=== PATIENT | female | born 1945 | race Two or more races ===

== ENCOUNTER 2021-10-30 12:20 | Outpatient (REF) | payer OTHER, SELFPAY ==
--- NOTE | ~2021-10-30 | XR_ITS ---
EXAMINATION: AP PELVIS AP BILATERAL KNEE STANDING. BILATERAL KNEE. CLINICAL INFORMATION: Hip pain and knee pain. COMPARISON: None TECHNIQUE: AP pelvis one view. AP bilateral knee 1 view. 2 views each knee. FINDINGS: AP pelvis: There is normal symmetry of bilateral hip joints and SI joints. There is no fracture, dislocation or bony abnormality. The soft tissues are normal. Bilateral AP knee: There is mild reduction in medial and lateral compartment joint space with mild periarticular spurring in the lateral compartments. No loose bodies or bony erosive changes. Left knee: There is reduction in the patellofemoral joint space with mild anterior superior patellar enthesophytes. No loose body seen. No bony erosive changes. Right knee: There is reduction the patellofemoral compartment joint space with anterior superior patellar spurring. There is mild suprapatellar joint effusion. No loose bodies, acute fracture or dislocation seen. XR/XR knee standing BI IMPRESSION: Markable AP pelvis exam. Mild degenerative changes tricompartment both knees. There is anterior superior patellar enthesophytes. Suspect mild right knee joint effusion. There is no acute fracture, loose bodies or bony erosive changes in either knee joints.
--- NOTE | ~2021-10-30 | XR_ITS ---
EXAMINATION: AP PELVIS AP BILATERAL KNEE STANDING. BILATERAL KNEE. CLINICAL INFORMATION: Hip pain and knee pain. COMPARISON: None TECHNIQUE: AP pelvis one view. AP bilateral knee 1 view. 2 views each knee. FINDINGS: AP pelvis: There is normal symmetry of bilateral hip joints and SI joints. There is no fracture, dislocation or bony abnormality. The soft tissues are normal. Bilateral AP knee: There is mild reduction in medial and lateral compartment joint space with mild periarticular spurring in the lateral compartments. No loose bodies or bony erosive changes. Left knee: There is reduction in the patellofemoral joint space with mild anterior superior patellar enthesophytes. No loose body seen. No bony erosive changes. Right knee: There is reduction the patellofemoral compartment joint space with anterior superior patellar spurring. There is mild suprapatellar joint effusion. No loose bodies, acute fracture or dislocation seen. XR/XR knee LT 2V IMPRESSION: Markable AP pelvis exam. Mild degenerative changes tricompartment both knees. There is anterior superior patellar enthesophytes. Suspect mild right knee joint effusion. There is no acute fracture, loose bodies or bony erosive changes in either knee joints.
--- NOTE | ~2021-10-30 | XR_ITS ---
EXAMINATION: AP PELVIS AP BILATERAL KNEE STANDING. BILATERAL KNEE. CLINICAL INFORMATION: Hip pain and knee pain. COMPARISON: None TECHNIQUE: AP pelvis one view. AP bilateral knee 1 view. 2 views each knee. FINDINGS: AP pelvis: There is normal symmetry of bilateral hip joints and SI joints. There is no fracture, dislocation or bony abnormality. The soft tissues are normal. Bilateral AP knee: There is mild reduction in medial and lateral compartment joint space with mild periarticular spurring in the lateral compartments. No loose bodies or bony erosive changes. Left knee: There is reduction in the patellofemoral joint space with mild anterior superior patellar enthesophytes. No loose body seen. No bony erosive changes. Right knee: There is reduction the patellofemoral compartment joint space with anterior superior patellar spurring. There is mild suprapatellar joint effusion. No loose bodies, acute fracture or dislocation seen. XR/XR knee RT 2V IMPRESSION: Markable AP pelvis exam. Mild degenerative changes tricompartment both knees. There is anterior superior patellar enthesophytes. Suspect mild right knee joint effusion. There is no acute fracture, loose bodies or bony erosive changes in either knee joints.
--- NOTE | ~2021-10-30 | XR_ITS ---
EXAMINATION: AP PELVIS AP BILATERAL KNEE STANDING. BILATERAL KNEE. CLINICAL INFORMATION: Hip pain and knee pain. COMPARISON: None TECHNIQUE: AP pelvis one view. AP bilateral knee 1 view. 2 views each knee. FINDINGS: AP pelvis: There is normal symmetry of bilateral hip joints and SI joints. There is no fracture, dislocation or bony abnormality. The soft tissues are normal. Bilateral AP knee: There is mild reduction in medial and lateral compartment joint space with mild periarticular spurring in the lateral compartments. No loose bodies or bony erosive changes. Left knee: There is reduction in the patellofemoral joint space with mild anterior superior patellar enthesophytes. No loose body seen. No bony erosive changes. Right knee: There is reduction the patellofemoral compartment joint space with anterior superior patellar spurring. There is mild suprapatellar joint effusion. No loose bodies, acute fracture or dislocation seen. XR/XR pelvis 1-2V IMPRESSION: Markable AP pelvis exam. Mild degenerative changes tricompartment both knees. There is anterior superior patellar enthesophytes. Suspect mild right knee joint effusion. There is no acute fracture, loose bodies or bony erosive changes in either knee joints.
== END 2021-10-30 12:21 | disposition home or self-care (01) ==
LOC: HO.HOSX 12:20
PROVIDERS: Visit Provider Orthopaedic Surgery
DX: M25.561 Pain in right knee (principal); M25.562 Pain in left knee; M25.551 Pain in right hip; M25.552 Pain in left hip
CPT/HCPCS: 72170; 73560; 73565; 99202

== ENCOUNTER → 2021-11-28 10:10 | Outpatient (BNVA) | payer OTHER, SELFPAY | PROVIDERS: PCP Family Medicine; Visit Provider Internal Medicine | DX: M17.0 Bilateral primary osteoarthritis of knee (principal); E11.9 Type 2 diabetes mellitus without complications; I10 Essential (primary) hypertension; E78.00 Pure hypercholesterolemia, unspecified; Z88.8 Allergy status to other drugs, medicaments and biological substances | CPT/HCPCS: 99202 ==

== ENCOUNTER → 2022-01-05 08:27 | Outpatient (BNVA) | payer OTHER, SELFPAY | PROVIDERS: PCP Family Medicine; Visit Provider Orthopaedic Surgery | DX: M17.0 Bilateral primary osteoarthritis of knee (principal) | CPT/HCPCS: 99212 ==

== ENCOUNTER 2022-03-20 06:47 | Outpatient (REF) | payer OTHER, SELFPAY | END 2022-03-20 06:48 | disposition home or self-care (01) | LOC: HO.RADIR 06:47 | PROVIDERS: Visit Provider Internal Medicine | DX: M25.561 Pain in right knee (principal); M25.562 Pain in left knee | CPT/HCPCS: 64447 ==

== ENCOUNTER → 2022-03-23 10:54 | Outpatient (BNVA) | payer OTHER, SELFPAY | PROVIDERS: PCP Family Medicine; Visit Provider Internal Medicine | DX: M25.561 Pain in right knee (principal); M25.562 Pain in left knee; Z98.890 Other specified postprocedural states | CPT/HCPCS: Q3014 ==

== ENCOUNTER 2022-05-06 07:23 | Outpatient (REF) | payer OTHER, SELFPAY | END 2022-05-06 07:24 | disposition home or self-care (01) | LOC: HO.RADIR 07:23 | PROVIDERS: Visit Provider Internal Medicine | DX: M17.0 Bilateral primary osteoarthritis of knee (principal); M25.562 Pain in left knee; M25.561 Pain in right knee | CPT/HCPCS: 64447 ==

== ENCOUNTER 2022-10-14 12:33 | Day surgery (SDC) | payer OTHER, SELFPAY ==
[2022-10-14 12:50] VITALS: BP 194/77; PULSE 86; RESP 20; TEMP 36.3; O2SAT 98; BMI 31.4
--- NOTE | 2022-10-14 13:53 | MHC.SHP ---
Pre-Procedural Eval Section A Date of Service: 10/14/22 The patient is an INPATIENT: No Changes since office visit: Yes Patient answered all questions The History & Physical has been completed within 30 days and I have reviewed it.: Yes Section B Chief Complaint: Pain in right knee,Pain in left knee Relevant Family History (Specify if Yes): No Relevant Social History: None Present Medications: see Short Stay Collaborative assessment Medical History: No relevant PMH History of Previous Operations: No relevant previous surgery Allergies: Allergies Allergy/AdvReac Type Severity Reaction Status Date / Time prednisone Allergy Unknown Verified 05/06/22 07:58 steroids Allergy Anaphylaxis Uncoded 05/06/22 07:58 Review of Systems Sugical H&P ROS: Negative: Constitution, Cardiovascular and Respiratory Exam Surgical H&P Exam: Normal: HEENT, Normal: Heart and Normal: Lungs Plan Diagnosis/Plan: Unchanged 76 F w/ chronic right knee pain. Positive diagnostic response to saphenous nerve block. Proceed with right saphenous nerve temporary stimulator placement. Patient in agreement with the plan. Time Spent With Patient Time: Total time managing care of this patient today ____ minutes.
--- NOTE | 2022-10-14 13:56 | PM.OP ---
Brief Operative Note Date of Service: 10/14/22 Pre-op diagnosis: Chronic right knee pain, right knee osteoarthritis Post-op diagnosis: same Procedure: Temporary right saphenous nerve stimulator placement Implants: SPR temporary nerve stimulation lead Surgeon: Isael Archer MD Anesthesia: local Was an Home And Family Living Professor used for this Procedure?: No Estimated blood loss (mL): 1 Pathology: none sent Condition: stable Disposition: same day
--- NOTE | 2022-10-14 13:58 | P.OP_ITS ---
Operative Note Operative Note Date of Service: 10/14/22 Narrative: Peripheral Nerve Stimulation Temporary Lead Placement, Ultrasound-Guided, Saphenous Nerve, Right ? After the risks, benefits and alternatives were discussed with the patient and informed consentwas obtained, patient was placed in the supine position and padded to foster comfort. Appropriate skin and bony landmarks were identified, and pertinent vascular structures were located. The skin overlying the needle entry site was prepped and draped in sterile fashion. Ultrasound was used to identify the femoral artery, the femoral vein and the saphenous nerve. After identifying and marking the intended target along the course of the saphenous nerve, the skin around the planned entry point and the subcutaneous tissues were injected with local anesthetic. An introducer needle and stimulating probe were assembled, inserted and advanced along the intended course of the saphenous; nerve, taking care to maintain the proper depth of insertion as the introducer was advanced under ultrasound guidance. The introducer needle was delivered to a location in proximity to the nerve taking care not to puncture the femoral artery or the vein. Multiple stimulation parameters were used to deliver stimulation to the saphenous nerve in concert with stimulating at multiple positions around the nerve. Nerve target acquisition was confirmed noting generation of sensory and mild motor effects (paresthesia, muscle tension, etc) in the medial knee, leg and ankle; corresponding to the distribution of the saphenous nerve. Various electrical parameter combinations were tested, and the lead location was adjusted (physic ally relocated under ultrasound guidance) until the patient indicated medial knee paresthesia and tension overlapping the distribution of the patient?s typical region of pain. The stimulating probe was removed from the introducer and a percutaneous lead was guided through the needle and delivered to a location in similar proximity to the nerve. Final location was verified with electrical stimulation and documented. The introducer needle was removed, and the exposed end of the percutaneous lead was attached to an external stimulator unit. Various electrical parameter combinations were again tested until the patient indicated paresthesia and muscle tension overlapping the distribution of the patient?s typical region of pain. After confirming that lead impedance was in the normal range, the external unit was detached, the needle was removed, and the lead was anchored at the skin. The lead was threaded into the connector block and electrical continuity and desired patient response was confirmed. The connector block was attached to the external stimulator unit. The site was covered with a sterile occlusive dressing. A final ultrasound image was taken to document final placement. The patient was observed for stability of vital signs and comfort.
[2022-10-14 14:35] VITALS: BP 157/79; PULSE 69; RESP 16; TEMP 36.8; O2SAT 95
== END 2022-10-14 15:20 | disposition home or self-care (01) ==
PROVIDERS: Visit Provider Internal Medicine
PROC: (CPT 64555; principal; 2022-10-14 13:40)
DX: M25.561 Pain in right knee (principal); M17.11 Unilateral primary osteoarthritis, right knee; G89.29 Other chronic pain; J45.909 Unspecified asthma, uncomplicated; E78.00 Pure hypercholesterolemia, unspecified; I10 Essential (primary) hypertension; E11.9 Type 2 diabetes mellitus without complications; Z79.84 Long term (current) use of oral hypoglycemic drugs; Z79.899 Other long term (current) drug therapy; Z88.8 Allergy status to other drugs, medicaments and biological substances
CPT/HCPCS: 64555; C1778

== ENCOUNTER → 2022-10-19 08:07 | Outpatient (BNVA) | payer OTHER, SELFPAY | PROVIDERS: Visit Provider Internal Medicine | DX: M25.561 Pain in right knee (principal); M25.562 Pain in left knee; Z98.890 Other specified postprocedural states | CPT/HCPCS: 99212 ==

== ENCOUNTER → 2022-12-11 07:56 | Outpatient (BNVA) | payer OTHER, SELFPAY | PROVIDERS: PCP Family Medicine; Visit Provider Internal Medicine | DX: M25.561 Pain in right knee (principal); M25.562 Pain in left knee | CPT/HCPCS: 99212 ==

== ENCOUNTER 2023-08-03 09:17 | Outpatient (AMB) | payer OTHER, SELFPAY ==
[2023-08-03 09:25] VITALS: BP 120/70; PULSE 80; BMI 30.9
--- NOTE | 2023-08-03 09:25 | MHC.OFFVIS ---
Intake Vital Signs 08/03/23 09:25 Height 5 ft 6 in Weight 191 lb 8 oz BMI 30.9 BP 120/70 Blood Pressure Location Lt brachial Position Sitting Pulse 80 Pulse Source Pulse Oximeter Intake Visit Reasons: Hypertension Instrumental Musician Required: Yes Instrumental Musician Name: Blanca Accompanied by: Child Allergies prednisone Allergy (Verified 08/03/23 09:35) Unknown steroids Allergy (Uncoded 12/11/22 08:03) Anaphylaxis HPI HPI Comments History of Present Illness Details I had the privilege of seeing Anneliese in follow-up for mild left renal artery stenosis and hypertension. She is a diabetic and blood sugars are fairly better control. She has been on multiple antihypertensive medications and her blood pressure is at goal. His no history of coronary artery disease, CVA, CHF, P 80. She denies any chest pain, shortness of breath, proximal nocturnal dyspnea, orthopnea, orthostatic symptoms, urinary symptoms. She has no pedal edema. She is compliant with her medications. She does not consume excess salt. She had a DVT and had taken Eliquis. She currently feels well. [facility] Medical History (Updated 08/04/23 @ 06:15 by Marlon Borjas MD) Bilateral knee pain Diabetes Hypercholesteremia Asthma Hypertension Surgical History History of appendectomy Surgical history of tubal ligation Physical Exam Vital Signs: Last Vital Signs Pulse 80 08/03/23 09:25 BP 120/70 08/03/23 09:25 BMI result Body Mass Index 30.9 Const General: comfortable and no acute distress Orientation/consciousness: patient oriented x3 HEENT Head: Yes normocephalic Mouth: Normal oral and palatal mucosa present Eyes EOM: EOMs intact bilaterally Neck Neck: Yes supple Resp Auscultation: clear to auscultation bilaterally Cardio Jugular venous distension: no JVD Rate: regular rate GI Palpation (GI): Soft to palpation Auscultation: normal bowel sounds General: Yes no CVA tenderness Back/Spine/Pelvis Back: no CVA tenderness Skin General skin exam: no rashes or lesions noted Neuro General: patient oriented x3 and moves all extremities Extrem General: Yes no pedal edema Assessment & Plan Assessment & Plan (1) Hypertension: Code(s): I10 - Essential (primary) hypertension Qualifiers: Hypertension type: primary hypertension Qualified Code(s): I10 - Essential (primary) hypertension (2) Renal artery stenosis, [place]: Code(s): I70.1 - Atherosclerosis of renal artery Plan Anneliese is known to have longstanding hypertension. She was found to have mild left renal artery stenosis. Her blood pressure in the office today was 120/80 mmHg left arm sitting position. She has no orthostasis. Her renal functions are at baseline. She tries to cut back on her salt intake. She does not have any hypervolemia. She needs to lose some weight. I plan to do a repeat Doppler of renal arteries after next visit. She is on statins. I did not make any medication changes today. All her and her daughter's questions were answered. Follow-up blood work and urine studies were ordered. Time spent for the encounter, retrieval of data and documentation 31 minutes. Orders: Orders Calcium 08/03/23 I10 - Essential (primary) hypertension UA and rflx microscopic 08/03/23 I10 - Essential (primary) hypertension Electrolytes 08/03/23 I10 - Essential (primary) hypertension Blood Urea Nitrogen 08/03/23 I10 - Essential (primary) hypertension Creatinine 08/03/23 I10 - Essential (primary) hypertension Protein Creatinine Ratio, Ur 08/03/23 I10 - Essential (primary) hypertension Coding Level of Care Code Est Pt Level 4 (15936) Diagnoses Primary hypertension I10 Hypertension type: primary hypertension Renal artery stenosis, [place] I70.1
== END 2023-08-03 10:17 | disposition home or self-care (01) ==
PROVIDERS: PCP Family Medicine; Visit Provider Internal Medicine Nephrology
DX: I10 Essential (primary) hypertension (principal); I70.1 Atherosclerosis of renal artery
CPT/HCPCS: 99214

== ENCOUNTER → 2023-08-03 09:17 | Outpatient (BNVA) | payer OTHER, SELFPAY | PROVIDERS: PCP Family Medicine; Visit Provider Internal Medicine Nephrology | DX: I70.1 Atherosclerosis of renal artery (principal); I10 Essential (primary) hypertension | CPT/HCPCS: 99212 ==

== ENCOUNTER 2023-11-02 09:37 | Outpatient (AMB) | payer OTHER, SELFPAY ==
[2023-11-02 09:44] VITALS: BP 160/80; PULSE 78; BMI 31.0
--- NOTE | 2023-11-02 09:44 | HO.NEPHOV_ITS ---
HPI HPI Comments History of Present Illness Details I had the privilege of seeing Anneliese in follow-up for mild left renal artery stenosis and hypertension. She is a diabetic and blood sugars are fairly better control. She has been on multiple antihypertensive medications and her blood pressure is at goal. His no history of coronary artery disease, CVA, CHF, P 80. She denies any chest pain, shortness of breath, proximal nocturnal dyspnea, orthopnea, orthostatic symptoms, urinary symptoms. She has no pedal edema. She is compliant with her medications. She does not consume excess salt. She had a DVT and had taken Eliquis. She currently feels well. [facility] Medical History (Updated 08/04/23 @ 06:15 by Marlon Borjas MD) Bilateral knee pain Diabetes Hypercholesteremia Asthma Hypertension Surgical History History of appendectomy Surgical history of tubal ligation Vital Signs 11/02/23 09:44 Height 5 ft 6 in Weight 192 lb 6 oz BMI 31.0 BP 160/80 H Blood Pressure Location Lt brachial Position Sitting Pulse 78 Pulse Source Pulse Oximeter Physical Exam Vital Signs: Last Vital Signs Pulse 78 11/02/23 09:44 BP 160/80 H 11/02/23 09:44 BMI result Body Mass Index 31.0 Const General: comfortable and no acute distress Orientation/consciousness: patient oriented x3 HEENT Head: Yes normocephalic Mouth: Normal oral and palatal mucosa present Eyes EOM: EOMs intact bilaterally Neck Neck: Yes supple Resp Auscultation: clear to auscultation bilaterally Cardio Jugular venous distension: no JVD Rate: regular rate GI Palpation (GI): Soft to palpation Auscultation: normal bowel sounds General: Yes no CVA tenderness Back/Spine/Pelvis Back: no CVA tenderness Skin General skin exam: no rashes or lesions noted Neuro General: patient oriented x3 and moves all extremities Extrem General: Yes no pedal edema Assessment & Plan Assessment & Plan (1) Renal artery stenosis, [place]: Code(s): I70.1 - Atherosclerosis of renal artery (2) Hypertension: Code(s): I10 - Essential (primary) hypertension Qualifiers: Hypertension type: primary hypertension Qualified Code(s): I10 - Essential (primary) hypertension Plan Anneliese is known to have longstanding hypertension. She was found to have mild left renal artery stenosis. Her blood pressure in the office today was 120/80 mmHg left arm sitting position. She has no orthostasis. Her renal functions are at baseline. She tries to cut back on her salt intake. She does not have any hypervolemia. She needs to lose some weight. I plan to do a repeat Doppler of renal arteries with time. She is on statins. I did not make any medication changes today. All her and her daughter's questions were answered. Follow-up blood work and urine studies were ordered. Orders: Orders Blood Urea Nitrogen Today I10 - Essential (primary) hypertension, I70.1 - Atherosclerosis of renal artery Protein Creatinine Ratio, Ur Today I10 - Essential (primary) hypertension, I70.1 - Atherosclerosis of renal artery Electrolytes Today I10 - Essential (primary) hypertension, I70.1 - Atherosclerosis of renal artery Creatinine Today I10 - Essential (primary) hypertension, I70.1 - Atherosclerosis of renal artery Coding Level of Care Code Est Pt Level 4 (99965) Diagnoses Renal artery stenosis, [place] I70.1 Primary hypertension I10 Hypertension type: primary hypertension Results Reviewed Nephrology Results: No Data to Display
== END 2023-11-02 10:20 | disposition home or self-care (01) ==
PROVIDERS: PCP Family Medicine; Visit Provider Internal Medicine Nephrology
DX: I70.1 Atherosclerosis of renal artery (principal); I10 Essential (primary) hypertension
CPT/HCPCS: 99214

== ENCOUNTER → 2023-11-02 09:37 | Outpatient (BNVA) | payer OTHER, SELFPAY | PROVIDERS: PCP Family Medicine; Visit Provider Internal Medicine Nephrology | DX: I70.1 Atherosclerosis of renal artery (principal); I10 Essential (primary) hypertension | CPT/HCPCS: 99212 ==

== ENCOUNTER 2023-12-06 09:41 | Outpatient (AMB) | payer OTHER, SELFPAY ==
--- NOTE | 2023-12-06 09:54 | A.OFFVIS_ITS ---
Intake Vital Signs 12/06/23 09:55 Height 5 ft 6 in Weight 192 lb BMI 31.0 Intake Visit Reasons: Newprob- LT hip pain Intake Note: Anneliese is a 77 year old female who presents today for a new problem visit with complaints of left hip pain. Patient reports that she has had pain in the left hip for about 3 weekss now. Pain is felt in the buttock and radiates down the leg. She feels like something is pinched, she feels pins and needles. Takes Tylenol ,Advil, Lidocane patches, as well as heat and cold application. hx of procedures with pain mgmt: 10/14/22: Right Sprint PNS Implant ? >80% relief. 05/06/22: Left adductor canal saphenous nerve block, ultrasound-guided: 03/20/22: Right Diagnostic Saphenous NB at Adductor Canal ? 100% pain relief. Accompanied by: Daughter Allergies prednisone Allergy (Verified 12/06/23 09:56) Unknown steroids Allergy (Uncoded 12/06/23 09:56) Anaphylaxis HPI Newprob- LT hip pain HPI Details Anneliese is a 77 year old female who presents today for a new problem visit with complaints of left hip pain. Patient reports that she has had pain in the left hip for about 3 weekss now. Pain is felt in the buttock and radiates down the leg. She feels like something is pinched, she feels pins and needles. Takes Tylenol ,Advil, Lidocane patches, as well as heat and cold application. hx of procedures with pain mgmt: 10/14/22: Right Sprint PNS Implant ? >80% relief. 05/06/22: Left adductor canal saphenous nerve block, ultrasound-guided: 03/20/22: Right Diagnostic Saphenous NB at Adductor Canal ? 100% pain relief. [facility] Medical History (Updated 12/11/23 @ 08:57 by Jose Sellers MD) Bilateral knee pain Diabetes Hypercholesteremia Asthma Hypertension Surgical History History of appendectomy Surgical history of tubal ligation Physical Exam Vital Signs: BMI result Body Mass Index 31.0 Extrem Other: negative impingemnent test hip motion is without pain Results Reviewed Results Reviewed: I personally reviewed relevant radiographs. There is no appreciable hip derangement or arthritic changes Assessment & Plan Assessment & Plan (1) Localized osteoarthritis of knees, bilateral: Code(s): M17.0 - Bilateral primary osteoarthritis of knee Plan: This is a 78 yo F with 3 weeks of left hip pain She has no hip OA. Her symptoms are not related to her hip. She is deconditioned with multiple medical comorbidities. I educated her about anatomy and her poor gait mechanics. (2) Lumbar back pain with radiculopathy affecting left lower extremity: Code(s): M54.16 - Radiculopathy, lumbar region Plan: PT and return to pain management if pain persists. Coding Level of Care Code Est Pt Level 3 (38400) Diagnoses Localized osteoarthritis of knees, bilateral M17.0 Lumbar back pain with radiculopathy affecting left lower extremity M54.16
[2023-12-06 09:55] VITALS: BMI 31.0
== END 2023-12-06 10:26 | disposition home or self-care (01) ==
PROVIDERS: PCP Family Medicine; Visit Provider Orthopaedic Surgery
DX: M17.0 Bilateral primary osteoarthritis of knee (principal); M54.16 Radiculopathy, lumbar region
CPT/HCPCS: 99213

== ENCOUNTER → 2023-12-06 09:41 | Outpatient (BNVA) | payer OTHER, SELFPAY | PROVIDERS: PCP Family Medicine; Visit Provider Orthopaedic Surgery | DX: M17.0 Bilateral primary osteoarthritis of knee (principal); M54.16 Radiculopathy, lumbar region | CPT/HCPCS: 99212 ==

== ENCOUNTER 2024-05-25 09:24 | Outpatient (AMB) | payer OTHER, SELFPAY ==
--- NOTE | 2024-05-25 09:32 | HO.NEPHOV_ITS ---
Vital Signs 05/25/24 09:41 Height 5 ft 6 in Weight 187 lb 8 oz BMI 30.3 BP 144/70 H Blood Pressure Location Lt brachial Position Sitting Pulse 68 Pulse Source Pulse Oximeter Pulse Oximetry (%) 97 Oxygen Delivery Method Room Air Intake Visit Reasons[place] [facility] [place] [employer] Required: No Accompanied by: Daughter Allergies prednisone Allergy (Verified 05/25/24 09:42) Unknown steroids Allergy (Uncoded 12/06/23 09:56) Anaphylaxis HPI Comments Details: I had the privilege of seeing Anneliese in follow-up for mild left renal artery stenosis and hypertension. She recently had a hospitalization with chest pain and hypertensive urgency. She is a diabetic and blood sugars are fairly better control. She has been on multiple antihypertensive medications and her blood pressure is at goal at home after hospital discharge. She has no history of coronary artery disease, CVA, CHF, P 80. She denies any chest pain, shortness of breath, proximal nocturnal dyspnea, orthopnea, orthostatic symptoms, urinary symptoms. She has no pedal edema. She is compliant with her medications. She does not consume excess salt. She currently feels well [facility] Medical History (Updated 12/11/23 @ 08:57 by Jose Sellers MD) Bilateral knee pain Diabetes Hypercholesteremia Asthma Hypertension Surgical History History of appendectomy Surgical history of tubal ligation Review of Systems Const All systems reviewed & are unremarkable except as noted in HPI and below Physical Exam Vital Signs: Last Vital Signs Pulse 68 05/25/24 09:41 BP 144/70 H 05/25/24 09:41 Pulse Ox 97 05/25/24 09:41 Oxygen Delivery Method Room Air 05/25/24 09:41 BMI result Body Mass Index 30.3 Const General: comfortable and no acute distress Orientation/consciousness: patient oriented x3 HEENT Head: Yes normocephalic Mouth: Normal oral and palatal mucosa present Eyes EOM: EOMs intact bilaterally Neck Neck: Yes supple Resp Auscultation: clear to auscultation bilaterally Cardio Jugular venous distension: no JVD Rate: regular rate GI Palpation (GI): Soft to palpation Auscultation: normal bowel sounds General: Yes no CVA tenderness Back/Spine/Pelvis Back: no CVA tenderness Skin General skin exam: no rashes or lesions noted Neuro General: patient oriented x3 and moves all extremities Extrem General: Yes no pedal edema Results Reviewed Nephrology Results: No Data to Display Assessment & Plan Assessment & Plan (1) Renal artery stenosis, [place]: Code(s): I70.1 - Atherosclerosis of renal artery Category: Medical (2) Hypertension: Code(s): I10 - Essential (primary) hypertension Category: Medical Qualifiers: Hypertension type: primary hypertension Qualified Code(s): I10 - Essential (primary) hypertension Plan Anneliese is known to have longstanding hypertension. She was found to have mild left renal artery stenosis. She recently had a hospitalization with chest pain and hypertensive urgency. Blood pressure is well controlled now. She has no orthostasis. Her renal functions are at baseline. She tries to cut back on her salt intake. She does not have any hypervolemia. She needs to lose some weight. I shall order repeat Doppler of renal arteries . She is on statins. I did not make any medication changes today. All her and her daughter's questions were answered. Follow-up blood work ordered. Coding Level of Care Code Est Pt Level 4 (68823) Diagnoses Renal artery stenosis, [place] I70.1 Primary hypertension I10 Hypertension type: primary hypertension
[2024-05-25 09:41] VITALS: BP 144/70; PULSE 68; O2SAT 97; BMI 30.3
== END 2024-05-25 10:08 | disposition home or self-care (01) ==
PROVIDERS: PCP Family Medicine; Visit Provider Internal Medicine Nephrology
DX: I70.1 Atherosclerosis of renal artery (principal); I10 Essential (primary) hypertension
CPT/HCPCS: 99214

== ENCOUNTER → 2024-05-25 09:24 | Outpatient (BNVA) | payer OTHER, SELFPAY | PROVIDERS: PCP Family Medicine; Visit Provider Internal Medicine Nephrology | DX: I70.1 Atherosclerosis of renal artery (principal); I10 Essential (primary) hypertension | CPT/HCPCS: 99212 ==

== ENCOUNTER 2024-06-15 12:00 | Outpatient (AMB) | payer OTHER, SELFPAY ==
[2024-06-15 12:14] VITALS: BP 124/68; PULSE 78; O2SAT 95; BMI 29.9
--- NOTE | 2024-06-15 12:14 | HO.NEPHOV ---
Vital Signs 06/15/24 12:14 Height 5 ft 6 in Weight 185 lb 2 oz BMI 29.9 BP 124/68 Blood Pressure Location Lt brachial Position Sitting Pulse 78 Pulse Source Pulse Oximeter Pulse Oximetry (%) 95 Oxygen Delivery Method Room Air Intake Visit Reasons: R/S 05/16/2024/ M Extension Course Counselor Required: No Accompanied by: Daughter Allergies prednisone Allergy (Verified 06/15/24 12:18) Unknown steroids Allergy (Uncoded 12/06/23 09:56) Anaphylaxis HPI Comments Details: I had the privilege of seeing Anneliese in follow-up for mild left renal artery stenosis and hypertension. She recently had a hospitalization with chest pain and hypertensive urgency. She is a diabetic and blood sugars are fairly better control. She has been on multiple antihypertensive medications and her blood pressure is at goal at home after hospital discharge. She has no history of coronary artery disease, CVA, CHF or PAD. She denies any chest pain, shortness of breath, proximal nocturnal dyspnea, orthopnea, orthostatic symptoms, urinary symptoms. She has no pedal edema. She is compliant with her medications. She does not consume excess salt. She currently feels well [facility] Medical History (Updated 12/11/23 @ 08:57 by Jose Sellers MD) Bilateral knee pain Diabetes Hypercholesteremia Asthma Hypertension Surgical History History of appendectomy Surgical history of tubal ligation Review of Systems Const All systems reviewed & are unremarkable except as noted in HPI and below Physical Exam Vital Signs: Last Vital Signs Pulse 78 06/15/24 12:14 BP 124/68 06/15/24 12:14 Pulse Ox 95 06/15/24 12:14 Oxygen Delivery Method Room Air 06/15/24 12:14 BMI result Body Mass Index 29.9 Const General: comfortable and no acute distress Orientation/consciousness: patient oriented x3 HEENT Head: Yes normocephalic Mouth: Normal oral and palatal mucosa present Eyes EOM: EOMs intact bilaterally Neck Neck: Yes supple Resp Auscultation: clear to auscultation bilaterally Cardio Jugular venous distension: no JVD Rate: regular rate GI Palpation (GI): Soft to palpation Auscultation: normal bowel sounds General: Yes no CVA tenderness Back/Spine/Pelvis Back: no CVA tenderness Skin General skin exam: no rashes or lesions noted Neuro General: patient oriented x3 and moves all extremities Extrem General: Yes no pedal edema Results Reviewed Nephrology Results: No Data to Display Assessment & Plan Assessment & Plan (1) Hypertension: Code(s): I10 - Essential (primary) hypertension Category: Medical Qualifiers: Hypertension type: primary hypertension Qualified Code(s): I10 - Essential (primary) hypertension Plan Anneliese is known to have longstanding hypertension. She was found to have mild left renal artery stenosis. She recently had a hospitalization with chest pain and hypertensive urgency. Her blood pressure is well controlled now. She has no orthostasis. Her renal functions are at baseline. She tries to cut back on her salt intake. She does not have any hypervolemia. She needs to lose some weight. I shall order repeat Doppler of renal arteries after next visit . She is on statins. I did not make any medication changes today. All her and her daughter's questions were answered. Follow-up blood work ordered. Coding Level of Care Code Est Pt Level 4 (17278) Diagnoses Primary hypertension I10 Hypertension type: primary hypertension
== END 2024-06-15 12:45 | disposition home or self-care (01) ==
PROVIDERS: PCP Family Medicine; Visit Provider Internal Medicine Nephrology
DX: I10 Essential (primary) hypertension (principal)
CPT/HCPCS: 99214

== ENCOUNTER → 2024-06-15 12:00 | Outpatient (BNVA) | payer OTHER, SELFPAY | PROVIDERS: PCP Family Medicine; Visit Provider Internal Medicine Nephrology | DX: I10 Essential (primary) hypertension (principal) | CPT/HCPCS: 99212 ==

== ENCOUNTER 2024-06-16 07:57 | Outpatient (AMB) | payer OTHER, SELFPAY ==
--- NOTE | 2024-06-16 07:59 | A.OFFVIS_ITS ---
Vital Signs 06/16/24 08:01 Height 5 ft 6 in Weight 183 lb BMI 29.5 BP 165/71 H Blood Pressure Location Lt brachial Position Sitting Respiration 16 Pulse 78 Pulse Source Pulse Oximeter Pulse Oximetry (%) 96 Oxygen Delivery Method Room Air Intake Visit Reasons: F/U Pain came back R/L Knee Programmer Analyst Consultant Required: Yes Programmer Analyst Consultant Name: Pt prefers dtr to translate Allergies prednisone Allergy (Verified 06/16/24 08:03) Unknown steroids Allergy (Uncoded 06/16/24 08:03) Anaphylaxis Medication List - Last Reconciled 06/16/24 by Carmita Morales LPN acetaminophen ER mg PO apixaban (Eliquis) 5 mg PO BID buspirone 15 mg PO BID calcium citrate-vitamin D3 315 mg-6.25 mcg (250 unit) 2 tabs PO BID conjugated estrogens (Premarin) vaginal desloratadine (Clarinex) 5 mg PO DAILY diclofenac sodium 1% topical diltiazem HCl CD 180 mg PO DAILY escitalopram oxalate 10 mg PO DAILY fluticasone propionate 50 mcg/actuation 2 sprays intranasal DAILY PRN hydralazine 25 mg PO TID levothyroxine 50 mcg PO DAILY liraglutide (Victoza 2-Jaspal) 0.6 mg subcut DAILY lisinopril 40 mg PO DAILY mepolizumab (Nucala) mg subcut mirtazapine 7.5 mg PO DAILY montelukast 10 mg PO DAILY pantoprazole 40 mg PO DAILY pravastatin 80 mg PO BEDTIME spironolactone 25 mg PO DAILY 90 days terbinafine HCl 1% 1 appl topical BID HPI HPI F/U Pain came back R/L Knee: Details: 78-year-old female who presents today to the office for follow-up pain in the bilateral knee. Patient is accompanied by her daughter. She would like her daughter to translate for this visit. She had an excellent relief following temporary stimulation of the right peripheral nerve stimulator last year. She states that her right-sided knee pain is stable and not bothersome, but her left side is worse. She wants to proceed with a left-sided peripheral nerve stimulator device for the pain relief. She has tried gel injections with no significant relief. She is allergic to steroids. Past Procedures: 10/14/22: Right Sprint PNS Implant ? >80% relief for more than 1 year. 05/06/22: Left adductor canal saphenous nerve block, ultrasound-guided: 03/20/22: Right Diagnostic Saphenous NB at Adductor Canal ? 100% pain relief. [facility] Medical History (Updated 12/11/23 @ 08:57 by Jose Sellers MD) Bilateral knee pain Diabetes Hypercholesteremia Asthma Hypertension Surgical History History of appendectomy Surgical history of tubal ligation Review of Systems Const All systems reviewed & are unremarkable except as noted in HPI and below Physical Exam Vital Signs: Last Vital Signs Pulse 78 06/16/24 08:01 Resp 16 06/16/24 08:01 BP 165/71 H 06/16/24 08:01 Pulse Ox 96 06/16/24 08:01 Oxygen Delivery Method Room Air 06/16/24 08:01 BMI result Body Mass Index 29.5 General: Appears afebrile. Alert and oriented. Mood and affect appropriate. Follows and participates in conversation appropriately. Respiratory effort is unlabored. Able to transition from sit to stand unassisted. Ambulates with bilaterally normal heel strike and toe off. Results Reviewed Results Reviewed: No imaging is available for review. Assessment & Plan Assessment & Plan (1) Bilateral knee pain: Code(s): M25.561 - Pain in right knee; M25.562 - Pain in left knee Category: Medical Plan Discussed proceeding with left sided PNS device as a possible treatment option for the left sided knee pain symptoms. We will schedule her for a left temporary saphenous nerve stimulator placement. Discussed the risks and benefits of the procedure with the patient in detail. All questions were answered. The patient is on board with the plan. Justification for interventional therapy: ? Patient with average pain > 6/10 ? Patient has exhausted conservative therapy: gel injections and is not eligible for cortisone injections due to allergy. ? Patient unable to tolerate physical therapy due to pain ? More than 80% relief for more than one year on the right side. . Patient has a good understanding of their pain condition and has appropriate mental and social support Scribed for Dr. Archer by Reagan Pritchett, medical office worker, on 06/16/2024. I, Dr. Archer, have personally reviewed and agree with the information entered by the scribe. Coding Level of Care Code Est Pt Level 3 (32944) Diagnoses Bilateral knee pain M25.561; M25.562
[2024-06-16 08:01] VITALS: BP 165/71; PULSE 78; RESP 16; O2SAT 96; BMI 29.5
== END 2024-06-16 08:33 | disposition home or self-care (01) ==
PROVIDERS: PCP Family Medicine; Visit Provider Internal Medicine
DX: M25.561 Pain in right knee (principal); M25.562 Pain in left knee
CPT/HCPCS: 99213

== ENCOUNTER → 2024-06-16 07:57 | Outpatient (BNVA) | payer OTHER, SELFPAY | PROVIDERS: PCP Family Medicine; Visit Provider Internal Medicine | DX: M25.561 Pain in right knee (principal); M25.562 Pain in left knee | CPT/HCPCS: 99212 ==

== ENCOUNTER 2024-07-06 06:25 | Outpatient (REF) | payer OTHER, SELFPAY | END 2024-07-06 06:26 | disposition home or self-care (01) | LOC: CF 06:25 | PROVIDERS: Visit Provider Internal Medicine | DX: M17.0 Bilateral primary osteoarthritis of knee (principal); Z45.42 Encounter for adjustment and management of neurostimulator | CPT/HCPCS: 64555; C1778; J2003 ==

== ENCOUNTER 2024-07-06 12:00 | Outpatient (AMB) | payer OTHER, SELFPAY ==
--- OUTSIDE RECORDS SUMMARY | 2024-07-06 12:01 | XMS_ITS | Continuity of Care Document ---
Author Organization [facility] Address [address] [place] [id number]- Care Team Providers Care School Administrator Name Role Phone Marychuy MCCLAIN, Jessica Primary Care Physician Encounter [facility] Date(s): 10/25/19 - 11/04/19 [facility] [address] [address]- [facility] Attending Physician: Admtr, Ar8 Allergies, Adverse Reactions, Alerts Substance Reaction Severity Status dexamethasone Swelling of throat 2 20-NOV-2015 19:14:30<$> Persistent Mild Active methylPREDNISolone Increase blood press ure inmediately after ingesting it w SOB, vomits and dizziness Persistent Moderate Active predniSONE 1 Itchy skin eruption Persistent Severe Act royer tramadol Itch Persistent Mild Active 1Not associated with swelling nor shortness of breath Immunizations Given and Recorded Vaccine Date Status Refusal Reason influenza virus vaccine, inactivated 06/24/18 Give n influenza virus vaccine, inactivated 06/15/17 Give n influenza virus vaccine, inactivated 09/29/16 Give n influenza virus vaccine, inactivated 1 07/24/15 Gi javon influenza virus vaccine, inactivated 12/25/14 Give n influenza virus vaccine, inactivated 06/22/13 Give n influenza virus vaccine, inactivated 06/15/12 Give n influenza virus vaccine, inactivated 2 10/08/11 Gi javon influenza virus vaccine, inactivated 3 10/16/09 Gi javon influenza virus vaccine, inactivated 4 07/26/08 Gi javon influenza virus vaccine, inactivated 07/14/07 Give n influenza virus vaccine, inactivated 5 07/29/06 Gi javon tetanus/diphtheria/pertussis, acel(Tdap) 05/21/15 Given pneumococcal 13-valent vaccine 12/25/14 Given Zoster Vaccine Live 6 11/21/12 Given tetanus-diphtheria toxoids (Td) 7 11/20/10 Given pneumococcal 23-valent vaccine 8 11/20/10 Given pneumococcal 23-valent vaccine 9 08/13/99 Given 1Result Comment: [07/25/2015] ORDERED BY DR. MERINO 2Admin Note: VIS 04/07/11 GIVEN 3Admin Note: VIS 04/23/2009 GIVEN. Instr. in s&s of anaphylaxis and local reaction, and risks ofvaccine. VILMA 4Admin Note: 03/12/2009 given 5Admin Note: vis..03/12/06 6Admin Note: PT BRINGS IN VIS 05/19 7Admin Note: VIS 07/31/08 GIVEN 8Admin Note: VIS 06/18/09 GIVEN 9Admin Note: GIVEN BY NURSE Medications acetaminophen 650 mg oral tablet, extended release 2 tablet = 1,300 mg, By Mouth, Every 8 hours, PRN Pain, (do not crush or chew) (not to exceed 6 tablets/day); 90 days, # 300 tablet, 3 Refills, Maintenance, 08/30/19 9:25:00 EST, ER Tablet, [facility] #[id number], 162.5, cm, 07/25/19 9:45:00 ES... Start Date: 08/30/19 Status: Ordered acetaminophen-HYDROcodone 325 mg-5 mg oral tablet 1 tablet, By Mouth, Every 4 hours, PRN for pain, # 12 tablet, 0 Refills, Acute 11/10/19 22:32:00 EST, 11/03/19 22:31:00 EST, Tablet, [facility][id number], Partial fill upon patient request, 1 tablet By Mouth Every 4 hours,PRN:for pain, 165, cm,... Start Date: 11/03/19 Stop Date: 11/10/19 Status: Ordered albuterol 0.083% inhalation solution 3 mL = 2.5 mg, Inhalation, Every 6 hours, # 25 each, 2 Refills, Maintenance, 06/28/19 7:33:09 EDT Start Date: 06/28/19 Stop Date: 09/26/19 Status: Ordered Alcohol Wipes See Instructions, # 50 each, Refills 11, Tot. Refills 11, Maintenance, use daily for blood sugar testing once a day Dx DM type 2, E11.9, Diabetes mellitus type 2, 12/16/18 14:27:47 EDT, Compound Start Date: 12/16/18 Status: Ordered aspirin 81 mg oral delayed release tablet 81 mg, 1, tablet, By Mouth, Daily, with food, # 90 tablet, Refills 3, Tot. Refills 3, Maintenance, 01/02/19 12:49:20 EDT, Route to Pharmacy Electronically, [id number], [facility] [id number] Start Date: 01/02/19 Status: Ordered calcium (as citrate)-vitamin D 315 mg-250 intl units oral tablet 2 tablet, By Mouth, 2 times a day, Tej, # 360 tablet, 3 Refills, Maintenance, 01/02/19 12:49:20 EDT, Tablet, 2 tablet By Mouth 2 times a day,x90 days,Instr:Tej Start Date: 01/02/19 Stop Date: 12/28/19 Status: Ordered citalopram 20 mg oral tablet 20 mg, 1, tablet, By Mouth, Daily, # 90 tablet, Refills 3, Tot. Refills 3, Maintenance, 07/18/19 10:44:28 EST, Route to Pharmacy Electronically, [id number], [facility] #[id number], MD is awared of interaction w prilosec Start Date: 07/18/19 Status: Ordered Colace sodium 100 mg oral capsule 100 mg, 1, capsule, By Mouth, 2 times a day, PRN, with plenty of water, # 180 capsule, Refills 3, Tot. Refills 3, Maintenance, as needed for constipation, 08/30/19 9:25:00 EST, Route to Pharmacy Electronically, [facility] #[id number], 162.5, cm,... Start Date: 08/30/19 Status: Ordered dilTIAZem 360 mg/24 hours oral tablet, extended release 1 tablet = 360 mg, By Mouth, Daily, # 30 tablet, 11 Refills, Maintenance, 08/12/19 13:22:46 EST Start Date: 08/12/19 Status: Ordered diphenhydrAMINE 50 mg oral tablet 1 tablet = 50 mg, By Mouth, Every 6 hours, PRN as needed for urticaria, # 48 tablet, 3 Refills, Maintenance, 10/12/17 22:51:09 Start Date: 10/12/17 Status: Ordered Dulera 200 mcg-5 mcg/inh inhalation aerosol 2 puffs, Inhalation, 2 times a day, # 13 Gm, 11 Refills, Maintenance, 08/12/19 13:23:23 EST, Aerosol, 2 puffs Inhalation 2 times a day Start Date: 08/12/19 Status: Ordered EpiPen 2-Jaspal 0.3 mg injectable kit 0.3 mg, Intramuscular, Once, PRN allergic reaction, dispense only when request it by patient, # 1 each, 3 Refills, Soft Stop, 10/12/17 22:51:13 Start Date: 10/12/17 Status: Ordered fluticasone 50 mcg/inh nasal spray 2 sprays, Nares, Both, Daily, Use every day during allergy season. While using spray keep head down. 30 days not 90 days dispense when patient request it, # 16 Gm, 11 Refills, Maintenance, 10/25/19 11:57:00 EST, [facility] #[id number], dispe... Start Date: 10/25/19 Status: Ordered hydrALAZINE 10 mg oral tablet 10 mg, 1, tablet, By Mouth, 2 times a day, 90 days, # 180 tablet, Refills 3, Tot. Refills 3, Maintenance, 08/30/19 9:25:00 EST, Route to Pharmacy Electronically, [facility] #[id number], 162.5, cm, 07/25/19 9:45:00 EST, Height, 85.9, kg, 07/25/19... Start Date: 08/30/19 Status: Ordered hydrochlorothiazide-lisinopril 25 mg-20 mg oral tablet 1 tablet, By Mouth, Daily, discontinue HCTZ 12.5/lisnopril 20mg, # 90 tablet, 3 Refills, Maintenance, 09/04/19 22:49:00 EST, Tablet, [facility] #[id number], 90 days, 1 tablet By Mouth Daily,Instr:discontinue HCTZ 12.5/lisnopril 20mg, 162.5, cm, 1... Start Date: 09/04/19 Status: Ordered Incruse Ellipta 62.5 mcg/inh inhalation powder = 62.5 mcg, Inhalation, Every 24 hours, doses should be taken at least 24 hours apart discontinue Tudorza, # 30 each, 11 Refills, Maintenance, 08/30/19 9:23:00 EST, [facility] #[id number], 162.5, cm, 07/25/19 9:45:00 EST, Height, 85.9, kg, 07/25... Start Date: 08/30/19 Status: Ordered Lancets See Instructions, # 50 each, Refills 11, Tot. Refills 11, Maintenance, use daily for blood sugar testing once a day Dx DM type 2 Free Style Lite, DM type 2, 08/30/19 9:25:00 EST, Compound, 162.5, cm,07/25/19 9:45:00 EST, Height, 85.9, kg, ... Start Date: 08/30/19 Status: Ordered levothyroxine 0.05 mg oral tablet 1 tablet = 50 mcg, By Mouth, Daily, 90 days supply, # 90 tablet, 3 Refills, Maintenance, 12/01/18 15:22:07 EDT Start Date: 12/01/18 Status: Ordered loratadine 10 mg oral tablet 10 mg, 1, tablet, By Mouth, Daily, PRN, # 90 tablet, Refills 3, Tot. Refills 3, Maintenance, as needed for allergy symptoms, 08/30/19 9:25:00 EST, Route to Pharmacy Electronically, [facility] #[id number], 162.5, cm, 07/25/19 9:45:00 EST, Height,... Start Date: 08/30/19 Status: Ordered metFORMIN 500 mg oral tablet 1 tablet = 500 mg, By Mouth, 2 times a day, discontinue metformin 1000mg, # 180 tablet, 3 Refills, Maintenance, 12/23/18 16:21:02 EDT, Tablet Start Date: 12/23/18 Status: Ordered [id number] medical-grade oxford diabetic shoes, depth or hightop [id number] medical-grade oxford diabetic shoes, depth or hightop, See Instructions, # 1 pair, Refills 0, Tot. 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 Start Date: 04/12/19 Status: Ordered pravastatin 80 mg oral tablet 1 tablet = 80 mg, By Mouth, Daily, 90 days, # 90 tablet, 3 Refills, Maintenance, 08/30/19 9:25:00 EST, Tablet, [facility] #[id number], 162.5, cm, 07/25/19 9:45:00 EST, Height, 85.9, kg, 199:45:00 EST, Dry Weight Start Date: 08/30/19 Status: Ordered Premarin Vaginal 0.625 mg/gm cream with applicator = 0.5 Gm, Vaginally, Every Wednesday and , For the first 2 weeks use daily at bedtime then twice a week at bedtime., # 42.5 Gm, 11 Refills, Maintenance, 01/02/19 12:50:00 EDT, discontinue estradiol 10mcg vaginal, 0.5 Gm Vaginally Every Wednesday a... Start Date: 01/02/19 Status: Ordered PriLOSEC OTC 20 mg oral delayed release tablet 1 tablet = 20 mg, By Mouth, Daily, Take 30 mins before breakfast, # 90 tablet, 3 Refills, Maintenance, 01/02/19 12:52:55 EDT, MD is awared of interaction with citalopram Start Date: 01/02/19 Status: Ordered Remeron 15 mg oral tablet 0.5 tablet = 7.5 mg, By Mouth, Daily at bedtime, # 45 tablet, 3 Refills, Maintenance, 12/01/18 15:22:06 EDT, Tablet Start Date: 12/01/18 Status: Ordered Shoes insert, molded to foot Shoes insert, molded to foot, See Instructions, # 3 pair, Refills 0, Tot. Refills 0, Maintenance, wear every day in both foot Dx DM type 2 with peripheral neuropathy ICD10 E11.40; DMtype 2 pressure callus 11.628, 04/12/19 11:24:50 EDT, Compound Start Date: 04/12/19 Status: Ordered Singulair 10 mg oral tablet 10 mg, 1, tablet, By Mouth, Daily at bedtime, 90 days supply, # 90 tablet, Refills 3, Tot. Refills 3, Maintenance, 06/28/19 7:33:11 EDT, Route to Pharmacy Electronically, [id number], [facility] #[id number] Start Date: 06/28/19 Status: Ordered Sinus rinse Sinus rinse, See Instructions, # 1 each, Refills 0, Tot. Refills 0, Maintenance, Use daily to flusheach nostril, allergic rhinitis, 03/02/18 8:23:36 EDT, Compound Start Date: 03/02/18 Status: Ordered Test Strips See Instructions, # 50 each, Refills 11, Tot. Refills 11, Maintenance, use daily for blood sugar testing once a day Dx DM type 2 Free Style Lite, Diabetes mellitus type 2, 08/30/19 9:25:00 EST, Compound, 162.5, cm, 07/25/19 9:45:00 EST, Height, 85... Start Date: 08/30/19 Status: Ordered Ventolin HFA 108 mcg/inh inhalation aerosol with adapter 2 puffs, Inhalation, 4 times a day, PRN Wheezing/Shortness of Breath, as directed 15 minutes beforeexercise 30 days not 90 days dispense when patient request it, # 8.5 Gm, 5 Refills, Maintenance, 10/25/19 11:57:00 EST, [facility] #[id number]... Start Date: 10/25/19 Status: Ordered Voltaren 1% topical gel = 2 Gm, Topically, 4 times a day, dispense when patient request it, # 100 Gm, 2 Refills, Maintenance, 10/25/19 11:57:00 EST, [facility] #[id number], 2 Gm Topically 4 times a day,x14 days,Instr:dispense when patient request it, 162.5, cm, ... 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/99 Active Gastritis(Confirmed) 3, 4 Active H/O total vaginal hysterectomy(Confirmed) 5 Active Hemithyroidectomy(Confirmed) 6 02/12/97 Active Hypercholesterolemia(Confirmed) Active Hypertension(Confirmed) Active Hypothyroidism(Confirmed) Active Insomnia(Confirmed) Active Menopause(Confirmed) Active Obesity(Confirmed) Active Obstructive sleep apnea(Confirmed) 7 12/27/17 Active OA (osteoarthritis) of knee(Confirmed) Active Osteopenia(Confirmed) 8, 9, 10, 11, 12, 13 08/09/06 Active *[id number]-[facility] Partn isai Carpenter Rossi(Confirmed) Active Prurigo nodularis(Confirmed) 08/17/08 Active Renal insufficiency(Confirmed) Active Non-insulin dependent type 2 diabetes mellitus(Confirmed) 01/24/09 Active Varicose vein(Confirmed) Active Vitamin D deficiency(Confirmed) 07/26/08 Active 1CKD Stage III. 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 [facility] [place] [facility]) 7Mild obstructive sleep apnea per home sleep study on December 27, 2017 8DEXA 06/03/18 AP Spine (L2, L3, L4) -2.1 Osteopenia Femoral Neck (Left) -0.5 Normal Total Hip (Left) 1.2 Normal Total Forearm (Left) -1.0 9Correction of DEXA 02/08/15 AP Spine (L1-L4) -2.1 Osteopenia Femoral Neck (Left) -0.9 Normal Total Hip (Left) 1.2 Normal 10normal DEXA 02/08/15 11DEXA 12/20/12 osteopenia AP spine - ,1.8 normal total hip 0.5 , normal femoral neck-0.7 12DEXA 10/19/08 osteopenia AP lumbar spine - 2.4, normal total proximal femur 0.7, osteopenia femoral neck -1.7 13DEXA 08/09/06 Osteopenia AP lumbar spine -1.6, femoral neck 0, normal proximal femur 0.8 Vital Signs Most recent to oldest [Reference Range]: 1 Height 160.50 cm (07/04/07 11:27 AM) Weight 90.000 kg (07/04/07 11:27 AM) Body Mass Index [18.50-24.99] 34.94 *>HHI* (07/04/07 11:27 AM) Blood Pressure [90-138/55-84 mm Hg] 142/ 86mm Hg *H* (07/04/07 11:27 AM) Blood pressure sites Arm, left (07/04/07 11:27 AM) Social History Social History Type Response Smoking Status Never (less than 100 in lifetime) entered on: 10/26/19 Sex
--- OUTSIDE RECORDS SUMMARY | 2024-07-06 12:01 | XMS_ITS | Continuity of Care Document ---
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 Name Role Phone Marychuy MCCLAIN, Jessica Primary Care Physician Encounter [facility] Date(s): 12/22/23 - 01/21/24 [facility]/[address] [address]- Allergies, Adverse Reactions, Alerts Substance Reaction Severity Status dexamethasone Swelling of throat 10-DEC-2015 19:14:30< $> Persistent Mild Active predniSONE 1 Itchy skin eruption Persistent Severe Act royer tramadol Itch Persistent Mild Active 1Not associated with swelling nor shortness of breath Immunizations Given and Recorded Vaccine Date Status Refusal Reason influenza virus vaccine, inactivated 06/30/23 Brian rded influenza virus vaccine, inactivated 07/28/22 Brian rded influenza virus vaccine, inactivated 06/23/21 Brian rded influenza virus vaccine, inactivated 07/03/20 Brian rded influenza virus vaccine, inactivated 06/24/18 Give n [...] virus vaccine, inactivated 5 07/29/06 Gi javon [id number] 12y+ bivalent booster vax 03/24/23 Given [id number] 12y+ bivalent booster vax 07/28/22 Recorded SARS-CoV-2 mRNA ([id number]) vax 02/17/22 Given SARS-CoV-2 (COVID-19) mRNA BNT-162b2 vac 06/23/21 Recorded SARS-CoV-2 (COVID-19) mRNA BNT-162b2 vac 11/16/20 Given SARS-CoV-2 (COVID-19) mRNA BNT-162b2 vac 10/26/20 Given zoster vaccine, inactivated 06/04/20 Recorded zoster vaccine, inactivated 10/27/19 Recorded tetanus/diphtheria/pertussis, acel(Tdap) 05/21/15 Given pneumococcal 13-valent vaccine [...] crush or chew) (not to exceed 6 tablets/day), # 100 tablet, 11 Refills, Maintenance, 01/19/24 8:32:00 EDT, ER Tablet, [facility] #[id number], Partial fill upon patient request if th... Start Date: 01/19/24 Status: Ordered Albuterol (Eqv-ProAir HFA) 90 mcg/inh inhalation aerosol 2 puffs, Inhalation, Every 6 hours, PRN Wheezing/Shortness of Breath, # 8.5 Gm, 5 Refills, Maintenance, 01/19/24 8:30:00 EDT, [facility] #[id number], If pump is not covered, it can be switched to Ventolin HFA 18 g, 2 puffs Inhalation Every 6 hour... Start Date: 01/19/24 Status: Ordered Alcohol Wipes See Instructions, # 50 each, Refills 11, Tot. Refills 11, Maintenance, use daily for blood sugar testing once a day Dx DM type 2 E11.9, Diabetes mellitus type 2, 01/19/24 9:20:00 EDT, Compound, 165, cm, 01/19/24 7:55:00 EDT, Height, 85.45, kg, 12/12... Start Date: 01/19/24 Status: Ordered budesonide 0.5 mg/2 mL inhalation suspension 2, mL, Inhalation, 2 times a day, # 120 mL, Refills 11, Tot. Refills 11, Maintenance, 01/19/24 8:40:00 EDT, Route to Pharmacy Electronically, [id number], [facility] #[id number], 165, cm, 01/19/24 7:55:00 EDT, Height, 85.... Start Date: 01/19/24 Status: Ordered calcium (as citrate)-vitamin D 315 mg-250 intl units oral tablet 2 tablet, By Mouth, 2 times a day, # 360 tablet, 3 Refills, Maintenance, 03/18/24 10:33:00 EDT, [facility] #[id number], 2 tablet By Mouth 2 times a day,x90 days, 165, cm, 01/19/24 7:55:00 EDT, Height, 85.45, kg, 12/23/23 9:04:00 EDT, Dry Weight Start Date: 03/18/24 Stop Date: 03/13/25 Status: Ordered calcium (as citrate)-vitamin D 315 mg-250 intl units oral tablet 2 tablet, By Mouth, 2 times a day, for 90 days, # 360 tablet, 3 Refills, Hard Stop 03/18/24 10:33:00 EDT, 03/24/23 10:33:00 EDT, [email or web address] #[id number], 160, cm, 03/24/23 10:19:00 EDT, Height, 89.54, kg, 02/09/23 16:45:00 EDT, Dry Weight Start Date: 03/24/23 Stop Date: 03/18/24 Status: Ordered ciclopirox 8% topical solution 1 application, Topically, Daily, as directed to affected area toenails, # 6.6 mL, 11 Refills, Maintenance, 01/19/24 9:20:00 EDT, Solution, [facility] #[id number], ., 1 application Topically Daily,Instr:as directed; to affected area toenails, 165... Start Date: 01/19/24 Status: Ordered Clarinex 5 mg oral tablet 1 tablet = 5 mg, By Mouth, Daily, # 90 tablet, 3 Refills, Maintenance, 03/18/24 10:23:00 EDT, Tablet, [email or web address] #[id number], 165, cm, 01/19/24 7:55:00 EDT, Height, 85.45, kg, 12/23/23 9:04:00 EDT, Dry Weight Start Date: 03/18/24 Stop Date: 03/13/25 Status: Ordered Clarinex 5 mg oral tablet 1 tablet = 5 mg, By Mouth, Daily, for 90 days, # 90 tablet, 3 Refills, Hard Stop 03/18/24 10:23:00 EDT, 03/24/23 10:23:00 EDT, Tablet, [email or web address] #[id number], 160, cm, 03/24/23 10:19:00 EDT, Height, 89.54, kg, 02/09/23 16:45:00 EDT, Dry Weight Start Date: 03/24/23 Stop Date: 03/18/24 Status: Ordered Compression- Lower Extremity (Knee High) See Instructions, # 2 each, Refills 11, Tot. Refills 11, Maintenance, use daily; closed toes; 15-20mmHg. Dx peripheral vascular insufficiency I 87.2, 03/24/23 10:24:00 EDT, Compound Start Date: 03/24/23 Status: Ordered diclofenac 1% topical gel = 2 Gm, Topically, 4 times a day, # 100 Gm, 11 Refills, Maintenance, 01/19/24 8:42:00 EDT, Gel, [facility] #[id number], ., 165, cm, 01/19/24 7:55:00 EDT, Height, 85.45, kg, 12/23/23 9:04:00 EDT,Dry Weight Start Date: 01/19/24 Stop Date: 07/05/24 Status: Ordered Eliquis 5 mg oral tablet 1 tablet, By Mouth, 2 times a day, # 180 tablet, 3 Refills, Maintenance, 01/19/24 9:20:00 EDT, [facility] #[id number], 165, cm, 01/19/24 7:55:00 EDT, Height, 85.45, kg, 12/23/23 9:04:00 EDT, DryWeight Start Date: 01/19/24 Status: Ordered EPINEPHrine 0.3 mg injectable solution = 0.3 mg, Intramuscular, Once, PRN Anaphylactic Reaction, # 1 each, 0 Refills, Soft Stop, 10/22/21 10:11:00 EST, [email or web address] #[id number], 165, cm, 10/22/21 9:05:00 EST, Height, 89.5, kg, 04/23/2121:43:00 EDT, Dry Weight Start Date: 10/22/21 Status: Ordered escitalopram 10 mg oral tablet 1 tablet = 10 mg, By Mouth, Daily, discontinue citalopram, # 30 tablet, 11 Refills, Maintenance, 01/19/24 8:34:00 EDT, Tablet, [email or web address] #[id number], Partial fill upon patient request if the prescription is for a schedule II opioid drug., 165, c... Start Date: 01/19/24 Status: Ordered fluticasone 50 mcg/inh nasal spray 2 sprays, Nares, Both, Daily, Use every day during allergy season. While using spray keep head down., # 3 each, 3 Refills, Maintenance, 03/18/24 10:28:00 EDT, [facility] #[id number], ., 2 spraysNares, Both Daily,x90 days,Instr:Use every day duri... Start Date: 03/18/24 Stop Date: 03/13/25 Status: Ordered formoterol 10 mcg/mL inhalation solution See Instructions, USE 2 ML VIA NEBULIZER TWICE DAILY USING A CONTINUOUS FLOW VIA NEBULIZER, # 120 mL, 11 Refills, Maintenance, 01/19/24 8:40:00 EDT, [facility] #[id number], 165, cm, 01/19/24 7:55:00 EDT, Height, 85.45, kg, 12/23/23 9:04:00 EDT, D... Start Date: 01/19/24 Status: Ordered hydrALAZINE 25 mg oral tablet See Instructions, By mouth 2 tab in 7 AM, 1 tab at1PM and 2 PM at 4PM 90-day supply, # 450 tablet, Refills 3, Tot. Refills 3, Maintenance, 01/19/24 9:19:00 EDT, Instructions Replace Required Details,Route to Pharmacy Electronically, [facility]. Start Date: 01/19/24 Status: Ordered Lancets See Instructions, # 50 each, Refills 11, Tot. Refills 11, Maintenance, use daily for blood sugar testing once a day Dx DM type 2 E11.9 One Touch Delica, DM type 2, 01/19/24 9:20:00 EDT, Compound, 165, cm, 01/19/24 7:55:00 EDT, Height, 85.45, kg, 04... Start Date: 01/19/24 Status: Ordered levothyroxine 0.05 mg oral tablet 1 tablet, By Mouth, Daily, # 90 tablet, 3 Refills, Maintenance, 03/18/24 10:31:00 EDT, [facility] #[id number], 165, cm, 01/19/24 7:55:00 EDT, Height, 85.45, kg, 12/23/23 9:04:00 EDT, Dry Weight Start Date: 03/18/24 Stop Date: 03/13/25 Status: Ordered levothyroxine 0.05 mg oral tablet 1 tablet, By Mouth, Daily, for 90 days, # 90 tablet, 3 Refills, Hard Stop 03/18/24 10:31:00 EDT, 03/24/23 10:31:00 EDT, [facility] #[id number], 160, cm, 03/24/23 10:19:00 EDT, Height, 89.54, kg,02/09/23 16:45:00 EDT, Dry Weight Start Date: 03/24/23 Stop Date: 03/18/24 Status: Ordered lisinopril 40 mg oral tablet 1 tablet = 40 mg, By Mouth, Daily in AM, 11 AM Decreased dose, # 90 tablet, 3 Refills, Maintenance,03/18/24 10:12:00 EDT, Tablet, [email or web address] #[id number], 165, cm, 01/19/24 7:55:00 EDT, Height, 85.45, kg, 12/23/23 9:04:00 EDT, Dry Weight Start Date: 03/18/24 Stop Date: 03/13/25 Status: Ordered lisinopril 40 mg oral tablet 1 tablet = 40 mg, By Mouth, Daily in AM, for 90 days, 11 AM Decreased dose, # 90 tablet, 3 Refills,Hard Stop 03/18/24 10:12:00 EDT, 03/24/23 10:12:00 EDT, Tablet, [email or web address] #[id number], 160, cm, 03/24/23 9:26:00 EDT, Height, 89.54, kg, ... Start Date: 03/24/23 Stop Date: 03/18/24 Status: Ordered Matzim LA 180 mg/24 hours oral tablet, extended release 1 tablet = 180 mg, By Mouth, Daily in AM, Take at 11 AM, # 90 tablet, 3 Refills, Maintenance, 03/18/24 9:58:00 EDT, ER Tablet, [email or web address] #[id number], 165, cm, 01/19/24 7:55:00 EDT, Height, 85.45, kg, 12/23/23 9:04:00 EDT, Dry Weight Start Date: 03/18/24 Stop Date: 03/13/25 Status: Ordered Matzim LA 180 mg/24 hours oral tablet, extended release 1 tablet = 180 mg, By Mouth, Daily in AM, for 90 days, Discontinue diltiazem 360 mg Takes at 11 AM,# 90 tablet, 3 Refills, Hard Stop 03/18/24 9:58:00 EDT, 03/24/23 9:58:00 EDT, ER Tablet, [email or web address] #[id number], 160, cm, 03/24/23 9:26:00 EDT, H... Start Date: 03/24/23 Stop Date: 03/18/24 Status: Ordered MetFORMIN (Eqv-Glucophage XR) 500 mg oral tablet, extended release 1 tablet, By Mouth, 2 times a day with meals, INCREASE DOSE, # 180 tablet, 3 Refills, Maintenance, 12/22/23 16:13:00 EDT, [facility] #[id number], 165, cm, 12/20/23 5:43:00 EDT, Height, 84.5, kg,12/19/23 17:15:00 EDT, Dry Weight Start Date: 12/22/23 Status: Ordered metoprolol 25 mg oral tablet, extended release 25 mg, 1, tablet, By Mouth, Daily, # 30 tablet, Refills 11, Tot. Refills 11, Maintenance, 01/19/24 8:40:00 EDT, Route to Pharmacy Electronically, [email or web address] #[id number], 165, cm, 01/19/24 7:55:00 EDT, Height, 85.45, kg, 12/23/23 9:04:00 EDT, Dry... Start Date: 01/19/24 Status: Ordered mirtazapine 15 mg oral tablet 0.5 tablet, By Mouth, Daily at bedtime, # 45 tablet, 3 Refills, Maintenance, 03/18/24 10:22:00 EDT,[facility] #[id number], 165, cm, 01/19/24 7:55:00 EDT, Height, 85.45, kg, 12/23/23 9:04:00 EDT, Dry Weight Start Date: 03/18/24 Stop Date: 03/13/25 Status: Ordered mirtazapine 15 mg oral tablet 0.5 tablet, By Mouth, Daily at bedtime, for 90 days, # 45 tablet, 3 Refills, Hard Stop 03/18/24 10:22:00 EDT, 03/24/23 10:22:00 EDT, [facility] #[id number], 160, cm, 03/24/23 10:19:00 EDT, Height, 89.54, kg, 02/09/23 16:45:00 EDT, Dry Weight Start Date: 03/24/23 Stop Date: 03/18/24 Status: Ordered montelukast 10 mg oral tablet 1, tablet, By Mouth, Daily at bedtime, SUPPLY., # 90 tablet, Refills 3, Tot. Refills 3, Maintenance, 06/05/23 14:50:00 EDT, Route to Pharmacy Electronically, [facility] #[id number], 160, cm, 03/24/23 10:19:00 EDT, Height, 89.54, kg, 02/09/23 16:4... Start Date: 06/05/23 Status: Ordered Nucala Prefilled Autoinjector 100 mg/mL subcutaneous solution = 100 mg, Subcutaneous Infusion, Every 28 days, j45.40, # 1 each, 11 Refills, Maintenance, 01/12/2414:58:00 EDT, [facility], Partial fill upon patient request if the prescription isfor a schedule II opioid drug., 165, cm, 01/04/24 1... Start Date: 01/13/24 Status: Ordered Lny-gyt-cxhxg medical-grade oxford diabetic shoes, depth or hightop Xri-dgy-otqar medical-grade oxford diabetic shoes, depth or hightop, See Instructions, # 1 each, Refills 0, Tot. 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 Start Date: 03/24/23 Status: Ordered omeprazole 20 mg oral enteric coated capsule 1 capsule = 20 mg, By Mouth, Daily, 30 minutes before breakfast, # 90 capsule, 3 Refills, Maintenance, 03/18/24 10:28:00 EDT, [facility] #[id number], 165, cm, 01/19/24 7:55:00 EDT, Height, 85.45, kg, 12/23/23 9:04:00 EDT, Dry Weight Start Date: 03/18/24 Stop Date: 03/13/25 Status: Ordered omeprazole 20 mg oral enteric coated capsule 1 capsule = 20 mg, By Mouth, Daily, for 90 days, 30 minutes before breakfast MD is aware of interaction with citalopram, # 90 capsule, 3 Refills, Hard Stop 03/18/24 10:28:00 EDT, 03/24/23 10:28:00 EDT, [facility] #[id number], 160, cm, 03/24/23 1... Start Date: 03/24/23 Stop Date: 03/18/24 Status: Ordered pravastatin 80 mg oral tablet 1 tablet, By Mouth, Daily, # 90 tablet, 3 Refills, Maintenance, 03/24/23 10:32:00 EDT, [facility] #[id number], 160, cm, 03/24/23 10:19:00 EDT, Height, 89.54, kg, 02/09/23 16:45:00 EDT, Dry Weight Start Date: 03/24/23 Stop Date: 03/18/24 Status: Ordered Premarin Vaginal 0.625 mg/gm cream with applicator See Instructions, APPLY 1/2 GRAM IN THE VAGINA EVERY WEDNESDAY AND WEDNESDAY, # 30 Gm, 11 Refills, Maintenance, 01/19/24 9:20:00 EDT, [facility] #[id number], 30, APPLY 1/2 GRAM IN THE VAGINA EVERY WEDNESDAY AND WEDNESDAY, 165, cm, 01/19/24 7:55:00 EDT, H... Start Date: 01/19/24 Status: Ordered Shoes insert, molded to foot Shoes insert, molded to foot, See Instructions, # 3 each, Refills 0, Tot. 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 Start Date: 03/24/23 Status: Ordered spironolactone 25 mg oral tablet 25 mg, 1, tablet, By Mouth, Daily in AM, at 11 AM Given by traveling missionary, Dr. Indio Mason, # 30 tablet, Refills 0, Maintenance, 10/16/22 16:24:00 EST Start Date: 10/16/22 Status: Ordered Test Strips See Instructions, # 50 each, Refills 11, Tot. Refills 11, Maintenance, use daily for blood sugar testing once a day Dx DM type 2 E11.9 One Touch Ultra, Diabetes mellitus type 2, 01/19/24 9:19:00 EDT,Compound, 165, cm, 01/19/24 7:55:00 EDT, Height,... 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 Confirmed Active Mixed hyperlipidemia Confirmed Active Obese class I Confirmed Active Obstructive sleep apnea 2 Confirmed 12/27/17 Active OA (osteoarthritis) of knee Confirmed Active Osteopenia 3, 4, 5, 6, 7, 8 Confirmed 08/09/06 Active *[id number] Electronic Specialist Michelle Cain Confirmed Active Varicose vein Confirmed Active 1occlusive deep vein thrombosis in one of the left Peroneal Veins d 2Mild obstructive sleep apnea per home sleep study on December 27, 2017 3DEXA 06/03/18 AP Spine (L2, L3, L4) -2.1 Osteopenia Femoral Neck (Left) -0.5 Normal Total Hip (Left) 1.2 Normal Total Forearm (Left) -1.0 4Correction of DEXA 02/08/15 AP Spine (L1-L4) -2.1 Osteopenia Femoral Neck (Left) -0.9 Normal Total Hip (Left) 1.2 Normal 5normal DEXA 02/08/15 6DEXA 12/20/12 osteopenia AP spine - ,1.8 normal total hip 0.5 , normal femoral neck-0.7 7DEXA 10/19/08 osteopenia AP lumbar spine - 2.4, normal total proximal femur 0.7, osteopenia femoral neck -1.7 8DEXA 08/09/06 Osteopenia AP lumbar spine -1.6, femoral neck 0, normal proximal femur 0.8 Social History Social History Type Response Smoking Status Never (less than 100 in lifetime) entered on: 03/24/23 Sex Patient Care team information Care Team Personnel Name: Carlos PAREDES, Haely Position: [facility] RN Member Role: Primary Care Nurse Name: Jessica Perrin MD Position: [facility] Physician - Primary Care Member Role: PCP Address: Address: [address] [place] [address]- Care Team Related Persons Name: CARLI SANDY Address: [address] [place] [address] Name: COLT BOYCE Address: [address] [place] [address]
--- OUTSIDE RECORDS SUMMARY | 2024-07-06 12:02 | XMS_ITS | Continuity of Care Document ---
Author Organization [facility] Address [address] [place] [address]- Care Team Providers Care Cable Cutter And Swager Name Role Phone Marychuy MCCLAIN, Jessica Primary Care Physician Encounter [facility] Date(s): 06/18/22 - 07/18/22 [facility] [address]- Attending Physician: Admtr, Dominik Allergies, Adverse Reactions, Alerts Substance Reaction Severity [...] and Recorded Vaccine Date Status Refusal Reason SARS-CoV-2 mRNA (owudviz-lpyw-wyvzn) vax 02/17/22 Given influenza virus vaccine, inactivated 06/23/21 Brian rded [...] virus vaccine, inactivated 5 07/29/06 Gi javon SARS-CoV-2 (COVID-19) mRNA BNT-162b2 vac 06/23/21 Recorded [...] 9Admin Note: GIVEN BY NURSE Medications acetaminophen 500 mg oral tablet 2 tablet = 1,000 mg, By Mouth, Every 6 hours, PRN as needed for pain or fever, (not to exceed 3000 mg/day) Discontinue celecoxib 100 mg, # 100 tablet, 11 Refills, Maintenance, 05/13/22 11:27:00 EDT, [facility] #[id number], Partial fill upon cherelle... Start Date: 05/13/22 Status: Ordered albuterol 0.083% inhalation solution 3 mL = 2.5 mg, Inhalation, Every 6 hours, # 25 each, 2 Refills, Maintenance, 05/13/22 11:31:00 EDT,[facility] #[id number], 165, cm, 05/13/22 10:23:00 EDT, Height, 88.9, kg, 02/09/22 15:14:00 EDT, Dry Weight Start Date: 05/13/22 Stop Date: 08/11/22 Status: Ordered budesonide 0.5 mg/2 mL inhalation suspension 0.5 mg, 2, mL, Neb, 2 times a day, # 120 mL, Refills 5, Tot. Refills 5, Maintenance, 02/11/22 14:27:00 EDT, Suspension, Route to Pharmacy Electronically, [id number], [facility] #[id number], 165, cm, 02/09/22 15:14:00 EDT... Start Date: 02/11/22 Status: Ordered calcium (as citrate)-vitamin D 315 mg-250 intl units oral tablet 2 tablet, By Mouth, 2 times a day, # 360 tablet, 0 Refills, [facility] #[id number], 90, TAKE 2TABLETS BY MOUTH TWICE DAILY, 165, cm, 02/23/22 14:24:00 EDT, Height, 88.9, kg, 02/09/22 15:14:00 EDT, Dry Weight Start Date: 04/01/22 Status: Ordered citalopram 20 mg oral tablet 20 mg, 1, tablet, By Mouth, Daily, # 90 tablet, Refills 3, Tot. Refills 3, Maintenance, 07/08/22 14:31:00 EDT, Route to Pharmacy Electronically, [facility] #[id number], is awared of interaction w nicky, 165, cm, 06/18/22 13:19:00 EDT, He... Start Date: 07/08/22 Status: Ordered Clarinex 5 mg oral tablet 1 tablet = 5 mg, By Mouth, Daily, # 90 tablet, 3 Refills, Maintenance, 04/29/22 12:53:00 EDT, Tablet, [facility] #[id number], 165, cm, 02/23/22 14:24:00 EDT, Height, 88.9, kg, 02/09/22 15:14:00 EDT, Dry Weight Start Date: 04/29/22 Status: Ordered Compression- Lower Extremity (Knee High) See Instructions, # 2 each, Refills 11, Tot. Refills 11, Maintenance, use daily; closed toes; 15-20mmHg. Dx peripheral vascular insufficiency I 87.2, 05/22/22 16:57:00 EDT, Compound Start Date: 05/22/22 Status: Ordered EPINEPHrine 0.3 mg injectable solution = 0.3 mg, Intramuscular, Once, PRN Anaphylactic Reaction, # 1 each, 0 Refills, Soft Stop, 10/22/21 10:11:00 EST, [facility] #[id number], 165, cm, 10/22/21 9:05:00 EST, Height, 89.5, kg, 04/23/2121:43:00 EDT, Dry Weight Start Date: 10/22/21 Status: Ordered fluticasone 50 mcg/inh nasal spray See Instructions, SPRAY 2 TIMES IN EACH NOSTRILS EVERY DAY. NEEDED FOR ALLERGY SEASON. WHEN SPRAYING KEEP HEAD DOWN, # 16 Gm, 11 Refills, 02/17/22 13:14:00 EDT, [facility] #[id number], 30, SPRAY 2 TIMES IN EACH NOSTRILS EVERY DAY. NEEDED FO... Start Date: 02/17/22 Status: Ordered formoterol 10 mcg/mL inhalation solution 2 mL = 20 mcg, Inhalation, 2 times a day, using a continuous flow nebulizer, # 60 each, 5 Refills, Maintenance, 02/11/22 14:28:00 EDT, Solution, [facility] #[id number], 165, cm, 02/09/22 15:14:00 EDT, Height, 88.9, kg, 02/09/22 15:14:00 EDT, Dry... Start Date: 02/11/22 Status: Ordered FREESTYLE LANCETS 100 FREESTYLE LANCETS 100, See Instructions, # 100 each, 11 Refills, Maintenance, USE DAILY FOR BLOOD SUGAR TESTING, 06/03/22 16:00:00 EDT, 165, cm, 05/20/22 16:02:00 EDT, Height, 88.9, kg, 02/09/22 15:14:00 EDT, Dry Weight Start Date: 06/03/22 Status: Ordered FREESTYLE LITE BLOOD GLUCSTR 50S FREESTYLE LITE BLOOD GLUCSTR 50S, See Instructions, # 50 Unknown, 11 Refills, Maintenance, USE DAILY FOR BLOOD SUGAR TESTING, 06/03/22 16:00:00 EDT, 165, cm, 05/20/22 16:02:00 EDT, Height, 88.9, kg, 02/09/22 15:14:00 EDT, Dry Weight Start Date: 06/03/22 Status: Ordered hydrALAZINE 25 mg oral tablet 25 mg, 1, tablet, By Mouth, 3 times a day, discontinue hydralazine 10mg, # 90 tablet, Refills 11, Tot. Refills 11, Maintenance, 06/18/22 13:56:00 EDT, Route to Pharmacy Electronically, [facility] #[id number], Partial fill upon patient request if... Start Date: 06/18/22 Status: Ordered hydrochlorothiazide 12.5 mg oral tablet 1 tablet = 12.5 mg, By Mouth, Daily, discontinue HCTZ/lisinopril 25mg /20mg, # 30 tablet, 11 Refills, Maintenance, 10/29/21 13:48:00 EST, Tablet, [facility] #[id number], 165, cm, 10/29/21 12:16:00 EST, Height, 89.5, kg, 04/23/21 21:43:00 EDT, Start Date: 10/29/21 Status: Ordered levothyroxine 0.05 mg oral tablet 1 tablet, By Mouth, Daily, # 90 tablet, 1 Refills, Maintenance, 05/20/22 16:09:00 EDT, [facility] #[id number], 165, cm, 05/20/22 16:02:00 EDT, Height, 88.9, kg, 02/09/22 15:14:00 EDT, Dry Weight Start Date: 05/20/22 Status: Ordered lisinopril 40 mg oral tablet 1 tablet = 40 mg, By Mouth, Daily, discontinue HCTZ/lisinopril 25mg /20mg, # 30 tablet, 11 Refills,Maintenance, 10/29/21 13:47:00 EST, Tablet, [facility] #[id number], Partial fill upon patient request if the prescription is for a schedule II op... Start Date: 10/29/21 Status: Ordered Matzim LA 360 mg/24 hours oral tablet, extended release 1 tablet, By Mouth, Daily, # 90 tablet, 3 Refills, 02/17/22 13:08:00 EDT, [facility] #[id number], 165, cm, 02/17/22 12:49:00 EDT, Height, 88.9, kg, 02/09/22 15:14:00 EDT, Dry Weight Start Date: 02/17/22 Status: Ordered metFORMIN 500 mg oral tablet 1 tablet, By Mouth, 2 times a day, # 180 tablet, 3 Refills, Maintenance, 10/13/21 14:33:00 EST, [facility] #[id number], 165, cm, 04/23/21 21:43:00 EDT, Height, 89.5, kg, 04/23/21 21:43:00 EDT, Dry Weight Start Date: 10/13/21 Status: Ordered mirtazapine 15 mg oral tablet 0.5 tablet, By Mouth, Daily at bedtime, DECREASED DOSE., # 45 tablet, 1 Refills, Maintenance, 05/12/22 9:17:00 EDT, [facility] #[id number], 165, cm, 02/23/22 14:24:00 EDT, Height, 88.9, kg, 02/09/22 15:14:00 EDT, Dry Weight Start Date: 05/12/22 Status: Ordered montelukast 10 mg oral tablet 1, tablet, By Mouth, Daily at bedtime, SUPPLY., # 90 tablet, Refills 1, Maintenance, 06/18/22 14:04:00 EDT, Route to Pharmacy Electronically, [facility] #[id number], 165, cm, 06/18/22 13:19:00 EDT, Height, 88.9, kg, 02/09/22 15:14:00 EDT, Dry Weight Start Date: 06/18/22 Stop Date: 09/16/22 Status: Ordered Wmn-hqu-quuiy medical-grade oxford diabetic shoes, depth or hightop Jcx-jda-kxbcv medical-grade oxford diabetic shoes, depth or hightop, See Instructions, # 1 each, Refills 0, Tot. 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 Start Date: 05/13/22 Status: Ordered omeprazole 20 mg oral enteric coated capsule 1 capsule = 20 mg, By Mouth, Daily, Take 30 mins before breakfast MD is awared of interaction with citalopram, # 30 capsule, 11 Refills, Maintenance, 12/18/21 15:48:00 EDT, EC Capsule, [facility] #[id number], 165, cm, 10/29/21 12:16:00 EST,... Start Date: 12/18/21 Status: Ordered Paxlovid 150 mg-100 mg (150 mg-100 mg Dose) oral tablet See Instructions, Three tablets by mouth BID as per package directions, # 1 pack/packet, 0 Refills,Acute 06/11/23 9:38:00 EDT, 06/10/22 9:37:00 EDT, [facility] #[id number], Partial fill upon patient request if the prescription is for a schedule... Start Date: 06/10/22 Stop Date: 06/11/23 Status: Ordered pravastatin 80 mg oral tablet 1 tablet, By Mouth, Daily, # 90 tablet, 1 Refills, Maintenance, 06/27/22 12:04:00 EDT, [facility] #[id number], 165, cm, 06/18/22 13:19:00 EDT, Height, 88.9, kg, 02/09/22 15:14:00 EDT, Dry Weight Start Date: 06/27/22 Status: Ordered Premarin Vaginal 0.625 mg/gm cream with applicator See Instructions, APPLY 1/2 GRAM IN THE VAGINA EVERY WEDNESDAY AND WEDNESDAY, # 30 Gm, 11 Refills, Maintenance, 05/11/22 14:58:00 EDT, [facility] #[id number], 30, APPLY 1/2 GRAM IN THE VAGINA EVERY WEDNESDAY AND WEDNESDAY, 165, cm, 02/23/22 14:24:00 EDT,... Start Date: 05/11/22 Status: Ordered Shoes insert, molded to foot Shoes insert, molded to foot, See Instructions, # 3 each, Refills 0, Tot. 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 Start Date: 05/13/22 Status: Ordered Voltaren 1% topical gel = 2 Gm, Topically, 4 times a day, # 100 Gm, 5 Refills, Maintenance, 05/13/22 11:27:00 EDT, [facility] #[id number], Partial fill upon patient request if the prescription is for a schedule II opioid drug., 2 Gm Topically 4 times a day,x14 days, 165... Start Date: 05/13/22 Stop Date: 08/05/22 Status: Ordered Problem List Condition Confirmation Course Effective Dates Status H ealth Status Informant Allergic rhinitis Confirmed Active Anxiety disorder Confirmed Active Atrophic vaginitis Confirmed Active Depression Confirmed Active Diabetes mellitus type 2 Confirmed Active Diabetic neuropathy Confirmed Active Diabetic peripheral angiopathy Confirmed 12/25/14 Active Hypertension Confirmed Active Hypothyroidism Confirmed Active Insomnia Confirmed Active Mixed hyperlipidemia Confirmed Active Obese class I Confirmed Active Obstructive sleep apnea 1 Confirmed 12/27/17 Active OA (osteoarthritis) of knee Confirmed Active Osteopenia 2, 3, 4, 5, 6, 7 Confirmed 08/09/06 Active *[phone] International Sourcing Manager Isabel Arellano Confirmed Active Varicose vein Confirmed Active 1Mild obstructive sleep apnea per home sleep study on December 27, 2017 2DEXA 06/03/18 AP Spine (L2, L3, L4) -2.1 Osteopenia Femoral Neck (Left) -0.5 Normal Total Hip (Left) 1.2 Normal Total Forearm (Left) -1.0 3Correction of DEXA 02/08/15 AP Spine (L1-L4) -2.1 Osteopenia Femoral Neck (Left) -0.9 Normal Total Hip (Left) 1.2 Normal 4normal DEXA 02/08/15 5DEXA 12/20/12 osteopenia AP spine - ,1.8 normal total hip 0.5 , normal femoral neck-0.7 6DEXA 10/19/08 osteopenia AP lumbar spine - 2.4, normal total proximal femur 0.7, osteopenia femoral neck -1.7 7DEXA 08/09/06 Osteopenia AP lumbar spine -1.6, femoral [...] (less than 100 in lifetime) entered on: 03/26/21 Sex Patient Care team information Personnel Name: Jessica Perrin MD Address: Address: [address] [place] [address]
--- OUTSIDE RECORDS SUMMARY | 2024-07-06 12:02 | XMS_ITS | Continuity of Care Document ---
Author Organization [facility] Address [address] [place] [id number]- Care Team Providers Care Sales Support Advisor Name Role Phone Jessica Perrin MD Primary Care Physician Encounter [facility] Date(s): 06/08/22 - 07/08/22 [facility] [address] [place] [id number]- [place] Allergies, Adverse Reactions, Alerts Substance Reaction Severity Status dexamethasone Swelling of throat 2 20-NOV-2015 19:14:30<$> Persistent Mild Active methylPREDNISolone Increase blood press ure inmediately after ingesting it w SOB, vomits and dizziness Persistent Moderate Active tramadol Itch Persistent Mild Active predniSONE 1 Itchy skin eruption Persistent Severe Act royer 1Not associated with swelling nor shortness of breath Immunizations Given and Recorded Vaccine Date Status Refusal Reason SARS-CoV-2 mRNA (funzosm-tlal-apmog) vax 02/17/22 Given influenza virus vaccine, inactivated [...] 10/16/09 Gi javon influenza virus vaccine, inactivated 07/26/08 Gi javon influenza virus vaccine, inactivated [...] tablet, 11 Refills, Maintenance, 05/13/22 11:27:00 EDT, [facility] #[id number], Partial fill upon cherelle... Start Date: 05/13/22 Status: Ordered albuterol 0.083% inhalation solution 3 mL = 2.5 mg, Inhalation, Every 6 hours, # 25 each, 2 Refills, Maintenance, 05/13/22 11:31:00 EDT,[facility] #[id number], 165, cm, 05/13/22 10:23:00 EDT, Height, 88.9, kg, 02/09/22 15:14:00 EDT, Dry Weight Start Date: 05/13/22 Stop Date: 08/11/22 Status: Ordered budesonide 0.5 mg/2 mL inhalation suspension 0.5 mg, 2, mL, Neb, 2 times a day, # 120 mL, Refills 5, Tot. Refills 5, Maintenance, 02/11/22 14:27:00 EDT, Suspension, Route to Pharmacy Electronically, [id number], [facility] #[id number], 165, cm, 02/09/22 15:14:00 EDT... Start Date: 02/11/22 Status: Ordered calcium (as citrate)-vitamin D 315 mg-250 intl units oral tablet 2 tablet, By Mouth, 2 times a day, # 360 tablet, 0 Refills, [facility] #[id number], 90, TAKE 2TABLETS BY MOUTH TWICE DAILY, 165, cm, 02/23/22 14:24:00 EDT, Height, 88.9, kg, 02/09/22 15:14:00 EDT, Dry Weight Start Date: 04/01/22 Status: Ordered citalopram 20 mg oral tablet 20 mg, 1, tablet, By Mouth, Daily, # 90 tablet, Refills 3, Tot. Refills 3, Maintenance, 07/08/22 14:31:00 EDT, Route to Pharmacy Electronically, [facility] #[id number], MD is awared of interaction w nicky, 165, cm, 06/18/22 13:19:00 EDT, He... Start Date: 07/08/22 Status: Ordered Clarinex 5 mg oral tablet 1 tablet = 5 mg, By Mouth, Daily, # 90 tablet, 3 Refills, Maintenance, 04/29/22 12:53:00 EDT, Tablet, [facility] #[id number], 165, cm, 02/23/22 14:24:00 EDT, Height, 88.9, [...] 0 Refills, Soft Stop, 10/22/21 10:11:00 EST, [facility] #[id number], 165, cm, 10/22/21 9:05:00 EST, Height, 89.5, kg, 04/23/2121:43:00 EDT, Dry Weight Start Date: 10/22/21 Status: Ordered fluticasone 50 mcg/inh nasal spray See Instructions, SPRAY 2 TIMES IN EACH NOSTRILS EVERY DAY. NEEDED FOR ALLERGY SEASON. WHEN SPRAYING KEEP HEAD DOWN, # 16 Gm, 11 Refills, 02/17/22 13:14:00 EDT, [facility] #[id number], 30, SPRAY 2 TIMES IN EACH NOSTRILS EVERY DAY. NEEDED FO... Start Date: 02/17/22 Status: Ordered formoterol 10 mcg/mL inhalation solution 2 mL = 20 mcg, Inhalation, 2 times a day, using a continuous flow nebulizer, # 60 each, 5 Refills, Maintenance, 02/11/22 14:28:00 EDT, Solution, [facility] #[id number], 165, cm, 02/09/22 15:14:00 EDT, Height, 88.9, [...] 06/18/22 13:56:00 EDT, Route to Pharmacy Electronically, [facility] #[id number], Partial fill upon patient request if... Start Date: 06/18/22 Status: Ordered hydrochlorothiazide 12.5 mg oral tablet 1 tablet = 12.5 mg, By Mouth, Daily, discontinue HCTZ/lisinopril 25mg /20mg, # 30 tablet, 11 Refills, Maintenance, 10/29/21 13:48:00 EST, Tablet, [facility] #[id number], 165, cm, 10/29/21 12:16:00 EST, Height, 89.5, kg, 04/23/21 21:43:00 EDT, [facility] Start Date: 10/29/21 Status: Ordered levothyroxine 0.05 mg oral tablet 1 tablet, By Mouth, Daily, # 90 tablet, 1 Refills, Maintenance, 05/20/22 16:09:00 EDT, [facility] #[id number], 165, cm, 05/20/22 16:02:00 EDT, Height, 88.9, kg, 02/09/22 15:14:00 EDT, Dry Weight Start Date: 05/20/22 Status: Ordered lisinopril 40 mg oral tablet 1 tablet = 40 mg, By Mouth, Daily, discontinue HCTZ/lisinopril 25mg /20mg, # 30 tablet, 11 Refills,Maintenance, 10/29/21 13:47:00 EST, Tablet, [facility] #[id number], Partial fill upon patient request if the prescription is for a schedule II op... Start Date: 10/29/21 Status: Ordered Matzim LA 360 mg/24 hours oral tablet, extended release 1 tablet, By Mouth, Daily, # 90 tablet, 3 Refills, 02/17/22 13:08:00 EDT, [facility] #[id number], 165, cm, 02/17/22 12:49:00 EDT, Height, 88.9, kg, 02/09/22 15:14:00 EDT, Dry Weight Start Date: 02/17/22 Status: Ordered metFORMIN 500 mg oral tablet 1 tablet, By Mouth, 2 times a day, # 180 tablet, 3 Refills, Maintenance, 10/13/21 14:33:00 EST, [id number], 165, cm, 04/23/21 21:43:00 EDT, Height, 89.5, kg, 04/23/21 21:43:00 EDT, Dry Weight Start Date: 10/13/21 Status: Ordered mirtazapine 15 mg oral tablet 0.5 tablet, By Mouth, Daily at bedtime, DECREASED DOSE., # 45 tablet, 1 Refills, Maintenance, 05/12/22 9:17:00 EDT, [id number], 165, cm, 02/23/22 14:24:00 EDT, Height, 88.9, kg, 02/09/22 15:14:00 EDT, Dry Weight Start Date: 05/12/22 Status: Ordered montelukast 10 mg oral tablet 1, tablet, By Mouth, Daily at bedtime, SUPPLY., # 90 tablet, Refills 1, Maintenance, 06/18/22 14:04:00 EDT, [id number], 165, cm, 06/18/22 13:19:00 EDT, Height, 88.9, kg, 02/09/22 15:14:00 EDT, Dry Weight Start Date: 06/18/22 Stop Date: 09/16/22 Status: Ordered Dco-shy-iijbl medical-grade oxford diabetic shoes, depth or hightop Ptu-yod-hngxd medical-grade oxford diabetic shoes, depth or hightop, [...] Refills, Maintenance, 12/18/21 15:48:00 EDT, EC Capsule, [facility] #[id number], 165, cm, 10/29/21 12:16:00 EST,... Start Date: 12/18/21 Status: Ordered Paxlovid 150 mg-100 mg (150 mg-100 mg Dose) oral tablet See Instructions, Three tablets by mouth BID as per package directions, # 1 pack/packet, 0 Refills,Acute 06/11/23 9:38:00 EDT, 06/10/22 9:37:00 EDT, [facility] #[id number], Partial fill upon patient request if the prescription is for a schedule... Start Date: 06/10/22 Stop Date: 06/11/23 Status: Ordered pravastatin 80 mg oral tablet 1 tablet, By Mouth, Daily, # 90 tablet, 1 Refills, Maintenance, 06/27/22 12:04:00 EDT, [facility] #[id number], 165, cm, 06/18/22 13:19:00 EDT, Height, 88.9, kg, 02/09/22 15:14:00 EDT, Dry Weight Start Date: 06/27/22 Status: Ordered Premarin Vaginal 0.625 mg/gm cream with applicator See Instructions, APPLY 1/2 GRAM IN THE VAGINA EVERY WEDNESDAY AND WEDNESDAY, # 30 Gm, 11 Refills, Maintenance, 05/11/22 14:58:00 EDT, [facility] #[id number], 30, APPLY 1/2 GRAM IN THE VAGINA [...] Gm, 5 Refills, Maintenance, 05/13/22 11:27:00 EDT, [facility] #[id number], Partial fill upon patient request if the [...] 4, 5, 6, 7 Confirmed 08/09/06 Active [phone] Patient Relations Coordinator Yee Ceballos Confirmed Active Varicose vein Confirmed Active 1Mild [...] Personnel Name: Jessica Perrin MD Address: Address: [address] [place] [id number]
--- OUTSIDE RECORDS SUMMARY | 2024-07-06 12:02 | XMS_ITS | Continuity of Care Document ---
Author Organization [facility] Address [address] [place] [address]- Care Team Providers Care Ambulance Mechanic Name Role Phone Marychuy MCCLAIN, Jessica Primary Care Physician Encounter [facility] Date(s): 12/30/22 - 01/29/23 [facility]/[place] [address]- [place] Allergies, Adverse Reactions, Alerts Substance Reaction [...] Vaccine Date Status Refusal Reason SARS-CoV-2 mRNA ([id number]) vax 02/17/22 Given influenza virus vaccine, inactivated [...] tablet, 11 Refills, Maintenance, 05/13/22 11:27:00 EDT, [facility] #[id number], Partial fill upon cherelle... Start Date: 05/13/22 Status: Ordered albuterol 0.083% inhalation solution 3 mL = 2.5 mg, Inhalation, Every 6 hours, # 25 each, 5 Refills, Maintenance, 08/12/22 15:02:00 EST,[facility] #[id number], 165, cm, 06/18/22 13:19:00 EDT, Height, 88.9, kg, 02/09/22 15:14:00 EDT, Dry Weight Start Date: 08/12/22 Stop Date: 02/08/23 Status: Ordered apixaban 5 mg oral tablet 1 tablet = 5 mg, By Mouth, 2 times a day, # 180 tablet, 0 Refills, Maintenance, 12/16/22 16:34:00 EDT, Tablet, [facility] #[id number], Partial fill upon patient request if the prescription is for a schedule II opioid drug., 163, cm, 12/16/22 7:58... Start Date: 12/16/22 Stop Date: 03/16/23 Status: Ordered budesonide 0.5 mg/2 mL inhalation suspension 0.5 mg, 2, mL, Neb, 2 times a day, # 120 mL, Refills 11, Tot. Refills 11, Maintenance, 10/16/22 16:58:00 EST, Suspension, Route to Pharmacy Electronically, [id number], [facility] #[id number], 163, cm, 10/16/22 16:21:00 E... Start Date: 10/16/22 Status: Ordered budesonide 0.5 mg/2 mL inhalation suspension 0.5 mg, 2, mL, Neb, 2 times a day, # 120 mL, Refills 11, Tot. Refills 11, Maintenance, 08/13/22 15:24:00 EST, Suspension, Route to Pharmacy Electronically, [id number], [facility] #[id number], 165, cm, 06/18/22 13:19:00 E... Start Date: 08/13/22 Status: Ordered calcium (as citrate)-vitamin D 315 mg-250 intl units oral tablet 2 tablet, By Mouth, 2 times a day, # 360 tablet, 0 Refills, Maintenance, 12/07/22 14:46:00 EDT, [facility] #[id number], 90, 2 tablet By Mouth 2 times a day, 163, cm, 11/05/22 16:59:00 EST, Height, 90, kg, 11/05/22 16:59:00 EST, Dry Weight Start Date: 12/07/22 Status: Ordered citalopram 20 mg oral tablet 20 mg, 1, tablet, By Mouth, Daily, # 90 tablet, Refills 3, Tot. Refills 3, Maintenance, 07/08/22 14:31:00 EDT, Route to Pharmacy Electronically, [facility] #[id number], MD is awared of interaction w nicky, 165, cm, 06/18/22 13:19:00 EDT, He... Start Date: 07/08/22 Status: Ordered Clarinex 5 mg oral tablet 1 tablet = 5 mg, By Mouth, Daily, # 90 tablet, 3 Refills, Maintenance, 04/29/22 12:53:00 EDT, Tablet, [facility] #[id number], 165, cm, 02/23/22 14:24:00 EDT, Height, 88.9, [...] 0 Refills, Soft Stop, 10/22/21 10:11:00 EST, [facility] #[id number], 165, cm, 10/22/21 9:05:00 EST, Height, 89.5, kg, 04/23/2121:43:00 EDT, Dry Weight Start Date: 10/22/21 Status: Ordered fluticasone 50 mcg/inh nasal spray See Instructions, SPRAY 2 TIMES IN EACH NOSTRILS EVERY DAY. NEEDED FOR ALLERGY SEASON. WHEN SPRAYING KEEP HEAD DOWN, # 16 Gm, 11 Refills, 02/17/22 13:14:00 EDT, [facility] #[id number], 30, SPRAY 2 TIMES IN EACH NOSTRILS EVERY DAY. NEEDED FO... Start Date: 02/17/22 Status: Ordered formoterol 10 mcg/mL inhalation solution 2 mL = 20 mcg, Inhalation, 2 times a day, using a continuous flow nebulizer, # 120 mL, 11 Refills, Maintenance, 10/16/22 16:58:00 EST, Solution, [facility] #[id number], Partial fill upon patientrequest if the prescription is for a schedule II op... Start Date: 10/16/22 Stop Date: 10/11/23 Status: Ordered formoterol 10 mcg/mL inhalation solution 2 mL = 20 mcg, Inhalation, 2 times a day, using a continuous flow nebulizer, # 60 each, 11 Refills,Maintenance, 08/13/22 13:24:00 EST, Solution Start Date: 08/13/22 Status: Ordered FREESTYLE LANCETS 100 FREESTYLE LANCETS [...] Dry Weight Start Date: 06/03/22 Status: Ordered furosemide 20 mg oral tablet 20 mg, 1, tablet, By Mouth, Daily, # 5 tablet, Refills 0, Tot. Refills 0, Maintenance, 11/05/22 17:53:00 EST, Route to Pharmacy Electronically, [facility] #[id number], Partial fill upon patient request if the prescription is for a schedule II opi... Start Date: 11/05/22 Stop Date: 11/10/22 Status: Ordered gabapentin 300 mg oral capsule 300 mg, 1, capsule, By Mouth, 2 times a day, PRN, # 20 capsule, Refills 0, Tot. Refills 0, Maintenance, Pain , Severe, 11/05/22 17:53:00 EST, Route to Pharmacy Electronically, [facility] #[id number], Partial fill upon patient request if the presc... Start Date: 11/05/22 Stop Date: 11/15/22 Status: Ordered hydrALAZINE 25 mg oral tablet 25 mg, 1, tablet, By Mouth, 3 times a day, discontinue hydralazine 10mg, # 90 tablet, Refills 11, Tot. Refills 11, Maintenance, 06/18/22 13:56:00 EDT, Route to Pharmacy Electronically, [facility] #[id number], Partial fill upon patient request if... Start Date: 06/18/22 Status: Ordered hydrALAZINE 50 mg oral tablet 1 tablet = 50 mg, By Mouth, 2 times a day, # 60 tablet, 0 Refills, Maintenance, 10/16/22 16:25:00 EST, Tablet, Partial fill upon patient request if the prescription is for a schedule II opioid drug. Start Date: 10/16/22 Status: Ordered levothyroxine 0.05 mg oral tablet 1 tablet, By Mouth, Daily, # 30 tablet, 11 Refills, Maintenance, 09/30/22 12:56:00 EST, [facility] #[id number], 163, cm, 09/30/22 11:48:00 EST, Height, 92.8, kg, 09/24/22 22:19:00 EST, Dry Weight Start Date: 09/30/22 Status: Ordered lisinopril 40 mg oral tablet 1 tablet = 40 mg, By Mouth, 2 times a day, increase dose discontinue HCTZ 12.5mg, # 60 tablet, 11 Refills, Maintenance, 09/30/22 12:54:00 EST, Tablet, [facility] #[id number], 163, cm, 09/30/22 11:48:00 EST, Height, 92.8, kg, 09/24/22 22:19:00... Start Date: 09/30/22 Stop Date: 09/25/23 Status: Ordered Matzim LA 360 mg/24 hours oral tablet, extended release 1 tablet, By Mouth, Daily, # 90 tablet, 3 Refills, 02/17/22 13:08:00 EDT, [facility] #[id number], 165, cm, 02/17/22 12:49:00 EDT, Height, 88.9, kg, 02/09/22 15:14:00 EDT, Dry Weight Start Date: 02/17/22 Status: Ordered metFORMIN 500 mg oral tablet, extended release 1 tablet = 500 mg, By Mouth, Daily in AM, discontinue metformin 500mg with meal, # 30 tablet, 11 Refills, Maintenance, 09/30/22 12:51:00 EST, ER Tablet, [facility] #[id number], 163, cm, 09/30/2310:48:00 EST, Height, 92.8, kg, 09/24/22 22:1... Start Date: 09/30/22 Status: Ordered mirtazapine 15 mg oral tablet 0.5 tablet, By Mouth, Daily at bedtime, DECREASED DOSE, # 45 tablet, 1 Refills, Maintenance, 10/20/22 20:06:00 EST, [facility] #[id number], 163, cm, 10/16/22 16:21:00 EST, Height, 92.8, kg, 09/24/22 22:19:00 EST, Dry Weight Start Date: 10/20/22 Status: Ordered montelukast 10 mg oral tablet 1, tablet, By Mouth, Daily at bedtime, SUPPLY., # 90 tablet, Refills 1, Tot. Refills 1, Maintenance, 12/07/22 14:50:00 EDT, Route to Pharmacy Electronically, [facility] #[id number], 163, cm, 11/05/22 16:59:00 EST, Height, 90, kg, 11/05/22 16:59:0... Start Date: 12/07/22 Stop Date: 06/05/23 Status: Ordered Ipc-hpb-whjle medical-grade oxford diabetic shoes, depth or hightop Ljd-bvi-frktz medical-grade oxford diabetic shoes, depth or hightop, [...] of interaction with citalopram, # 30 capsule, 2 Refills, Maintenance, 12/07/22 14:49:00 EDT, EC Capsule, [facility] #[id number], 163, cm, 11/05/22 16:59:00 EST,... Start Date: 12/07/22 Status: Ordered pravastatin 80 mg oral tablet 1 tablet, By Mouth, Daily, # 90 tablet, 1 Refills, Maintenance, 12/07/22 14:47:00 EDT, [facility] #[id number], 163, cm, 11/05/22 16:59:00 EST, Height, 90, kg, 11/05/22 16:59:00 EST, Dry Weight Start Date: 12/07/22 Status: Ordered Premarin Vaginal 0.625 mg/gm cream with applicator See Instructions, APPLY 1/2 GRAM IN THE VAGINA EVERY WEDNESDAY AND WEDNESDAY, # 30 Gm, 11 Refills, Maintenance, 05/11/22 14:58:00 EDT, [facility] #[id number], 30, APPLY 1/2 GRAM IN THE VAGINA EVERY WEDNESDAY AND WEDNESDAY, 165, cm, 02/23/22 14:24:00 EDT,... Start Date: 05/11/22 Status: Ordered ProAir HFA 90 mcg/inh inhalation aerosol with adapter 2, puffs, Inhalation, 4 times a day, PRN, # 1 each, Refills 11, Tot. Refills 11, Maintenance, 10/16/22 17:00:00 EST, Route to Pharmacy Electronically, [id number], [facility] #[id number], 163, cm, 10/16/22 16:21:00 EST, H... Start Date: 10/16/22 Status: Ordered Shoes insert, molded to foot Shoes insert, molded to foot, See Instructions, # 3 each, Refills 0, Tot. 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 Start Date: 05/13/22 Status: Ordered spironolactone 25 mg oral tablet 25 mg, 1, tablet, By Mouth, Daily, # 30 tablet, Refills 0, Maintenance, 10/16/22 16:24:00 EST, Partial fill upon patient request if the prescription is for a schedule II opioid drug. Start Date: 10/16/22 Status: Ordered triamcinolone 0.025% topical cream 1 application, Topically, 3 times a day, PRN itching Apply to lower extremities Indian, # 30 Gm, 0Refills, Maintenance, 01/07/23 14:27:00 EDT, [facility], Partial fill upon patient request if the prescription is for a schedul... Start Date: 01/07/23 Status: Ordered Problem List Condition Confirmation Course Effective Dates Status H ealth Status Informant Allergic rhinitis Confirmed Active Anxiety disorder Confirmed Active Atrophic vaginitis Confirmed Active Depression Confirmed Active Diabetes mellitus type 2 Confirmed Active Diabetic neuropathy Confirmed Active Diabetic peripheral angiopathy Confirmed 12/25/14 Active Hypertension Confirmed Active Hypothyroidism Confirmed Active Insomnia Confirmed Active Mixed hyperlipidemia Confirmed Active Obstructive sleep apnea 1 Confirmed 12/27/17 Active OA (osteoarthritis) of knee Confirmed Active Osteopenia 2, 3, 4, 5, 6, 7 Confirmed 08/09/06 Active *[id number] Expressive Therapist Francis Malinarnacion Confirmed Active Severe obesity (BMI 35.0-39.9) with comorbidity Confirmed Active Varicose vein Confirmed Active 1Mild [...] on: 03/26/21 Sex Patient Care team information Care Team Personnel Name: Carlos RN, Haley Position: [facility] RN Member Role: Primary Care Nurse Name: Marychuy MCCLAIN, Jessica Position: [facility] Primary Care Physician Member Role: PCP Address: Address: [address] [place] [address]- Care Team Related Persons Name: SANDY BOYCE Address: home [address] [place] [address] Name: COLT BOYCE Address: home [address] [place] [address]
--- OUTSIDE RECORDS SUMMARY | 2024-07-06 12:02 | XMS_ITS | Continuity of Care Document ---
Author Organization [facility] Address [address] [place] [address]- Care Team Providers Care Rn Obgyn Name Role Phone Marychuy MCCLAIN, Jessica Primary Care Physician Encounter [facility] Date(s): 06/02/22 - 07/08/[address] [address]- Attending Physician: Jessica Perrin MD Admitting Physician: Jessica Perrin MD Referring Physician: Jessica Perrin MD Allergies, Adverse Reactions, Alerts Substance Reaction Severity [...] Vaccine Date Status Refusal Reason SARS-CoV-2 mRNA (gxujffj-[id number]) vax 02/17/22 Given influenza virus vaccine, inactivated [...] tablet, 11 Refills, Maintenance, 05/13/22 11:27:00 EDT, [facility] #[id number], Partial fill upon cherelle... Start Date: 05/13/22 Status: Ordered albuterol 0.083% inhalation solution 3 mL = 2.5 mg, Inhalation, Every 6 hours, # 25 each, 2 Refills, Maintenance, 05/13/22 11:31:00 EDT,[facility] #[id number], 165, cm, 05/13/22 10:23:00 EDT, Height, 88.9, kg, 02/09/22 15:14:00 EDT, Dry Weight Start Date: 05/13/22 Stop Date: 08/11/22 Status: Ordered budesonide 0.5 mg/2 mL inhalation suspension 0.5 mg, 2, mL, Neb, 2 times a day, # 120 mL, Refills 5, Tot. Refills 5, Maintenance, 02/11/22 14:27:00 EDT, Suspension, Route to Pharmacy Electronically, [id number], [facility] #[id number], 165, cm, 02/09/22 15:14:00 EDT... Start Date: 02/11/22 Status: Ordered calcium (as citrate)-vitamin D 315 mg-250 intl units oral tablet 2 tablet, By Mouth, 2 times a day, # 360 tablet, 0 Refills, [facility] #[id number], 90, TAKE 2TABLETS BY MOUTH TWICE DAILY, 165, cm, 02/23/22 14:24:00 EDT, Height, 88.9, kg, 02/09/22 15:14:00 EDT, Dry Weight Start Date: 04/01/22 Status: Ordered citalopram 20 mg oral tablet 20 mg, 1, tablet, By Mouth, Daily, # 90 tablet, Refills 3, Tot. Refills 3, Maintenance, 07/08/22 14:31:00 EDT, Route to Pharmacy Electronically, [facility] #[id number], is awared of interaction w nicky, 165, cm, 06/18/22 13:19:00 EDT, He... Start Date: 07/08/22 Status: Ordered Clarinex 5 mg oral tablet 1 tablet = 5 mg, By Mouth, Daily, # 90 tablet, 3 Refills, Maintenance, 04/29/22 12:53:00 EDT, Tablet, [facility] #[id number], 165, cm, 02/23/22 14:24:00 EDT, Height, 88.9, [...] 0 Refills, Soft Stop, 10/22/21 10:11:00 EST, [facility] #[id number], 165, cm, 10/22/21 9:05:00 EST, Height, 89.5, kg, 04/23/2121:43:00 EDT, Dry Weight Start Date: 10/22/21 Status: Ordered fluticasone 50 mcg/inh nasal spray See Instructions, SPRAY 2 TIMES IN EACH NOSTRILS EVERY DAY. NEEDED FOR ALLERGY SEASON. WHEN SPRAYING KEEP HEAD DOWN, # 16 Gm, 11 Refills, 02/17/22 13:14:00 EDT, [facility] #[id number], 30, SPRAY 2 TIMES IN EACH NOSTRILS EVERY DAY. NEEDED FO... Start Date: 02/17/22 Status: Ordered formoterol 10 mcg/mL inhalation solution 2 mL = 20 mcg, Inhalation, 2 times a day, using a continuous flow nebulizer, # 60 each, 5 Refills, Maintenance, 02/11/22 14:28:00 EDT, Solution, [facility] #[id number], 165, cm, 02/09/22 15:14:00 EDT, Height, 88.9, [...] 06/18/22 13:56:00 EDT, Route to Pharmacy Electronically, [id number], Partial fill upon patient request if... Start Date: 06/18/22 Status: Ordered hydrochlorothiazide 12.5 mg oral tablet 1 tablet = 12.5 mg, By Mouth, Daily, discontinue HCTZ/lisinopril 25mg /20mg, # 30 tablet, 11 Refills, Maintenance, 10/29/21 13:48:00 EST, Tablet, [facility] #[id number], 165, cm, 10/29/21 12:16:00 EST, Height, 89.5, kg, 04/23/21 21:43:00 EDT, . Start Date: 10/29/21 Status: Ordered levothyroxine 0.05 mg oral tablet 1 tablet, By Mouth, Daily, # 90 tablet, 1 Refills, Maintenance, 05/20/22 16:09:00 EDT, [facility] #[id number], 165, cm, 05/20/22 16:02:00 EDT, Height, 88.9, kg, 02/09/22 15:14:00 EDT, Dry Weight Start Date: 05/20/22 Status: Ordered lisinopril 40 mg oral tablet 1 tablet = 40 mg, By Mouth, Daily, discontinue HCTZ/lisinopril 25mg /20mg, # 30 tablet, 11 Refills,Maintenance, 10/29/21 13:47:00 EST, Tablet, [facility] #[id number], Partial fill upon patient request if the prescription is for a schedule II op... Start Date: 10/29/21 Status: Ordered Matzim LA 360 mg/24 hours oral tablet, extended release 1 tablet, By Mouth, Daily, # 90 tablet, 3 Refills, 02/17/22 13:08:00 EDT, [facility] #[id number], 165, cm, 02/17/22 12:49:00 EDT, Height, 88.9, kg, 02/09/22 15:14:00 EDT, Dry Weight Start Date: 02/17/22 Status: Ordered metFORMIN 500 mg oral tablet 1 tablet, By Mouth, 2 times a day, # 180 tablet, 3 Refills, Maintenance, 10/13/21 14:33:00 EST, [facility] #[id number], 165, cm, 04/23/21 21:43:00 EDT, Height, 89.5, kg, 04/23/21 21:43:00 EDT, Dry Weight Start Date: 10/13/21 Status: Ordered mirtazapine 15 mg oral tablet 0.5 tablet, By Mouth, Daily at bedtime, DECREASED DOSE., # 45 tablet, 1 Refills, Maintenance, 05/12/22 9:17:00 EDT, [facility] #[id number], 165, cm, 02/23/22 14:24:00 EDT, Height, 88.9, kg, 02/09/22 15:14:00 EDT, Dry Weight Start Date: 05/12/22 Status: Ordered montelukast 10 mg oral tablet 1, tablet, By Mouth, Daily at bedtime, SUPPLY., # 90 tablet, Refills 1, Maintenance, 06/18/22 14:04:00 EDT, Route to Pharmacy Electronically, [facility] #[id number], 165, cm, 06/18/22 13:19:00 EDT, Height, 88.9, kg, 02/09/22 15:14:00 EDT, Dry Weight Start Date: 06/18/22 Stop Date: 09/16/22 Status: Ordered Wxx-lmy-otusu medical-grade oxford diabetic shoes, depth or hightop Vxh-zun-rdcgn medical-grade oxford diabetic shoes, depth or hightop, [...] Refills, Maintenance, 12/18/21 15:48:00 EDT, EC Capsule, [facility][id number], 165, cm, 10/29/21 12:16:00 EST,... Start Date: 12/18/21 Status: Ordered Paxlovid 150 mg-100 mg (150 mg-100 mg Dose) oral tablet See Instructions, Three tablets by mouth BID as per package directions, # 1 pack/packet, 0 Refills,Acute 06/11/23 9:38:00 EDT, 06/10/22 9:37:00 EDT, [facility] #[id number], Partial fill upon patient request if the prescription is for a schedule... Start Date: 06/10/22 Stop Date: 06/11/23 Status: Ordered pravastatin 80 mg oral tablet 1 tablet, By Mouth, Daily, # 90 tablet, 1 Refills, Maintenance, 06/27/22 12:04:00 EDT, [facility] #[id number], 165, cm, 06/18/22 13:19:00 EDT, Height, 88.9, kg, 02/09/22 15:14:00 EDT, Dry Weight Start Date: 06/27/22 Status: Ordered Premarin Vaginal 0.625 mg/gm cream with applicator See Instructions, APPLY 1/2 GRAM IN THE VAGINA EVERY WEDNESDAY AND WEDNESDAY, # 30 Gm, 11 Refills, Maintenance, 05/11/22 14:58:00 EDT, [facility] #[id number], 30, APPLY 1/2 GRAM IN THE VAGINA [...] Gm, 5 Refills, Maintenance, 05/13/22 11:27:00 EDT, [facility] #[id number], Partial fill upon patient request if the [...] 4, 5, 6, 7 Confirmed 08/09/06 Active [id number] Chief School Finance Officer Yee Ceballos Confirmed Active Varicose vein Confirmed [...] Personnel Name: Jessica Perrin MD Address: Address: [address] [place] [address]
--- OUTSIDE RECORDS SUMMARY | 2024-07-06 12:02 | XMS_ITS | Continuity of Care Document ---
Author Organization [facility] Address [address] [place] [address]- Care Team Providers Care Damaged Freight Inspector Name Role Phone Marychuy MCCLAIN, Jessica Primary Care Physician Encounter [facility] Date(s): 09/25/22 - 10/29/22 [facility] [address]- Attending Physician: Not on Staff, Attending MD Allergies, Adverse Reactions, Alerts Substance Reaction [...] Vaccine Date Status Refusal Reason SARS-CoV-2 mRNA ([id number]) vax 02/17/22 Given influenza virus vaccine, inactivated [...] tablet, 11 Refills, Maintenance, 05/13/22 11:27:00 EDT, [facility] #[id number], Partial fill upon cherelle... Start Date: 05/13/22 Status: Ordered albuterol 0.083% inhalation solution 3 mL = 2.5 mg, Inhalation, Every 6 hours, # 25 each, 5 Refills, Maintenance, 08/12/22 15:02:00 EST,[facility] #[id number], 165, cm, 06/18/22 13:19:00 EDT, Height, 88.9, kg, 02/09/22 15:14:00 EDT, Dry Weight Start Date: 08/12/22 Stop Date: 02/08/23 Status: Ordered budesonide 0.5 mg/2 mL inhalation suspension 0.5 mg, 2, mL, Neb, 2 times a day, # 120 mL, Refills 11, Tot. Refills 11, Maintenance, 10/16/22 16:58:00 EST, Suspension, Route to Pharmacy Electronically, [id number], [facility] #[id number], 163, cm, 10/16/22 16:21:00 E... Start Date: 10/16/22 Status: Ordered budesonide 0.5 mg/2 mL inhalation suspension 0.5 mg, 2, mL, Neb, 2 times a day, # 120 mL, Refills 11, Tot. Refills 11, Maintenance, 08/13/22 15:24:00 EST, Suspension, Route to Pharmacy Electronically, [id number], [facility] #[id number], 165, cm, 06/18/22 13:19:00 E... Start Date: 08/13/22 Status: Ordered calcium (as citrate)-vitamin D 315 mg-250 intl units oral tablet 2 tablet, By Mouth, 2 times a day, # 360 tablet, 0 Refills, Maintenance, 09/11/22 8:59:00 EST, [facility] #[id number], 90, TAKE 2 TABLETS BY MOUTH TWICE DAILY, 165, cm, 06/18/22 13:19:00 EDT, Height, 88.9, kg, 02/09/22 15:14:00 EDT, Dry Weight Start Date: 09/11/22 Status: Ordered citalopram 20 mg oral tablet 20 mg, 1, tablet, By Mouth, Daily, # 90 tablet, Refills 3, Tot. Refills 3, Maintenance, 07/08/22 14:31:00 EDT, Route to Pharmacy Electronically, [facility] #[id number], is awared of interaction w rosaseshelli, 165, cm, 06/18/22 13:19:00 EDT, He... Start Date: 07/08/22 Status: Ordered Clarinex 5 mg oral tablet 1 tablet = 5 mg, By Mouth, Daily, # 90 tablet, 3 Refills, Maintenance, 04/29/22 12:53:00 EDT, Tablet, [facility] #[id number], 165, cm, 02/23/22 14:24:00 EDT, Height, 88.9, [...] 0 Refills, Soft Stop, 10/22/21 10:11:00 EST, [facility] #[id number], 165, cm, 10/22/21 9:05:00 EST, Height, 89.5, kg, 04/23/2121:43:00 EDT, Dry Weight Start Date: 10/22/21 Status: Ordered fluticasone 50 mcg/inh nasal spray See Instructions, SPRAY 2 TIMES IN EACH NOSTRILS EVERY DAY. NEEDED FOR ALLERGY SEASON. WHEN SPRAYING KEEP HEAD DOWN, # 16 Gm, 11 Refills, 02/17/22 13:14:00 EDT, [facility] #[id number], 30, SPRAY 2 TIMES IN EACH NOSTRILS EVERY DAY. NEEDED FO... Start Date: 02/17/22 Status: Ordered formoterol 10 mcg/mL inhalation solution 2 mL = 20 mcg, Inhalation, 2 times a day, using a continuous flow nebulizer, # 120 mL, 11 Refills, Maintenance, 10/16/22 16:58:00 EST, Solution, [facility] #[id number], Partial fill upon patientrequest if the prescription [...] 06/18/22 13:56:00 EDT, Route to Pharmacy Electronically, [facility] #[id number], Partial fill upon patient request if... Start [...] tablet, 11 Refills, Maintenance, 09/30/22 12:56:00 EST, [facility] #[id number], 163, cm, 09/30/22 11:48:00 EST, Height, 92.8, kg, 09/24/22 22:19:00 EST, Dry Weight Start Date: 09/30/22 Status: Ordered lisinopril 40 mg oral tablet 1 tablet = 40 mg, By Mouth, 2 times a day, increase dose discontinue HCTZ 12.5mg, # 60 tablet, 11 Refills, Maintenance, 09/30/22 12:54:00 EST, Tablet, [facility] #[id number], 163, cm, 09/30/22 11:48:00 EST, Height, 92.8, kg, 09/24/22 22:19:00... Start Date: 09/30/22 Stop Date: 09/25/23 Status: Ordered Matzim LA 360 mg/24 hours oral tablet, extended release 1 tablet, By Mouth, Daily, # 90 tablet, 3 Refills, 02/17/22 13:08:00 EDT, [facility] #[id number], 165, cm, 02/17/22 12:49:00 EDT, Height, 88.9, kg, 02/09/22 15:14:00 EDT, Dry Weight Start Date: 02/17/22 Status: Ordered metFORMIN 500 mg oral tablet, extended release 1 tablet = 500 mg, By Mouth, Daily in AM, discontinue metformin 500mg with meal, # 30 tablet, 11 Refills, Maintenance, 09/30/22 12:51:00 EST, ER Tablet, [facility] #[id number], 163, cm, 09/30/2310:48:00 EST, Height, 92.8, kg, 09/24/22 22:1... Start Date: 09/30/22 Status: Ordered mirtazapine 15 mg oral tablet 0.5 tablet, By Mouth, Daily at bedtime, DECREASED DOSE, # 45 tablet, 1 Refills, Maintenance, 10/20/22 20:06:00 EST, [facility] #[id number], 163, cm, 10/16/22 16:21:00 EST, Height, 92.8, kg, 09/24/22 22:19:00 EST, Dry Weight Start Date: 10/20/22 Status: Ordered montelukast 10 mg oral tablet 1, tablet, By Mouth, Daily at bedtime, SUPPLY., # 90 tablet, Refills 1, Maintenance, 06/18/22 14:04:00 EDT, Route to Pharmacy Electronically, [facility] #[id number], 165, cm, 06/18/22 13:19:00 EDT, Height, 88.9, kg, 02/09/22 15:14:00 EDT, Dry Weight Start Date: 06/18/22 Stop Date: 09/16/22 Status: Ordered Zsl-agy-bdbpg medical-grade oxford diabetic shoes, depth or hightop Ipp-eov-wkevp medical-grade oxford diabetic shoes, depth or hightop, [...] Refills, Maintenance, 12/18/21 15:48:00 EDT, EC Capsule, [facility] #[id number], 165, cm, 10/29/21 12:16:00 EST,... Start Date: 12/18/21 Status: Ordered pravastatin 80 mg oral tablet 1 tablet, By Mouth, Daily, # 90 tablet, 1 Refills, Maintenance, 06/27/22 12:04:00 EDT, [facility] #[id number], 165, cm, 06/18/22 13:19:00 EDT, Height, 88.9, kg, 02/09/22 15:14:00 EDT, Dry Weight Start Date: 06/27/22 Status: Ordered Premarin Vaginal 0.625 mg/gm cream with applicator See Instructions, APPLY 1/2 GRAM IN THE VAGINA EVERY WEDNESDAY AND WEDNESDAY, # 30 Gm, 11 Refills, Maintenance, 05/11/22 14:58:00 EDT, [facility] #[id number], 30, APPLY 1/2 GRAM IN THE VAGINA EVERY WEDNESDAY AND WEDNESDAY, 165, cm, 02/23/22 14:24:00 EDT,... Start Date: 05/11/22 Status: Ordered ProAir HFA 90 mcg/inh inhalation aerosol with adapter 2, puffs, Inhalation, 4 times a day, PRN, # 1 each, Refills 11, Tot. Refills 11, Maintenance, 10/16/22 17:00:00 EST, Route to Pharmacy Electronically, [id number], [facility] #[id number], 163, cm, 10/16/22 16:21:00 EST, H... Start [...] opioid drug. Start Date: 10/16/22 Status: Ordered Problem List Condition Confirmation Course Effective Dates Status H ealt Status Informant Allergic rhinitis Confirmed Active Anxiety [...] 4, 5, 6, 7 Confirmed 08/09/06 Active *[id number] Sprinkling System Installer Francis Caity Confirmed Active Varicose vein Confirmed Active 1Mild [...] Care team information Care Team Personnel Name: Haley Gonzalez RN Position: [facility] RN Member Role: Primary Care Nurse Name: Jessica Perrin MD Position: [facility] Primary Care Physician Member Role: PCP Address: Address: [address] [place] [address]- Care Team Related Persons Name: SANDY BOYCE Address: home [address] [place] [address] Name: COLT BOYCE Address: home [address] [place] [address]
--- OUTSIDE RECORDS SUMMARY | 2024-07-06 12:02 | XMS_ITS | Continuity of Care Document ---
Author Organization [facility] Address [address] [place] [address]- Care Team Providers Care Air Conditioning Manager Name Role Phone Marychuy MCCLAIN, Jessica Primary Care Physician Encounter [facility] Date(s): 09/22/22 - 10/22/22 [facility] [address]- [place] Allergies, Adverse Reactions, Alerts Substance Reaction [...] Vaccine Date Status Refusal Reason SARS-CoV-2 mRNA ([id number]-kiqh-rjhdt) vax 02/17/22 Given influenza virus vaccine, inactivated [...] tablet, 11 Refills, Maintenance, 05/13/22 11:27:00 EDT, [facility] #[id number], Partial fill upon cherelle... Start Date: 05/13/22 Status: Ordered albuterol 0.083% inhalation solution 3 mL = 2.5 mg, Inhalation, Every 6 hours, # 25 each, 5 Refills, Maintenance, 08/12/22 15:02:00 EST,[facility] #[id number], 165, cm, 06/18/22 13:19:00 EDT, Height, 88.9, kg, 02/09/22 15:14:00 EDT, Dry Weight Start Date: 08/12/22 Stop Date: 02/08/23 Status: Ordered budesonide 0.5 mg/2 mL inhalation suspension 0.5 mg, 2, mL, Neb, 2 times a day, # 120 mL, Refills 11, Tot. Refills 11, Maintenance, 10/16/22 16:58:00 EST, Suspension, Route to Pharmacy Electronically, [id number], [facility] #[id number], 163, cm, 10/16/22 16:21:00 E... Start Date: 10/16/22 Status: Ordered budesonide 0.5 mg/2 mL inhalation suspension 0.5 mg, 2, mL, Neb, 2 times a day, # 120 mL, Refills 11, Tot. Refills 11, Maintenance, 08/13/22 15:24:00 EST, Suspension, Route to Pharmacy Electronically, [id number], [facility] #[id number], 165, cm, 06/18/22 13:19:00 E... Start Date: 08/13/22 Status: Ordered calcium (as citrate)-vitamin D 315 mg-250 intl units oral tablet 2 tablet, By Mouth, 2 times a day, # 360 tablet, 0 Refills, Maintenance, 09/11/22 8:59:00 EST, [facility] #[id number], 90, TAKE 2 TABLETS BY MOUTH TWICE DAILY, 165, cm, 06/18/22 13:19:00 EDT, Height, 88.9, kg, 02/09/22 15:14:00 EDT, Dry Weight Start Date: 09/11/22 Status: Ordered citalopram 20 mg oral tablet 20 mg, 1, tablet, By Mouth, Daily, # 90 tablet, Refills 3, Tot. Refills 3, Maintenance, 07/08/22 14:31:00 EDT, Route to Pharmacy Electronically, [facility] #[id number], is awared of interaction w rosaseshelli, 165, cm, 06/18/22 13:19:00 EDT, He... Start Date: 07/08/22 Status: Ordered Clarinex 5 mg oral tablet 1 tablet = 5 mg, By Mouth, Daily, # 90 tablet, 3 Refills, Maintenance, 04/29/22 12:53:00 EDT, Tablet, [facility] #[id number], 165, cm, 02/23/22 14:24:00 EDT, Height, 88.9, [...] 0 Refills, Soft Stop, 10/22/21 10:11:00 EST, [facility] #[id number], 165, cm, 10/22/21 9:05:00 EST, Height, 89.5, kg, 04/23/2121:43:00 EDT, Dry Weight Start Date: 10/22/21 Status: Ordered fluticasone 50 mcg/inh nasal spray See Instructions, SPRAY 2 TIMES IN EACH NOSTRILS EVERY DAY. NEEDED FOR ALLERGY SEASON. WHEN SPRAYING KEEP HEAD DOWN, # 16 Gm, 11 Refills, 02/17/22 13:14:00 EDT, [facility] #[id number], 30, SPRAY 2 TIMES IN EACH NOSTRILS EVERY DAY. NEEDED FO... Start Date: 02/17/22 Status: Ordered formoterol 10 mcg/mL inhalation solution 2 mL = 20 mcg, Inhalation, 2 times a day, using a continuous flow nebulizer, # 120 mL, 11 Refills, Maintenance, 10/16/22 16:58:00 EST, Solution, [facility] #[id number], Partial fill upon patientrequest if the prescription [...] 06/18/22 13:56:00 EDT, Route to Pharmacy Electronically, [facility] #[id number], Partial fill upon patient request if... Start [...] tablet, 11 Refills, Maintenance, 09/30/22 12:56:00 EST, [facility] #[id number], 163, cm, 09/30/22 11:48:00 EST, Height, 92.8, kg, 09/24/22 22:19:00 EST, Dry Weight Start Date: 09/30/22 Status: Ordered lisinopril 40 mg oral tablet 1 tablet = 40 mg, By Mouth, 2 times a day, increase dose discontinue HCTZ 12.5mg, # 60 tablet, 11 Refills, Maintenance, 09/30/22 12:54:00 EST, Tablet, [facility] #[id number], 163, cm, 09/30/22 11:48:00 EST, Height, 92.8, kg, 09/24/22 22:19:00... Start Date: 09/30/22 Stop Date: 09/25/23 Status: Ordered Matzim LA 360 mg/24 hours oral tablet, extended release 1 tablet, By Mouth, Daily, # 90 tablet, 3 Refills, 02/17/22 13:08:00 EDT, [facility] #[id number], 165, cm, 02/17/22 12:49:00 EDT, Height, 88.9, kg, 02/09/22 15:14:00 EDT, Dry Weight Start Date: 02/17/22 Status: Ordered metFORMIN 500 mg oral tablet, extended release 1 tablet = 500 mg, By Mouth, Daily in AM, discontinue metformin 500mg with meal, # 30 tablet, 11 Refills, Maintenance, 09/30/22 12:51:00 EST, ER Tablet, [facility] #[id number], 163, cm, 09/30/2310:48:00 EST, Height, 92.8, kg, 09/24/22 22:1... Start Date: 09/30/22 Status: Ordered mirtazapine 15 mg oral tablet 0.5 tablet, By Mouth, Daily at bedtime, DECREASED DOSE, # 45 tablet, 1 Refills, Maintenance, 10/20/22 20:06:00 EST, [facility] #[id number], 163, cm, 10/16/22 16:21:00 EST, Height, 92.8, kg, 09/24/22 22:19:00 EST, Dry Weight Start Date: 10/20/22 Status: Ordered montelukast 10 mg oral tablet 1, tablet, By Mouth, Daily at bedtime, SUPPLY., # 90 tablet, Refills 1, Maintenance, 06/18/22 14:04:00 EDT, Route to Pharmacy Electronically, [facility] #[id number], 165, cm, 06/18/22 13:19:00 EDT, Height, 88.9, kg, 02/09/22 15:14:00 EDT, Dry Weight Start Date: 06/18/22 Stop Date: 09/16/22 Status: Ordered Uek-igy-dzobl medical-grade oxford diabetic shoes, depth or hightop Wze-ynr-bktya medical-grade oxford diabetic shoes, depth or hightop, [...] Refills, Maintenance, 12/18/21 15:48:00 EDT, EC Capsule, [facility] #[id number], 165, cm, 10/29/21 12:16:00 EST,... Start Date: 12/18/21 Status: Ordered pravastatin 80 mg oral tablet 1 tablet, By Mouth, Daily, # 90 tablet, 1 Refills, Maintenance, 06/27/22 12:04:00 EDT, [facility] #[id number], 165, cm, 06/18/22 13:19:00 EDT, Height, 88.9, kg, 02/09/22 15:14:00 EDT, Dry Weight Start Date: 06/27/22 Status: Ordered Premarin Vaginal 0.625 mg/gm cream with applicator See Instructions, APPLY 1/2 GRAM IN THE VAGINA EVERY WEDNESDAY AND WEDNESDAY, # 30 Gm, 11 Refills, Maintenance, 05/11/22 14:58:00 EDT, [facility] #[id number], 30, APPLY 1/2 GRAM IN THE VAGINA EVERY WEDNESDAY AND WEDNESDAY, 165, cm, 02/23/22 14:24:00 EDT,... Start Date: 05/11/22 Status: Ordered ProAir HFA 90 mcg/inh inhalation aerosol with adapter 2, puffs, Inhalation, 4 times a day, PRN, # 1 each, Refills 11, Tot. Refills 11, Maintenance, 10/16/22 17:00:00 EST, Route to Pharmacy Electronically, [id number], [facility] #[id number], 163, cm, 10/16/22 16:21:00 EST, H... Start [...] 4, 5, 6, 7 Confirmed 08/09/06 Active *[id number] Organic Extractions Technician Francis Caity Confirmed Active Varicose vein Confirmed [...] team information Care Team Personnel Name: Haley Gonzlaez RN Position: [facility] RN Member Role: Primary Care Nurse Name: Jessica Perrin MD Position: [facility] Primary Care Physician Member Role: PCP Address: Address: [address] [place] [address]- Care Team Related Persons Name: SANDY BOYCE Address: home [address] [place] [address] Name: COLT BOYCE Address: [address] [place] [address]
--- OUTSIDE RECORDS SUMMARY | 2024-07-06 12:02 | XMS_ITS | Continuity of Care Document ---
Author Organization [facility] Address [address] [place] [id number]- Care Team Providers Care Jeeper Operator Name Role Phone Marychuy MCCLAIN, Jessica Primary Care Physician [facility] Date[facility]): 08/12/23 - 09/11/23 [facility] [address] [address] Allergies, Adverse Reactions, Alerts Substance Reaction Severity [...] virus vaccine, inactivated 5 07/29/06 Gi javon [id number] 12y+ bivalent booster vax 03/24/23 Given [id number] 12y+ bivalent booster vax 07/28/22 Recorded SARS-CoV-2 mRNA ([id number]-xsdva) vax 02/17/22 Given SARS-CoV-2 (COVID-19) mRNA BNT-162b2 [...] pain or fever, (not to exceed 3000 mg/day), # 100 tablet, 11 Refills, Maintenance, 03/24/23 10:28:00 EDT, [facility] #[id number], 160, cm, 03/24/23 10:19:00 EDT, Height, 89.54, kg, 0... Start Date: 03/24/23 Status: Ordered albuterol 0.083% inhalation solution 3 mL = 2.5 mg, Inhalation, Every 6 hours, # 25 each, 5 Refills, Maintenance, 08/12/22 15:02:00 EST,[facility] #[id number], 165, cm, 06/18/22 13:19:00 EDT, Height, 88.9, kg, 02/09/22 15:14:00 EDT, Dry Weight Start Date: 08/12/22 Stop Date: 02/08/23 Status: Ordered Alcohol Wipes See Instructions, # 50 each, Refills 11, Tot. Refills 11, Maintenance, use daily for blood sugar testing once a day Dx DM type 2 E11.9, Diabetes mellitus type 2, 03/24/23 9:56:00 EDT, Compound, 160, cm, 03/24/23 9:26:00 EDT, Height, 89.54, kg, 01/13... Start Date: 03/24/23 Status: Ordered budesonide 0.5 mg/2 mL inhalation suspension 0.5 mg, 2, mL, Neb, 2 times a day, [id number], # 120 mL, Refills 5, Tot. Refills 5, Maintenance, 08/12/23 10:50:00 EST, Suspension, Route to Pharmacy Electronically, [id number], [facility] #[id number], 160, cm, 03/24/23 10:... Start Date: 08/12/23 Status: Ordered calcium (as citrate)-vitamin D 315 mg-250 intl units oral tablet 2 tablet, By Mouth, 2 times a day, # 360 tablet, 3 Refills, Maintenance, 03/24/23 10:33:00 EDT, [facility] #[id number], 2 tablet By Mouth 2 times a day,x90 days, 160, cm, 03/24/23 10:19:00 EDT, Height, 89.54, kg, 02/09/23 16:45:00 EDT, Dry Weight Start Date: 03/24/23 Stop Date: 03/18/24 Status: Ordered ciclopirox 8% topical solution 1 application, Topically, Daily, as directed to affected area toenails, # 6.6 mL, 11 Refills, Maintenance, 03/24/23 10:42:00 EDT, Solution, [facility] #[id number], ., 1 application Topically Daily,Instr:as directed; to affected area toenails, 16... Start Date: 03/24/23 Status: Ordered citalopram 20 mg oral tablet 20 mg, 1, tablet, By Mouth, Daily, # 90 tablet, Refills 3, Tot. Refills 3, Maintenance, 03/24/23 10:23:00 EDT, Route to Pharmacy Electronically, [facility] #[id number], MD is awared of interaction w prilosec, 160, cm, 03/24/23 10:19:00 EDT, He... Start Date: 03/24/23 Status: Ordered Clarinex 5 mg oral tablet 1 tablet = 5 mg, By Mouth, Daily, # 90 tablet, 3 Refills, Maintenance, 03/24/23 10:23:00 EDT, Tablet, [facility] #[id number], 160, cm, 03/24/23 10:19:00 EDT, Height, 89.54, kg, 02/09/23 16:45:00EDT, Dry Weight Start Date: 03/24/23 Stop Date: 03/18/24 Status: Ordered Compression- Lower Extremity (Knee High) See Instructions, # 2 each, Refills 11, Tot. Refills 11, Maintenance, use daily; closed toes; 15-20mmHg. Dx peripheral vascular insufficiency I 87.2, 03/24/23 10:24:00 EDT, Compound Start Date: 03/24/23 Status: Ordered Eliquis 5 mg oral tablet 1 tablet, By Mouth, 2 times a day, # 180 tablet, 3 Refills, Maintenance, 03/24/23 10:04:00 EDT, [facility] #[id number], 160, cm, 03/24/23 9:26:00 EDT, Height, 89.54, kg, 02/09/23 16:45:00 EDT, Dry Weight Start Date: 03/24/23 Status: Ordered EPINEPHrine 0.3 mg injectable solution = 0.3 mg, Intramuscular, Once, PRN Anaphylactic Reaction, # 1 each, 0 Refills, Soft Stop, 10/22/21 10:11:00 EST, [facility] #[id number], 165, cm, 10/22/21 9:05:00 EST, Height, 89.5, kg, 04/23/2121:43:00 EDT, Dry Weight Start Date: 10/22/21 Status: Ordered fluticasone 50 mcg/inh nasal spray 2 sprays, Nares, Both, Daily, Use every day during allergy season. While using spray keep head down., # 3 each, 3 Refills, Maintenance, 03/24/23 10:28:00 EDT, [facility] #[id number], ., 2 spraysNares, Both Daily,x90 days,Instr:Use every day duri... Start Date: 03/24/23 Stop Date: 03/18/24 Status: Ordered formoterol 10 mcg/mL inhalation solution 2 mL = 20 mcg, Inhalation, 2 times a day, using a continuous flow nebulizer, # 120 mL, 11 Refills, Maintenance, 10/16/22 16:58:00 EST, Solution, [facility] #[id number], Partial fill upon patientrequest if the prescription is for a schedule II op... Start Date: 10/16/22 Stop Date: 10/11/23 Status: Ordered Glucose Monitor See Instructions, # 1 each, Refills 0, Tot. Refills 0, Maintenance, use to test blood sugar as directed; One Touch Ultra 2 Dx DM type 2, DM, 03/24/23 9:56:00 EDT, Supply, 160, cm, 03/24/23 9:26:00 EDT, Height, 89.54, kg, 02/09/23 16:45:00 EDT,... Start Date: 03/24/23 Status: Ordered hydrALAZINE 25 mg oral tablet See Instructions, By mouth 2 tab in 7 AM, 1 tab at1PM and 2 PM at 4PM 90-day supply, # 450 tablet, Refills 3, Tot. Refills 3, Maintenance, 03/24/23 10:09:00 EDT, Instructions Replace Required Details, Route to Pharmacy Electronically, [facility]... Start Date: 03/24/23 Status: Ordered Lancets See Instructions, # 50 each, Refills 11, Tot. Refills 11, Maintenance, use daily for blood sugar testing once a day Dx DM type 2 E11.9 One Touch Damaris, DM type 2, 03/24/23 9:56:00 EDT, Compound, 160, cm, 03/24/23 9:26:00 EDT, Height, 89.54, kg, 05... Start Date: 03/24/23 Status: Ordered levothyroxine 0.05 mg oral tablet 1 tablet, By Mouth, Daily, # 90 tablet, 3 Refills, Maintenance, 03/24/23 10:31:00 EDT, [facility] #[id number], 160, cm, 03/24/23 10:19:00 EDT, Height, 89.54, kg, 02/09/23 16:45:00 EDT, Dry Weight Start Date: 03/24/23 Stop Date: 03/18/24 Status: Ordered lisinopril 40 mg oral tablet 1 tablet = 40 mg, By Mouth, Daily in AM, 11 AM Decreased dose, # 90 tablet, 3 Refills, Maintenance,03/24/23 10:12:00 EDT, Tablet, [facility] #[id number], 160, cm, 03/24/23 9:26:00 EDT, Height, 89.54, kg, 02/09/23 16:45:00 EDT, Dry Weight Start Date: 03/24/23 Stop Date: 03/18/24 Status: Ordered Matzim LA 180 mg/24 hours oral tablet, extended release 1 tablet = 180 mg, By Mouth, Daily in AM, Discontinue diltiazem 360 mg Takes at 11 AM, # 90 tablet,3 Refills, Maintenance, 03/24/23 9:58:00 EDT, ER Tablet, [facility] #[id number], 160, cm, 03/24/23 9:26:00 EDT, Height, 89.54, kg, 02/09/23 16:45... Start Date: 03/24/23 Stop Date: 03/18/24 Status: Ordered metFORMIN 500 mg oral tablet, extended release 1 tablet = 500 mg, By Mouth, 2 times a day, with meal Increase dose, # 180 tablet, 3 Refills, Maintenance, 03/24/23 10:19:00 EDT, ER Tablet, [facility] #[id number], 160, cm, 03/24/23 10:19:00 EDT, Height, 89.54, kg, 02/09/23 16:45:00 EDT, Dry W... Start Date: 03/24/23 Stop Date: 03/18/24 Status: Ordered mirtazapine 15 mg oral tablet 0.5 tablet, By Mouth, Daily at bedtime, # 45 tablet, 3 Refills, Maintenance, 03/24/23 10:22:00 EDT,[facility] #[id number], 160, cm, 03/24/23 10:19:00 EDT, Height, 89.54, kg, 02/09/23 16:45:00 EDT, Dry Weight Start Date: 03/24/23 Stop Date: 03/18/24 Status: Ordered montelukast 10 mg oral tablet 1, tablet, By Mouth, Daily at bedtime, SUPPLY., # 90 tablet, Refills 3, Tot. Refills 3, Maintenance, 06/05/23 14:50:00 EDT, Route to Pharmacy Electronically, [facility] #[id number], 160, cm, 03/24/23 10:19:00 EDT, Height, 89.54, kg, 02/09/23 16:4... Start Date: 06/05/23 Status: Ordered Apf-quz-nwnay medical-grade oxford diabetic shoes, depth or hightop Sce-xut-lwmbx medical-grade oxford diabetic shoes, depth or hightop, See Instructions, # 1 each, Refills 0, Tot. 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 Start Date: 03/24/23 Status: Ordered omeprazole 20 mg oral enteric coated capsule 1 capsule = 20 mg, By Mouth, Daily, 30 minutes before breakfast MD is aware of interaction with citalopram, # 90 capsule, 3 Refills, Maintenance, 03/24/23 10:28:00 EDT, [facility] #[id number], 160, cm, 03/24/23 10:19:00 EDT, Height, 89.54, kg, 0... Start Date: 03/24/23 Stop Date: 03/18/24 Status: Ordered pravastatin 80 mg oral tablet 1 tablet, By Mouth, Daily, # 90 tablet, 3 Refills, Maintenance, 03/24/23 10:32:00 EDT, [facility] #[id number], 160, cm, 03/24/23 10:19:00 EDT, Height, 89.54, kg, 02/09/23 16:45:00 EDT, Dry Weight Start Date: 03/24/23 Stop Date: 03/18/24 Status: Ordered Premarin Vaginal 0.625 mg/gm cream with applicator See Instructions, APPLY 1/2 GRAM IN THE VAGINA EVERY WEDNESDAY AND WEDNESDAY, # 30 Gm, 11 Refills, Maintenance, 03/24/23 10:23:00 EDT, [facility] #[id number], 30, APPLY 1/2 GRAM IN THE VAGINA EVERY WEDNESDAY AND WEDNESDAY, 160, cm, 03/24/23 10:19:00 EDT,... Start Date: 03/24/23 Status: Ordered ProAir HFA 90 mcg/inh inhalation aerosol with adapter 2, puffs, Inhalation, 4 times a day, PRN, Fill when patient request it, # 1 each, Refills 5, Tot. Refills 5, Maintenance, 03/24/23 10:30:00 EDT, Route to Pharmacy Electronically, [id number], [facility] #[id number], 160,... Start Date: 03/24/23 Status: Ordered Shoes insert, molded to foot [...] in AM, at 11 AM Given by lace burn out tender, Dr. Indio Mason, # 30 tablet, Refills 0, Maintenance, 10/16/22 16:24:00 EST Start Date: 10/16/22 Status: Ordered Test Strips See Instructions, # 50 each, Refills 11, Tot. Refills 11, Maintenance, use daily for blood sugar testing once a day Dx DM type 2 E11.9 One Touch Ultra, Diabetes mellitus type 2, 03/24/23 9:56:00 EDT,Compound, 160, cm, 03/24/23 9:26:00 EDT, Height,... Start Date: 03/24/23 Status: Ordered triamcinolone 0.025% topical cream 1 application, Topically, 3 times a day, PRN itching Apply to lower extremities [place], # 30 Gm, 2Refills, Maintenance, 03/24/23 10:34:00 EDT, [facility] #[id number], 1 application Topically 3times a day,Instr:PRN itching ; Apply to lower... Start Date: 03/24/23 Status: Ordered Problem List Condition Confirmation Course [...] 5, 6, 7, 8 Confirmed 08/09/06 Active [id number] Certified Ophthalmic Surgical Assistant Yee Ceballos Confirmed Active Varicose vein Confirmed Active 1occlusive [...] Team Personnel Name: Haley Gonzalez RN Position: [facility] RN Member Role: Primary Care Nurse Name: Jessica Perrin MD Position: [facility] Physician - Primary Care Member Role: PCP Address: Address: [address] [place] [address]- Care Team Related Persons Name: SANDY BOYCE Address: home [address] [place] [address] Name: COLT BOYCE Address: home [address] [place] [address]
--- OUTSIDE RECORDS SUMMARY | 2024-07-06 12:02 | XMS_ITS | Continuity of Care Document ---
Author Organization [facility] Address [address] [place] [address]- Care Team Providers Care Business Office Manager Name Role Phone Jessica Perrin MD Primary Care Physician [facility] Date[facility]s): 04/23/20 - 05/23/[address] [address]- [facility] Attending Physician: Dominik Elizabeth Admitting Physician: Dominik Elizabeth Referring Physician: AdmtrDominik Allergies, Adverse Reactions, Alerts Substance Reaction Severity [...] Refills, Maintenance, 08/30/19 9:25:00 EST, ER Tablet, [facility] #[id number], 162.5, cm, 07/25/19 9:45:00 ES... Start Date: 08/30/19 Status: Ordered albuterol 0.083% inhalation solution 3 mL = 2.5 mg, Inhalation, Every 6 hours, # 25 each, 2 Refills, Maintenance, 06/28/19 7:33:09 EDT Start Date: 06/28/19 Stop Date: 09/26/19 Status: Ordered Alcohol Wipes See Instructions, # 50 each, Refills 11, Tot. Refills 11, Maintenance, use daily for blood sugar testing once a day Dx DM type 2, E11.9, Diabetes mellitus type 2, 02/02/20 16:28:00 EDT, Compound, 165, cm, 11/03/19 18:19:00 EST, Height, 88, kg, 10/15... Start Date: 02/02/20 Status: Ordered aspirin 81 mg oral delayed release tablet 81 mg, 1, tablet, By Mouth, Daily, with food, # 90 tablet, Refills 3, Tot. Refills 3, Maintenance, 02/02/20 16:28:00 EDT, Route to Pharmacy Electronically, [facility] #[id number], 165, cm, 11/03/19 18:19:00 EST, Height, 88, kg, 11/03/19 18:19:00... Start Date: 02/02/20 Status: Ordered calcium (as citrate)-vitamin D 315 mg-250 intl units oral tablet 2 tablet, By Mouth, 2 times a day, Tej, # 360 tablet, 3 Refills, Maintenance, 02/02/20 16:28:00 EDT, Tablet, [facility] #[id number], 2 tablet By Mouth 2 times a day,x90 days,Instr:Tej, 165, cm, 11/03/19 18:19:00 EST, Height, 88, kg, 11/03/19 18... Start Date: 02/02/20 Stop Date: 01/27/21 Status: Ordered celecoxib 100 mg oral capsule 1 capsule = 100 mg, By Mouth, 2 times a day, PRN knee pain Discontinue topical diclofenac, # 60 capsule, 3 Refills, Maintenance, 02/26/20 12:58:00 EDT, Capsule, [facility] #[id number], 165, cm, 11/03/19 18:19:00 EST, Height, 88, kg, 11/03/19 18... Start Date: 02/26/20 Status: Ordered citalopram 20 mg oral tablet 20 mg, 1, tablet, By Mouth, Daily, # 90 tablet, Refills 3, Tot. Refills 3, Maintenance, 07/18/19 10:44:28 EST, Route to Pharmacy Electronically, [id number], [facility] #[id number] is awared of interaction w prilosec Start Date: 07/18/19 Status: Ordered Colace sodium 100 mg oral capsule 100 mg, 1, capsule, By Mouth, 2 times a day, PRN, with plenty of water, # 180 capsule, Refills 3, Tot. Refills 3, Maintenance, as needed for constipation, 08/30/19 9:25:00 EST, Route to Pharmacy Electronically, [facility] #[id number], 162.5, cm,... Start Date: 08/30/19 Status: Ordered [...] Gm, 11 Refills, Maintenance, 10/25/19 11:57:00 EST, [facility] #[id number], dispe... Start Date: 10/25/19 Status: Ordered hydrALAZINE 10 mg oral tablet 10 mg, 1, tablet, By Mouth, 3 times a day, 90 days While using celecoxib use 3 times a day; when she is not using celecoxib, she is to use 2 times a day, # 180 tablet, Refills 3, Tot. Refills 3, Maintenance, 02/26/20 12:58:00 EDT, Route to Pharmacy E... Start Date: 02/26/20 Status: Ordered hydrochlorothiazide-lisinopril 25 mg-20 mg oral tablet 1 tablet, By Mouth, Daily, discontinue HCTZ 12.5/lisnopril 20mg, # 90 tablet, 3 Refills, Maintenance, 09/04/19 22:49:00 EST, Tablet, [facility] #[id number], 90 days, 1 tablet By Mouth Daily,Instr:discontinue HCTZ 12.5/lisnopril 20mg, 162.5, cm, 1... Start Date: 09/04/19 Status: Ordered Incruse Ellipta 62.5 mcg/inh inhalation powder = 62.5 mcg, Inhalation, Every 24 hours, doses should be taken at least 24 hours apart discontinue Tudorza, # 30 each, 11 Refills, Maintenance, 08/30/19 9:23:00 EST, [facility] #[id number], 162.5, cm, 07/25/19 9:45:00 EST, Height, 85.9, [...] Daily, 90 days supply, # 90 tablet, 1 Refills, Maintenance, 12/18/19 13:45:00 EDT, [facility] #[id number], 165, cm, 11/03/19 18:19:00 EST, Height, 88, kg, 11/03/19 18:19:00 EST, Dry Weight Start Date: 12/18/19 Status: Ordered loratadine 10 mg oral tablet 10 mg, 1, tablet, By Mouth, Daily, PRN, # 90 tablet, Refills 3, Tot. Refills 3, Maintenance, as needed for allergy symptoms, 08/30/19 9:25:00 EST, Route to Pharmacy Electronically, [facility] #[id number], 162.5, cm, 07/25/19 9:45:00 EST, Height,... Start Date: 08/30/19 Status: Ordered metFORMIN 500 mg oral tablet 1 tablet = 500 mg, By Mouth, 2 times a day, discontinue metformin 1000mg, # 180 tablet, 1 Refills, Maintenance, 12/21/19 7:30:00 EDT, Tablet, [facility] #[id number], 165, cm, 11/03/19 18:19:00 EST, Height, 88, kg, 11/03/19 18:19:00 EST, Dry Weight Start Date: 12/21/19 Status: Ordered Nkj-xpt-xcduf medical-grade oxford diabetic shoes, depth or hightop Mig-zrk-duwrq medical-grade oxford diabetic shoes, depth or hightop, [...] 3 Refills, Maintenance, 08/30/19 9:25:00 EST, Tablet, [facility] #[id number], 162.5, cm, 07/25/19 9:45:00 EST, Height, 85.9, kg, 199:45:00 EST, Dry Weight Start Date: 08/30/19 Status: Ordered Premarin Vaginal 0.625 mg/gm cream with applicator = 0.5 Gm, Vaginally, Every Wednesday and , # 42.5 Gm, 11 Refills, Maintenance, 02/02/20 16:27:00 EDT, [facility] #[id number], discontinue estradiol 10mcg vaginal, 0.5 Gm Vaginally Every Wednesday and , 165, cm, 11/03/19 18:19:00 EST,... Start Date: 02/02/20 Status: Ordered PriLOSEC OTC 20 mg oral delayed release tablet 1 tablet = 20 mg, By Mouth, Daily, Take 30 mins before breakfast, # 90 tablet, 3 Refills, Maintenance, 02/02/20 16:28:00 EDT, [facility] #[id number], is awared of interaction with citalopram,165, cm, 11/03/19 18:19:00 EST, Height, 88, kg,... Start Date: 02/02/20 Status: Ordered Remeron 15 mg oral tablet 0.5 tablet = 7.5 mg, By Mouth, Daily at bedtime, # 45 tablet, 1 Refills, Maintenance, 12/18/19 13:45:00 EDT, Tablet, [facility] #[id number], 165, cm, 11/03/19 18:19:00 EST, Height, 88, kg, 11/03/19 18:19:00 EST, Dry Weight Start Date: 12/18/19 Status: Ordered Shoes insert, molded to foot [...] 06/28/19 7:33:11 EDT, Route to Pharmacy Electronically, [id number], [facility] #[id number] Start Date: 06/28/19 Status: Ordered Sinus rinse [...] it, # 8.5 Gm, 5 Refills, Maintenance, 04/04/20 12:19:00 EDT, [facility] #[id number]... 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
--- OUTSIDE RECORDS SUMMARY | 2024-07-06 12:03 | XMS_ITS | Continuity of Care Document ---
Author Organization [facility] Address Unknown Care Team Providers Care Facilities Project Manager Name Role Phone Jessica Perrin MD Primary Care Physician [place] [facility] [place]22 [facility] Allergies, Adverse Reactions, Alerts Substance Reaction Severity Status dexamethasone Swelling of throat 10-DEC-2015 19:14:30<$> Persistent Mild Active methylPREDNISolone Increase blood press ure inmediately after ingesting it w SOB, vomits and dizziness Persistent Moderate Active predniSONE 1 Itchy skin eruption Persistent Severe Act royer tramadol Itch Persistent Mild Active 1Not associated with swelling nor shortness of breath Immunizations Given and Recorded Vaccine Date Status Refusal Reason influenza virus vaccine, inactivated 06/23/21 Brian rded [...] 07/14/07 Give n influenza virus vaccine, inactivated 07/29/06 Gi javon SARS-CoV-2 (COVID-19) mRNA BNT-162b2 [...] GIVEN 9Admin Note: GIVEN BY NURSE Medications Alcohol Wipes See Instructions, # 50 each, Refills 11, Tot. Refills 11, Maintenance, use daily for blood sugar testing once a day Dx DM type 2, E11.9, Diabetes mellitus type 2, 03/26/21 13:04:00 EDT, Compound, 165, cm, 03/26/21 11:57:00 EDT, Height, 88, kg, 10/15... Start Date: 03/26/21 Status: Ordered aspirin 81 mg oral delayed release tablet 81 mg, 1, tablet, By Mouth, Daily, with food, # 90 tablet, Refills 3, Tot. Refills 3, Maintenance, 03/10/21 15:25:00 EDT, Route to Pharmacy Electronically, [facility] #[id number], 165, cm, 12/25/20 10:00:00 EDT, Height, 88, kg, 11/03/19 18:19:00... Start Date: 03/10/21 Status: Ordered calcium (as citrate)-vitamin D 315 mg-250 intl units oral tablet 2 tablet, By Mouth, 2 times a day, Tej, # 360 tablet, 3 Refills, Maintenance, 03/26/21 13:03:00 EDT, Tablet, [facility] #[id number], 2 tablet By Mouth 2 times a day,x90 days,Instr:Tej, 165, cm, 03/26/21 11:57:00 EDT, Height, 88, kg, 11/03/19 18... Start Date: 03/26/21 Stop Date: 03/21/22 Status: Ordered celecoxib 100 mg oral capsule 1 capsule = 100 mg, By Mouth, 2 times a day, PRN knee pain, # 60 capsule, 5 Refills, Maintenance, 10/22/21 10:44:00 EST, Capsule, [facility] #[id number], 165, cm, 10/22/21 9:05:00 EST, Height, 89.5, kg, 04/23/21 21:43:00 EDT, Dry Weight Start Date: 10/22/21 Status: Ordered citalopram 20 mg oral tablet 20 mg, 1, tablet, By Mouth, Daily, # 90 tablet, Refills 3, Tot. Refills 3, Maintenance, 07/12/21 18:12:00 EDT, Route to Pharmacy Electronically, [facility] #[id number], is awared of interaction w prilosec, 165, cm, 04/23/21 21:43:00 EDT, He... Start Date: 07/12/21 Status: Ordered Clarinex 5 mg oral tablet 1 tablet = 5 mg, By Mouth, Daily, Discontinue loratadine, # 30 tablet, 11 Refills, Maintenance, 03/26/21 13:02:00 EDT, Tablet, [facility] #[id number], 165, cm, 03/26/21 11:57:00 EDT, Height, 88,kg, 11/03/19 18:19:00 EST, Dry Weight Start Date: 03/26/21 Status: Ordered Colace sodium 100 mg oral capsule 100 mg, 1, capsule, By Mouth, 2 times a day, PRN, with plenty of water, # 180 capsule, Refills 3, Tot. Refills 3, Maintenance, as needed for constipation, 03/26/21 13:05:00 EDT, Route to Pharmacy Electronically, [facility] #[id number], Dispense o... Start Date: 03/26/21 Status: Ordered Compression- Lower Extremity (Knee High) See Instructions, # 2 each, Refills 11, Tot. Refills 11, Maintenance, use daily; closed toes; 10-20mmHg. Dx peripheral vascular insufficiency I 87.2, 10/29/21 13:42:00 EST, Compound Start Date: 10/29/21 Status: Ordered EPINEPHrine 0.3 mg injectable solution = 0.3 mg, Intramuscular, Once, PRN Anaphylactic Reaction, # 1 each, 0 Refills, Soft Stop, 10/22/21 10:11:00 EST, [facility] #[id number], 165, cm, 10/22/21 9:05:00 EST, Height, 89.5, kg, 04/23/2121:43:00 EDT, Dry Weight Start Date: 10/22/21 Status: Ordered fluticasone 50 mcg/inh nasal spray See Instructions, SPRAY 2 TIMES IN EACH NOSTRILS EVERY DAY. NEEDED FOR ALLERGY SEASON. WHEN SPRAYING KEEP HEAD DOWN, # 16 Gm, 0 Refills, [facility] #[id number], 30, SPRAY 2 TIMES IN EACH NOSTRILS EVERY DAY. NEEDED FOR ALLERGY SEASON. WHEN S... Start Date: 01/09/22 Status: Ordered hydrALAZINE 10 mg oral tablet 1, tablet, By Mouth, 3 times a day, Increase dose, # 90 tablet, Refills 11, Tot. Refills 11, 10/22/21 10:40:00 EST, Route to Pharmacy Electronically, [facility] #[id number], 165, cm, 10/22/21 9:05:00 EST, Height, 89.5, kg, 04/23/21 21:43:00 EDT,... Start Date: 10/22/21 Status: Ordered hydrochlorothiazide 12.5 mg oral tablet 1 tablet = 12.5 mg, By Mouth, Daily, discontinue HCTZ/lisinopril 25mg /20mg, # 30 tablet, 11 Refills, Maintenance, 10/29/21 13:48:00 EST, Tablet, [facility] #[id number], 165, cm, 10/29/21 12:16:00 EST, Height, 89.5, kg, 04/23/21 21:43:00 EDT, . Start Date: 10/29/21 Status: Ordered Lancets See Instructions, # 50 each, Refills 11, Tot. Refills 11, Maintenance, use daily for blood sugar testing once a day Dx DM type 2 Free Style Lite, DM type 2, 03/26/21 13:04:00 EDT, Compound, 165, cm, 03/26/21 11:57:00 EDT, Height, 88, kg, 11/03/19... Start Date: 03/26/21 Status: Ordered levothyroxine 0.05 mg oral tablet 1 tablet, By Mouth, Daily, # 90 tablet, 1 Refills, [facility] #[id number], 165, cm, 10/29/21 12:16:00 EST, Height, 89.5, kg, 04/23/21 21:43:00 EDT, Dry Weight Start Date: 11/20/21 Status: Ordered lidocaine 5% topical film 1-3 patch, Topically, Daily, Apply patch in affected area. Remove patch(s) after 12 hours. Can reapply after resting 12 hours. Indication: diabetic neuropathy, # 30 patch, 11 Refills, Maintenance, 10/22/21 10:39:00 EST, [facility] #[id number]... Start Date: 10/22/21 Status: Ordered lisinopril 40 mg oral tablet 1 tablet = 40 mg, By Mouth, Daily, discontinue HCTZ/lisinopril 25mg /20mg, # 30 tablet, 11 Refills,Maintenance, 10/29/21 13:47:00 EST, Tablet, [facility] #[id number], Partial fill upon patient request if the prescription is for a schedule II op... Start Date: 10/29/21 Status: Ordered Matzim LA 360 mg/24 hours oral tablet, extended release 1 tablet, By Mouth, Daily, # 90 tablet, 0 Refills, [facility] #[id number], 165, cm, 10/29/21 12:16:00 EST, Height, 89.5, kg, 04/23/21 21:43:00 EDT, Dry Weight Start Date: 01/09/22 Status: Ordered metFORMIN 500 mg oral tablet 1 tablet, By Mouth, 2 times a day, # 180 tablet, 3 Refills, Maintenance, 10/13/21 14:33:00 EST, [facility] #[id number], 165, cm, 04/23/21 21:43:00 EDT, Height, 89.5, kg, 04/23/21 21:43:00 EDT, Dry Weight Start Date: 10/13/21 Status: Ordered Jbi-wgs-kwcab medical-grade oxford diabetic shoes, depth or hightop Dbp-ivr-rihlf medical-grade oxford diabetic shoes, depth or hightop, See Instructions, # 1 each, Refills 0, Tot. 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 Start Date: 12/25/20 Status: Ordered omeprazole 20 mg oral enteric coated capsule 1 capsule = 20 mg, By Mouth, Daily, Take 30 mins before breakfast MD is awared of interaction with citalopram, # 30 capsule, 11 Refills, Maintenance, 12/18/21 15:48:00 EDT, EC Capsule, [facility] #[id number], 165, cm, 10/29/21 12:16:00 EST,... Start Date: 12/18/21 Status: Ordered oxyCODONE 5 mg oral tablet 0.5- 1 tablet, By Mouth, Every 6 hours, PRN pain Diagnosis bilateral knee pain secondary to arthritis Patient does has pain agreement management, # 28 tablet, Refills 0, Tot. Refills 0, Maintenance, 10/22/21 10:41:00 EST, Route to Pharmacy Electr... Start Date: 10/22/21 Stop Date: 10/29/21 Status: Ordered polyethylene glycol 3350 oral powder for reconstitution = 17 Gm, By Mouth, Daily, PRN as needed for constipation, (dissolve in water or juice), # 527 Gm, 11 Refills, Maintenance, 10/22/21 10:43:00 EST, [facility] #[id number], Partial fill upon patient request if the prescription is for a schedule II o... Start Date: 10/22/21 Status: Ordered pravastatin 80 mg oral tablet 1 tablet, By Mouth, Daily, # 90 tablet, 1 Refills, Maintenance, 01/05/22 10:39:00 EDT, [facility] #[id number], 165, cm, 10/29/21 12:16:00 EST, Height, 89.5, kg, 04/23/21 21:43:00 EDT, Dry Weight Start Date: 01/05/22 Status: Ordered Premarin Vaginal 0.625 mg/gm cream with applicator = 0.5 Gm, Vaginally, Every Wednesday and , # 42.5 Gm, 11 Refills, Maintenance, 03/26/21 13:01:00 EDT, [facility] #[id number], 0.5 Gm Vaginally Every Wednesday and , 165, cm, 03/26/21 11:57:00 EDT, Height, 88, kg, 11/03/19 18:19:00 EST,... Start Date: 03/26/21 Status: Ordered Remeron 15 mg oral tablet 0.5 tablet = 7.5 mg, By Mouth, Daily at bedtime, Decreased dose, # 45 tablet, 3 Refills, Maintenance, 03/26/21 13:13:00 EDT, Tablet, [facility] #[id number], 165, cm, 03/26/21 11:57:00 EDT, Height, 88, kg, 11/03/19 18:19:00 EST, Dry Weight Start Date: 03/26/21 Stop Date: 03/21/22 Status: Ordered Shoes insert, molded to foot Shoes insert, molded to foot, See Instructions, # 3 each, Refills 0, Tot. Refills 0, Maintenance, wear every day in both foot Dx DM type 2 with peripheral neuropathy ICD10 E11.40; DMtype 2 pressure callus 11.628 3 pairs, 12/25/20 11:27:00 EDT, Co... Start Date: 12/25/20 Status: Ordered Singulair 10 mg oral tablet 10 mg, 1, tablet, By Mouth, Daily at bedtime, 90 days supply, # 90 tablet, Refills 1, Tot. Refills 1, Maintenance, 12/16/21 10:05:00 EDT, Route to Pharmacy Electronically, [facility] #[id number], 165, cm, 10/29/21 12:16:00 EST, Height, 89.5, kg,... Start Date: 12/16/21 Status: Ordered Sinus rinse Sinus rinse, See Instructions, # 1 each, Refills 0, Tot. Refills 0, Maintenance, Use daily to flusheach nostril, allergic rhinitis, 03/02/18 8:23:36 EDT, Compound Start Date: 03/02/18 Status: Ordered Symbicort 160mcg/4.5mcg Inhaler See Instructions, dispense 2 pumps Use 2 puff every hour prn wheezing up to 12 puff per day; when doesn't has PAULINO, use 2 puff bid, # 2 each, Refills 11, Tot. Refills 11, Maintenance, 10/27/21 18:36:00 EST, Instructions Replace Required Det... Start Date: 10/27/21 Status: Ordered terbinafine 250 mg oral tablet 1 tablet = 250 mg, By Mouth, Daily, # 14 tablet, 0 Refills, Maintenance, 04/28/21 2:38:00 EDT, Tablet, Partial fill upon patient request if the prescription is for a schedule II opioid drug. Start Date: 04/28/21 Stop Date: 05/12/21 Status: Ordered Test Strips See Instructions, # 50 each, Refills 11, Tot. Refills 11, Maintenance, use daily for blood sugar testing once a day Dx DM type 2 Free Style Lite, Diabetes mellitus type 2, 03/26/21 13:04:00 EDT, Compound, 165, cm, 03/26/21 11:57:00 EDT, Height, 88... Start Date: 03/26/21 Status: Ordered Turmeric 500 mg oral capsule 1 capsule = 500 mg, By Mouth, Daily, # 30 capsule, 11 Refills, Maintenance, 10/22/21 10:44:00 EST, Capsule, [facility] #[id number], ., 165, cm, 10/22/21 9:05:00 EST, Height, 89.5, kg, 04/23/21 21:43:00 EDT, Dry Weight Start Date: 10/22/21 Status: Ordered Ventolin HFA 108 mcg/inh inhalation aerosol with adapter 2 puffs, Inhalation, 4 times a day, PRN Wheezing/Shortness of Breath, as directed 15 minutes beforeexercise 30 days not 90 days dispense when patient request it, # 8.5 Gm, 5 Refills, Maintenance, 03/26/21 13:06:00 EDT, [facility] #[id number]... Start Date: 03/26/21 Status: Ordered Vitamin C 500 mg oral tablet 1 tablet = 500 mg, By Mouth, Daily, # 30 tablet, 0 Refills, Maintenance, 07/05/20 14:18:00 EDT, Tablet Start Date: 07/05/20 Status: Ordered Walker See Instructions, # 1 each, Maintenance, dx: osteoarthritis of the knee weight: 89.5 kg height: 5 foot 5 inches, 04/28/21 11:43:00 EDT, Supply Start Date: 04/28/21 Status: Ordered Problem List Condition Effective Dates [...] hysterectomy(Confirmed) 5 Active Hemithyroidectomy(Confirmed) 6 02/12/97 Active Hypertension(Confirmed) Active Hypothyroidism(Confirmed) Active Insomnia(Confirmed) Active Menopause(Confirmed) Active Mixed hyperlipidemia(Confirmed) Active Obese class I(Confirmed) Active Obesity(Confirmed) Active Obstructive sleep apnea(Confirmed) 7 12/27/17 Active OA (osteoarthritis) of knee(Confirmed) Active Osteopenia(Confirmed) 8, 9, 10, 11, 12, 13 08/09/06 Active *[id number] Care Partn er Dolorestaya Cabrera(Confirmed) Active Prurigo nodularis(Confirmed) 08/17/08 Active Renal insufficiency(Confirmed) Active Non-insulin dependent type 2 diabetes mellitus(Confirmed) 01/24/09 Active Varicose vein(Confirmed) Active Vitamin D deficiency(Confirmed) 07/26/08 Active 1CKD Stage III. 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
--- OUTSIDE RECORDS SUMMARY | 2024-07-06 12:03 | XMS_ITS | Continuity of Care Document ---
Author Organization [facility] Address [address] [place] [address]- Care Team Providers Care Kettleman Name Role Phone Marychuy MCCLAIN, Jessica Primary Care Physician Encounter [facility] Date(s): 02/26/20 - 03/27/20 [facility] [place] [address] [address]- [facility] Attending Physician: Admtr, Ar8 Allergies, Adverse Reactions, [...] Refills, Maintenance, 08/30/19 9:25:00 EST, ER Tablet, [facility] #[id number], 162.5, cm, 07/25/19 9:45:00 ES... Start Date: [...] cm, 11/03/19 18:19:00 EST, Height, 88, kg, 2... Start Date: 02/02/20 Status: Ordered aspirin 81 mg oral delayed release tablet 81 mg, 1, tablet, By Mouth, Daily, with food, # 90 tablet, Refills 3, Tot. Refills 3, Maintenance, 02/02/20 16:28:00 EDT, Route to Pharmacy Electronically, [facility] #[id number], 165, cm, 11/03/19 18:19:00 EST, Height, 88, kg, 11/03/19 18:19:00... Start Date: 02/02/20 Status: Ordered calcium (as citrate)-vitamin D 315 mg-250 intl units oral tablet 2 tablet, By Mouth, 2 times a day, Tej, # 360 tablet, 3 Refills, Maintenance, 02/02/20 16:28:00 EDT, Tablet, [facility] #[id number], 2 tablet By Mouth 2 times a day,x90 days,Instr:Tej, 165, cm, 11/03/19 18:19:00 EST, Height, 88, kg, 11/03/19 18... Start Date: 02/02/20 Stop Date: 01/27/21 Status: Ordered celecoxib 100 mg oral capsule 1 capsule = 100 mg, By Mouth, 2 times a day, PRN knee pain Discontinue topical diclofenac, # 60 capsule, 3 Refills, Maintenance, 02/26/20 12:58:00 EDT, Capsule, [facility] #[id number], 165, cm, 11/03/19 18:19:00 EST, Height, 88, kg, 11/03/19 18... Start Date: 02/26/20 Status: Ordered citalopram 20 mg oral tablet 20 mg, 1, tablet, By Mouth, Daily, # 90 tablet, Refills 3, Tot. Refills 3, Maintenance, 07/18/19 10:44:28 EST, Route to Pharmacy Electronically, [id number], [facility] #[id number], is awared of interaction w prilosec Start Date: 07/18/19 Status: Ordered Colace sodium 100 mg oral capsule 100 mg, 1, capsule, By Mouth, 2 times a day, PRN, with plenty of water, # 180 capsule, Refills 3, Tot. Refills 3, Maintenance, as needed for constipation, 08/30/19 9:25:00 EST, Route to Pharmacy Electronically, [facility] #[id number], 162.5, cm,... Start Date: 08/30/19 Status: Ordered [...] Gm, 11 Refills, Maintenance, 10/25/19 11:57:00 EST, [facility] #[id number], dispe... Start Date: 10/25/19 Status: Ordered hydrALAZINE [...] 3 Refills, Maintenance, 09/04/19 22:49:00 EST, Tablet, [facility] #[id number], 90 days, 1 tablet By Mouth Daily,Instr:discontinue HCTZ 12.5/lisnopril 20mg, 162.5, cm, 1... Start Date: 09/04/19 Status: Ordered Incruse Ellipta 62.5 mcg/inh inhalation powder = 62.5 mcg, Inhalation, Every 24 hours, doses should be taken at least 24 hours apart discontinue Tudorza, # 30 each, 11 Refills, Maintenance, 08/30/19 9:23:00 EST, [facility] #[id number], 162.5, cm, 07/25/19 9:45:00 EST, Height, 85.9, [...] tablet, 1 Refills, Maintenance, 12/18/19 13:45:00 EDT, [facility] #[id number], 165, cm, 11/03/19 18:19:00 EST, Height, 88, kg, 11/03/19 18:19:00 EST, Dry Weight Start Date: 12/18/19 Status: Ordered loratadine 10 mg oral tablet 10 mg, 1, tablet, By Mouth, Daily, PRN, # 90 tablet, Refills 3, Tot. Refills 3, Maintenance, as needed for allergy symptoms, 08/30/19 9:25:00 EST, Route to Pharmacy Electronically, [facility] #[id number], 162.5, cm, 07/25/19 9:45:00 EST, Height,... Start Date: 08/30/19 Status: Ordered metFORMIN 500 mg oral tablet 1 tablet = 500 mg, By Mouth, 2 times a day, discontinue metformin 1000mg, # 180 tablet, 1 Refills, Maintenance, 12/21/19 7:30:00 EDT, Tablet, [facility] #[id number], 165, cm, 11/03/19 18:19:00 EST, Height, 88, kg, 11/03/19 18:19:00 EST, Dry Weight Start Date: 12/21/19 Status: Ordered Dae-cpi-ehaks medical-grade oxford diabetic shoes, depth or hightop Tdj-lam-tzvtx medical-grade oxford diabetic shoes, depth or hightop, [...] 3 Refills, Maintenance, 08/30/19 9:25:00 EST, Tablet, [facility] #[id number], 162.5, cm, 07/25/19 9:45:00 EST, Height, 85.9, kg, 199:45:00 EST, Dry Weight Start Date: 08/30/19 Status: Ordered Premarin Vaginal 0.625 mg/gm cream with applicator = 0.5 Gm, Vaginally, Every Wednesday and , # 42.5 Gm, 11 Refills, Maintenance, 02/02/20 16:27:00 EDT, [facility] #[id number], discontinue estradiol 10mcg vaginal, 0.5 Gm Vaginally Every Wednesday and , 165, cm, 11/03/19 18:19:00 EST,... Start Date: 02/02/20 Status: Ordered PriLOSEC OTC 20 mg oral delayed release tablet 1 tablet = 20 mg, By Mouth, Daily, Take 30 mins before breakfast, # 90 tablet, 3 Refills, Maintenance, 02/02/20 16:28:00 EDT, [facility] #[id number], is awared of interaction with citalopram,165, cm, 11/03/19 18:19:00 EST, Height, 88, kg,... Start Date: 02/02/20 Status: Ordered Remeron 15 mg oral tablet 0.5 tablet = 7.5 mg, By Mouth, Daily at bedtime, # 45 tablet, 1 Refills, Maintenance, 12/18/19 13:45:00 EDT, Tablet, [facility] #[id number], 165, cm, 11/03/19 18:19:00 EST, Height, 88, [...] 06/28/19 7:33:11 EDT, Route to Pharmacy Electronically, [id number], [facility] #[id number] Start Date: 06/28/19 Status: Ordered Sinus rinse [...] 8.5 Gm, 5 Refills, Maintenance, 10/25/19 11:57:00 [facility][id number]... Start Date: 10/25/19 Status: Ordered Problem List Condition Effective Dates [...] 9, 10, 11, 12, 13 08/09/06 Active *[id number]-[facility] Partn isai Rossi(Confirmed) Active Prurigo nodularis(Confirmed) 08/17/08 Active Renal insufficiency(Confirmed) Active Non-insulin dependent type 2 diabetes mellitus(Confirmed) 01/24/09 Active Varicose vein(Confirmed) Active Vitamin D deficiency(Confirmed) 07/26/08 Active 1CKD Stage III. 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
--- OUTSIDE RECORDS SUMMARY | 2024-07-06 12:03 | XMS_ITS | Continuity of Care Document ---
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 Role Phone Marychuy MCCLAIN, Jessica Primary Care Physician Encounter [facility] Date(s): 01/26/24 - 02/25/24 [facility] [address] [place] [id number] Allergies, Adverse Reactions, Alerts Substance Reaction Severity [...] virus vaccine, inactivated 5 07/29/06 Gi javon [id number] 12y+ bivalent booster vax 03/24/23 Given [id number] 12y+ bivalent booster vax 07/28/22 Recorded SARS-CoV-2 mRNA ([id number]) vax 02/17/22 Given SARS-CoV-2 (COVID-19) mRNA BNT-162b2 [...] Refills, Maintenance, 01/19/24 8:32:00 EDT, ER Tablet, [facility] #[id number], Partial fill upon patient request if th... Start Date: 01/19/24 Status: Ordered Albuterol (Eqv-ProAir HFA) 90 mcg/inh inhalation aerosol 2 puffs, Inhalation, Every 6 hours, PRN Wheezing/Shortness of Breath, # 8.5 Gm, 5 Refills, Maintenance, 01/19/24 8:30:00 EDT, [facility] #[id number], If pump is not covered, it can [...] 01/19/24 8:40:00 EDT, Route to Pharmacy Electronically, [id number], [facility] #[id number], 165, cm, 01/19/24 7:55:00 EDT, Height, 85.... Start Date: 01/19/24 Status: Ordered calcium (as citrate)-vitamin D 315 mg-250 intl units oral tablet 2 tablet, By Mouth, 2 times a day, # 360 tablet, 3 Refills, Maintenance, 03/18/24 10:33:00 EDT, [facility] #[id number], 2 tablet By Mouth 2 times a [...] Stop 03/18/24 10:33:00 EDT, 03/24/23 10:33:00 EDT, [facility] #[id number], 160, cm, 03/24/23 10:19:00 EDT, Height, 89.54, kg, 02/09/23 16:45:00 EDT, Dry Weight Start Date: 03/24/23 Stop Date: 03/18/24 Status: Ordered ciclopirox 8% topical solution 1 application, Topically, Daily, as directed to affected area toenails, # 6.6 mL, 11 Refills, Maintenance, 01/19/24 9:20:00 EDT, Solution, [facility] #[id number], ., 1 application Topically Daily,Instr:as directed; to affected area toenails, 165... Start Date: 01/19/24 Status: Ordered Clarinex 5 mg oral tablet 1 tablet = 5 mg, By Mouth, Daily, # 90 tablet, 3 Refills, Maintenance, 03/18/24 10:23:00 EDT, Tablet, [facility] #[id number], 165, cm, 01/19/24 7:55:00 EDT, Height, 85.45, kg, 12/23/23 9:04:00 EDT, Dry Weight Start Date: 03/18/24 Stop Date: 03/13/25 Status: Ordered Clarinex 5 mg oral tablet 1 tablet = 5 mg, By Mouth, Daily, for 90 days, # 90 tablet, 3 Refills, Hard Stop 03/18/24 10:23:00 EDT, 03/24/23 10:23:00 EDT, Tablet, [facility] #[id number], 160, cm, 03/24/23 10:19:00 EDT, Height, 89.54, [...] 11 Refills, Maintenance, 01/19/24 8:42:00 EDT, Gel, [facility] #[id number], ., 165, cm, 01/19/24 7:55:00 EDT, Height, 85.45, kg, 12/23/23 9:04:00 EDT,Dry Weight Start Date: 01/19/24 Stop Date: 07/05/24 Status: Ordered Eliquis 5 mg oral tablet 1 tablet, By Mouth, 2 times a day, # 180 tablet, 3 Refills, Maintenance, 01/19/24 9:20:00 EDT, [facility] #[id number], 165, cm, 01/19/24 7:55:00 EDT, Height, 85.45, kg, 12/23/23 9:04:00 EDT, DryWeight Start Date: 01/19/24 Status: Ordered EPINEPHrine 0.3 mg injectable solution = 0.3 mg, Intramuscular, Once, PRN Anaphylactic Reaction, # 1 each, 0 Refills, Soft Stop, 10/22/21 10:11:00 EST, [facility] #[id number], 165, cm, 10/22/21 9:05:00 EST, Height, 89.5, kg, 04/23/2121:43:00 EDT, Dry Weight Start Date: 10/22/21 Status: Ordered escitalopram 10 mg oral tablet 1 tablet = 10 mg, By Mouth, Daily, discontinue citalopram, # 30 tablet, 11 Refills, Maintenance, 01/19/24 8:34:00 EDT, Tablet, [facility] #[id number], Partial fill upon patient request if the prescription is for a schedule II opioid drug., 165, c... Start Date: 01/19/24 Status: Ordered fluticasone 50 mcg/inh nasal spray 2 sprays, Nares, Both, Daily, Use every day during allergy season. While using spray keep head down., # 3 each, 3 Refills, Maintenance, 03/18/24 10:28:00 EDT, [facility] #[id number], ., 2 spraysNares, Both Daily,x90 days,Instr:Use every day duri... Start Date: 03/18/24 Stop Date: 03/13/25 Status: Ordered formoterol 10 mcg/mL inhalation solution See Instructions, USE 2 ML VIA NEBULIZER TWICE DAILY USING A CONTINUOUS FLOW VIA NEBULIZER, # 120 mL, 11 Refills, Maintenance, 01/19/24 8:40:00 EDT, [facility] #[id number], 165, cm, 01/19/24 7:55:00 EDT, Height, 85.45, [...] ARNOLD Almaraz. Start Date: 01/19/24 Status: Ordered Juxtafit Knee-high Compression Garments(bilateral, left, right) with 2 pairs of liners Juxtafit Knee-high Compression Garments(bilateral, left, right) with 2 pairs of liners, See Instructions, # 1 kit, Refills 0, Tot. Refills 0, Maintenance, as directed, 02/15/24 9:00:00 EDT, Supply Start Date: 02/15/24 Status: Ordered Lancets See Instructions, # 50 [...] tablet, 3 Refills, Maintenance, 03/18/24 10:31:00 EDT, [facility] #[id number], 165, cm, 01/19/24 7:55:00 EDT, Height, 85.45, kg, 12/23/23 9:04:00 EDT, Dry Weight Start Date: 03/18/24 Stop Date: 03/13/25 Status: Ordered levothyroxine 0.05 mg oral tablet 1 tablet, By Mouth, Daily, for 90 days, # 90 tablet, 3 Refills, Hard Stop 03/18/24 10:31:00 EDT, 03/24/23 10:31:00 EDT, [facility] #[id number], 160, cm, 03/24/23 10:19:00 EDT, Height, 89.54, kg,02/09/23 16:45:00 EDT, Dry Weight Start Date: 03/24/23 Stop Date: 03/18/24 Status: Ordered lisinopril 40 mg oral tablet 1 tablet = 40 mg, By Mouth, Daily in AM, 11 AM Decreased dose, # 90 tablet, 3 Refills, Maintenance,03/18/24 10:12:00 EDT, Tablet, [facility] #[id number], 165, cm, 01/19/24 7:55:00 EDT, Height, 85.45, kg, 12/23/23 9:04:00 EDT, Dry Weight Start Date: 03/18/24 Stop Date: 03/13/25 Status: Ordered lisinopril 40 mg oral tablet 1 tablet = 40 mg, By Mouth, Daily in AM, for 90 days, 11 AM Decreased dose, # 90 tablet, 3 Refills,Hard Stop 03/18/24 10:12:00 EDT, 03/24/23 10:12:00 EDT, Tablet, [facility] #[id number], 160, cm, 03/24/23 9:26:00 EDT, Height, 89.54, kg, ... Start Date: 03/24/23 Stop Date: 03/18/24 Status: Ordered Matzim LA 180 mg/24 hours oral tablet, extended release 1 tablet = 180 mg, By Mouth, Daily in AM, Take at 11 AM, # 90 tablet, 3 Refills, Maintenance, 03/18/24 9:58:00 EDT, ER Tablet, [facility] #[id number], 165, cm, 01/19/24 7:55:00 EDT, Height, 85.45, [...] 9:58:00 EDT, 03/24/23 9:58:00 EDT, ER Tablet, [facility] #[id number], 160, cm, 03/24/23 9:26:00 EDT, H... Start Date: 03/24/23 Stop Date: 03/18/24 Status: Ordered MetFORMIN (Eqv-Glucophage XR) 500 mg oral tablet, extended release 1 tablet, By Mouth, 2 times a day with meals, INCREASE DOSE, # 180 tablet, 3 Refills, Maintenance, 12/22/23 16:13:00 EDT, [facility] #[id number], 165, cm, 12/20/23 5:43:00 EDT, Height, 84.5, kg,12/19/23 17:15:00 EDT, Dry Weight Start Date: 12/22/23 Status: Ordered metoprolol 25 mg oral tablet, extended release 25 mg, 1, tablet, By Mouth, Daily, # 30 tablet, Refills 11, Tot. Refills 11, Maintenance, 01/19/24 8:40:00 EDT, Route to Pharmacy Electronically, [facility] #[id number], 165, cm, 01/19/24 7:55:00 EDT, Height, 85.45, kg, 12/23/23 9:04:00 EDT, Dry... Start Date: 01/19/24 Status: Ordered mirtazapine 15 mg oral tablet 0.5 tablet, By Mouth, Daily at bedtime, # 45 tablet, 3 Refills, Maintenance, 03/18/24 10:22:00 EDT,[facility] #[id number], 165, cm, 01/19/24 7:55:00 EDT, Height, 85.45, kg, 12/23/23 9:04:00 EDT, Dry Weight Start Date: 03/18/24 Stop Date: 03/13/25 Status: Ordered mirtazapine 15 mg oral tablet 0.5 tablet, By Mouth, Daily at bedtime, for 90 days, # 45 tablet, 3 Refills, Hard Stop 03/18/24 10:22:00 EDT, 03/24/23 10:22:00 EDT, [facility] #[id number], 160, cm, 03/24/23 10:19:00 EDT, Height, 89.54, kg, 02/09/23 16:45:00 EDT, Dry Weight Start Date: 03/24/23 Stop Date: 03/18/24 Status: Ordered montelukast 10 mg oral tablet 1, tablet, By Mouth, Daily at bedtime, SUPPLY., # 90 tablet, Refills 3, Tot. Refills 3, Maintenance, 06/05/23 14:50:00 EDT, Route to Pharmacy Electronically, [facility] #[id number], 160, cm, 03/24/23 10:19:00 EDT, Height, 89.54, kg, 02/09/23 16:4... Start Date: 06/05/23 Status: Ordered Nucala Prefilled Autoinjector 100 mg/mL subcutaneous solution = 100 mg, Subcutaneous Infusion, Every 28 days, j45.40, # 1 each, 11 Refills, Maintenance, 01/12/2414:58:00 EDT, [facility], Partial fill upon patient request if the prescription isfor a schedule II opioid drug., 165, cm, 01/04/24 1... Start Date: 01/13/24 Status: Ordered Pli-epe-aqccp medical-grade oxford diabetic shoes, depth or hightop Cxe-sfl-mdbvl medical-grade oxford diabetic shoes, depth or hightop, [...] capsule, 3 Refills, Maintenance, 03/18/24 10:28:00 EDT, [facility] #[id number], 165, cm, 01/19/24 7:55:00 EDT, Height, 85.45, kg, 12/23/23 9:04:00 EDT, Dry Weight Start Date: 03/18/24 Stop Date: 03/13/25 Status: Ordered omeprazole 20 mg oral enteric coated capsule 1 capsule = 20 mg, By Mouth, Daily, for 90 days, 30 minutes before breakfast MD is aware of interaction with citalopram, # 90 capsule, 3 Refills, Hard Stop 03/18/24 10:28:00 EDT, 03/24/23 10:28:00 EDT, [facility] #[id number], 160, cm, 03/24/23 1... Start Date: 03/24/23 Stop Date: 03/18/24 Status: Ordered pravastatin 80 mg oral tablet 1 tablet, By Mouth, Daily, # 90 tablet, 3 Refills, Maintenance, 03/24/23 10:32:00 EDT, [facility] #[id number], 160, cm, 03/24/23 10:19:00 EDT, Height, 89.54, kg, 02/09/23 16:45:00 EDT, Dry Weight Start Date: 03/24/23 Stop Date: 03/18/24 Status: Ordered Premarin Vaginal 0.625 mg/gm cream with applicator See Instructions, APPLY 1/2 GRAM IN THE VAGINA EVERY WEDNESDAY AND WEDNESDAY, # 30 Gm, 11 Refills, Maintenance, 01/19/24 9:20:00 EDT, [facility] #[id number], 30, APPLY 1/2 GRAM IN THE VAGINA [...] in AM, at 11 AM Given by press writer, Dr. Indio Mason, # 30 tablet, Refills [...] EDT, Height,... Start Date: 01/19/24 Status: Ordered triamcinolone 0.025% topical cream 1 application, Topically, 3 times a day, PRN itching Apply to lower extremities [place], # 30 Gm, 2Refills, Maintenance, 02/23/24 8:27:00 EDT, [facility] #[id number], 1 application Topically 3 times a day,Instr:PRN itching ; Apply to lower e... Start Date: 02/23/24 Status: Ordered Wixela Inhub 100 mcg-50 mcg inhalation powder 1 inhalation, Inhalation, 2 times a day, J45..0rinse mouth and throat after use, # 1 each, 5 Refills, Maintenance, 01/26/24 9:28:00 EDT, Powder, [facility] #[id number], Partial fill upon patientrequest if the prescription is for a schedule II op... Start Date: 01/26/24 Status: Ordered Problem List Condition Confirmation Course [...] 5, 6, 7, 8 Confirmed 08/09/06 Active *[phone] Transition Advisor Michelle Cain Confirmed Active Varicose vein Confirmed [...] Team Personnel Name: Haley Gonzalez RN Position: [facility] RN Member Role: Primary Care Nurse Name: Jessica Perrin MD Position: [facility] Physician - Primary Care Member Role: PCP Address: Address: [address] [place] [address]- Care Team Related Persons Name: SANDY BOYCE Address: [address] [place] [address] Name: COLT BOYCE Address: [address] [place] [address]
--- OUTSIDE RECORDS SUMMARY | 2024-07-06 12:03 | XMS_ITS | Continuity of Care Document ---
Author Organization [facility] Address [address] [place] [address]- Care Team Providers Care Conservation Officer Name Role Phone Marychuy MCCLAIN, Jessica Primary Care Physician Encounter [facility] Date(s): 12/19/23 - 12/20/[address] [address]- Discharge Disposition: A-D/C Home Attending Physician: Torrey Wilder MD Admitting Physician: Liza Neville MD Referring Physician: Trudy Rios MD Allergies, Adverse Reactions, Alerts Substance Reaction [...] virus vaccine, inactivated 5 07/29/06 Gi javon [id number] 12y+ bivalent booster vax 03/24/23 Given [id number] 12y+ bivalent booster vax 07/28/22 Recorded SARS-CoV-2 mRNA (vcgicpx-myoq-diocm) vax 02/17/22 Given SARS-CoV-2 (COVID-19) mRNA BNT-162b2 [...] tablet, 11 Refills, Maintenance, 03/24/23 10:28:00 EDT, [facility] #[id number], 160, cm, 03/24/23 10:19:00 EDT, Height, 89.54, kg, 0... Start Date: 03/24/23 Status: Ordered albuterol 0.083% inhalation solution 3 mL = 2.5 mg, Inhalation, Every 6 hours, # 25 each, 5 Refills, Maintenance, 08/12/22 15:02:00 EST,[facility] #[id number], 165, cm, 06/18/22 13:19:00 EDT, Height, 88.9, [...] times a day, # 120 mL, Refills 0, Maintenance, 11/25/23 10:58:00 EDT, Route toPharmacy Electronically, [id number], [facility] #[id number], 160, cm, 03/24/23 10:19:00 EDT, Height, 89.54, kg, 02/09/23... Start Date: 11/25/23 Status: Ordered calcium (as citrate)-vitamin D 315 mg-250 intl units oral tablet 2 tablet, By Mouth, 2 times a day, # 360 tablet, 3 Refills, Maintenance, 03/24/23 10:33:00 EDT, [facility] #[id number], 2 tablet By Mouth 2 times a day,x90 days, 160, cm, 03/24/23 10:19:00 EDT, Height, 89.54, kg, 02/09/23 16:45:00 EDT, Dry Weight Start Date: 03/24/23 Stop Date: 03/18/24 Status: Ordered ciclopirox 8% topical solution 1 application, Topically, Daily, as directed to affected area toenails, # 6.6 mL, 11 Refills, Maintenance, 03/24/23 10:42:00 EDT, Solution, [facility] #[id number], ., 1 application Topically Daily,Instr:as directed; to affected area toenails, 16... Start Date: 03/24/23 Status: Ordered citalopram 20 mg oral tablet 20 mg, 1, tablet, By Mouth, Daily, # 90 tablet, Refills 3, Tot. Refills 3, Maintenance, 03/24/23 10:23:00 EDT, Route to Pharmacy Electronically, [facility] #[id number], is awared of interaction w prilosec, 160, cm, 03/24/23 10:19:00 EDT, He... Start Date: 03/24/23 Status: Ordered Clarinex 5 mg oral tablet 1 tablet = 5 mg, By Mouth, Daily, # 90 tablet, 3 Refills, Maintenance, 03/24/23 10:23:00 EDT, Tablet, [facility] #[id number], 160, cm, 03/24/23 10:19:00 EDT, Height, 89.54, kg, 02/09/23 16:45:00EDT, Dry Weight Start Date: 03/24/23 Stop Date: 03/18/24 Status: Ordered Compression- Lower Extremity (Knee High) See Instructions, # 2 each, Refills 11, Tot. Refills 11, Maintenance, use daily; closed toes; 15-20mmHg. Dx peripheral vascular insufficiency I 87.2, 03/24/23 10:24:00 EDT, Compound Start Date: 03/24/23 Status: Ordered diltiazem 180 mg/24 hours oral capsule, extended release 180 mg, CD Capsule, By Mouth, 12/20/23 9:00:00 EDT Start Date: 12/20/23 Stop Date: 12/20/23 Status: Completed Eliquis 5 mg oral tablet 1 tablet, By Mouth, 2 times a day, # 180 tablet, 3 Refills, Maintenance, 03/24/23 10:04:00 EDT, [facility] #[id number], 160, cm, 03/24/23 9:26:00 EDT, Height, 89.54, kg, 02/09/23 16:45:00 EDT, Dry Weight Start Date: 03/24/23 Status: Ordered EPINEPHrine 0.3 mg injectable solution = 0.3 mg, Intramuscular, Once, PRN Anaphylactic Reaction, # 1 each, 0 Refills, Soft Stop, 10/22/21 10:11:00 [facility], [facility] #[id number], 165, cm, 10/22/21 9:05:00 EST, Height, 89.5, kg, 04/23/2121:43:00 EDT, Dry Weight Start Date: 10/22/21 Status: Ordered fluticasone 50 mcg/inh nasal spray 2 sprays, Nares, Both, Daily, Use every day during allergy season. While using spray keep head down., # 3 each, 3 Refills, Maintenance, 03/24/23 10:28:00 EDT, [facility] #[id number], ., 2 spraysNares, Both Daily,x90 days,Instr:Use every day duri... Start Date: 03/24/23 Stop Date: 03/18/24 Status: Ordered formoterol 10 mcg/mL inhalation solution See Instructions, USE 2 ML VIA NEBULIZER TWICE DAILY USING A CONTINUOUS FLOW VIA NEBULIZER, # 120 mL, 0 Refills, Maintenance, 11/16/23 9:56:00 [facility], [facility] #[id number], 160, cm, 03/24/23 10:19:00 EDT, Height, 89.54, kg, 02/09/23 16:45:00 EDT,... Start Date: 11/16/23 Status: Ordered Glucose Monitor See Instructions, # [...] Replace Required Details, Route to Pharmacy Electronically, [facility]... Start Date: 03/24/23 Status: Ordered hydrALAZINE 25 mg oral tablet 25 mg, Tablet, By Mouth, 12/20/23 13:00:00 EDT Start Date: 12/20/23 Stop Date: 12/20/23 Status: Completed Lancets See Instructions, # 50 each, Refills 11, Tot. Refills 11, Maintenance, use daily for blood sugar testing once a day Dx DM type 2 E11.9 One Touch Deljennifer, DM type 2, 03/24/23 9:56:00 EDT, Compound, 160, cm, 03/24/23 9:26:00 EDT, Height, 89.54, kg, 05... Start Date: 03/24/23 Status: Ordered levothyroxine 0.05 mg oral tablet 1 tablet, By Mouth, Daily, # 90 tablet, 3 Refills, Maintenance, 03/24/23 10:31:00 EDT, [facility] #[id number], 160, cm, 03/24/23 10:19:00 EDT, Height, 89.54, kg, 02/09/23 16:45:00 EDT, Dry Weight Start Date: 03/24/23 Stop Date: 03/18/24 Status: Ordered lisinopril 20 mg oral tablet 40 mg, Tablet, By Mouth, 12/20/23 11:00:00 EDT Start Date: 12/20/23 Stop Date: 12/20/23 Status: Completed lisinopril 40 mg oral tablet 1 tablet = 40 mg, By Mouth, Daily in AM, 11 AM Decreased dose, # 90 tablet, 3 Refills, Maintenance,03/24/23 10:12:00 EDT, Tablet, [facility] #[id number], 160, cm, 03/24/23 9:26:00 EDT, Height, 89.54, kg, 02/09/23 16:45:00 EDT, Dry Weight Start Date: 03/24/23 Stop Date: 03/18/24 Status: Ordered Matzim LA 180 mg/24 hours oral tablet, extended release 1 tablet = 180 mg, By Mouth, Daily in AM, Discontinue diltiazem 360 mg Takes at 11 AM, # 90 tablet,3 Refills, Maintenance, 03/24/23 9:58:00 EDT, ER Tablet, [facility] #[id number], 160, cm, 03/24/23 9:26:00 EDT, Height, 89.54, kg, 02/09/23 16:45... Start Date: 03/24/23 Stop Date: 03/18/24 Status: Ordered metFORMIN 500 mg oral tablet, extended release 1 tablet = 500 mg, By Mouth, 2 times a day, with meal Increase dose, # 180 tablet, 3 Refills, Maintenance, 03/24/23 10:19:00 EDT, ER Tablet, [facility] #[id number], 160, cm, 03/24/23 10:19:00 EDT, Height, 89.54, kg, 02/09/23 16:45:00 EDT, Dry W... Start Date: 03/24/23 Stop Date: 03/18/24 Status: Ordered mirtazapine 15 mg oral tablet 0.5 tablet, By Mouth, Daily at bedtime, # 45 tablet, 3 Refills, Maintenance, 03/24/23 10:22:00 EDT,[facility] #[id number], 160, cm, 03/24/23 10:19:00 EDT, Height, 89.54, kg, 02/09/23 16:45:00 EDT, Dry Weight Start Date: 03/24/23 Stop Date: 03/18/24 Status: Ordered montelukast 10 mg oral tablet 1, tablet, By Mouth, Daily at bedtime, SUPPLY., # 90 tablet, Refills 3, Tot. Refills 3, Maintenance, 06/05/23 14:50:00 EDT, Route to Pharmacy Electronically, [facility] #[id number], 160, cm, 03/24/23 10:19:00 EDT, Height, 89.54, kg, 02/09/23 16:4... Start Date: 06/05/23 Status: Ordered Xqp-pcy-bhjaf medical-grade oxford diabetic shoes, depth or hightop Gvy-uol-ozbzg medical-grade oxford diabetic shoes, depth or hightop, [...] capsule, 3 Refills, Maintenance, 03/24/23 10:28:00 EDT, [facility] #[id number], 160, cm, 03/24/23 10:19:00 EDT, Height, 89.54, kg, 0... Start Date: 03/24/23 Stop Date: 03/18/24 Status: Ordered pravastatin 80 mg oral tablet 1 tablet, By Mouth, Daily, # 90 tablet, 3 Refills, Maintenance, 03/24/23 10:32:00 EDT, [facility] #[id number], 160, cm, 03/24/23 10:19:00 EDT, Height, 89.54, kg, 02/09/23 16:45:00 EDT, Dry Weight Start Date: 03/24/23 Stop Date: 03/18/24 Status: Ordered Premarin Vaginal 0.625 mg/gm cream with applicator See Instructions, APPLY 1/2 GRAM IN THE VAGINA EVERY WEDNESDAY AND WEDNESDAY, # 30 Gm, 11 Refills, Maintenance, 03/24/23 10:23:00 EDT, [facility] #[id number], 30, APPLY 1/2 GRAM IN THE VAGINA EVERY WEDNESDAY AND WEDNESDAY, 160, cm, 03/24/23 10:19:00 EDT,... Start Date: 03/24/23 Status: Ordered ProAir HFA 90 mcg/inh inhalation aerosol with adapter 2, puffs, Inhalation, 4 times a day, PRN, Fill when patient request it, # 1 each, Refills 5, Tot. Refills 5, Maintenance, 03/24/23 10:30:00 EDT, Route to Pharmacy Electronically, [id number], [facility] #[id number], 160,... Start Date: 03/24/23 Status: Ordered Shoes [...] in AM, at 11 AM Given by event host, Dr. Indio Mason, # 30 tablet, Refills [...] day, PRN itching Apply to lower extremities Faroese, # 30 Gm, 2Refills, Maintenance, 03/24/23 10:34:00 EDT, [facility] #[id number], 1 application Topically 3times a day,Instr:PRN itching [...] 5, 6, 7, 8 Confirmed 08/09/06 Active *[phone] Managed Care Coordinator Michelle Cain Confirmed Active Varicose vein Confirmed [...] femoral neck 0, normal proximal femur 0.8 Results Radiology Reports * Exam Date Time Procedure Performing Provider Status 12/19/23 9:51 AM Chest 2 Views Frontal and Lat Arina Carter; Bora (Verified) Notes: (Chest 2 Views Frontal and Lat) Reason For Exam: SOB;Cough RESULT: Chest 2 Views Frontal and Lat Chest 2 Views Frontal and Lat Hx of Present Illness: c o worsening SOB and cough. hx asthma, using neb inhaler with minimal relief. denies fever chills. +fatigue and CP with cough; Reason: Cough; SOB; Clinical Question(s): Pneumonia; Special Instructions: This is a protocol film and radiologist should call any findings to the Charge Nurse or appropriate provider COMPARISON: 02/09/2022. FINDINGS: LINES AND TUBES: None. LUNGS AND PLEURA: Clear lungs. Normal pulmonary vascularity. No pleural effusion. No pneumothorax. HEART, MEDIASTINUM AND STERLING: Heart is normal in size. Normal mediastinal and hilar contour. BONES AND SOFT TISSUES: No acute abnormality. There is multilevel degenerative endplate spurring. IMPRESSION: No acute abnormality. WSN: [id number] Ordering Physician: Abdirahman Duffy Dictated By: Breann Husain MD Dictated Date/Time: 12/19/23 10:15 a Reviewed By: Breann Husain MD Signed By: Breann Husain MD Signed Date/Time: 12/19/23 10:15 am Transcribed By: SAJAN Transcribed Date/Time: 12/19/23 10:14 am Vital Signs Most recent to oldest [Reference Range]: 1 2 3 Height 165 cm (12/20/23 5:43 AM) 165 cm (12/19/23 7:34 PM) 165 cm (12/19/23 5:15 PM) Weight 87.2 kg (12/19/23 5:15 PM) 88.2 kg (12/19/23 2:27 PM) 88.2 kg (12/19/23 9:25 AM) Oxygen Saturation [94-100 %] 92 % *L* (12/20/23 11:00 AM) 91 % *L* (12/20/23 8:00 AM) 92 % *L* (12/20/23 5:43 AM) Pulse Rate [55-90 bpm] 86 bpm (12/20/23 11:00 AM) 102 bpm *H* (12/20/23 8:56 AM) 97 bpm *H* (12/20/23 8:00 AM) Body Mass Index [18.5-24.99 kg/m2] 32.03 kg/m2 *>HHI* (12/19/23 5:15 PM) 32.4 kg/m2 *>HHI* (12/19/23 2:27 PM) Blood Pressure [90-138/55-84 mm Hg] 129/64mm Hg (12/20/23 12:18 PM) 129/64mm Hg (12/20/23 12:18 PM) 113/59mm Hg (12/20/23 11:00 AM) Respiratory Rate [16-30 br/min] 18 br/min (12/20/23 8:00 AM) 18 br/min (12/20/23 5:43 AM) 15 br/min *L* (12/19/23 7:34 PM) Temperature [96.8-100.4 DegF] 98.2 DegF (12/20/23 11:00 AM) 98.5 DegF (12/20/23 8:00 AM) 98 DegF (12/20/23 5:43 AM) Liters per Minute 4 L/min (12/19/23 7:34 PM) Mode of Delivery (Oxygen) Room air (12/20/23 11:00 AM) Room air (12/20/23 8:00 AM) Room air (12/20/23 5:43 AM) Blood pressure sites Arm, left (12/20/23 11:00 AM) Arm, right (12/20/23 8:00 AM) Arm, left (12/20/23 5:43 AM) Temperature Route Oral (12/20/23 11:00 AM) Oral (12/20/23 8:00 AM) Oral (12/20/23 5:43 AM) Dry Weight 84.5 kg (12/19/23 5:15 PM) 87.2 kg (12/19/23 4:52 PM) 88.2 kg (12/19/23 2:27 PM) Weight Obtained Via Standing scale (12/19/23 5:15 PM) Dry Weight Obtained Via Patient/family s tated (12/19/23 5:15 PM) Standing scale (12/19/23 4:52 PM) Standing scale (12/19/23 9:25 AM) Social History Social History Type Response Smoking Status Never (less than 100 in lifetime) entered on: 03/24/23 Sex History and physical note * Bethany Lott: PERFORM Event Display: History and Physical Hospital Authored Date: Patient: ??KRUNAL ALVARENGA ? Age:??78 Years?Sex:??Female?:??1945?? Chief Complaint/Reason for Consultation sob History of Present Illness This is a 78 year old female with history of asthma, HTN, T2DM, DVT on eliquis, anxiety and depression, LILA not on CPAP, hypothyroidism who presents with shortness of breath. She is Faroese speaking??and her??daughter translates at her request.??She started to feel unwell with cold like symptoms 2-3 days ago with nasal congestion, cough.?? Her son was sick with similar symptoms.?? She was taking cszt-glz-hcytxcy cough medicine.?? Over the last 24 hours her symptoms have become more severe and now she is short of breath and wheezing and needing her inhaler and nebulizer.?? She tried??both her inhaler and her nebulizer this morning and had very limited relief of her symptoms therefore comes to the ER.?? She has no worsening leg swelling or chest pains, fevers or chills. ?? In the ER she has mild tachycardia, saturating on room air with a normal white count and negative COVID flu RSV testing.?? Her chest x-ray is clear.?? She was given multiple nebulized treatments [facility] and Solu-Medrol and is admitted for asthma exacerbation. Review of Systems Full ROS completed and is negative or as otherwise mentioned in the HPI. Objective Measurements?? Height: 165 cm (12/19/23) Weight: 88.2 kg (12/19/23) Dry Weight: 88.2 kg (12/19/23) Body Mass Index:??32.4 kg/m2??Critical (12/19/23) ? Vital Signs?? Temperature: 98.2 DegF (12/19/23 14:27:00) Temperature Route: Temporal (12/19/23 14:27:00) Pulse Rate:??114 bpm??High (12/19/23 14:27:00) Respiratory Rate: 23 br/min (12/19/23 14:27:00) Systolic Blood Pressure: 133 mm Hg (12/19/23 14:27:00) Diastolic Blood Pressure: 61 mm Hg (12/19/23 14:27:00) Blood pressure sites: Arm, left (12/19/23 14:27:00) Mean Arterial Pressure: 85 mm Hg (12/19/23 14:27:00) Pulse Pressure: 72 mm Hg (12/19/23 14:27:00) Oxygen Saturation: 94 % (12/19/23 14:27:00) Mode of Delivery (Oxygen): Room air (12/19/23 14:27:00) ? Physical Exam ?General NAD, pleasant, speaking in full sentences mild tachypnea with prolonged speaking?HEENT??Moist mucous membranes, ooropharynx clear without erythema or exudate?Lung diffuse expiratory wheezing, wet cough, no appreciable rales/rhonchi ?Heart??tachycardic rate regular rhythm, no murmurs, gallops, or rubs?Abdomen soft, obese, non-tender, non-distended, bowel sounds present?Extremities?? no clubbing, no cyanosis,??no pedal edema or unilateral leg swelling, peripheral pulses intact. ?Neurologic??Alert & oriented x 3, moving all extremities, no gross focal deficits?Skin??warm and dry.? Psychiatry appropriate mood and affect?? Assessment/Plan Assessment:??This is a 78 year old female with history of asthma, HTN, T2DM, DVT on eliquis, anxiety and depression, LILA not on CPAP, hypothyroidism who presents with shortness of breath. ?? Asthma with acute exacerbation (J45.901):?? wheezing refractory to home inhalers in setting of URI symptoms, sick contacts. COVID/Flu/RSV negative and CXR clear continue scheduled nebs QID PRN albuterol updrafts monitor O2 and supplement if needed continue with solumedrol (has documented steroid allergy but tolerated today and time before today without reaction) supportive care ?? Sinus tachycardia (R00.0):?? likely d/t back to back nebs and work of breathing at one point it looked like she may have been in a flutter rhythm, so will monitor on telemetry (already on dilt, eliquis) check TSH 500 cc IVF ?? Diabetes mellitus type 2 (E11.9):??holding oral agents poc checks, lispro ss ?? History of DVT in adulthood (Z86.718):??on eliquis ?? Hypothyroidism (E03.9):??continue levothyroxine ?? Hypertension (I10):??continue home meds which include hydralazine, diltiazem, spironolactone, lisinopril ?? Mixed hyperlipidemia (E78.2):??continue statain ?? Anxiety disorder (F41.9):??continue citalopram ?? Obstructive sleep apnea (G47.33):??not using CPAP ?? VTE Prophylaxis:??eliquis ?VTE Prophylaxis Assessment:??VTE Prophylaxis Ordered Code Status:??full ?Order Code Status:??Code Status Ordered Ongoing Medical Necessity:??asthma exacerbation Discharge Planning:??pending improvement ?? Histories Allergies Allergies ?(Active and Proposed Allergies Only) dexamethasone? (Severity: Persistent Mild, Onset: Unknown) ?Reactions: Swelling of throat ? 10-DEC-2015 19:14:30<$> predniSONE? (Severity: Persistent Severe, Onset: 11/11/2011) ?Reactions: Itchy skin eruption ?Comments: Not associated with swelling nor shortness of breath tramadol? (Severity: Persistent Mild, Onset: 01/27/2008) ?Reactions: Itch ? Past Medical History/Problem List Active Problems(19) *[phone] Managed Care Coordinator Michelle Cain Allergic rhinitis Anxiety disorder Atrophic vaginitis Chronic anticoagulation secondary to unprovoked DVT Depression Diabetes mellitus type 2 Diabetic neuropathy Diabetic peripheral angiopathy History of DVT in adulthood Hypertension Hypothyroidism Insomnia Mixed hyperlipidemia OA (osteoarthritis) of knee Obese class I Obstructive sleep apnea Osteopenia Varicose vein ? Past Surgical History Colonoscopy: 03/15/18 Laparoscopic assisted vaginal hysterectomy with repair of cystocele: 2013 Laparoscopy, surgical; cholecystectomy R tallus intrathecal injection ? Social History Alcohol Details:??Use: Never. Home/Environment Details:??Feels unsafe at home: No. Details:??Living situation: Home/Independent. ??Lives with: Alone. ??Feels unsafe at home: No. ??Safe place to go: Yes. ??Injuries/Abuse/Neglect in household: No. ??Domestic violence in household: No. ??Alcohol in household: No. ??Firearms in household: No. ??Substance abuse in household: No. ??Smoker in household: No. ??Major illness in household: No. ??Risks in environment: Pool/Hurt, Stairs, doesn't know how to swim well. Substance Abuse Details:??Use: Never. Tobacco Details:??Use: Never (less than 100 in lifetime). Details:??Never smoker ? Family History No Family History documented. ? Medications Home Medications Acetaminophen (acetaminophen 500 mg oral tablet)?2?tab(s)?1,000?Milligram?By Mouth?Every 6 hours?as needed?as needed for pain or fever?(not to exceed 3000 mg/day) Albuterol (albuterol 0.083% inhalation solution)?3?Milliliter?2.5?Milligram?Inhalation?Every 6 hours?for 30?Days Albuterol (ProAir HFA 90 mcg/inh inhalation aerosol with adapter)?2?puff(s)?Inhalation?4 times a day?as needed?Fill when ??patient request it?Wheezing/Shortness of Breath apixaban (Eliquis 5 mg oral tablet)?1?tab(s)?By Mouth?2 times a day Budesonide (budesonide 0.5 mg/2 mL inhalation suspension)?Inhalation?2 times a day Calcium And Vitamin D Combination (calcium (as citrate)-vitamin D 315 mg-250 intl units oral tablet)?2?tab(s)?By Mouth?2 times a day?for 90?Days Ciclopirox Topical (ciclopirox 8% topical solution)?1?kristy?Topically?Daily?as directedto affected area toenails Citalopram (citalopram 20 mg oral tablet)?20?Milligram?1?tablet?By Mouth?Daily Conjugated Estrogens Topical (Premarin Vaginal 0.625 mg/gm cream with applicator)?See Instructions?APPLY 1/2 GRAM IN THE VAGINA EVERY WEDNESDAY AND WEDNESDAY Desloratadine (Clarinex 5 mg oral tablet)?1?tab(s)?5?Milligram?By Mouth?Daily?for 90?Days Diltiazem (Matzim LA 180 mg/24 hours oral tablet, extended release)?1?tab(s)?180?Milligram?By Mouth?Daily in AM?for 90?Days?Discontinue diltiazem 360 mgTakes at 11 AM Durable Medical Equipment (Glucose Monitor)?See Instructions?use to test blood sugar as directed; ??One ??Touch Ultra 2 Dx ??DM ??type ??2 Durable Medical Equipment (Alcohol Wipes)?See Instructions?use daily ??for blood sugar testing once ??a day Dx ??DM type 2 E11.9 Durable Medical Equipment (Lancets)?See Instructions?use daily for blood sugar testing once ??a day Dx ??DM type 2 E11.9One Touch Delica Durable Medical Equipment (Test Strips)?See Instructions?use daily for blood sugar testing once ??a day Dx ??DM type 2 E11.9One Touch Ultra Durable Medical Equipment (Compression- Lower Extremity (Knee High))?See Instructions?use daily; closed toes; 15-20 mmHg. 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 Durable Medical Equipment (Vxn-lsw-nfjtr medical-grade oxford diabetic shoes, depth or hightop)?See Instructions?wear every day ??in both foot Dx DM type 2 ??with peripheral neuropathy ICD10 E11.40; DMtype 2 pressure callus 11.628; venous peripheral insuficiency I87.21 pair EPINEPHrine (EPINEPHrine 0.3 mg injectable solution)?0.3?Milligram?Intramuscular?Once?as needed?Anaphylactic Reaction Fluticasone Nasal (fluticasone 50 mcg/inh nasal spray)?2?spray(s)?Nares, Both?Daily?for 90?Days?Use every day during allergy season. While using spray keep head down. Formoterol (formoterol 10 mcg/mL inhalation solution)?See Instructions?USE 2 ML VIA NEBULIZERTWICE DAILY USING A CONTINUOUS FLOW VIA NEBULIZER hydrALAZINE (hydrALAZINE 25 mg oral tablet)?See Instructions?By mouth2 tab in 7 AM, ??1 tab at1PM and ??2 PM at [id number] supply Levothyroxine (levothyroxine 0.05 mg oral tablet)?1?tab(s)?By Mouth?Daily?for 90?Days Lisinopril (lisinopril 40 mg oral tablet)?1?tab(s)?40?Milligram?By Mouth?Daily Shawn?for 90?Days?11 AMDecreased dose Metformin (metFORMIN 500 mg oral tablet, extended release)?1?tab(s)?500?Milligram?ByMouth?2 times a day?for 90?Days?with ??mealIncrease dose Mirtazapine (mirtazapine 15 mg oral tablet)?0.5?tab(s)?By Mouth?Daily at bedtime?for90?Days Montelukast (montelukast 10 mg oral tablet)?1?tablet?By Mouth?Daily at bedtime?SUPPLY. Omeprazole (omeprazole 20 mg oral enteric coated capsule)?1?capsule?20?Milligram?By Mouth?Daily?for 90?Days?30 minutes before breakfastMD is aware of interaction with citalo pram Pravastatin (pravastatin 80 mg oral tablet)?1?tab(s)?By Mouth?Daily?for 90?Days Spironolactone (spironolactone 25 mg oral tablet)?25?Milligram?1?tablet?By Mouth?Daily in AM?at ??11 AMGiven by event host, Dr. Indio Mason Triamcinolone Topical (triamcinolone 0.025% topical cream)?1?kristy?Topically?3 times a day?PRN itching Apply to lower extremities Faroese ? Results Recent Labs BLOOD COUNT & DIFF WBC 8.4 k/mm3 ()?? 12/19/2023 09:41 RBC 4.32 m/mm3 ()?? 12/19/2023 09:41 Hgb 11.7 Gm/dL ()?? 12/19/2023 09:41 Hct 35.9 % ()?? 12/19/2023 09:41 MCV 83.1 femtoliters ()?? 12/19/2023 09:41 MCH 27.1 pg ()?? 12/19/2023 09:41 MCHC 32.6 g/dL (Low)?? 12/19/2023 09:41 Platelet Count 265 k/mm3 ()?? 12/19/2023 09:41 RDW-SD 46.5 femtoliters ()?? 12/19/2023 09:41 MPV 9.9 femtoliters ()?? 12/19/2023 09:41 Nucleated RBC (Automated) 0.0 #/100 WBC'S ()?? 12/19/2023 09:41 Abs. NRBC 0.0 k/mm3 ()?? 12/19/2023 09:41 Abs. Neut 4.6 k/mm3 ()?? 12/19/2023 09:41 Abs. Lymph 2.5 k/mm3 ()?? 12/19/2023 09:41 Abs. Gonzales 0.7 k/mm3 ()?? 12/19/2023 09:41 Abs. Eo 0.6 k/mm3 (High)?? 12/19/2023 09:41 Abs. Baso 0.1 k/mm3 ()?? 12/19/2023 09:41 Neut % 54.6 % ()?? 12/19/2023 09:41 Lymph % 29.2 % ()?? 12/19/2023 09:41 Gonzales % 8.8 % ()?? 12/19/2023 09:41 Eos % 6.5 % (High)?? 12/19/2023 09:41 Baso % 0.8 % ()?? 12/19/2023 09:41 Imm Gran 0.1 % ()?? 12/19/2023 09:41 Abs. Imm Gran 0.0 k/mm3 ()?? 12/19/2023 09:41 ?? CHEM GENERAL Sodium 139 mmol/L ()?? 12/19/2023 09:41 Potassium 3.6 mmol/L ()?? 12/19/2023 09:41 Chloride 99 mmol/L ()?? 12/19/2023 09:41 Bicarbonate Level 27 mmol/L ()?? 12/19/2023 09:41 Anion Gap 13 ()?? 12/19/2023 09:41 Glucose Level 143 mg/dL (High)?? 12/19/2023 09:41 BUN 13 mg/dL ()?? 12/19/2023 09:41 Creatinine-Blood 0.9 mg/dL ()?? 12/19/2023 09:41 Estimated GFR Creatinine 65 ML/MIN/1.73 M2 ()?? 12/19/2023 09:41 Calcium 9.5 mg/dL ()?? 12/19/2023 09:41 ?? HEME OTHER Hold Blue Top SPECIMEN DISCARDED AFTER 4 HOURS. ()?? 12/19/2023 09:41 ?? MISC. CHEMISTRY Hold Green Top SPECIMEN DISCARDED AFTER 1 WEEK ()?? 12/19/2023 09:41 Hold Gel Top SPECIMEN DISCARDED AFTER 1 WEEK ()?? 12/19/2023 09:41 Hold Bojorquez Top SPECIMEN DISCARDED AFTER 1 WEEK ()?? 12/19/2023 09:41 ?? URINE OTHER Est Creatinine Clearance 45.54 mL/min ()?? 12/19/2023 10:17 ?? VIROLOGY Influenza A PCR NEGATIVE ()?? 12/19/2023 09:30 Influenza B PCR NEGATIVE ()?? 12/19/2023 09:30 RSV PCR NEGATIVE ()?? 12/19/2023 09:30 COVID-19 PCR Specimen Source NASAL ()?? 12/19/2023 09:30 COVID-19 PCR Result NEGATIVE ()?? 12/19/2023 09:30 ? EKG study * Event Display: EKG Authored Date: * Event Display: ECG 12-Lead Authored Date: Please click on pdf link to open report * Event Display: ECG 12-Lead Authored Date: Ventricular Rate: 90 BPM Atrial Rate: 416 BPM QRS Duration: 84 ms Q-T Interval: 392 ms QTC Calculation(Bazett): 479 ms P [place]: 90 degrees R [place]: 39 degrees T [place]: 101 degrees Poor data quality, interpretation may be adversely affected Undetermined regular rhythm Nonspecific ST and T wave abnormality Abnormal ECG When compared with ECG of 24-SEP-2022 21:44, Poor data quality in current ECG precludes serial comparison Confirmed by ROHAN MCCLAIN [facility] ([id number]) on 12/20/2023 8:10:17 PM Pedro: ROHAN MCCLAIN,[facility] Progress note * Andrew PAREDES, Aimee Damon: MODIFY, PERFORM, SIGN, VERIFY, SIGN Event Display: Progress Note Hospital Authored Date: [id number] Patient: KRUNAL ALVARENGA Age: 78 years Sex: Female : 1945 Associated Diagnoses: None Author: Andrew PAREDES, Aimee Damon Findings Problem Related to Alteration in Respiratory Function (new) : Alteration in Respiratory Function/new 12/20/2023 13:00 EDT Alteration in Resp Status Related to Asthma Goals & Outcomes, Respiratory Pt will maintain/resume baseline physical assessment, Pt will maintain adequate nutritional intake, Pt will maintain/resume normal fluid/electrolyte balance Interventions, Respiratory Provide asthma education BH Goals/Interventions, Respiratory Yes Respiratory, Problem Start 12/19/2023 17:13 Reviewed Plan with, Respiratory Patient Patient Progression, Respiratory Patient progressing according to plan . Alteration in Safety : Alteration in Safety/new 12/20/2023 13:00 EDT Alteration in Safety Related to Other: fall risk Goals & Outcomes, Safety Pt will remain safe & injury free Interventions, Safety Discuss unsafe practices & situations with pt/S.O., Instruct pt on maintaining a safe environment, Talk to patient regarding concerns BH Goals/Interventions, Safety Yes Safety, Problem Start 12/20/2023 13:39 Reviewed plan with, Safety Patient Patient Progression, Safety Pt progressing according to plan . Nursing Data Respiratory/Pulmonary Data. : Respiratory/Pulmonary Data. 12/20/2023 12:27 EDT Treatment Given Updraft Nebulizer Therapy/MDI Mode of delivery (treatment) Mouth piece Patient reactions None Patient tolerance Good 12/20/2023 11:00 EDT Mode of Delivery (Oxygen) Room air 12/20/2023 9:11 EDT Respiratory effort Unlabored Left Upper Lobe Breath Sounds Wheezing, expiratory Right Upper Lobe Breath Sounds Wheezing, expiratory Right Middle Lobe Breath Sounds Wheezing, expiratory Left Lower Lobe Breath Sounds Diminished Respiratory WNL except 12/20/2023 8:00 EDT Mode of Delivery (Oxygen) Room air . Vital Signs : VITAL SIGNS SECTION 12/20/2023 12:19 EDT Early Warning Score 2.00 12/20/2023 12:19 EDT Early Warning Score 2.00 12/20/2023 12:18 EDT Systolic Blood Pressure 129 mm Hg Systolic Blood Pressure 129 mm Hg Diastolic Blood Pressure 64 mm Hg Diastolic Blood Pressure 64 mm Hg 12/20/2023 11:45 EDT Early Warning Score 2.00 12/20/2023 11:19 EDT Early Warning Score 3.00 12/20/2023 11:00 EDT Temperature 98.2 DegF Temperature Route Oral Pulse Rate 86 bpm Systolic Blood Pressure 113 mm Hg Diastolic Blood Pressure 59 mm Hg Blood pressure sites Arm, left Oxygen Saturation 92 % L Mode of Delivery (Oxygen) Room air 12/20/2023 9:01 EDT Early Warning Score 3.00 12/20/2023 8:56 EDT Early Warning Score 2.00 12/20/2023 8:56 EDT Pulse Rate 102 bpm H Systolic Blood Pressure 141 mm Hg H Diastolic Blood Pressure 67 mm Hg 12/20/2023 8:00 EDT Temperature 98.5 DegF Temperature Route Oral Pulse Rate 97 bpm H Respiratory Rate 18 br/min Systolic Blood Pressure 147 mm Hg H Diastolic Blood Pressure 61 mm Hg Blood pressure sites Arm, right Oxygen Saturation 91 % L Mode of Delivery (Oxygen) Room air . Narrative/Incidental fall precautions in place.Ambulated in hallway steady gait with wheeled walker no COOK noted after ambulation in hallway 100 feet. Room air sat 91-93% with activity.No ectopy. tele- nsr. Needle M[employer] services utilized .. * Aimee Morales RN: PERFORM Event Display: Progress Note Hospital Authored Date: display director services utilized dc instructions. * Mikhail Caraballo RN: PERFORM, SIGN, VERIFY Event Display: Progress Note Hospital Authored Date: Patient: KRUNAL ALVARENGA Age: 78 years Sex: Female : 1945 Associated Diagnoses: None Author: Mikhail Caraballo RN Findings Problem Related to Alteration in Respiratory Function (new) : Alteration in Respiratory Function/new 12/19/2023 21:00 EDT Alteration in Resp Status Related to Asthma Goals & Outcomes, Respiratory Pt will maintain/resume baseline physical assessment, Pt will maintain adequate nutritional intake, Pt will maintain/resume normal fluid/electrolyte balance Interventions, Respiratory Assess/monitor tolerance to IV infusions; verify rate/dose, Assess for and report S&S of respiratory distress, Initiate VAP prevention strategies, Position for comfort & optimal oxygenation, Initiate pulmonary rehab nurse consult, Teach/encourage use of incentive spirometer, Teach the proper use of inhalers Goals/Interventions, Respiratory Yes Respiratory, Problem Start 12/19/2023 17:13 Reviewed Plan with, Respiratory Patient Patient Progression, Respiratory Patient progressing according to plan . Nursing Data Vital Signs : VITAL SIGNS SECTION 12/19/2023 19:34 EDT Temperature 98.4 DegF Temperature Route Oral Pulse Rate 99 bpm H Respiratory Rate 15 br/min L Systolic Blood Pressure 118 mm Hg Diastolic Blood Pressure 55 mm Hg Blood pressure sites Arm, left Mean Arterial Pressure 76 mm Hg Pulse Pressure 63 mm Hg Oxygen Saturation 99 % Liters per Minute 4 L/min Mode of Delivery (Oxygen) Nasal cannula . Evaluation Pt A&Ox4, independent, mosotho speaking, on tele with a NSR, had no complains this shift, took all meds whole with milk, Bed in the lowest locked position with all items within reach and family at bedside helping with interpretation, charge is aware.. * Aimee Morales RN: MODIFY, SIGN, PERFORM, SIGN, VERIFY, SIGN, MODIFY Event Display: Progress Note Hospital Authored Date: Patient: KRUNAL ALVARENGA Age: 78 years Sex: Female : 1945 Associated Diagnoses: None Author: Aimee Morales RN Findings Problem Related to Alteration in Respiratory Function (new) : Alteration in Respiratory Function/new 12/19/2023 17:00 EDT Alteration in Resp Status Related to Asthma Goals & Outcomes, Respiratory Pt will maintain/resume baseline physical assessment, Pt will maintain adequate nutritional intake, Pt will maintain/resume normal fluid/electrolyte balance Interventions, Respiratory Assess/monitor tolerance to IV infusions; verify rate/dose, Assess for and report S&S of respiratory distress, Position for comfort & optimal oxygenation, Monitor sputum color & consistency. Report changes to MD Goals/Interventions, Respiratory Yes Respiratory, Problem Start 12/19/2023 17:13 Reviewed Plan with, Respiratory Patient, Children Patient Progression, Respiratory Plan Initiation . Narrative/Incidental Pt admitted to room 217b from ED. Oriented to new surroundings.Daughter at bedside. Pt ambulated inroom, steady gait no device, No COOK . no resp. distress. tele ST 101 asymptomatic. bp 100/56 asymptomatic Hydralazine HCL held per Elizabeth CORMIER instructions. * Aimee Morales RN: PERFORM Event Display: Progress Note Hospital Authored Date: [id number] late entry [employer]le [employer] services utilized for admission information Note * Aimee Morales RN: PERFORM Event Display: Discharge/Transfer Note Hospital Authored Date: [id number] Nursing Discharge Note Entered On: 12/20/2023 15:55 EDT Performed On: 12/20/2023 15:55 EDT by Aimee Morales RN Nursing Discharge Note 2 Discharge Time : 12/20/2023 15:55 EDT Discharge Level of Care at Discharge : Home/Residential/Foster Care Patient Left Unit Via : Wheelchair Patient Accompanied Off Unit with : Significant other DC Instructions Provided & Signed by Pt : Yes Patient Understands D/C Instructions : Yes Patient Instructions Discharge Signed : Yes Did Pt have Specialty Bed or Wound Vac : No Aimee Morales RN - 12/20/2023 15:55 EDT * Torrey Wilder MD: PERFORM Event Display: Discharge/Transfer Note Hospital Authored Date: [id number] Patient: ??LYLE, KRUNAL ? Age:??78 Years?Sex:??Female?:??1945?? Patient Information Discharge Location: Med Surg Primary Care Physician: Jessica Perrin MD Admit Date/Time: 12/19/23 09:24 Discharge Disposition Discharge Disposition: Home: No Services Discharge Diagnosis History of DVT in adulthood (Z86.718) Hypothyroidism (E03.9) Hypertension (I10) Mixed hyperlipidemia (E78.2) Anxiety disorder (F41.9) Obstructive sleep apnea (G47.33) Mild persistent asthma with acute exacerbation (J45.31) Type 2 diabetes mellitus with hyperglycemia, without long-term current use of insulin (E11.65) _ Discharge Medications Acetaminophen (acetaminophen 500 mg oral tablet)?2?tab(s)?1,000?Milligram?By Mouth?Every 6 hours?as needed?as needed for pain or fever?(not to exceed 3000 mg/day) Albuterol (albuterol 0.083% inhalation solution)?3?Milliliter?2.5?Milligram?Inhalation?Every 6 hours?for 30?Days Albuterol (ProAir HFA 90 mcg/inh inhalation aerosol with adapter)?2?puff(s)?Inhalation?4 times a day?as needed?Fill when ??patient request it?Wheezing/Shortness of Breath apixaban (Eliquis 5 mg oral tablet)?1?tab(s)?By Mouth?2 times a day Budesonide (budesonide 0.5 mg/2 mL inhalation suspension)?Inhalation?2 times a day Calcium And Vitamin D Combination (calcium (as citrate)-vitamin D 315 mg-250 intl units oral tablet)?2?tab(s)?By Mouth?2 times a day?for 90?Days Ciclopirox Topical (ciclopirox 8% topical solution)?1?kristy?Topically?Daily?as directedto affected area toenails Citalopram (citalopram 20 mg oral tablet)?20?Milligram?1?tablet?By Mouth?Daily Conjugated Estrogens Topical (Premarin Vaginal 0.625 mg/gm cream with applicator)?See Instructions?APPLY 1/2 GRAM IN THE VAGINA EVERY WEDNESDAY AND WEDNESDAY Desloratadine (Clarinex 5 mg oral tablet)?1?tab(s)?5?Milligram?By Mouth?Daily?for 90?Days Diltiazem (Matzim [place] 180 mg/24 hours oral tablet, extended release)?1?tab(s)?180?Milligram?By Mouth?Daily in AM?for 90?Days?Discontinue diltiazem 360 mgTakes at 11 AM Durable Medical Equipment (Glucose Monitor)?See Instructions?use to test blood sugar as directed; ??One ??Touch Ultra 2 Dx ??DM ??type ??2 Durable Medical Equipment (Alcohol Wipes)?See Instructions?use daily ??for blood sugar testing once ??a day Dx ??DM type 2 E11.9 Durable Medical Equipment (Lancets)?See Instructions?use daily for blood sugar testing once ??a day Dx ??DM type 2 E11.9One Touch Delica Durable Medical Equipment (Test Strips)?See Instructions?use daily for blood sugar testing once ??a day Dx ??DM type 2 E11.9One Touch Ultra Durable Medical Equipment (Compression- Lower Extremity (Knee High))?See Instructions?use daily; closed toes; 15-20 mmHg. 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 While using spray keep head down. Formoterol (formoterol 10 mcg/mL inhalation solution)?See Instructions?USE 2 ML VIA NEBULIZERTWICE DAILY USING A CONTINUOUS FLOW VIA NEBULIZER hydrALAZINE (hydrALAZINE 25 mg oral tablet)?See Instructions?By mouth2 tab in 7 AM, ??1 tab at1PM and ??2 PM at [id number] supply Levothyroxine (levothyroxine 0.05 mg oral tablet)?1?tab(s)?By Mouth?Daily?for 90?Days Lisinopril (lisinopril 40 mg oral tablet)?1?tab(s)?40?Milligram?By Mouth?Daily Shawn?for 90?Days?11 AMDecreased dose Metformin (metFORMIN 500 mg oral tablet, extended release)?1?tab(s)?500?Milligram?ByMouth?2 times a day?for 90?Days?with ??mealIncrease dose Mirtazapine (mirtazapine 15 mg oral tablet)?0.5?tab(s)?By Mouth?Daily at bedtime?for90?Days Montelukast (montelukast 10 mg oral tablet)?1?tablet?By Mouth?Daily at bedtime?SUPPLY. Omeprazole (omeprazole 20 mg oral enteric coated capsule)?1?capsule?20?Milligram?By Mouth?Daily?for 90?Days?30 minutes before breakfastMD is aware of interaction with citalo pram Pravastatin (pravastatin 80 mg oral tablet)?1?tab(s)?By Mouth?Daily?for 90?Days Spironolactone (spironolactone 25 mg oral tablet)?25?Milligram?1?tablet?By Mouth?Daily in AM?at ??11 AMGiven by event host, Dr. Indio Mason Triamcinolone Topical (triamcinolone 0.025% topical cream)?1?kristy?Topically?3 times a day?PRN itching Apply to lower extremities Faroese ? Medications Started N.A Medications Discontinued N/A Doses Changed N/A Future Appointments Wednesday 4:20 PM EDT ?? With: Celine MCCLAIN, Marco Wiseman Where: [facility] [place] [address]- Status: Pending Hospital Course This is a 78 year old female with history of asthma, HTN, T2DM, DVT on eliquis, anxiety and depression, LILA not on CPAP, hypothyroidism who presents with shortness of breath. She is Faroese speaking??and her??daughter translates at her request.??She started to feel unwell with cold like symptoms 2-3 days ago with nasal congestion, cough.?? Her son was sick with similar symptoms.?? She was taking bkwx-pax-gqyauvx cough medicine.?? Over the last 24 hours her symptoms have become more severe and now she is short of breath and wheezing and needing her inhaler and nebulizer.?? She tried??both her inhaler and her nebulizer this morning and had very limited relief of her symptoms therefore comes to the ER.?? She has no worsening leg swelling or chest pains, fevers or chills. ?? She received nebulizer treatment with good response, there is a query response to IV Solu-Medrol inER as patient complained throat discomfort 15 minutes after the administration but her symptoms resolved with Ativan. It is unclear if she actually has allergic reaction to steroids or there is a component of anxiety, but further dose was held as her symptoms improved significant today, able to ambulate with walker and sat 93% or above, wheezing significantly improved. No other new complaint, discussed plan of care with patient and daughter they agreed to discharge. Objective Assessment and Plan Discharge Planning:? Mild persistent asthma with acute exacerbation (J45.31) -wheezing and symptoms significantly improved, able to ambulate without dyspnea and maintained O2, ready for discharge -advised patient to continue Pulmicort bid and nebulizer up to 3-4 times a day then gradually spaceout once her respiratory status are back to baseline -given possible allergy to steroids will not prescribe upon discharge ?? History of DVT in adulthood (Z86.718) Hypothyroidism (E03.9) Hypertension (I10) Mixed hyperlipidemia (E78.2) Anxiety disorder (F41.9) Obstructive sleep apnea (G47.33) Type 2 diabetes mellitus with hyperglycemia, without long-term current use of insulin (E11.65) -continue home meds stable ?? Discussed with RN/LOS. Measurements?? Height: 165 cm (12/20/23) Weight: 87.2 kg (12/19/23) Dry Weight: 84.5 kg (12/19/23) Body Mass Index:??32.03 kg/m2??Critical (12/19/23) ? Vital Signs?? Temperature: 98.2 DegF (12/20/23 11:00:00) Temperature Route: Oral (12/20/23 11:00:00) Pulse Rate: 86 bpm (12/20/23 11:00:00) Respiratory Rate: 18 br/min (12/20/23 08:00:00) Systolic Blood Pressure: 129 mm Hg (12/20/23 12:18:00) Systolic Blood Pressure: 129 mm Hg (12/20/23 12:18:00) Diastolic Blood Pressure: 64 mm Hg (12/20/23 12:18:00) Diastolic Blood Pressure: 64 mm Hg (12/20/23 12:18:00) Blood pressure sites: Arm, left (12/20/23 11:00:00) Mean Arterial Pressure: 100 mm Hg (12/20/23 05:43:00) Pulse Pressure: 84 mm Hg (12/20/23 05:43:00) Oxygen Saturation:??92 %??Low (12/20/23 11:00:00) Liters per Minute: 4 L/min (12/19/23 19:34:00) Mode of Delivery (Oxygen): Room air (12/20/23 11:00:00) Early Warning Score: 2 (12/20/23 12:19:38) ? Basic ADLs Feeding Assistance: Set up (12/20/23) Hygiene: Assist (12/20/23) ? Mobility & Ambulation Level Mobility & Ambulation Level?? No qualifying data available. ?? Therapeutic Activity Therapeutic Activities/Mobility/Balance?? No qualifying data available. ?? . Physical Exam Constitutional: Alert, in no acute distress. Head EENT: Extraocular muscle movement intact.??Moist mucous membranes.?? Respiratory: Good air entry with minimal wheezing. No use of accessory muscles. Cardiovascular: S1S2 regular. No murmurs, rubs or gallops. Gastrointestinal: Abdomen soft, non-tender, non-distended. Normal bowel sounds. Extremities: No lower extremity pitting??edema. No cyanosis or clubbing. Neurologic: AAOx3, Speech normal. No focal neurological deficits. Psychiatric: Normal mood and affect Pending Results Add On Lab Order ordered on 12/19/2023 Patient Education Titles WebMD Ignite Patient Education - Budesonide Dry Powder Inhaler?? Web[employer] Patient Education - Using Blood Thinners (Anticoagulants)?? WebMD [employer] Patient Education - Zones Adult Asthma?? Follow-Up Appointments Added Follow Up ?Time Frame ?Comments Marychuy MCCLAIN, [facility]?2 to 3 weeks Patient Instructions You are admitted for mild asthma exacerbation that can be triggered by non- specific viral illness or weather changes, you received nebulizer treatment and one dose of intravenous steroids with good response;? Following discharge please continue to use budesonide nebulizer twice a day (regardless how well your symptoms are controlled) and albuterol up to 3-4 times a day for another few days then space out the frequency to as needed only; Rinse mouth after each use of budesonide to avoid fungal thrush;? Follow up with primary care and pulmonology as scheduled;? You may use acetaminophen up to 3000 mg over 24 hours for milder pain (do not exceed this limit to avoid life-threatening liver failure); Please avoid ibuprofen, naproxen, diclofenac or other esyz-jvt-wzvkewd analgesics collectively called NSAIDs as these medications may trigger internal bleeding when you also take blood thinner; ?? Return to nearest emergency room or call 911 if you experience fever T>100.4F, chill, chest painlasts longer than 10 minutes, shortness of breathing with minimal exertion, worsening or more constant abdominal pain, nausea/vomiting, food intolerance, bloody or tarry stool, extreme fatigue or dizziness, or other severe and/or persistent symptoms. Post Discharge Care Activity: ??Ambulate With Assistance 3 times a day ?? Code Status: ??Full Resuscitation ?? Condition: ??Stable ?? Prognosis: ??Fair ?? Results Discharge Labs BLOOD COUNT & DIFF WBC 8.4 k/mm3 ()?? 12/19/2023 09:41 RBC 4.32 m/mm3 ()?? 12/19/2023 09:41 Hgb 11.7 Gm/dL ()?? 12/19/2023 09:41 Hct 35.9 % ()?? 12/19/2023 09:41 MCV 83.1 femtoliters ()?? 12/19/2023 09:41 MCH 27.1 pg ()?? 12/19/2023 09:41 MCHC 32.6 g/dL (Low)?? 12/19/2023 09:41 Platelet Count 265 k/mm3 ()?? 12/19/2023 09:41 RDW-SD 46.5 femtoliters ()?? 12/19/2023 09:41 MPV 9.9 femtoliters ()?? 12/19/2023 09:41 Nucleated RBC (Automated) 0.0 #/100 WBC'S ()?? 12/19/2023 09:41 Abs. NRBC 0.0 k/mm3 ()?? 12/19/2023 09:41 Abs. Neut 4.6 k/mm3 ()?? 12/19/2023 09:41 Abs. Lymph 2.5 k/mm3 ()?? 12/19/2023 09:41 Abs. Gonzales 0.7 k/mm3 ()?? 12/19/2023 09:41 Abs. Eo 0.6 k/mm3 (High)?? 12/19/2023 09:41 Abs. Baso 0.1 k/mm3 ()?? 12/19/2023 09:41 Neut % 54.6 % ()?? 12/19/2023 09:41 Lymph % 29.2 % ()?? 12/19/2023 09:41 Gonzales % 8.8 % ()?? 12/19/2023 09:41 Eos % 6.5 % (High)?? 12/19/2023 09:41 Baso % 0.8 % ()?? 12/19/2023 09:41 Imm Gran 0.1 % ()?? 12/19/2023 09:41 Abs. Imm Gran 0.0 k/mm3 ()?? 12/19/2023 09:41 ?? CHEM GENERAL Sodium 139 mmol/L ()?? 12/19/2023 09:41 Potassium 3.6 mmol/L ()?? 12/19/2023 09:41 Chloride 99 mmol/L ()?? 12/19/2023 09:41 Bicarbonate Level 27 mmol/L ()?? 12/19/2023 09:41 Anion Gap 13 ()?? 12/19/2023 09:41 Glucose Level 143 mg/dL (High)?? 12/19/2023 09:41 Glucose, POC 195 mg/dL (High)?? 12/20/2023 10:59 BUN 13 mg/dL ()?? 12/19/2023 09:41 Creatinine-Blood 0.9 mg/dL ()?? 12/19/2023 09:41 Estimated GFR Creatinine 65 ML/MIN/1.73 M2 ()?? 12/19/2023 09:41 Calcium 9.5 mg/dL ()?? 12/19/2023 09:41 ? ENDOCRINE/TUMOR MARKER TSH 3.63 uIU/mL ()?? 12/19/2023 09:41 ? HEME OTHER Hold Blue Top SPECIMEN DISCARDED AFTER 4 HOURS. ()?? 12/19/2023 09:41 ? MISC. CHEMISTRY Hold Green Top SPECIMEN DISCARDED AFTER 1 WEEK ()?? 12/19/2023 09:41 Hold Gel Top SPECIMEN DISCARDED AFTER 1 WEEK ()?? 12/19/2023 09:41 Hold Bojorquez Top SPECIMEN DISCARDED AFTER 1 WEEK ()?? 12/19/2023 09:41 ? URINE OTHER Est Creatinine Clearance 45.54 mL/min ()?? 12/19/2023 10:17 ? VIROLOGY Influenza A PCR NEGATIVE ()?? 12/19/2023 09:30 Influenza B PCR NEGATIVE ()?? 12/19/2023 09:30 RSV PCR NEGATIVE ()?? 12/19/2023 09:30 COVID-19 PCR Specimen Source NASAL ()?? 12/19/2023 09:30 COVID-19 PCR Result NEGATIVE ()?? 12/19/2023 09:30 ? 40??minutes spent on discharge * Andrew PAREDES, Aimee Damon: PERFORM Event Display: Patient Education/Instruction Authored Date: [id number] Inpatient Adult Discharge Instructions. [address] [address] Name: KRUNAL ALVARENGA : 1945?? Visit: 12/19/2023 09:24?? Current Date: 12/20/2023 14:51 ?? Account: [id number]?? Inpatient Adult Discharge Instructions We would like to thank you for allowing us to assist you with your healthcare needs. The following includes patient education materials and information regarding your injury/illness. Our entire staffstrives to provide an excellent experience for our patients and their families. PLEASE ENSURE YOU FOLLOW-UP PER THE INSTRUCTIONS BELOW! ?? YOUR OPINION IS IMPORTANT TO US! Please complete the survey you may receive by mail or email. Your feedback will be used to make improvements to the healthcare experiences of our patients and their families. Surveys are administered by [employer] ?? If further treatment with your primary care physician or another doctor is recommended, it is important for you to keep the appointment. Call your primary care physician or return to the Emergency Department immediately if your condition worsens, fails to improve, or new symptoms develop. If you need to find a doctor, you can call [facility] Link for a referral at [phone] or toll free at [phone]) or log in to [email or web address].. ?? [facility], in keeping with [facility] guidance, no longer requires face masks for staff, patientsor visitors in most situations. Similiar to time spent indoors at other locations, there is the chance that you were exposed to repiratory viruses during your time with us (such as flu or COVID-19). If you develop symptoms concerning for a viral respiratory infection, please seek testing (and treatment if indicated) from your medical provider or home test kit. ?? You can view and manage your care through the patient portal or by using a health care kristy of your choosing. [facility] is a website that allows you to securely view your medical information including your hospital discharge summary, office visit summaries, medications and follow-up visits. You can also request appointments, renew medications, and request access to your medical information using a health care kristy of your choosing, or just ask a question. You can enroll at [email or web address] or register during your next office visit. You have been discharged from [facility], Patient Care Unit: Med Surg??. If you have any questions regarding these instructions, including results of studies pending, afteryou leave, please call us and we will be happy to assist you 05/04. [facility] Your Care Team Attending Physician Torrey Wilder MD?? Consulting Providers Torrey Wilder MD?? Discharging Providers Torrey Wilder MD Reason for Your Visit asthma exacerbation, viral illness?? Your Diagnosis History of DVT in adulthood Hypothyroidism Hypertension Mixed hyperlipidemia Anxiety disorder Obstructive sleep apnea Mild persistent asthma with acute exacerbation Type 2 diabetes mellitus with hyperglycemia, without long-term current use of insulin Tests Performed Below is a partial list of the tests performed during your hospitalization. You may have had other tests and procedures not included in this list. Please discuss all test results with your provider. Basic Metabolic Panel CBC w/ Differential COVID-19, RSV, and Flu A/B, Rapid PCR GLUCOSE POC HOLD BLUE TUBE HOLD GEL TUBE HOLD BOJORQUEZ TUBE HOLD GREEN TUBE TSH XR Chest 2 Views Frontal and Lat Add On Lab Order?? Primary Care Provider Jessica Perrin MD? Advance Directive Health Care Proxy on File Yes - Health Care Proxy Yes - MOLST Discharge Vitals Temperature: 98.2 DegF Height: 165 cm Pulse Rate: 86 bpm Weight: 87.2 kg Respiratory Rate: 18 br/min Body Mass Index:??32.03 kg/m2??Critical Systolic Blood Pressure: 129 mm Hg Body surface area: 2 Systolic Blood Pressure: 129 mm Hg ?? Diastolic Blood Pressure: 64 mm Hg ?? Diastolic Blood Pressure: 64 mm Hg ?? Oxygen Saturation:??92 %??Low ?? Studies Pending All studies ordered during this hospital stay have been completed unless listed below. Please discuss all pending results with your provider listed above in these instructions. ?? Add On Lab Order?? What to do next Instructions From Your Doctor You are admitted for mild asthma exacerbation that can be triggered by non- specific viral illness or weather changes, you received nebulizer treatment and one dose of intravenous steroids with good response;? Following discharge please continue to use budesonide nebulizer twice a day (regardless how well your symptoms are controlled) and albuterol up to 3-4 times a day for another few days then space out the frequency to as needed only; Rinse mouth after each use of budesonide to avoid fungal thrush;? Follow up with primary care and pulmonology as scheduled;? You may use acetaminophen up to 3000 mg over 24 hours for milder pain (do not exceed this limit to avoid life-threatening liver failure); Please avoid ibuprofen, naproxen, diclofenac or other thfg-cbi-ykaqryi analgesics collectively called NSAIDs as these medications may trigger internal bleeding when you also take blood thinner; ?? Return to nearest emergency room or call 911 if you experience fever T>100.4F, chill, chest painlasts longer than 10 minutes, shortness of breathing with minimal exertion, worsening or more constant abdominal pain, nausea/vomiting, food intolerance, bloody or tarry stool, extreme fatigue or dizziness, or other severe and/or persistent symptoms. ?? Orders??:Ambulate ??With Assistance ??3 times a day Status: ??Full Resuscitation :Stable :Fair? 12/20/23 14:24:00 EDT?? Prescriptions??, ??12/20/23 14:24:00 EDT?? Scheduled Follow-Up Appointments Wednesday 4:20 PM EDT ?? With: Marco Berger MD Where: [facility] [address] [place] [address]- Status: Pending You Need to Schedule the Following Appointments Follow Up with??Jesscia Perrin MD When:??Within 2 to 3 weeks Where: [address] [place] [id number]- Discharge Medications KRUNAL ALVARENGA :1945 Visit Date:12/19/2023 Medications: Please continue your medications until treatment is completed or stopped by your provider. Medications not listed below should be discontinued. Discuss any questions related to medications with your provider. What How Much When Why Instructions Next Dose Unchanged Acetaminophen (acetaminophen 500 mg oral tablet) 2 tab(s) Oral Every 6 hours as needed for as needed for pain or fever (not to exceed 3000 mg/ day) ?? not given in hospital Unchanged Albuterol (albuterol 0.083% inhalation solution) 3 Milliliter Inhalation Every 6 hours Duration: 30 Days last given at 1227 pm today Unchanged Albuterol (ProAir HFA 90 mcg/ inh inhalation aerosol with adapter) 2 puff(s) Inhalation 4 times a day as needed for Wheezing/Shortness of Breath Fill when ??patient request it ?? not given in hospital Unchanged apixaban (Eliquis 5 mg oral tablet) 1 tab(s) Oral Twice a day due tonight at 9pm Unchanged Budesonide (budesonide 0.5 mg/ 2 mL inhalation suspension) 2 Milliliter Inhalation Twice a day last given at 1227pm Unchanged Calcium And Vitamin D Combination (calcium (as citrate)-vitamin D 315 mg-250 intl units oral tablet) 2 tab(s) Oral Twice a day Duration: 90 Days resume at home usual home schedule Unchanged Ciclopirox Topical (ciclopirox 8% topical solution) 1 kristy Topically Daily as directed to affected area toenails ?? not given in hospital Unchanged Citalopram (citalopram 20 mg oral tablet) 1 tab(s) Oral Daily due tomorrow morning Unchanged Conjugated Estrogens Topical (Premarin Vaginal 0.625 mg/ gm cream with applicator) See instructions APPLY 1/ 2 GRAM IN THE VAGINA EVERY WEDNESDAY AND WEDNESDAY ?? not given in hospital Unchanged Desloratadine (Clarinex 5 mg oral tablet) 1 tab(s) Oral Daily Duration: 90 Days not given in hospital resume home schedule Unchanged Diltiazem (Matzim LA 180 mg/ 24 hours oral tablet, extended release) 1 tab(s) Oral Daily in the morning Duration: 90 Days Discontinue diltiazem 360 mg Takes at 11 AM ?? due tomorrow morning Unchanged Durable Medical Equipment (Alcohol Wipes) See instructions Diabetes mellitus type 2 use daily ??for blood sugar testing once ??a day Dx ??DM type 2 E11.9 ?? DME Unchanged Durable Medical Equipment (Compression- Lower Extremity (Knee High)) See instructions use daily; closed toes; 15-20 mmHg. Dx peripheral vascular insufficiency I 87.2 ?? DME Unchanged Durable Medical Equipment (Glucose Monitor) See instructions DM use to test blood sugar as directed; ??One ??Touch Ultra 2 Dx ??DM ??type ??2 ?? DME Unchanged Durable Medical Equipment (Lancets) See instructions DM type 2 use daily for blood sugar testing once ??a day Dx ??DM type 2 E11.9 One Touch Delica ?? 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 1 pair ?? 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 3 pairs ?? DME Unchanged Durable Medical Equipment (Test Strips) See instructions Diabetes mellitus type 2 use daily for blood sugar testing once ??a day Dx ??DM type 2 E11.9 One Touch Ultra ?? DME Unchanged EPINEPHrine (EPINEPHrine 0.3 mg injectable solution) 0.3 Milligram Intramuscular Once as needed for Anaphylactic Reaction not given in hospital Unchanged Fluticasone Nasal (fluticasone 50 mcg/ inh nasal spray) 2 spray(s) Nares, Both Daily Duration: 90 Days Use every day during allergy season. While using spray keep head down. ?? not given in hospital resume home schedule Unchanged Formoterol (formoterol 10 mcg/ mL inhalation solution) See instructions USE 2 ML VIA NEBULIZER TWICE DAILY USING A CONTINUOUS FLOW VIA NEBULIZER ?? tonight Unchanged hydrALAZINE (hydrALAZINE 25 mg oral tablet) See instructions By mouth 2 tab in 7 AM, ??1 tab at1PM and ??2 PM at 4PM ?? 90-day supply ?? resume at 4pm Unchanged Levothyroxine (levothyroxine 0.05 mg oral tablet) 1 tab(s) Oral Daily Duration: 90 Days due tomorrow morning Unchanged Lisinopril (lisinopril 40 mg oral tablet) 1 tab(s) Oral Daily in the morning Duration: 90 Days 11 AM Decreased dose ?? due tomorrow at 11am Unchanged Metformin (metFORMIN 500 mg oral tablet, extended release) 1 tab(s) Oral Twice a day Duration: 90 Days with ??meal Increase dose ?? not given in hospital, resume at home, usual home dose Unchanged Mirtazapine (mirtazapine 15 mg oral tablet) 0.5 tab(s) Oral Daily at Bedtime Duration: 90 Days due tonight Unchanged Montelukast (montelukast 10 mg oral tablet) 1 tab(s) Oral Daily at Bedtime SUPPLY. ?? due tonight Unchanged Omeprazole (omeprazole 20 mg oral enteric coated capsule) 1 capsule Oral Daily Duration: 90 Days 30 minutes before breakfast MD is aware of interaction with citalopram ?? due tomorrow morning Unchanged Pravastatin (pravastatin 80 mg oral tablet) 1 tab(s) Oral Daily Duration: 90 Days due tomorrow morning Unchanged Spironolactone (spironolactone 25 mg oral tablet) 1 tab(s) Oral Daily in the morning at ??11 AM Given by event host, Dr. Indio Mason ?? due tomorrow at 11am Unchanged Triamcinolone Topical (triamcinolone 0.025% topical cream) 1 kristy Topically 3 times a day Itching PRN itching Apply to lower extremities Faroese ?? not given in hospital Prescription Given During Visit No new medications prescribed at time of discharge.?? Laboratory Results Below is a partial list of the most recent Laboratory test results done prior to this discharge. You may have had other tests and procedures not included in this list. Please discuss all test resultswith your provider. Est Creatinine Clearance - 45.54 mL/min (12/19/2023) Basic Metabolic Panel (12/19/2023) ???Sodium - 139 mmol/L???Potassium - 3.6 mmol/L???Chloride - 99 mmol/L???Bicarbonate Level - 27 mmol/L???Anion Gap - 13???Glucose Level - 143 mg/dL???BUN - 13 mg/dL???Creatinine-Blood - 0.9 mg/dL???Estimated GFR Creatinine - 65 ML/MIN/1.73 M2???Calcium - 9.5 mg/dL CBC w/ Differential (12/19/2023) ???WBC - 8.4 k/mm3???RBC - 4.32 m/mm3???Hgb - 11.7 Gm/dL???Hct - 35.9 %???MCV - 83.1 femtoliters???MCH - 27.1 pg???MCHC - 32.6 g/dL???Platelet Count - 265 k/mm3???RDW-SD - 46.5 femtoliters???MPV - 9.9 femtoliters???Nucleated RBC (Automated) - 0.0 #/100 WBC'S???Abs. NRBC - 0.0 k/mm3???Abs. Neut - 4.6 k/mm3???Abs. Lymph - 2.5 k/mm3???Abs. Gonzales - 0.7 k/mm3???Abs. Eo - 0.6 k/mm3???Abs. Baso - 0.1 k/mm3???Neut % - 54.6 %???Lymph % - 29.2 %???Gonzales % - 8.8 %???Eos % - 6.5 %???Baso % - 0.8 %???Imm Gran- 0.1 %???Abs. Imm Gran - 0.0 k/mm3 COVID-19, RSV, and Flu A/B, Rapid PCR (12/19/2023) ???Influenza A PCR - NEGATIVE???Influenza B PCR - NEGATIVE???RSV PCR - NEGATIVE???COVID-19 PCR Specimen Source - NASAL???COVID-19 PCR Result - NEGATIVE GLUCOSE POC (12/20/2023) ???Glucose, POC - 195 mg/dL HOLD BLUE TUBE (12/19/2023) ???Hold Blue Top - SPECIMEN DISCARDED AFTER 4 HOURS. HOLD GEL TUBE (12/19/2023) ???Hold Gel Top - SPECIMEN DISCARDED AFTER 1 WEEK HOLD BOJORQUEZ TUBE (12/19/2023) ???Hold Bojorquez Top - SPECIMEN DISCARDED AFTER 1 WEEK HOLD GREEN TUBE (12/19/2023) ???Hold Green Top - SPECIMEN DISCARDED AFTER 1 WEEK TSH (12/19/2023) ???TSH - 3.63 uIU/mL Allergies (NKA means No Known Allergies) dexamethasone??(Swelling of throat 10-DEC-2015 19:14:30<$>) predniSONE??(Itchy skin eruption) tramadol??(Itch) Problems Active Problems??(19) *[phone] Managed Care Coordinator Michelle Cain?? Allergic rhinitis?? Anxiety disorder?? Atrophic vaginitis?? Chronic anticoagulation secondary to unprovoked DVT?? Depression?? Diabetes mellitus type 2?? Diabetic neuropathy?? Diabetic peripheral angiopathy?? History of DVT in adulthood?? Hypertension?? Hypothyroidism?? Insomnia?? Mixed hyperlipidemia?? OA (osteoarthritis) of knee?? Obese class I?? Obstructive sleep apnea?? Osteopenia?? Varicose vein?? Education Materials Below is the list of Educational Leaflet Providered with your Discharge Instructions. Web[employer] Ignite Patient Education - Budesonide Dry Powder Inhaler?? Web[employer] Ignite Patient Education - Using Blood Thinners (Anticoagulants)?? Web[employer] Ignite Patient Education - Zones Adult Asthma?? Valuables and Belongings I fully understand and agree that [facility] accepts no responsibility for all my personal property including clothing, toilet articles, radios, jewelry, dentures, hearing aids, rings, money, or any other property that is in my possession or is brought to me after admission. I understand certain valuables may be placed in a hospital safe for a short period of time. I understand that the hospital is not liable for loss or damage due to accident, fire, or other natural occurrence while said property is in the safe. I accept full responsibility for any personal property that I keep with me, and will not hold the hospital responsible in case of loss or disappearance. I acknowledge that i have been encouraged to send valuables and belongings home. ?? Review of Valuable and Belonging List: With patient, With family Disposition of Belongings: Sent home with patient/family Date for Pt to Sign Valuables/Belongings: 12/19/23 18:13:00 ?? Other Discharge Information ? Pulmonary Rehab Status?? Pulmonary Rehab Discharge Status?? Respiratory Rate: 18 br/min ? Common Emergency Awareness Tips IS IT A STROKE? Act FAST and Check for these signs: FACE Does the face look uneven? ARM Does one arm drift down? SPEECH Does their speech sound strange? TIME Call at any sign of stroke ?? Heart Attack Signs Chest discomfort: Most heart attacks involve discomfort in the center of the chest and lasts more than a few minutes, or goes away and comes back. It can feel like uncomfortable pressure, squeezing, fullness or pain. Discomfort in upper body: Symptoms can include pain or discomfort in one or both arms, back, neck, jaw or stomach. Shortness of breath: With or without discomfort. Other signs: Breaking out in a cold sweat, nausea, or lightheaded. Remember, MINUTES DO MATTER. If you experience any of these heart attack warning signs, call to get immediate medical attention! ?? Smoking can increase your chances of developing chronic health problems and can cause harmful effects to other family members in your house. If you smoke, you are strongly encouraged to quit. Please call [facility] [employer] Link at [phone] or [phone] ([phone]) or log in to [email or web address] for referrals to smoking cessation programs. ?? 291 Suicide & Crisis Lifeline is available 05/04 if you or someone you know needs to find a reason to keep living. By calling 058 you'll be connected to a skilled, trained counselor at a crisis center in your area. INPATIENT DISCHARGE INSTRUCTIONS SIGNATURE TONIA KRUNAL ALVARENGA Location:[facility] Registration Date and Time:12/19/2023 09:24 EDT Primary Care Physician: Jessica Perrin MD, Attending Physician: Torrey Wilder MD, I KRUNAL ALVARENGA, have received the above patient education materials/instructions and have verbalizedunderstanding. If ambulance or transport services are being used I further acknowledge being given a choice of service. ?? If you need to contact me, please call me at this number: . Patient/Cleaning And Washing Equipment Operator Name: Patient/Cleaning And Washing Equipment Operator Signature: Relationship to Patient: Witness Name/Signature: Date: * Torrey Wilder MD: PERFORM Event Display: Patient Education Leaflets Authored Date: [id number] Budesonide Dry Powder Inhaler ?? [id number] Budesonide Dry Powder Inhaler Brands: Pulmicort Usos Miriam medicamento se usa para las siguientes afecciones: ??? asma ??? enfermedad pulmonar cr??eleuterio ?? Instrucciones Miriam medicamento funciona mejor si se usa a aproximadamente la misma hora todos los d??as. Mantenga miriam medicamento a temperatura ambiente. Prot??jalo de la humedad. P??jagdish a trinidad m??dico, enfermero o farmac??utico que le ense??e a usar miriam medicamento correctamente. Miriam medicamento es un polvo muy antwon. Puede que algunos pacientes no sientan o le hallen sabor al medicamento. No tome juliano dosis adicional del medicamento si no le halla sabor o no la siente cuando se la administra. Enjuagar la boca y la garganta con agua despu??s de cada uso y escupir el agua. No tragar el agua. No deje de usar miriam medicamento repentinamente. Suspender trinidad uso repentinamente puede hacer que surespiraci??n empeore. Es importante que contin??e tomando todas las dosis de miriam medicamento a la hora indicada aunque se sienta gillian. Si olvida sathish juliano dosis a tiempo, t??jordon lauren pronto lo recuerde. Si es kaity la hora de la dosis siguiente, no tome la dosis olvidada. Vuelva al horario normal. No tome dos dosis al mismo tiempo. Las interacciones con otros medicamentos pueden cambiar la forma en que act??an los medicamentos o aumentar el riesgo de presentar efectos secundarios. Informe a willis profesionales sanitarios acerca de todos los medicamentos que usa. [place] incluye medicamentos con y sin receta m??dica, vitaminas y medicamentos a base de hierbas. Hable con trinidad m??dico o farmac??utico antes de empezar o dejar de usar cualquier medicamento. No comparta miriam medicamento con otras personas a quienes no se les recet??. Es muy importante que asista a todas las citas para evaluaciones y pruebas m??dicas mientras usa miriam medicamento. ?? Precauciones Esta medicina es un esteroide que se usa para prevenir la inflamaci??n. La inflamaci??n es la respuesta del cuerpo ante juliano enfermedad que a veces puede empeorar nuestros s??ntomas. Si usted cambia de un esteroide oral a esta medicina es importante que trinidad cuerpo se adapte apropiadamente a miriam cambio. Para m??s informaci??n, hable con trinidad m??dico o enfermero. Informe a trinidad m??dico y a trinidad farmac??utico si alguna vez chavez tenido juliano reacci??n al??rgica a un medicamento. No use el medicamento m??s veces de lo indicado. Miriam medicamento puede reducir trinidad capacidad para combatir infecciones. Trate de evitar el contacto con personas con resfriados, gripe u otras infecciones. Informe a trinidad m??dico o farmac??utico si est?? o planea quedar embarazada, o si est?? amamantando. Si miriam medicamento causa m??s sibilancia o hace que sea m??s dif??cil respirar, deje de usarlo. Obtenga ayuda m??dica de inmediato. No use miriam medicamento shaneka un ataque de asma. No detendr?? un ataque juliano vez que haya empezado. Si tiene alg??n problema para usar el medicamento, inf??rmele a trinidad m??dico, enfermero o farmac??utico. ?? Efectos Secundarios La siguiente es juliano lista de algunos efectos secundarios comunes de miriam medicamento. Hable con el m??dico para saber qu?? debe hacer en gopal de tener estos u otros efectos secundarios. ??? ronquera o irritaci??n en la garganta ??? cambios en el sabor o sabor desagradable Llame al m??dico u obtenga atenci??n m??dica de inmediato si nota cualquiera de estos efectos secundarios m??s graves: ??? sensaci??n de agitaci??n o dificultad para dormir ??? raras veces, un episodio christiano de asma puede ocurrir ??? fiebre o escalofr??os ??? aumento del riesgo de infecci??n ??? cambios de estado de??anders ??? dolor o debilidad muscular ??? adelgazamiento de la piel ??? dolor de garganta ??? cansancio o debilidad, extra??o o sin causa aparente ??? visi??n borrosa o cambios en la visi??n ??? heridas que tardan mucho en sanar ??? infecci??n por c??ndida en la boca o garganta Algunas personas podr??an tener reacciones al??rgicas a miriam medicamento. Entre los s??ntomas pueden incluirse: dificultad para respirar, erupci??n en la piel, comez??n, hinchaz??n o mareos intensos.Si nota algunos de estos s??ntomas, busque asistencia m??dica r??pidamente. ?? Extra Hable con trinidad m??dico, enfermero o farmac??utico si tiene alguna pregunta acerca de miriam medicamento. ?? [email or web address] NOTA IMPORTANTE: En miriam documento hay juliano explicaci??n breve sobre c??mo usar el medicamento, perono incluye todo lo que hay que saber acerca del medicamento. [place] m??dico o trinidad farmac??utico podr??a suministrarle otros documentos acerca de trinidad medicamento. Comun??quese con ellos si tiene alguna pregunta. Siga siempre willis consejos. Juliano descripci??n m??s completa de miriam medicamento est?? disponibleen ingl??s. Escanee miriam c??digo en trinidad tel??fono inteligente o en trinidad tableta, o use la direcci??n web que aparece a continuaci??n. Tambi??n puede pedirle a trinidad farmac??utico juliano copia impresa. Si tiene alguna pregunta, h??gasela a trinidad farmac??utico. La exhibici??n y el uso de esta informaci??n sobre f??rmacos est?? sujeta a los T??rminos de Uso. Copyright(c) 2022 [employer]. ?? [id number] [employer]. All rights reserved. This information is not intended as a substitute for professional medical care. Always follow your healthcare professional's instructions. ?? * Torrey Wilder MD: PERFORM Event Display: Patient Education Leaflets Authored Date: [id number] Using Blood Thinners (Anticoagulants) ?? [id number] C??mo usar anticoagulantes (diluyentes de la shawn) Los medicamentos diluyentes de la shawn ayudan a prevenir la formaci??n de co??gulos en la shawn.Tambi??n se llaman anticoagulantes.??Algunos de estos medicamentos son los siguientes: ??? Warfarina ??? Heparina ??? Dabigatr??n ??? Rivaroxab??n ??? Apixab??n ??? Edoxab??n ??? Betrixab??n [place] proveedor de atenci??n m??dica le dir?? qu?? medicamento es m??s adecuado para usted. Antes de que trinidad shawn se diluya Antes de comenzar a sathish trinidad medicamento, informe a trinidad proveedor de atenci??n m??dica si sufre alguna de las siguientes condiciones: ?lcera de est??guille (ahora o en el pasado) ??? V??mitos con shawn ??? Shawn en las heces (decolor crispin o obando) ??? Aneurisma ??? Pericarditis ??? Derrame peric??rdico ??? Trastorno de la shawn ??? Cirug??a reciente ??? Derrame cerebral o miniaccidente cardiovascular (llamado AIT, accidente isqu??connie transitorio) ??? Punci??n en la m??dula heller ??? Enfermedad renal o hep??lauren ??? Presi??n arterial brissa no controlada ??? Diabetes ??? Vasculitis Tambi??n d??gale a trinidad proveedor de atenci??n m??dica si algo de lo siguiente se aplica a trinidad gopal: ??? Es maria dolores de 18??a??os. ??? Se realiz?? un procedimiento dental recientemente o tiene planeado hacerlo. ??? Est?? embarazada o amantando. Esta lista puede no incluir todas las afecciones que pueden afectar el desempe??o de trinidad medicamento. Hable con trinidad proveedor de atenci??n m??dica y farmac??utico. ?? Medicamentos que interact??an con los diluyentes de la shawn Muchos medicamentos afectan el desempe??o de los diluyentes de la shawn. Antes de sathish un diluyente para la shawn, informe al proveedor de atenci??n m??dica todos los medicamentos y suplementos que lory. [place] incluye los medicamentos con receta y los de venta nurys, vitaminas o hierbas. Avise a trinidad proveedor de atenci??n m??dica si lory consume alguno de los siguientes productos: ??? Medicamentos antibi??ticos ??? Medicamentos para el coraz??n ??? Cimetidina ??? Medicamentos antiinflamatorios, marialuisa aspirina, ibuprofeno, naproxeno, ketoprofeno o medicamentos para la artritis ??? Medicamentos antidepresivos, para tratamiento del c??ncer, el VIH (inhibidores de la proteasa), la diabetes, las convulsiones, la gota o el colesterol alto, o medicamentos para las tiroides ??? Multivitam??nicos que contengan vitamina??K ??? Medicamentos a base de hierbas, marialuisa ginkgo, Co-Q10, ajo o la hierba de Franks??Steve Esta lista puede no incluir todos los medicamentos y suplementos que pueden afectar el desempe??o de trinidad medicamento. Hable con trinidad proveedor de atenci??n m??dica y farmac??utico. ?? C??mo sathish un diluyente de la shawn de manera hatch Cuando tome un anticoagulante, deber?? ser cuidadoso por trinidad seguridad. Si lory demasiado anticoagulante, estar?? en riesgo de tener hemorragias (sangrado). Si lory muy poco anticoagulante, estar?? enriesgo de tener un derrame cerebral.??Siga estas pautas. Adem??s, siga todas las que le haya dado trinidad proveedor de atenci??n m??dica. ??? Max los an??lisis de shawn seg??n le indiquen. La warfarina requiere de un an??lisis regular al menos juliano vez al mes. [place] no aplica para el lenin de los medicamentos. ??? Aseg??rese de informar a trinidad proveedor de atenci??n m??dica acerca de todos los medicamentos que usa. Incluya los medicamentos de venta nurys, las vitaminas y las hierbas medicinales. No ingiera marcia??n medicamento que trinidad proveedor de atenci??n m??dica desconozca. [place] incluye los medicamentos de venta nurys. Algunos medicamentos pueden afectar la forma en la que funcionan ciertos diluyentes de la shawn. [place] puede causarle graves problemas. ??? Informe a todos willis proveedores de atenci??n m??dica que lory diluyentes de la shawn. [place] incluye al dentista, al quiropr??ctico, a los enfermeros a domicilio y otros proveedores de atenci??n m??dica. ??? Lleve juliano tarjeta de identificaci??n m??dica o un brazalete de alerta m??dica que diga que usted usa diluyentes de la shawn. ??? Antes de sathish juliano aspirina, consulte a trinidad proveedor de atenci??n m??dica. La aspirina puede aumentar significativamente trinidad riesgo de sangrado. Los diluyentes de la shawn hacen que el sangrado sea m??s dif??cil de detener. Incluso juliano chencho??a lesi??n podr??a provocar un sangrado excesivo. Juliano lesi??n puede causar juliano hemorragia dentro del cuerpo sin que usted lo sepa. Para protegerse, max lo siguiente: ??? Evite las actividades que puedan provocarle alguna lesi??n. ??? Use un cepillo de dientes de cerdas suaves e hilo dental encerado.??? Use juliano rasuradora el??ctrica en lugar de juliano hoja de afeitar. ??? No camine descalzo. ??? No se recorte los callos usted mismo. ?? Informaci??n importante de seguridad Cuando tome un diluyente de la shawn, deber?? ser cuidadoso por trinidad seguridad. Siempre tenga en cuenta lo siguiente: ??? T??dailey exactamente seg??n le indicaron. Siga las instrucciones del proveedor de atenci??n m??dica. Los diluyentes de la shawn pueden ser peligrosos si no se ness adecuadamente. Los diluyentes de la shawn reducen las probabilidades de que se formen co??gulos sangu??neos. Si lory demasiada cantidad, puede provocar juliano hemorragia interna o externa. ??? T??dailey a la misma hora todos los d??as. T??dailey con un vaso lleno de agua, junto con la comida o no. Si se saltea juliano dosis, llame a trinidad proveedor de atenci??n m??dica de inmediato para tyler cu??nto debe sathish. No tome juliano dosis doble. ??? H??gase an??lisis de shawn con regularidad.??Quiz??s deba hacerse an??lisis de shawn de forma regular mientras est?? tomando anticoagulantes. Estos an??lisis incluyen an??lisis de shawn para comprobar trinidad ??ndice internacional normalizado (INR, por trinidad sigla en ingl??s) y trinidad tiempode protrombina (PT, por trinidad sigla en ingl??s). Estos an??lisis muestran la rapidez con la que se coagula trinidad shawn.??Tambi??n le glen??n marilou??dicamente un an??lisis de shawn completo (CBC, por trinidad sigla en ingl??s).??[place] se realiza para tyler c??mo est?? trinidad shawn y trinidad nivel de plaquetas. Es importante vigilar ambos valores si est?? tomando warfarina. Preg??ntele a trinidad proveedor de atenci??n m??dicasi debe evitar tambi??n las ??reas de gran altitud. Tambi??n puede averiguar si puede hacerse los an??lisis de shawn en casa. Preg??ntele a trinidad proveedor con qu?? frecuencia debe realizarse los an??lisis de shawn para el diluyente de la shawn que est?? tomando. ??? Inf??rmele al proveedor de atenc i??n m??dica los cambios en willis medicamentos.??Algunos medicamentos pueden afectar willis niveles de INR y PT.??[place] incluye los medicamentos de venta nurys, los suplementos charity marialuisa la vitamina??K y las hierbas medicinales. ??? No cambie trinidad alimentaci??n. Lo que come tambi??n puede afectar willis niveles de INR y PT. Por lo tanto, intente seguir juliano dieta estable. Es muy importante comer la misma cantidad de alimentos con alto contenido de vitamina??K. Hable con el proveedor de atenci??n m??dica antes de realizar alg??n cambio en trinidad alimentaci??n. ??? Tenga cuidado de no lastimarse. Recuerde que la warfarina aumenta el riesgo de tener hemorragias. Si tiene juliano lesi??n grave y est?? preocupado por juliano hemorragia interna o externa, llame a trinidad proveedor. ?? Anticoagulantes: hacerse an??lisis de shawn con regularidad Le realizar??n 2??an??lisis para tyler c??mo coagula triindad shawn. A emanuel se lo llama tiempo de protrombina (PT). El otro es el ??ndice internacional normalizado (INR). ??? H??gase los an??lisis de shawn con la frecuencia que le indicaron. ??? Asista a las citas de seguimiento con trinidad proveedor de atenci??n m??dica seg??n le hayan indicado. Los resultados pueden demorar un par de horas. Llame para conocer los resultados de trinidad an??lisis. Preg??ntele tambi??n si debe efectuar cambios en trinidad dosis o dieta. ??? Si se realiza los an??lisis de shawn en un lugar distinto del consultorio de trinidad proveedor de atenci??n m??dica, ll??dailey apenas tenga los resultados. Mi pr??ximo an??lisis de shawn para medir el PT/INR es el (fecha) a las (hora), y lo realizar?? (nombre del proveedor de atenci??n m??dica o de la cl??eleuterio). El nombre del proveedor de atenci??n m??dica que supervisa el tratamiento anticoagulante es . El n??fozia de tel??fono es . ?? Preste atenci??n a lo que come La vitamina??K es un nutriente que se encuentra en ciertos alimentos.??La vitamina??K ayuda a coagular la shawn. Por eso, tiene que controlar cu??nto come de los alimentos que contienen vitamina??K.Estos alimentos pueden afectar el funcionamiento de los anticoagulantes. ??? Trate de que trinidad alimentaci??n sea relativamente la misma todos los d??as. Si cambia trinidad dieta por la tish??n que fuese, por ejemplo, debido a juliano enfermedad o para bajar de peso, notifique a trinidad proveedor de atenci??n m??dica. ??? Coma la misma cantidad de alimentos con alto contenido de vitamina??K todos los d??as. Estos incluyen rick??rragos, palta, br??coli, repollo, col rizada, espinaca y otros tipos de vegetales verdes. ??? Limite la ingesta de aceites con alto contenido en vitamina??K de 2 a 4??cucharadas por d??a. [place] incluye aceites tales marialuisa el de soja, canola y agrawal ??? Pregunte a trinidad proveedor de atenci??n m??dica si deber??a evitar beber alcohol mientras est?? tomando un antico agulante. ??? No agustin los t??s que contienen meliloto (tr??faith richie) o asp??madisyn (asperilla) ni frijoles tonka. ??? Hable con trinidad proveedor de atenci??n m??dica y el farmac??utico sobre alimentos o ingredientes que pueden afectar los niveles del diluyente de la shawn. Entre estos est??n el jugo detoronja, los ar??ndanos y el jugo de ar??ndanos, el aceite de pescado, el ajo, el jengibre, el regaliz, la c??rcuma, los t??s de hierbas y los suplementos dietarios. Esta lista puede no incluir todos los alimentos e ingredientes que pueden afectar el desempe??o de trinidad medicamento. Hable con trinidad proveedor de atenci??n m??dica y farmac??utico. ?? Cu??ndo llamar a trinidad proveedor de atenci??n m??dica Llame de inmediato a trinidad proveedor de atenci??n m??dica en cualquiera de los siguientes casos: ??? Hemorragia que no se detiene al cabo de 10??minutos ??? Un per??odo menstrual abundante o sangrado entre per??odo y per??odo ??? Tos o v??mitos con shawn ??? Diarrea con shawn ??? Sangrado de hemorroides? Orina de color oscuro ??? Heces negras ??? Marcas rojizas o negras y azuladas en la piel,que se vuelven m??s grandes ??? Mareos ??? Dolor en el pecho ??? Dificultad para respirar ??? Sarpullido ??? Picaz??n ??? Hinchaz??n ??? Dificultades para tragar ?? Last Reviewed Date: 2021 ?? [id number] [employer]. Todos los derechos reservados. Esta informaci??n no pretende sustituir la atenci??n m??dica profesional. S??lo trinidad m??dico puede diagnosticar y tratar un problema de leydi. ?? * Torrey Wilder MD: PERFORM Event Display: Patient Education Leaflets Authored Date: [id number] [facility] Adult Asthma ?? 336 Plan de acci??n contra el asma (adultos) ?? Nombre: Mejor valor personal de flujo m??ximo: Fecha: ___/___/___ ?? N??fozia de tel??fono del proveedor de atenci??n m??dica: ?? A horas no laborales: ?? DAMON LANETTE El flujo m??ximo est?? por encima de (80%) Ir a la consulta cada meses S??ntomas: ??? Ninguno ??? El asma no interfiere con trinidad asistencia al trabajo, willis actividades o el aylin??o ?? Medicamentos para el asma: Medicamentos de control que deben tomarse todos los d??as: Alivio r??pido.?? Sathish minutos antes de hacer ejercicio: Otros medicamentos: ? DAMON AMARILLA El flujo m??ximo se encuentra entre (50%) y (80%) Llamar al proveedor de atenci??n m??dica si el ni??o est?? en la damon amarilla shaneka horas S??ntomas: ??? Tos ??? Silbidos al respirar ??? Falta de aliento ??? Opresi??n en el pecho ? Medicamentos para el asma: Medicamentos de alivio r??pido.?? Sathish para aliviar s??ntomas: Medicamento(s) diario(s) para controlar el asma.?? Aumentar shaneka d??as: ?? Otros medicamentos: ?? Sathish shaneka d??as: ? DAMON TERRA ?? Llame 911 si usted tiene: ??? Dificultad severa para respirar ??? Problemas para caminar o terminarsus frases ??? Labios o dedos azulados ?? El flujo m??ximo es inferior a (50%) ?Llamar al proveedor de atenci??n m??dica! ?? S??ntomas: ??? Tos o silbidos constantes al respirar ??? Dificultad para respirar en resposo ??? S??ntomas severa ?? Medicamentos para el asma: Medicamentos de alivio r??pido.?? Sathish para aliviar s??ntomas: Medicamento(s) diario(s) para controlar el asma.?? Aumentar shaneka d??as: ?? Otros medicamentos: ?? A??adir shaneka d??as: ? Patient Care team information Care Team Personnel Name: Carlos PAREDES, Haley Position: S RN Member Role: Primary Care Nurse Name: Jessica Perrin MD Position: [facility] Physician - Primary Care Member Role: PCP Address: Address: [address] [place] [address]- Care Team Related Persons Name: SANDY BOYCE Address: home [address] [place] [address] Name: COLT BOYCE Address: [address] [place] [address]
--- OUTSIDE RECORDS SUMMARY | 2024-07-06 12:03 | XMS_ITS | Continuity of Care Document ---
Author Organization [facility] Address Unknown Care Team Providers Care Human Resources Receptionist Name Role Phone Jessica Perrin MD Primary Care Physician Encounter [facility] Date(s): 02/11/22 - 03/13/22 [facility] Allergies, Adverse Reactions, Alerts Substance [...] Vaccine Date Status Refusal Reason SARS-CoV-2 mRNA (lvqcoxp-[id number]-[id number]) vax 02/17/22 Given influenza virus vaccine, inactivated [...] 06/23/21 Recorded SARS-CoV-2 (COVID-19) mRNA BNT-162b2 vac 3/6/21 Given SARS-CoV-2 (COVID-19) mRNA BNT-162b2 vac 10/26/20 [...] GIVEN 9Admin Note: GIVEN BY NURSE Medications adult mask for nebulizer machine and tubing adult mask for nebulizer machine and tubing, See Instructions, # 1 each, Refills 0, Tot. Refills 0,Maintenance, use as directed with nebulizer for updraft use Dx J45.909, , 02/17/22 13:19:00 EDT, Supply Start Date: 02/17/22 Status: Ordered albuterol 0.083% inhalation solution 3 mL = 2.5 mg, Inhalation, Every 6 hours, # 25 each, 2 Refills, Maintenance, 02/04/22 14:43:00 EDT,[facility] #[id number], 165, cm, 10/29/21 12:16:00 EST, Height, 89.5, kg, 04/23/21 21:43:00 EDT, Dry Weight Start Date: 02/04/22 Stop Date: 05/05/22 Status: Ordered budesonide 0.5 mg/2 mL inhalation suspension 0.5 mg, 2, mL, Neb, 2 times a day, # 120 mL, Refills 5, Tot. Refills 5, Maintenance, 02/11/22 14:27:00 EDT, Suspension, Route to Pharmacy Electronically, [id number], [facility] #[id number], 165, cm, 02/09/22 15:14:00 EDT... Start Date: 02/11/22 Status: Ordered calcium (as citrate)-vitamin D 315 mg-250 intl units oral tablet 2 tablet, By Mouth, 2 times a day, Tej, # 360 tablet, 3 Refills, Maintenance, 03/26/21 13:03:00 EDT, Tablet, [facility] #[id number], 2 tablet By Mouth 2 times a day,x90 days,Instr:Tej, 165, cm, 03/26/21 11:57:00 EDT, Height, 88, kg, 11/03/19 18... Start Date: 03/26/21 Stop Date: 03/21/22 Status: Ordered celecoxib 100 mg oral capsule 1 capsule = 100 mg, By Mouth, 2 times a day, PRN knee pain, # 60 capsule, 5 Refills, Maintenance, 10/22/21 10:44:00 EST, Capsule, [facility] #[id number], 165, cm, 10/22/21 9:05:00 EST, Height, 89.5, kg, 04/23/21 21:43:00 EDT, Dry Weight Start Date: 10/22/21 Status: Ordered citalopram 20 mg oral tablet 20 mg, 1, tablet, By Mouth, Daily, # 90 tablet, Refills 3, Tot. Refills 3, Maintenance, 07/12/21 18:12:00 EDT, Route to Pharmacy Electronically, [facility] #[id number] is awared of interaction w rosaseshelli, 165, cm, 04/23/21 21:43:00 EDT, He... Start Date: 07/12/21 Status: Ordered Clarinex 5 mg oral tablet 1 tablet = 5 mg, By Mouth, Daily, # 90 tablet, 3 Refills, Maintenance, 02/17/22 13:13:00 EDT, Tablet, [facility] #[id number], 165, cm, 02/17/22 12:49:00 EDT, Height, 88.9, kg, 02/09/22 15:14:00 EDT, Dry Weight Start Date: 02/17/22 Status: Ordered EPINEPHrine 0.3 mg injectable solution = 0.3 mg, Intramuscular, Once, PRN Anaphylactic Reaction, # 1 each, 0 Refills, Soft Stop, 10/22/21 10:11:00 EST, [facility] #[id number], 165, cm, 10/22/21 9:05:00 EST, Height, 89.5, kg, 04/23/2121:43:00 EDT, Dry Weight Start Date: 10/22/21 Status: Ordered fluticasone 50 mcg/inh nasal spray See Instructions, SPRAY 2 TIMES IN EACH NOSTRILS EVERY DAY. NEEDED FOR ALLERGY SEASON. WHEN SPRAYING KEEP HEAD DOWN, # 16 Gm, 11 Refills, 02/17/22 13:14:00 EDT, [facility] #[id number], 30, SPRAY 2 TIMES IN EACH NOSTRILS EVERY DAY. NEEDED FO... Start Date: 02/17/22 Status: Ordered formoterol 10 mcg/mL inhalation solution 2 mL = 20 mcg, Inhalation, 2 times a day, using a continuous flow nebulizer, # 60 each, 5 Refills, Maintenance, 02/11/22 14:28:00 EDT, Solution, [facility] #[id number], 165, cm, 02/09/22 15:14:00 EDT, Height, 88.9, kg, 02/09/22 15:14:00 EDT, Dry... Start Date: 02/11/22 Status: Ordered hydrALAZINE 10 mg oral tablet 1, tablet, By Mouth, 3 times a day, Increase dose, # 90 tablet, Refills 11, Tot. Refills 11, 10/22/21 10:40:00 EST, Route to Pharmacy Electronically, [facility] #[id number], 165, cm, 10/22/21 9:05:00 EST, Height, 89.5, kg, 04/23/21 21:43:00 EDT,... Start Date: 10/22/21 Status: Ordered hydrochlorothiazide 12.5 mg oral tablet 1 tablet = 12.5 mg, By Mouth, Daily, discontinue HCTZ/lisinopril 25mg /20mg, # 30 tablet, 11 Refills, Maintenance, 10/29/21 13:48:00 EST, Tablet, [facility] #[id number], 165, cm, 10/29/21 12:16:00 EST, Height, 89.5, kg, 04/23/21 21:43:00 EDT, . Start Date: 10/29/21 Status: Ordered levothyroxine 0.05 mg oral tablet 1 tablet, By Mouth, Daily, # 90 tablet, 1 Refills, [facility] #[id number], 165, cm, 10/29/21 12:16:00 EST, Height, 89.5, kg, 04/23/21 21:43:00 EDT, Dry Weight Start Date: 11/20/21 Status: Ordered lisinopril 40 mg oral tablet 1 tablet = 40 mg, By Mouth, Daily, discontinue HCTZ/lisinopril 25mg /20mg, # 30 tablet, 11 Refills,Maintenance, 10/29/21 13:47:00 EST, Tablet, [facility] #[id number], Partial fill upon patient request if the prescription is for a schedule II op... Start Date: 10/29/21 Status: Ordered Matzim [place] 360 mg/24 hours oral tablet, extended release 1 tablet, By Mouth, Daily, # 90 tablet, 3 Refills, 02/17/22 13:08:00 EDT, [facility] #[id number], 165, cm, 02/17/22 12:49:00 EDT, Height, 88.9, kg, 02/09/22 15:14:00 EDT, Dry Weight Start Date: 02/17/22 Status: Ordered metFORMIN 500 mg oral tablet 1 tablet, By Mouth, 2 times a day, # 180 tablet, 3 Refills, Maintenance, 10/13/21 14:33:00 EST, [facility] #[id number], 165, cm, 04/23/21 21:43:00 EDT, Height, 89.5, kg, 04/23/21 21:43:00 EDT, Dry Weight Start Date: 10/13/21 Status: Ordered Nebulizer/Compressor See Instructions, # 1 each, Refills 0, Tot. Refills 0, Maintenance, use as needed for wheezing every 4-6 hours Dx bronchial asthma, bronchial asthma, 02/17/22 13:17:00 EDT, Supply Start Date: 02/17/22 Status: Ordered omeprazole 20 mg oral enteric coated capsule 1 capsule = 20 mg, By Mouth, Daily, Take 30 mins before breakfast MD is awared of interaction with citalopram, # 30 capsule, 11 Refills, Maintenance, 12/18/21 15:48:00 EDT, [facility] Capsule, [facility] #[id number], 165, cm, 10/29/21 12:16:00 EST,... Start Date: 12/18/21 Status: Ordered pravastatin 80 mg oral tablet 1 tablet, By Mouth, Daily, # 90 tablet, 1 Refills, Maintenance, 01/05/22 10:39:00 EDT, [facility] #[id number], 165, cm, 10/29/21 12:16:00 EST, Height, 89.5, kg, 04/23/21 21:43:00 EDT, Dry Weight Start Date: 01/05/22 Status: Ordered Premarin Vaginal 0.625 mg/gm cream with applicator = 0.5 Gm, Vaginally, Every Wednesday and , # 42.5 Gm, 11 Refills, Maintenance, 03/26/21 13:01:00 EDT, [facility] #[id number], 0.5 Gm Vaginally Every Wednesday and , 165, cm, 03/26/21 11:57:00 EDT, Height, 88, kg, 11/03/19 18:19:00 EST,... Start Date: 03/26/21 Status: Ordered Remeron 15 mg oral tablet 0.5 tablet = 7.5 mg, By Mouth, Daily at bedtime, Decreased dose, # 45 tablet, 3 Refills, Maintenance, 03/26/21 13:13:00 EDT, Tablet, [facility] #[id number], 165, cm, 03/26/21 11:57:00 EDT, Height, 88, kg, 11/03/19 18:19:00 EST, Dry Weight Start Date: 03/26/21 Stop Date: 03/21/22 Status: Ordered Singulair 10 mg oral tablet 10 mg, 1, tablet, By Mouth, Daily at bedtime, 90 days supply, # 90 tablet, Refills 1, Tot. Refills 1, Maintenance, 12/16/21 10:05:00 EDT, Route to Pharmacy Electronically, [facility] #[id number], 165, cm, 10/29/21 12:16:00 EST, Height, 89.5, kg,... Start Date: 12/16/21 Status: Ordered Problem List Condition Effective Dates Status Health Status Inform ant Allergic rhinitis(Confirmed) Active Anxiety disorder(Confirmed) Active Atrophic vaginitis(Confirmed) Active Depression(Confirmed) Active Diabetes mellitus type 2(Confirmed) Active Diabetic neuropathy(Confirmed) Active Diabetic peripheral angiopathy(Confirmed) 12/25/14 Active Hypertension(Confirmed) Active Hypothyroidism(Confirmed) Active Insomnia(Confirmed) Active Mixed hyperlipidemia(Confirmed) Active Obese class I(Confirmed) Active Obstructive sleep apnea(Confirmed) 1 12/27/17 Active OA (osteoarthritis) of knee(Confirmed) Active Osteopenia(Confirmed) 2, 3, 4, 5, 6, 7 08/09/06 Active *[id number] Care Partn er Dolores Cabrera(Confirmed) Active Varicose vein(Confirmed) Active 1Mild obstructive sleep apnea per home [...]
--- OUTSIDE RECORDS SUMMARY | 2024-07-06 12:03 | XMS_ITS | Continuity of Care Document ---
Author Organization [facility] Address [address] [place] [id number]- Care Team Providers Care Foreign Broadcast Specialist Name Role Phone Marychuy MCCLAIN, Jessica Primary Care Physician Encounter [facility] Date(s): 05/18/24 - 05/20/[address] [address]- Encounter Diagnosis Abdominal pain(Final) - 05/18/24 COPD with asthma(Final) - 05/18/24 Elevated troponin(Final) - 05/19/24 Discharge Disposition: A-D/C Home Attending Physician: Beth Rooney MD Admitting Physician: Marcio Euceda MD Referring Physician: Not on Staff, Referring MD Allergies, Adverse Reactions, Alerts Substance Reaction Severity Status dexamethasone Swelling of throat 10-DEC-2015 19:14:30< $> Persistent Mild Active tramadol Itch Persistent Mild Active predniSONE [...] virus vaccine, inactivated 5 07/29/06 Gi javon [id number] 12y+ bivalent booster vax 03/24/23 Given [id number] 12y+ bivalent booster vax 07/28/22 Recorded SARS-CoV-2 mRNA ([id number]-lswry) vax 02/17/22 Given SARS-CoV-2 (COVID-19) mRNA BNT-162b2 [...] Refills, Maintenance, 01/19/24 8:32:00 EDT, ER Tablet, [facility] #[id number], Partial fill upon patient request if th... Start Date: 01/19/24 Status: Ordered Albuterol (Eqv-ProAir HFA) 90 mcg/inh inhalation aerosol 2 puffs, Inhalation, Every 6 hours, PRN Wheezing/Shortness of Breath, # 8.5 Gm, 5 Refills, Maintenance, 01/19/24 8:30:00 EDT, [facility] #[id number], If pump is not covered, it can [...] 01/19/24 8:40:00 EDT, Route to Pharmacy Electronically, [id number], [facility] #[id number], 165, cm, 01/19/24 7:55:00 EDT, Height, 85.... Start Date: 01/19/24 Status: Ordered calcium (as citrate)-vitamin D 315 mg-250 intl units oral tablet 2 tablet, By Mouth, 2 times a day, # 360 tablet, 3 Refills, Maintenance, 03/18/24 10:33:00 EDT, [facility] #[id number], 2 tablet By Mouth 2 times a day,x90 days, 165, cm, 01/19/24 7:55:00 EDT, Height, 85.45, kg, 12/23/23 9:04:00 EDT, Dry Weight Start Date: 03/18/24 Stop Date: 03/13/25 Status: Ordered ciclopirox 8% topical solution 1 application, Topically, Daily, as directed to affected area toenails, # 6.6 mL, 11 Refills, Maintenance, 01/19/24 9:20:00 EDT, Solution, [facility] #[id number], ., 1 application Topically Daily,Instr:as directed; to affected area toenails, 165... Start Date: 01/19/24 Status: Ordered Clarinex 5 mg oral tablet 1 tablet = 5 mg, By Mouth, Daily, # 90 tablet, 3 Refills, Maintenance, 03/18/24 10:23:00 EDT, Tablet, [facility] #[id number], 165, cm, 01/19/24 7:55:00 EDT, Height, 85.45, kg, 12/23/23 9:04:00 EDT, Dry Weight Start Date: 03/18/24 Stop Date: 03/13/25 Status: Ordered Compression- Lower Extremity (Knee High) See Instructions, # 2 each, Refills 11, Tot. Refills 11, Maintenance, use daily; closed toes; 15-20mmHg. Dx peripheral vascular insufficiency I 87.2, 03/24/23 10:24:00 EDT, Compound Start Date: 03/24/23 Status: Ordered diclofenac 1% topical gel = 2 Gm, Topically, 4 times a day, # 100 Gm, 11 Refills, Maintenance, 01/19/24 8:42:00 EDT, Gel, [facility] #[id number], ., 165, cm, 01/19/24 7:55:00 EDT, Height, 85.45, kg, 12/23/23 9:04:00 EDT,Dry Weight Start Date: 01/19/24 Stop Date: 07/05/24 Status: Ordered diltiazem 180 mg/24 hours oral capsule, extended release 180 mg, CD Capsule, By Mouth, 05/20/24 9:00:00 EDT Start Date: 05/20/24 Stop Date: 05/20/24 Status: Completed Eliquis 5 mg oral tablet 1 tablet, By Mouth, 2 times a day, # 180 tablet, 3 Refills, Maintenance, 01/19/24 9:20:00 EDT, [facility] #[id number], 165, cm, 01/19/24 7:55:00 EDT, Height, 85.45, kg, 12/23/23 9:04:00 EDT, DryWeight Start Date: 01/19/24 Status: Ordered EPINEPHrine 0.3 mg injectable solution = 0.3 mg, Intramuscular, Once, PRN Anaphylactic Reaction, # 1 each, 0 Refills, Soft Stop, 10/22/21 10:11:00 EST, [facility] #[id number], 165, cm, 10/22/21 9:05:00 EST, Height, 89.5, kg, 04/23/2121:43:00 EDT, Dry Weight Start Date: 10/22/21 Status: Ordered escitalopram 10 mg oral tablet 1 tablet = 10 mg, By Mouth, Daily, discontinue citalopram, # 30 tablet, 11 Refills, Maintenance, 01/19/24 8:34:00 EDT, Tablet, [facility] #[id number], Partial fill upon patient request if the prescription is for a schedule II opioid drug., 165, c... Start Date: 01/19/24 Status: Ordered fluticasone 50 mcg/inh nasal spray 2 sprays, Nares, Both, Daily, Use every day during allergy season. While using spray keep head down., # 3 each, 3 Refills, Maintenance, 03/18/24 10:28:00 EDT, [facility] #[id number], ., 2 spraysNares, Both Daily,x90 days,Instr:Use every day duri... Start Date: 03/18/24 Stop Date: 03/13/25 Status: Ordered formoterol 10 mcg/mL inhalation solution See Instructions, USE 2 ML VIA NEBULIZER TWICE DAILY USING A CONTINUOUS FLOW VIA NEBULIZER, # 120 mL, 11 Refills, Maintenance, 01/19/24 8:40:00 EDT, [facility] #[id number], 165, cm, 01/19/24 7:55:00 EDT, Height, 85.45, kg, 12/23/23 9:04:00 EDT, D... Start Date: 01/19/24 Status: Ordered hydrALAZINE 25 mg oral tablet 50 mg, Tablet, By Mouth, 05/20/24 8:15:00 EDT Start Date: 05/20/24 Stop Date: 05/20/24 Status: Completed hydrALAZINE 25 mg oral tablet See Instructions, By mouth 2 tab in 7 AM, 1 tab at1PM and 2 PM at 4PM 90-day supply, # 450 tablet, Refills 3, Tot. Refills 3, Maintenance, 01/19/24 9:19:00 EDT, Instructions Replace Required Details,Route to Pharmacy Electronically, [facility] Start Date: 01/19/24 Status: Ordered Juxtafit Knee-high [...] tablet, 3 Refills, Maintenance, 03/18/24 10:31:00 EDT, [facility] #[id number], 165, cm, 01/19/24 7:55:00 EDT, Height, 85.45, kg, 12/23/23 9:04:00 EDT, Dry Weight Start Date: 03/18/24 Stop Date: 03/13/25 Status: Ordered lisinopril 20 mg oral tablet 40 mg, Tablet, By Mouth, 05/20/24 9:00:00 EDT Start Date: 05/20/24 Stop Date: 05/20/24 Status: Completed lisinopril 40 mg oral tablet 1 tablet = 40 mg, By Mouth, Daily in AM, 11 AM Decreased dose, # 90 tablet, 3 Refills, Maintenance,03/18/24 10:12:00 EDT, Tablet, [facility] #[id number], 165, cm, 01/19/24 7:55:00 EDT, Height, 85.45, kg, 12/23/23 9:04:00 EDT, Dry Weight Start Date: 03/18/24 Stop Date: 03/13/25 Status: Ordered Matzim LA 180 mg/24 hours oral tablet, extended release 1 tablet = 180 mg, By Mouth, Daily in AM, Take at 11 AM, # 90 tablet, 3 Refills, Maintenance, 03/18/24 9:58:00 EDT, ER Tablet, [facility] #[id number], 165, cm, 01/19/24 7:55:00 EDT, Height, 85.45, kg, 12/23/23 9:04:00 EDT, Dry Weight Start Date: 03/18/24 Stop Date: 03/13/25 Status: Ordered MetFORMIN (Eqv-Glucophage XR) 500 mg oral tablet, extended release 1 tablet, By Mouth, 2 times a day with meals, INCREASE DOSE, # 180 tablet, 3 Refills, Maintenance, 12/22/23 16:13:00 EDT, [facility] #[id number], 165, cm, 12/20/23 5:43:00 EDT, Height, 84.5, kg,12/19/23 17:15:00 EDT, Dry Weight Start Date: 12/22/23 Status: Ordered Metoprolol XL Tablet 25 mg, XL Tablet, By Mouth, 05/20/24 9:00:00 EDT Start Date: 05/20/24 Stop Date: 05/20/24 Status: Completed metoprolol 25 mg oral tablet, extended release 25 mg, 1, tablet, By Mouth, Daily, # 30 tablet, Refills 11, Tot. Refills 11, Maintenance, 01/19/24 8:40:00 EDT, Route to Pharmacy Electronically, [facility] #[id number], 165, cm, 01/19/24 7:55:00 EDT, Height, 85.45, kg, 12/23/23 9:04:00 EDT, Dry... Start Date: 01/19/24 Status: Ordered mirtazapine 15 mg oral tablet 0.5 tablet, By Mouth, Daily at bedtime, # 45 tablet, 3 Refills, Maintenance, 03/18/24 10:22:00 EDT,[facility] #[id number], 165, cm, 01/19/24 7:55:00 EDT, Height, 85.45, kg, 12/23/23 9:04:00 EDT, Dry Weight Start Date: 03/18/24 Stop Date: 03/13/25 Status: Ordered montelukast 10 mg oral tablet 1, tablet, By Mouth, Daily at bedtime, SUPPLY., # 90 tablet, Refills 3, Tot. Refills 3, Maintenance, 06/05/23 14:50:00 EDT, Route to Pharmacy Electronically, [facility] #[id number], 160, cm, 03/24/23 10:19:00 EDT, Height, 89.54, kg, 02/09/23 16:4... Start Date: 06/05/23 Status: Ordered Nucala Prefilled Autoinjector 100 mg/mL subcutaneous solution = 100 mg, Subcutaneous Infusion, Every 28 days, j45.40, # 1 each, 11 Refills, Maintenance, 01/12/2414:58:00 EDT, [facility], Partial fill upon patient request if the prescription isfor a schedule II opioid drug., 165, cm, 01/04/24 1... Start Date: 01/13/24 Status: Ordered Eqs-bel-bddgc medical-grade oxford diabetic shoes, depth or hightop Hot-hvi-eicpo medical-grade oxford diabetic shoes, depth or hightop, [...] capsule, 3 Refills, Maintenance, 03/18/24 10:28:00 EDT, [facility] #[id number], 165, cm, 01/19/24 7:55:00 EDT, Height, 85.45, kg, 12/23/23 9:04:00 EDT, Dry Weight Start Date: 03/18/24 Stop Date: 03/13/25 Status: Ordered pravastatin 80 mg oral tablet 1 tablet, By Mouth, Daily, # 90 tablet, 3 Refills, Maintenance, 03/24/23 10:32:00 EDT, [facility] #[id number], 160, cm, 03/24/23 10:19:00 EDT, Height, 89.54, kg, 02/09/23 16:45:00 EDT, Dry Weight Start Date: 03/24/23 Stop Date: 03/18/24 Status: Ordered Premarin Vaginal 0.625 mg/gm cream with applicator See Instructions, APPLY 1/2 GRAM IN THE VAGINA EVERY WEDNESDAY AND WEDNESDAY, # 30 Gm, 11 Refills, Maintenance, 01/19/24 9:20:00 EDT, [facility] #[id number], 30, APPLY 1/2 GRAM IN THE VAGINA [...] in AM, at 11 AM Given by fitter/welder, Dr. Indio Mason, # 30 tablet, Refills 0, Maintenance, 10/16/22 16:24:00 EST Start Date: 10/16/22 Status: Ordered Test Strips See Instructions, # 50 each, Refills 11, Tot. Refills 11, Maintenance, use daily for blood sugar testing once a day Dx DM type 2 E11.9 One Touch Ultra, Diabetes mellitus type 2, 04/17/24 18:16:00 EDT, Compound, 165, cm, 04/05/24 9:15:00 EDT, Height... Start Date: 04/17/24 Status: Ordered triamcinolone 0.025% topical cream 1 application, Topically, 3 times a day, PRN itching Apply to lower extremities Lao, # 30 Gm, 2Refills, Maintenance, 02/23/24 8:27:00 EDT, [facility] #[id number], 1 application Topically 3 times a day,Instr:PRN itching ; Apply to lower e... 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 Pt states she took her BP meds, today. Pt reports head pressure, denies falls. SBP @home >200; Reason: Shortness of Breath; Clinical Question(s): CHF COMPARISON: 12/19/2023 FINDINGS: LINES AND TUBES: None. LUNGS AND PLEURA: Clear lungs. Normal pulmonary vascularity. No pleural effusion. No pneumothorax. HEART, MEDIASTINUM AND STERLING: Heart is normal in size. Normal mediastinal and hilar contour. BONES AND SOFT TISSUES: There are degenerative changes of the thoracic spine. IMPRESSION: No acute abnormality. WSN: [id number] Ordering Physician: Natty Carlos Dictated By: Hardik Najera MD Dictated Date/Time: 05/19/24 8:22 am Reviewed By: Hardik Najera MD Signed By: Hardik Najera MD Signed Date/Time: 05/19/24 8:22 am Transcribed By: SAJAN Transcribed Date/Time: 05/19/24 8:19 am * Exam Date Time Procedure Performing Provider Status 05/19/24 12:[address] Abd/Pelvis W/ IV Contrast Only Shannan Vargas; Auth (Verified) Notes: (CT Abd/Pelvis W/ IV Contrast Only) Reason For Exam: Abdominal pain;Other: RESULT: CT Abd/Pelvis W/ IV Contrast Only CT Abd/Pelvis W/ IV Contrast Only Hx of Present Illness: Pt coming from home w chest tightness, palpitations, and associated anxiety.Pt reports sx starting after getting out of shower. Pt states she took her BP meds, today. Pt reports head pressure, denies falls. SBP @home >200; Reason: Other:; Abdominal pain; Clinical Question(s): Diverticulitis; abscess; Order Comment: TECHNIQUE: Spiral CT through the abdomen and pelvis with IV contrast formatted in 3 planes. 100 cc of Omnipaque 300 was administered intravenously. This study was performed without oral contrast. Weight-based protocol using automatic tube modulation was used to optimize exposure parameters. CTDIvol Body: 20.60 mGy, DLP Body: 1050 mGy*cm. COMPARISON: 10/14/2022 and multiple priors FINDINGS: Machine Adjuster Leader Case Trim View Findings, Lines and Tubes: None. Visualized Chest: 3 mm left lower lobe calcified granuloma. Otherwise the lungs are clear. No pleural effusion. The heart is normal in size. No pericardial effusion. Diaphragm: Normal. Liver: Normal. Gallbladder: Absent consistent with prior cholecystectomy. Bile ducts: No biliary ductal dilation. Spleen: Normal. Pancreas: Severely atrophic parenchyma unchanged. Adrenal glands: Normal. Kidneys and ureters: No hydronephrosis, stones, or suspicious masses. Bladder: Normal. Reproductive organs: Unremarkable. Stomach, small bowel, and large bowel: A small type I hiatal hernia. Mild diverticulosis of the sigmoid colon without acute diverticulitis. No evidence of bowel obstruction or inflammation. Appendix: Normal. Peritoneum and retroperitoneum: No ascites or pneumoperitoneum. No omental or mesenteric lesions. Lymph nodes: No enlarged lymph nodes. Blood vessels: Mild vascular calcifications but no aneurysm. No evidence of venous thrombosis. Abdominal and pelvic wall: Tiny fat-containing umbilical hernia. Pelvic floor laxity. Bones: Multilevel degenerative changes in the lumbar spine. IMPRESSION: 1. No acute pathology of abdomen and pelvis. 2. Mild diverticulosis of the sigmoid colon without acute diverticulitis. I have personally reviewed the images and I agree with this report. WSN: [id number] Ordering Physician: Natty Carlos Dictated By: John Duncan MD Dictated Date/Time: 05/19/24 6:30 am Reviewed By: Tony Lao MD Signed By: Tony Lao MD Signed Date/Time: 05/19/24 6:35 am Transcribed By: SAJAN Transcribed Date/Time: 05/19/24 1:08 am Vital Signs Most recent to oldest [Reference Range]: 1 2 3 Oxygen Saturation [94-100 %] 97 % (05/20/24 10:55 AM) 95 % (05/20/24 6:47 AM) 96 % (05/20/24 4:05 AM) Pulse Rate [55-90 bpm] 65 bpm (05/20/24 10:55 AM) 77 bpm (05/20/24 8:29 AM) 77 bpm (05/20/24 8:27 AM) Blood Pressure [90-138/55-84 mm Hg] 164/76mm Hg *H* (05/20/24 10:55 AM) 15/54mm Hg *L* (05/20/24 8:54 AM) 151/54mm Hg *H* (05/20/24 8:50 AM) Respiratory Rate [16-30 br/min] 17 br/min (05/20/24 10:55 AM) 16 br/min (05/20/24 6:47 AM) 20 br/min (05/20/24 4:05 AM) Temperature [96.8-100.4 DegF] 98.0 DegF (05/20/24 10:55 AM) 98.0 DegF (05/20/24 6:47 AM) 97.6 DegF (05/20/24 4:05 AM) Mode of Delivery (Oxygen) Room air (05/20/24 10:55 AM) Room air (05/20/24 6:47 AM) Room air (05/20/24 4:05 AM) Blood pressure sites Arm, left (05/20/24 4:05 AM) Arm, left (05/20/24 12:00 AM) Arm, right (05/19/24 7:58 PM) Temperature Route Oral (05/20/24 10:55 AM) Oral (05/20/24 6:47 AM) Oral (05/20/24 4:05 AM) Social History Social History Type Response Smoking Status Never (less than 100 in lifetime) entered on: 03/24/23 Sex Admission evaluation note * Cori MCCLAIN, Michelle: PERFORM, MODIFY, MODIFY Event Display: Admission Note Authored Date: [id number] Patient: ??LYLE, KRUNAL ? Age:??78 Years?Sex:??Female?:??1945?? Chief Complaint/Reason for Consultation Pt coming from home w/ chest tightness, palpitations, and associated anxiety. SBP @home >200. hx Afib, DVT History of Present Illness 75-year-old Lao-speaking female presents to the emergency department from home for a multitude of symptoms including chest pain, palpitations, epigastric discomfort and headache. ?? With pertinent past medical history of DVT???anticoagulated with Eliquban, DM type II, HLD who was in her usual state of health and was coming out of shower when she suddenly started experiencing palpitations and retrosternal chest pain/pressure.?? She came out and took her blood pressure which was high .?? Patient's daughter works at [employer] and lives nearby however has COVID and could not come and attend to her mother.?? 911 was called because patient's symptoms were not improving and bloodpressure was not coming down. ?? Upon presentation, she was found to have elevated BP 194/71, saturating well on room air, afebrile. Initial lab work without leukocytosis, mild anemia 10.9/33.6, platelets 295.?? Her INR is 1.1.?? Found to have a D-dimer of 0.19.?? Mild hypokalemia which was repleted.?? Also documented to have acute kidney injury BUN/creatinine 13/1.16 with lactate at 2.5.?? Found to have negative troponin however increased to 22-20-12. EKG demonstrating normal sinus rhythm, mild ST depression in leads II and aVF with prolonged QTc.? Patient denies any prior similar episodes however does not usually check her blood pressure at home.?? Last seen by her fitter/welder as an outpatient.?? She is compliant with her medications denies smoking/alcohol/recreational drug use.?? Expresses that her parents did have heart problems when they were in 50s/60s. ? While in the ED, patient received NS boluses X3 for lactic acidosis, she received Compazine injection for nausea and Tylenol for headache. Her symptoms including chest pain??and palpitations completely resolved. ?? Patient admitted for further workup and evaluation. Daughter helped??but??in conversation??was also provided with updated medical??issues/planning. Review of Systems General:??Expressing that she has headache Cardiovascular:??Denies any chest pain or palpitations. Pulmonary:??Denies any shortness of breath or cough. GI:??Denies any abdominal pain, nausea, vomiting, diarrhea or constipation. :??Denies any urinary retention ?? Objective Vital Signs?? Temperature: 98 DegF (05/19/24 10:40:00) Temperature Route: Oral (05/19/24 10:40:00) Pulse Rate: 72 bpm (05/19/24 10:40:00) Respiratory Rate: 19 br/min (05/19/24 10:40:00) Systolic Blood Pressure:??164 mm Hg??High (05/19/24 10:40:00) Diastolic Blood Pressure: 68 mm Hg (05/19/24 10:40:00) Blood pressure sites: Arm, right (05/19/24 07:41:00) Mean Arterial Pressure: 100 mm Hg (05/19/24 10:40:00) Pulse Pressure: 96 mm Hg (05/19/24 10:40:00) Oxygen Saturation: 98 % (05/19/24 10:40:00) Mode of Delivery (Oxygen): Room air (05/19/24 10:40:00) Early Warning Score: 0 (05/19/24 10:40:58) ? Physical Exam Constitutional: Alert, in no acute distress. Neck: Supple. No JVD. Respiratory: Clear to auscultation. No wheezing or crackles. No use of accessory muscles. Cardiovascular: S1S2 regular. No murmurs, rubs or gallops. Gastrointestinal: Abdomen soft, non-tender, non-distended. Normal bowel sounds. Extremities: No lower extremity pitting edema. No cyanosis or clubbing. Neurologic: AAOx3, Speech normal. No focal neurological deficits. Assessment/Plan Diagnoses Abdominal pain ??(R10.9) Acute kidney injury ??(N17.9) Acute kidney injury superimposed on chronic kidney disease ??(N17.9) COPD with asthma ??(J44.89) Chest pain ??(R07.9) Diabetes mellitus ??(E11.9) Elevated troponin ??(R79.89) Hypertension, essential ??(I10) Hypertensive emergency without congestive heart failure ??(I16.1) Hypokalemia with normal pH ??(E87.6) Lactic acidosis ??(E87.20) Microcytic anemia ??(D50.9) ?Hypertensive emergency: Essential hypertension Elevated troponin Chest pain: SBP above 180 with endorgan damage including elevated troponin, acute kidney injury more chest pressure plus #. -Patient's BP started improving once home medications were resumed. -Continue with carvedilol, metoprolol, hydralazine, spironolactone -Holding lisinopril given acute kidney injury ? Chest pain: Elevated troponin: Typical chest pain in setting of flat troponin.?? Risk??fators: Diabetic, ??Family history of coronary artery disease. EKG without any ischemic changes, unlikely ACS. Likely type II NSTEMI in setting of hypertensive emergency. -Obtain an echo -Maintain on telemetry -Follow-up cardiology consultation ( no need to heparinize) -Obtain echo -STAT EKG for CP -Management of HTN as above ? Lactic acidosis: Unclear etiology.?? Likely type B lactic acidosis -She is not in sepsis, no evidence of ischemic bowel, no known cirrhosis -Medications reviewed, metformin could be potential culprit, continue to hold it -She has received 2L IVF, given?? hypertension, did not feel it is reasonable to continue given this is not in setting of dehydration/sepsis. -Obtain LFTs -Trend in a.m. ? Diabetes mellitus: Hold metformin ?? Chronic stable medications: -Antiallergy cetirizine 5 mg daily -Escitalopram 10 mg daily -Levothyroxine 50 mcg daily ? Diet: Cardiac DVT prophylaxis: Eliquis CODE STATUS: Full code OMN: Pending echo, telemetry, improved BP Patient is independent. Daughter is healthcare proxy. ?? Histories Allergies Allergies ?(Active and Proposed Allergies Only) dexamethasone? (Severity: Persistent Mild, Onset: Unknown) ?Reactions: Swelling of throat ? 10-DEC-2015 19:14:30<$> predniSONE? (Severity: Persistent Severe, Onset: 11/11/2011) ?Reactions: Itchy skin eruption ?Comments: Not associated with swelling nor shortness of breath tramadol? (Severity: Persistent Mild, Onset: 01/27/2008) ?Reactions: Itch ? Past Medical History/Problem List Active Problems(20) *[phone] Sole Leveler Machine Michelle Cain Allergic rhinitis Anxiety disorder Asthma Atrophic vaginitis Chronic anticoagulation secondary to unprovoked DVT Depression Diabetes mellitus type 2 Diabetic neuropathy Diabetic peripheral angiopathy History of DVT in adulthood Hypertension Hypothyroidism Insomnia Mixed hyperlipidemia OA (osteoarthritis) of knee Obese class I Obstructive sleep apnea Osteopenia Varicose vein ? Past Surgical History Colonoscopy: 03/15/18 Laparoscopic assisted vaginal hysterectomy with repair of cystocele: 2012 Laparoscopy, surgical; cholecystectomy R tallus intrathecal injection ? Social History Alcohol Details:??Use: Current. ??Frequency: 1-2 times per year. Employment/School Details:??Status: Unemployed. Home/Environment Details:??Living situation: Home/Independent. ??Lives with: Alone. 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 Nutrition/Health Details:??Diet: Diabetic. Substance Abuse Details:??Use: Never. Tobacco Details:??Use: Never (less than 100 in lifetime). Electronic Cigarette/Vaping Details:??Electronic Cigarette Use: Never. ? Family History No Family History documented. ? Medications Home Medications Acetaminophen (acetaminophen 650 mg oral tablet, extended release)?2?tab(s)?1,300?Milligram?By Mouth?Every 8 hours?as needed?Pain?(do not crush or chew)(not to exceed 6 tablets/day) Albuterol (Albuterol (Eqv-ProAir HFA) 90 mcg/inh inhalation aerosol)?2?puff(s)?Inhalation?Every 6 hours?as needed?Wheezing/Shortness of Breath apixaban (Eliquis 5 mg oral tablet)?1?tab(s)?By Mouth?2 times a day Budesonide (budesonide 0.5 mg/2 mL inhalation suspension)?Inhalation?2 times a day Calcium And Vitamin D Combination (calcium (as citrate)-vitamin D 315 mg-250 intl units oral tablet)?2?tab(s)?By Mouth?2 times a day?for 90?Days Ciclopirox Topical (ciclopirox 8% topical solution)?1?kristy?Topically?Daily?as directedto affected area toenails Conjugated Estrogens Topical (Premarin Vaginal 0.625 mg/gm cream with applicator)?See Instructions?APPLY 1/2 GRAM IN THE VAGINA EVERY WEDNESDAY AND WEDNESDAY Desloratadine (Clarinex 5 mg oral tablet)?1?tab(s)?5?Milligram?By Mouth?Daily?for 90?Days Diclofenac Topical (diclofenac 1% topical gel)?2?gram?Topically?4 times a day?for 14?Days Diltiazem (Matzim LA 180 mg/24 hours oral tablet, extended release)?1?tab(s)?180?Milligram?By Mouth?Daily in AM?for 90?Days?Take at 11 AM Durable Medical Equipment (Compression- Lower Extremity (Knee High))?See Instructions?use daily; closed toes; 15-20 mmHg. 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 Durable Medical Equipment (Ept-eiw-wyfsj medical-grade oxford diabetic shoes, depth or hightop)?See Instructions?wear every day ??in both foot Dx DM type 2 ??with peripheral neuropathy ICD10 E11.40; DMtype 2 pressure callus 11.628; venous peripheral insuficiency I87.21 pair Durable Medical Equipment (Alcohol Wipes)?See Instructions?use daily ??for blood sugar testing once ??a day Dx ??DM type 2 E11.9 Durable Medical Equipment (Lancets)?See Instructions?use daily for blood sugar testing once ??a day Dx ??DM type 2 E11.9One Touch Delica Durable Medical Equipment (Juxtafit Knee-high Compression Garments(bilateral, left, right) with 2 pairs of liners)?See Instructions?as directed Durable Medical Equipment (Test Strips)?See Instructions?use daily for blood sugar testing once ??a day Dx ??DM type 2 E11.9One Touch Ultra EPINEPHrine (EPINEPHrine 0.3 mg injectable solution)?0.3?Milligram?Intramuscular?Once?as needed?Anaphylactic Reaction Escitalopram (escitalopram 10 mg oral tablet)?1?tab(s)?10?Milligram?By Mouth?Daily?discontinue citalopram Fluticasone Nasal (fluticasone 50 mcg/inh nasal spray)?2?spray(s)?Nares, Both?Daily?for 90?Days?Use every day during allergy season. While using spray keep head down. Fluticasone-Salmeterol (Wixela Inhub 100 mcg-50 mcg inhalation powder)?1?inhalation?Inhalation?2 times a day?J45..0rinse mouth and throat after use Formoterol (formoterol 10 mcg/mL inhalation solution)?See Instructions?USE 2 ML VIA NEBULIZERTWICE DAILY USING A CONTINUOUS FLOW VIA NEBULIZER hydrALAZINE (hydrALAZINE 25 mg oral tablet)?See Instructions?By mouth2 tab in 7 AM, ??1 tab at1PM and ??2 PM at 0MG78-dde supply Levothyroxine (levothyroxine 0.05 mg oral tablet)?1?tab(s)?By Mouth?Daily?for 90?Days Lisinopril (lisinopril 40 mg oral tablet)?1?tab(s)?40?Milligram?By Mouth?Daily Shawn?for 90?Days?11 AMDecreased dose Mepolizumab (Nucala Prefilled Autoinjector 100 mg/mL subcutaneous solution)?100?Milligram?Subcutaneous Infusion?Every 28 days?j45.40 Metformin (MetFORMIN (Eqv-Glucophage XR) 500 mg oral tablet, extended release)?1?tab(s)?ByMouth?2 times a day with meals?INCREASE DOSE Metoprolol (metoprolol 25 mg oral tablet, extended release)?25?Milligram?1?tablet?ByMouth?Daily Mirtazapine (mirtazapine 15 mg oral tablet)?0.5?tab(s)?By Mouth?Daily at bedtime?for90?Days Montelukast (montelukast 10 mg oral tablet)?1?tablet?By Mouth?Daily at bedtime?SUPPLY. Omeprazole (omeprazole 20 mg oral enteric coated capsule)?1?capsule?20?Milligram?By Mouth?Daily?for 90?Days?30 minutes before breakfast Pravastatin (pravastatin 80 mg oral tablet)?1?tab(s)?By Mouth?Daily?for 90?Days Spironolactone (spironolactone 25 mg oral tablet)?25?Milligram?1?tablet?By Mouth?Daily in AM?at ??11 AMGiven by fitter/welder, Dr. Indio Mason Triamcinolone Topical (triamcinolone 0.025% topical cream)?1?kristy?Topically?3 times a day?PRN itching Apply to lower extremities Lao ? Results Recent Labs BLOOD COUNT & DIFF WBC 10.1 k/mm3 ()?? 05/18/2024 23:13 RBC 4.07 m/mm3 (Low)?? 05/18/2024 23:13 Hgb 10.9 Gm/dL (Low)?? 05/18/2024 23:13 Hct 33.6 % (Low)?? 05/18/2024 23:13 MCV 82.6 femtoliters ()?? 05/18/2024 23:13 MCH 26.8 pg (Low)?? 05/18/2024 23:13 MCHC 32.4 g/dL (Low)?? 05/18/2024 23:13 Platelet Count 295 k/mm3 ()?? 05/18/2024 23:13 RDW-SD 42.5 femtoliters ()?? 05/18/2024 23:13 MPV 9.7 femtoliters ()?? 05/18/2024 23:13 Nucleated RBC (Automated) 0.0 #/100 WBC'S ()?? 05/18/2024 23:13 Abs. NRBC 0.0 k/mm3 ()?? 05/18/2024 23:13 Abs. Neut 5.5 k/mm3 ()?? 05/18/2024 23:13 Abs. Lymph 3.6 k/mm3 (High)?? 05/18/2024 23:13 Abs. [place] 0.8 k/mm3 ()?? 05/18/2024 23:13 Abs. Eo 0.1 k/mm3 ()?? 05/18/2024 23:13 Abs. Baso 0.1 k/mm3 ()?? 05/18/2024 23:13 Neut % 54.7 % ()?? 05/18/2024 23:13 Lymph % 35.6 % ()?? 05/18/2024 23:13 [place] % 7.9 % ()?? 05/18/2024 23:13 Eos % 0.9 % ()?? 05/18/2024 23:13 Baso % 0.6 % ()?? 05/18/2024 23:13 Imm Gran 0.3 % ()?? 05/18/2024 23:13 Abs. Imm Gran 0.0 k/mm3 ()?? 05/18/2024 23:13 ?? CARDIAC Nt-Probnp 78 pg/mL ()?? 05/18/2024 23:13 High Sensitivity Troponin (HSTnT) 20 ng/L (High)?? 05/19/2024 04:24 ?? CHEM GENERAL Sodium 141 mmol/L ()?? 05/18/2024 23:13 Potassium 3.1 mmol/L (Low)?? 05/18/2024 23:13 Chloride 103 mmol/L ()?? 05/18/2024 23:13 Bicarbonate Level 26 mmol/L ()?? 05/18/2024 23:13 Anion Gap 12 ()?? 05/18/2024 23:13 Glucose Level 179 mg/dL (High)?? 05/18/2024 23:13 BUN 13 mg/dL ()?? 05/18/2024 23:13 Creatinine-Blood 1.16 mg/dL (High)?? 05/18/2024 23:13 Estimated GFR Creatinine 48 ML/MIN/1.73 M2 ()?? 05/18/2024 23:13 Calcium 8.9 mg/dL ()?? 05/18/2024 23:13 Magnesium 1.7 mg/dL ()?? 05/18/2024 23:13 Protein, Total 7.2 Gm/dL ()?? 05/18/2024 23:13 Albumin 4.3 Gm/dL ()?? 05/18/2024 23:13 AG Ratio 1.5 ()?? 05/18/2024 23:13 Alkaline Phosphatase 67 units/L ()?? 05/18/2024 23:13 Lipase 30 units/L ()?? 05/18/2024 23:13 AST (SGOT) 12 units/L ()?? 05/18/2024 23:13 ALT (SGPT) 14 units/L ()?? 05/18/2024 23:13 Bilirubin, Total 0.2 mg/dL ()?? 05/18/2024 23:13 Lactate 2.9 mmol/L (High)?? 05/19/2024 04:24 ?? COAG INR 1.1 ()?? 05/18/2024 23:13 Protime (PT) 11.8 seconds (High)?? 05/18/2024 23:13 D-Dimer <0.19 mg/L FEU ()?? 05/19/2024 06:54 ?? ENDOCRINE/TUMOR MARKER TSH 3.79 uIU/mL ()?? 05/18/2024 23:13 ?? UA/URINALYSIS Appear/Color, Urine COLORLESS ()?? 05/18/2024 23:12 Specific [place], Urine 1.007 ()?? 05/18/2024 23:12 pH, Urine 7.0 ()?? 05/18/2024 23:12 Albumin, Urine NEGATIVE ()?? 05/18/2024 23:12 Glucose, Urine NEGATIVE ()?? 05/18/2024 23:12 Ketones, Urine NEGATIVE ()?? 05/18/2024 23:12 Bilirubin, Urine NEGATIVE ()?? 05/18/2024 23:12 Hemoglobin, Urine NEGATIVE ()?? 05/18/2024 23:12 Nitrite, Urine NEGATIVE ()?? 05/18/2024 23:12 Leukocyte, Urine NEGATIVE ()?? 05/18/2024 23:12 Urobilinogen NORMAL mg/dL ()?? 05/18/2024 23:12 WBC's, Urine 1 /HPF ()?? 05/18/2024 23:12 RBC's, Urine 1 /HPF ()?? 05/18/2024 23:12 Squamous Epith <1 /HPF ()?? 05/18/2024 23:12 Mucus SLIGHT /LPF ()?? 05/18/2024 23:12 ?? VIROLOGY COVID-19 by RT-PCR NEGATIVE ()?? 05/18/2024 23:03 ? EKG study * Event Display: ECG 12-Lead Authored Date: Please click on pdf link to open report * Event Display: ECG 12-Lead Authored Date: Ventricular Rate: 75 BPM Atrial Rate: 75 BPM P-R Interval: 130 ms QRS Duration: 96 ms Q-T Interval: 448 ms QTC Calculation(Bazett): 500 ms P [place]: 68 degrees R [place]: 42 degrees T [place]: 98 degrees Critical Test Result: Long QTc Normal sinus rhythm Nonspecific ST and T wave abnormality Prolonged QT Abnormal ECG When compared with ECG of 18-MAY-2024 21:53, No significant change was found Confirmed by LILLY HERBERT MD ([id number]) on 05/20/2024 9:33:14 AM [place]: LILLY HERBERT MD * Event Display: ECG 12-Lead Authored Date: Please click on pdf link to open report * Event Display: ECG 12-Lead Authored Date: Ventricular Rate: 78 BPM Atrial Rate: 78 BPM P-R Interval: 136 ms QRS Duration: 94 ms Q-T Interval: 442 ms QTC Calculation(Bazett): 503 ms P [place]: 54 degrees R [place]: 46 degrees T [place]: 125 degrees Normal sinus rhythm ST and T wave abnormality, consider inferior ischemia Prolonged QT Abnormal ECG When compared with ECG of 23-FEB-2024 15:09, QT has lengthened Confirmed by JOSIAS FLEDMAN ([id number]) on 05/19/2024 9:49:28 AM [place]: JOSIAS FELDMAN Heart * Event Display: Echocardiogram - Complete Authored Date: Transthoracic Echocardiography Report (TTE) Patient Demographics Patient Name KRUNAL ALVARENGA Date of Study 05/19/2024 Corporate Gender Female Facility Race Ethnicity or Date of 1945 Height: 64.96 inches Age 78 year(s) Weight: 191.81 pounds Accession Number [id number] BSA: 1.94 m2 Room Number [id number] BMI: 31.96 kg/m2 Referring Physician Cori Martinez MD Interpreting Tommy Manuel MD Physician [employer] Stock Clerk Celio [facility] Jennifer Indications Chest pain. Clinical History COPD Diabetes Mellitus. HTN LILA Obesity. Study Data Type of Study TTE procedure:Echo Complete-Doppler, Colorflow, M-Mode. Study Date05/19/2024 Start Time: 03:31 PM Study Location: [facility] Adult Echo Study Status: Echo lab Patient Status: Routine Technical Quality: Fair due to body habitus. Blood Pressure:112/56 mmHg EKG: Normal sinus rhythm HR: 70 bpm 2D Measurements LV Diastolic Dimension: 4.2 cm LV Systolic Dimension: 2.9 cm LV Septum Diastolic: 0.8 cm LV PW Diastolic: 0.8 cm AO Root Dimension: 2.6 cm LA Dimension: 3.7 cm LA ESV (BP):40.8 ml LVOT Stroke Volume: 48.18 ml LA ESV Index: 21 ml/m2 Stroke Volume Index24.84 ml/m2 LVOT: 1.9 cm Cardiac Index:1.74 l/min/m2 Doppler Measurements AV Peak Velocity: 148 cm/s MV Peak E-Wave: 132 cm/s AV Peak Gradient: 8.76 mmHg MV Peak A-Wave: 119 cm/s MV E/A Ratio: 1.11 LVOT Peak Velocity: 82.9 cm/s MV P1/2t: 63 msec LVOT VTI17 cm MV Deceleration Time: 213 msec MV Area (PHT): 3.49 cm2 E' Septal Velocity: 5.44 cm/s E' Lateral Velocity: 8.16 cm/s E/Med E':24.02399 E/Lat E':16.43116 Cardiac Anatomy Left Ventricle/Interventricular Septum The left ventricular size is normal. Left ventricular wall thickness is normal. The LV systolic function is normal . The left ventricular ejection fraction is 55-60 %. No obvious wall motion abnormalities seen on limited views. Left Atrium/Interatrial Septum The left atrium is normal in size. Aortic Valve The aortic valve leaflet opening is normal . There is no aortic stenosis. There is no significant aortic regurgitation. Mitral Valve The mitral valve is grossly normal. There is mild mitral regurgitation. Aorta The aortic root is normal in size. Right Ventricle The right ventricular size and function appears grossly normal. Right Atrium The right atrium is normal in size. Pulmonic Valve The pulmonic valve velocity is normal. Tricuspid Valve There is trace tricuspid valve regurgitation. Pumonary Artery An accurate pulmonary artery pressure could not be obtained. Venous Structures The inferior vena cava appears grossly normal. Pericardium/Extracardiac There is no significant pericardial effusion. Summary The left ventricular size is normal. Left ventricular wall thickness is normal. The LV systolic function is normal . The left ventricular ejection fraction is 55-60 %. No obvious wall motion abnormalities seen on limited views. The right ventricular size and function appears grossly normal. Comparison Comparison is made to the study of July 15, 2022. Limited studies making direct comparison difficult. No significant change noted. Signature * Event Display: Echocardiogram - Complete Authored Date: [facility] Progress note * Miroslava Saunders NP: PERFORM, MODIFY, MODIFY Event Display: Progress Note [facility] Authored Date: Patient: ??KRUNAL ALVARENGA ? Age:??78 Years?Sex:??Female?:??1945?? Cross Cover Note: Serum K of 2.9. Ordered hydration with KCL and p.o. KCl supplement. ECG showed prolonged QTC. Ordered add on magnesium level Consult note * Ang Hilton DO: PERFORM Event Display: Consultation Note Authored Date: Patient: ??LYLE, KRUNAL ? Age:??78 Years?Sex:??Female?:??1945?? History of Present Illness/Interval History [facility] - Cardiology Consultation Note ?? Consult Requesting Physician: Consulting Meteorologist Liaison: Consult Reason:??chest pain ?? 78-year-old female Lao-speaking, with a past medical history of DVT (on Eliquis), DM2, HLD who presented to the ED for evaluation of chest pain and palpitations. ?? Daughter was on phone to translate, states that patient developed sudden onset of palpitations and chest pressure at 8:30 PM yesterday, associated with mild shortness of breath and headache.?? Patient has a history of chronic hypertension, and monitors her blood pressures at home with typical blood pressures around systolic BPs 140.?? In the ED, patient was found to be hypertensive with systolic BP in the 190s, remaining vital signs stables.?? Labs significant for elevated troponin 10->22->20.?? With lactate uptrending to 2.5->3.0.?? EKG demonstrating normal sinus rhythm, mild ST depression in leads II and aVF with prolonged QTc.?? Currently at bedside, patient is asymptomatic and has no complaints.Patient is not a smoker.?? Has a family history of cardiac disease with MN in her father.?? Last echo??July 2022 with normal??LV systolic function. ?? Cardiac medications: Eliquis 5 mg twice daily Diltiazem 180 mg daily Hydralazine 50 mg in the a.m. and 25 mg?? at 1 PM and 50 mg in the afternoon. Lisinopril 40 mg daily Metoprolol 25 mg daily Spironolactone 25 mg daily Pravastatin 80 mg daily Review of Systems A full review of systems was completed and is otherwise negative except as mentioned in history of present illness. Physical Exam Vitals & Measurements T:??98.0?F?? HR:??72??(Peripheral)?? RR:??19?? BP:??164/68?? SpO2:??98%?? Weight lb/oz: 192 lb 14 oz Constitutional: Alert, in no distress. Mental Status: Oriented to person, place and time. Respiratory: no resp distress Cardiovascular: S1 S2 regular. No murmurs, rubs or gallops. Gastrointestinal: Abdomen soft, non-tender, non-distended. Neurologic: No focal neurological deficits Musculoskeletal:?? No gross deformities. Assessment/Plan 78-year-old female Lao-speaking, with a past medical history of DVT (on Eliquis), DM2, HLD who presented to the ED for evaluation of chest pain and palpitations, found to have hypertensive emergency, cardiology consulted for chest pain? Hypertensive emergency Hyperlipidemia Hypertension Patient presenting with??sudden onset of palpitations and chest pain,??has a history of??hypertension??on several medications for blood pressure control??including hydralazine, lisinopril,??along with diltiazem and??metoprolol. Likely patient's symptoms are in the setting of??hypertension emergency,??which can also lead to the elevation in her troponin,??at this time would recommend??controlling blood pressure??and obtain an echo, additionally educated patient on diet??enforcing??a low-salt diet??and to continue checking her blood pressures daily at home ?? Recommendations: -Control blood pressure -Echo -Outpatient follow-up??with cardiology -Educated on??low-salt diet and??monitoring blood pressure daily??at home ?? Patient??discussed with field operator and attending physician ?? Ang Hilton, DO Internal Medicine, PGY-2 Pager [phone] Allergies dexamethasone??(Swelling of throat 10-DEC-2015 19:14:30<$>) predniSONE??(Itchy skin eruption) tramadol??(Itch) Home Medications Acetaminophen: 1,300 mg = 2 tablet, By Mouth, Every 8 hours, PRN (Pain), (do not crush or chew)(notto exceed 6 tablets/day) Albuterol: 2 puffs, Inhalation, Every 6 hours, PRN (Wheezing/Shortness of Breath) apixaban: 1 tablet, By Mouth, 2 times a day Budesonide: 2 mL, Inhalation, 2 times a day Calcium And Vitamin D Combination: 2 tablet, By Mouth, 2 times a day Ciclopirox Topical: 1 application, Topically, Daily, as directedto affected area toenails Conjugated Estrogens Topical: See Instructions, APPLY 1/2 GRAM IN THE VAGINA EVERY WEDNESDAY AND WEDNESDAY Desloratadine: 5 mg = 1 tablet, By Mouth, Daily Diclofenac Topical: 2 Gm, Topically, 4 times a day Diltiazem: 180 mg = 1 tablet, By Mouth, Daily in AM, Take at 11 AM Durable Medical Equipment: See Instructions, use daily; closed toes; 15-20 mmHg. Dx peripheral vascular insufficiency I 87.2 Durable Medical Equipment (Shoes insert, molded to foot): See Instructions, wear every day ??in both foot Dx DM type 2 ??with peripheral neuropathy ICD10 E11.40; DMtype 2 pressure callus 11.628; venous peripheral insuficiency I87.23 pairs Durable Medical Equipment (Ero-rli-pkzbu medical-grade oxford diabetic shoes, depth or hightop): See Instructions, wear every day ??in both foot Dx DM type 2 ??with peripheral neuropathy ICD10 E11.40; DMtype 2 pressure callus 11.628; venous peripheral insuficiency I87.21 pair Durable Medical Equipment: See Instructions, use daily ??for blood sugar testing once ??a day Dx ??DM type 2 E11.9 Durable Medical Equipment: See Instructions, use daily for blood sugar testing once ??a day Dx ??DMtype 2 E11.9One Touch Delica Durable Medical Equipment (Juxtafit Knee-high Compression Garments(bilateral, left, right) with 2 pairs of liners) (Juxtafit Knee-high Compression Garments(bilateral, left, right) with 2 pairs of liners): See Instructions, as directed Durable Medical Equipment: See Instructions, use daily for blood sugar testing once ??a day Dx ??DMtype 2 E11.9One Touch Ultra EPINEPHrine: 0.3 mg, Intramuscular, Once, PRN (Anaphylactic Reaction) Escitalopram: 10 mg = 1 tablet, By Mouth, Daily, discontinue citalopram Fluticasone Nasal: 2 sprays, Nares, Both, Daily, Use every day during allergy season. While using spray keep head down. Fluticasone-Salmeterol: 1 inhalation, Inhalation, 2 times a day, J45..0rinse mouth and throat afteruse Formoterol: See Instructions, USE 2 ML VIA NEBULIZER TWICE DAILY USING A CONTINUOUS FLOW VIA NEBULIZER hydrALAZINE: See Instructions, By mouth2 tab in 7 AM, ??1 tab at1PM and ??2 PM at 0TX58-rpn supply Levothyroxine: 1 tablet, By Mouth, Daily Lisinopril: 40 mg = 1 tablet, By Mouth, Daily in AM, 11 AMDecreased dose Mepolizumab: 100 mg, Subcutaneous Infusion, Every 28 days, j45.40 Metformin: 1 tablet, By Mouth, 2 times a day with meals, INCREASE DOSE Metoprolol: 25 mg = 1 tablet, By Mouth, Daily Mirtazapine: 0.5 tablet, By Mouth, Daily at bedtime Montelukast: 1 tablet, By Mouth, Daily at bedtime, SUPPLY. Omeprazole: 20 mg = 1 capsule, By Mouth, Daily, 30 minutes before breakfast Pravastatin: 1 tablet, By Mouth, Daily Spironolactone: 25 mg = 1 tablet, By Mouth, Daily in AM, at ??11 AMGiven by fitter/welder, Dr. Indio Mason Triamcinolone Topical: 1 application, Topically, 3 times a day, PRN itching Apply to lower extremities [facility] Medications Medications (9) Active SCHEDULED: (6) Budesonide 0.5 mg/ 2 mL Inhalation Susp (budesonide 0.5 mg/2 mL inhalation suspension) ??0.5 mg 2 mL, Inhalation, 2 times a day Diltiazem 180 mg/24 hour CD Capsule (diltiazem 180 mg/24 hours oral capsule, extended release) ??180 mg, By Mouth, Daily hydrALAZINE 25 mg Tablet (hydrALAZINE 25 mg oral tablet) ??50 mg, By Mouth, Every 24 hours Metoprolol 25 mg XL Tablet (Metoprolol ??XL Tablet) ??25 mg, By Mouth, Daily NaCl 0.9% Flush 3ml (NaCL 0.9% Flush) ??3 mL, IV Push, Every 8 hours Spironolactone 25 mg Tablet (spironolactone 25 mg oral tablet) ??25 mg, By Mouth, Daily in AM CONTINUOUS: (1) NaCL 0.9% (1000 mL) Cont IV 1,000 mL (0.9% NaCL 1,000 mL) ??1,000 mL, IV Infusion, 75 mL/hr PRN: (2) Acetaminophen 325 mg Tablet (Acetaminophen Tablet) ??650 mg, By Mouth, Every 4 hours NaCl 0.9% Flush 3ml (NaCL 0.9% Flush) ??3 mL, IV Push, Every 8 hours Lab Results Cardiology Labs WBC:??11.2 k/mm3??High (05/19/24) RBC: 4.3 m/mm3 (05/19/24) Hgb:??11.6 Gm/dL??Low (05/19/24) Hct: 36.9 % (05/19/24) MCV: 85.8 femtoliters (05/19/24) MCH: 27 pg (05/19/24) MCHC:??31.4 g/dL??Low (05/19/24) Platelet Count: 297 k/mm3 (05/19/24) RDW-SD: 44.7 femtoliters (05/19/24) Nucleated RBC (Automated): 0 #/100 WBC'S (05/19/24) Abs. Neut: 5.5 k/mm3 (05/18/24) Abs. Lymph:??3.6 k/mm3??High (05/18/24) Abs. [place]: 0.8 k/mm3 (05/18/24) Abs. Eo: 0.1 k/mm3 (05/18/24) Abs. Baso: 0.1 k/mm3 (05/18/24) Neut %: 54.7 % (05/18/24) [place] %: 7.9 % (05/18/24) Eos %: 0.9 % (05/18/24) Baso %: 0.6 % (05/18/24) Imm Gran: 0.3 % (05/18/24) Abs. Imm Gran: 0 k/mm3 (05/18/24) INR: 1.1 (05/18/24) Protime (PT):??11.8 seconds??High (05/18/24) Sodium: 141 mmol/L (05/18/24) Potassium:??3.1 mmol/L??Low (05/18/24) Chloride: 103 mmol/L (05/18/24) Bicarbonate Level: 26 mmol/L (05/18/24) Glucose Level:??179 mg/dL??High (05/18/24) BUN: 13 mg/dL (05/18/24) Creatinine-Blood:??1.16 mg/dL??High (05/18/24) Calcium: 8.9 mg/dL (05/18/24) Protein, Total: 7.2 Gm/dL (05/18/24) Albumin: 4.3 Gm/dL (05/18/24) Alkaline Phosphatase: 67 units/L (05/18/24) AST (SGOT): 12 units/L (05/18/24) ALT (SGPT): 14 units/L (05/18/24) Bilirubin, Total: 0.2 mg/dL (05/18/24) Nt-Probnp: 78 pg/mL (05/18/24) TSH: 3.79 uIU/mL (05/18/24) Diagnostic Impression ECG ECG 12-Lead ?? 21:53:55 Please click on pdf link to open report ?? Signed By: Josias Feldman MD ?? ECG 12-Lead ?? 21:53:55 Ventricular Rate: 78 BPM Atrial Rate: 78 BPM P-R Interval: 136 ms QRS Duration: 94 ms Q-T Interval: 442 ms QTC Calculation(Bazett): 503 ms P [place]: 54 degrees R [place]: 46 degrees T [place]: 125 degrees Normal sinus rhythm ST and T wave abnormality, consider inferior ischemia Prolonged QT Abnormal ECG When compared with ECG of 12-ABEBA-2024 15:09, QT has lengthened Confirmed by JOSIAS FELDMAN ([id number]) on 05/19/2024 9:49:28 AM ?? [place]: JOSIAS FELDMAN ?? Signed By: Josias Feldman MD Echo Echocardiogram - Complete ?? 15:11:58 Summary The left ventricle is normal in size. Ejection fraction is normal. No definite wall motion abnormalities seen. Diastolic function could not be determined. ?? The left atrium is normal in size. ?? The right ventricle is normal in size. Function appears preserved. ?? The right atrium is grossly normal in size. ?? Comparison No prior for comparison. ?? Signature ?? 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 Cain Allergic rhinitis Anxiety disorder Asthma Atrophic vaginitis Chronic anticoagulation secondary to unprovoked DVT Depression Diabetes mellitus type 2 Diabetic neuropathy Diabetic peripheral angiopathy History of DVT in adulthood Hypertension Hypothyroidism Insomnia Mixed hyperlipidemia OA (osteoarthritis) of knee Obese class I Obstructive sleep apnea Osteopenia Varicose vein Procedure/Surgical History Colonoscopy: 03/15/18 Laparoscopic assisted vaginal hysterectomy with repair of cystocele: 2012 Laparoscopy, surgical; cholecystectomy R tallus intrathecal injection Social History Alcohol Use: Current. Frequency: 1-2 times per year. Electronic Cigarette/Vaping Electronic Cigarette Use: Never. Employment/School Status: Unemployed. Home/Environment Living situation: Home/Independent. Lives with: Alone. 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 Nutrition/Health Diet: Diabetic. Substance Abuse Use: Never. Tobacco Use: Never (less than 100 in lifetime). Family History No family history recorded. * Mikki Montez MD: PERFORM Event Display: Consultation Note Authored Date: [id number] Attending Attestation: I have seen and evaluated this patient.?? I have discussed the case and its management with the resident and agree with the findings and plan as documented in the resident???s note. Note * Rosalva Garcia RN: PERFORM Event Display: Discharge/Transfer Note Hospital Authored Date: [id number] Nursing Discharge Note Entered On: 05/20/2024 13:50 EDT Performed On: 05/20/2024 13:49 EDT by Rosalva Garcia RN Nursing Discharge Note 2 Discharge Time : 05/20/2024 13:49 EDT Discharge Level of Care at Discharge : Home/Assisted/Foster Care Patient Left Unit Via : Wheelchair Patient Accompanied Off Unit with : Responsible adult DC Instructions Provided & Signed by Pt : Yes Patient Understands D/C Instructions : Yes Patient Instructions Discharge Signed : Yes Did Pt have Specialty Bed or Wound Vac : No Rosalva Garcia RN - 05/20/2024 13:49 EDT * Toribio MCCLAIN, Beth: PERFORM, MODIFY Event Display: Discharge/Transfer Note Hospital Authored Date: [id number] Patient: ??LYLE, KRUNAL ? Age:??78 Years?Sex:??Female?:??1945?? 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) Elevated troponin (R79.89) Hypertensive emergency without congestive heart failure (I16.1) Acute kidney injury (N17.9) Hypokalemia with normal pH (E87.6) Lactic acidosis (E87.20) Microcytic anemia (D50.9) Hypertension, essential (I10) Diabetes mellitus (E11.9) Chest pain (R07.9) Acute kidney injury superimposed on chronic kidney disease (N17.9) _ Discharge Medications Acetaminophen (acetaminophen 650 mg oral tablet, extended release)?2?tab(s)?1,300?Milligram?By Mouth?Every 8 hours?as needed?Pain?(do not crush or chew)(not to exceed 6 tablets/day) Albuterol (Albuterol (Eqv-ProAir HFA) 90 mcg/inh inhalation aerosol)?2?puff(s)?Inhalation?Every 6 hours?as needed?Wheezing/Shortness of Breath apixaban (Eliquis 5 mg oral tablet)?1?tab(s)?By Mouth?2 times a day Budesonide (budesonide 0.5 mg/2 mL inhalation suspension)?Inhalation?2 times a day Calcium And Vitamin D Combination (calcium (as citrate)-vitamin D 315 mg-250 intl units oral tablet)?2?tab(s)?By Mouth?2 times a day?for 90?Days Ciclopirox Topical (ciclopirox 8% topical solution)?1?kristy?Topically?Daily?as directedto affected area toenails Conjugated Estrogens Topical (Premarin Vaginal 0.625 mg/gm cream with applicator)?See Instructions?APPLY 1/2 GRAM IN THE VAGINA EVERY WEDNESDAY AND WEDNESDAY Desloratadine (Clarinex 5 mg oral tablet)?1?tab(s)?5?Milligram?By Mouth?Daily?for 90?Days Diclofenac Topical (diclofenac 1% topical gel)?2?gram?Topically?4 times a day?for 14?Days Diltiazem (Matzim LA 180 mg/24 hours oral tablet, extended release)?1?tab(s)?180?Milligram?By Mouth?Daily in AM?for 90?Days?Take at 11 AM Durable Medical Equipment (Compression- Lower Extremity (Knee High))?See Instructions?use daily; closed toes; 15-20 mmHg. 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 Durable Medical Equipment (Ouz-fpx-tzxwa medical-grade oxford diabetic shoes, depth or hightop)?See Instructions?wear every day ??in both foot Dx DM type 2 ??with peripheral neuropathy ICD10 E11.40; DMtype 2 pressure callus 11.628; venous peripheral insuficiency I87.21 pair Durable Medical Equipment (Alcohol Wipes)?See Instructions?use daily ??for blood sugar testing once ??a day Dx ??DM type 2 E11.9 Durable Medical Equipment (Lancets)?See Instructions?use daily for blood sugar testing once ??a day Dx ??DM type 2 E11.9One Touch Delica Durable Medical Equipment (Juxtafit Knee-high Compression Garments(bilateral, left, right) with 2 pairs of liners)?See Instructions?as directed Durable Medical Equipment (Test Strips)?See Instructions?use daily for blood sugar testing once ??a day Dx ??DM type 2 E11.9One Touch Ultra EPINEPHrine (EPINEPHrine 0.3 mg injectable solution)?0.3?Milligram?Intramuscular?Once?as needed?Anaphylactic Reaction Escitalopram (escitalopram 10 mg oral tablet)?1?tab(s)?10?Milligram?By Mouth?Daily?discontinue citalopram Fluticasone Nasal (fluticasone 50 mcg/inh nasal spray)?2?spray(s)?Nares, Both?Daily?for 90?Days?Use every day during allergy season. While using spray keep head down. Fluticasone-Salmeterol (Wixela Inhub 100 mcg-50 mcg inhalation powder)?1?inhalation?Inhalation?2 times a day?J45..0rinse mouth and throat after use Formoterol (formoterol 10 mcg/mL inhalation solution)?See Instructions?USE 2 ML VIA NEBULIZERTWICE DAILY USING A CONTINUOUS FLOW VIA NEBULIZER hydrALAZINE (hydrALAZINE 25 mg oral tablet)?See Instructions?By mouth2 tab in 7 AM, ??1 tab at1PM and ??2 PM at [id number] supply Levothyroxine (levothyroxine 0.05 mg oral tablet)?1?tab(s)?By Mouth?Daily?for 90?Days Lisinopril (lisinopril 40 mg oral tablet)?1?tab(s)?40?Milligram?By Mouth?Daily Shawn?for 90?Days?11 AMDecreased dose Mepolizumab (Nucala Prefilled Autoinjector 100 mg/mL subcutaneous solution)?100?Milligram?Subcutaneous Infusion?Every 28 days?j45.40 Metformin (MetFORMIN (Eqv-Glucophage XR) 500 mg oral tablet, extended release)?1?tab(s)?ByMouth?2 times a day with meals?INCREASE DOSE Metoprolol (metoprolol 25 mg oral tablet, extended release)?25?Milligram?1?tablet?ByMouth?Daily Mirtazapine (mirtazapine 15 mg oral tablet)?0.5?tab(s)?By Mouth?Daily at bedtime?for90?Days Montelukast (montelukast 10 mg oral tablet)?1?tablet?By Mouth?Daily at bedtime?SUPPLY. Omeprazole (omeprazole 20 mg oral enteric coated capsule)?1?capsule?20?Milligram?By Mouth?Daily?for 90?Days?30 minutes before breakfast Pravastatin (pravastatin 80 mg oral tablet)?1?tab(s)?By Mouth?Daily?for 90?Days Spironolactone (spironolactone 25 mg oral tablet)?25?Milligram?1?tablet?By Mouth?Daily in AM?at ??11 AMGiven by fitter/welder, Dr. Indio Mason Triamcinolone Topical (triamcinolone 0.025% topical cream)?1?kristy?Topically?3 times a day?PRN itching Apply to lower extremities Lao ? Durable Medical Equipment Ambulatory devices needed: Walker (05/19/24) ? Medications Started none Allergies Allergies ?(Active and Proposed Allergies Only) dexamethasone? (Severity: Persistent Mild, Onset: Unknown) ?Reactions: Swelling of throat ? 10-DEC-2015 19:14:30<$> predniSONE? (Severity: Persistent Severe, Onset: 11/11/2011) ?Reactions: Itchy skin eruption ?Comments: Not associated with swelling nor shortness of breath tramadol? (Severity: Persistent Mild, Onset: 01/27/2008) ?Reactions: Itch ? Future Appointments Wednesday 7:45 AM EDT ?? Where: [address] [address]- Status: Pending Objective Assessment and Plan ?? 78-year-old Lao-speaking female with past medical history of hypertension, hyperlipidemia, DVT on Eliquis, diabetes mellitus who presented for evaluation of chest pain, palpitation, shortness of breath and headache. ?Uncontrolled hypertension Essential hypertension Elevated troponin Chest pain: Systolic blood pressure elevated to more than 180 presentation,Creatinine mildly elevated than baseline, initial troponin 10 then went up to 22 and then 20.?? EKG no acute ischemic changes Blood pressure improved after resuming home medication Cardiology was consulted Cardiology recommended blood pressure control echocardiogram Echocardiogram done??showed preserved ejection fraction, no wall motion abnormalities Patient is pain-free now??no shortness of breath or palpitation Continue home antihypertensive regimen which includes??diltiazem, hydralazine, lisinopril, spironolactone Patient already has scheduled follow-up with primary care physician and calling in nephrology office for follow-up as well Cardiology will arrange for outpatient follow-up Patient needs to be on low-salt diet ? Lactic acidosis: Unclear etiology.?? Likely type B lactic acidosis LFT normal, no hypotension but lactic acid level remains slightly elevated ? Diabetes mellitus: Resume metformin ?? Chronic stable medications: -Antiallergy cetirizine 5 mg daily -Escitalopram 10 mg daily -Levothyroxine 50 mcg daily ?? Hypokalemia?Potassium?? level was 2.9 this morning, replaced Repeat potassium level 3.7. ? . Physical Exam GENERAL: In no apparent distress HEENT: Head normocephalic, PERRL,Moist mucous membrane. 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 PSYCHIATRIC: Calm and co-operative SKIN: Warm and dry. ? Consultants Cardiology Pending Results Add On Lab Order ordered on 05/20/2024 Patient Education Titles WebMD Ignite Patient Education - High Blood Pressure, Established, Out of Control?? Follow-Up Appointments Added Follow Up ?Time Frame ?Comments Marcyhuy MCCLAIN, Noraymar?1 to 2 weeks Post Discharge Care Discharge ?05/20/24 12:29:00 EDT Discharge Prescriptions ?None, 05/20/24 12:29:00 EDT Home Health Face to Face ^HomeHealthFTF Results Discharge Labs BLOOD COUNT & DIFF WBC 9.6 k/mm3 ()?? 05/20/2024 00:58 RBC 4.02 m/mm3 (Low)?? 05/20/2024 00:58 Hgb 10.9 Gm/dL (Low)?? 05/20/2024 00:58 Hct 33.7 % (Low)?? 05/20/2024 00:58 MCV 83.8 femtoliters ()?? 05/20/2024 00:58 MCH 27.1 pg ()?? 05/20/2024 00:58 MCHC 32.3 g/dL (Low)?? 05/20/2024 00:58 Platelet Count 293 k/mm3 ()?? 05/20/2024 00:58 RDW-SD 44.2 femtoliters ()?? 05/20/2024 00:58 MPV 9.6 femtoliters ()?? 05/20/2024 00:58 Nucleated RBC (Automated) 0.0 #/100 WBC'S ()?? 05/20/2024 00:58 Abs. NRBC 0.0 k/mm3 ()?? 05/20/2024 00:58 Abs. Neut 5.5 k/mm3 ()?? 05/18/2024 23:13 Abs. Lymph 3.6 k/mm3 (High)?? 05/18/2024 23:13 Abs. [place] 0.8 k/mm3 ()?? 05/18/2024 23:13 Abs. Eo 0.1 k/mm3 ()?? 05/18/2024 23:13 Abs. Baso 0.1 k/mm3 ()?? 05/18/2024 23:13 Neut % 54.7 % ()?? 05/18/2024 23:13 Lymph % 35.6 % ()?? 05/18/2024 23:13 [place] % 7.9 % ()?? 05/18/2024 23:13 Eos % 0.9 % ()?? 05/18/2024 23:13 Baso % 0.6 % ()?? 05/18/2024 23:13 Imm Gran 0.3 % ()?? 05/18/2024 23:13 Abs. Imm Gran 0.0 k/mm3 ()?? 05/18/2024 23:13 ?? CARDIAC Nt-Probnp 78 pg/mL ()?? 05/18/2024 23:13 High Sensitivity Troponin (HSTnT) 12 ng/L ()?? 05/19/2024 12:52 ?? CHEM GENERAL Sodium 141 mmol/L ()?? 05/20/2024 00:58 Potassium 3.7 mmol/L ()?? 05/20/2024 10:40 Chloride 102 mmol/L ()?? 05/20/2024 00:58 Bicarbonate Level 29 mmol/L ()?? 05/20/2024 00:58 Anion Gap 10 ()?? 05/20/2024 00:58 Glucose Level 119 mg/dL (High)?? 05/20/2024 00:58 BUN 6 mg/dL (Low)?? 05/20/2024 00:58 Creatinine-Blood 0.79 mg/dL ()?? 05/20/2024 00:58 Estimated GFR Creatinine 76 ML/MIN/1.73 M2 ()?? 05/20/2024 00:58 Calcium 8.7 mg/dL ()?? 05/20/2024 00:58 Magnesium 1.7 mg/dL ()?? 05/20/2024 00:58 Protein, Total 6.8 Gm/dL ()?? 05/20/2024 00:58 Albumin 3.9 Gm/dL ()?? 05/20/2024 00:58 AG Ratio 1.5 ()?? 05/18/2024 23:13 Alkaline Phosphatase 61 units/L ()?? 05/20/2024 00:58 Lipase 30 units/L ()?? 05/18/2024 23:13 AST (SGOT) 15 units/L ()?? 05/20/2024 00:58 ALT (SGPT) 12 units/L ()?? 05/20/2024 00:58 Bilirubin, Total 0.3 mg/dL ()?? 05/20/2024 00:58 Bilirubin, Direct <0.2 mg/dL ()?? 05/20/2024 00:58 Bilirubin, Indirect Direct bilirubin is less than the measureable limit. Therefore, indirect mg/dL ()?? 05/20/2024 00:58 Lactate 0.9 mmol/L ()?? 05/20/2024 00:58 ?? COAG INR 1.1 ()?? 05/18/2024 23:13 Protime (PT) 11.8 seconds (High)?? 05/18/2024 23:13 D-Dimer <0.19 mg/L FEU ()?? 05/19/2024 06:54 ? ENDOCRINE/TUMOR MARKER TSH 3.79 uIU/mL ()?? 05/18/2024 23:13 ? HEME OTHER Hold Lavender Top SPECIMEN DISCARDED AFTER 24 HOURS. ()?? 05/20/2024 10:40 ? UA/URINALYSIS Appear/Color, Urine COLORLESS ()?? 05/18/2024 23:12 Specific [place], Urine 1.007 ()?? 05/18/2024 23:12 pH, Urine 7.0 ()?? 05/18/2024 23:12 Albumin, Urine NEGATIVE ()?? 05/18/2024 23:12 Glucose, Urine NEGATIVE ()?? 05/18/2024 23:12 Ketones, Urine NEGATIVE ()?? 05/18/2024 23:12 Bilirubin, Urine NEGATIVE ()?? 05/18/2024 23:12 Hemoglobin, Urine NEGATIVE ()?? 05/18/2024 23:12 Nitrite, Urine NEGATIVE ()?? 05/18/2024 23:12 Leukocyte, Urine NEGATIVE ()?? 05/18/2024 23:12 Urobilinogen NORMAL mg/dL ()?? 05/18/2024 23:12 WBC's, Urine 1 /HPF ()?? 05/18/2024 23:12 RBC's, Urine 1 /HPF ()?? 05/18/2024 23:12 Squamous Epith <1 /HPF ()?? 05/18/2024 23:12 Mucus SLIGHT /LPF ()?? 05/18/2024 23:12 Hold Urine Culture Testing available 48 hours from time of collection. ()?? 05/18/2024 23:12 ?? VIROLOGY COVID-19 by RT-PCR NEGATIVE ()?? 05/18/2024 23:03 ? 35_ minutes spent on discharge * Rosalva Garcia RN: PERFORM Event Display: Patient Education/Instruction Authored Date: Inpatient Adult Discharge Instructions. [address] [address] Name: KRUNAL ALVARENGA : 1945?? Visit: 05/18/2024 21:32?? Current Date: 05/20/2024 13:18 ?? Account: [id number]?? Inpatient Adult Discharge Instructions We would like [...] and their families. Surveys are administered by [employer] ?? If further treatment with your primary care physician or another doctor is recommended, it is important for you to keep the appointment. Call your primary care physician or return to the Emergency Department immediately if your condition worsens, fails to improve, or new symptoms develop. If you need to find a doctor, you can call [facility] Link for a referral at [phone] or toll free at [phone]) or log in to [email or web address] ?? [facility], in keeping with [facility] guidance, no longer requires face masks for [...] a health care kristy of your choosing. [employer] is a website that allows you to securely view your medical information including your hospital discharge summary, office visit summaries, medications and follow-up visits. You can also request appointments, renew medications, and request access to your medical information using a health care kristy of your choosing, or just ask a question. You can enroll at [email or web address] or register during your next office visit. You have been discharged from [facility], Patient Care Unit: D3B??. If you have any questions regarding these instructions, including results of studies pending, afteryou leave, please call us and we will be happy to assist you 05/04. [facility] Your Care Team Attending Physician Beth Rooney MD?? Consulting Providers Beth Rooney MD?? Discharging Providers Beth Rooney MD Reason for Your Visit Pt coming from home w/ chest tightness, palpitations, and associated anxiety.SBP @home >200. hx Afib, DVT?? Your Diagnosis Acute kidney injury Acute kidney injury superimposed on chronic kidney disease Chest pain Diabetes mellitus General medical Hypertension, essential Hypertensive emergency without congestive heart failure Hypokalemia with normal pH Lactic acidosis Microcytic anemia Tests Performed Below is a partial list of the tests performed during your hospitalization. You may have had other tests and procedures not included in this list. Please discuss all test results with your provider. Basic Metabolic Panel CBC CBC w/ Differential Comprehensive Metabolic Panel COVID-19 (Novel Coronavirus), Rapid PCR D Dimer High??Sensitivity??Troponin T HOLD LAVENDER TUBE INR Lactate Level Lactic Acid Level LFT's Lipase MAGNESIUM Potassium Level ProBNP Troponin T, High Sensitivity TSH with T4 Reflex (Adults Only) Urinalysis w/hold for Urine Culture CT Abd/Pelvis W/ IV Contrast Only XR Chest 2 Views Frontal and Lat Add On Lab Order?? B Type Natriuretic Peptide (ProBNP)?? Basic Metabolic Panel?? CBC?? CBC w/ Differential?? COVID-19 (Novel Coronavirus), Rapid PCR?? CT Abd/Pelvis W/ IV Contrast Only?? Comprehensive Metabolic Panel?? D Dimer?? Hepatic Function Panel (LFT's)?? High??Sensitivity??Troponin T (Troponin T, High Sensitivity)?? Hold Lavender Top Tube (HOLD LAVENDER TUBE)?? INR?? Lactic Acid Level?? Lipase?? Magnesium Level (MAGNESIUM)?? Potassium Level?? TSH with T4 Reflex (Adults Only)?? Urinalysis w/hold for Urine Culture?? Chest 2 Views Frontal and Lat (XR Chest 2 Views Frontal and Lat)?? Primary Care Provider Jessica Perrin MD? Advance Directive Health Care Proxy on File Yes - Health Care Proxy Yes - MOLST Discharge Vitals Temperature: 98 DegF Pulse Rate: 65 bpm Respiratory Rate: 17 br/min Systolic Blood Pressure:??164 mm Hg??High Diastolic Blood Pressure: 76 mm Hg Oxygen Saturation: 97 % Studies Pending All studies ordered during this hospital stay have been completed unless listed below. Please discuss all pending results with your provider listed above in these instructions. ?? Add On Lab Order?? What to do next Instructions From Your Doctor ?? Orders? 05/20/24 12:29:00 EDT?? Prescriptions??, ??05/20/24 12:29:00 EDT?? Scheduled Follow-Up Appointments Wednesday 7:45 AM EDT ?? Where: [address] [address]- Status: Pending You Need to Schedule the Following Appointments Follow Up with??Jessica Perrin MD When:??Within 1 to 2 weeks Where: ?? Discharge Medications KRUNAL ALVARENGA :1945 Visit Date:05/18/2024 Medications: Please continue your medications until treatment is completed or stopped by your provider. Medications not listed below should be discontinued. Discuss any questions related to medications with your provider. What How Much When Why Instructions Next Dose Unchanged Acetaminophen (acetaminophen 650 mg oral tablet, extended release) 2 tab(s) Oral Every 8 hours as needed for Pain (do not crush or chew) (not to exceed 6 tablets/ day) ?? Take as directed Unchanged Albuterol (Albuterol (Eqv-ProAir HFA) 90 mcg/ inh inhalation aerosol) 2 puff(s) Inhalation Every 6 hours as needed for Wheezing/Shortness of Breath Take as directed Unchanged apixaban (Eliquis 5 mg oral tablet) 1 tab(s) Oral Twice a day Take on tonight Unchanged Budesonide (budesonide 0.5 mg/ 2 mL inhalation suspension) 2 Milliliter Inhalation Twice a day Take on tonight Unchanged Calcium And Vitamin D Combination (calcium (as citrate)-vitamin D 315 mg-250 intl units oral tablet) 2 tab(s) Oral Twice a day Duration: 90 Days Take on tonight Unchanged Ciclopirox Topical (ciclopirox 8% topical solution) 1 kristy Topically Daily as directed to affected area toenails ?? Take as directed Unchanged Conjugated Estrogens Topical (Premarin Vaginal 0.625 mg/ gm cream with applicator) See instructions APPLY 1/ 2 GRAM IN THE VAGINA EVERY WEDNESDAY AND WEDNESDAY ?? Take as directed Unchanged Desloratadine (Clarinex 5 mg oral tablet) 1 tab(s) Oral Daily Duration: 90 Days Take on today Unchanged Diclofenac Topical (diclofenac 1% topical gel) 2 gram Topically 4 times a day Duration: 14 Days Take on this afternoon Unchanged Diltiazem (Matzim LA 180 mg/ 24 hours oral tablet, extended release) 1 tab(s) Oral Daily in the morning Duration: 90 Days Take at 11 AM ?? Take on tomorrow Unchanged Durable Medical Equipment (Alcohol Wipes) See instructions Diabetes mellitus type 2 use daily ??for blood sugar testing once ??a day Dx ??DM type 2 E11.9 ?? Unchanged Durable Medical Equipment (Compression- Lower Extremity (Knee High)) See instructions use daily; closed toes; 15-20 mmHg. Dx peripheral vascular insufficiency I 87.2 ?? Unchanged Durable Medical Equipment (Juxtafit Knee-high Compression Garments(bilateral, left, right) with 2 pairs of liners) See instructions History of DVT in adulthood as directed ?? Unchanged Durable Medical Equipment (Lancets) See instructions DM type 2 use daily for blood sugar testing once ??a day Dx ??DM type 2 E11.9 One Touch Delica ?? 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 1 pair ?? 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 3 pairs ?? Unchanged Durable Medical Equipment (Test Strips) See instructions Diabetes mellitus type 2 use daily for blood sugar testing once ??a day Dx ??DM type 2 E11.9 One Touch Ultra ?? Unchanged EPINEPHrine (EPINEPHrine 0.3 mg injectable solution) 0.3 Milligram Intramuscular Once as needed for Anaphylactic Reaction Take as directed Unchanged Escitalopram (escitalopram 10 mg oral tablet) 1 tab(s) Oral Daily discontinue citalopram ?? Take on tomorrow Unchanged Fluticasone Nasal (fluticasone 50 mcg/ inh nasal spray) 2 spray(s) Nares, Both Daily Duration: 90 Days Use every day during allergy season. While using spray keep head down. ?? Take on today Unchanged Fluticasone-Salmeterol (Wixela Inhub 100 mcg-50 mcg inhalation powder) 1 inhalation Inhalation Twice a day Asthma J45..0rinse mouth and throat after use ?? Unchanged Formoterol (formoterol 10 mcg/ mL inhalation solution) See instructions USE 2 ML VIA NEBULIZER TWICE DAILY USING A CONTINUOUS FLOW VIA NEBULIZER ?? Unchanged hydrALAZINE (hydrALAZINE 25 mg oral tablet) See instructions By mouth 2 tab in 7 AM, ??1 tab at1PM and ??2 PM at 4PM ?? 90-day supply ?? Unchanged Levothyroxine (levothyroxine 0.05 mg oral tablet) 1 tab(s) Oral Daily Duration: 90 Days Unchanged Lisinopril (lisinopril 40 mg oral tablet) 1 tab(s) Oral Daily in the morning Duration: 90 Days 11 AM Decreased dose ?? Unchanged Mepolizumab (Nucala Prefilled Autoinjector 100 mg/ mL subcutaneous solution) 100 Milligram Subcutaneous Infusion Every 28 days j45.40 ?? Unchanged Metformin (MetFORMIN (Eqv-Glucophage XR) 500 mg oral tablet, extended release) 1 tab(s) Oral Two times a day with meals INCREASE DOSE ?? Unchanged Metoprolol (metoprolol 25 mg oral tablet, extended release) 1 tab(s) Oral Daily Unchanged Mirtazapine (mirtazapine 15 mg oral tablet) 0.5 tab(s) Oral Daily at Bedtime Duration: 90 Days Unchanged Montelukast (montelukast 10 mg oral tablet) 1 tab(s) Oral Daily at Bedtime SUPPLY. ?? Unchanged Omeprazole (omeprazole 20 mg oral enteric coated capsule) 1 capsule Oral Daily Duration: 90 Days 30 minutes before breakfast ?? Unchanged Pravastatin (pravastatin 80 mg oral tablet) 1 tab(s) Oral Daily Duration: 90 Days Unchanged Spironolactone (spironolactone 25 mg oral tablet) 1 tab(s) Oral Daily in the morning at ??11 AM Given by fitter/welder, Dr. Indio Mason ?? Unchanged Triamcinolone Topical (triamcinolone 0.025% topical cream) 1 kristy Topically 3 times a day Itching PRN itching Apply to lower extremities Lao ?? Prescription Given During Visit No new medications prescribed at time of discharge.?? Laboratory Results Below is a partial list of the most recent Laboratory test results done prior to this discharge. You may have had other tests and procedures not included in this list. Please discuss all test resultswith your provider. Basic Metabolic Panel (05/20/2024) ???Sodium - 141 mmol/L???Potassium - 2.9 mmol/L???Chloride - 102 mmol/L???Bicarbonate Level - 29 mmol/L???Anion Gap - 10???Glucose Level - 119 mg/dL???BUN - 6 mg/dL???Creatinine-Blood - 0.79 mg/dL???Estimated GFR Creatinine - 76 ML/MIN/1.73 M2???Calcium - 8.7 mg/dL CBC (05/20/2024) ???WBC - 9.6 k/mm3???RBC - 4.02 m/mm3???Hgb - 10.9 Gm/dL???Hct - 33.7 %???MCV - 83.8 femtoliters???MCH - 27.1 pg???MCHC - 32.3 g/dL???Platelet Count - 293 k/mm3???RDW-SD - 44.2 femtoliters???MPV - 9.6 femtoliters???Nucleated RBC (Automated) - 0.0 #/100 WBC'S???Abs. NRBC - 0.0 k/mm3 CBC w/ Differential (05/18/2024) ???WBC - 10.1 k/mm3???RBC - 4.07 m/mm3???Hgb - 10.9 Gm/dL???Hct - 33.6 %???MCV - 82.6 femtoliters???MCH - 26.8 pg???MCHC - 32.4 g/dL???Platelet Count - 295 k/mm3???RDW-SD - 42.5 femtoliters???MPV - 9.7 femtoliters???Nucleated RBC (Automated) - 0.0 #/100 WBC'S???Abs. NRBC - 0.0 k/mm3???Abs. Neut - 5.5 k/mm3???Abs. Lymph - 3.6 k/mm3???Abs. [place] - 0.8 k/mm3???Abs. Eo - 0.1 k/mm3???Abs. Baso - 0.1 k/mm3???Neut % - 54.7 %???Lymph % - 35.6 %???[place] % - 7.9 %???Eos % - 0.9 %???Baso % - 0.6 %???Imm Gran - 0.3 %???Abs. Imm Gran - 0.0 k/mm3 Comprehensive Metabolic Panel (05/18/2024) ???Sodium - 141 mmol/L???Potassium - 3.1 mmol/L???Chloride - 103 mmol/L???Bicarbonate Level - 26 mmol/L???Anion Gap - 12???Glucose Level - 179 mg/dL???BUN - 13 mg/dL???Creatinine-Blood - 1.16 mg/dL???Estimated GFR Creatinine - 48 ML/MIN/1.73 M2???Calcium - 8.9 mg/dL???Protein, Total - 7.2 Gm/dL???Albumin - 4.3 Gm/dL???AG Ratio - 1.5???Alkaline Phosphatase - 67 units/L???AST (SGOT) - 12 units/L???ALT (SGPT) - 14 units/L???Bilirubin, Total - 0.2 mg/dL COVID-19 (Novel Coronavirus), Rapid PCR (05/18/2024) ???COVID-19 by RT-PCR - NEGATIVE D Dimer (05/19/2024) ? ?D-Dimer - <0.19 mg/L FEU High??Sensitivity??Troponin T (05/19/2024) ???High Sensitivity Troponin (HSTnT) - 20 ng/L HOLD LAVENDER TUBE (05/20/2024) ???Hold Lavender Top - SPECIMEN DISCARDED AFTER 24 HOURS. INR (05/18/2024) ???INR - 1.1???Protime (PT) - 11.8 seconds Lactate Level (05/19/2024) ???Lactate - 3.0 mmol/L Lactic Acid Level (05/20/2024) ???Lactate - 0.9 mmol/L LFT's (05/20/2024) ???Protein, Total - 6.8 Gm/dL???Albumin - 3.9 Gm/dL???Alkaline Phosphatase - 61 units/L???AST (SGOT) - 15 units/L? ?ALT (SGPT) - 12 units/L? ?Bilirubin, Total - 0.3 mg/dL? ?Bilirubin, Direct - <0.2 mg/dL???Bilirubin, Indirect - Direct bilirubin is less than the measureable limit. Therefore, indirect Lipase (05/18/2024) ???Lipase - 30 units/L MAGNESIUM (05/20/2024) ???Magnesium - 1.7 mg/dL Potassium Level (05/20/2024) ???Potassium - 3.7 mmol/L ProBNP (05/18/2024) ???Nt-Probnp - 78 pg/mL Troponin T, High Sensitivity (05/19/2024) ???High Sensitivity Troponin (HSTnT) - 12 ng/L TSH with T4 Reflex (Adults Only) (05/18/2024) ???TSH - 3.79 uIU/mL Urinalysis w/hold for Urine Culture (05/18/2024) ???Appear/Color, Urine - COLORLESS???Specific [place], Urine - 1.007???pH, Urine - 7.0???Albumin, Urine - NEGATIVE???Glucose, Urine - NEGATIVE???Ketones, Urine - NEGATIVE???Bilirubin, Urine - NEGATIVE???Hemoglobin, Urine - NEGATIVE???Nitrite, Urine - NEGATIVE???Leukocyte, Urine - NEGATIVE???Urobilinogen - NORMAL? ?WBC's, Urine - 1 /HPF? ?RBC's, Urine - 1 /HPF? ?Squamous Epith - <1 /HPF? ?Mucus- SLIGHT???Hold Urine Culture - Testing available 48 hours from time of collection. You will be contacted within 72 hours with your results. Allergies (NKA means No Known Allergies) dexamethasone??(Swelling of throat 10-DEC-2015 19:14:30<$>) predniSONE??(Itchy skin eruption) tramadol??(Itch) Problems Active Problems??(20) *cca-[phone] S[employer] Level[employer] Machine Michelle Cain?? Allergic rhinitis?? Anxiety disorder?? Asthma?? Atrophic vaginitis?? Chronic anticoagulation secondary to unprovoked DVT?? Depression?? Diabetes mellitus type 2?? Diabetic neuropathy?? Diabetic peripheral angiopathy?? History of DVT in adulthood?? Hypertension?? Hypothyroidism?? Insomnia?? Mixed hyperlipidemia?? OA (osteoarthritis) of knee?? Obese class I?? Obstructive sleep apnea?? Osteopenia?? Varicose vein?? Education Materials Below is the list of Educational Leaflet Providered with your Discharge Instructions. [employer]ite Patient Education - High Blood Pressure, Established, Out of Control?? Valuables and Belongings I fully understand and agree that [facility] accepts no responsibility for all my [...] Review of Valuable and Belonging List: With patient Date for Pt to Sign Valuables/Belongings: 05/19/24 06:56:00 ?? Other Discharge Information ? Pulmonary Rehab Status?? Pulmonary Rehab Discharge Status?? Respiratory Rate: 17 br/min ? Common Emergency Awareness Tips IS [...] are strongly encouraged to quit. Please call [facility] at [phone] or [phone] ([phone]) or log in to [email or web address] for referrals to smoking cessation programs. ?? 812 Suicide & Crisis Lifeline is available 05/04 if you or someone you know needs to find a reason to keep living. By calling 991 you'll be connected to a skilled, trained counselor at a crisis center in your area. INPATIENT DISCHARGE INSTRUCTIONS SIGNATURE TONIA LYLE KRUNAL Location:[facility] Registration Date and Time:05/18/2024 21:32 EDT Primary Care Physician: Jessica Perrin MD, Attending Physician: Fidencio Rooney MDhmina, KRUNAL GRAY, have received the above patient education materials/instructions and have verbalizedunderstanding. If ambulance or transport services are being used I further acknowledge being given a choice of service. ?? If you need to contact me, please call me at this number: . Patient/Vaccinator Name: Patient/Vaccinator Signature: Relationship to Patient: Witness Name/Signature: Date: * Beth Rooney MD: PERFORM Event Display: Patient Education Leaflets Authored Date: [id number] High Blood Pressure, Established, Out of Control ?? [id number] Presi??n arterial brissa no controlada (declarada) [place] presi??n arterial estuvo inusualmente brissa hoy. La presi??n arterial puede estar brissa por variosmotivos. Por ejemplo, puede ocurrir marialuisa consecuencia de saltearse dosis de trinidad medicamento para la presi??n arterial. O gillian, puede pasar si usa otros medicamentos, marialuisa algunos inhaladores para el asma, descongestionantes, pastillas para adelgazar y drogas ilegales, marialuisa la coca??na y las anfetaminas. Otras causas de la presi??n arterial brissa pueden ser las siguientes: ??? Aumento de peso ??? Demasiada rylee en las comidas ??? Tabaquismo ??? Cafe??na ??? Falta de actividad f??karen ??? Dolor intenso ??? Estar molesto: incluye sentir miedo, enojo u otra emoci??n coral Las mediciones de la presi??n arterial se heather en dos n??meros. La presi??n arterial sist??lica es el n??fozia superior. Es la presi??n cuando el coraz??n se contrae. La presi??n arterial diast??lica es el n??fozia inferior. Es la presi??n cuando el coraz??n se relaja entre latidos. Tal?? que las lecturas de la presi??n arterial se escriben juntas. Por ejemplo, si juliano persona tiene juliano presi??n sist??lica de??118 y juliano presi??n diast??lica de??78, en el registro m??dico se anotar?? que tiene 118/78. Para que le diagnostiquen presi??n arterial brissa, los n??meros deben estar por encima del l??mitenormal luego de haberlo evaluado shaneka cierto tiempo. La presi??n arterial se clasifica en normal, elevada, o presi??n arterial brissa de etapa??1 o de etapa??2: ??? La presi??n arterial normal es sist??lica maria dolores que??120 y diast??lica maria dolores que??80 (120/80) ??? La presi??n arterial elevada es sist??lica entre??120 y??129 y diast??lica maria dolores que??80 ??? La presi??n arterial brissa de etapa??1 es sist??lica entre??130 y??139 odiast??lica entre??80 y??89 ??? La presi??n arterial brissa de etapa??2 es sist??lica de??140 o superior o diast??lica de??90 o superior La presi??n arterial brissa no controlada puede causar problemas graves de leydi. Aumenta el riesgo de tener un ataque al coraz??n, un ataque cerebral e insuficiencia card??sofia y renal. Sin embargo, hay muchas cosas que puede hacer para controlar la presi??n arterial. En general, si tiene presi??n arterial brissa, mantenerla por debajo de los 130/80??mmHg puede ayudar a evitar estos problemas. El proveedor de atenci??n m??dica puede recetarle medicamentos para ayudar a controlar la presi??n arterial en gopal de que los cambios en el estilo de sarah no benjamin suficientes. Cuidados en el hogar Es importante sathish medidas para disminuir la presi??n arterial. Si est?? tomando medicamentos parala presi??n arterial, entonces estos m??todos pueden reducir o eliminar la necesidad de medicamentos en el futuro. ??? Si est?? excedido de peso, comience un programa para adelgazar. ??? Reduzca la cantidad de rylee en trinidad dieta: o No consuma alimentos con alto contenido de rylee, marialuisa aceitunas, pepinillos, campos ahumadas, sopas enlatadas, embutidos o mahad fritas. o No agregue rylee a la comida en la owens. o Solo use chencho??as cantidades de rylee cuando cocina. ??? Comience un programa de ejercicios. Hable con el proveedor de atenci??n m??dica sobre qu?? tipo de programa de ejercicios ser??a mejor para usted. No tiene que ser dif??cil. Incluso juliano caminata en??rgica de 20??minutos 3??veces por semana es juliano buena manera de ejercitarse. ??? No use medicamentos que tengan estimulantes del coraz??n. Por ejemplo,muchas de las pastillas y los aerosoles descongestionantes para la cavidad nasal y los resfr??os, de venta nurys, as?? marialuisa las pastillas para adelgazar. Robina las advertencias de la etiqueta para la presi??n arterial brissa. Antes de comprar cualquier suplemento o medicamento de venta nurys, consulte siempre con el farmac??utico acerca de la posible interacci??n del producto con willis medicamentos para la presi??n arterial brissa y con trinidad afecci??n. ??? Los estimulantes, marialuisa la anfetamina o la coca??na, pueden ser letales para juliano persona con presi??n arterial brissa, as?? marialuisa para quienes ness ciertos medicamentos para la presi??n arterial. Nunca use garth tipo de estimulantes. ??? Limite el consumo de cafe??na. Considere cambiarla por bebidas descafeinadas. ??? Deje de fumar. Si hace muchos a??os que fuma, esto puede ser dif??cil. Inscr??base en un programa para dejar de fumar a fin de tenermayores probabilidades de lograrlo. Hable con trinidad proveedor sobre maneras de dejar el h??bito. ??? Aprenda a controlar mejor el estr??s. Es juliano parte fundamental de cualquier programa para bajar la presi??n arterial. Aprenda maneras de relajarse. Estas pueden ser la meditaci??n, el yoga o la biorretroalimentaci??n. ??? Si le recetaron medicamentos, t??melos siguiendo exactamente las indicaciones que le hayan dado. Si omite alguna dosis, trinidad presi??n arterial puede salirse de control. No deje de sathish willis medicamentos, incluso si se siente mejor o siente que ya no los necesita. Hable con el proveedor de atenci??n m??dica. ??? Si omite juliano dosis o m??s de los medicamentos, hable con trinidad proveedor de atenci??n m??dica o farmac??utico. ??? Considere la posibilidad de comprar un medidor de presi??n arterial. [place] proveedor posiblemente le recomiende alg??n tipo espec??fico. Estos se encuentran disponibles en la mayor??a de las farmacias. Lo ideal es que se tome la presi??n arterial dos veces ald??a, juliano por la ma??krunal y juliano al atardecer. Trate de ser anita. Controle trinidad presi??n arterial aproximadamente al mismo horario todos los d??as para compararla mejor. Mantenga un registro de las lecturas de presi??n arterial que dangelo?? en trinidad hogar y ll??velo a las citas m??dicas. La [place] [employer] (Asociaci??n Cardiol??gica Estadounidense) aconseja estas otras pautas para controlar la presi??n arterial en el hogar. ??? No fume ni agustin caf?? por 30??minutos antes de tomarse la presi??n arterial. ??? Vaya al ba??o antes de hacer la prueba. ??? Rel??stacey shaneka 5??minutos antes de tomarse la presi??n. ??? Si??ntese correctamente. Aseg??rese de que trinidad espalda est?? apoyada. No se siente en un sill??n ni en juliano silla mullida. No cruce los pies y ap??yelos en el piso. El brazo debe estar apoyado en juliano superficie s??una plana (marialuisa juliano owens) con la parte superior del brazo al nivel del coraz??n. Aseg??rese de que la mitad del tensi??metro est?? jeanine encima de la parte interior del codo. Revise el manual de instrucciones del tensi??metro para tener juliano referencia visual. ??? T??mese varias veces la presi??n a fin de obtener varias lecturas. Cada vez que se tome la presi??n, obtenga 2??o 3??lecturas con 1??minuto de diferencia y registre todos los result ados. ??? Mida trinidad presi??n arterial a la misma hora todos los d??as o seg??n le recomiende trinidad proveedor de atenci??n m??dica. ??? Registre la fecha, la hora y la lectura de la presi??n arterial. ??? Lleve el registro a trinidad pr??xima sae. Si trinidad tensi??metro dom??stico posee juliano memoria interna, solo lleve el dispositivo a trinidad pr??xima sae m??dica. ??? Llame al proveedor si tiene varias lecturas brissa s. No se asuste si tiene juliano lectura brissa, gorge si tiene varias lecturas altas, consulte con trinidad proveedor de atenci??n m??dica. ??? Nota: Si la presi??n arterial alcanza un valor sist??franca (n??fozia superior) de??180 o m??s alto o un valor diast??franca (n??fozia inferior) de??110 o m??s alto, necesita tratamiento m??dico de emergencia. Llame de inmediato al proveedor de atenci??n m??dica. ?? Atenci??n de seguimiento Juliano parte importante del cuidado son las visitas regulares al proveedor de atenci??n m??dica para??las revisiones??de la presi??n arterial y el ajuste de los medicamentos. Programe juliano sae de seguimiento seg??n le indiquen. Lleve el registro de lecturas de presi??n arterial que midi?? en trinidad hogar a la sae m??dica. ?? Cu??ndo debe buscar atenci??n m??dica Llame al proveedor de atenci??n m??dica de inmediato ante cualquiera de las siguientes situaciones: ??? Presi??n arterial que alcanza un valor sist??franca (n??fozia superior) de 180 o m??s alto o un valor diast??franca (n??fozia inferior) de 110 o m??s alto: necesita tratamiento m??dico de emergencia ??? Dolor punzante o zumbido en los o??dos ??? Sangrado nasal que se repite y no desaparece ??? Mareoso mareos con sensaci??n de que todo da vueltas (v??rtigo) Cu??ndo llamar al?? 911 Llame al?? 911 si tiene algo de lo siguiente: ??? Dolor de pecho, hombro, alyssa o parte superior de la espalda ??? Falta de aire ??? Dolor de lexi intenso ??? Carlene somnolencia, confusi??n o desmayos ??? Debilidad, hormigueo o entumecimiento en los m??sculos de la sofia, los brazos o las piernas ( especialmente en un lado del cuerpo) ??? Dificultad para hablar o para tal? Last Reviewed Date: 2022 ?? 1605-3211 [employer]. Todos los derechos reservados. Esta informaci??n no pretende sustituir la atenci??n m??dica profesional. S??lo trinidad m??dico puede diagnosticar y tratar un problema de leydi. ?? Patient Care team information Care Team Personnel Name: Haley Gonzalez RN Position: S RN Member Role: Primary Care Nurse Name: Shea Aparicio RN Position: S RN Member Role: Primary Care Nurse Name: Marychuy MCCLAIN, Jessica Position: [facility] Physician - Primary Care Member Role: PCP Address: Address: [address] [place] [address]- Care Team Related Persons Name: CARLISANDY Address: home [address] [place] [address] Name: COLT BOYCE Address: [address] [place] [address]
--- OUTSIDE RECORDS SUMMARY | 2024-07-06 12:03 | XMS_ITS | Continuity of Care Document ---
Author Organization [facility] Address [address] [place] [address]- Care Team Providers Care Commercial Real Estate Appraiser Name Role Phone Marychuy MCCLAIN, Jessica Primary Care Physician Encounter [facility] Date(s): 03/26/21 - 04/25/21 [facility]/[address] [address]- Attending Physician: Admtr, Dallin8 Allergies, Adverse Reactions, Alerts Substance Reaction Severity [...] Recorded Vaccine Date Status Refusal Reason SARS-CoV-2 (COVID-19) mRNA BNT-162b2 vac 11/16/20 Given SARS-CoV-2 (COVID-19) mRNA BNT-162b2 vac 10/26/20 Given influenza virus vaccine, inactivated 06/24/18 Give n [...] 03/10/21 15:25:00 EDT, Route to Pharmacy Electronically, [facility] #[id number], 165, cm, 12/25/20 10:00:00 EDT, Height, 88, kg, 11/03/19 18:19:00... Start Date: 03/10/21 Status: Ordered calcium (as citrate)-vitamin D 315 mg-250 intl units oral tablet 2 tablet, By Mouth, 2 times a day, Tej, # 360 tablet, 3 Refills, Maintenance, 03/26/21 13:03:00 EDT, Tablet, [facility] #[id number], 2 tablet By Mouth 2 times a day,x90 days,Instr:Tej, 165, cm, 03/26/21 11:57:00 EDT, Height, 88, kg, 11/03/19 18... Start Date: 03/26/21 Stop Date: 03/21/22 Status: Ordered celecoxib 100 mg oral capsule 1 capsule = 100 mg, By Mouth, 2 times a day, PRN knee pain, # 60 capsule, 5 Refills, Maintenance, 03/26/21 13:08:00 EDT, Capsule, [facility] #[id number], 165, cm, 03/26/21 11:57:00 EDT, Height, 88, kg, 11/03/19 18:19:00 EST, Dry Weight Start Date: 03/26/21 Status: Ordered citalopram 20 mg oral tablet 20 mg, 1, tablet, By Mouth, Daily, # 90 tablet, Refills 3, Tot. Refills 3, Maintenance, 07/01/20 17:44:00 EDT, Route to Pharmacy Electronically, [facility] #[id number], is awared of interaction w nicky, 165, cm, 11/03/19 18:19:00 EST, He... Start Date: 07/01/20 Status: Ordered Clarinex 5 mg oral tablet 1 tablet = 5 mg, By Mouth, Daily, Discontinue loratadine, # 30 tablet, 11 Refills, Maintenance, 03/26/21 13:02:00 EDT, Tablet, [facility] #[id number], 165, cm, 03/26/21 11:57:00 EDT, Height, 88,kg, 11/03/19 18:19:00 EST, Dry Weight Start Date: 03/26/21 Status: Ordered Colace sodium 100 mg oral capsule 100 mg, 1, capsule, By Mouth, 2 times a day, PRN, with plenty of water, # 180 capsule, Refills 3, Tot. Refills 3, Maintenance, as needed for constipation, 03/26/21 13:05:00 EDT, Route to Pharmacy Electronically, [facility] #[id number], Dispense o... Start Date: 03/26/21 Status: Ordered dilTIAZem 360 mg/24 hours oral tablet, extended release 1 tablet = 360 mg, By Mouth, Daily, # 90 tablet, 3 Refills, Maintenance, 09/05/20 9:01:00 EST, [facility] #[id number], 165, cm, 11/03/19 18:19:00 EST, Height, 88, kg, 11/03/19 18:19:00 EST, Dry Weight Start Date: 09/05/20 Status: Ordered Dulera 200 mcg-5 mcg/inh inhalation aerosol 2 puffs, Inhalation, 2 times a day, # 13 Gm, 11 Refills, Maintenance, 08/10/20 16:21:00 EST, Aerosol, [facility] #[id number], 2 puffs Inhalation 2 times a day, 165, cm, 11/03/19 18:19:00 EST, Height, 88, kg, 11/03/19 18:19:00 EST, Dry Weight Start Date: 08/10/20 Status: Ordered EPINEPHrine 0.3 mg injectable solution = 0.3 mg, Intramuscular, Once, PRN Anaphylactic Reaction, # 1 each, 0 Refills, Soft Stop, 06/26/20 8:38:00 EDT, [facility] #[id number], 165, cm, 11/03/19 18:19:00 EST, Height, 88, kg, 11/03/19 18:19:00 EST, Dry Weight Start Date: 06/26/20 Status: Ordered fluticasone 50 mcg/inh nasal spray 2 sprays, Nares, Both, Daily, Use every day during allergy season. While using spray keep head down. 30 days not 90 days dispense when patient requested by patient, # 16 Gm, 5 Refills, Maintenance, 12/30/20 15:00:00 EDT, [facility] #[id number]... Start Date: 12/30/20 Status: Ordered hydrALAZINE 10 mg oral tablet 10 mg, 1, tablet, By Mouth, 2 times a day, decrease dose, # 180 tablet, Refills 3, Tot. Refills 3, Maintenance, 06/26/20 8:44:00 EDT, Route to Pharmacy Electronically, [facility] #[id number], 165, cm, 11/03/19 18:19:00 EST, Height, 88, kg, 11/03/... Start Date: 06/26/20 Stop Date: 06/21/21 Status: Ordered hydrochlorothiazide-lisinopril 25 mg-20 mg oral tablet 1 tablet, By Mouth, Daily, # 90 tablet, 3 Refills, Maintenance, 12/25/20 11:11:00 EDT, Tablet, [facility] #[id number], 90 days, 1 tablet By Mouth Daily, 165, cm, 12/25/20 10:00:00 EDT, Height, 88, kg, 11/03/19 18:19:00 EST, Dry Weight Start Date: 12/25/20 Status: Ordered Lancets See Instructions, # 50 [...] supply, # 90 tablet, 1 Refills, Maintenance, 03/04/21 10:16:00 EDT, [facility] #[id number], 165, cm, 12/25/20 10:00:00 EDT, Height, 88, kg, 11/03/19 18:19:00 EST, Dry Weight Start Date: 03/04/21 Status: Ordered metFORMIN 500 mg oral tablet 1 tablet, By Mouth, 2 times a day, # 180 tablet, 3 Refills, Maintenance, 09/16/20 17:27:00 EST, [facility] #[id number], 165, cm, 11/03/19 18:19:00 EST, Height, 88, kg, 11/03/19 18:19:00 EST, DryWeight Start Date: 09/16/20 Status: Ordered nystatin topical 084446 u/gm powder 1 application, Topically, 2 times a day, # 60 Gm, 1 Refills, Maintenance, 03/26/21 13:25:00 EDT, Powder, [facility] #[id number], Partial fill upon patient request if the prescription is for a schedule II opioid drug., 1 application Topically 2 ti... Start Date: 03/26/21 Status: Ordered Wfp-[id number]-[id number] medical-grade oxford diabetic shoes, depth or hightop Oes-jqw-gjmra medical-grade oxford diabetic shoes, depth or hightop, See Instructions, # 1 each, Refills 0, Tot. 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 Start Date: 12/25/20 Status: Ordered pravastatin 80 mg oral tablet 1 tablet = 80 mg, By Mouth, Daily, 90 days, # 90 tablet, 3 Refills, Maintenance, 12/25/20 11:15:00 EDT, Tablet, [facility] #[id number], 165, cm, 12/25/20 10:00:00 EDT, Height, 88, kg, 11/03/19 18:19:00 EST, Dry Weight Start Date: 12/25/20 Status: Ordered Premarin Vaginal 0.625 mg/gm cream with applicator = 0.5 Gm, Vaginally, Every Wednesday and , # 42.5 Gm, 11 Refills, Maintenance, 03/26/21 13:01:00 EDT, [facility] #[id number], 0.5 Gm Vaginally Every Wednesday and , 165, cm, 03/26/21 11:57:00 EDT, Height, 88, kg, 11/03/19 18:19:00 EST,... Start Date: 03/26/21 Status: Ordered PriLOSEC OTC 20 mg oral delayed release tablet 1 tablet = 20 mg, By Mouth, Daily, Take 30 mins before breakfast, # 90 tablet, 2 Refills, Maintenance, 04/08/21 10:07:00 EDT, [facility] #[id number], is awared of interaction with citalopram;Duplicate rx; original sent 12/25/20. Remaining r... Start Date: 04/08/21 Status: Ordered Remeron 15 mg oral tablet 0.5 tablet = 7.5 mg, By Mouth, Daily at bedtime, Decreased dose, # 45 tablet, 3 Refills, Maintenance, 03/26/21 13:13:00 EDT, Tablet, [facility] #[id number], 165, cm, 03/26/21 11:57:00 EDT, Height, 88, [...] tablet, Refills 3, Tot. Refills 3, Maintenance, 12/25/20 11:14:00 EDT, Route to Pharmacy Electronically, [facility] #[id number], 165, cm, 12/25/20 10:00:00 EDT, Height, 88, kg, 02... Start Date: 12/25/20 Status: Ordered Sinus rinse Sinus rinse, See [...] Height, 88... Start Date: 03/26/21 Status: Ordered us doppler ext lower venous left us doppler ext lower venous left, See Instructions, # 1 each, Refills 0, Tot. Refills 0, Maintenance, evaluate for LLE DVT Please send to ED if positive, 04/24/21 0:09:00 EDT, Supply Start Date: 04/24/21 Status: Ordered Ventolin HFA 108 mcg/inh inhalation aerosol with adapter 2 puffs, Inhalation, 4 times a day, PRN Wheezing/Shortness of Breath, as directed 15 minutes beforeexercise 30 days not 90 days dispense when patient request it, # 8.5 Gm, 5 Refills, Maintenance, 03/26/21 13:06:00 EDT, [facility] #[id number]... Start Date: 03/26/21 Status: Ordered Vitamin C 500 mg oral tablet 1 tablet = 500 mg, By Mouth, Daily, # 30 tablet, 0 Refills, Maintenance, 07/05/20 14:18:00 EDT, Tablet Start Date: 07/05/20 Status: Ordered Problem List Condition Effective Dates [...] 9, 10, 11, 12, 13 08/09/06 Active *[id number] Care Partn jb Dolorestaya Cabrera(Confirmed) Active Prurigo nodularis(Confirmed) 08/17/08 Active Renal insufficiency(Confirmed) Active Non-insulin dependent type 2 diabetes mellitus(Confirmed) 01/24/09 Active Varicose vein(Confirmed) Active Vitamin D deficiency(Confirmed) 07/26/08 Active 1CKD Stage III. 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
--- OUTSIDE RECORDS SUMMARY | 2024-07-06 12:03 | XMS_ITS | Continuity of Care Document ---
Author Organization [facility] Address [address] [place] [address]- Care Team Providers Care Graphic Art Designer Name Role Phone Marychuy MCCLAIN, Jessica Primary Care Physician Encounter [facility] Date(s): 09/30/22 - 10/30/22 [facility] [address]- Attending Physician: AdmtrDominik Allergies, Adverse Reactions, Alerts Substance [...] Vaccine Date Status Refusal Reason SARS-CoV-2 mRNA (zobommm-bixx-sdrba) vax 02/17/22 Given influenza virus vaccine, inactivated [...] influenza virus vaccine, inactivated 3 10/16/09 Gi jvaon influenza virus vaccine, inactivated 4 07/26/08 Gi [...] tablet, 11 Refills, Maintenance, 05/13/22 11:27:00 EDT, [facility] #[id number], Partial fill upon cherelle... Start Date: 05/13/22 Status: Ordered albuterol 0.083% inhalation solution 3 mL = 2.5 mg, Inhalation, Every 6 hours, # 25 each, 5 Refills, Maintenance, 08/12/22 15:02:00 EST,[facility] #[id number], 165, cm, 06/18/22 13:19:00 EDT, Height, 88.9, kg, 02/09/22 15:14:00 EDT, Dry Weight Start Date: 08/12/22 Stop Date: 02/08/23 Status: Ordered budesonide 0.5 mg/2 mL inhalation suspension 0.5 mg, 2, mL, Neb, 2 times a day, # 120 mL, Refills 11, Tot. Refills 11, Maintenance, 10/16/22 16:58:00 EST, Suspension, Route to Pharmacy Electronically, [id number], [facility] #[id number], 163, cm, 10/16/22 16:21:00 E... Start Date: 10/16/22 Status: Ordered budesonide 0.5 mg/2 mL inhalation suspension 0.5 mg, 2, mL, Neb, 2 times a day, # 120 mL, Refills 11, Tot. Refills 11, Maintenance, 08/13/22 15:24:00 EST, Suspension, Route to Pharmacy Electronically, [id number], [facility] #[id number], 165, cm, 06/18/22 13:19:00 E... Start Date: 08/13/22 Status: Ordered calcium (as citrate)-vitamin D 315 mg-250 intl units oral tablet 2 tablet, By Mouth, 2 times a day, # 360 tablet, 0 Refills, Maintenance, 09/11/22 8:59:00 EST, [facility] #[id number], 90, TAKE 2 TABLETS BY MOUTH TWICE DAILY, 165, cm, 06/18/22 13:19:00 EDT, Height, 88.9, kg, 02/09/22 15:14:00 EDT, Dry Weight Start Date: 09/11/22 Status: Ordered citalopram 20 mg oral tablet 20 mg, 1, tablet, By Mouth, Daily, # 90 tablet, Refills 3, Tot. Refills 3, Maintenance, 07/08/22 14:31:00 EDT, Route to Pharmacy Electronically, [facility] #[id number], is awared of interaction w [facility], 165, cm, 06/18/22 13:19:00 EDT, He... Start Date: 07/08/22 Status: Ordered Clarinex 5 mg oral tablet 1 tablet = 5 mg, By Mouth, Daily, # 90 tablet, 3 Refills, Maintenance, 04/29/22 12:53:00 EDT, Tablet, [facility] #[id number], 165, cm, 02/23/22 14:24:00 EDT, Height, 88.9, [...] 0 Refills, Soft Stop, 10/22/21 10:11:00 EST, [facility] #[id number], 165, cm, 10/22/21 9:05:00 EST, Height, 89.5, kg, 04/23/2121:43:00 EDT, Dry Weight Start Date: 10/22/21 Status: Ordered fluticasone 50 mcg/inh nasal spray See Instructions, SPRAY 2 TIMES IN EACH NOSTRILS EVERY DAY. NEEDED FOR ALLERGY SEASON. WHEN SPRAYING KEEP HEAD DOWN, # 16 Gm, 11 Refills, 02/17/22 13:14:00 EDT, [facility] #[id number], 30, SPRAY 2 TIMES IN EACH NOSTRILS EVERY DAY. NEEDED FO... Start Date: 02/17/22 Status: Ordered formoterol 10 mcg/mL inhalation solution 2 mL = 20 mcg, Inhalation, 2 times a day, using a continuous flow nebulizer, # 120 mL, 11 Refills, Maintenance, 10/16/22 16:58:00 EST, Solution, [facility] #[id number], Partial fill upon patientrequest if the prescription [...] 06/18/22 13:56:00 EDT, Route to Pharmacy Electronically, [facility] #[id number], Partial fill upon patient request if... Start [...] tablet, 11 Refills, Maintenance, 09/30/22 12:56:00 EST, [facility] #[id number], 163, cm, 09/30/22 11:48:00 EST, Height, 92.8, kg, 09/24/22 22:19:00 EST, Dry Weight Start Date: 09/30/22 Status: Ordered lisinopril 40 mg oral tablet 1 tablet = 40 mg, By Mouth, 2 times a day, increase dose discontinue HCTZ 12.5mg, # 60 tablet, 11 Refills, Maintenance, 09/30/22 12:54:00 EST, Tablet, [facility] #[id number], 163, cm, 09/30/22 11:48:00 EST, Height, 92.8, kg, 09/24/22 22:19:00... Start Date: 09/30/22 Stop Date: 09/25/23 Status: Ordered Matzim LA 360 mg/24 hours oral tablet, extended release 1 tablet, By Mouth, Daily, # 90 tablet, 3 Refills, 02/17/22 13:08:00 EDT, [facility] #[id number], 165, cm, 02/17/22 12:49:00 EDT, Height, 88.9, kg, 02/09/22 15:14:00 EDT, Dry Weight Start Date: 02/17/22 Status: Ordered metFORMIN 500 mg oral tablet, extended release 1 tablet = 500 mg, By Mouth, Daily in AM, discontinue metformin 500mg with meal, # 30 tablet, 11 Refills, Maintenance, 09/30/22 12:51:00 EST, ER Tablet, [facility] #[id number], 163, cm, 09/30/2310:48:00 EST, Height, 92.8, kg, 09/24/22 22:1... Start Date: 09/30/22 Status: Ordered mirtazapine 15 mg oral tablet 0.5 tablet, By Mouth, Daily at bedtime, DECREASED DOSE, # 45 tablet, 1 Refills, Maintenance, 10/20/22 20:06:00 EST, [facility] #[id number], 163, cm, 10/16/22 16:21:00 EST, Height, 92.8, kg, 09/24/22 22:19:00 EST, Dry Weight Start Date: 10/20/22 Status: Ordered montelukast 10 mg oral tablet 1, tablet, By Mouth, Daily at bedtime, SUPPLY., # 90 tablet, Refills 1, Maintenance, 06/18/22 14:04:00 EDT, Route to Pharmacy Electronically, [facility] #[id number], 165, cm, 06/18/22 13:19:00 EDT, Height, 88.9, kg, 02/09/22 15:14:00 EDT, Dry Weight Start Date: 06/18/22 Stop Date: 09/16/22 Status: Ordered Hdk-tvf-etsfv medical-grade oxford diabetic shoes, depth or hightop Nsh-uai-usmct medical-grade oxford diabetic shoes, depth or hightop, [...] Refills, Maintenance, 12/18/21 15:48:00 EDT, EC Capsule, [facility] #[id number], 165, cm, 10/29/21 12:16:00 EST,... Start Date: 12/18/21 Status: Ordered pravastatin 80 mg oral tablet 1 tablet, By Mouth, Daily, # 90 tablet, 1 Refills, Maintenance, 06/27/22 12:04:00 EDT, [facility] #[id number], 165, cm, 06/18/22 13:19:00 EDT, Height, 88.9, kg, 02/09/22 15:14:00 EDT, Dry Weight Start Date: 06/27/22 Status: Ordered Premarin Vaginal 0.625 mg/gm cream with applicator See Instructions, APPLY 1/2 GRAM IN THE VAGINA EVERY WEDNESDAY AND WEDNESDAY, # 30 Gm, 11 Refills, Maintenance, 05/11/22 14:58:00 EDT, [facility] #[id number], 30, APPLY 1/2 GRAM IN THE VAGINA EVERY WEDNESDAY AND WEDNESDAY, 165, cm, 02/23/22 14:24:00 EDT,... Start Date: 05/11/22 Status: Ordered ProAir HFA 90 mcg/inh inhalation aerosol with adapter 2, puffs, Inhalation, 4 times a day, PRN, # 1 each, Refills 11, Tot. Refills 11, Maintenance, 10/16/22 17:00:00 EST, Route to Pharmacy Electronically, [id number], [facility] #[id number], 163, cm, 10/16/22 16:21:00 EST, H... Start [...] 4, 5, 6, 7 Confirmed 08/09/06 Active *[phone] Community Development Specialist Francis Caity Confirmed Active Varicose vein Confirmed [...] team information Care Team Personnel Name: Carlos APREDES, Haley Position: [facility] RN Member Role: Primary Care Nurse Name: Marychuy MCCLAIN, Jessica Position: [facility] Primary Care Physician Member Role: PCP Address: Address: [address] [place] [address]- Care Team Related Persons Name: CARLI SANDY Address: home [address] [place] [address] Name: COLT BOYCE Address: home [address] [place] [address]
--- OUTSIDE RECORDS SUMMARY | 2024-07-06 12:03 | XMS_ITS | Continuity of Care Document ---
Author Organization [facility] Address [address] [place] [id number]- Care Team Providers Care Car Whacker Name Role Phone Marychuy MCCLAIN, Jessica Primary Care Physician [facility]counter [facility] Date(s): 12/24/22 - 01/23/23 [facility] [address] [place], [place] [address] Attending Physician: Dominik Elizabeth Admitting Physician: Dominik [...] Vaccine Date Status Refusal Reason SARS-CoV-2 mRNA (qywuhnb-msid-akkvo) vax 02/17/22 Given influenza virus vaccine, inactivated [...] tablet, 11 Refills, Maintenance, 05/13/22 11:27:00 EDT, [facility] #[id number], Partial fill upon cherelle... Start Date: 05/13/22 Status: Ordered albuterol 0.083% inhalation solution 3 mL = 2.5 mg, Inhalation, Every 6 hours, # 25 each, 5 Refills, Maintenance, 08/12/22 15:02:00 EST,[facility] #[id number], 165, cm, 06/18/22 13:19:00 EDT, Height, 88.9, kg, 02/09/22 15:14:00 EDT, Dry Weight Start Date: 08/12/22 Stop Date: 02/08/23 Status: Ordered apixaban 5 mg oral tablet 1 tablet = 5 mg, By Mouth, 2 times a day, # 180 tablet, 0 Refills, Maintenance, 12/16/22 16:34:00 EDT, Tablet, [facility] #[id number], Partial fill upon patient request if the prescription is for a schedule II opioid drug., 163, cm, 12/16/22 7:58... Start Date: 12/16/22 Stop Date: 03/16/23 Status: Ordered budesonide 0.5 mg/2 mL inhalation suspension 0.5 mg, 2, mL, Neb, 2 times a day, # 120 mL, Refills 11, Tot. Refills 11, Maintenance, 10/16/22 16:58:00 EST, Suspension, Route to Pharmacy Electronically, [id number], [facility] #[id number], 163, cm, 10/16/22 16:21:00 E... Start Date: 10/16/22 Status: Ordered budesonide 0.5 mg/2 mL inhalation suspension 0.5 mg, 2, mL, Neb, 2 times a day, # 120 mL, Refills 11, Tot. Refills 11, Maintenance, 08/13/22 15:24:00 EST, Suspension, Route to Pharmacy Electronically, [id number], [facility] #[id number], 165, cm, 06/18/22 13:19:00 E... Start Date: 08/13/22 Status: Ordered calcium (as citrate)-vitamin D 315 mg-250 intl units oral tablet 2 tablet, By Mouth, 2 times a day, # 360 tablet, 0 Refills, Maintenance, 12/07/22 14:46:00 EDT, [facility] #[id number], 90, 2 tablet By Mouth 2 times a day, 163, cm, 11/05/22 16:59:00 EST, Height, 90, kg, 02/23/23 16:59:00 EST, Dry Weight Start Date: 12/07/22 Status: Ordered citalopram 20 mg oral tablet 20 mg, 1, tablet, By Mouth, Daily, # 90 tablet, Refills 3, Tot. Refills 3, Maintenance, 07/08/22 14:31:00 EDT, Route to Pharmacy Electronically, [facility] #[id number], is awared of interaction w [facility], 165, cm, 06/18/22 13:19:00 EDT, He... Start Date: 07/08/22 Status: Ordered Clarinex 5 mg oral tablet 1 tablet = 5 mg, By Mouth, Daily, # 90 tablet, 3 Refills, Maintenance, 04/29/22 12:53:00 EDT, Tablet, [facility] #[id number], 165, cm, 02/23/22 14:24:00 EDT, Height, 88.9, [...] 0 Refills, Soft Stop, 10/22/21 10:11:00 EST, [facility] #[id number], 165, cm, 10/22/21 9:05:00 EST, Height, 89.5, kg, 04/23/2121:43:00 EDT, Dry Weight Start Date: 10/22/21 Status: Ordered fluticasone 50 mcg/inh nasal spray See Instructions, SPRAY 2 TIMES IN EACH NOSTRILS EVERY DAY. NEEDED FOR ALLERGY SEASON. WHEN SPRAYING KEEP HEAD DOWN, # 16 Gm, 11 Refills, 02/17/22 13:14:00 EDT, [facility] #[id number], 30, SPRAY 2 TIMES IN EACH NOSTRILS EVERY DAY. NEEDED FO... Start Date: 02/17/22 Status: Ordered formoterol 10 mcg/mL inhalation solution 2 mL = 20 mcg, Inhalation, 2 times a day, using a continuous flow nebulizer, # 120 mL, 11 Refills, Maintenance, 10/16/22 16:58:00 EST, Solution, [facility] #[id number], Partial fill upon patientrequest if the prescription [...] 11/05/22 17:53:00 EST, Route to Pharmacy Electronically, [facility] #[id number], Partial fill upon patient request if the prescription is for a schedule II opi... Start Date: 11/05/22 Stop Date: 11/10/22 Status: Ordered gabapentin 300 mg oral capsule 300 mg, 1, capsule, By Mouth, 2 times a day, PRN, # 20 capsule, Refills 0, Tot. Refills 0, Maintenance, Pain , Severe, 11/05/22 17:53:00 EST, Route to Pharmacy Electronically, [facility] #[id number], Partial fill upon patient request if the presc... Start Date: 11/05/22 Stop Date: 11/15/22 Status: Ordered hydrALAZINE 25 mg oral tablet 25 mg, 1, tablet, By Mouth, 3 times a day, discontinue hydralazine 10mg, # 90 tablet, Refills 11, Tot. Refills 11, Maintenance, 06/18/22 13:56:00 EDT, Route to Pharmacy Electronically, [facility] #[id number], Partial fill upon patient request if... Start [...] tablet, 11 Refills, Maintenance, 09/30/22 12:56:00 EST, [facility] #[id number], 163, cm, 09/30/22 11:48:00 EST, Height, 92.8, kg, 09/24/22 22:19:00 EST, Dry Weight Start Date: 09/30/22 Status: Ordered lisinopril 40 mg oral tablet 1 tablet = 40 mg, By Mouth, 2 times a day, increase dose discontinue HCTZ 12.5mg, # 60 tablet, 11 Refills, Maintenance, 09/30/22 12:54:00 EST, Tablet, [facility] #[id number], 163, cm, 09/30/22 11:48:00 EST, Height, 92.8, kg, 09/24/22 22:19:00... Start Date: 09/30/22 Stop Date: 09/25/23 Status: Ordered Matzim LA 360 mg/24 hours oral tablet, extended release 1 tablet, By Mouth, Daily, # 90 tablet, 3 Refills, 02/17/22 13:08:00 EDT, [facility] #[id number], 165, cm, 02/17/22 12:49:00 EDT, Height, 88.9, kg, 02/09/22 15:14:00 EDT, Dry Weight Start Date: 02/17/22 Status: Ordered metFORMIN 500 mg oral tablet, extended release 1 tablet = 500 mg, By Mouth, Daily in AM, discontinue metformin 500mg with meal, # 30 tablet, 11 Refills, Maintenance, 09/30/22 12:51:00 EST, ER Tablet, [facility] #[id number], 163, cm, 09/30/2310:48:00 EST, Height, 92.8, kg, 09/24/22 22:1... Start Date: 09/30/22 Status: Ordered mirtazapine 15 mg oral tablet 0.5 tablet, By Mouth, Daily at bedtime, DECREASED DOSE, # 45 tablet, 1 Refills, Maintenance, 10/20/22 20:06:00 EST, [facility] #[id number], 163, cm, 10/16/22 16:21:00 EST, Height, 92.8, kg, 09/24/22 22:19:00 EST, Dry Weight Start Date: 10/20/22 Status: Ordered montelukast 10 mg oral tablet 1, tablet, By Mouth, Daily at bedtime, SUPPLY., # 90 tablet, Refills 1, Tot. Refills 1, Maintenance, 12/07/22 14:50:00 EDT, Route to Pharmacy Electronically, [facility] #[id number], 163, cm, 11/05/22 16:59:00 EST, Height, 90, kg, 11/05/22 16:59:0... Start Date: 12/07/22 Stop Date: 06/05/23 Status: Ordered Pwc-oer-tftsy medical-grade oxford diabetic shoes, depth or hightop Ubc-hok-bjagb medical-grade oxford diabetic shoes, depth or hightop, [...] Refills, Maintenance, 12/07/22 14:49:00 EDT, EC Capsule, [facility] #[id number], 163, cm, 11/05/22 16:59:00 EST,... Start Date: 12/07/22 Status: Ordered pravastatin 80 mg oral tablet 1 tablet, By Mouth, Daily, # 90 tablet, 1 Refills, Maintenance, 12/07/22 14:47:00 EDT, [facility] #[id number], 163, cm, 11/05/22 16:59:00 EST, Height, 90, kg, 11/05/22 16:59:00 EST, Dry Weight Start Date: 12/07/22 Status: Ordered Premarin Vaginal 0.625 mg/gm cream with applicator See Instructions, APPLY 1/2 GRAM IN THE VAGINA EVERY WEDNESDAY AND WEDNESDAY, # 30 Gm, 11 Refills, Maintenance, 05/11/22 14:58:00 EDT, [facility] #[id number], 30, APPLY 1/2 GRAM IN THE VAGINA EVERY WEDNESDAY AND WEDNESDAY, 165, cm, 02/23/22 14:24:00 EDT,... Start Date: 05/11/22 Status: Ordered ProAir HFA 90 mcg/inh inhalation aerosol with adapter 2, puffs, Inhalation, 4 times a day, PRN, # 1 each, Refills 11, Tot. Refills 11, Maintenance, 10/16/22 17:00:00 EST, Route to Pharmacy Electronically, [id number], [facility] #[id number], 163, cm, 10/16/22 16:21:00 EST, H... Start [...] day, PRN itching Apply to lower extremities [place], # 30 Gm, 0Refills, Maintenance, 01/07/23 14:27:00 EDT, [facility], Partial fill upon patient request [...] 4, 5, 6, 7 Confirmed 08/09/06 Active *[phone] Respiratory Coordinator Francis Caity Confirmed Active Severe obesity (BMI 35.0-39.9) with [...] team information Care Team Personnel Name: Carlos RNHaley Position: [facility] RN Member Role: Primary Care Nurse Name: Jessica Perrin MD Position: [facility] Primary Care Physician Member Role: PCP Address: Address: [address] [place] [address]- Care Team Related Persons Name: SANDY BOYCE Address: home [address] [place] [address] Name: COLT BOYCE Address: [address] [place] [address]
--- OUTSIDE RECORDS SUMMARY | 2024-07-06 12:03 | XMS_ITS | Continuity of Care Document ---
Author Organization [facility] Address [address] [place] [address]- Care Team Providers Care Lift Slab Operator Name Role Phone Marychuy MCCLAIN, Jessica Primary Care Physician Encounter [facility] Date(s): 01/05/23 - 02/04/23 [facility]/[place] [address]- [place] Allergies, Adverse Reactions, Alerts Substance Reaction [...] Vaccine Date Status Refusal Reason SARS-CoV-2 mRNA ([id number]) vax 02/17/22 Given influenza virus vaccine, inactivated [...] tablet, 11 Refills, Maintenance, 05/13/22 11:27:00 EDT, [facility] #[id number], Partial fill upon cherelle... Start Date: 05/13/22 Status: Ordered albuterol 0.083% inhalation solution 3 mL = 2.5 mg, Inhalation, Every 6 hours, # 25 each, 5 Refills, Maintenance, 08/12/22 15:02:00 EST,[facility] #[id number], 165, cm, 06/18/22 13:19:00 EDT, Height, 88.9, kg, 02/09/22 15:14:00 EDT, Dry Weight Start Date: 08/12/22 Stop Date: 5/29/23 Status: Ordered apixaban 5 mg oral tablet 1 tablet = 5 mg, By Mouth, 2 times a day, # 180 tablet, 0 Refills, Maintenance, 12/16/22 16:34:00 EDT, Tablet, [facility] #[id number], Partial fill upon patient request if the prescription is for a schedule II opioid drug., 163, cm, 12/16/22 7:58... Start Date: 12/16/22 Stop Date: 03/16/23 Status: Ordered budesonide 0.5 mg/2 mL inhalation suspension 0.5 mg, 2, mL, Neb, 2 times a day, # 120 mL, Refills 11, Tot. Refills 11, Maintenance, 10/16/22 16:58:00 EST, Suspension, Route to Pharmacy Electronically, [id number], [facility] #[id number], 163, cm, 10/16/22 16:21:00 E... Start Date: 10/16/22 Status: Ordered budesonide 0.5 mg/2 mL inhalation suspension 0.5 mg, 2, mL, Neb, 2 times a day, # 120 mL, Refills 11, Tot. Refills 11, Maintenance, 08/13/22 15:24:00 EST, Suspension, Route to Pharmacy Electronically, [id number], [facility] #[id number], 165, cm, 06/18/22 13:19:00 E... Start Date: 08/13/22 Status: Ordered calcium (as citrate)-vitamin D 315 mg-250 intl units oral tablet 2 tablet, By Mouth, 2 times a day, # 360 tablet, 0 Refills, Maintenance, 12/07/22 14:46:00 EDT, [facility] #[id number], 90, 2 tablet By Mouth 2 times a day, 163, cm, 11/05/22 16:59:00 EST, Height, 90, kg, 11/05/22 16:59:00 EST, Dry Weight Start Date: 12/07/22 Status: Ordered citalopram 20 mg oral tablet 20 mg, 1, tablet, By Mouth, Daily, # 90 tablet, Refills 3, Tot. Refills 3, Maintenance, 07/08/22 14:31:00 EDT, Route to Pharmacy Electronically, [facility] #[id number], MD is awared of interaction w nicky, 165, cm, 06/18/22 13:19:00 EDT, He... Start Date: 07/08/22 Status: Ordered Clarinex 5 mg oral tablet 1 tablet = 5 mg, By Mouth, Daily, # 90 tablet, 3 Refills, Maintenance, 04/29/22 12:53:00 EDT, Tablet, [facility] #[id number], 165, cm, 02/23/22 14:24:00 EDT, Height, 88.9, [...] 0 Refills, Soft Stop, 10/22/21 10:11:00 EST, [facility] #[id number], 165, cm, 10/22/21 9:05:00 EST, Height, 89.5, kg, 04/23/2121:43:00 EDT, Dry Weight Start Date: 10/22/21 Status: Ordered fluticasone 50 mcg/inh nasal spray See Instructions, SPRAY 2 TIMES IN EACH NOSTRILS EVERY DAY. NEEDED FOR ALLERGY SEASON. WHEN SPRAYING KEEP HEAD DOWN, # 16 Gm, 11 Refills, 02/17/22 13:14:00 EDT, [facility] #[id number], 30, SPRAY 2 TIMES IN EACH NOSTRILS EVERY DAY. NEEDED FO... Start Date: 02/17/22 Status: Ordered formoterol 10 mcg/mL inhalation solution 2 mL = 20 mcg, Inhalation, 2 times a day, using a continuous flow nebulizer, # 120 mL, 11 Refills, Maintenance, 10/16/22 16:58:00 EST, Solution, [facility] #[id number], Partial fill upon patientrequest if the prescription [...] 11/05/22 17:53:00 EST, Route to Pharmacy Electronically, [facility] #[id number], Partial fill upon patient request if the prescription is for a schedule II opi... Start Date: 11/05/22 Stop Date: 11/10/22 Status: Ordered gabapentin 300 mg oral capsule 300 mg, 1, capsule, By Mouth, 2 times a day, PRN, # 20 capsule, Refills 0, Tot. Refills 0, Maintenance, Pain , Severe, 11/05/22 17:53:00 EST, Route to Pharmacy Electronically, [facility] #[id number], Partial fill upon patient request if the presc... Start Date: 11/05/22 Stop Date: 11/15/22 Status: Ordered hydrALAZINE 25 mg oral tablet 25 mg, 1, tablet, By Mouth, 3 times a day, discontinue hydralazine 10mg, # 90 tablet, Refills 11, Tot. Refills 11, Maintenance, 06/18/22 13:56:00 EDT, Route to Pharmacy Electronically, [facility] #[id number], Partial fill upon patient request if... Start [...] tablet, 11 Refills, Maintenance, 09/30/22 12:56:00 EST, [facility] #[id number], 163, cm, 09/30/22 11:48:00 EST, Height, 92.8, kg, 09/24/22 22:19:00 EST, Dry Weight Start Date: 09/30/22 Status: Ordered lisinopril 40 mg oral tablet 1 tablet = 40 mg, By Mouth, 2 times a day, increase dose discontinue HCTZ 12.5mg, # 60 tablet, 11 Refills, Maintenance, 09/30/22 12:54:00 EST, Tablet, [facility] #[id number], 163, cm, 09/30/22 11:48:00 EST, Height, 92.8, kg, 09/24/22 22:19:00... Start Date: 09/30/22 Stop Date: 09/25/23 Status: Ordered Matzim LA 360 mg/24 hours oral tablet, extended release 1 tablet, By Mouth, Daily, # 90 tablet, 3 Refills, 02/17/22 13:08:00 EDT, [facility] #[id number], 165, cm, 02/17/22 12:49:00 EDT, Height, 88.9, kg, 02/09/22 15:14:00 EDT, Dry Weight Start Date: 02/17/22 Status: Ordered metFORMIN 500 mg oral tablet, extended release 1 tablet = 500 mg, By Mouth, Daily in AM, discontinue metformin 500mg with meal, # 30 tablet, 11 Refills, Maintenance, 09/30/22 12:51:00 EST, ER Tablet, [facility] #[id number], 163, cm, 09/30/2310:48:00 EST, Height, 92.8, kg, 09/24/22 22:1... Start Date: 09/30/22 Status: Ordered mirtazapine 15 mg oral tablet 0.5 tablet, By Mouth, Daily at bedtime, DECREASED DOSE, # 45 tablet, 1 Refills, Maintenance, 10/20/22 20:06:00 EST, [facility] #[id number], 163, cm, 10/16/22 16:21:00 EST, Height, 92.8, kg, 09/24/22 22:19:00 EST, Dry Weight Start Date: 10/20/22 Status: Ordered montelukast 10 mg oral tablet 1, tablet, By Mouth, Daily at bedtime, SUPPLY., # 90 tablet, Refills 1, Tot. Refills 1, Maintenance, 12/07/22 14:50:00 EDT, Route to Pharmacy Electronically, [facility] #[id number], 163, cm, 11/05/22 16:59:00 EST, Height, 90, kg, 11/05/22 16:59:0... Start Date: 12/07/22 Stop Date: 06/05/23 Status: Ordered Fcq-end-oygyo medical-grade oxford diabetic shoes, depth or hightop Uvv-duj-yetqn medical-grade oxford diabetic shoes, depth or hightop, [...] Refills, Maintenance, 12/07/22 14:49:00 EDT, EC Capsule, [facility] #[id number], 163, cm, 11/05/22 16:59:00 EST,... Start Date: 12/07/22 Status: Ordered pravastatin 80 mg oral tablet 1 tablet, By Mouth, Daily, # 90 tablet, 1 Refills, Maintenance, 12/07/22 14:47:00 EDT, [facility] #[id number], 163, cm, 11/05/22 16:59:00 EST, Height, 90, kg, 11/05/22 16:59:00 EST, Dry Weight Start Date: 12/07/22 Status: Ordered Premarin Vaginal 0.625 mg/gm cream with applicator See Instructions, APPLY 1/2 GRAM IN THE VAGINA EVERY WEDNESDAY AND WEDNESDAY, # 30 Gm, 11 Refills, Maintenance, 05/11/22 14:58:00 EDT, [facility] #[id number], 30, APPLY 1/2 GRAM IN THE VAGINA EVERY WEDNESDAY AND WEDNESDAY, 165, cm, 02/23/22 14:24:00 EDT,... Start Date: 05/11/22 Status: Ordered ProAir HFA 90 mcg/inh inhalation aerosol with adapter 2, puffs, Inhalation, 4 times a day, PRN, # 1 each, Refills 11, Tot. Refills 11, Maintenance, 10/16/22 17:00:00 EST, Route to Pharmacy Electronically, [id number], [facility] #[id number], 163, cm, 10/16/22 16:21:00 EST, H... Start [...] day, PRN itching Apply to lower extremities Montenegrin, # 30 Gm, 0Refills, Maintenance, 01/07/23 14:27:00 EDT, [facility], Partial fill upon patient request if the [...] 4, 5, 6, 7 Confirmed 08/09/06 Active *[id number] Design Manager Francis Malinarnacion Confirmed Active Severe obesity (BMI [...] Team Personnel Name: Haley Gonzalez RN Position: [facility] RN Member Role: Primary Care Nurse Name: Marychuy MCCLAIN, Jessica Position: [facility] Physician - Primary Care Member Role: PCP Address: Address: [address] [place] [address]- Care Team Related Persons Name: SANDY BOYCE Address: home [address] [place] [address] Name: COLT BOYCE Address: home [address] [place] [address]
--- OUTSIDE RECORDS SUMMARY | 2024-07-06 12:03 | XMS_ITS | Continuity of Care Document ---
Author Organization [facility] Address [address] [place] [address]- Care Team Providers Care Cellar Supervisor Name Role Phone Marychuy MCCLAIN, Jessica Primary Care Physician [facility]counter [facility] Date(s): 12/07/22 - 01/06/23 [facility]/[place] [address]- [place] Allergies, Adverse Reactions, Alerts Substance Reaction [...] Vaccine Date Status Refusal Reason SARS-CoV-2 mRNA ([id number]) vax 02/17/22 Given influenza virus vaccine, inactivated [...] tablet, 11 Refills, Maintenance, 05/13/22 11:27:00 EDT, [facility] #[id number], Partial fill upon cherelle... Start Date: 05/13/22 Status: Ordered albuterol 0.083% inhalation solution 3 mL = 2.5 mg, Inhalation, Every 6 hours, # 25 each, 5 Refills, Maintenance, 08/12/22 15:02:00 EST,[facility] #[id number], 165, cm, 06/18/22 13:19:00 EDT, Height, 88.9, kg, 02/09/22 15:14:00 EDT, Dry Weight Start Date: 08/12/22 Stop Date: 02/08/23 Status: Ordered apixaban 5 mg oral tablet 1 tablet = 5 mg, By Mouth, 2 times a day, # 180 tablet, 0 Refills, Maintenance, 12/16/22 16:34:00 EDT, Tablet, [facility] #[id number], Partial fill upon patient request if the prescription is for a schedule II opioid drug., 163, cm, 12/16/22 7:58... Start Date: 12/16/22 Stop Date: 03/16/23 Status: Ordered budesonide 0.5 mg/2 mL inhalation suspension 0.5 mg, 2, mL, Neb, 2 times a day, # 120 mL, Refills 11, Tot. Refills 11, Maintenance, 10/16/22 16:58:00 EST, Suspension, Route to Pharmacy Electronically, [id number], [facility] #[id number], 163, cm, 10/16/22 16:21:00 E... Start Date: 10/16/22 Status: Ordered budesonide 0.5 mg/2 mL inhalation suspension 0.5 mg, 2, mL, Neb, 2 times a day, # 120 mL, Refills 11, Tot. Refills 11, Maintenance, 08/13/22 15:24:00 EST, Suspension, Route to Pharmacy Electronically, [id number], [facility] #[id number], 165, cm, 06/18/22 13:19:00 E... Start Date: 08/13/22 Status: Ordered calcium (as citrate)-vitamin D 315 mg-250 intl units oral tablet 2 tablet, By Mouth, 2 times a day, # 360 tablet, 0 Refills, Maintenance, 12/07/22 14:46:00 EDT, [facility] #[id number], 90, 2 tablet By Mouth 2 times a day, 163, cm, 11/05/22 16:59:00 EST, Height, 90, kg, 11/05/22 16:59:00 EST, Dry Weight Start Date: 12/07/22 Status: Ordered citalopram 20 mg oral tablet 20 mg, 1, tablet, By Mouth, Daily, # 90 tablet, Refills 3, Tot. Refills 3, Maintenance, 07/08/22 14:31:00 EDT, Route to Pharmacy Electronically, [facility] #[id number], is awared of interaction w nicky, 165, cm, 06/18/22 13:19:00 EDT, He... Start Date: 07/08/22 Status: Ordered Clarinex 5 mg oral tablet 1 tablet = 5 mg, By Mouth, Daily, # 90 tablet, 3 Refills, Maintenance, 04/29/22 12:53:00 EDT, Tablet, [facility] #[id number], 165, cm, 02/23/22 14:24:00 EDT, Height, 88.9, [...] 0 Refills, Soft Stop, 10/22/21 10:11:00 EST, [facility] #[id number], 165, cm, 10/22/21 9:05:00 EST, Height, 89.5, kg, 04/23/2121:43:00 EDT, Dry Weight Start Date: 10/22/21 Status: Ordered fluticasone 50 mcg/inh nasal spray See Instructions, SPRAY 2 TIMES IN EACH NOSTRILS EVERY DAY. NEEDED FOR ALLERGY SEASON. WHEN SPRAYING KEEP HEAD DOWN, # 16 Gm, 11 Refills, 02/17/22 13:14:00 EDT, [facility] #[id number], 30, SPRAY 2 TIMES IN EACH NOSTRILS EVERY DAY. NEEDED FO... Start Date: 02/17/22 Status: Ordered formoterol 10 mcg/mL inhalation solution 2 mL = 20 mcg, Inhalation, 2 times a day, using a continuous flow nebulizer, # 120 mL, 11 Refills, Maintenance, 10/16/22 16:58:00 EST, Solution, [facility] #[id number], Partial fill upon patientrequest if the prescription [...] 11/05/22 17:53:00 EST, Route to Pharmacy Electronically, [facility] #[id number], Partial fill upon patient request if the prescription is for a schedule II opi... Start Date: 11/05/22 Stop Date: 11/10/22 Status: Ordered gabapentin 300 mg oral capsule 300 mg, 1, capsule, By Mouth, 2 times a day, PRN, # 20 capsule, Refills 0, Tot. Refills 0, Maintenance, Pain , Severe, 11/05/22 17:53:00 EST, Route to Pharmacy Electronically, [facility] #[id number], Partial fill upon patient request if the presc... Start Date: 11/05/22 Stop Date: 11/15/22 Status: Ordered hydrALAZINE 25 mg oral tablet 25 mg, 1, tablet, By Mouth, 3 times a day, discontinue hydralazine 10mg, # 90 tablet, Refills 11, Tot. Refills 11, Maintenance, 06/18/22 13:56:00 EDT, Route to Pharmacy Electronically, [facility] #[id number], Partial fill upon patient request if... Start Date: 06/18/22 Status: Ordered hydrALAZINE 50 mg oral tablet 1 tablet = 50 mg, By Mouth, 2 times a day, # 60 tablet, 0 Refills, Maintenance, 10/16/22 16:25:00 EST, Tablet, Partial fill upon patient request if the prescription is for a schedule II opioid drug. Start Date: 10/16/22 Status: Ordered hydrocortisone 1% topical cream 1 application, Topically, 2 times a day, # 1 Gm, 0 Refills, Acute 01/16/23 14:39:00 EDT, 12/28/22 14:38:00 EDT, Cream, [facility] #[id number], Partial fill upon patient request if the prescription is for a schedule II opioid drug., 1 application... Start Date: 12/28/22 Stop Date: 01/16/23 Status: Ordered levothyroxine 0.05 mg oral tablet 1 tablet, By Mouth, Daily, # 30 tablet, 11 Refills, Maintenance, 09/30/22 12:56:00 EST, [facility] #[id number], 163, cm, 09/30/22 11:48:00 EST, Height, 92.8, kg, 09/24/22 22:19:00 EST, Dry Weight Start Date: 09/30/22 Status: Ordered lisinopril 40 mg oral tablet 1 tablet = 40 mg, By Mouth, 2 times a day, increase dose discontinue HCTZ 12.5mg, # 60 tablet, 11 Refills, Maintenance, 09/30/22 12:54:00 EST, Tablet, [facility] #[id number], 163, cm, 09/30/22 11:48:00 EST, Height, 92.8, kg, 09/24/22 22:19:00... Start Date: 09/30/22 Stop Date: 09/25/23 Status: Ordered Matzim LA 360 mg/24 hours oral tablet, extended release 1 tablet, By Mouth, Daily, # 90 tablet, 3 Refills, 02/17/22 13:08:00 EDT, [facility] #[id number], 165, cm, 02/17/22 12:49:00 EDT, Height, 88.9, kg, 02/09/22 15:14:00 EDT, Dry Weight Start Date: 02/17/22 Status: Ordered metFORMIN 500 mg oral tablet, extended release 1 tablet = 500 mg, By Mouth, Daily in AM, discontinue metformin 500mg with meal, # 30 tablet, 11 Refills, Maintenance, 09/30/22 12:51:00 EST, ER Tablet, [facility] #[id number], 163, cm, 09/30/2310:48:00 EST, Height, 92.8, kg, 09/24/22 22:1... Start Date: 09/30/22 Status: Ordered mirtazapine 15 mg oral tablet 0.5 tablet, By Mouth, Daily at bedtime, DECREASED DOSE, # 45 tablet, 1 Refills, Maintenance, 10/20/22 20:06:00 EST, [facility] #[id number], 163, cm, 10/16/22 16:21:00 EST, Height, 92.8, kg, 09/24/22 22:19:00 EST, Dry Weight Start Date: 10/20/22 Status: Ordered montelukast 10 mg oral tablet 1, tablet, By Mouth, Daily at bedtime, SUPPLY., # 90 tablet, Refills 1, Tot. Refills 1, Maintenance, 12/07/22 14:50:00 EDT, Route to Pharmacy Electronically, [facility] #[id number], 163, cm, 11/05/22 16:59:00 EST, Height, 90, kg, 11/05/22 16:59:0... Start Date: 12/07/22 Stop Date: 06/05/23 Status: Ordered Ers-dhx-xtmxw medical-grade oxford diabetic shoes, depth or hightop Qxo-alz-lwxjz medical-grade oxford diabetic shoes, depth or hightop, [...] Refills, Maintenance, 12/07/22 14:49:00 EDT, EC Capsule, [facility] #[id number], 163, cm, 11/05/22 16:59:00 EST,... Start Date: 12/07/22 Status: Ordered pravastatin 80 mg oral tablet 1 tablet, By Mouth, Daily, # 90 tablet, 1 Refills, Maintenance, 12/07/22 14:47:00 EDT, [facility] #[id number], 163, cm, 11/05/22 16:59:00 EST, Height, 90, kg, 11/05/22 16:59:00 EST, Dry Weight Start Date: 12/07/22 Status: Ordered Premarin Vaginal 0.625 mg/gm cream with applicator See Instructions, APPLY 1/2 GRAM IN THE VAGINA EVERY WEDNESDAY AND WEDNESDAY, # 30 Gm, 11 Refills, Maintenance, 05/11/22 14:58:00 EDT, [facility] #[id number], 30, APPLY 1/2 GRAM IN THE VAGINA EVERY WEDNESDAY AND WEDNESDAY, 165, cm, 02/23/22 14:24:00 EDT,... Start Date: 05/11/22 Status: Ordered ProAir HFA 90 mcg/inh inhalation aerosol with adapter 2, puffs, Inhalation, 4 times a day, PRN, # 1 each, Refills 11, Tot. Refills 11, Maintenance, 10/16/22 17:00:00 EST, Route to Pharmacy Electronically, [id number], [facility] #[id number], 163, cm, 10/16/22 16:21:00 EST, H... Start [...] 4, 5, 6, 7 Confirmed 08/09/06 Active [id number] Fraternity Adviser Yee Ceballos Confirmed Active Varicose vein Confirmed [...] Team Personnel Name: Haley Gonzalez RN Position: [facility] RN Member Role: Primary Care Nurse Name: Jessica Perrin MD Position: [facility] Primary Care Physician Member Role: PCP Address: Address: [address] [place] [address]- Care Team Related Persons Name: SANDY BOYCE Address: home [address] [place] [address] Name: COLT BOYCE Address: [place] [address] [place] [address]
--- OUTSIDE RECORDS SUMMARY | 2024-07-06 12:03 | XMS_ITS | Continuity of Care Document ---
Author Organization [facility] Address [address] [place] [address]- Care Team Providers Care Obiee Architect Name Role Phone Marychuy MCCLAIN, Jessica Primary Care Physician [facility]counter [facility] Date(s): 02/19/23 - 03/21/23 [facility] [address]- [place] Allergies, Adverse Reactions, Alerts Substance Reaction [...] Status Refusal Reason influenza virus vaccine, inactivated 07/28/22 Brian rded [...] virus vaccine, inactivated 5 07/29/06 Gi javon [id number] 12y+ bivalent booster vax 07/28/22 Recorded SARS-CoV-2 mRNA (xkcxixy-joph-wwcyr) vax 02/17/22 Given SARS-CoV-2 (COVID-19) mRNA BNT-162b2 [...] tablet, 11 Refills, Maintenance, 05/13/22 11:27:00 EDT, [facility] #[id number], Partial fill upon cherelle... Start Date: 05/13/22 Status: Ordered albuterol 0.083% inhalation solution 3 mL = 2.5 mg, Inhalation, Every 6 hours, # 25 each, 5 Refills, Maintenance, 08/12/22 15:02:00 EST,[facility] #[id number], 165, cm, 06/18/22 13:19:00 EDT, Height, 88.9, kg, 02/09/22 15:14:00 EDT, Dry Weight Start Date: 08/12/22 Stop Date: 02/08/23 Status: Ordered budesonide 0.5 mg/2 mL inhalation suspension 0.5 mg, 2, mL, Neb, 2 times a day, # 120 mL, Refills 11, Tot. Refills 11, Maintenance, 10/16/22 16:58:00 EST, Suspension, Route to Pharmacy Electronically, [id number], [facility] #[id number], 163, cm, 10/16/22 16:21:00 E... Start Date: 10/16/22 Status: Ordered budesonide 0.5 mg/2 mL inhalation suspension 0.5 mg, 2, mL, Neb, 2 times a day, # 120 mL, Refills 11, Tot. Refills 11, Maintenance, 08/13/22 15:24:00 EST, Suspension, Route to Pharmacy Electronically, [id number], [facility] #[id number], 165, cm, 06/18/22 13:19:00 E... Start Date: 08/13/22 Status: Ordered calcium (as citrate)-vitamin D 315 mg-250 intl units oral tablet 2 tablet, By Mouth, 2 times a day, # 360 tablet, 0 Refills, Maintenance, 12/07/22 14:46:00 EDT, [facility] #[id number], 90, 2 tablet By Mouth 2 times a day, 163, cm, 11/05/22 16:59:00 EST, Height, 90, kg, 11/05/22 16:59:00 EST, Dry Weight Start Date: 12/07/22 Status: Ordered citalopram 20 mg oral tablet 20 mg, 1, tablet, By Mouth, Daily, # 90 tablet, Refills 3, Tot. Refills 3, Maintenance, 07/08/22 14:31:00 EDT, Route to Pharmacy Electronically, [facility] #[id number], is awared of interaction w nicky, 165, cm, 06/18/22 13:19:00 EDT, He... Start Date: 07/08/22 Status: Ordered Clarinex 5 mg oral tablet 1 tablet = 5 mg, By Mouth, Daily, # 90 tablet, 3 Refills, Maintenance, 04/29/22 12:53:00 EDT, Tablet, [facility] #[id number], 165, cm, 02/23/22 14:24:00 EDT, Height, 88.9, kg, 02/09/22 15:14:00 EDT, Dry Weight Start Date: 04/29/22 Status: Ordered Compression- Lower Extremity (Knee High) See Instructions, # 2 each, Refills 11, Tot. Refills 11, Maintenance, use daily; closed toes; 15-20mmHg. Dx peripheral vascular insufficiency I 87.2, 05/22/22 16:57:00 EDT, Compound Start Date: 05/22/22 Status: Ordered Eliquis 5 mg oral tablet 1 tablet, By Mouth, 2 times a day, # 180 tablet, 0 Refills, Maintenance, 03/15/23 11:47:00 EDT, [facility] #[id number], 160, cm, 02/09/23 16:45:00 EDT, Height, 89.54, kg, 02/09/23 16:45:00 EDT, Dry Weight Start Date: 03/15/23 Status: Ordered EPINEPHrine 0.3 mg injectable solution = 0.3 mg, Intramuscular, Once, PRN Anaphylactic Reaction, # 1 each, 0 Refills, Soft Stop, 10/22/21 10:11:00 EST, [facility] #[id number], 165, cm, 10/22/21 9:05:00 EST, Height, 89.5, kg, 04/23/2121:43:00 EDT, Dry Weight Start Date: 10/22/21 Status: Ordered fluticasone 50 mcg/inh nasal spray See Instructions, INSTILL 2 SPRAYS INTO EACH NOSTRIL EVERY DAY NEEDED FOR ALLERGY SEASON. WHEN SPRAYING KEEP HEAD DOWN, # 16 Gm, 0 Refills, Maintenance, 02/26/23 12:54:00 EDT, [facility]#65510, 30, INSTILL 2 SPRAYS INTO EACH NOSTRIL EVER... Start Date: 02/26/23 Status: Ordered formoterol 10 mcg/mL inhalation solution 2 mL = 20 mcg, Inhalation, 2 times a day, using a continuous flow nebulizer, # 120 mL, 11 Refills, Maintenance, 10/16/22 16:58:00 EST, Solution, [facility] #[id number], Partial fill upon patientrequest if the prescription [...] 11/05/22 17:53:00 EST, Route to Pharmacy Electronically, [facility] #[id number], Partial fill upon patient request if the prescription is for a schedule II opi... Start Date: 11/05/22 Stop Date: 11/10/22 Status: Ordered gabapentin 300 mg oral capsule 300 mg, 1, capsule, By Mouth, 2 times a day, PRN, # 20 capsule, Refills 0, Tot. Refills 0, Maintenance, Pain , Severe, 11/05/22 17:53:00 EST, Route to Pharmacy Electronically, [facility] #[id number], Partial fill upon patient request if the presc... Start Date: 11/05/22 Stop Date: 11/15/22 Status: Ordered hydrALAZINE 25 mg oral tablet 25 mg, 1, tablet, By Mouth, 3 times a day, discontinue hydralazine 10mg, # 90 tablet, Refills 11, Tot. Refills 11, Maintenance, 06/18/22 13:56:00 EDT, Route to Pharmacy Electronically, [facility] #[id number], Partial fill upon patient request if... Start [...] tablet, 11 Refills, Maintenance, 09/30/22 12:56:00 EST, [facility] #[id number], 163, cm, 09/30/22 11:48:00 EST, Height, 92.8, kg, 09/24/22 22:19:00 EST, Dry Weight Start Date: 09/30/22 Status: Ordered lisinopril 40 mg oral tablet 1 tablet = 40 mg, By Mouth, 2 times a day, increase dose discontinue HCTZ 12.5mg, # 60 tablet, 11 Refills, Maintenance, 09/30/22 12:54:00 EST, Tablet, [facility] #[id number], 163, cm, 09/30/22 11:48:00 EST, Height, 92.8, kg, 09/24/22 22:19:00... Start Date: 09/30/22 Stop Date: 09/25/23 Status: Ordered Matzim LA 360 mg/24 hours oral tablet, extended release See Instructions, TAKE 1 TABLET BY MOUTH DAILY, # 90 tablet, 0 Refills, Maintenance, 03/09/23 14:37:00 EDT, [facility] #[id number], 160, cm, 02/09/23 16:45:00 EDT, Height, 89.54, kg, 02/09/23 16:45:00 EDT, Dry Weight Start Date: 03/09/23 Status: Ordered Matzim LA 360 mg/24 hours oral tablet, extended release 1 tablet, By Mouth, Daily, # 90 tablet, 3 Refills, 02/17/22 13:08:00 EDT, [facility] #[id number], 165, cm, 02/17/22 12:49:00 EDT, Height, 88.9, kg, 02/09/22 15:14:00 EDT, Dry Weight Start Date: 02/17/22 Status: Ordered metFORMIN 500 mg oral tablet, extended release 1 tablet = 500 mg, By Mouth, Daily in AM, discontinue metformin 500mg with meal, # 30 tablet, 11 Refills, Maintenance, 09/30/22 12:51:00 EST, ER Tablet, [facility] #[id number], 163, cm, 09/30/2310:48:00 EST, Height, 92.8, kg, 09/24/22 22:1... Start Date: 09/30/22 Status: Ordered mirtazapine 15 mg oral tablet 0.5 tablet, By Mouth, Daily at bedtime, DECREASED DOSE, # 45 tablet, 1 Refills, Maintenance, 10/20/22 20:06:00 EST, [facility] #[id number], 163, cm, 10/16/22 16:21:00 EST, Height, 92.8, kg, 09/24/22 22:19:00 EST, Dry Weight Start Date: 10/20/22 Status: Ordered montelukast 10 mg oral tablet 1, tablet, By Mouth, Daily at bedtime, SUPPLY., # 90 tablet, Refills 1, Tot. Refills 1, Maintenance, 12/07/22 14:50:00 EDT, Route to Pharmacy Electronically, [facility] #[id number], 163, cm, 11/05/22 16:59:00 EST, Height, 90, kg, 11/05/22 16:59:0... Start Date: 12/07/22 Stop Date: 06/05/23 Status: Ordered Jql-zja-uktje medical-grade oxford diabetic shoes, depth or hightop Adh-jfq-bhblz medical-grade oxford diabetic shoes, depth or hightop, See Instructions, # 1 each, Refills 0, Tot. 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 Start Date: 05/13/22 Status: Ordered omeprazole 20 mg oral enteric coated capsule See Instructions, TAKE 1 CAPSULE BY MOUTH DAILY TAKE 30 MINUTES BEFORE BREAKFAST; MEDICAL DOCTOR ISAWARED OF INTERACTION WITH CITALOPRAM, # 30 capsule, 5 Refills, Maintenance, 03/05/23 9:04:00 EDT, [facility] #48911, 160, cm, 02/09/23 16:45... Start Date: 03/05/23 Status: Ordered pravastatin 80 mg oral tablet 1 tablet, By Mouth, Daily, # 90 tablet, 1 Refills, Maintenance, 12/07/22 14:47:00 EDT, [facility] #08534, 163, cm, 11/05/22 16:59:00 EST, Height, 90, kg, 11/05/22 16:59:00 EST, Dry Weight Start Date: 12/07/22 Status: Ordered Premarin Vaginal 0.625 mg/gm cream with applicator See Instructions, APPLY 1/2 GRAM IN THE VAGINA EVERY WEDNESDAY AND WEDNESDAY, # 30 Gm, 11 Refills, Maintenance, 05/11/22 14:58:00 EDT, [facility] #77419, 30, APPLY 1/2 GRAM IN THE VAGINA EVERY WEDNESDAY AND WEDNESDAY, 165, cm, 02/23/22 14:24:00 EDT,... Start Date: 05/11/22 Status: Ordered ProAir HFA 90 mcg/inh inhalation aerosol with adapter 2, puffs, Inhalation, 4 times a day, PRN, # 1 each, Refills 11, Tot. Refills 11, Maintenance, 10/16/22 17:00:00 EST, Route to Pharmacy Electronically, [id number], [facility] #[id number], 163, cm, 10/16/22 16:21:00 EST, H... Start [...] day, PRN itching Apply to lower extremities Vietnamese, # 30 Gm, 0Refills, Maintenance, 01/07/23 14:27:00 EDT, [facility], Partial fill upon patient request if [...] 4, 5, 6, 7 Confirmed 08/09/06 Active *[phone] Color Mixer Francis Malinarnacion Confirmed Active Varicose vein Confirmed Active 1Mild [...] Team Personnel Name: Haley Gonzalez RN Position: [facility] RN Member Role: Primary Care Nurse Name: Jessica Perrin MD Position: [facility] Physician - Primary Care Member Role: PCP Address: Address: [address] [place] [address]- Care Team Related Persons Name: BOYCESANDY JORDAN Address: home [address] [place] [address] Name: COLT BOYCE Address: [address] [place] [address]
--- OUTSIDE RECORDS SUMMARY | 2024-07-06 12:03 | XMS_ITS | Continuity of Care Document ---
Author Organization [facility] Address [address] [place] [address]- Care Team Providers Care Service Center Manager Name Role Phone Marychuy MCCLAIN, Jessica Primary Care Physician [facility] Date[facility]s): 08/05/23 - 09/04/23 [facility] [address]- [place] Allergies, Adverse Reactions, Alerts Substance Reaction [...] virus vaccine, inactivated 5 07/29/06 Gi javon [id number] 12y+ bivalent booster vax 03/24/23 Given [id number] 12y+ bivalent booster vax 07/28/22 Recorded SARS-CoV-2 mRNA (czphyyc-aspn-vhncx) vax 02/17/22 Given SARS-CoV-2 (COVID-19) mRNA BNT-162b2 [...] anaphylaxis and local reaction, and risks ofvaccine. VILAM 4Admin Note: 03/12/2009 given 5Admin Note: vis..03/12/06 [...] tablet, 11 Refills, Maintenance, 03/24/23 10:28:00 EDT, [facility] #[id number], 160, cm, 03/24/23 10:19:00 EDT, Height, 89.54, kg, 0... Start Date: 03/24/23 Status: Ordered albuterol 0.083% inhalation solution 3 mL = 2.5 mg, Inhalation, Every 6 hours, # 25 each, 5 Refills, Maintenance, 08/12/22 15:02:00 EST,[facility] #[id number], 165, cm, 06/18/22 13:19:00 EDT, Height, 88.9, [...] 10:50:00 EST, Suspension, Route to Pharmacy Electronically, [id number], [facility] #[id number], 160, cm, 03/24/23 10:... Start Date: 08/12/23 Status: Ordered calcium (as citrate)-vitamin D 315 mg-250 intl units oral tablet 2 tablet, By Mouth, 2 times a day, # 360 tablet, 3 Refills, Maintenance, 03/24/23 10:33:00 EDT, [facility] #[id number], 2 tablet By Mouth 2 times a day,x90 days, 160, cm, 03/24/23 10:19:00 EDT, Height, 89.54, kg, 02/09/23 16:45:00 EDT, Dry Weight Start Date: 03/24/23 Stop Date: 03/18/24 Status: Ordered ciclopirox 8% topical solution 1 application, Topically, Daily, as directed to affected area toenails, # 6.6 mL, 11 Refills, Maintenance, 03/24/23 10:42:00 EDT, Solution, [facility] #[id number], ., 1 application Topically Daily,Instr:as directed; to affected area toenails, 16... Start Date: 03/24/23 Status: Ordered citalopram 20 mg oral tablet 20 mg, 1, tablet, By Mouth, Daily, # 90 tablet, Refills 3, Tot. Refills 3, Maintenance, 03/24/23 10:23:00 EDT, Route to Pharmacy Electronically, [facility] #[id number], is awared of interaction w [email or web address], 160, cm, 03/24/23 10:19:00 EDT, He... Start Date: 03/24/23 Status: Ordered Clarinex 5 mg oral tablet 1 tablet = 5 mg, By Mouth, Daily, # 90 tablet, 3 Refills, Maintenance, 03/24/23 10:23:00 EDT, Tablet, [facility] #[id number], 160, cm, 03/24/23 10:19:00 EDT, Height, 89.54, [...] tablet, 3 Refills, Maintenance, 03/24/23 10:04:00 EDT, [facility] #[id number], 160, cm, 03/24/23 9:26:00 EDT, Height, 89.54, kg, 02/09/23 16:45:00 EDT, Dry Weight Start Date: 03/24/23 Status: Ordered EPINEPHrine 0.3 mg injectable solution = 0.3 mg, Intramuscular, Once, PRN Anaphylactic Reaction, # 1 each, 0 Refills, Soft Stop, 10/22/21 10:11:00 EST, [facility] #[id number], 165, cm, 10/22/21 9:05:00 EST, Height, 89.5, kg, 04/23/2121:43:00 EDT, Dry Weight Start Date: 10/22/21 Status: Ordered fluticasone 50 mcg/inh nasal spray 2 sprays, Nares, Both, Daily, Use every day during allergy season. While using spray keep head down., # 3 each, 3 Refills, Maintenance, 03/24/23 10:28:00 EDT, [facility] #[id number], ., 2 spraysNares, Both Daily,x90 days,Instr:Use every day duri... Start Date: 03/24/23 Stop Date: 03/18/24 Status: Ordered formoterol 10 mcg/mL inhalation solution 2 mL = 20 mcg, Inhalation, 2 times a day, using a continuous flow nebulizer, # 120 mL, 11 Refills, Maintenance, 10/16/22 16:58:00 EST, Solution, [facility] #[id number], Partial fill upon patientrequest if the prescription [...] tablet, 3 Refills, Maintenance, 03/24/23 10:31:00 EDT, [facility] #[id number], 160, cm, 03/24/23 10:19:00 EDT, Height, 89.54, kg, 02/09/23 16:45:00 EDT, Dry Weight Start Date: 03/24/23 Stop Date: 03/18/24 Status: Ordered lisinopril 40 mg oral tablet 1 tablet = 40 mg, By Mouth, Daily in AM, 11 AM Decreased dose, # 90 tablet, 3 Refills, Maintenance,03/24/23 10:12:00 EDT, Tablet, [facility] #[id number], 160, cm, 03/24/23 9:26:00 EDT, Height, 89.54, kg, 02/09/23 16:45:00 EDT, Dry Weight Start Date: 03/24/23 Stop Date: 03/18/24 Status: Ordered Matzim LA 180 mg/24 hours oral tablet, extended release 1 tablet = 180 mg, By Mouth, Daily in AM, Discontinue diltiazem 360 mg Takes at 11 AM, # 90 tablet,3 Refills, Maintenance, 03/24/23 9:58:00 EDT, ER Tablet, [facility] #[id number], 160, cm, 03/24/23 9:26:00 EDT, Height, 89.54, kg, 02/09/23 16:45... Start Date: 03/24/23 Stop Date: 03/18/24 Status: Ordered metFORMIN 500 mg oral tablet, extended release 1 tablet = 500 mg, By Mouth, 2 times a day, with meal Increase dose, # 180 tablet, 3 Refills, Maintenance, 03/24/23 10:19:00 EDT, ER Tablet, [facility] #[id number], 160, cm, 03/24/23 10:19:00 EDT, Height, 89.54, kg, 02/09/23 16:45:00 EDT, Dry W... Start Date: 03/24/23 Stop Date: 03/18/24 Status: Ordered mirtazapine 15 mg oral tablet 0.5 tablet, By Mouth, Daily at bedtime, # 45 tablet, 3 Refills, Maintenance, 03/24/23 10:22:00 EDT,[facility] #[id number], 160, cm, 03/24/23 10:19:00 EDT, Height, 89.54, kg, 02/09/23 16:45:00 EDT, Dry Weight Start Date: 03/24/23 Stop Date: 03/18/24 Status: Ordered montelukast 10 mg oral tablet 1, tablet, By Mouth, Daily at bedtime, SUPPLY., # 90 tablet, Refills 3, Tot. Refills 3, Maintenance, 06/05/23 14:50:00 EDT, Route to Pharmacy Electronically, [facility] #[id number], 160, cm, 03/24/23 10:19:00 EDT, Height, 89.54, kg, 02/09/23 16:4... Start Date: 06/05/23 Status: Ordered Qjw-myz-xtvps medical-grade oxford diabetic shoes, depth or hightop Qfy-arw-gxegq medical-grade oxford diabetic shoes, depth or hightop, [...] capsule, 3 Refills, Maintenance, 03/24/23 10:28:00 EDT, [facility] #[id number], 160, cm, 03/24/23 10:19:00 EDT, Height, 89.54, kg, 0... Start Date: 03/24/23 Stop Date: 03/18/24 Status: Ordered pravastatin 80 mg oral tablet 1 tablet, By Mouth, Daily, # 90 tablet, 3 Refills, Maintenance, 03/24/23 10:32:00 EDT, [facility] #[id number], 160, cm, 03/24/23 10:19:00 EDT, Height, 89.54, kg, 02/09/23 16:45:00 EDT, Dry Weight Start Date: 03/24/23 Stop Date: 03/18/24 Status: Ordered Premarin Vaginal 0.625 mg/gm cream with applicator See Instructions, APPLY 1/2 GRAM IN THE VAGINA EVERY WEDNESDAY AND WEDNESDAY, # 30 Gm, 11 Refills, Maintenance, 03/24/23 10:23:00 EDT, [facility] #[id number], 30, APPLY 1/2 GRAM IN THE VAGINA EVERY WEDNESDAY AND WEDNESDAY, 160, cm, 03/24/23 10:19:00 EDT,... Start Date: 03/24/23 Status: Ordered ProAir HFA 90 mcg/inh inhalation aerosol with adapter 2, puffs, Inhalation, 4 times a day, PRN, Fill when patient request it, # 1 each, Refills 5, Tot. Refills 5, Maintenance, 03/24/23 10:30:00 EDT, Route to Pharmacy Electronically, [id number], [facility] #[id number], 160,... Start Date: 03/24/23 Status: Ordered Shoes [...] in AM, at 11 AM Given by multi needle machine operator, Dr. Indio Mason, # 30 tablet, Refills [...] day, PRN itching Apply to lower extremities Angolan, # 30 Gm, 2Refills, Maintenance, 03/24/23 10:34:00 EDT, [facility] #[id number], 1 application Topically 3times a day,Instr:PRN itching [...] 5, 6, 7, 8 Confirmed 08/09/06 Active [id number] Branch Operations Coordinator Yee Velásqueznte Confirmed Active Varicose vein Confirmed Active 1occlusive [...] Team Personnel Name: Carlos PAREDES, Haley Position: [facility] RN Member Role: Primary Care Nurse Name: Marychuy MCCLAIN, Jessica Position: [facility] Physician - Primary Care Member Role: PCP Address: Address: [address] [place] [address]- Care Team Related Persons Name: SANDY BOYCE Address: [address] [place] [address] Name: COLT BOYCE Address: home [address] [place] [address]
--- OUTSIDE RECORDS SUMMARY | 2024-07-06 12:03 | XMS_ITS | Continuity of Care Document ---
Author Organization [facility] Address [address] [place] [id number]- Care Team Providers Care Sheriffs Detective Name Role Phone Marychuy MCCLAIN, Jessica Primary Care Physician [facility]counter [facility] Date(s): 12/22/23 - 01/21/24 [facility]/[address] [address]- Allergies, Adverse Reactions, Alerts Substance Reaction Severity [...] virus vaccine, inactivated 5 07/29/06 Gi javon [id number] 12y+ bivalent booster vax 03/24/23 Given [id number] 12y+ bivalent booster vax 07/28/22 Recorded SARS-CoV-2 mRNA ([id number]-mboxp) vax 02/17/22 Given SARS-CoV-2 (COVID-19) mRNA BNT-162b2 [...] Refills, Maintenance, 01/19/24 8:32:00 EDT, ER Tablet, [facility] #[id number], Partial fill upon patient request if th... Start Date: 01/19/24 Status: Ordered Albuterol (Eqv-ProAir HFA) 90 mcg/inh inhalation aerosol 2 puffs, Inhalation, Every 6 hours, PRN Wheezing/Shortness of Breath, # 8.5 Gm, 5 Refills, Maintenance, 01/19/24 8:30:00 EDT, [facility] #[id number], If pump is not covered, it can [...] 01/19/24 8:40:00 EDT, Route to Pharmacy Electronically, [id number], [facility] #[id number], 165, cm, 01/19/24 7:55:00 EDT, Height, 85.... Start Date: 01/19/24 Status: Ordered calcium (as citrate)-vitamin D 315 mg-250 intl units oral tablet 2 tablet, By Mouth, 2 times a day, # 360 tablet, 3 Refills, Maintenance, 03/18/24 10:33:00 EDT, [facility] #[id number], 2 tablet By Mouth 2 times a [...] Stop 03/18/24 10:33:00 EDT, 03/24/23 10:33:00 EDT, [facility] #[id number], 160, cm, 03/24/23 10:19:00 EDT, Height, 89.54, kg, 02/09/23 16:45:00 EDT, Dry Weight Start Date: 03/24/23 Stop Date: 03/18/24 Status: Ordered ciclopirox 8% topical solution 1 application, Topically, Daily, as directed to affected area toenails, # 6.6 mL, 11 Refills, Maintenance, 01/19/24 9:20:00 EDT, Solution, [facility] #[id number], ., 1 application Topically Daily,Instr:as directed; to affected area toenails, 165... Start Date: 01/19/24 Status: Ordered Clarinex 5 mg oral tablet 1 tablet = 5 mg, By Mouth, Daily, # 90 tablet, 3 Refills, Maintenance, 03/18/24 10:23:00 EDT, Tablet, [facility] #[id number], 165, cm, 01/19/24 7:55:00 EDT, Height, 85.45, kg, 12/23/23 9:04:00 EDT, Dry Weight Start Date: 03/18/24 Stop Date: 03/13/25 Status: Ordered Clarinex 5 mg oral tablet 1 tablet = 5 mg, By Mouth, Daily, for 90 days, # 90 tablet, 3 Refills, Hard Stop 03/18/24 10:23:00 EDT, 03/24/23 10:23:00 EDT, Tablet, [facility] #[id number], 160, cm, 03/24/23 10:19:00 EDT, Height, 89.54, [...] 11 Refills, Maintenance, 01/19/24 8:42:00 EDT, Gel, [facility] #[id number], ., 165, cm, 01/19/24 7:55:00 EDT, Height, 85.45, kg, 12/23/23 9:04:00 EDT,Dry Weight Start Date: 01/19/24 Stop Date: 07/05/24 Status: Ordered Eliquis 5 mg oral tablet 1 tablet, By Mouth, 2 times a day, # 180 tablet, 3 Refills, Maintenance, 01/19/24 9:20:00 EDT, [facility] #[id number], 165, cm, 01/19/24 7:55:00 EDT, Height, 85.45, kg, 12/23/23 9:04:00 EDT, DryWeight Start Date: 01/19/24 Status: Ordered EPINEPHrine 0.3 mg injectable solution = 0.3 mg, Intramuscular, Once, PRN Anaphylactic Reaction, # 1 each, 0 Refills, Soft Stop, 10/22/21 10:11:00 EST, [facility] #[id number], 165, cm, 10/22/21 9:05:00 EST, Height, 89.5, kg, 04/23/2121:43:00 EDT, Dry Weight Start Date: 10/22/21 Status: Ordered escitalopram 10 mg oral tablet 1 tablet = 10 mg, By Mouth, Daily, discontinue citalopram, # 30 tablet, 11 Refills, Maintenance, 01/19/24 8:34:00 EDT, Tablet, [facility] #[id number], Partial fill upon patient request if the prescription is for a schedule II opioid drug., 165, c... Start Date: 01/19/24 Status: Ordered fluticasone 50 mcg/inh nasal spray 2 sprays, Nares, Both, Daily, Use every day during allergy season. While using spray keep head down., # 3 each, 3 Refills, Maintenance, 03/18/24 10:28:00 EDT, [facility] #[id number], ., 2 spraysNares, Both Daily,x90 days,Instr:Use every day duri... Start Date: 03/18/24 Stop Date: 03/13/25 Status: Ordered formoterol 10 mcg/mL inhalation solution See Instructions, USE 2 ML VIA NEBULIZER TWICE DAILY USING A CONTINUOUS FLOW VIA NEBULIZER, # 120 mL, 11 Refills, Maintenance, 01/19/24 8:40:00 EDT, [facility] #[id number], 165, cm, 01/19/24 7:55:00 EDT, Height, 85.45, [...] tablet, 3 Refills, Maintenance, 03/18/24 10:31:00 EDT, [facility] #[id number], 165, cm, 01/19/24 7:55:00 EDT, Height, 85.45, kg, 12/23/23 9:04:00 EDT, Dry Weight Start Date: 03/18/24 Stop Date: 03/13/25 Status: Ordered levothyroxine 0.05 mg oral tablet 1 tablet, By Mouth, Daily, for 90 days, # 90 tablet, 3 Refills, Hard Stop 03/18/24 10:31:00 EDT, 03/24/23 10:31:00 EDT, [facility] #[id number], 160, cm, 03/24/23 10:19:00 EDT, Height, 89.54, kg,02/09/23 16:45:00 EDT, Dry Weight Start Date: 03/24/23 Stop Date: 03/18/24 Status: Ordered lisinopril 40 mg oral tablet 1 tablet = 40 mg, By Mouth, Daily in AM, 11 AM Decreased dose, # 90 tablet, 3 Refills, Maintenance,03/18/24 10:12:00 EDT, Tablet, [facility] #[id number], 165, cm, 01/19/24 7:55:00 EDT, Height, 85.45, kg, 12/23/23 9:04:00 EDT, Dry Weight Start Date: 03/18/24 Stop Date: 03/13/25 Status: Ordered lisinopril 40 mg oral tablet 1 tablet = 40 mg, By Mouth, Daily in AM, for 90 days, 11 AM Decreased dose, # 90 tablet, 3 Refills,Hard Stop 03/18/24 10:12:00 EDT, 03/24/23 10:12:00 EDT, Tablet, [facility] #[id number], 160, cm, 03/24/23 9:26:00 EDT, Height, 89.54, kg, ... Start Date: 03/24/23 Stop Date: 03/18/24 Status: Ordered Matzim LA 180 mg/24 hours oral tablet, extended release 1 tablet = 180 mg, By Mouth, Daily in AM, Take at 11 AM, # 90 tablet, 3 Refills, Maintenance, 03/18/24 9:58:00 EDT, ER Tablet, [facility] #[id number], 165, cm, 01/19/24 7:55:00 EDT, Height, 85.45, [...] 9:58:00 EDT, 03/24/23 9:58:00 EDT, ER Tablet, [facility] #[id number], 160, cm, 03/24/23 9:26:00 EDT, H... Start Date: 03/24/23 Stop Date: 03/18/24 Status: Ordered MetFORMIN (Eqv-Glucophage XR) 500 mg oral tablet, extended release 1 tablet, By Mouth, 2 times a day with meals, INCREASE DOSE, # 180 tablet, 3 Refills, Maintenance, 12/22/23 16:13:00 EDT, [facility] #[id number], 165, cm, 12/20/23 5:43:00 EDT, Height, 84.5, kg,12/19/23 17:15:00 EDT, Dry Weight Start Date: 12/22/23 Status: Ordered metoprolol 25 mg oral tablet, extended release 25 mg, 1, tablet, By Mouth, Daily, # 30 tablet, Refills 11, Tot. Refills 11, Maintenance, 01/19/24 8:40:00 EDT, Route to Pharmacy Electronically, [facility] #[id number], 165, cm, 01/19/24 7:55:00 EDT, Height, 85.45, kg, 12/23/23 9:04:00 EDT, Dry... Start Date: 01/19/24 Status: Ordered mirtazapine 15 mg oral tablet 0.5 tablet, By Mouth, Daily at bedtime, # 45 tablet, 3 Refills, Maintenance, 03/18/24 10:22:00 EDT,[facility] #[id number], 165, cm, 01/19/24 7:55:00 EDT, Height, 85.45, kg, 12/23/23 9:04:00 EDT, Dry Weight Start Date: 03/18/24 Stop Date: 03/13/25 Status: Ordered mirtazapine 15 mg oral tablet 0.5 tablet, By Mouth, Daily at bedtime, for 90 days, # 45 tablet, 3 Refills, Hard Stop 03/18/24 10:22:00 EDT, 03/24/23 10:22:00 EDT, [facility] #[id number], 160, cm, 03/24/23 10:19:00 EDT, Height, 89.54, kg, 02/09/23 16:45:00 EDT, Dry Weight Start Date: 03/24/23 Stop Date: 03/18/24 Status: Ordered montelukast 10 mg oral tablet 1, tablet, By Mouth, Daily at bedtime, SUPPLY., # 90 tablet, Refills 3, Tot. Refills 3, Maintenance, 06/05/23 14:50:00 EDT, Route to Pharmacy Electronically, [facility] #[id number], 160, cm, 03/24/23 10:19:00 EDT, Height, 89.54, kg, 02/09/23 16:4... Start Date: 06/05/23 Status: Ordered Nucala Prefilled Autoinjector 100 mg/mL subcutaneous solution = 100 mg, Subcutaneous Infusion, Every 28 days, j45.40, # 1 each, 11 Refills, Maintenance, 01/12/2414:58:00 EDT, [facility], Partial fill upon patient request if the prescription isfor a schedule II opioid drug., 165, cm, 01/04/24 1... Start Date: 01/13/24 Status: Ordered Zyp-hwc-kzpvr medical-grade oxford diabetic shoes, depth or hightop Ioo-fom-mbdux medical-grade oxford diabetic shoes, depth or hightop, [...] capsule, 3 Refills, Maintenance, 03/18/24 10:28:00 EDT, [facility] #[id number], 165, cm, 01/19/24 7:55:00 EDT, Height, 85.45, kg, 12/23/23 9:04:00 EDT, Dry Weight Start Date: 03/18/24 Stop Date: 03/13/25 Status: Ordered omeprazole 20 mg oral enteric coated capsule 1 capsule = 20 mg, By Mouth, Daily, for 90 days, 30 minutes before breakfast MD is aware of interaction with citalopram, # 90 capsule, 3 Refills, Hard Stop 03/18/24 10:28:00 EDT, 03/24/23 10:28:00 EDT, [facility] #[id number], 160, cm, 03/24/23 1... Start Date: 03/24/23 Stop Date: 03/18/24 Status: Ordered pravastatin 80 mg oral tablet 1 tablet, By Mouth, Daily, # 90 tablet, 3 Refills, Maintenance, 03/24/23 10:32:00 EDT, [facility] #[id number], 160, cm, 03/24/23 10:19:00 EDT, Height, 89.54, kg, 02/09/23 16:45:00 EDT, Dry Weight Start Date: 03/24/23 Stop Date: 03/18/24 Status: Ordered Premarin Vaginal 0.625 mg/gm cream with applicator See Instructions, APPLY 1/2 GRAM IN THE VAGINA EVERY WEDNESDAY AND WEDNESDAY, # 30 Gm, 11 Refills, Maintenance, 01/19/24 9:20:00 EDT, [facility] #[id number], 30, APPLY 1/2 GRAM IN THE VAGINA [...] in AM, at 11 AM Given by center medical director, Dr. Indio Mason, # 30 tablet, Refills [...] 5, 6, 7, 8 Confirmed 08/09/06 Active *[id number] Novelty Dipper Michelle Cain Confirmed Active Varicose vein Confirmed [...] Team Personnel Name: Carlos PAREDES, Haley Position: [facility] RN Member Role: Primary Care Nurse Name: Jessica Perrin MD Position: [facility] Physician - Primary Care Member Role: PCP Address: Address: [address] [place] [address]- Care Team Related Persons Name: CARLI SANDY Address: [address] [place] [address] Name: COLT BOYCE Address: [address] [place] [address]
--- OUTSIDE RECORDS SUMMARY | 2024-07-06 12:04 | XMS_ITS | Continuity of Care Document ---
Author Organization [facility] Address [address] [place] [id number]- Care Team Providers Care Oven Laborer Name Role Phone Marychuy MCCLAIN, Jessica Primary Care Physician [facility]counter [facility] Date(s): 12/21/23 - 01/20/24 [facility]/[address] [address]- Allergies, Adverse Reactions, Alerts Substance Reaction Severity [...] virus vaccine, inactivated 5 07/29/06 Gi javon [id number] 12y+ bivalent booster vax 03/24/23 Given [id number] 12y+ bivalent booster vax 07/28/22 Recorded SARS-CoV-2 mRNA (dtscfmw-xsdh-klqof) vax 02/17/22 Given SARS-CoV-2 (COVID-19) mRNA BNT-162b2 [...] Refills, Maintenance, 01/19/24 8:32:00 EDT, ER Tablet, [facility] #[id number], Partial fill upon patient request if th... Start Date: 01/19/24 Status: Ordered Albuterol (Eqv-ProAir HFA) 90 mcg/inh inhalation aerosol 2 puffs, Inhalation, Every 6 hours, PRN Wheezing/Shortness of Breath, # 8.5 Gm, 5 Refills, Maintenance, 01/19/24 8:30:00 EDT, [email or web address] #[id number], If pump is not covered, it can [...] 01/19/24 8:40:00 EDT, Route to Pharmacy Electronically, [id number], [email or web address] #[id number], 165, cm, 01/19/24 7:55:00 EDT, Height, 85.... Start Date: 01/19/24 Status: Ordered calcium (as citrate)-vitamin D 315 mg-250 intl units oral tablet 2 tablet, By Mouth, 2 times a day, # 360 tablet, 3 Refills, Maintenance, 03/18/24 10:33:00 EDT, [email or web address] #[id number], 2 tablet By Mouth 2 times a [...] Stop 03/18/24 10:33:00 EDT, 03/24/23 10:33:00 EDT, [email or web address] #[id number], 160, cm, 03/24/23 10:19:00 EDT, Height, 89.54, kg, 02/09/23 16:45:00 EDT, Dry Weight Start Date: 03/24/23 Stop Date: 03/18/24 Status: Ordered ciclopirox 8% topical solution 1 application, Topically, Daily, as directed to affected area toenails, # 6.6 mL, 11 Refills, Maintenance, 01/19/24 9:20:00 EDT, Solution, [email or web address] #[id number], ., 1 application Topically Daily,Instr:as directed; to affected area toenails, 165... Start Date: 01/19/24 Status: Ordered Clarinex 5 mg oral tablet 1 tablet = 5 mg, By Mouth, Daily, # 90 tablet, 3 Refills, Maintenance, 03/18/24 10:23:00 EDT, Tablet, [facility] #[id number], 165, cm, 01/19/24 7:55:00 EDT, Height, 85.45, kg, 12/23/23 9:04:00 EDT, Dry Weight Start Date: 03/18/24 Stop Date: 03/13/25 Status: Ordered Clarinex 5 mg oral tablet 1 tablet = 5 mg, By Mouth, Daily, for 90 days, # 90 tablet, 3 Refills, Hard Stop 03/18/24 10:23:00 EDT, 03/24/23 10:23:00 EDT, Tablet, [facility] #[id number], 160, cm, 03/24/23 10:19:00 EDT, Height, 89.54, [...] 11 Refills, Maintenance, 01/19/24 8:42:00 EDT, Gel, [facility] #[id number], ., 165, cm, 01/19/24 7:55:00 EDT, Height, 85.45, kg, 12/23/23 9:04:00 EDT,Dry Weight Start Date: 01/19/24 Stop Date: 07/05/24 Status: Ordered Eliquis 5 mg oral tablet 1 tablet, By Mouth, 2 times a day, # 180 tablet, 3 Refills, Maintenance, 01/19/24 9:20:00 EDT, [email or web address] #[id number], 165, cm, 01/19/24 7:55:00 EDT, Height, 85.45, kg, 12/23/23 9:04:00 EDT, DryWeight Start Date: 01/19/24 Status: Ordered EPINEPHrine 0.3 mg injectable solution = 0.3 mg, Intramuscular, Once, PRN Anaphylactic Reaction, # 1 each, 0 Refills, Soft Stop, 10/22/21 10:11:00 EST, [facility] #[id number], 165, cm, 10/22/21 9:05:00 EST, Height, 89.5, kg, 04/23/2121:43:00 EDT, Dry Weight Start Date: 10/22/21 Status: Ordered escitalopram 10 mg oral tablet 1 tablet = 10 mg, By Mouth, Daily, discontinue citalopram, # 30 tablet, 11 Refills, Maintenance, 01/19/24 8:34:00 EDT, Tablet, [facility] #[id number], Partial fill upon patient request if the prescription is for a schedule II opioid drug., 165, c... Start Date: 01/19/24 Status: Ordered fluticasone 50 mcg/inh nasal spray 2 sprays, Nares, Both, Daily, Use every day during allergy season. While using spray keep head down., # 3 each, 3 Refills, Maintenance, 03/18/24 10:28:00 EDT, [facility] #[id number], ., 2 spraysNares, Both Daily,x90 days,Instr:Use every day duri... Start Date: 03/18/24 Stop Date: 03/13/25 Status: Ordered formoterol 10 mcg/mL inhalation solution See Instructions, USE 2 ML VIA NEBULIZER TWICE DAILY USING A CONTINUOUS FLOW VIA NEBULIZER, # 120 mL, 11 Refills, Maintenance, 01/19/24 8:40:00 EDT, [email or web address] #[id number], 165, cm, 01/19/24 7:55:00 EDT, Height, 85.45, [...] E11.9 One Touch Deljennifer, DM type 2, 01/19/24 9:20:00 EDT, Compound, 165, cm, 01/19/24 7:55:00 EDT, Height, 85.45, kg, 04... Start Date: 01/19/24 Status: Ordered levothyroxine 0.05 mg oral tablet 1 tablet, By Mouth, Daily, # 90 tablet, 3 Refills, Maintenance, 03/18/24 10:31:00 EDT, [email or web address] #[id number], 165, cm, 01/19/24 7:55:00 EDT, Height, 85.45, kg, 12/23/23 9:04:00 EDT, Dry Weight Start Date: 03/18/24 Stop Date: 03/13/25 Status: Ordered levothyroxine 0.05 mg oral tablet 1 tablet, By Mouth, Daily, for 90 days, # 90 tablet, 3 Refills, Hard Stop 03/18/24 10:31:00 EDT, 03/24/23 10:31:00 EDT, [email or web address] #[id number], 160, cm, 03/24/23 10:19:00 EDT, Height, 89.54, kg,02/09/23 16:45:00 EDT, Dry Weight Start Date: 03/24/23 Stop Date: 03/18/24 Status: Ordered lisinopril 40 mg oral tablet 1 tablet = 40 mg, By Mouth, Daily in AM, 11 AM Decreased dose, # 90 tablet, 3 Refills, Maintenance,03/18/24 10:12:00 EDT, Tablet, [facility] #[id number], 165, cm, 01/19/24 7:55:00 EDT, Height, 85.45, kg, 12/23/23 9:04:00 EDT, Dry Weight Start Date: 03/18/24 Stop Date: 03/13/25 Status: Ordered lisinopril 40 mg oral tablet 1 tablet = 40 mg, By Mouth, Daily in AM, for 90 days, 11 AM Decreased dose, # 90 tablet, 3 Refills,Hard Stop 03/18/24 10:12:00 EDT, 03/24/23 10:12:00 EDT, Tablet, [facility] #[id number], 160, cm, 03/24/23 9:26:00 EDT, Height, 89.54, kg, ... Start Date: 03/24/23 Stop Date: 03/18/24 Status: Ordered Matzim LA 180 mg/24 hours oral tablet, extended release 1 tablet = 180 mg, By Mouth, Daily in AM, Take at 11 AM, # 90 tablet, 3 Refills, Maintenance, 03/18/24 9:58:00 EDT, ER Tablet, [facility] #[id number], 165, cm, 01/19/24 7:55:00 EDT, Height, 85.45, [...] 9:58:00 EDT, 03/24/23 9:58:00 EDT, ER Tablet, [email or web address] #[id number], 160, cm, 03/24/23 9:26:00 EDT, H... Start Date: 03/24/23 Stop Date: 03/18/24 Status: Ordered MetFORMIN (Eqv-Glucophage XR) 500 mg oral tablet, extended release 1 tablet, By Mouth, 2 times a day with meals, INCREASE DOSE, # 180 tablet, 3 Refills, Maintenance, 12/22/23 16:13:00 EDT, [email or web address] #[id number], 165, cm, 12/20/23 5:43:00 EDT, Height, 84.5, kg,12/19/23 17:15:00 EDT, Dry Weight Start Date: 12/22/23 Status: Ordered metoprolol 25 mg oral tablet, extended release 25 mg, 1, tablet, By Mouth, Daily, # 30 tablet, Refills 11, Tot. Refills 11, Maintenance, 01/19/24 8:40:00 EDT, Route to Pharmacy Electronically, [facility] #[id number], 165, cm, 01/19/24 7:55:00 EDT, Height, 85.45, kg, 12/23/23 9:04:00 EDT, Dry... Start Date: 01/19/24 Status: Ordered mirtazapine 15 mg oral tablet 0.5 tablet, By Mouth, Daily at bedtime, # 45 tablet, 3 Refills, Maintenance, 03/18/24 10:22:00 EDT,[email or web address] #[id number], 165, cm, 01/19/24 7:55:00 EDT, Height, 85.45, kg, 12/23/23 9:04:00 EDT, Dry Weight Start Date: 03/18/24 Stop Date: 03/13/25 Status: Ordered mirtazapine 15 mg oral tablet 0.5 tablet, By Mouth, Daily at bedtime, for 90 days, # 45 tablet, 3 Refills, Hard Stop 03/18/24 10:22:00 EDT, 03/24/23 10:22:00 EDT, [email or web address] #[id number], 160, cm, 03/24/23 10:19:00 EDT, Height, 89.54, kg, 02/09/23 16:45:00 EDT, Dry Weight Start Date: 03/24/23 Stop Date: 03/18/24 Status: Ordered montelukast 10 mg oral tablet 1, tablet, By Mouth, Daily at bedtime, SUPPLY., # 90 tablet, Refills 3, Tot. Refills 3, Maintenance, 06/05/23 14:50:00 EDT, Route to Pharmacy Electronically, [email or web address] #[id number], 160, cm, 03/24/23 10:19:00 EDT, Height, 89.54, kg, 02/09/23 16:4... Start Date: 06/05/23 Status: Ordered Nucala Prefilled Autoinjector 100 mg/mL subcutaneous solution = 100 mg, Subcutaneous Infusion, Every 28 days, j45.40, # 1 each, 11 Refills, Maintenance, 01/12/2414:58:00 EDT, [facility], Partial fill upon patient request if the prescription isfor a schedule II opioid drug., 165, cm, 01/04/24 1... Start Date: 01/13/24 Status: Ordered Drn-sfb-ugkar medical-grade oxford diabetic shoes, depth or hightop Kdt-nvu-oyrrk medical-grade oxford diabetic shoes, depth or hightop, [...] capsule, 3 Refills, Maintenance, 03/18/24 10:28:00 EDT, [email or web address] #[id number], 165, cm, 01/19/24 7:55:00 EDT, Height, 85.45, kg, 12/23/23 9:04:00 EDT, Dry Weight Start Date: 03/18/24 Stop Date: 03/13/25 Status: Ordered omeprazole 20 mg oral enteric coated capsule 1 capsule = 20 mg, By Mouth, Daily, for 90 days, 30 minutes before breakfast MD is aware of interaction with citalopram, # 90 capsule, 3 Refills, Hard Stop 03/18/24 10:28:00 EDT, 03/24/23 10:28:00 EDT, [email or web address] #[id number], 160, cm, 03/24/23 1... Start Date: 03/24/23 Stop Date: 03/18/24 Status: Ordered pravastatin 80 mg oral tablet 1 tablet, By Mouth, Daily, # 90 tablet, 3 Refills, Maintenance, 03/24/23 10:32:00 EDT, [email or web address] #[id number], 160, cm, 03/24/23 10:19:00 EDT, Height, 89.54, kg, 02/09/23 16:45:00 EDT, Dry Weight Start Date: 03/24/23 Stop Date: 03/18/24 Status: Ordered Premarin Vaginal 0.625 mg/gm cream with applicator See Instructions, APPLY 1/2 GRAM IN THE VAGINA EVERY WEDNESDAY AND WEDNESDAY, # 30 Gm, 11 Refills, Maintenance, 01/19/24 9:20:00 EDT, [email or web address] #[id number], 30, APPLY 1/2 GRAM IN THE VAGINA [...] in AM, at 11 AM Given by magazine worker, Dr. Indio Mason, # 30 tablet, Refills [...] 5, 6, 7, 8 Confirmed 08/09/06 Active *[id number] Functional Architect Michelle Cain Confirmed Active Varicose vein Confirmed [...] Team Personnel Name: Haley Gonzalez RN Position: [facility] RN Member Role: Primary Care Nurse Name: Marychuy MCCLAIN, Jessica Position: [facility] Physician - Primary Care Member Role: PCP Address: Address: [address] [place] [address]- Care Team Related Persons Name: SANDY BOYCE Address: [address] [place] [address] Name: BOYCECOLT Address: [address] [place] [address]
--- OUTSIDE RECORDS SUMMARY | 2024-07-06 12:04 | XMS_ITS | Continuity of Care Document ---
Author Organization [facility] Address [address] [place] [address]- Care Team Providers Care Senior Online Marketing Manager Name Role Phone Marychuy MCCLAIN, Jessica Primary Care Physician [facility]): [facility] - 10/01/19 [facility] [address] [address]- [facility] Attending Physician: Admtr, Ar8 Allergies, [...] Refills, Maintenance, 08/30/19 9:25:00 EST, ER Tablet, [facility] #[id number], 162.5, cm, 07/25/19 9:45:00 ES... Start Date: [...] 01/02/19 12:49:20 EDT, Route to Pharmacy Electronically, [id number], [id number] Start Date: 01/02/19 Status: Ordered calcium (as [...] 07/18/19 10:44:28 EST, Route to Pharmacy Electronically, [id number], [facility] #[id number], MD is awared of interaction w prilosec Start Date: 07/18/19 Status: Ordered Colace sodium 100 mg oral capsule 100 mg, 1, capsule, By Mouth, 2 times a day, PRN, with plenty of water, # 180 capsule, Refills 3, Tot. Refills 3, Maintenance, as needed for constipation, 08/30/19 9:25:00 EST, Route to Pharmacy Electronically, [facility] #[id number], 162.5, cm,... Start Date: 08/30/19 Status: Ordered [...] While using spray keep head down., # 16 Gm, 11 Refills, Maintenance, 09/08/19 10:02:00 EST, [facility] #[id number], dispense when patient request it, 2 sprays Nares, Both Daily,x... Start Date: 09/08/19 Stop Date: 09/02/20 Status: Ordered hydrALAZINE 10 mg oral tablet 10 mg, 1, tablet, By Mouth, 2 times a day, 90 days, # 180 tablet, Refills 3, Tot. Refills 3, Maintenance, 08/30/19 9:25:00 EST, Route to Pharmacy Electronically, [facility] #[id number], 162.5, cm, 07/25/19 9:45:00 EST, Height, 85.9, kg, 07/25/19... Start Date: 08/30/19 Status: Ordered hydrochlorothiazide-lisinopril 25 mg-20 mg oral tablet 1 tablet, By Mouth, Daily, discontinue HCTZ 12.5/lisnopril 20mg, # 90 tablet, 3 Refills, Maintenance, 09/04/19 22:49:00 EST, Tablet, [facility] #[id number], 90 days, 1 tablet By Mouth Daily,Instr:discontinue HCTZ 12.5/lisnopril 20mg, 162.5, cm, 1... Start Date: 09/04/19 Status: Ordered Incruse Ellipta 62.5 mcg/inh inhalation powder = 62.5 mcg, Inhalation, Every 24 hours, doses should be taken at least 24 hours apart discontinue Tudorza, # 30 each, 11 Refills, Maintenance, 08/30/19 9:23:00 EST, [facility] #04556, 162.5, cm, 07/25/19 9:45:00 EST, Height, 85.9, [...] 08/30/19 9:25:00 EST, Route to Pharmacy Electronically, [email or web address] #[id number], 162.5, cm, 07/25/19 9:45:00 EST, Height,... Start Date: 08/30/19 Status: Ordered meclizine 12.5 mg oral tablet 1-2 tablet, By Mouth, 3 times a day, PRN as needed for dizziness, # 30 tablet, 1 Refills, Maintenance, 10/12/18 12:32:44 EST Start Date: 10/12/18 Status: Ordered metFORMIN 500 mg oral tablet 1 tablet = 500 mg, By Mouth, 2 times a day, discontinue metformin 1000mg, # 180 tablet, 3 Refills, Maintenance, 12/23/18 16:21:02 EDT, Tablet Start Date: 12/23/18 Status: Ordered Bsy-cvi-zokqr medical-grade oxford diabetic shoes, depth or hightop Vie-rkx-rhcyk medical-grade oxford diabetic shoes, depth or hightop, [...] 3 Refills, Maintenance, 08/30/19 9:25:00 EST, Tablet, [email or web address] #[id number], 162.5, cm, 07/25/19 9:45:00 EST, Height, 85.9, [...] 06/28/19 7:33:11 EDT, Route to Pharmacy Electronically, [id number], [id number] Start Date: 06/28/19 Status: Ordered Sinus rinse [...] Wheezing/Shortness of Breath, as directed 15 minutes beforeexercise, # 18 Gm, 5 Refills, Maintenance, 08/23/19 21:16:32 EST, dispense when patient request it,162.5, cm, 07/25/19 9:45:12 EST, Height, 85.9, kg,... Start Date: 08/23/19 Status: Ordered Voltaren 1% topical gel = 2 Gm, Topically, 4 times a day, # 100 Gm, 2 Refills, Maintenance, 12/23/18 14:28:39 EDT, 2 Gm Topically 4 times a day,x14 days Start Date: 12/23/18 Stop Date: 02/03/19 Status: Ordered Problem List Condition Effective Dates [...] 9, 10, 11, 12, 13 08/09/06 Active *[id number] Partn isai Pauline Rossi(Confirmed) Active Prurigo nodularis(Confirmed) 08/17/08 Active Renal insufficiency(Confirmed) Active Non-insulin dependent type 2 diabetes mellitus(Confirmed) 01/24/09 Active Varicose vein(Confirmed) Active Vitamin D deficiency(Confirmed) 07/26/08 Active 1CKD Stage III. GFR 58 2left breast confirmed by breast biopsy on 01/14/[address] Juarez Hinojosa 3EGD correct date 08/23/01 4Neg EGD 08/25/[address] Js Sullivan from [facility] 51ry to urinary incontinence [...] (less than 100 in lifetime) entered on: 07/25/19 Sex
--- OUTSIDE RECORDS SUMMARY | 2024-07-06 12:04 | XMS_ITS | Continuity of Care Document ---
Author Organization [facility] Address [address] [place] [address]- Care Team Providers Care Timber Buyer Name Role Phone Marychuy MCCLAIN, Jessica Primary Care Physician [facility] Date[facility]): 11[facility]23 - 12/05/23 [facility] [address], [place] [address] Attending Physician: Dominik Elizabeth Admitting Physician: Dominik [...] virus vaccine, inactivated 5 07/29/06 Gi javon [id number] 12y+ bivalent booster vax 03/24/23 Given [id number] 12y+ bivalent booster vax 07/28/22 Recorded SARS-CoV-2 mRNA (cveaofx-nbpe-jeopt) vax 02/17/22 Given SARS-CoV-2 (COVID-19) mRNA BNT-162b2 [...] tablet, 11 Refills, Maintenance, 03/24/23 10:28:00 EDT, [facility] #[id number], 160, cm, 03/24/23 10:19:00 EDT, Height, 89.54, kg, 0... Start Date: 03/24/23 Status: Ordered albuterol 0.083% inhalation solution 3 mL = 2.5 mg, Inhalation, Every 6 hours, # 25 each, 5 Refills, Maintenance, 08/12/22 15:02:00 EST,[facility] #[id number], 165, cm, 06/18/22 13:19:00 EDT, Height, 88.9, [...] Refills 0, Maintenance, 11/25/23 10:58:00 EDT, Route toPharmac Electronically, [id number], [facility] #[id number], 160, cm, 03/24/23 10:19:00 EDT, Height, 89.54, kg, 02/09/23... Start Date: 11/25/23 Status: Ordered calcium (as citrate)-vitamin D 315 mg-250 intl units oral tablet 2 tablet, By Mouth, 2 times a day, # 360 tablet, 3 Refills, Maintenance, 03/24/23 10:33:00 EDT, [facility] #[id number], 2 tablet By Mouth 2 times a day,x90 days, 160, cm, 03/24/23 10:19:00 EDT, Height, 89.54, kg, 02/09/23 16:45:00 EDT, Dry Weight Start Date: 03/24/23 Stop Date: 03/18/24 Status: Ordered ciclopirox 8% topical solution 1 application, Topically, Daily, as directed to affected area toenails, # 6.6 mL, 11 Refills, Maintenance, 03/24/23 10:42:00 EDT, Solution, [facility] #[id number], ., 1 application Topically Daily,Instr:as directed; to affected area toenails, 16... Start Date: 03/24/23 Status: Ordered citalopram 20 mg oral tablet 20 mg, 1, tablet, By Mouth, Daily, # 90 tablet, Refills 3, Tot. Refills 3, Maintenance, 03/24/23 10:23:00 EDT, Route to Pharmacy Electronically, [facility] #[id number], is awared of interaction w rosasec, 160, cm, 03/24/23 10:19:00 EDT, He... Start Date: 03/24/23 Status: Ordered Clarinex 5 mg oral tablet 1 tablet = 5 mg, By Mouth, Daily, # 90 tablet, 3 Refills, Maintenance, 03/24/23 10:23:00 EDT, Tablet, [facility] #[id number], 160, cm, 03/24/23 10:19:00 EDT, Height, 89.54, [...] tablet, 3 Refills, Maintenance, 03/24/23 10:04:00 EDT, [facility] #[id number], 160, cm, 03/24/23 9:26:00 EDT, Height, 89.54, kg, 02/09/23 16:45:00 EDT, Dry Weight Start Date: 03/24/23 Status: Ordered EPINEPHrine 0.3 mg injectable solution = 0.3 mg, Intramuscular, Once, PRN Anaphylactic Reaction, # 1 each, 0 Refills, Soft Stop, 10/22/21 10:11:00 EST, [facility] #[id number], 165, cm, 10/22/21 9:05:00 EST, Height, 89.5, kg, 04/23/2121:43:00 EDT, Dry Weight Start Date: 10/22/21 Status: Ordered fluticasone 50 mcg/inh nasal spray 2 sprays, Nares, Both, Daily, Use every day during allergy season. While using spray keep head down., # 3 each, 3 Refills, Maintenance, 03/24/23 10:28:00 EDT, [facility] #[id number], ., 2 spraysNares, Both Daily,x90 days,Instr:Use every day duri... Start Date: 03/24/23 Stop Date: 03/18/24 Status: Ordered formoterol 10 mcg/mL inhalation solution See Instructions, USE 2 ML VIA NEBULIZER TWICE DAILY USING A CONTINUOUS FLOW VIA NEBULIZER, # 120 mL, 0 Refills, Maintenance, 11/16/23 9:56:00 EST, [facility] #[id number], 160, cm, 03/24/23 10:19:00 EDT, Height, 89.54, [...] Replace Required Details, Route to Pharmacy Electronically, [facility]... Start Date: 03/24/23 Status: Ordered Lancets See [...] tablet, 3 Refills, Maintenance, 03/24/23 10:31:00 EDT, [facility] #[id number], 160, cm, 03/24/23 10:19:00 EDT, Height, 89.54, kg, 02/09/23 16:45:00 EDT, Dry Weight Start Date: 03/24/23 Stop Date: 03/18/24 Status: Ordered lisinopril 40 mg oral tablet 1 tablet = 40 mg, By Mouth, Daily in AM, 11 AM Decreased dose, # 90 tablet, 3 Refills, Maintenance,03/24/23 10:12:00 EDT, Tablet, [facility] #[id number], 160, cm, 03/24/23 9:26:00 EDT, Height, 89.54, kg, 02/09/23 16:45:00 EDT, Dry Weight Start Date: 03/24/23 Stop Date: 03/18/24 Status: Ordered Matzim LA 180 mg/24 hours oral tablet, extended release 1 tablet = 180 mg, By Mouth, Daily in AM, Discontinue diltiazem 360 mg Takes at 11 AM, # 90 tablet,3 Refills, Maintenance, 03/24/23 9:58:00 EDT, ER Tablet, [facility] #[id number], 160, cm, 03/24/23 9:26:00 EDT, Height, 89.54, kg, 02/09/23 16:45... Start Date: 03/24/23 Stop Date: 03/18/24 Status: Ordered metFORMIN 500 mg oral tablet, extended release 1 tablet = 500 mg, By Mouth, 2 times a day, with meal Increase dose, # 180 tablet, 3 Refills, Maintenance, 03/24/23 10:19:00 EDT, ER Tablet, [facility] #[id number], 160, cm, 03/24/23 10:19:00 EDT, Height, 89.54, kg, 02/09/23 16:45:00 EDT, Dry W... Start Date: 03/24/23 Stop Date: 03/18/24 Status: Ordered mirtazapine 15 mg oral tablet 0.5 tablet, By Mouth, Daily at bedtime, # 45 tablet, 3 Refills, Maintenance, 03/24/23 10:22:00 EDT,[facility] #[id number], 160, cm, 03/24/23 10:19:00 EDT, Height, 89.54, kg, 02/09/23 16:45:00 EDT, Dry Weight Start Date: 03/24/23 Stop Date: 03/18/24 Status: Ordered montelukast 10 mg oral tablet 1, tablet, By Mouth, Daily at bedtime, SUPPLY., # 90 tablet, Refills 3, Tot. Refills 3, Maintenance, 06/05/23 14:50:00 EDT, Route to Pharmacy Electronically, [facility] #[id number], 160, cm, 03/24/23 10:19:00 EDT, Height, 89.54, kg, 02/09/23 16:4... Start Date: 06/05/23 Status: Ordered Enr-idd-wyfii medical-grade oxford diabetic shoes, depth or hightop Hit-ggt-njcva medical-grade oxford diabetic shoes, depth or hightop, [...] capsule, 3 Refills, Maintenance, 03/24/23 10:28:00 EDT, [facility] #[id number], 160, cm, 03/24/23 10:19:00 EDT, Height, 89.54, kg, 0... Start Date: 03/24/23 Stop Date: 03/18/24 Status: Ordered pravastatin 80 mg oral tablet 1 tablet, By Mouth, Daily, # 90 tablet, 3 Refills, Maintenance, 03/24/23 10:32:00 EDT, [facility] #[id number], 160, cm, 03/24/23 10:19:00 EDT, Height, 89.54, kg, 02/09/23 16:45:00 EDT, Dry Weight Start Date: 03/24/23 Stop Date: 03/18/24 Status: Ordered Premarin Vaginal 0.625 mg/gm cream with applicator See Instructions, APPLY 1/2 GRAM IN THE VAGINA EVERY WEDNESDAY AND WEDNESDAY, # 30 Gm, 11 Refills, Maintenance, 03/24/23 10:23:00 EDT, [facility] #[id number], 30, APPLY 1/2 GRAM IN THE VAGINA EVERY WEDNESDAY AND WEDNESDAY, 160, cm, 03/24/23 10:19:00 EDT,... Start Date: 03/24/23 Status: Ordered ProAir HFA 90 mcg/inh inhalation aerosol with adapter 2, puffs, Inhalation, 4 times a day, PRN, Fill when patient request it, # 1 each, Refills 5, Tot. Refills 5, Maintenance, 03/24/23 10:30:00 EDT, Route to Pharmacy Electronically, [id number], [facility] #[id number], 160,... Start Date: 03/24/23 Status: Ordered Shoes [...] in AM, at 11 AM Given by bottle dealer, Dr. Indio Mason, # 30 tablet, Refills [...] day, PRN itching Apply to lower extremities Lithuanian, # 30 Gm, 2Refills, Maintenance, 03/24/23 10:34:00 EDT, [facility] #[id number], 1 application Topically 3times a day,Instr:PRN itching [...] 5, 6, 7, 8 Confirmed 08/09/06 Active *[id number] Medical Research Tech Michelle Cain Confirmed Active Varicose vein Confirmed [...] Team Personnel Name: Haley Gonzalez RN Position: [facility] RN Member Role: Primary Care Nurse Name: Jessica Perrin MD Position: [facility] Physician - Primary Care Member Role: PCP Address: Address: [address] [place] [address]- Care Team Related Persons Name: SANDY BOYCE Address: home [address] [place] [address] Name: COLT BOYCE Address: [address] [place] [address]
--- OUTSIDE RECORDS SUMMARY | 2024-07-06 12:04 | XMS_ITS | Continuity of Care Document ---
Author Organization [facility] Address [address] [place] [address]- Care Team Providers Care Licensed Pharmacist Name Role Phone Marychuy MCCLAIN, Jessica Primary Care Physician [facility] 08[facility]22 - 09/11/22 [facility] [address]- [place] Allergies, Adverse Reactions, Alerts Substance Reaction [...] Vaccine Date Status Refusal Reason SARS-CoV-2 mRNA (advcsyb-nvbs-vrdsc) vax 02/17/22 Given influenza virus vaccine, inactivated 06/23/21 Rbian rded influenza virus vaccine, inactivated 07/03/20 Brian [...] tablet, 11 Refills, Maintenance, 05/13/22 11:27:00 EDT, [facility] #[id number], Partial fill upon cherelle... Start Date: 05/13/22 Status: Ordered albuterol 0.083% inhalation solution 3 mL = 2.5 mg, Inhalation, Every 6 hours, # 25 each, 5 Refills, Maintenance, 08/12/22 15:02:00 EST,[facility] #[id number], 165, cm, 06/18/22 13:19:00 EDT, Height, 88.9, kg, 02/09/22 15:14:00 EDT, Dry Weight Start Date: 08/12/22 Stop Date: 5/29/23 Status: Ordered budesonide 0.5 mg/2 mL inhalation suspension 0.5 mg, 2, mL, Neb, 2 times a day, # 120 mL, Refills 11, Tot. Refills 11, Maintenance, 08/13/22 15:24:00 EST, Suspension, Route to Pharmacy Electronically, [id number], [facility] #[id number], 165, cm, 06/18/22 13:19:00 E... Start Date: 08/13/22 Status: Ordered calcium (as citrate)-vitamin D 315 mg-250 intl units oral tablet 2 tablet, By Mouth, 2 times a day, # 360 tablet, 0 Refills, Maintenance, 09/11/22 8:59:00 EST, [facility] #10477, 90, TAKE 2 TABLETS BY MOUTH TWICE DAILY, 165, cm, 06/18/22 13:19:00 EDT, Height, 88.9, kg, 02/09/22 15:14:00 EDT, Dry Weight Start Date: 09/11/22 Status: Ordered citalopram 20 mg oral tablet 20 mg, 1, tablet, By Mouth, Daily, # 90 tablet, Refills 3, Tot. Refills 3, Maintenance, 07/08/22 14:31:00 EDT, Route to Pharmacy Electronically, [facility] #[id number], MD is awared of interaction w nicky, 165, cm, 06/18/22 13:19:00 EDT, He... Start Date: 07/08/22 Status: Ordered Clarinex 5 mg oral tablet 1 tablet = 5 mg, By Mouth, Daily, # 90 tablet, 3 Refills, Maintenance, 04/29/22 12:53:00 EDT, Tablet, [facility] #17066, 165, cm, 02/23/22 14:24:00 EDT, Height, 88.9, [...] 0 Refills, Soft Stop, 10/22/21 10:11:00 EST, [facility] #29013, 165, cm, 10/22/21 9:05:00 EST, Height, 89.5, kg, 04/23/2121:43:00 EDT, Dry Weight Start Date: 10/22/21 Status: Ordered fluticasone 50 mcg/inh nasal spray See Instructions, SPRAY 2 TIMES IN EACH NOSTRILS EVERY DAY. NEEDED FOR ALLERGY SEASON. WHEN SPRAYING KEEP HEAD DOWN, # 16 Gm, 11 Refills, 02/17/22 13:14:00 EDT, [facility] #[id number], 30, SPRAY 2 TIMES IN EACH NOSTRILS EVERY DAY. NEEDED FO... Start Date: 02/17/22 Status: Ordered formoterol 10 mcg/mL inhalation solution 2 mL = 20 mcg, Inhalation, 2 times a day, using a continuous flow nebulizer, # 60 each, 11 Refills,Maintenance, 08/13/22 15:24:00 EST, Solution, [facility] #53862, 165, cm, 06/18/22 13:19:00 EDT, Height, 88.9, kg, 02/09/22 15:14:00 EDT, Dry... Start Date: 08/13/22 Status: Ordered FREESTYLE LANCETS [...] 06/18/22 13:56:00 EDT, Route to Pharmacy Electronically, [facility] #[id number], Partial fill upon patient request if... Start Date: 06/18/22 Status: Ordered hydrochlorothiazide 12.5 mg oral tablet 1 tablet = 12.5 mg, By Mouth, Daily, discontinue HCTZ/lisinopril 25mg /20mg, # 30 tablet, 11 Refills, Maintenance, 10/29/21 13:48:00 EST, Tablet, [facility] #08673, 165, cm, 10/29/21 12:16:00 EST, Height, 89.5, kg, 04/23/21 21:43:00 EDT, Start Date: 10/29/21 Status: Ordered levothyroxine 0.05 mg oral tablet 1 tablet, By Mouth, Daily, # 90 tablet, 1 Refills, Maintenance, 05/20/22 16:09:00 EDT, [facility] #97592, 165, cm, 05/20/22 16:02:00 EDT, Height, 88.9, kg, 02/09/22 15:14:00 EDT, Dry Weight Start Date: 05/20/22 Status: Ordered lisinopril 40 mg oral tablet 1 tablet = 40 mg, By Mouth, Daily, discontinue HCTZ/lisinopril 25mg /20mg, # 30 tablet, 11 Refills,Maintenance, 10/29/21 13:47:00 EST, Tablet, [facility] #70494, Partial fill upon patient request if the prescription is for a schedule II op... Start Date: 10/29/21 Status: Ordered Matzim LA 360 mg/24 hours oral tablet, extended release 1 tablet, By Mouth, Daily, # 90 tablet, 3 Refills, 02/17/22 13:08:00 EDT, [facility] #50691, 165, cm, 02/17/22 12:49:00 EDT, Height, 88.9, kg, 02/09/22 15:14:00 EDT, Dry Weight Start Date: 02/17/22 Status: Ordered metFORMIN 500 mg oral tablet 1 tablet, By Mouth, 2 times a day, # 180 tablet, 1 Refills, Maintenance, 09/10/22 18:37:00 EST, [facility] #09500, 165, cm, 06/18/22 13:19:00 EDT, Height, 88.9, kg, 02/09/22 15:14:00 EDT, Dry Weight Start Date: 09/10/22 Status: Ordered mirtazapine 15 mg oral tablet 0.5 tablet, By Mouth, Daily at bedtime, DECREASED DOSE., # 45 tablet, 1 Refills, Maintenance, 05/12/22 9:17:00 EDT, [facility] #68911, 165, cm, 02/23/22 14:24:00 EDT, Height, 88.9, kg, 02/09/22 15:14:00 EDT, Dry Weight Start Date: 05/12/22 Status: Ordered montelukast 10 mg oral tablet 1, tablet, By Mouth, Daily at bedtime, SUPPLY., # 90 tablet, Refills 1, Maintenance, 06/18/22 14:04:00 EDT, Route to Pharmacy Electronically, [facility] #[id number], 165, cm, 06/18/22 13:19:00 EDT, Height, 88.9, kg, 02/09/22 15:14:00 EDT, Dry Weight Start Date: 06/18/22 Stop Date: 09/16/22 Status: Ordered Glx-wwq-ntzni medical-grade oxford diabetic shoes, depth or hightop Cge-bck-omtfl medical-grade oxford diabetic shoes, depth or hightop, [...] Refills, Maintenance, 12/18/21 15:48:00 EDT, EC Capsule, [facility] #54445, 165, cm, 10/29/21 12:16:00 EST,... Start Date: 12/18/21 Status: Ordered Paxlovid 150 mg-100 mg (150 mg-100 mg Dose) oral tablet See Instructions, Three tablets by mouth BID as per package directions, # 1 pack/packet, 0 Refills,Acute 06/11/23 9:38:00 EDT, 06/10/22 9:37:00 EDT, [facility] #53779, Partial fill upon patient request if the prescription is for a schedule... Start Date: 06/10/22 Stop Date: 06/11/23 Status: Ordered pravastatin 80 mg oral tablet 1 tablet, By Mouth, Daily, # 90 tablet, 1 Refills, Maintenance, 06/27/22 12:04:00 EDT, [facility] #84707, 165, cm, 06/18/22 13:19:00 EDT, Height, 88.9, kg, 02/09/22 15:14:00 EDT, Dry Weight Start Date: 06/27/22 Status: Ordered Premarin Vaginal 0.625 mg/gm cream with applicator See Instructions, APPLY 1/2 GRAM IN THE VAGINA EVERY WEDNESDAY AND WEDNESDAY, # 30 Gm, 11 Refills, Maintenance, 05/11/22 14:58:00 EDT, [facility] #94834, 30, APPLY 1/2 GRAM IN THE VAGINA [...] Gm, 5 Refills, Maintenance, 05/13/22 11:27:00 EDT, [facility] #12306, Partial fill upon patient request if the [...] 4, 5, 6, 7 Confirmed 08/09/06 Active *[phone] Negative Turner Apprentice Isabel Arellano Confirmed Active Varicose vein Confirmed [...] Care Nurse Name: Jessica Perrin MD Position: [facility] Primary Care Physician Member Role: PCP Address: Address: [address] [place] [address]- Care Team Related Persons Name: SANDY BOYCE Address: home [address] [place] [address] Name: COLT BOYCE Address: [address] [place] [address]
--- OUTSIDE RECORDS SUMMARY | 2024-07-06 12:04 | XMS_ITS | Continuity of Care Document ---
Author Organization [facility] Address [address] [place] [address]- Care Team Providers Care Fish Filleter Name Role Phone Marychuy MCCLAIN, Jessica Primary Care Physician Encounter [facility] Date(s): 09/16/20 - 10/16/20 [facility]/[address] [address]- Allergies, Adverse Reactions, Alerts Substance Reaction Severity [...] 6 tablets/day); 90 days, # 300 tablet, 1 Refills, Maintenance, 07/22/20 10:02:00 EST, ER Tablet, [email or web address] #[id number], 165, cm, 11/03/19 18:19:00 ES... Start Date: 07/22/20 Status: Ordered albuterol 0.083% inhalation solution 3 [...] 02/02/20 16:28:00 EDT, Route to Pharmacy Electronically, [email or web address] #[id number], 165, cm, 11/03/19 18:19:00 EST, Height, 88, kg, 11/03/19 18:19:00... Start Date: 02/02/20 Status: Ordered calcium (as citrate)-vitamin D 315 mg-250 intl units oral tablet 2 tablet, By Mouth, 2 times a day, Tej, # 360 tablet, 3 Refills, Maintenance, 02/02/20 16:28:00 EDT, Tablet, [facility] #[id number], 2 tablet By Mouth 2 times a day,x90 days,Instr:Tej, 165, cm, 11/03/19 18:19:00 EST, Height, 88, kg, 11/03/19 18... Start Date: 02/02/20 Stop Date: 01/27/21 Status: Ordered celecoxib 100 mg oral capsule 1 capsule = 100 mg, By Mouth, 2 times a day, PRN knee pain, # 60 capsule, 5 Refills, Maintenance, 06/26/20 8:22:00 EDT, Capsule, [facility] #[id number], 165, cm, 11/03/19 18:19:00 EST, Height, 88, kg, 11/03/19 18:19:00 EST, Dry Weight Start Date: 06/26/20 Status: Ordered citalopram 20 mg oral tablet 20 mg, 1, tablet, By Mouth, Daily, # 90 tablet, Refills 3, Tot. Refills 3, Maintenance, 07/01/20 17:44:00 EDT, Route to Pharmacy Electronically, [email or web address] #[id number], is awared of interaction w [email or web address], 165, cm, 11/03/19 18:19:00 EST, He... Start Date: 07/01/20 Status: Ordered Colace sodium 100 mg oral capsule 100 mg, 1, capsule, By Mouth, 2 times a day, PRN, with plenty of water, # 180 capsule, Refills 3, Tot. Refills 3, Maintenance, as needed for constipation, 08/30/19 9:25:00 EST, Route to Pharmacy Electronically, [facility] #[id number], 162.5, cm,... Start Date: 08/30/19 Status: Ordered dilTIAZem 360 mg/24 hours oral tablet, extended release 1 tablet = 360 mg, By Mouth, Daily, # 90 tablet, 3 Refills, Maintenance, 09/05/20 9:01:00 EST, [facility] #[id number], 165, cm, 11/03/19 18:19:00 EST, Height, 88, kg, 11/03/19 18:19:00 EST, Dry Weight Start Date: 09/05/20 Status: Ordered Dulera 200 mcg-5 mcg/inh inhalation aerosol 2 puffs, Inhalation, 2 times a day, # 13 Gm, 11 Refills, Maintenance, 08/10/20 16:21:00 EST, Aerosol, [facility] #[id number], 2 puffs Inhalation 2 times a day, 165, cm, 11/03/19 18:19:00 EST, Height, 88, kg, 11/03/19 18:19:00 EST, Dry Weight Start Date: 08/10/20 Status: Ordered EPINEPHrine 0.3 mg injectable solution = 0.3 mg, Intramuscular, Once, PRN Anaphylactic Reaction, # 1 each, 0 Refills, Soft Stop, 06/26/20 8:38:00 EDT, [facility] #[id number], 165, cm, 11/03/19 18:19:00 EST, Height, 88, kg, 11/03/19 18:19:00 EST, Dry Weight Start Date: 06/26/20 Status: Ordered fluticasone 50 mcg/inh nasal spray 2 sprays, Nares, Both, Daily, Use every day during allergy season. While using spray keep head down. 30 days not 90 days dispense when patient requested by patient, # 16 Gm, 5 Refills, Maintenance, 06/26/20 8:35:00 EDT, [facility] #054... Start Date: 06/26/20 Status: Ordered hydrALAZINE 10 mg oral tablet 10 mg, 1, tablet, By Mouth, 2 times a day, decrease dose, # 180 tablet, Refills 3, Tot. Refills 3, Maintenance, 06/26/20 8:44:00 EDT, Route to Pharmacy Electronically, [facility] #[id number], 165, cm, 11/03/19 18:19:00 EST, Height, 88, kg, ... Start Date: 06/26/20 Stop Date: 06/21/21 Status: Ordered hydrochlorothiazide-lisinopril 25 mg-20 mg oral tablet 1 tablet, By Mouth, Daily, discontinue HCTZ 12.5/lisnopril 20mg, # 90 tablet, 0 Refills, Maintenance, 08/19/20 11:21:00 EST, Tablet, [facility] #[id number], 90 days, 1 tablet By Mouth Daily,Instr:discontinue HCTZ 12.5/lisnopril 20mg, 165, cm, ... Start Date: 08/19/20 Status: Ordered Incruse Ellipta 62.5 mcg/inh inhalation powder = 62.5 mcg, Inhalation, Every 24 hours, doses should be taken at least 24 hours apart discontinue Tudorza, # 30 each, 5 Refills, Maintenance, 09/19/20 12:24:00 EST, [email or web address] #[id number], 165, cm, 11/03/19 18:19:00 EST, Height, 88, kg, 11/03/19... Start Date: 09/19/20 Status: Ordered Lancets See Instructions, # 50 [...] supply, # 90 tablet, 1 Refills, Maintenance, 08/28/20 9:20:00 EST, [facility] #[id number], 165, cm, 11/03/19 18:19:00 EST, Height, 88, kg, 11/03/19 18:19:00 EST, Dry Weight Start Date: 08/28/20 Status: Ordered loratadine 10 mg oral tablet 10 mg, 1, tablet, By Mouth, Daily, PRN, # 90 tablet, Refills 3, Tot. Refills 3, Maintenance, as needed for allergy symptoms, 08/30/19 9:25:00 EST, Route to Pharmacy Electronically, [facility] #[id number], 162.5, cm, 07/25/19 9:45:00 EST, Height,... Start Date: 08/30/19 Status: Ordered metFORMIN 500 mg oral tablet 1 tablet, By Mouth, 2 times a day, # 180 tablet, 3 Refills, Maintenance, 09/16/20 17:27:00 EST, [facility] #[id number], 165, cm, 11/03/19 18:19:00 EST, Height, 88, kg, 11/03/19 18:19:00 EST, DryWeight Start Date: 09/16/20 Status: Ordered Kls-tta-bllnb medical-grade oxford diabetic shoes, depth or hightop Xtr-yfj-mgqhn medical-grade oxford diabetic shoes, depth or hightop, See Instructions, # 1 pair, Refills 0, Tot. 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 Start Date: 04/12/19 Status: Ordered pravastatin 80 mg oral tablet 1 tablet = 80 mg, By Mouth, Daily, 90 days, # 90 tablet, 1 Refills, Maintenance, 10/04/20 9:38:00 EST, Tablet, [email or web address] #[id number], 165, cm, 11/03/19 18:19:00 EST, Height, 88, kg, 11/03/19 18:19:00 EST, Dry Weight Start Date: 10/04/20 Status: Ordered Premarin Vaginal 0.625 mg/gm cream with applicator = 0.5 Gm, Vaginally, Every Wednesday and , # 42.5 Gm, 11 Refills, Maintenance, 02/02/20 16:27:00 EDT, [facility] #[id number], discontinue estradiol 10mcg vaginal, 0.5 Gm Vaginally Every Wednesday and , 165, cm, 11/03/19 18:19:00 EST,... Start Date: 02/02/20 Status: Ordered PriLOSEC OTC 20 mg oral delayed release tablet 1 tablet = 20 mg, By Mouth, Daily, Take 30 mins before breakfast, # 90 tablet, 3 Refills, Maintenance, 02/02/20 16:28:00 EDT, [facility] #[id number], is awared of interaction with citalopram,165, cm, 11/03/19 18:19:00 EST, Height, 88, kg,... Start Date: 02/02/20 Status: Ordered Remeron 15 mg oral tablet 0.5 tablet = 7.5 mg, By Mouth, Daily at bedtime, # 45 tablet, 1 Refills, Maintenance, 06/05/20 9:34:00 EDT, Tablet, [email or web address] #[id number], 165, cm, 11/03/19 18:19:00 EST, Height, 88, kg, 11/03/19 18:19:00 EST, Dry Weight Start Date: 06/05/20 Status: Ordered Shoes insert, molded to foot [...] tablet, Refills 1, Tot. Refills 1, Maintenance, 06/28/20 12:31:00 EDT, Route to Pharmacy Electronically, [facility] #[id number], 165, cm, 11/03/19 18:19:00 EST, Height, 88, kg, 02... Start Date: 06/28/20 Status: Ordered Sinus rinse Sinus rinse, See [...] Gm, 5 Refills, Maintenance, 04/04/20 12:19:00 EDT, [facility] #[id number]... 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) 7Mild obstructive sleep apnea per home sleep [...]
--- OUTSIDE RECORDS SUMMARY | 2024-07-06 12:04 | XMS_ITS | Continuity of Care Document ---
Author Organization [facility] Address [address] [place] [id number]- Care Team Providers Care Teachers' Assistant Name Role Phone Marychuy MCCLAIN, Jessica Primary Care Physician [facility] Date(s): 04/05/24 - 05/05/24 [facility] [address] [place] [id number] Attending Physician: Dominik Elizabeth Admitting Physician: Dominik Elizabeth Referring Physician: Dominik Elizabeth Allergies, Adverse Reactions, Alerts Substance Reaction Severity [...] virus vaccine, inactivated 5 07/29/06 Gi javon [id number] 12y+ bivalent booster vax 03/24/23 Given [id number] 12y+ bivalent booster vax 07/28/22 Recorded SARS-CoV-2 mRNA (icocbhj-jpvm-fprvl) vax 02/17/22 Given SARS-CoV-2 (COVID-19) mRNA BNT-162b2 [...] Refills, Maintenance, 01/19/24 8:32:00 EDT, ER Tablet, [facility] #[id number], Partial fill upon patient request if th... Start Date: 01/19/24 Status: Ordered Albuterol (Eqv-ProAir HFA) 90 mcg/inh inhalation aerosol 2 puffs, Inhalation, Every 6 hours, PRN Wheezing/Shortness of Breath, # 8.5 Gm, 5 Refills, Maintenance, 01/19/24 8:30:00 EDT, [facility] #[id number], If pump is not covered, it can [...] 01/19/24 8:40:00 EDT, Route to Pharmacy Electronically, [id number], [facility] #[id number], 165, cm, 01/19/24 7:55:00 EDT, Height, 85.... Start Date: 01/19/24 Status: Ordered calcium (as citrate)-vitamin D 315 mg-250 intl units oral tablet 2 tablet, By Mouth, 2 times a day, # 360 tablet, 3 Refills, Maintenance, 03/18/24 10:33:00 EDT, [facility] #[id number], 2 tablet By Mouth 2 times a day,x90 days, 165, cm, 01/19/24 7:55:00 EDT, Height, 85.45, kg, 12/23/23 9:04:00 EDT, Dry Weight Start Date: 03/18/24 Stop Date: 03/13/25 Status: Ordered ciclopirox 8% topical solution 1 application, Topically, Daily, as directed to affected area toenails, # 6.6 mL, 11 Refills, Maintenance, 01/19/24 9:20:00 EDT, Solution, [facility] #[id number], ., 1 application Topically Daily,Instr:as directed; to affected area toenails, 165... Start Date: 01/19/24 Status: Ordered Clarinex 5 mg oral tablet 1 tablet = 5 mg, By Mouth, Daily, # 90 tablet, 3 Refills, Maintenance, 03/18/24 10:23:00 EDT, Tablet, [facility] #63845, 165, cm, 01/19/24 7:55:00 EDT, Height, 85.45, [...] 11 Refills, Maintenance, 01/19/24 8:42:00 EDT, Gel, [facility] #81710, ., 165, cm, 01/19/24 7:55:00 EDT, Height, 85.45, kg, 12/23/23 9:04:00 EDT,Dry Weight Start Date: 01/19/24 Stop Date: 07/05/24 Status: Ordered Eliquis 5 mg oral tablet 1 tablet, By Mouth, 2 times a day, # 180 tablet, 3 Refills, Maintenance, 01/19/24 9:20:00 EDT, [facility] #[id number], 165, cm, 01/19/24 7:55:00 EDT, Height, 85.45, kg, 12/23/23 9:04:00 EDT, DryWeight Start Date: 01/19/24 Status: Ordered EPINEPHrine 0.3 mg injectable solution = 0.3 mg, Intramuscular, Once, PRN Anaphylactic Reaction, # 1 each, 0 Refills, Soft Stop, 10/22/21 10:11:00 EST, [facility] #[id number], 165, cm, 10/22/21 9:05:00 EST, Height, 89.5, kg, 04/23/2121:43:00 EDT, Dry Weight Start Date: 10/22/21 Status: Ordered escitalopram 10 mg oral tablet 1 tablet = 10 mg, By Mouth, Daily, discontinue citalopram, # 30 tablet, 11 Refills, Maintenance, 01/19/24 8:34:00 EDT, Tablet, [facility] #[id number], Partial fill upon patient request if the prescription is for a schedule II opioid drug., 165, c... Start Date: 01/19/24 Status: Ordered fluticasone 50 mcg/inh nasal spray 2 sprays, Nares, Both, Daily, Use every day during allergy season. While using spray keep head down., # 3 each, 3 Refills, Maintenance, 03/18/24 10:28:00 EDT, [facility] #[id number], ., 2 spraysNares, Both Daily,x90 days,Instr:Use every day duri... Start Date: 03/18/24 Stop Date: 03/13/25 Status: Ordered formoterol 10 mcg/mL inhalation solution See Instructions, USE 2 ML VIA NEBULIZER TWICE DAILY USING A CONTINUOUS FLOW VIA NEBULIZER, # 120 mL, 11 Refills, Maintenance, 01/19/24 8:40:00 EDT, [facility] #[id number], 165, cm, 01/19/24 7:55:00 EDT, Height, 85.45, [...] tablet, 3 Refills, Maintenance, 03/18/24 10:31:00 EDT, [facility] #24033, 165, cm, 01/19/24 7:55:00 EDT, Height, 85.45, kg, 12/23/23 9:04:00 EDT, Dry Weight Start Date: 03/18/24 Stop Date: 03/13/25 Status: Ordered lisinopril 40 mg oral tablet 1 tablet = 40 mg, By Mouth, Daily in AM, 11 AM Decreased dose, # 90 tablet, 3 Refills, Maintenance,03/18/24 10:12:00 EDT, Tablet, [facility] #[id number], 165, cm, 01/19/24 7:55:00 EDT, Height, 85.45, kg, 12/23/23 9:04:00 EDT, Dry Weight Start Date: 03/18/24 Stop Date: 03/13/25 Status: Ordered Matzim LA 180 mg/24 hours oral tablet, extended release 1 tablet = 180 mg, By Mouth, Daily in AM, Take at 11 AM, # 90 tablet, 3 Refills, Maintenance, 03/18/24 9:58:00 EDT, ER Tablet, [facility] #43533, 165, cm, 01/19/24 7:55:00 EDT, Height, 85.45, kg, 12/23/23 9:04:00 EDT, Dry Weight Start Date: 03/18/24 Stop Date: 03/13/25 Status: Ordered MetFORMIN (Eqv-Glucophage XR) 500 mg oral tablet, extended release 1 tablet, By Mouth, 2 times a day with meals, INCREASE DOSE, # 180 tablet, 3 Refills, Maintenance, 12/22/23 16:13:00 EDT, [facility] #[id number], 165, cm, 12/20/23 5:43:00 EDT, Height, 84.5, kg,12/19/23 17:15:00 EDT, Dry Weight Start Date: 12/22/23 Status: Ordered metoprolol 25 mg oral tablet, extended release 25 mg, 1, tablet, By Mouth, Daily, # 30 tablet, Refills 11, Tot. Refills 11, Maintenance, 01/19/24 8:40:00 EDT, Route to Pharmacy Electronically, [facility] #[id number], 165, cm, 01/19/24 7:55:00 EDT, Height, 85.45, kg, 12/23/23 9:04:00 EDT, Dry... Start Date: 01/19/24 Status: Ordered mirtazapine 15 mg oral tablet 0.5 tablet, By Mouth, Daily at bedtime, # 45 tablet, 3 Refills, Maintenance, 03/18/24 10:22:00 EDT,[facility] #[id number], 165, cm, 01/19/24 7:55:00 EDT, Height, 85.45, kg, 12/23/23 9:04:00 EDT, Dry Weight Start Date: 03/18/24 Stop Date: 03/13/25 Status: Ordered montelukast 10 mg oral tablet 1, tablet, By Mouth, Daily at bedtime, SUPPLY., # 90 tablet, Refills 3, Tot. Refills 3, Maintenance, 06/05/23 14:50:00 EDT, Route to Pharmacy Electronically, [facility] #[id number], 160, cm, 03/24/23 10:19:00 EDT, Height, 89.54, kg, 02/09/23 16:4... Start Date: 06/05/23 Status: Ordered Nucala Prefilled Autoinjector 100 mg/mL subcutaneous solution = 100 mg, Subcutaneous Infusion, Every 28 days, j45.40, # 1 each, 11 Refills, Maintenance, 01/12/2414:58:00 EDT, [facility], Partial fill upon patient request if the prescription isfor a schedule II opioid drug., 165, cm, 01/04/24 1... Start Date: 01/13/24 Status: Ordered Afu-rpr-xzdbf medical-grade oxford diabetic shoes, depth or hightop Kar-mve-mjvql medical-grade oxford diabetic shoes, depth or hightop, [...] capsule, 3 Refills, Maintenance, 03/18/24 10:28:00 EDT, [facility] #[id number], 165, cm, 01/19/24 7:55:00 EDT, Height, 85.45, kg, 12/23/23 9:04:00 EDT, Dry Weight Start Date: 03/18/24 Stop Date: 03/13/25 Status: Ordered pravastatin 80 mg oral tablet 1 tablet, By Mouth, Daily, # 90 tablet, 3 Refills, Maintenance, 03/24/23 10:32:00 EDT, [facility] #[id number], 160, cm, 03/24/23 10:19:00 EDT, Height, 89.54, kg, 02/09/23 16:45:00 EDT, Dry Weight Start Date: 03/24/23 Stop Date: 03/18/24 Status: Ordered Premarin Vaginal 0.625 mg/gm cream with applicator See Instructions, APPLY 1/2 GRAM IN THE VAGINA EVERY WEDNESDAY AND WEDNESDAY, # 30 Gm, 11 Refills, Maintenance, 01/19/24 9:20:00 EDT, [facility] #[id number], 30, APPLY 1/2 GRAM IN THE VAGINA [...] in AM, at 11 AM Given by ski maker, Dr. Indio Mason, # 30 tablet, Refills [...] extremities Angolan, # 30 Gm, 2Refills, Maintenance, 02/23/24 8:27:00 EDT, [facility] #[id number], 1 application Topically 3 times a day,Instr:PRN itching ; Apply to lower e... Start Date: 02/23/24 Status: Ordered Wixela Inhub 100 mcg-50 mcg inhalation powder 1 inhalation, Inhalation, 2 times a day, J45..0rinse mouth and throat after use, # 1 each, 5 Refills, Maintenance, 01/26/24 9:28:00 EDT, Powder, [facility] #[id number], Partial fill upon patientrequest if the prescription [...] 5, 6, 7, 8 Confirmed 08/09/06 Active *[phone] [employer] Michelle Cain Confirmed Active Varicose vein Confirmed [...] Team Personnel Name: Haley Gonzalez RN Position: [facility] RN Member Role: Primary Care Nurse Name: Jessica Perrin MD Position: [facility] Physician - Primary Care Member Role: PCP Address: Address: [address] [place] [id number]- Care Team Related Persons Name: SANDY BOYCE Address: [address] [place] [address] Name: COLT BOYCE Address: [address] [place] [address]"
--- OUTSIDE RECORDS SUMMARY | 2024-07-06 12:04 | XMS_ITS | Continuity of Care Document ---
Author Organization [facility] Address [address] [place] [address]- Care Team Providers Care Day Porter Name Role Phone Jessica Perrin MD Primary Care Physician [place] [facility] [place]10[place] - 02/14/[address] [address]- Encounter Diagnosis Radiculopathy, lumbar region(Final) - Discharge Disposition: A-D/C Home Attending Physician: Jessica Perrin MD Admitting Physician: [...] virus vaccine, inactivated 5 07/29/06 Gi javon [id number] 12y+ bivalent booster vax 03/24/23 Given [id number] 12y+ bivalent booster vax 07/28/22 Recorded SARS-CoV-2 mRNA (czsevhj-[id number]) vax 02/17/22 Given SARS-CoV-2 (COVID-19) mRNA BNT-162b2 [...] Refills, Maintenance, 01/19/24 8:32:00 EDT, ER Tablet, [facility] #[id number], Partial fill upon patient request if th... Start Date: 01/19/24 Status: Ordered Albuterol (Eqv-ProAir HFA) 90 mcg/inh inhalation aerosol 2 puffs, Inhalation, Every 6 hours, PRN Wheezing/Shortness of Breath, # 8.5 Gm, 5 Refills, Maintenance, 01/19/24 8:30:00 EDT, [facility] #[id number], If pump is not covered, it can [...] 01/19/24 8:40:00 EDT, Route to Pharmacy Electronically, [id number], [facility] #[id number], 165, cm, 01/19/24 7:55:00 EDT, Height, 85.... Start Date: 01/19/24 Status: Ordered calcium (as citrate)-vitamin D 315 mg-250 intl units oral tablet 2 tablet, By Mouth, 2 times a day, # 360 tablet, 3 Refills, Maintenance, 03/18/24 10:33:00 EDT, [facility] #[id number], 2 tablet By Mouth 2 times a [...] Stop 03/18/24 10:33:00 EDT, 03/24/23 10:33:00 EDT, [facility] #[id number], 160, cm, 03/24/23 10:19:00 EDT, Height, 89.54, kg, 02/09/23 16:45:00 EDT, Dry Weight Start Date: 03/24/23 Stop Date: 03/18/24 Status: Ordered ciclopirox 8% topical solution 1 application, Topically, Daily, as directed to affected area toenails, # 6.6 mL, 11 Refills, Maintenance, 01/19/24 9:20:00 EDT, Solution, [facility] #[id number], ., 1 application Topically Daily,Instr:as directed; to affected area toenails, 165... Start Date: 01/19/24 Status: Ordered Clarinex 5 mg oral tablet 1 tablet = 5 mg, By Mouth, Daily, # 90 tablet, 3 Refills, Maintenance, 03/18/24 10:23:00 EDT, Tablet, [facility] #[id number], 165, cm, 01/19/24 7:55:00 EDT, Height, 85.45, kg, 12/23/23 9:04:00 EDT, Dry Weight Start Date: 03/18/24 Stop Date: 03/13/25 Status: Ordered Clarinex 5 mg oral tablet 1 tablet = 5 mg, By Mouth, Daily, for 90 days, # 90 tablet, 3 Refills, Hard Stop 03/18/24 10:23:00 EDT, 03/24/23 10:23:00 EDT, Tablet, [facility] #[id number], 160, cm, 03/24/23 10:19:00 EDT, Height, 89.54, [...] 11 Refills, Maintenance, 01/19/24 8:42:00 EDT, Gel, [facility] #[id number], ., 165, cm, 01/19/24 7:55:00 EDT, Height, 85.45, kg, 12/23/23 9:04:00 EDT,Dry Weight Start Date: 01/19/24 Stop Date: 07/05/24 Status: Ordered Eliquis 5 mg oral tablet 1 tablet, By Mouth, 2 times a day, # 180 tablet, 3 Refills, Maintenance, 01/19/24 9:20:00 EDT, [facility] #[id number], 165, cm, 01/19/24 7:55:00 EDT, Height, 85.45, kg, 12/23/23 9:04:00 EDT, DryWeight Start Date: 01/19/24 Status: Ordered EPINEPHrine 0.3 mg injectable solution = 0.3 mg, Intramuscular, Once, PRN Anaphylactic Reaction, # 1 each, 0 Refills, Soft Stop, 10/22/21 10:11:00 EST, [facility] #[id number], 165, cm, 10/22/21 9:05:00 EST, Height, 89.5, kg, 04/23/2121:43:00 EDT, Dry Weight Start Date: 10/22/21 Status: Ordered escitalopram 10 mg oral tablet 1 tablet = 10 mg, By Mouth, Daily, discontinue citalopram, # 30 tablet, 11 Refills, Maintenance, 01/19/24 8:34:00 EDT, Tablet, [facility] #[id number], Partial fill upon patient request if the prescription is for a schedule II opioid drug., 165, c... Start Date: 01/19/24 Status: Ordered fluticasone 50 mcg/inh nasal spray 2 sprays, Nares, Both, Daily, Use every day during allergy season. While using spray keep head down., # 3 each, 3 Refills, Maintenance, 03/18/24 10:28:00 EDT, [facility] #[id number], ., 2 spraysNares, Both Daily,x90 days,Instr:Use every day duri... Start Date: 03/18/24 Stop Date: 03/13/25 Status: Ordered formoterol 10 mcg/mL inhalation solution See Instructions, USE 2 ML VIA NEBULIZER TWICE DAILY USING A CONTINUOUS FLOW VIA NEBULIZER, # 120 mL, 11 Refills, Maintenance, 01/19/24 8:40:00 EDT, [facility] #[id number], 165, cm, 01/19/24 7:55:00 EDT, Height, 85.45, [...] ARNOLD Cameron Start Date: 01/19/24 Status: Ordered Lancets See [...] tablet, 3 Refills, Maintenance, 03/18/24 10:31:00 EDT, [facility] #[id number], 165, cm, 01/19/24 7:55:00 EDT, Height, 85.45, kg, 12/23/23 9:04:00 EDT, Dry Weight Start Date: 03/18/24 Stop Date: 03/13/25 Status: Ordered levothyroxine 0.05 mg oral tablet 1 tablet, By Mouth, Daily, for 90 days, # 90 tablet, 3 Refills, Hard Stop 03/18/24 10:31:00 EDT, 03/24/23 10:31:00 EDT, [facility] #[id number], 160, cm, 03/24/23 10:19:00 EDT, Height, 89.54, kg,02/09/23 16:45:00 EDT, Dry Weight Start Date: 03/24/23 Stop Date: 03/18/24 Status: Ordered lisinopril 40 mg oral tablet 1 tablet = 40 mg, By Mouth, Daily in AM, 11 AM Decreased dose, # 90 tablet, 3 Refills, Maintenance,03/18/24 10:12:00 EDT, Tablet, [facility] #[id number], 165, cm, 01/19/24 7:55:00 EDT, Height, 85.45, kg, 12/23/23 9:04:00 EDT, Dry Weight Start Date: 03/18/24 Stop Date: 03/13/25 Status: Ordered lisinopril 40 mg oral tablet 1 tablet = 40 mg, By Mouth, Daily in AM, for 90 days, 11 AM Decreased dose, # 90 tablet, 3 Refills,Hard Stop 03/18/24 10:12:00 EDT, 03/24/23 10:12:00 EDT, Tablet, [facility] #[id number], 160, cm, 03/24/23 9:26:00 EDT, Height, 89.54, kg, ... Start Date: 03/24/23 Stop Date: 03/18/24 Status: Ordered Matzim LA 180 mg/24 hours oral tablet, extended release 1 tablet = 180 mg, By Mouth, Daily in AM, Take at 11 AM, # 90 tablet, 3 Refills, Maintenance, 03/18/24 9:58:00 EDT, ER Tablet, [facility] #[id number], 165, cm, 01/19/24 7:55:00 EDT, Height, 85.45, [...] 9:58:00 EDT, 03/24/23 9:58:00 EDT, ER Tablet, [facility] #[id number], 160, cm, 03/24/23 9:26:00 EDT, H... Start Date: 03/24/23 Stop Date: 03/18/24 Status: Ordered MetFORMIN (Eqv-Glucophage XR) 500 mg oral tablet, extended release 1 tablet, By Mouth, 2 times a day with meals, INCREASE DOSE, # 180 tablet, 3 Refills, Maintenance, 12/22/23 16:13:00 EDT, [facility] #[id number], 165, cm, 12/20/23 5:43:00 EDT, Height, 84.5, kg,12/19/23 17:15:00 EDT, Dry Weight Start Date: 12/22/23 Status: Ordered metoprolol 25 mg oral tablet, extended release 25 mg, 1, tablet, By Mouth, Daily, # 30 tablet, Refills 11, Tot. Refills 11, Maintenance, 01/19/24 8:40:00 EDT, Route to Pharmacy Electronically, [facility] #[id number], 165, cm, 01/19/24 7:55:00 EDT, Height, 85.45, kg, 12/23/23 9:04:00 EDT, Dry... Start Date: 01/19/24 Status: Ordered mirtazapine 15 mg oral tablet 0.5 tablet, By Mouth, Daily at bedtime, # 45 tablet, 3 Refills, Maintenance, 03/18/24 10:22:00 EDT,[facility] #[id number], 165, cm, 01/19/24 7:55:00 EDT, Height, 85.45, kg, 12/23/23 9:04:00 EDT, Dry Weight Start Date: 03/18/24 Stop Date: 03/13/25 Status: Ordered mirtazapine 15 mg oral tablet 0.5 tablet, By Mouth, Daily at bedtime, for 90 days, # 45 tablet, 3 Refills, Hard Stop 03/18/24 10:22:00 EDT, 03/24/23 10:22:00 EDT, [facility] #[id number], 160, cm, 03/24/23 10:19:00 EDT, Height, 89.54, kg, 02/09/23 16:45:00 EDT, Dry Weight Start Date: 03/24/23 Stop Date: 03/18/24 Status: Ordered montelukast 10 mg oral tablet 1, tablet, By Mouth, Daily at bedtime, SUPPLY., # 90 tablet, Refills 3, Tot. Refills 3, Maintenance, 06/05/23 14:50:00 EDT, Route to Pharmacy Electronically, [facility] #[id number], 160, cm, 03/24/23 10:19:00 EDT, Height, 89.54, kg, 02/09/23 16:4... Start Date: 06/05/23 Status: Ordered Nucala Prefilled Autoinjector 100 mg/mL subcutaneous solution = 100 mg, Subcutaneous Infusion, Every 28 days, j45.40, # 1 each, 11 Refills, Maintenance, 01/12/2414:58:00 EDT, [facility], Partial fill upon patient request if the prescription isfor a schedule II opioid drug., 165, cm, 01/04/24 1... Start Date: 01/13/24 Status: Ordered Xdt-jfc-abjkb medical-grade oxford diabetic shoes, depth or hightop Svy-jqv-ctltm medical-grade oxford diabetic shoes, depth or hightop, [...] capsule, 3 Refills, Maintenance, 03/18/24 10:28:00 EDT, [facility] #[id number], 165, cm, 01/19/24 7:55:00 EDT, Height, 85.45, kg, 04/11/24 9:04:00 EDT, Dry Weight Start Date: 03/18/24 Stop Date: 03/13/25 Status: Ordered omeprazole 20 mg oral enteric coated capsule 1 capsule = 20 mg, By Mouth, Daily, for 90 days, 30 minutes before breakfast MD is aware of interaction with citalopram, # 90 capsule, 3 Refills, Hard Stop 03/18/24 10:28:00 EDT, 03/24/23 10:28:00 EDT, [facility] #[id number], 160, cm, 03/24/23 1... Start Date: 03/24/23 Stop Date: 03/18/24 Status: Ordered pravastatin 80 mg oral tablet 1 tablet, By Mouth, Daily, # 90 tablet, 3 Refills, Maintenance, 03/24/23 10:32:00 EDT, [facility] #[id number], 160, cm, 03/24/23 10:19:00 EDT, Height, 89.54, kg, 02/09/23 16:45:00 EDT, Dry Weight Start Date: 03/24/23 Stop Date: 03/18/24 Status: Ordered Premarin Vaginal 0.625 mg/gm cream with applicator See Instructions, APPLY 1/2 GRAM IN THE VAGINA EVERY WEDNESDAY AND WEDNESDAY, # 30 Gm, 11 Refills, Maintenance, 01/19/24 9:20:00 EDT, [facility] #[id number], 30, APPLY 1/2 GRAM IN THE VAGINA [...] in AM, at 11 AM Given by safety manager, Dr. Indio Mason, # 30 tablet, Refills [...] EDT, Height,... 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
--- OUTSIDE RECORDS SUMMARY | 2024-07-06 12:04 | XMS_ITS | Continuity of Care Document ---
Author Organization [facility] Address [address] [place] [address]- Care Team Providers Care Health And Wellness Coordinator Name Role Phone Marychuy MCCLAIN, Jessica Primary Care Physician Encounter [facility] Date(s): 07/13/22 - 08/12/22 [facility] [address] [place] [address]- [place] Allergies, Adverse Reactions, Alerts Substance Reaction [...] Vaccine Date Status Refusal Reason SARS-CoV-2 mRNA (vjamuyq-jrtg-uheop) vax 02/17/22 Given influenza virus vaccine, inactivated [...] tablet, 11 Refills, Maintenance, 05/13/22 11:27:00 EDT, [facility] #[id number], Partial fill upon cherelle... Start Date: 05/13/22 Status: Ordered albuterol 0.083% inhalation solution 3 mL = 2.5 mg, Inhalation, Every 6 hours, # 25 each, 5 Refills, Maintenance, 08/12/22 15:02:00 EST,[facility] #[id number], 165, cm, 06/18/22 13:19:00 EDT, Height, 88.9, kg, 02/09/22 15:14:00 EDT, Dry Weight Start Date: 08/12/22 Stop Date: 02/08/23 Status: Ordered budesonide 0.5 mg/2 mL inhalation suspension 0.5 mg, 2, mL, Neb, 2 times a day, # 120 mL, Refills 5, Tot. Refills 5, Maintenance, 02/11/22 14:27:00 EDT, Suspension, Route to Pharmacy Electronically, [id number], [facility] #[id number], 165, cm, 02/09/22 15:14:00 EDT... Start Date: 02/11/22 Status: Ordered calcium (as citrate)-vitamin D 315 mg-250 intl units oral tablet 2 tablet, By Mouth, 2 times a day, # 360 tablet, 0 Refills, [facility] #[id number], 90, TAKE 2TABLETS BY MOUTH TWICE DAILY, 165, cm, 02/23/22 14:24:00 EDT, Height, 88.9, kg, 02/09/22 15:14:00 EDT, Dry Weight Start Date: 04/01/22 Status: Ordered citalopram 20 mg oral tablet 20 mg, 1, tablet, By Mouth, Daily, # 90 tablet, Refills 3, Tot. Refills 3, Maintenance, 07/08/22 14:31:00 EDT, Route to Pharmacy Electronically, [facility] #[id number], MD is awared of interaction w nicky, 165, cm, 06/18/22 13:19:00 EDT, He... Start Date: 07/08/22 Status: Ordered Clarinex 5 mg oral tablet 1 tablet = 5 mg, By Mouth, Daily, # 90 tablet, 3 Refills, Maintenance, 04/29/22 12:53:00 EDT, Tablet, [facility] #[id number], 165, cm, 02/23/22 14:24:00 EDT, Height, 88.9, [...] 0 Refills, Soft Stop, 10/22/21 10:11:00 EST, [facility] #[id number], 165, cm, 10/22/21 9:05:00 EST, Height, 89.5, kg, 04/23/2121:43:00 EDT, Dry Weight Start Date: 10/22/21 Status: Ordered fluticasone 50 mcg/inh nasal spray See Instructions, SPRAY 2 TIMES IN EACH NOSTRILS EVERY DAY. NEEDED FOR ALLERGY SEASON. WHEN SPRAYING KEEP HEAD DOWN, # 16 Gm, 11 Refills, 02/17/22 13:14:00 EDT, [facility] #[id number], 30, SPRAY 2 TIMES IN EACH NOSTRILS EVERY DAY. NEEDED FO... Start Date: 02/17/22 Status: Ordered formoterol 10 mcg/mL inhalation solution 2 mL = 20 mcg, Inhalation, 2 times a day, using a continuous flow nebulizer, # 60 each, 5 Refills, Maintenance, 02/11/22 14:28:00 EDT, Solution, [facility] #[id number], 165, cm, 02/09/22 15:14:00 EDT, Height, 88.9, [...] 06/18/22 13:56:00 EDT, Route to Pharmacy Electronically, [facility] #[id number], Partial fill upon patient request if... Start Date: 06/18/22 Status: Ordered hydrochlorothiazide 12.5 mg oral tablet 1 tablet = 12.5 mg, By Mouth, Daily, discontinue HCTZ/lisinopril 25mg /20mg, # 30 tablet, 11 Refills, Maintenance, 10/29/21 13:48:00 EST, Tablet, [facility] #[id number], 165, cm, 10/29/21 12:16:00 EST, Height, 89.5, kg, 04/23/21 21:43:00 EDT, Dr... Start Date: 10/29/21 Status: Ordered levothyroxine 0.05 mg oral tablet 1 tablet, By Mouth, Daily, # 90 tablet, 1 Refills, Maintenance, 05/20/22 16:09:00 EDT, [facility] #[id number], 165, cm, 05/20/22 16:02:00 EDT, Height, 88.9, kg, 02/09/22 15:14:00 EDT, Dry Weight Start Date: 05/20/22 Status: Ordered lisinopril 40 mg oral tablet 1 tablet = 40 mg, By Mouth, Daily, discontinue HCTZ/lisinopril 25mg /20mg, # 30 tablet, 11 Refills,Maintenance, 10/29/21 13:47:00 EST, Tablet, [facility] #[id number], Partial fill upon patient request if the prescription is for a schedule II op... Start Date: 10/29/21 Status: Ordered Matzim LA 360 mg/24 hours oral tablet, extended release 1 tablet, By Mouth, Daily, # 90 tablet, 3 Refills, 02/17/22 13:08:00 EDT, [facility] #[id number], 165, cm, 02/17/22 12:49:00 EDT, Height, 88.9, kg, 02/09/22 15:14:00 EDT, Dry Weight Start Date: 02/17/22 Status: Ordered metFORMIN 500 mg oral tablet 1 tablet, By Mouth, 2 times a day, # 180 tablet, 3 Refills, Maintenance, 10/13/21 14:33:00 EST, [facility] #[id number], 165, cm, 04/23/21 21:43:00 EDT, Height, 89.5, kg, 04/23/21 21:43:00 EDT, Dry Weight Start Date: 10/13/21 Status: Ordered mirtazapine 15 mg oral tablet 0.5 tablet, By Mouth, Daily at bedtime, DECREASED DOSE., # 45 tablet, 1 Refills, Maintenance, 05/12/22 9:17:00 EDT, [facility] #[id number], 165, cm, 02/23/22 14:24:00 EDT, Height, 88.9, kg, 02/09/22 15:14:00 EDT, Dry Weight Start Date: 05/12/22 Status: Ordered montelukast 10 mg oral tablet 1, tablet, By Mouth, Daily at bedtime, SUPPLY., # 90 tablet, Refills 1, Maintenance, 06/18/22 14:04:00 EDT, [id number], 165, cm, 06/18/22 13:19:00 EDT, Height, 88.9, kg, 02/09/22 15:14:00 EDT, Dry Weight Start Date: 06/18/22 Stop Date: 09/16/22 Status: Ordered Yzi-myw-pdrdw medical-grade oxford diabetic shoes, depth or hightop Lxu-cxn-mcjlv medical-grade oxford diabetic shoes, depth or hightop, [...] Refills, Maintenance, 12/18/21 15:48:00 EDT, EC Capsule, [facility] #[id number], 165, cm, 10/29/21 12:16:00 EST,... Start Date: 12/18/21 Status: Ordered Paxlovid 150 mg-100 mg (150 mg-100 mg Dose) oral tablet See Instructions, Three tablets by mouth BID as per package directions, # 1 pack/packet, 0 Refills,Acute 06/11/23 9:38:00 EDT, 06/10/22 9:37:00 EDT, [facility] #[id number], Partial fill upon patient request if the prescription is for a schedule... Start Date: 06/10/22 Stop Date: 06/11/23 Status: Ordered pravastatin 80 mg oral tablet 1 tablet, By Mouth, Daily, # 90 tablet, 1 Refills, Maintenance, 06/27/22 12:04:00 EDT, [facility] #[id number], 165, cm, 06/18/22 13:19:00 EDT, Height, 88.9, kg, 02/09/22 15:14:00 EDT, Dry Weight Start Date: 06/27/22 Status: Ordered Premarin Vaginal 0.625 mg/gm cream with applicator See Instructions, APPLY 1/2 GRAM IN THE VAGINA EVERY WEDNESDAY AND WEDNESDAY, # 30 Gm, 11 Refills, Maintenance, 05/11/22 14:58:00 EDT, [facility] #[id number], 30, APPLY 1/2 GRAM IN THE VAGINA [...] Gm, 5 Refills, Maintenance, 05/13/22 11:27:00 EDT, [id number], Partial fill upon patient request if the [...] 4, 5, 6, 7 Confirmed 08/09/06 Active *[id number] 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
--- OUTSIDE RECORDS SUMMARY | 2024-07-06 12:04 | XMS_ITS | Continuity of Care Document ---
Author Organization [facility] Address [address] [place] [address]- Care Team Providers Care Tool Distributor Name Role Phone Marychuy MCCLAIN, Jessica Primary Care Physician Encounter [facility] Date(s): 03/18/20 - 06/12/[address] [address]- [facility] Discharge Disposition: A-D/C Home Attending Physician: Jessica Perrin MD Admitting Physician: Jessica Perrin MD Referring Physician: Jessica Perrin MD Allergies, Adverse Reactions, Alerts Substance Reaction Severity Status dexamethasone Swelling of throat 2 -NOV-2015 19:14:30<$> Persistent Mild Active methylPREDNISolone Increase blood [...] vaccine 12/25/14 Given Zoster Vaccine Live 6 3/11/13 Given tetanus-diphtheria toxoids (Td) 7 11/20/10 Given [...] Refills, Maintenance, 08/30/19 9:25:00 EST, ER Tablet, [facility] #[id number], 162.5, cm, 07/25/19 9:45:00 ES... Start Date: [...] 02/02/20 16:28:00 EDT, Route to Pharmacy Electronically, [facility] #[id number], 165, cm, 11/03/19 18:19:00 EST, Height, 88, kg, 11/03/19 18:19:00... Start Date: 02/02/20 Status: Ordered calcium (as citrate)-vitamin D 315 mg-250 intl units oral tablet 2 tablet, By Mouth, 2 times a day, Tej, # 360 tablet, 3 Refills, Maintenance, 02/02/20 16:28:00 EDT, Tablet, [facility] #[id number], 2 tablet By Mouth 2 times a day,x90 days,Instr:Tej, 165, cm, 11/03/19 18:19:00 EST, Height, 88, kg, 11/03/19 18... Start Date: 02/02/20 Stop Date: 01/27/21 Status: Ordered celecoxib 100 mg oral capsule 1 capsule = 100 mg, By Mouth, 2 times a day, PRN knee pain, # 60 capsule, 3 Refills, Maintenance, 05/28/20 12:49:00 EDT, Capsule, [facility] #[id number], 165, cm, 11/03/19 18:19:00 EST, Height, 88, kg, 11/03/19 18:19:00 EST, Dry Weight Start Date: 05/28/20 Status: Ordered citalopram 20 mg oral tablet 20 mg, 1, tablet, By Mouth, Daily, # 90 tablet, Refills 3, Tot. Refills 3, Maintenance, 07/18/19 10:44:28 EST, Route to Pharmacy Electronically, [id number], [email or web address] #[email or web address] is awared of interaction w prilosec Start Date: 07/18/19 Status: Ordered Colace sodium 100 mg oral capsule 100 mg, 1, capsule, By Mouth, 2 times a day, PRN, with plenty of water, # 180 capsule, Refills 3, Tot. Refills 3, Maintenance, as needed for constipation, 08/30/19 9:25:00 EST, Route to Pharmacy Electronically, [facility] #[id number], 162.5, cm,... Start Date: 08/30/19 Status: Ordered [...] Gm, 11 Refills, Maintenance, 10/25/19 11:57:00 EST, [email or web address] #[id number], dispe... Start Date: 10/25/19 Status: Ordered hydrALAZINE [...] 3 Refills, Maintenance, 09/04/19 22:49:00 EST, Tablet, [facility] #[id number], 90 days, 1 tablet By Mouth Daily,Instr:discontinue HCTZ 12.5/lisnopril 20mg, 162.5, cm, 1... Start Date: 09/04/19 Status: Ordered Incruse Ellipta 62.5 mcg/inh inhalation powder = 62.5 mcg, Inhalation, Every 24 hours, doses should be taken at least 24 hours apart discontinue Tudorza, # 30 each, 11 Refills, Maintenance, 08/30/19 9:23:00 EST, [facility] #[id number], 162.5, cm, 07/25/19 9:45:00 EST, Height, 85.9, [...] Daily, 90 days supply, # 90 tablet, 0 Refills, Maintenance, 06/12/20 14:12:00 EDT, [facility] #[id number], 165, cm, 11/03/19 18:19:00 EST, Height, 88, kg, 11/03/19 18:19:00 EST, Dry Weight Start Date: 06/12/20 Status: Ordered loratadine 10 mg oral tablet 10 mg, 1, tablet, By Mouth, Daily, PRN, # 90 tablet, Refills 3, Tot. Refills 3, Maintenance, as needed for allergy symptoms, 08/30/19 9:25:00 EST, Route to Pharmacy Electronically, [facility] #[id number], 162.5, cm, 07/25/19 9:45:00 EST, Height,... Start Date: 08/30/19 Status: Ordered metFORMIN 500 mg oral tablet 1 tablet = 500 mg, By Mouth, 2 times a day, discontinue metformin 1000mg, # 180 tablet, 1 Refills, Maintenance, 12/21/19 7:30:00 EDT, Tablet, [email or web address] #[id number], 165, cm, 11/03/19 18:19:00 EST, Height, 88, kg, 11/03/19 18:19:00 EST, Dry Weight Start Date: 12/21/19 Status: Ordered Ykm-ael-mohvx medical-grade oxford diabetic shoes, depth or hightop Duk-rmb-myqof medical-grade oxford diabetic shoes, depth or hightop, [...] 3 Refills, Maintenance, 08/30/19 9:25:00 EST, Tablet, [email or web address] #[email or web address], 162.5, cm, 07/25/19 9:45:00 EST, Height, 85.9, kg, 199:45:00 EST, Dry Weight Start Date: 08/30/19 Status: Ordered Premarin Vaginal 0.625 mg/gm cream with applicator = 0.5 Gm, Vaginally, Every Wednesday and , # 42.5 Gm, 11 Refills, Maintenance, 02/02/20 16:27:00 EDT, [email or web address] #[id number], discontinue estradiol 10mcg vaginal, 0.5 Gm Vaginally Every Wednesday and , 165, cm, 11/03/19 18:19:00 EST,... Start Date: 02/02/20 Status: Ordered PriLOSEC OTC 20 mg oral delayed release tablet 1 tablet = 20 mg, By Mouth, Daily, Take 30 mins before breakfast, # 90 tablet, 3 Refills, Maintenance, 02/02/20 16:28:00 EDT, [email or web address] #[id number], is awared of interaction with citalopram,165, cm, 11/03/19 18:19:00 EST, Height, 88, kg,... Start Date: 02/02/20 Status: Ordered Remeron 15 mg oral tablet 0.5 tablet = 7.5 mg, By Mouth, Daily at bedtime, # 45 tablet, 1 Refills, Maintenance, 06/05/20 9:34:00 EDT, Tablet, [facility] #[id number], 165, cm, 11/03/19 18:19:00 EST, Height, 88, [...] 06/28/19 7:33:11 EDT, Route to Pharmacy Electronically, [id number], [email or web address] #[id number] Start Date: 06/28/19 Status: Ordered Sinus rinse [...] Gm, 5 Refills, Maintenance, 04/04/20 12:19:00 EDT, [email or web address] #[id number]... 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
--- OUTSIDE RECORDS SUMMARY | 2024-07-06 12:04 | XMS_ITS | Continuity of Care Document ---
Author Organization [facility] Address [address] [place] [address]- Care Team Providers Care Mannequin Maker Name Role Phone Marychuy MCCLAIN, Jessica Primary Care Physician [facility] Date[facility]): 09/[facility]/22 - 10/10/22 [facility]/[place] [address]- [place] Allergies, Adverse Reactions, Alerts Substance Reaction [...] Vaccine Date Status Refusal Reason SARS-CoV-2 mRNA (wpqraeu-shpa-kgrrl) vax 02/17/22 Given influenza virus vaccine, inactivated [...] tablet, 11 Refills, Maintenance, 05/13/22 11:27:00 EDT, [facility] #[id number], Partial fill upon cherelle... Start Date: 05/13/22 Status: Ordered albuterol 0.083% inhalation solution 3 mL = 2.5 mg, Inhalation, Every 6 hours, # 25 each, 5 Refills, Maintenance, 08/12/22 15:02:00 EST,[facility] #[id number], 165, cm, 06/18/22 13:19:00 EDT, Height, 88.9, kg, 02/09/22 15:14:00 EDT, Dry Weight Start Date: 08/12/22 Stop Date: 02/08/23 Status: Ordered budesonide 0.5 mg/2 mL inhalation suspension 0.5 mg, 2, mL, Neb, 2 times a day, # 120 mL, Refills 11, Tot. Refills 11, Maintenance, 08/13/22 15:24:00 EST, Suspension, Route to Pharmacy Electronically, [id number], [facility] #[id number], 165, cm, 06/18/22 13:19:00 E... Start Date: 08/13/22 Status: Ordered calcium (as citrate)-vitamin D 315 mg-250 intl units oral tablet 2 tablet, By Mouth, 2 times a day, # 360 tablet, 0 Refills, Maintenance, 09/11/22 8:59:00 EST, [facility] #[id number], 90, TAKE 2 TABLETS BY MOUTH TWICE DAILY, 165, cm, 06/18/22 13:19:00 EDT, Height, 88.9, kg, 02/09/22 15:14:00 EDT, Dry Weight Start Date: 09/11/22 Status: Ordered citalopram 20 mg oral tablet 20 mg, 1, tablet, By Mouth, Daily, # 90 tablet, Refills 3, Tot. Refills 3, Maintenance, 07/08/22 14:31:00 EDT, Route to Pharmacy Electronically, [facility] #[id number], MD is awared of interaction w nicky, 165, cm, 06/18/22 13:19:00 EDT, He... Start Date: 07/08/22 Status: Ordered Clarinex 5 mg oral tablet 1 tablet = 5 mg, By Mouth, Daily, # 90 tablet, 3 Refills, Maintenance, 04/29/22 12:53:00 EDT, Tablet, [facility] #[id number], 165, cm, 02/23/22 14:24:00 EDT, Height, 88.9, [...] 0 Refills, Soft Stop, 10/22/21 10:11:00 EST, [facility] #[id number], 165, cm, 10/22/21 9:05:00 EST, Height, 89.5, kg, 04/23/2121:43:00 EDT, Dry Weight Start Date: 10/22/21 Status: Ordered fluticasone 50 mcg/inh nasal spray See Instructions, SPRAY 2 TIMES IN EACH NOSTRILS EVERY DAY. NEEDED FOR ALLERGY SEASON. WHEN SPRAYING KEEP HEAD DOWN, # 16 Gm, 11 Refills, 02/17/22 13:14:00 EDT, [facility] #[id number], 30, SPRAY 2 TIMES IN EACH NOSTRILS [...] 06/18/22 13:56:00 EDT, Route to Pharmacy Electronically, [facility] #[id number], Partial fill upon patient request if... Start Date: 06/18/22 Status: Ordered levothyroxine 0.05 mg oral tablet 1 tablet, By Mouth, Daily, # 30 tablet, 11 Refills, Maintenance, 09/30/22 12:56:00 EST, [facility] #[id number], 163, cm, 09/30/22 11:48:00 EST, Height, 92.8, kg, 09/24/22 22:19:00 EST, Dry Weight Start Date: 09/30/22 Status: Ordered lisinopril 40 mg oral tablet 1 tablet = 40 mg, By Mouth, 2 times a day, increase dose discontinue HCTZ 12.5mg, # 60 tablet, 11 Refills, Maintenance, 09/30/22 12:54:00 EST, Tablet, [facility] #[id number], 163, cm, 09/30/22 11:48:00 EST, Height, 92.8, kg, 09/24/22 22:19:00... Start Date: 09/30/22 Stop Date: 09/25/23 Status: Ordered Matzim LA 360 mg/24 hours oral tablet, extended release 1 tablet, By Mouth, Daily, # 90 tablet, 3 Refills, 02/17/22 13:08:00 EDT, [facility] #[id number], 165, cm, 02/17/22 12:49:00 EDT, Height, 88.9, kg, 02/09/22 15:14:00 EDT, Dry Weight Start Date: 02/17/22 Status: Ordered metFORMIN 500 mg oral tablet, extended release 1 tablet = 500 mg, By Mouth, Daily in AM, discontinue metformin 500mg with meal, # 30 tablet, 11 Refills, Maintenance, 09/30/22 12:51:00 EST, ER Tablet, [facility] #[id number], 163, cm, 09/30/2310:48:00 EST, Height, 92.8, kg, 09/24/22 22:1... Start Date: 09/30/22 Status: Ordered mirtazapine 15 mg oral tablet 0.5 tablet, By Mouth, Daily at bedtime, DECREASED DOSE., # 45 tablet, 1 Refills, Maintenance, 05/12/22 9:17:00 EDT, [facility] #[id number], 165, cm, 02/23/22 14:24:00 EDT, Height, 88.9, kg, 02/09/22 15:14:00 EDT, Dry Weight Start Date: 05/12/22 Status: Ordered montelukast 10 mg oral tablet 1, tablet, By Mouth, Daily at bedtime, SUPPLY., # 90 tablet, Refills 1, Maintenance, 06/18/22 14:04:00 EDT, Route to Pharmacy Electronically, [facility] #[id number], 165, cm, 06/18/22 13:19:00 EDT, Height, 88.9, kg, 02/09/22 15:14:00 EDT, Dry Weight Start Date: 06/18/22 Stop Date: 09/16/22 Status: Ordered Tag-dus-tkovm medical-grade oxford diabetic shoes, depth or hightop Dct-oyf-oyhqz medical-grade oxford diabetic shoes, depth or hightop, [...] Refills, Maintenance, 12/18/21 15:48:00 EDT, EC Capsule, [facility] #[id number], 165, cm, 10/29/21 12:16:00 EST,... Start Date: 12/18/21 Status: Ordered pravastatin 80 mg oral tablet 1 tablet, By Mouth, Daily, # 90 tablet, 1 Refills, Maintenance, 06/27/22 12:04:00 EDT, [facility] #[id number], 165, cm, 06/18/22 13:19:00 EDT, Height, 88.9, kg, 02/09/22 15:14:00 EDT, Dry Weight Start Date: 06/27/22 Status: Ordered Premarin Vaginal 0.625 mg/gm cream with applicator See Instructions, APPLY 1/2 GRAM IN THE VAGINA EVERY WEDNESDAY AND WEDNESDAY, # 30 Gm, 11 Refills, Maintenance, 05/11/22 14:58:00 EDT, [facility] #[id number], 30, APPLY 1/2 GRAM IN THE VAGINA [...] insuficiency I87... Start Date: 05/13/22 Status: Ordered Problem List Condition Confirmation Course [...] 4, 5, 6, 7 Confirmed 08/09/06 Active *[id number] Shank Sander Francis Caity Confirmed Active Varicose vein Confirmed [...] Team Personnel Name: Haley Gonzalez RN Position: [facility] RN Member Role: Primary Care Nurse Name: Jessica Perrin MD Position: [facility] Primary Care Physician Member Role: PCP Address: Address: [address] [place] [address]- Care Team Related Persons Name: SANDY BOYCE Address: home [address] [place] [address] Name: COLT BOYCE Address: home [address] [place] [address]
--- OUTSIDE RECORDS SUMMARY | 2024-07-06 12:04 | XMS_ITS | Continuity of Care Document ---
Author Organization [facility] Address [address] [place] [address]- Care Team Providers Care Soap Inspector Name Role Phone Marychuy MCCLAIN, Jessica Primary Care Physician [facility] Date(s): 03/17/24 - 04/16/24 [facility]/[address] [address]- Allergies, Adverse Reactions, Alerts Substance Reaction Severity [...] virus vaccine, inactivated 5 07/29/06 Gi javon [id number] 12y+ bivalent booster vax 03/24/23 Given [id number] 12y+ bivalent booster vax 07/28/22 Recorded SARS-CoV-2 mRNA (saraurn-hdla-jpnmp) vax 02/17/22 Given SARS-CoV-2 (COVID-19) mRNA BNT-162b2 [...] Refills, Maintenance, 01/19/24 8:32:00 EDT, ER Tablet, [facility] #[id number], Partial fill upon patient request if th... Start Date: 01/19/24 Status: Ordered Albuterol (Eqv-ProAir HFA) 90 mcg/inh inhalation aerosol 2 puffs, Inhalation, Every 6 hours, PRN Wheezing/Shortness of Breath, # 8.5 Gm, 5 Refills, Maintenance, 01/19/24 8:30:00 EDT, [facility] #[id number], If pump is not covered, it can [...] 01/19/24 8:40:00 EDT, Route to Pharmacy Electronically, [id number], [facility] #[id number], 165, cm, 01/19/24 7:55:00 EDT, Height, 85.... Start Date: 01/19/24 Status: Ordered calcium (as citrate)-vitamin D 315 mg-250 intl units oral tablet 2 tablet, By Mouth, 2 times a day, # 360 tablet, 3 Refills, Maintenance, 03/18/24 10:33:00 EDT, [facility] #[id number], 2 tablet By Mouth 2 times a day,x90 days, 165, cm, 01/19/24 7:55:00 EDT, Height, 85.45, kg, 12/23/23 9:04:00 EDT, Dry Weight Start Date: 03/18/24 Stop Date: 03/13/25 Status: Ordered ciclopirox 8% topical solution 1 application, Topically, Daily, as directed to affected area toenails, # 6.6 mL, 11 Refills, Maintenance, 01/19/24 9:20:00 EDT, Solution, [facility] #[id number], ., 1 application Topically Daily,Instr:as directed; to affected area toenails, 165... Start Date: 01/19/24 Status: Ordered Clarinex 5 mg oral tablet 1 tablet = 5 mg, By Mouth, Daily, # 90 tablet, 3 Refills, Maintenance, 03/18/24 10:23:00 EDT, Tablet, [facility] #[id number], 165, cm, 01/19/24 7:55:00 EDT, Height, 85.45, [...] 11 Refills, Maintenance, 01/19/24 8:42:00 EDT, Gel, [facility] #86110, ., 165, cm, 01/19/24 7:55:00 EDT, Height, 85.45, kg, 12/23/23 9:04:00 EDT,Dry Weight Start Date: 01/19/24 Stop Date: 07/05/24 Status: Ordered Eliquis 5 mg oral tablet 1 tablet, By Mouth, 2 times a day, # 180 tablet, 3 Refills, Maintenance, 01/19/24 9:20:00 EDT, [facility] #[id number], 165, cm, 01/19/24 7:55:00 EDT, Height, 85.45, kg, 12/23/23 9:04:00 EDT, DryWeight Start Date: 01/19/24 Status: Ordered EPINEPHrine 0.3 mg injectable solution = 0.3 mg, Intramuscular, Once, PRN Anaphylactic Reaction, # 1 each, 0 Refills, Soft Stop, 10/22/21 10:11:00 EST, [facility] #[id number], 165, cm, 10/22/21 9:05:00 EST, Height, 89.5, kg, 04/23/2121:43:00 EDT, Dry Weight Start Date: 10/22/21 Status: Ordered escitalopram 10 mg oral tablet 1 tablet = 10 mg, By Mouth, Daily, discontinue citalopram, # 30 tablet, 11 Refills, Maintenance, 01/19/24 8:34:00 EDT, Tablet, [facility] #[id number], Partial fill upon patient request if the prescription is for a schedule II opioid drug., 165, c... Start Date: 01/19/24 Status: Ordered fluticasone 50 mcg/inh nasal spray 2 sprays, Nares, Both, Daily, Use every day during allergy season. While using spray keep head down., # 3 each, 3 Refills, Maintenance, 03/18/24 10:28:00 EDT, [facility] #[id number], ., 2 spraysNares, Both Daily,x90 days,Instr:Use every day duri... Start Date: 03/18/24 Stop Date: 03/13/25 Status: Ordered formoterol 10 mcg/mL inhalation solution See Instructions, USE 2 ML VIA NEBULIZER TWICE DAILY USING A CONTINUOUS FLOW VIA NEBULIZER, # 120 mL, 11 Refills, Maintenance, 01/19/24 8:40:00 EDT, [facility] #[id number], 165, cm, 01/19/24 7:55:00 EDT, Height, 85.45, kg, 12/23/23 9:04:00 EDT [facility].. Start Date: 01/19/24 Status: Ordered hydrALAZINE 25 [...] E11.9 One Touch Damaris, DM type 2, 01/19/24 9:20:00 EDT, Compound, 165, cm, 01/19/24 7:55:00 EDT, Height, 85.45, kg, 04... Start Date: 01/19/24 Status: Ordered levothyroxine 0.05 mg oral tablet 1 tablet, By Mouth, Daily, # 90 tablet, 3 Refills, Maintenance, 03/18/24 10:31:00 EDT, [facility] #[id number], 165, cm, 01/19/24 7:55:00 EDT, Height, 85.45, kg, 12/23/23 9:04:00 EDT, Dry Weight Start Date: 03/18/24 Stop Date: 03/13/25 Status: Ordered lisinopril 40 mg oral tablet 1 tablet = 40 mg, By Mouth, Daily in AM, 11 AM Decreased dose, # 90 tablet, 3 Refills, Maintenance,03/18/24 10:12:00 EDT, Tablet, [facility] #[id number], 165, cm, 01/19/24 7:55:00 EDT, Height, 85.45, kg, 12/23/23 9:04:00 EDT, Dry Weight Start Date: 03/18/24 Stop Date: 03/13/25 Status: Ordered Matzim LA 180 mg/24 hours oral tablet, extended release 1 tablet = 180 mg, By Mouth, Daily in AM, Take at 11 AM, # 90 tablet, 3 Refills, Maintenance, 03/18/24 9:58:00 EDT, ER Tablet, [facility] #[id number], 165, cm, 01/19/24 7:55:00 EDT, Height, 85.45, kg, 12/23/23 9:04:00 EDT, Dry Weight Start Date: 03/18/24 Stop Date: 03/13/25 Status: Ordered MetFORMIN (Eqv-Glucophage XR) 500 mg oral tablet, extended release 1 tablet, By Mouth, 2 times a day with meals, INCREASE DOSE, # 180 tablet, 3 Refills, Maintenance, 12/22/23 16:13:00 EDT, [facility] #[id number], 165, cm, 12/20/23 5:43:00 EDT, Height, 84.5, kg,12/19/23 17:15:00 EDT, Dry Weight Start Date: 12/22/23 Status: Ordered metoprolol 25 mg oral tablet, extended release 25 mg, 1, tablet, By Mouth, Daily, # 30 tablet, Refills 11, Tot. Refills 11, Maintenance, 01/19/24 8:40:00 EDT, Route to Pharmacy Electronically, [facility] #[id number], 165, cm, 01/19/24 7:55:00 EDT, Height, 85.45, kg, 12/23/23 9:04:00 EDT, Dry... Start Date: 01/19/24 Status: Ordered mirtazapine 15 mg oral tablet 0.5 tablet, By Mouth, Daily at bedtime, # 45 tablet, 3 Refills, Maintenance, 03/18/24 10:22:00 EDT,[facility] #[id number], 165, cm, 01/19/24 7:55:00 EDT, Height, 85.45, kg, 12/23/23 9:04:00 EDT, Dry Weight Start Date: 03/18/24 Stop Date: 03/13/25 Status: Ordered montelukast 10 mg oral tablet 1, tablet, By Mouth, Daily at bedtime, SUPPLY., # 90 tablet, Refills 3, Tot. Refills 3, Maintenance, 06/05/23 14:50:00 EDT, Route to Pharmacy Electronically, [facility] #[id number], 160, cm, 03/24/23 10:19:00 EDT, Height, 89.54, kg, 02/09/23 16:4... Start Date: 06/05/23 Status: Ordered Nucala Prefilled Autoinjector 100 mg/mL subcutaneous solution = 100 mg, Subcutaneous Infusion, Every 28 days, j45.40, # 1 each, 11 Refills, Maintenance, 01/12/2414:58:00 EDT, [facility], Partial fill upon patient request if the prescription isfor a schedule II opioid drug., 165, cm, 01/04/24 1... Start Date: 01/13/24 Status: Ordered Hqp-zfv-ighov medical-grade oxford diabetic shoes, depth or hightop Igv-jgj-sejqw medical-grade oxford diabetic shoes, depth or hightop, [...] capsule, 3 Refills, Maintenance, 03/18/24 10:28:00 EDT, [facility] #[id number], 165, cm, 01/19/24 7:55:00 EDT, Height, 85.45, kg, 12/23/23 9:04:00 EDT, Dry Weight Start Date: 03/18/24 Stop Date: 03/13/25 Status: Ordered pravastatin 80 mg oral tablet 1 tablet, By Mouth, Daily, # 90 tablet, 3 Refills, Maintenance, 03/24/23 10:32:00 EDT, [facility] #[id number], 160, cm, 03/24/23 10:19:00 EDT, Height, 89.54, kg, 02/09/23 16:45:00 EDT, Dry Weight Start Date: 03/24/23 Stop Date: 03/18/24 Status: Ordered Premarin Vaginal 0.625 mg/gm cream with applicator See Instructions, APPLY 1/2 GRAM IN THE VAGINA EVERY WEDNESDAY AND WEDNESDAY, # 30 Gm, 11 Refills, Maintenance, 01/19/24 9:20:00 EDT, [facility] #[id number], 30, APPLY 1/2 GRAM IN THE VAGINA [...] in AM, at 11 AM Given by grinder operator, Dr. Indio Mason, # 30 tablet, [...] day, PRN itching Apply to lower extremities Tristanian, # 30 Gm, 2Refills, Maintenance, 02/23/24 8:27:00 EDT, [facility] #77873, 1 application Topically 3 times a day,Instr:PRN itching ; Apply to lower e... Start Date: 02/23/24 Status: Ordered Wixela Inhub 100 mcg-50 mcg inhalation powder 1 inhalation, Inhalation, 2 times a day, J45..0rinse mouth and throat after use, # 1 each, 5 Refills, Maintenance, 01/26/24 9:28:00 EDT, Powder, [facility] #[id number], Partial fill upon patientrequest if the prescription [...] 5, 6, 7, 8 Confirmed 08/09/06 Active *[id number] Button Sawyer Michelle Cain Confirmed Active Varicose vein Confirmed [...] Care Nurse Name: Jessica Perrin MD Position: S Physician - Primary Care Member Role: PCP Address: Address: [address] [place] [address]- Care Team Related Persons Name: SANDY BOYCE Address: home [address] [place] [address] Name: BOYCECOLT Address: home [address] [place] [address]
--- OUTSIDE RECORDS SUMMARY | 2024-07-06 12:04 | XMS_ITS | Continuity of Care Document ---
Author Organization [facility] Address [address] [place] [address]- Care Team Providers Care Theater Manager Name Role Phone Marychuy MCCLAIN, Jessica Primary Care Physician [facility] Date[facility]s): 06/09/22 - 07/09/22 [facility]/[place] [address]- [place] Allergies, Adverse Reactions, Alerts Substance Reaction [...] Vaccine Date Status Refusal Reason SARS-CoV-2 mRNA (rcpwroq-mqdi-euvdy) vax 02/17/22 Given influenza virus vaccine, inactivated [...] Gi javon SARS-CoV-2 (COVID-19) mRNA BNT-162b2 vac 10/11/21 Recorded SARS-CoV-2 (COVID-19) mRNA BNT-162b2 vac 11/16/20 [...] tablet, 11 Refills, Maintenance, 05/13/22 11:27:00 EDT, [facility] #[id number], Partial fill upon cherelle... Start Date: 05/13/22 Status: Ordered albuterol 0.083% inhalation solution 3 mL = 2.5 mg, Inhalation, Every 6 hours, # 25 each, 2 Refills, Maintenance, 05/13/22 11:31:00 EDT,[facility] #[id number], 165, cm, 05/13/22 10:23:00 EDT, Height, 88.9, kg, 02/09/22 15:14:00 EDT, Dry Weight Start Date: 05/13/22 Stop Date: 08/11/22 Status: Ordered budesonide 0.5 mg/2 mL inhalation suspension 0.5 mg, 2, mL, Neb, 2 times a day, # 120 mL, Refills 5, Tot. Refills 5, Maintenance, 02/11/22 14:27:00 EDT, Suspension, Route to Pharmacy Electronically, [id number], [facility] #[id number], 165, cm, 02/09/22 15:14:00 EDT... Start Date: 02/11/22 Status: Ordered calcium (as citrate)-vitamin D 315 mg-250 intl units oral tablet 2 tablet, By Mouth, 2 times a day, # 360 tablet, 0 Refills, [facility] #[id number], 90, TAKE 2TABLETS BY MOUTH TWICE DAILY, 165, cm, 02/23/22 14:24:00 EDT, Height, 88.9, kg, 02/09/22 15:14:00 EDT, Dry Weight Start Date: 04/01/22 Status: Ordered citalopram 20 mg oral tablet 20 mg, 1, tablet, By Mouth, Daily, # 90 tablet, Refills 3, Tot. Refills 3, Maintenance, 07/08/22 14:31:00 EDT, Route to Pharmacy Electronically, [facility] #[id number], is awared of interaction w nicky, 165, cm, 06/18/22 13:19:00 EDT, He... Start Date: 07/08/22 Status: Ordered Clarinex 5 mg oral tablet 1 tablet = 5 mg, By Mouth, Daily, # 90 tablet, 3 Refills, Maintenance, 04/29/22 12:53:00 EDT, Tablet, [facility] #[id number], 165, cm, 02/23/22 14:24:00 EDT, Height, 88.9, [...] 0 Refills, Soft Stop, 10/22/21 10:11:00 EST, [facility] #[id number], 165, cm, 10/22/21 9:05:00 EST, Height, 89.5, kg, 04/23/2121:43:00 EDT, Dry Weight Start Date: 10/22/21 Status: Ordered fluticasone 50 mcg/inh nasal spray See Instructions, SPRAY 2 TIMES IN EACH NOSTRILS EVERY DAY. NEEDED FOR ALLERGY SEASON. WHEN SPRAYING KEEP HEAD DOWN, # 16 Gm, 11 Refills, 02/17/22 13:14:00 EDT, [facility] #[id number], 30, SPRAY 2 TIMES IN EACH NOSTRILS EVERY DAY. NEEDED FO... Start Date: 02/17/22 Status: Ordered formoterol 10 mcg/mL inhalation solution 2 mL = 20 mcg, Inhalation, 2 times a day, using a continuous flow nebulizer, # 60 each, 5 Refills, Maintenance, 02/11/22 14:28:00 EDT, Solution, [facility] #[id number], 165, cm, 02/09/22 15:14:00 EDT, Height, 88.9, [...] 06/18/22 13:56:00 EDT, Route to Pharmacy Electronically, [facility] #[id number], Partial fill upon patient request if... Start Date: 06/18/22 Status: Ordered hydrochlorothiazide 12.5 mg oral tablet 1 tablet = 12.5 mg, By Mouth, Daily, discontinue HCTZ/lisinopril 25mg /20mg, # 30 tablet, 11 Refills, Maintenance, 10/29/21 13:48:00 EST, Tablet, [facility] #[id number], 165, cm, 10/29/21 12:16:00 EST, Height, 89.5, kg, 04/23/21 21:43:00 EDT, .. Start Date: 10/29/21 Status: Ordered levothyroxine 0.05 mg oral tablet 1 tablet, By Mouth, Daily, # 90 tablet, 1 Refills, Maintenance, 05/20/22 16:09:00 EDT, [facility] #[id number], 165, cm, 05/20/22 16:02:00 EDT, Height, 88.9, kg, 02/09/22 15:14:00 EDT, Dry Weight Start Date: 05/20/22 Status: Ordered lisinopril 40 mg oral tablet 1 tablet = 40 mg, By Mouth, Daily, discontinue HCTZ/lisinopril 25mg /20mg, # 30 tablet, 11 Refills,Maintenance, 10/29/21 13:47:00 EST, Tablet, [facility] #[id number], Partial fill upon patient request if the prescription is for a schedule II op... Start Date: 10/29/21 Status: Ordered Matzim LA 360 mg/24 hours oral tablet, extended release 1 tablet, By Mouth, Daily, # 90 tablet, 3 Refills, 02/17/22 13:08:00 EDT, [facility] #[id number], 165, cm, 02/17/22 12:49:00 EDT, Height, 88.9, kg, 02/09/22 15:14:00 EDT, Dry Weight Start Date: 02/17/22 Status: Ordered metFORMIN 500 mg oral tablet 1 tablet, By Mouth, 2 times a day, # 180 tablet, 3 Refills, Maintenance, 10/13/21 14:33:00 EST, [facility] #[id number], 165, cm, 04/23/21 21:43:00 EDT, Height, 89.5, kg, 04/23/21 21:43:00 EDT, Dry Weight Start Date: 10/13/21 Status: Ordered mirtazapine 15 mg oral tablet 0.5 tablet, By Mouth, Daily at bedtime, DECREASED DOSE., # 45 tablet, 1 Refills, Maintenance, 05/12/22 9:17:00 EDT, [facility] #[id number], 165, cm, 02/23/22 14:24:00 EDT, Height, 88.9, kg, 02/09/22 15:14:00 EDT, Dry Weight Start Date: 05/12/22 Status: Ordered montelukast 10 mg oral tablet 1, tablet, By Mouth, Daily at bedtime, SUPPLY., # 90 tablet, Refills 1, Maintenance, 06/18/22 14:04:00 EDT, Route to Pharmacy Electronically, [facility] #[id number], 165, cm, 06/18/22 13:19:00 EDT, Height, 88.9, kg, 02/09/22 15:14:00 EDT, Dry Weight Start Date: 06/18/22 Stop Date: 09/16/22 Status: Ordered Lfz-rao-rsvpk medical-grade oxford diabetic shoes, depth or hightop Zxo-ihl-ehlmb medical-grade oxford diabetic shoes, depth or hightop, [...] Refills, Maintenance, 12/18/21 15:48:00 EDT, EC Capsule, [facility] #[id number], 165, cm, 10/29/21 12:16:00 EST,... Start Date: 12/18/21 Status: Ordered Paxlovid 150 mg-100 mg (150 mg-100 mg Dose) oral tablet See Instructions, Three tablets by mouth BID as per package directions, # 1 pack/packet, 0 Refills,Acute 06/11/23 9:38:00 EDT, 06/10/22 9:37:00 EDT, [facility] #[id number], Partial fill upon patient request if the prescription is for a schedule... Start Date: 06/10/22 Stop Date: 06/11/23 Status: Ordered pravastatin 80 mg oral tablet 1 tablet, By Mouth, Daily, # 90 tablet, 1 Refills, Maintenance, 06/27/22 12:04:00 EDT, [facility] #[id number], 165, cm, 06/18/22 13:19:00 EDT, Height, 88.9, kg, 02/09/22 15:14:00 EDT, Dry Weight Start Date: 06/27/22 Status: Ordered Premarin Vaginal 0.625 mg/gm cream with applicator See Instructions, APPLY 1/2 GRAM IN THE VAGINA EVERY WEDNESDAY AND WEDNESDAY, # 30 Gm, 11 Refills, Maintenance, 05/11/22 14:58:00 EDT, [facility] #[id number], 30, APPLY 1/2 GRAM IN THE VAGINA [...] Gm, 5 Refills, Maintenance, 05/13/22 11:27:00 EDT, [facility] #[id number], Partial fill upon patient request if the [...] 4, 5, 6, 7 Confirmed 08/09/06 Active [id number] Thermodynamics Engineer Yee Ceballos Confirmed Active Varicose vein Confirmed [...] Sex Patient Care team information Personnel Name: Marychuy MCCLAIN, Jessica Address: Address: [address] [place] [address]
--- OUTSIDE RECORDS SUMMARY | 2024-07-06 12:04 | XMS_ITS | Continuity of Care Document ---
Author Organization [facility] Address Unknown Care Team Providers Care Molecular Modeler Name Role Phone Marychuy MCCLAIN, Jessica Primary Care Physician [facility]counter [facility] Date(s): 10/29/21 - 11/28/21 [facility] Attending Physician: Dominik Elizabeth Allergies, Adverse Reactions, Alerts [...] 03/10/21 15:25:00 EDT, Route to Pharmacy Electronically, [facility] #[id number], 165, cm, 12/25/20 10:00:00 EDT, Height, 88, kg, 11/03/19 18:19:00... Start Date: 03/10/21 Status: Ordered calcium (as citrate)-vitamin D 315 mg-250 intl units oral tablet 2 tablet, By Mouth, 2 times a day, Tej, # 360 tablet, 3 Refills, Maintenance, 03/26/21 13:03:00 EDT, Tablet, [facility] #[id number], 2 tablet By Mouth 2 times a day,x90 days,Instr:Tej, 165, cm, 03/26/21 11:57:00 EDT, Height, 88, kg, 11/03/19 18... Start Date: 03/26/21 Stop Date: 03/21/22 Status: Ordered celecoxib 100 mg oral capsule 1 capsule = 100 mg, By Mouth, 2 times a day, PRN knee pain, # 60 capsule, 5 Refills, Maintenance, 10/22/21 10:44:00 EST, Capsule, [facility] #[id number], 165, cm, 10/22/21 9:05:00 EST, Height, 89.5, kg, 04/23/21 21:43:00 EDT, Dry Weight Start Date: 10/22/21 Status: Ordered citalopram 20 mg oral tablet 20 mg, 1, tablet, By Mouth, Daily, # 90 tablet, Refills 3, Tot. Refills 3, Maintenance, 07/12/21 18:12:00 EDT, Route to Pharmacy Electronically, [facility] #[id number], is awared of interaction w nicky, 165, cm, 04/23/21 21:43:00 EDT, He... Start Date: 07/12/21 Status: Ordered Clarinex 5 mg oral tablet 1 tablet = 5 mg, By Mouth, Daily, Discontinue loratadine, # 30 tablet, 11 Refills, Maintenance, 03/26/21 13:02:00 EDT, Tablet, [facility] #[id number], 165, cm, 03/26/21 11:57:00 EDT, Height, 88,kg, 11/03/19 18:19:00 EST, Dry Weight Start Date: 03/26/21 Status: Ordered Colace sodium 100 mg oral capsule 100 mg, 1, capsule, By Mouth, 2 times a day, PRN, with plenty of water, # 180 capsule, Refills 3, Tot. Refills 3, Maintenance, as needed for constipation, 03/26/21 13:05:00 EDT, Route to Pharmacy Electronically, [facility] #[id number], Dispense o... Start Date: 03/26/21 Status: Ordered Compression- Lower Extremity (Knee High) See Instructions, # 2 each, Refills 11, Tot. Refills 11, Maintenance, use daily; closed toes; 10-20mmHg. Dx peripheral vascular insufficiency I 87.2, 10/29/21 13:42:00 EST, Compound Start Date: 10/29/21 Status: Ordered dilTIAZem 360 mg/24 hours oral tablet, extended release 1 tablet = 360 mg, By Mouth, Daily, # 90 tablet, 0 Refills, Maintenance, 09/30/21 16:04:00 EST, [facility] #[id number], 165, cm, 04/23/21 21:43:00 EDT, Height, 89.5, kg, 04/23/21 21:43:00 EDT, Dry Weight Start Date: 09/30/21 Status: Ordered EPINEPHrine 0.3 mg injectable solution = 0.3 mg, Intramuscular, Once, PRN Anaphylactic Reaction, # 1 each, 0 Refills, Soft Stop, 10/22/21 10:11:00 EST, [facility] #[id number], 165, cm, 10/22/21 9:05:00 EST, Height, 89.5, kg, 04/23/2121:43:00 EDT, Dry Weight Start Date: 10/22/21 Status: Ordered fluticasone 50 mcg/inh nasal spray 2 sprays, Nares, Both, Daily, Use every day during allergy season. While using spray keep head down. 30 days not 90 days dispense when patient requested by patient, # 16 Gm, 5 Refills, Maintenance, 07/07/21 7:57:00 EDT, [facility] #054... Start Date: 07/07/21 Status: Ordered hydrALAZINE 10 mg oral tablet 1, tablet, By Mouth, 3 times a day, Increase dose, # 90 tablet, Refills 11, Tot. Refills 11, 10/22/21 10:40:00 EST, Route to Pharmacy Electronically, [facility] #[id number], 165, cm, 10/22/21 9:05:00 EST, Height, 89.5, kg, 04/23/21 21:43:00 EDT,... Start Date: 10/22/21 Status: Ordered hydrochlorothiazide 12.5 mg oral tablet 1 tablet = 12.5 mg, By Mouth, Daily, discontinue HCTZ/lisinopril 25mg /20mg, # 30 tablet, 11 Refills, Maintenance, 10/29/21 13:48:00 EST, Tablet, [facility] #[id number], 165, cm, 10/29/21 12:16:00 EST, Height, 89.5, kg, 04/23/21 21:43:00 EDT, Dr... Start Date: 10/29/21 Status: Ordered Lancets See [...] Mouth, Daily, # 90 tablet, 1 Refills, [facility] #[id number], 165, cm, 10/29/21 12:16:00 EST, Height, 89.5, kg, 04/23/21 21:43:00 EDT, Dry Weight Start Date: 11/20/21 Status: Ordered lidocaine 5% topical film 1-3 patch, Topically, Daily, Apply patch in affected area. Remove patch(s) after 12 hours. Can reapply after resting 12 hours. Indication: diabetic neuropathy, # 30 patch, 11 Refills, Maintenance, 10/22/21 10:39:00 EST, [facility] #[id number]... Start Date: 10/22/21 Status: Ordered lisinopril 40 mg oral tablet 1 tablet = 40 mg, By Mouth, Daily, discontinue HCTZ/lisinopril 25mg /20mg, # 30 tablet, 11 Refills,Maintenance, 10/29/21 13:47:00 EST, Tablet, [facility] #[id number], Partial fill upon patient request if the prescription is for a schedule II op... Start Date: 10/29/21 Status: Ordered metFORMIN 500 mg oral tablet 1 tablet, By Mouth, 2 times a day, # 180 tablet, 3 Refills, Maintenance, 10/13/21 14:33:00 EST, [facility] #[id number], 165, cm, 04/23/21 21:43:00 EDT, Height, 89.5, kg, 04/23/21 21:43:00 EDT, Dry Weight Start Date: 10/13/21 Status: Ordered Znk-ewc-szqjj medical-grade oxford diabetic shoes, depth or hightop Sme-zbr-kgaoc medical-grade oxford diabetic shoes, depth or hightop, See Instructions, # 1 each, Refills 0, Tot. 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 Start Date: 12/25/20 Status: Ordered oxyCODONE 5 mg oral tablet [...] Gm, 11 Refills, Maintenance, 10/22/21 10:43:00 EST, [facility] #[id number], Partial fill upon patient request if the prescription is for a schedule II o... Start Date: 10/22/21 Status: Ordered pravastatin 80 mg oral tablet 1 tablet = 80 mg, By Mouth, Daily, 90 days, # 90 tablet, 3 Refills, Maintenance, 12/25/20 11:15:00 EDT, Tablet, [facility] #[id number], 165, cm, 12/25/20 10:00:00 EDT, Height, 88, kg, 11/03/19 18:19:00 EST, Dry Weight Start Date: 12/25/20 Status: Ordered Premarin Vaginal 0.625 mg/gm cream with applicator = 0.5 Gm, Vaginally, Every Wednesday and , # 42.5 Gm, 11 Refills, Maintenance, 03/26/21 13:01:00 EDT, [facility] #[id number], 0.5 Gm Vaginally Every Wednesday and , 165, cm, 03/26/21 11:57:00 EDT, Height, 88, kg, 11/03/19 18:19:00 EST,... Start Date: 03/26/21 Status: Ordered PriLOSEC OTC 20 mg oral delayed release tablet 1 tablet = 20 mg, By Mouth, Daily, Take 30 mins before breakfast, # 90 tablet, 2 Refills, Maintenance, 04/08/21 10:07:00 EDT, [facility] #[id number], MD is awared of interaction with citalopram;Duplicate rx; original sent 12/25/20. Remaining r... Start Date: 04/08/21 Status: Ordered Remeron 15 mg oral tablet 0.5 tablet = 7.5 mg, By Mouth, Daily at bedtime, Decreased dose, # 45 tablet, 3 Refills, Maintenance, 03/26/21 13:13:00 EDT, Tablet, [facility] #[id number], 165, cm, 03/26/21 11:57:00 EDT, Height, 88, [...] 12/25/20 11:14:00 EDT, Route to Pharmacy Electronically, [facility] #[id number], 165, cm, 12/25/20 10:00:00 EDT, Height, 88, [...] 11 Refills, Maintenance, 10/22/21 10:44:00 EST, Capsule, [facility] #[id number], ., 165, cm, 10/22/21 9:05:00 EST, Height, 89.5, kg, 04/23/21 21:43:00 EDT, Dry Weight Start Date: 2/9/22 Status: Ordered Ventolin HFA 108 mcg/inh inhalation aerosol with adapter 2 puffs, Inhalation, 4 times a day, PRN Wheezing/Shortness of Breath, as directed 15 minutes beforeexercise 30 days not 90 days dispense when patient request it, # 8.5 Gm, 5 Refills, Maintenance, 03/26/21 13:06:00 EDT, [facility] #[id number]... Start Date: 03/26/21 Status: [...] 9, 10, 11, 12, 13 08/09/06 Active *[id number] Care Partn jb Cabrera(Confirmed) Active Prurigo nodularis(Confirmed) 08/17/08 Active Renal insufficiency(Confirmed) Active Non-insulin dependent type 2 diabetes mellitus(Confirmed) 01/24/09 Active Varicose vein(Confirmed) Active Vitamin D deficiency(Confirmed) 07/26/08 Active 1CKD Stage III. 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
--- OUTSIDE RECORDS SUMMARY | 2024-07-06 12:04 | XMS_ITS | Continuity of Care Document ---
Author Organization [facility] Address [address] [place] [id number]- Care Team Providers Care Intake Rn Name Role Phone Marychuy MCCLAIN, Jessica Primary Care Physician [facility]counter [facility] Date(s): 04/17/24 - 05/17/24 [facility]/[address] [address]- Allergies, Adverse Reactions, Alerts Substance Reaction Severity [...] virus vaccine, inactivated 5 07/29/06 Gi javon [id number] 12y+ bivalent booster vax 03/24/23 Given [id number] 12y+ bivalent booster vax 07/28/22 Recorded SARS-CoV-2 mRNA ([id number]) vax 02/17/22 Given SARS-CoV-2 (COVID-19) mRNA BNT-162b2 [...] Refills, Maintenance, 01/19/24 8:32:00 EDT, ER Tablet, [facility] #[id number], Partial fill upon patient request if th... Start Date: 01/19/24 Status: Ordered Albuterol (Eqv-ProAir HFA) 90 mcg/inh inhalation aerosol 2 puffs, Inhalation, Every 6 hours, PRN Wheezing/Shortness of Breath, # 8.5 Gm, 5 Refills, Maintenance, 01/19/24 8:30:00 EDT, [facility] #[id number], If pump is not covered, it can [...] 01/19/24 8:40:00 EDT, Route to Pharmacy Electronically, [id number], [facility] #[id number], 165, cm, 01/19/24 7:55:00 EDT, Height, 85.... Start Date: 01/19/24 Status: Ordered calcium (as citrate)-vitamin D 315 mg-250 intl units oral tablet 2 tablet, By Mouth, 2 times a day, # 360 tablet, 3 Refills, Maintenance, 03/18/24 10:33:00 EDT, [facility] #[id number], 2 tablet By Mouth 2 times a day,x90 days, 165, cm, 01/19/24 7:55:00 EDT, Height, 85.45, kg, 12/23/23 9:04:00 EDT, Dry Weight Start Date: 03/18/24 Stop Date: 03/13/25 Status: Ordered ciclopirox 8% topical solution 1 application, Topically, Daily, as directed to affected area toenails, # 6.6 mL, 11 Refills, Maintenance, 01/19/24 9:20:00 EDT, Solution, [facility] #[id number], ., 1 application Topically Daily,Instr:as directed; to affected area toenails, 165... Start Date: 01/19/24 Status: Ordered Clarinex 5 mg oral tablet 1 tablet = 5 mg, By Mouth, Daily, # 90 tablet, 3 Refills, Maintenance, 03/18/24 10:23:00 EDT, Tablet, [facility] #[id number], 165, cm, 01/19/24 7:55:00 EDT, Height, 85.45, [...] 11 Refills, Maintenance, 01/19/24 8:42:00 EDT, Gel, [facility] #44384, ., 165, cm, 01/19/24 7:55:00 EDT, Height, 85.45, kg, 12/23/23 9:04:00 EDT,Dry Weight Start Date: 01/19/24 Stop Date: 07/05/24 Status: Ordered Eliquis 5 mg oral tablet 1 tablet, By Mouth, 2 times a day, # 180 tablet, 3 Refills, Maintenance, 01/19/24 9:20:00 EDT, [facility] #[id number], 165, cm, 01/19/24 7:55:00 EDT, Height, 85.45, kg, 12/23/23 9:04:00 EDT, DryWeight Start Date: 01/19/24 Status: Ordered EPINEPHrine 0.3 mg injectable solution = 0.3 mg, Intramuscular, Once, PRN Anaphylactic Reaction, # 1 each, 0 Refills, Soft Stop, 10/22/21 10:11:00 EST, [facility] #[id number], 165, cm, 10/22/21 9:05:00 EST, Height, 89.5, kg, 04/23/2121:43:00 EDT, Dry Weight Start Date: 10/22/21 Status: Ordered escitalopram 10 mg oral tablet 1 tablet = 10 mg, By Mouth, Daily, discontinue citalopram, # 30 tablet, 11 Refills, Maintenance, 01/19/24 8:34:00 EDT, Tablet, [facility] #[id number], Partial fill upon patient request if the prescription is for a schedule II opioid drug., 165, c... Start Date: 01/19/24 Status: Ordered fluticasone 50 mcg/inh nasal spray 2 sprays, Nares, Both, Daily, Use every day during allergy season. While using spray keep head down., # 3 each, 3 Refills, Maintenance, 03/18/24 10:28:00 EDT, [facility] #[id number], ., 2 spraysNares, Both Daily,x90 days,Instr:Use every day duri... Start Date: 03/18/24 Stop Date: 03/13/25 Status: Ordered formoterol 10 mcg/mL inhalation solution See Instructions, USE 2 ML VIA NEBULIZER TWICE DAILY USING A CONTINUOUS FLOW VIA NEBULIZER, # 120 mL, 11 Refills, Maintenance, 01/19/24 8:40:00 EDT, [facility] #[id number], 165, cm, 01/19/24 7:55:00 EDT, Height, 85.45, [...] tablet, 3 Refills, Maintenance, 03/18/24 10:31:00 EDT, [facility] #[id number], 165, cm, 01/19/24 7:55:00 EDT, Height, 85.45, kg, 12/23/23 9:04:00 EDT, Dry Weight Start Date: 03/18/24 Stop Date: 03/13/25 Status: Ordered lisinopril 40 mg oral tablet 1 tablet = 40 mg, By Mouth, Daily in AM, 11 AM Decreased dose, # 90 tablet, 3 Refills, Maintenance,03/18/24 10:12:00 EDT, Tablet, [facility] #[id number], 165, cm, 01/19/24 7:55:00 EDT, Height, 85.45, kg, 12/23/23 9:04:00 EDT, Dry Weight Start Date: 03/18/24 Stop Date: 03/13/25 Status: Ordered Matzim LA 180 mg/24 hours oral tablet, extended release 1 tablet = 180 mg, By Mouth, Daily in AM, Take at 11 AM, # 90 tablet, 3 Refills, Maintenance, 03/18/24 9:58:00 EDT, ER Tablet, [facility] #[id number], 165, cm, 01/19/24 7:55:00 EDT, Height, 85.45, kg, 12/23/23 9:04:00 EDT, Dry Weight Start Date: 03/18/24 Stop Date: 03/13/25 Status: Ordered MetFORMIN (Eqv-Glucophage XR) 500 mg oral tablet, extended release 1 tablet, By Mouth, 2 times a day with meals, INCREASE DOSE, # 180 tablet, 3 Refills, Maintenance, 12/22/23 16:13:00 EDT, [facility] #62234, 165, cm, 12/20/23 5:43:00 EDT, Height, 84.5, kg,12/19/23 17:15:00 EDT, Dry Weight Start Date: 12/22/23 Status: Ordered metoprolol 25 mg oral tablet, extended release 25 mg, 1, tablet, By Mouth, Daily, # 30 tablet, Refills 11, Tot. Refills 11, Maintenance, 01/19/24 8:40:00 EDT, Route to Pharmacy Electronically, [facility] #[id number], 165, cm, 01/19/24 7:55:00 EDT, Height, 85.45, kg, 12/23/23 9:04:00 EDT, Dry... Start Date: 01/19/24 Status: Ordered mirtazapine 15 mg oral tablet 0.5 tablet, By Mouth, Daily at bedtime, # 45 tablet, 3 Refills, Maintenance, 03/18/24 10:22:00 EDT,[facility] #[id number], 165, cm, 01/19/24 7:55:00 EDT, Height, 85.45, kg, 12/23/23 9:04:00 EDT, Dry Weight Start Date: 03/18/24 Stop Date: 03/13/25 Status: Ordered montelukast 10 mg oral tablet 1, tablet, By Mouth, Daily at bedtime, SUPPLY., # 90 tablet, Refills 3, Tot. Refills 3, Maintenance, 06/05/23 14:50:00 EDT, Route to Pharmacy Electronically, [facility] #[id number], 160, cm, 03/24/23 10:19:00 EDT, Height, 89.54, kg, 02/09/23 16:4... Start Date: 06/05/23 Status: Ordered Nucala Prefilled Autoinjector 100 mg/mL subcutaneous solution = 100 mg, Subcutaneous Infusion, Every 28 days, j45.40, # 1 each, 11 Refills, Maintenance, 01/12/2414:58:00 EDT, [facility], Partial fill upon patient request if the prescription isfor a schedule II opioid drug., 165, cm, 01/04/24 1... Start Date: 01/13/24 Status: Ordered Xoq-xet-hbjkh medical-grade oxford diabetic shoes, depth or hightop Fmz-qfc-lfqcj medical-grade oxford diabetic shoes, depth or hightop, [...] capsule, 3 Refills, Maintenance, 03/18/24 10:28:00 EDT, [facility] #[id number], 165, cm, 01/19/24 7:55:00 EDT, Height, 85.45, kg, 12/23/23 9:04:00 EDT, Dry Weight Start Date: 03/18/24 Stop Date: 03/13/25 Status: Ordered pravastatin 80 mg oral tablet 1 tablet, By Mouth, Daily, # 90 tablet, 3 Refills, Maintenance, 03/24/23 10:32:00 EDT, [facility] #[id number], 160, cm, 03/24/23 10:19:00 EDT, Height, 89.54, kg, 02/09/23 16:45:00 EDT, Dry Weight Start Date: 03/24/23 Stop Date: 03/18/24 Status: Ordered Premarin Vaginal 0.625 mg/gm cream with applicator See Instructions, APPLY 1/2 GRAM IN THE VAGINA EVERY WEDNESDAY AND WEDNESDAY, # 30 Gm, 11 Refills, Maintenance, 01/19/24 9:20:00 EDT, [facility] #[id number], 30, APPLY 1/2 GRAM IN THE VAGINA [...] in AM, at 11 AM Given by microbiology supervisor, Dr. Indio Mason, # 30 tablet, Refills [...] day, PRN itching Apply to lower extremities [place]ar[place], # 30 Gm, 2Refills, Maintenance, 02/23/24 8:27:00 EDT, [facility] #71762, 1 application Topically 3 times a day,Instr:PRN itching ; Apply to lower e... Start Date: 02/23/24 Status: Ordered Wixela Inhub 100 mcg-50 mcg inhalation powder 1 inhalation, Inhalation, 2 times a day, J45..0rinse mouth and throat after use, # 1 each, 5 Refills, Maintenance, 01/26/24 9:28:00 EDT, Powder, [facility] #[id number], Partial fill upon patientrequest if the prescription [...] 5, 6, 7, 8 Confirmed 08/09/06 Active *[phone] Supervisor Heading Michelle Cain Confirmed Active Varicose vein Confirmed [...] Primary Care Member Role: PCP Address: Address: [address] [place] [address]- Care Team Related Persons Name: SANDY BOYCE Address: [address] [place] [address] Name: CARLICOLT Address: home [address] [place] [address]
--- OUTSIDE RECORDS SUMMARY | 2024-07-06 12:04 | XMS_ITS | Continuity of Care Document ---
Author Organization [facility] Address [address] [place] [id number]- Care Team Providers Care Broth Mixer Name Role Phone Jessica Perrin MD Primary Care Physician Encounter [facility] Date(s): 06/29/22 - 08/05/22 [facility] [address] [place] [address] [place] [id number] Attending Physician: Marco Berger MD Admitting Physician: Marco Berger MD Referring Physician: Jessica Perrin MD Allergies, [...] Vaccine Date Status Refusal Reason SARS-CoV-2 mRNA (vwzhoms-zseo-iaplf) vax 02/17/22 Given influenza virus vaccine, inactivated [...] tablet, 11 Refills, Maintenance, 05/13/22 11:27:00 EDT, [facility] #[id number], Partial fill upon cherelle... Start Date: 05/13/22 Status: Ordered albuterol 0.083% inhalation solution 3 mL = 2.5 mg, Inhalation, Every 6 hours, # 25 each, 2 Refills, Maintenance, 05/13/22 11:31:00 EDT,[facility] #[id number], 165, cm, 05/13/22 10:23:00 EDT, Height, 88.9, kg, 02/09/22 15:14:00 EDT, Dry Weight Start Date: 05/13/22 Stop Date: 08/11/22 Status: Ordered budesonide 0.5 mg/2 mL inhalation suspension 0.5 mg, 2, mL, Neb, 2 times a day, # 120 mL, Refills 5, Tot. Refills 5, Maintenance, 02/11/22 14:27:00 EDT, Suspension, Route to Pharmacy Electronically, [id number], [facility] #[id number], 165, cm, 02/09/22 15:14:00 EDT... Start Date: 02/11/22 Status: Ordered calcium (as citrate)-vitamin D 315 mg-250 intl units oral tablet 2 tablet, By Mouth, 2 times a day, # 360 tablet, 0 Refills, [facility] #[id number], 90, TAKE 2TABLETS BY MOUTH TWICE DAILY, 165, cm, 02/23/22 14:24:00 EDT, Height, 88.9, kg, 02/09/22 15:14:00 EDT, Dry Weight Start Date: 04/01/22 Status: Ordered citalopram 20 mg oral tablet 20 mg, 1, tablet, By Mouth, Daily, # 90 tablet, Refills 3, Tot. Refills 3, Maintenance, 07/08/22 14:31:00 EDT, Route to Pharmacy Electronically, [facility] #[id number], is awared of interaction raudel saunders, 165, cm, 06/18/22 13:19:00 EDT, He... Start Date: 07/08/22 Status: Ordered Clarinex 5 mg oral tablet 1 tablet = 5 mg, By Mouth, Daily, # 90 tablet, 3 Refills, Maintenance, 04/29/22 12:53:00 EDT, Tablet, [facility] #[id number], 165, cm, 02/23/22 14:24:00 EDT, Height, 88.9, [...] 0 Refills, Soft Stop, 10/22/21 10:11:00 EST, [facility] #[id number], 165, cm, 10/22/21 9:05:00 EST, Height, 89.5, kg, 04/23/2121:43:00 EDT, Dry Weight Start Date: 10/22/21 Status: Ordered fluticasone 50 mcg/inh nasal spray See Instructions, SPRAY 2 TIMES IN EACH NOSTRILS EVERY DAY. NEEDED FOR ALLERGY SEASON. WHEN SPRAYING KEEP HEAD DOWN, # 16 Gm, 11 Refills, 02/17/22 13:14:00 EDT, [facility] #[id number], 30, SPRAY 2 TIMES IN EACH NOSTRILS EVERY DAY. NEEDED FO... Start Date: 02/17/22 Status: Ordered formoterol 10 mcg/mL inhalation solution 2 mL = 20 mcg, Inhalation, 2 times a day, using a continuous flow nebulizer, # 60 each, 5 Refills, Maintenance, 02/11/22 14:28:00 EDT, Solution, [facility] #[id number], 165, cm, 02/09/22 15:14:00 EDT, Height, 88.9, [...] 06/18/22 13:56:00 EDT, Route to Pharmacy Electronically, [facility] #[id number], Partial fill upon patient request if... Start Date: 06/18/22 Status: Ordered hydrochlorothiazide 12.5 mg oral tablet 1 tablet = 12.5 mg, By Mouth, Daily, discontinue HCTZ/lisinopril 25mg /20mg, # 30 tablet, 11 Refills, Maintenance, 10/29/21 13:48:00 EST, Tablet, [facility] #74575, 165, cm, 10/29/21 12:16:00 EST, Height, 89.5, kg, 04/23/21 21:43:00 EDT, . Start Date: 10/29/21 Status: Ordered levothyroxine 0.05 mg oral tablet 1 tablet, By Mouth, Daily, # 90 tablet, 1 Refills, Maintenance, 05/20/22 16:09:00 EDT, [facility] #[id number], 165, cm, 05/20/22 16:02:00 EDT, Height, 88.9, kg, 02/09/22 15:14:00 EDT, Dry Weight Start Date: 05/20/22 Status: Ordered lisinopril 40 mg oral tablet 1 tablet = 40 mg, By Mouth, Daily, discontinue HCTZ/lisinopril 25mg /20mg, # 30 tablet, 11 Refills,Maintenance, 10/29/21 13:47:00 EST, Tablet, [facility] #07235, Partial fill upon patient request if the prescription is for a schedule II op... Start Date: 10/29/21 Status: Ordered Matzim LA 360 mg/24 hours oral tablet, extended release 1 tablet, By Mouth, Daily, # 90 tablet, 3 Refills, 02/17/22 13:08:00 EDT, [facility] #[id number], 165, cm, 02/17/22 12:49:00 EDT, Height, 88.9, kg, 02/09/22 15:14:00 EDT, Dry Weight Start Date: 02/17/22 Status: Ordered metFORMIN 500 mg oral tablet 1 tablet, By Mouth, 2 times a day, # 180 tablet, 3 Refills, Maintenance, 10/13/21 14:33:00 EST, [facility] #[id number], 165, cm, 04/23/21 21:43:00 EDT, Height, 89.5, kg, 04/23/21 21:43:00 EDT, Dry Weight Start Date: 10/13/21 Status: Ordered mirtazapine 15 mg oral tablet 0.5 tablet, By Mouth, Daily at bedtime, DECREASED DOSE., # 45 tablet, 1 Refills, Maintenance, 05/12/22 9:17:00 EDT, [facility] #[id number], 165, cm, 02/23/22 14:24:00 EDT, Height, 88.9, kg, 02/09/22 15:14:00 EDT, Dry Weight Start Date: 05/12/22 Status: Ordered montelukast 10 mg oral tablet 1, tablet, By Mouth, Daily at bedtime, SUPPLY., # 90 tablet, Refills 1, Maintenance, 06/18/22 14:04:00 EDT, Route to Pharmacy Electronically, [facility] #[id number], 165, cm, 06/18/22 13:19:00 EDT, Height, 88.9, kg, 02/09/22 15:14:00 EDT, Dry Weight Start Date: 06/18/22 Stop Date: 09/16/22 Status: Ordered Tdm-cbu-gxxww medical-grade oxford diabetic shoes, depth or hightop Nvr-ywi-pjwmd medical-grade oxford diabetic shoes, depth or hightop, [...] Refills, Maintenance, 12/18/21 15:48:00 EDT, EC Capsule, [facility] #[id number], 165, cm, 10/29/21 12:16:00 EST,... Start Date: 12/18/21 Status: Ordered Paxlovid 150 mg-100 mg (150 mg-100 mg Dose) oral tablet See Instructions, Three tablets by mouth BID as per package directions, # 1 pack/packet, 0 Refills,Acute 06/11/23 9:38:00 EDT, 06/10/22 9:37:00 EDT, [facility] #[id number], Partial fill upon patient request if the prescription is for a schedule... Start Date: 06/10/22 Stop Date: 06/11/23 Status: Ordered pravastatin 80 mg oral tablet 1 tablet, By Mouth, Daily, # 90 tablet, 1 Refills, Maintenance, 06/27/22 12:04:00 EDT, [facility] #[id number], 165, cm, 06/18/22 13:19:00 EDT, Height, 88.9, kg, 02/09/22 15:14:00 EDT, Dry Weight Start Date: 06/27/22 Status: Ordered Premarin Vaginal 0.625 mg/gm cream with applicator See Instructions, APPLY 1/2 GRAM IN THE VAGINA EVERY WEDNESDAY AND WEDNESDAY, # 30 Gm, 11 Refills, Maintenance, 05/11/22 14:58:00 EDT, [facility] #68215, 30, APPLY 1/2 GRAM IN THE VAGINA [...] Gm, 5 Refills, Maintenance, 05/13/22 11:27:00 EDT, [facility] #72108, Partial fill upon patient request if the [...] 4, 5, 6, 7 Confirmed 08/09/06 Active *[id number] Rn Field Isabel Arellano Confirmed Active Varicose vein Confirmed [...] Team Personnel Name: Carlos RN, Haley Position: [facility] RN Member Role: Primary Care Nurse Name: Marychuy MCCLAIN, Jessica Position: [facility] Primary Care Physician Member Role: PCP Address: Address: [address] [place] [address]- Care Team Related Persons Name: CARLISANDY Address: home [address] [place] [address] Name: COLT BOYCE Address: home [address] [place] [address]
--- OUTSIDE RECORDS SUMMARY | 2024-07-06 12:04 | XMS_ITS | Continuity of Care Document ---
Author Organization [facility] Address [address] [place] [address]- Care Team Providers Care Guidance Services Coordinator Name Role Phone Jessica Perrin MD Primary Care Physician Encounter [facility] Date(s): 04/04/22 - 07/31/22 [facility] [address] [place] [address] [place] [id number] Attending Physician: Marco Berger MD Admitting Physician: [...] Vaccine Date Status Refusal Reason SARS-CoV-2 mRNA (bhwdyru-kkxv-cmfwm) vax 02/17/22 Given influenza virus vaccine, inactivated [...] tablet, 11 Refills, Maintenance, 05/13/22 11:27:00 EDT, [facility][id number], Partial fill upon cherelle... Start Date: 05/13/22 Status: Ordered albuterol 0.083% inhalation solution 3 mL = 2.5 mg, Inhalation, Every 6 hours, # 25 each, 2 Refills, Maintenance, 05/13/22 11:31:00 EDT,[facility] #16505, 165, cm, 05/13/22 10:23:00 EDT, Height, 88.9, kg, 02/09/22 15:14:00 EDT, Dry Weight Start Date: 05/13/22 Stop Date: 08/11/22 Status: Ordered budesonide 0.5 mg/2 mL inhalation suspension 0.5 mg, 2, mL, Neb, 2 times a day, # 120 mL, Refills 5, Tot. Refills 5, Maintenance, 02/11/22 14:27:00 EDT, Suspension, Route to Pharmacy Electronically, [id number], [facility] #[id number], 165, cm, 02/09/22 15:14:00 EDT... Start Date: 02/11/22 Status: Ordered calcium (as citrate)-vitamin D 315 mg-250 intl units oral tablet 2 tablet, By Mouth, 2 times a day, # 360 tablet, 0 Refills, [facility] #[id number], 90, TAKE 2TABLETS BY MOUTH TWICE DAILY, 165, cm, 02/23/22 14:24:00 EDT, Height, 88.9, kg, 02/09/22 15:14:00 EDT, Dry Weight Start Date: 04/01/22 Status: Ordered citalopram 20 mg oral tablet 20 mg, 1, tablet, By Mouth, Daily, # 90 tablet, Refills 3, Tot. Refills 3, Maintenance, 07/08/22 14:31:00 EDT, Route to Pharmacy Electronically, [facility] #[id number], is awared of interaction raudel saunders, 165, cm, 06/18/22 13:19:00 EDT, He... Start Date: 07/08/22 Status: Ordered Clarinex 5 mg oral tablet 1 tablet = 5 mg, By Mouth, Daily, # 90 tablet, 3 Refills, Maintenance, 04/29/22 12:53:00 EDT, Tablet, [facility] #28725, 165, cm, 02/23/22 14:24:00 EDT, Height, 88.9, [...] 0 Refills, Soft Stop, 10/22/21 10:11:00 EST, [facility] #68022, 165, cm, 10/22/21 9:05:00 EST, Height, 89.5, kg, 04/23/2121:43:00 EDT, Dry Weight Start Date: 10/22/21 Status: Ordered fluticasone 50 mcg/inh nasal spray See Instructions, SPRAY 2 TIMES IN EACH NOSTRILS EVERY DAY. NEEDED FOR ALLERGY SEASON. WHEN SPRAYING KEEP HEAD DOWN, # 16 Gm, 11 Refills, 02/17/22 13:14:00 EDT, [facility] #58494, 30, SPRAY 2 TIMES IN EACH NOSTRILS EVERY DAY. NEEDED FO... Start Date: 02/17/22 Status: Ordered formoterol 10 mcg/mL inhalation solution 2 mL = 20 mcg, Inhalation, 2 times a day, using a continuous flow nebulizer, # 60 each, 5 Refills, Maintenance, 02/11/22 14:28:00 EDT, Solution, [facility] #07255, 165, cm, 02/09/22 15:14:00 EDT, Height, 88.9, [...] 06/18/22 13:56:00 EDT, Route to Pharmacy Electronically, [facility][id number], Partial fill upon patient request if... Start Date: 06/18/22 Status: Ordered hydrochlorothiazide 12.5 mg oral tablet 1 tablet = 12.5 mg, By Mouth, Daily, discontinue HCTZ/lisinopril 25mg /20mg, # 30 tablet, 11 Refills, Maintenance, 10/29/21 13:48:00 EST, Tablet, [facility] #72271, 165, cm, 10/29/21 12:16:00 EST, Height, 89.5, kg, 04/23/21 21:43:00 EDT, . Start Date: 10/29/21 Status: Ordered levothyroxine 0.05 mg oral tablet 1 tablet, By Mouth, Daily, # 90 tablet, 1 Refills, Maintenance, 05/20/22 16:09:00 EDT, [facility] #[id number], 165, cm, 05/20/22 16:02:00 EDT, Height, 88.9, kg, 02/09/22 15:14:00 EDT, Dry Weight Start Date: 05/20/22 Status: Ordered lisinopril 40 mg oral tablet 1 tablet = 40 mg, By Mouth, Daily, discontinue HCTZ/lisinopril 25mg /20mg, # 30 tablet, 11 Refills,Maintenance, 10/29/21 13:47:00 EST, Tablet, [facility] #[id number], Partial fill upon patient request if the prescription is for a schedule II op... Start Date: 10/29/21 Status: Ordered Matzim LA 360 mg/24 hours oral tablet, extended release 1 tablet, By Mouth, Daily, # 90 tablet, 3 Refills, 02/17/22 13:08:00 EDT, [facility] #56853, 165, cm, 02/17/22 12:49:00 EDT, Height, 88.9, kg, 02/09/22 15:14:00 EDT, Dry Weight Start Date: 02/17/22 Status: Ordered metFORMIN 500 mg oral tablet 1 tablet, By Mouth, 2 times a day, # 180 tablet, 3 Refills, Maintenance, 10/13/21 14:33:00 EST, [facility] #[id number], 165, cm, 04/23/21 21:43:00 EDT, Height, 89.5, kg, 04/23/21 21:43:00 EDT, Dry Weight Start Date: 10/13/21 Status: Ordered mirtazapine 15 mg oral tablet 0.5 tablet, By Mouth, Daily at bedtime, DECREASED DOSE., # 45 tablet, 1 Refills, Maintenance, 05/12/22 9:17:00 EDT, [facility] #76360, 165, cm, 02/23/22 14:24:00 EDT, Height, 88.9, kg, 02/09/22 15:14:00 EDT, Dry Weight Start Date: 05/12/22 Status: Ordered montelukast 10 mg oral tablet 1, tablet, By Mouth, Daily at bedtime, SUPPLY., # 90 tablet, Refills 1, Maintenance, 06/18/22 14:04:00 EDT, Route to Pharmacy Electronically, [facility] #[id number], 165, cm, 06/18/22 13:19:00 EDT, Height, 88.9, kg, 02/09/22 15:14:00 EDT, Dry Weight Start Date: 06/18/22 Stop Date: 09/16/22 Status: Ordered Ptr-jdg-dgpws medical-grade oxford diabetic shoes, depth or hightop Rby-nuy-bmpet medical-grade oxford diabetic shoes, depth or hightop, [...] Refills, Maintenance, 12/18/21 15:48:00 EDT, EC Capsule, [facility] #33007, 165, cm, 10/29/21 12:16:00 EST,... Start Date: 12/18/21 Status: Ordered Paxlovid 150 mg-100 mg (150 mg-100 mg Dose) oral tablet See Instructions, Three tablets by mouth BID as per package directions, # 1 pack/packet, 0 Refills,Acute 06/11/23 9:38:00 EDT, 06/10/22 9:37:00 EDT, [facility] #[id number], Partial fill upon patient request if the prescription is for a schedule... Start Date: 06/10/22 Stop Date: 06/11/23 Status: Ordered pravastatin 80 mg oral tablet 1 tablet, By Mouth, Daily, # 90 tablet, 1 Refills, Maintenance, 06/27/22 12:04:00 EDT, [facility] #[id number], 165, cm, 06/18/22 13:19:00 EDT, Height, 88.9, kg, 02/09/22 15:14:00 EDT, Dry Weight Start Date: 06/27/22 Status: Ordered Premarin Vaginal 0.625 mg/gm cream with applicator See Instructions, APPLY 1/2 GRAM IN THE VAGINA EVERY WEDNESDAY AND WEDNESDAY, # 30 Gm, 11 Refills, Maintenance, 05/11/22 14:58:00 EDT, [facility] #62714, 30, APPLY 1/2 GRAM IN THE VAGINA [...] Gm, 5 Refills, Maintenance, 05/13/22 11:27:00 EDT, [facility] #[id number], Partial fill upon patient request if the [...] 4, 5, 6, 7 Confirmed 08/09/06 Active *[id number] [employer] Isabel Arellano Confirmed Active Varicose vein Confirmed [...] Team Personnel Name: Carlos RN, Haley Position: [facility] RN Member Role: Primary Care Nurse Name: Marychuy MCCLAIN, Jessica Position: [facility] Primary Care Physician Member Role: PCP Address: Address: [address] [place] [address]- Care Team Related Persons Name: CARLISANDY Address: home [address] [place] [address] Name: COLT BOYCE Address: home [address] [place] [address]
--- OUTSIDE RECORDS SUMMARY | 2024-07-06 12:05 | XMS_ITS | Continuity of Care Document ---
Author Organization [facility] Address [address] [place] [address]- Care Team Providers Care Relocation Manager Name Role Phone Marychuy MCCLAIN, Jessica Primary Care Physician Encounter [facility] Date(s): 11/03/19 - 11/03/[address] [address]- [facility] Discharge Disposition: A-D/C Home Attending Physician: Abdirahman Duffy MD Admitting Physician: Abdirahman Duffy MD Referring Physician: Not on Staff, Referring [...] Refills, Maintenance, 08/30/19 9:25:00 EST, ER Tablet, [facility] #57710, 162.5, cm, 07/25/19 9:45:00 ES... Start Date: 08/30/19 Status: Ordered acetaminophen-HYDROcodone 325 mg-5 mg oral tablet 1 tablet, By Mouth, Every 4 hours, PRN for pain, # 12 tablet, 0 Refills, Acute 11/10/19 22:32:00 EST, 11/03/19 22:31:00 EST, Tablet, [facility] #95695, Partial fill upon patient request, 1 tablet [...] 01/02/19 12:49:20 EDT, Route to Pharmacy Electronically, [id number], [id number] Start Date: 01/02/19 Status: Ordered calcium (as [...] 07/18/19 10:44:28 EST, Route to Pharmacy Electronically, [id number], [facility] #[id number], MD is awared of interaction w prilosec Start Date: 07/18/19 Status: Ordered Colace sodium 100 mg oral capsule 100 mg, 1, capsule, By Mouth, 2 times a day, PRN, with plenty of water, # 180 capsule, Refills 3, Tot. Refills 3, Maintenance, as needed for constipation, 08/30/19 9:25:00 EST, Route to Pharmacy Electronically, [facility] #[id number], 162.5, cm,... Start Date: 08/30/19 Status: Ordered [...] Gm, 11 Refills, Maintenance, 10/25/19 11:57:00 EST, [facility] #[id number], dispe... Start Date: 10/25/19 Status: Ordered hydrALAZINE 10 mg oral tablet 10 mg, 1, tablet, By Mouth, 2 times a day, 90 days, # 180 tablet, Refills 3, Tot. Refills 3, Maintenance, 08/30/19 9:25:00 EST, Route to Pharmacy Electronically, [facility] #[id number], 162.5, cm, 07/25/19 9:45:00 EST, Height, 85.9, kg, 07/25/19... Start Date: 08/30/19 Status: Ordered hydrochlorothiazide-lisinopril 25 mg-20 mg oral tablet 1 tablet, By Mouth, Daily, discontinue HCTZ 12.5/lisnopril 20mg, # 90 tablet, 3 Refills, Maintenance, 09/04/19 22:49:00 EST, Tablet, [facility] #59096, 90 days, 1 tablet By Mouth Daily,Instr:discontinue HCTZ 12.5/lisnopril 20mg, 162.5, cm, 1... Start Date: 09/04/19 Status: Ordered Incruse Ellipta 62.5 mcg/inh inhalation powder = 62.5 mcg, Inhalation, Every 24 hours, doses should be taken at least 24 hours apart discontinue Tudorza, # 30 each, 11 Refills, Maintenance, 08/30/19 9:23:00 EST, [facility] #51541, 162.5, cm, 07/25/19 9:45:00 EST, Height, 85.9, [...] 08/30/19 9:25:00 EST, Route to Pharmacy Electronically, [facility] #[id number], 162.5, cm, 07/25/19 9:45:00 EST, Height,... Start Date: 08/30/19 Status: Ordered metFORMIN 500 mg oral tablet 1 tablet = 500 mg, By Mouth, 2 times a day, discontinue metformin 1000mg, # 180 tablet, 3 Refills, Maintenance, 12/23/18 16:21:02 EDT, Tablet Start Date: 12/23/18 Status: Ordered Qah-hxs-pcxaz medical-grade oxford diabetic shoes, depth or hightop Xes-cnp-yedwn medical-grade oxford diabetic shoes, depth or hightop, [...] 3 Refills, Maintenance, 08/30/19 9:25:00 EST, Tablet, [facility] #[id number], 162.5, cm, 07/25/19 9:45:00 EST, Height, 85.9, kg, :45:00 EST, Dry Weight Start Date: 08/30/19 Status: [...] 06/28/19 7:33:11 EDT, Route to Pharmacy Electronically, [id number], [facility] #[id number] Start Date: 06/28/19 Status: Ordered Sinus rinse [...] Gm, 5 Refills, Maintenance, 10/25/19 11:57:00 EST, [facility] #[id number]... Start Date: 10/25/19 Status: Ordered Voltaren 1% topical gel = 2 Gm, Topically, 4 times a day, dispense when patient request it, # 100 Gm, 2 Refills, Maintenance, 10/25/19 11:57:00 EST, [facility] #52878, 2 Gm Topically 4 times a day,x14 [...] 9, 10, 11, 12, 13 08/09/06 Active *[id number]-[facility] Partn isai Pauline Rossi(Confirmed) Active Prurigo nodularis(Confirmed) 08/17/08 Active Renal insufficiency(Confirmed) Active Non-insulin dependent type 2 diabetes mellitus(Confirmed) 01/24/09 Active Varicose vein(Confirmed) Active Vitamin D deficiency(Confirmed) 07/26/08 Active 1CKD Stage III. 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 COMPARISON: None. FINDINGS: There is no evidence of acute or healing fracture, dislocation or bone lesion. 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 No evidence of joint effusion. IMPRESSION: No fracture or dislocation. I have personally reviewed the images and I agree with this report. WSN: [id number] Dictated By: Woody Patel MD Dictated Date/Time: 11/03/19 10:22 p Reviewed By: Carlitos Garcia MD Signed By: Carlitos Garcia MD Signed Date/Time: 11/03/19 10:27 pm Transcribed By: SAJAN Transcribed Date/Time: 11/03/19 10:19 pm Vital Signs Most recent to oldest [Reference Range]: 1 2 3 Height 165 cm (11/03/19 6:19 PM) Weight 88 kg (11/03/19 6:19 PM) Oxygen Saturation [94-100 %] 97 % (11/03/19 10:56 PM) 97 % (11/03/19 6:19 PM) Pulse Rate [55-90 bpm] 72 bpm (11/03/19 10:56 PM) 82 bpm (11/03/19 6:19 PM) Blood Pressure [90-138/55-84 mm Hg] 169/71mm Hg *H* (11/03/19 10:56 PM) 178/73mm Hg *H* (11/03/19 6:19 PM) Respiratory Rate [16-30 br/min] 17 br/min (11/03/19 10:56 PM) 17 br/min (11/03/19 10:49 PM) 17 br/min (11/03/19 10:49 PM) Temperature [96.8-100.4 DegF] 98.3 DegF (11/03/19 6:19 PM) Mode of Delivery (Oxygen) Room air (11/03/19 10:56 PM) Room air (11/03/19 6:19 PM) Dry Weight 88 kg (11/03/19 6:19 PM) Weight Obtained Via Patient/family state d (11/03/19 6:19 PM) Dry Weight Obtained Via Patient/family s tated (11/03/19 6:19 PM) Social History Social History Type Response Smoking Status Never (less than 100 in lifetime) entered on: 10/26/19 Sex
--- OUTSIDE RECORDS SUMMARY | 2024-07-06 12:05 | XMS_ITS | Continuity of Care Document ---
Author Organization [facility] Address [address] [place] [id number]- Care Team Providers Care Tip Stretcher Name Role Phone Jessica Perrin MD Primary Care Physician Encounter [facility] Date(s): 04/27/21 - 04/28/[address] [address]- Encounter Diagnosis Knee osteoarthritis(Final) - 04/28/21 Discharge Disposition: A-D/C Home Attending Physician: Ijeoma Charles MD Admitting Physician: Ijeoma Charles MD Referring Physician: Not on Staff, Referring [...] GIVEN 9Admin Note: GIVEN BY NURSE Medications Albuterol (Eqv-ProAir HFA) 90 mcg/inh inhalation aerosol 0 Refills, Maintenance, 04/28/21 2:37:00 EDT, Partial fill upon patient request if the prescriptionis for a schedule II opioid drug. Start Date: 04/28/21 Status: Ordered Alcohol Wipes See Instructions, # [...] 03/10/21 15:25:00 EDT, Route to Pharmacy Electronically, [facility] #[id number], 165, cm, 12/25/20 10:00:00 EDT, Height, 88, kg, 11/03/19 18:19:00... Start Date: 03/10/21 Status: Ordered calcium (as citrate)-vitamin D 315 mg-250 intl units oral tablet 2 tablet, By Mouth, 2 times a day, Tej, # 360 tablet, 3 Refills, Maintenance, 03/26/21 13:03:00 EDT, Tablet, [facility] #[id number], 2 tablet By Mouth 2 times a day,x90 days,Instr:Tej, 165, cm, 03/26/21 11:57:00 EDT, Height, 88, kg, 11/03/19 18... Start Date: 03/26/21 Stop Date: 03/21/22 Status: Ordered calcium (as citrate)-vitamin D 315 mg-250 intl units oral tablet 1 tablet, By Mouth, 2 times a day, # 60 tablet, 0 Refills, Maintenance, 04/28/21 2:37:00 EDT, Tablet, Partial fill upon patient request if the prescription is for a schedule II opioid drug. Start Date: 04/28/21 Status: Ordered celecoxib 100 mg oral capsule 1 capsule = 100 mg, By Mouth, 2 times a day, PRN knee pain, # 60 capsule, 5 Refills, Maintenance, 03/26/21 13:08:00 EDT, Capsule, [facility] #[id number], 165, cm, 03/26/21 11:57:00 EDT, Height, 88, kg, 11/03/19 18:19:00 EST, Dry Weight Start Date: 03/26/21 Status: Ordered celecoxib 100 mg oral capsule 1 capsule = 100 mg, By Mouth, 2 times a day, # 180 capsule, 0 Refills, Maintenance, 04/28/21 2:37:00 EDT, Capsule, Partial fill upon patient request if the prescription is for a schedule II opioid drug. Start Date: 04/28/21 Status: Ordered citalopram 20 mg oral tablet 1 tablet = 20 mg, By Mouth, Daily, # 30 tablet, 0 Refills, Maintenance, 04/28/21 2:37:00 EDT, Tablet, Partial fill upon patient request if the prescription is for a schedule II opioid drug. Start Date: 04/28/21 Status: Ordered citalopram 20 mg oral tablet 20 mg, 1, tablet, By Mouth, Daily, # 90 tablet, Refills 3, Tot. Refills 3, Maintenance, 07/01/20 17:44:00 EDT, Route to Pharmacy Electronically, [facility] #[id number], is awared of interaction w [email or web address], 165, cm, 11/03/19 18:19:00 EST, He... Start Date: 07/01/20 Status: Ordered Clarinex 5 mg oral tablet 1 tablet = 5 mg, By Mouth, Daily, Discontinue loratadine, # 30 tablet, 11 Refills, Maintenance, 03/26/21 13:02:00 EDT, Tablet, [facility] #[id number], 165, cm, 03/26/21 11:57:00 EDT, Height, 88,kg, 11/03/19 18:19:00 EST, Dry Weight Start Date: 03/26/21 Status: Ordered Colace sodium 100 mg oral capsule 100 mg, 1, capsule, By Mouth, 2 times a day, PRN, with plenty of water, # 180 capsule, Refills 3, Tot. Refills 3, Maintenance, as needed for constipation, 03/26/21 13:05:00 EDT, Route to Pharmacy Electronically, [facility] #[id number], Dispense o... Start Date: 03/26/21 Status: Ordered desloratadine 5 mg oral tablet 1 tablet = 5 mg, By Mouth, Daily, # 30 tablet, 0 Refills, Maintenance, 04/28/21 2:37:00 EDT, Tablet, Partial fill upon patient request if the prescription is for a schedule II opioid drug. Start Date: 04/28/21 Status: Ordered diltiazem 180 mg/24 hours oral capsule, extended release 360 mg, CD Capsule, By Mouth, 04/28/21 9:00:00 EDT Start Date: 04/28/21 Stop Date: 04/28/21 Status: Completed dilTIAZem 360 mg/24 hours oral tablet, extended release 1 tablet = 360 mg, By Mouth, Daily, # 60 tablet, 0 Refills, Maintenance, 04/28/21 2:38:00 EDT, ER Tablet, Partial fill upon patient request if the prescription is for a schedule II opioid drug. Start Date: 04/28/21 Status: Ordered dilTIAZem 360 mg/24 hours oral tablet, extended release 1 tablet = 360 mg, By Mouth, Daily, # 90 tablet, 3 Refills, Maintenance, 09/05/20 9:01:00 EST, [facility] #[id number], 165, cm, 11/03/19 18:19:00 EST, Height, 88, kg, 11/03/19 18:19:00 EST, Dry Weight Start Date: 09/05/20 Status: Ordered Dulera 200 mcg-5 mcg/inh inhalation aerosol 2 puffs, Inhalation, 2 times a day, # 13 Gm, 11 Refills, Maintenance, 08/10/20 16:21:00 EST, Aerosol, [facility] #[id number], 2 puffs Inhalation 2 times a day, 165, cm, 11/03/19 18:19:00 EST, Height, 88, kg, 11/03/19 18:19:00 EST, Dry Weight Start Date: 08/10/20 Status: Ordered EPINEPHrine 0.3 mg injectable solution = 0.3 mg, Intramuscular, Once, PRN Anaphylactic Reaction, # 1 each, 0 Refills, Soft Stop, 06/26/20 8:38:00 EDT, [facility] #[id number], 165, cm, 11/03/19 18:19:00 EST, Height, 88, kg, 11/03/19 18:19:00 EST, Dry Weight Start Date: 06/26/20 Status: Ordered fluticasone 50 mcg/inh nasal spray 1 sprays, Nares, Both, 2 times a day, 0 Refills, Maintenance, 04/28/21 2:37:00 EDT, [place], Partial fill upon patient request if the prescription is for a schedule II opioid drug. Start Date: 04/28/21 Status: Ordered fluticasone 50 mcg/inh nasal spray 2 sprays, Nares, Both, Daily, Use every day during allergy season. While using spray keep head down. 30 days not 90 days dispense when patient requested by patient, # 16 Gm, 5 Refills, Maintenance, 12/30/20 15:00:00 EDT, [facility] #[id number]... Start Date: 12/30/20 Status: Ordered hydrALAZINE 10 mg oral tablet 10 mg, 1, tablet, By Mouth, 3 times a day, # 90 tablet, Refills 0, Maintenance, 04/28/21 2:38:00 EDT, Partial fill upon patient request if the prescription is for a schedule II opioid drug. Start Date: 04/28/21 Status: Ordered hydrALAZINE 10 mg oral tablet 10 mg, Tablet, By Mouth, 04/28/21 9:00:00 EDT Start Date: 04/28/21 Stop Date: 04/28/21 Status: Completed hydrALAZINE 10 mg oral tablet 10 mg, 1, tablet, By Mouth, 2 times a day, decrease dose, # 180 tablet, Refills 3, Tot. Refills 3, Maintenance, 06/26/20 8:44:00 EDT, Route to Pharmacy Electronically, [facility] #[id number], 165, cm, 11/03/19 18:19:00 EST, Height, 88, kg, ... Start Date: 06/26/20 Stop Date: 06/21/21 Status: Ordered hydrochlorothiazide-lisinopril 25 mg-20 mg oral tablet 1 tablet, By Mouth, Daily, # 90 tablet, 3 Refills, Maintenance, 12/25/20 11:11:00 EDT, Tablet, [facility] #[id number], 90 days, 1 tablet By Mouth Daily, 165, cm, 12/25/20 10:00:00 EDT, Height, 88, kg, 11/03/19 18:19:00 EST, Dry Weight Start Date: 12/25/20 Status: Ordered hydrochlorothiazide-lisinopril 25 mg-20 mg oral tablet 1 tablet, By Mouth, Daily, # 30 tablet, 0 Refills, Maintenance, 04/28/21 2:38:00 EDT, Tablet, Partial fill upon patient request if the prescription is for a schedule II opioid drug. Start Date: 04/28/21 Status: Ordered Lancets See Instructions, # 50 [...] tablet = 50 mcg, By Mouth, Daily, # 60 tablet, 0 Refills, Maintenance, 04/28/21 2:38:00 EDT, Tablet, Partial fill upon patient request if the prescription is for a schedule II opioid drug. Start Date: 04/28/21 Status: Ordered levothyroxine 0.05 mg oral tablet 1 tablet = 50 mcg, By Mouth, Daily, 90 days supply, # 90 tablet, 1 Refills, Maintenance, 03/04/21 10:16:00 EDT, [facility] #[id number], 165, cm, 12/25/20 10:00:00 EDT, Height, 88, kg, 11/03/19 18:19:00 EST, Dry Weight Start Date: 03/04/21 Status: Ordered metFORMIN 500 mg oral tablet 1 tablet = 500 mg, By Mouth, 2 times a day, # 180 tablet, 0 Refills, Maintenance, 04/28/21 2:38:00 EDT, Tablet, Partial fill upon patient request if the prescription is for a schedule II opioid drug. Start Date: 04/28/21 Status: Ordered metFORMIN 500 mg oral tablet 1 tablet, By Mouth, 2 times a day, # 180 tablet, 3 Refills, Maintenance, 09/16/20 17:27:00 EST, [facility] #[id number], 165, cm, 11/03/19 18:19:00 EST, Height, 88, kg, 11/03/19 18:19:00 EST, DryWeight Start Date: 09/16/20 Status: Ordered mirtazapine 15 mg oral tablet 1 tablet = 15 mg, By Mouth, Daily at bedtime, # 90 tablet, 0 Refills, Maintenance, 04/28/21 2:38:00EDT, Tablet, Partial fill upon patient request if the prescription is for a schedule II opioid drug. Start Date: 04/28/21 Status: Ordered montelukast 10 mg oral tablet 10 mg, 1, tablet, By Mouth, Daily in PM, # 30 tablet, Refills 0, Maintenance, 04/28/21 2:37:00 EDT,Partial fill upon patient request if the prescription is for a schedule II opioid drug. Start Date: 04/28/21 Status: Ordered nystatin topical 442298 u/gm powder 1 application, Topically, 2 times a day, # 60 Gm, 1 Refills, Maintenance, 03/26/21 13:25:00 EDT, Powder, [facility] #[id number], Partial fill upon patient request if the prescription is for a schedule II opioid drug., 1 application Topically 2 ti... Start Date: 03/26/21 Status: Ordered Nystop 703701 u/gm powder 1 application, Topically, 2 times a day, # 60 Gm, 0 Refills, Maintenance, 04/28/21 2:38:00 EDT, Powder, Partial fill upon patient request if the prescription is for a schedule II opioid drug. Start Date: 04/28/21 Status: Ordered [id number]-[id number]-[id number] medical-grade oxford diabetic shoes, depth or hightop Uaw-cht-yxxic medical-grade oxford diabetic shoes, depth or hightop, See Instructions, # 1 each, Refills 0, Tot. 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 Start Date: 12/25/20 Status: Ordered omeprazole 20 mg oral enteric coated capsule 1 capsule = 20 mg, By Mouth, Daily, # 30 capsule, 0 Refills, Maintenance, 04/28/21 2:37:00 EDT, EC Capsule, Partial fill upon patient request if the prescription is for a schedule II opioid drug. Start Date: 04/28/21 Status: Ordered oxyCODONE 5 mg oral tablet 5 mg, Tablet, By Mouth, Once, PRN for Pain , Moderate, STAT, 04/28/21 10:02:00 EDT Start Date: 04/28/21 Stop Date: 04/28/21 Status: Completed oxyCODONE 5 mg oral tablet 5 mg, 1, tablet, By Mouth, Every 6 hours, PRN, for 3 days, # 20 tablet, Refills 0, Tot. Refills 0, Acute 05/01/21 11:49:00 EDT, for pain, 04/28/21 11:49:00 EDT, Route to Pharmacy Electronically, [facility] #[id number], Partial fill upon patient r... Start Date: 04/28/21 Stop Date: 05/01/21 Status: Ordered pravastatin 80 mg oral tablet 1 tablet = 80 mg, By Mouth, Daily, 90 days, # 90 tablet, 3 Refills, Maintenance, 12/25/20 11:15:00 EDT, Tablet, [facility] #[id number], 165, cm, 12/25/20 10:00:00 EDT, Height, 88, kg, 11/03/19 18:19:00 EST, Dry Weight Start Date: 12/25/20 Status: Ordered pravastatin 80 mg oral tablet 1 tablet = 80 mg, By Mouth, Daily, # 30 tablet, 0 Refills, Maintenance, 04/28/21 2:37:00 EDT, Tablet, Partial fill upon patient request if the prescription is for a schedule II opioid drug. Start Date: 04/28/21 Status: Ordered Premarin Vaginal 0.625 mg/gm cream with applicator = 0.5 Gm, Vaginally, Every Wednesday and , # 42.5 Gm, 11 Refills, Maintenance, 03/26/21 13:01:00 EDT, [facility] #[id number], 0.5 Gm Vaginally Every Wednesday and , 165, cm, 03/26/21 11:57:00 EDT, Height, 88, kg, 11/03/19 18:19:00 EST,... Start Date: 03/26/21 Status: Ordered Premarin Vaginal 0.625 mg/gm cream with applicator APPLY 1/2 GRAM IN THE VAGINA EVERY WEDNESDAY AND WEDNESDAY Start Date: 04/28/21 Status: Ordered PriLOSEC OTC 20 mg oral delayed release tablet 1 tablet = 20 mg, By Mouth, Daily, Take 30 mins before breakfast, # 90 tablet, 2 Refills, Maintenance, 04/08/21 10:07:00 EDT, [facility] #[id number], is awared of interaction with citalopram;Duplicate rx; original sent 12/25/20. Remaining r... Start Date: 04/08/21 Status: Ordered Remeron 15 mg oral tablet 0.5 tablet = 7.5 mg, By Mouth, Daily at bedtime, Decreased dose, # 45 tablet, 3 Refills, Maintenance, 03/26/21 13:13:00 EDT, Tablet, [facility] #[id number], 165, cm, 03/26/21 11:57:00 EDT, Height, 88, [...] 12/25/20 11:14:00 EDT, Route to Pharmacy Electronically, [facility] #[id number], 165, cm, 12/25/20 10:00:00 EDT, Height, 88, kg, 02... Start Date: 12/25/20 Status: Ordered Sinus rinse Sinus rinse, See Instructions, # 1 each, Refills 0, Tot. Refills 0, Maintenance, Use daily to flusheach nostril, allergic rhinitis, 03/02/18 8:23:36 EDT, Compound Start Date: 03/02/18 Status: Ordered terbinafine 250 mg oral tablet [...] Gm, 5 Refills, Maintenance, 03/26/21 13:06:00 EDT, [facility] #[id number]... 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 Pt states she has arthritis, saw MD this past weeks and got u s of knees, results not back yet. Pt fell today, has 10 10 pain on back of right knee. Pt wearing brace on arrival. +2 pulse palp bilat LE; Reason: Trauma; with Pain; Clinical Question(s): Fracture. TECHNIQUE: Frontal and crosstable lateral views of the RIGHT knee are obtained. COMPARISONS: RIGHT knee November 03, 2019. FINDINGS: Bones and joints: No fracture or dislocation. Mild osteophyte formation and joint space narrowing in the medial and lateral compartments. Mild to moderate enthesopathy (calcification at ligament and tendon insertion sites) in the upper and lower poles of the patella. New, very small suprapatellar effusion. Soft Tissues: Regional soft tissues are unremarkable. No evidence of radiopaque foreign body. IMPRESSION: 1. No evidence of acute bony injuries. 2. Mild osteoarthritis medial and lateral compartments unchanged. 3. Very small suprapatellar effusion, new. Thank you for allowing me to participate in the care of this patient. WSN: [id number] Ordering Physician: Germaine Rossi Dictated By: Skip Tapia MD Dictated Date/Time: 04/28/21 0:07 am Reviewed By: Skip Tapia MD Signed By: Skip Tapia MD Signed Date/Time: 04/28/21 0:07 am Transcribed By: SAJAN Transcribed Date/Time: 04/28/21 0:05 am Vital Signs Most recent to oldest [Reference Range]: 1 2 3 4 Oxygen Saturation [94-100 %] 100 % (04/28/21 12:13 PM) 95 % (04/28/21 10:55 AM) 96 % (04/28/21 7:25 AM) Pulse Rate [55-90 bpm] 67 bpm (04/28/21 12:13 PM) 66 bpm (04/28/21 10:55 AM) 71 bpm (04/28/21 8:40 AM) Blood Pressure [90-138/55-84 mm Hg] 159/95mm Hg *H* (04/28/21 12:13 PM) 180/69mm Hg *H* (04/28/21 10:55 AM) 184/73mm Hg *H* (04/28/21 8:40 AM) 184/73mm Hg *H* (04/28/21 8:40 AM) Respiratory Rate [16-30 br/min] 18 br/min (04/28/21 12:13 PM) 16 br/min (04/28/21 10:55 AM) 16 br/min (04/28/21 10:33 AM) Temperature [96.8-100.4 DegF] 98.6 DegF (04/28/21 12:13 PM) 98.2 DegF (04/28/21 10:55 AM) 98.2 DegF (04/28/21 7:25 AM) Mode of Delivery (Oxygen) Room air (04/28/21 12:13 PM) Room air (04/28/21 10:55 AM) Room air (04/28/21 7:25 AM) Blood pressure sites Arm, left (04/28/21 12:13 PM) Arm, left (04/28/21 10:55 AM) Arm, left (04/28/21 7:25 AM) Temperature Route Oral (04/28/21 12:13 PM) Oral (04/28/21 10:55 AM) Oral (04/28/21 7:25 AM) Social History Social History Type Response Smoking Status Never (less than 100 in lifetime) entered on: 03/26/21 Sex
--- OUTSIDE RECORDS SUMMARY | 2024-07-06 12:05 | XMS_ITS | Continuity of Care Document ---
Author Organization [facility] Address [address] [place] [address]- Care Team Providers Care Trainer Name Role Phone Marychuy MCCLAIN, Jessica Primary Care Physician Encounter [facility] Date(s): 01/12/23 - 01/12/[address] [address]- Discharge Disposition: A-D/C Home Attending Physician: Flavio Fair MD Admitting Physician: Flavio Fair MD Referring Physician: Not on Staff, Referring [...] Vaccine Date Status Refusal Reason SARS-CoV-2 mRNA (srhgwem-vhye-lssza) vax 02/17/22 Given influenza virus vaccine, inactivated [...] tablet, 11 Refills, Maintenance, 05/13/22 11:27:00 EDT, [facility] #[id number], Partial fill upon cherelle... Start Date: 05/13/22 Status: Ordered albuterol 0.083% inhalation solution 3 mL = 2.5 mg, Inhalation, Every 6 hours, # 25 each, 5 Refills, Maintenance, 08/12/22 15:02:00 EST,[facility] #[id number], 165, cm, 06/18/22 13:19:00 EDT, Height, 88.9, kg, 02/09/22 15:14:00 EDT, Dry Weight Start Date: 08/12/22 Stop Date: 02/08/23 Status: Ordered apixaban 5 mg oral tablet 1 tablet = 5 mg, By Mouth, 2 times a day, # 180 tablet, 0 Refills, Maintenance, 12/16/22 16:34:00 EDT, Tablet, [facility] #[id number], Partial fill upon patient request if the prescription is for a schedule II opioid drug., 163, cm, 12/16/22 7:58... Start Date: 12/16/22 Stop Date: 03/16/23 Status: Ordered budesonide 0.5 mg/2 mL inhalation suspension 0.5 mg, 2, mL, Neb, 2 times a day, # 120 mL, Refills 11, Tot. Refills 11, Maintenance, 10/16/22 16:58:00 EST, Suspension, Route to Pharmacy Electronically, [id number], [facility] #[id number], 163, cm, 10/16/22 16:21:00 E... Start Date: 10/16/22 Status: Ordered budesonide 0.5 mg/2 mL inhalation suspension 0.5 mg, 2, mL, Neb, 2 times a day, # 120 mL, Refills 11, Tot. Refills 11, Maintenance, 08/13/22 15:24:00 EST, Suspension, Route to Pharmacy Electronically, [id number], [facility] #80136, 165, cm, 06/18/22 13:19:00 E... Start Date: 08/13/22 Status: Ordered calcium (as citrate)-vitamin D 315 mg-250 intl units oral tablet 2 tablet, By Mouth, 2 times a day, # 360 tablet, 0 Refills, Maintenance, 12/07/22 14:46:00 EDT, [facility] #[id number], 90, 2 tablet By Mouth 2 times a day, 163, cm, 11/05/22 16:59:00 EST, Height, 90, kg, 11/05/22 16:59:00 EST, Dry Weight Start Date: 12/07/22 Status: Ordered citalopram 20 mg oral tablet 20 mg, 1, tablet, By Mouth, Daily, # 90 tablet, Refills 3, Tot. Refills 3, Maintenance, 07/08/22 14:31:00 EDT, Route to Pharmacy Electronically, [facility] #[id number], is awared of interaction w roseannalosec, 165, cm, 06/18/22 13:19:00 EDT, He... Start Date: 07/08/22 Status: Ordered Clarinex 5 mg oral tablet 1 tablet = 5 mg, By Mouth, Daily, # 90 tablet, 3 Refills, Maintenance, 04/29/22 12:53:00 EDT, Tablet, [facility] #[id number], 165, cm, 02/23/22 14:24:00 EDT, Height, 88.9, [...] 0 Refills, Soft Stop, 10/22/21 10:11:00 EST, [facility] #43902, 165, cm, 10/22/21 9:05:00 EST, Height, 89.5, kg, 04/23/2121:43:00 EDT, Dry Weight Start Date: 10/22/21 Status: Ordered fluticasone 50 mcg/inh nasal spray See Instructions, SPRAY 2 TIMES IN EACH NOSTRILS EVERY DAY. NEEDED FOR ALLERGY SEASON. WHEN SPRAYING KEEP HEAD DOWN, # 16 Gm, 11 Refills, 02/17/22 13:14:00 EDT, [facility] #85255, 30, SPRAY 2 TIMES IN EACH NOSTRILS EVERY DAY. NEEDED FO... Start Date: 02/17/22 Status: Ordered formoterol 10 mcg/mL inhalation solution 2 mL = 20 mcg, Inhalation, 2 times a day, using a continuous flow nebulizer, # 120 mL, 11 Refills, Maintenance, 10/16/22 16:58:00 EST, Solution, [facility] #[id number], Partial fill upon patientrequest if the prescription [...] 11/05/22 17:53:00 EST, Route to Pharmacy Electronically, [facility] #54420, Partial fill upon patient request if the prescription is for a schedule II opi... Start Date: 11/05/22 Stop Date: 11/10/22 Status: Ordered gabapentin 300 mg oral capsule 300 mg, 1, capsule, By Mouth, 2 times a day, PRN, # 20 capsule, Refills 0, Tot. Refills 0, Maintenance, Pain , Severe, 11/05/22 17:53:00 EST, Route to Pharmacy Electronically, [facility] #43194, Partial fill upon patient request if the presc... Start Date: 11/05/22 Stop Date: 11/15/22 Status: Ordered hydrALAZINE 25 mg oral tablet 25 mg, 1, tablet, By Mouth, 3 times a day, discontinue hydralazine 10mg, # 90 tablet, Refills 11, Tot. Refills 11, Maintenance, 06/18/22 13:56:00 EDT, Route to Pharmacy Electronically, [facility] #[id number], Partial fill upon patient request if... Start [...] tablet, 11 Refills, Maintenance, 09/30/22 12:56:00 EST, [facility] #79740, 163, cm, 09/30/22 11:48:00 EST, Height, 92.8, kg, 09/24/22 22:19:00 EST, Dry Weight Start Date: 09/30/22 Status: Ordered lisinopril 40 mg oral tablet 1 tablet = 40 mg, By Mouth, 2 times a day, increase dose discontinue HCTZ 12.5mg, # 60 tablet, 11 Refills, Maintenance, 09/30/22 12:54:00 EST, Tablet, [facility] #72752, 163, cm, 09/30/22 11:48:00 EST, Height, 92.8, kg, 09/24/22 22:19:00... Start Date: 09/30/22 Stop Date: 09/25/23 Status: Ordered Matzim LA 360 mg/24 hours oral tablet, extended release 1 tablet, By Mouth, Daily, # 90 tablet, 3 Refills, 02/17/22 13:08:00 EDT, [facility] #46830, 165, cm, 02/17/22 12:49:00 EDT, Height, 88.9, kg, 02/09/22 15:14:00 EDT, Dry Weight Start Date: 02/17/22 Status: Ordered metFORMIN 500 mg oral tablet, extended release 1 tablet = 500 mg, By Mouth, Daily in AM, discontinue metformin 500mg with meal, # 30 tablet, 11 Refills, Maintenance, 09/30/22 12:51:00 EST, ER Tablet, [facility] #90764, 163, cm, 09/30/2310:48:00 EST, Height, 92.8, kg, 09/24/22 22:1... Start Date: 09/30/22 Status: Ordered mirtazapine 15 mg oral tablet 0.5 tablet, By Mouth, Daily at bedtime, DECREASED DOSE, # 45 tablet, 1 Refills, Maintenance, 10/20/22 20:06:00 EST, [facility] #[id number], 163, cm, 10/16/22 16:21:00 EST, Height, 92.8, kg, 09/24/22 22:19:00 EST, Dry Weight Start Date: 10/20/22 Status: Ordered montelukast 10 mg oral tablet 1, tablet, By Mouth, Daily at bedtime, SUPPLY., # 90 tablet, Refills 1, Tot. Refills 1, Maintenance, 12/07/22 14:50:00 EDT, Route to Pharmacy Electronically, [facility] #[id number], 163, cm, 11/05/22 16:59:00 EST, Height, 90, kg, 11/05/22 16:59:0... Start Date: 12/07/22 Stop Date: 06/05/23 Status: Ordered Enp-vou-myuoa medical-grade oxford diabetic shoes, depth or hightop Skv-djt-mgjet medical-grade oxford diabetic shoes, depth or hightop, [...] Refills, Maintenance, 12/07/22 14:49:00 EDT, EC Capsule, [facility] #14646, 163, cm, 11/05/22 16:59:00 EST,... Start Date: 12/07/22 Status: Ordered pravastatin 80 mg oral tablet 1 tablet, By Mouth, Daily, # 90 tablet, 1 Refills, Maintenance, 12/07/22 14:47:00 EDT, [facility] #34507, 163, cm, 11/05/22 16:59:00 EST, Height, 90, kg, 11/05/22 16:59:00 EST, Dry Weight Start Date: 12/07/22 Status: Ordered Premarin Vaginal 0.625 mg/gm cream with applicator See Instructions, APPLY 1/2 GRAM IN THE VAGINA EVERY WEDNESDAY AND WEDNESDAY, # 30 Gm, 11 Refills, Maintenance, 05/11/22 14:58:00 EDT, [facility] #52751, 30, APPLY 1/2 GRAM IN THE VAGINA EVERY WEDNESDAY AND WEDNESDAY, 165, cm, 02/23/22 14:24:00 EDT,... Start Date: 05/11/22 Status: Ordered ProAir HFA 90 mcg/inh inhalation aerosol with adapter 2, puffs, Inhalation, 4 times a day, PRN, # 1 each, Refills 11, Tot. Refills 11, Maintenance, 10/16/22 17:00:00 EST, Route to Pharmacy Electronically, [id number], [facility] #32011, 163, cm, 10/16/22 16:21:00 EST, H... 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 Francis Malinarnacion Confirmed Active Severe obesity (BMI [...] recent to oldest [Reference Range]: 1 2 Height 160 cm (01/12/23 6:39 PM) 160 cm (01/12/23 5:52 PM) Weight 90.4 kg (01/12/23 6:39 PM) 90.4 kg (01/12/23 5:52 PM) Oxygen Saturation [94-100 %] 97 % (01/12/23 6:39 PM) 97 % (01/12/23 5:52 PM) Pulse Rate [55-90 bpm] 76 bpm (01/12/23 6:39 PM) 76 bpm (01/12/23 5:52 PM) Body Mass Index [18.5-24.99 kg/m2] 35.31 kg/m2 *>HHI* (01/12/23 6:39 PM) Blood Pressure [90-138/55-84 mm Hg] 143/ 59mm Hg *H* (01/12/23 6:39 PM) 152/54mm Hg *H* (01/12/23 5:52 PM) Respiratory Rate [16-30 br/min] 18 br/mi n (01/12/23 5:52 PM) Temperature [96.8-100.4 DegF] 97.8 DegF (01/12/23 5:52 PM) Mode of Delivery (Oxygen) Room air (01/12/23 6:39 PM) Room air (01/12/23 5:52 PM) Blood pressure sites Arm, left (01/12/23 6:39 PM) Temperature Route Oral (01/12/23 5:52 PM) Dry Weight 90.4 kg (01/12/23 6:39 PM) 90.4 kg (01/12/23 5:52 PM) Weight Obtained Via Standing scale (01/12/23 5:52 PM) Dry Weight Obtained Via Standing scale (01/12/23 5:52 PM) Social History Social History Type Response Smoking Status Never (less than 100 in lifetime) entered on: 03/26/21 Sex Note * Manjula MCCLAIN, Flavio Dias: PERFORM Event Display: Patient Education Leaflets Authored Date: [id number] Contact Dermatitis ?? [id number] Dermatitis de contacto La dermatitis de contacto es un sarpullido en la piel causado por algo que, al tocar la piel, la irrit?? y la inflam??. Es posible que tenga la piel enrojecida, inflamada, seca y agrietada. Pueden formarse ampollas y supurar. Adem??s, el sarpullido rafia?? picaz??n. La dermatitis de contacto frecuentemente se da en la sofia y el alyssa, el dorso de las live, los antebrazos, los genitales y la parte inferior de las piernas. Ziyad puede afectar cualquier ??jamie. Las personas pueden tener dermatitis de contacto por diferentes causas. Puede desarrollarse debido a alguna de las siguientes razones: ??? Plantas marialuisa la hiedra venenosa, el nazario venenoso o el zumaque venenoso ??? Productos qu??micos en los tintes y enjuagues para el manuela, los jabones, los solventes, las ceras, el esmalte para u??as y los desodorantes? Alhajas o pulseras de reloj que contienen n??quel o cobalto ??? Goma (incluido el l??jennifer) ??? Fragancias (de perfumes, labiales, maquillaje y jabones) La dermatitis de contacto no se contagia de deanna persona a otra. Hable con randle proveedor de atenci??n m??dica sobre las posibles causas de randle sarpullido. Pueden realizarle la prueba de parches, un tipo de prueba de alergia, para descubrir a qu?? tiene alergia. En el futuro, deber?? mantenerse alejado de la causa de randle sarpullido para evitar que vuelva a aparecer. El tratamiento se hace para aliviar la picaz??n y evitar que el sarpullido aparezca otra vez. El sarpullido deber??a irse al cabo de entre unos pocos d??as y algunas semanas. Cuidados en el hogar El proveedor de atenci??n m??dica puede recetarle medicamentos para aliviar la hinchaz??n y la picaz??n. Siga todas las instrucciones para usar estos medicamentos. Cuidados generales ??? Mant??ngase alejado de todo aquello que caliente randle piel; por ejemplo, las duchas o los ba??os calientes, o la zachary directa jana. [place] puede empeorar la picaz??n. ??? Apl??quese compresas fr??as para calmar willis lesiones. Eso ayudar?? a aliviar willis s??ntomas. H??ashley por 30 minutos entre kim y cuatro veces por d??a. Puede preparar hipolito compresa empapando un pa??o con agua fr??a. Escurra el agua excedente. Puede agregarle harina de eusebio al agua para ayudar a disminuir la picaz??n. Si tienepicaz??n muy coral en deanna chico chencho??a, apl??quese deanna compresa de hielo envuelta en deanna toalla delgada. Max esto por 20 minutos entre kim y cuatro veces al d??a. ??? Tambi??n puede probar con vendajes h??medos. Deanna manera de hacerlo es usar deanna prenda de vestir h??augusta debajo de deanna seca. Si la parte de randle cuerpo afectada es la superior, use deanna camiseta h??augusta debajo de deanna camiseta seca. Eso puede aliviar la picaz??n y evitar que se rasque la chico afectada. ??? Tambi??n puede ayudar a aliviar zonas grandes de picaz??n tomando un ba??o tibio. Agr??guele harina de eusebio al agua de eve ba??o para un mayor alivio. ??? Use deanna crema con hidrocortisona para el enrojecimiento y la irritaci??n, a menos que le hayan indicado otro medicamento. La loci??n de calamina tambi??n puede aliviar s??ntomas leves. ??? Use difenhidramina oral para ayudar a reducir la picaz??n. Puede comprar garth ant ihistam??alma en farmacias y tiendas de comestibles. Puede que le cause somnolencia. Por eso, use dosis m??s chencho??as shaneka el d??a. No use difenhidramina si tiene glaucoma o problemas al orinar por un agrandamiento de la pr??stata. ??? Si randle sarpullido se debe a deanna planta, aseg??rese de lavarse la piel y la ropa que usaba cuando sena?? la planta. Max esto para quitarse los aceites de la planta que le provocaron el sarpullido y para evitar m??s s??ntomas o s??ntomas peores. Si tiene deanna mascota que chavez estado al aire nurys, es posible que el pelaje tenga aceite de la planta. Ba??e a la mascota con jab??n o champ??. ??? Permanezca alejado de la sustancia o el objeto que le causa los s??ntomas. Si no puede hacerlo, use guantes o alg??n otro tipo de protecci??n ?? Visita de seguimiento Asista a los controles con randle proveedor de atenci??n m??dica seg??n le hayan indicado. ?? Cu??ndo debe buscar atenci??n m??dica Llame a randle proveedor de atenci??n m??dica de inmediato ante cualquiera de las siguientes situaciones: ??? El sarpullido se extiende a otras partes de randle cuerpo ??? Hinchaz??n grave en el cecilia, los p??rpados, la boca, la garganta o la lengua ??? Dificultades para orinar por la hinchaz??n en la chico genital ??? Fiebre de 100.4?F (38?C) o superior, o seg??n le indique randle proveedor ??? Enrojecimiento o hinchaz??n que empeoran ??? Dolor que empeora ??? Sale un l??quido maloliente de la piel ??? Costras de color carlton??n amarillento sobre las ampollas abiertas ?? Last Reviewed Date: 2021 ?? [id number] [employer]. Todos los derechos reservados. Esta informaci??n no pretende sustituir la atenci??n m??dica profesional. S??lo randle m??dico puede diagnosticar y tratar un problema de leydi. ?? Patient Care team information Care Team Personnel Name: Haley Gonzalez RN Position: [facility] RN Member Role: Primary Care Nurse Name: Jessica Perrin MD Position: [facility] Primary Care Physician Member Role: PCP Address: Address: [address] [place] [address] Name: Genevieve Hernandez Position: [facility] ED OA Member Role: Transportation Superintendent Name: Abhilashjarad Vee Position: [facility] ED RN W/OE and Tasks Member Role: Patient Care Provider Name: Flavio Fair MD Position: [facility] ED Medicine MD Member Role: Admitting Physician Address: Address: [address] [place] [address]- [place] Care Team Related Persons Name: SNADY BOYCE Address: home [address] [place] [address] Name: KOFI BOYCEPERTO Address: [address] [place] [address]
--- OUTSIDE RECORDS SUMMARY | 2024-07-06 12:05 | XMS_ITS | Continuity of Care Document ---
Author Organization [facility] ter Address [address] [place] [address]- Care Team Providers Care Construction Flagger Name Role Phone Jessica Perrin MD Primary Care Physician [place] [facility] [place] - 07/20[place] [address] Attending Physician: Jessica Perrin MD Admitting Physician: [...] Vaccine Date Status Refusal Reason SARS-CoV-2 mRNA (lwshrrm-xjeq-jnlpm) vax 02/17/22 Given influenza virus vaccine, inactivated [...] tablet, 11 Refills, Maintenance, 05/13/22 11:27:00 EDT, [facility] #[id number], Partial fill upon cherelle... Start Date: 05/13/22 Status: Ordered albuterol 0.083% inhalation solution 3 mL = 2.5 mg, Inhalation, Every 6 hours, # 25 each, 2 Refills, Maintenance, 05/13/22 11:31:00 EDT,[facility] #[id number], 165, cm, 05/13/22 10:23:00 EDT, Height, 88.9, kg, 02/09/22 15:14:00 EDT, Dry Weight Start Date: 05/13/22 Stop Date: 08/11/22 Status: Ordered budesonide 0.5 mg/2 mL inhalation suspension 0.5 mg, 2, mL, Neb, 2 times a day, # 120 mL, Refills 5, Tot. Refills 5, Maintenance, 02/11/22 14:27:00 EDT, Suspension, Route to Pharmacy Electronically, [id number], [facility] #[id number], 165, cm, 02/09/22 15:14:00 EDT... Start Date: 02/11/22 Status: Ordered calcium (as citrate)-vitamin D 315 mg-250 intl units oral tablet 2 tablet, By Mouth, 2 times a day, # 360 tablet, 0 Refills, [facility] #[id number], 90, TAKE 2TABLETS BY MOUTH TWICE DAILY, 165, cm, 02/23/22 14:24:00 EDT, Height, 88.9, kg, 02/09/22 15:14:00 EDT, Dry Weight Start Date: 04/01/22 Status: Ordered citalopram 20 mg oral tablet 20 mg, 1, tablet, By Mouth, Daily, # 90 tablet, Refills 3, Tot. Refills 3, Maintenance, 07/08/22 14:31:00 EDT, Route to Pharmacy Electronically, [facility] #[id number], is awared of interaction w nicky, 165, cm, 06/18/22 13:19:00 EDT, He... Start Date: 07/08/22 Status: Ordered Clarinex 5 mg oral tablet 1 tablet = 5 mg, By Mouth, Daily, # 90 tablet, 3 Refills, Maintenance, 04/29/22 12:53:00 EDT, Tablet, [facility] #[id number], 165, cm, 02/23/22 14:24:00 EDT, Height, 88.9, [...] 0 Refills, Soft Stop, 10/22/21 10:11:00 EST, [facility] #[id number], 165, cm, 10/22/21 9:05:00 EST, Height, 89.5, kg, 04/23/2121:43:00 EDT, Dry Weight Start Date: 10/22/21 Status: Ordered fluticasone 50 mcg/inh nasal spray See Instructions, SPRAY 2 TIMES IN EACH NOSTRILS EVERY DAY. NEEDED FOR ALLERGY SEASON. WHEN SPRAYING KEEP HEAD DOWN, # 16 Gm, 11 Refills, 02/17/22 13:14:00 EDT, [facility] #[id number], 30, SPRAY 2 TIMES IN EACH NOSTRILS EVERY DAY. NEEDED FO... Start Date: 02/17/22 Status: Ordered formoterol 10 mcg/mL inhalation solution 2 mL = 20 mcg, Inhalation, 2 times a day, using a continuous flow nebulizer, # 60 each, 5 Refills, Maintenance, 02/11/22 14:28:00 EDT, Solution, [facility] #[id number], 165, cm, 02/09/22 15:14:00 EDT, Height, 88.9, [...] 06/18/22 13:56:00 EDT, Route to Pharmacy Electronically, [facility] #[id number], Partial fill upon patient request if... Start Date: 06/18/22 Status: Ordered hydrochlorothiazide 12.5 mg oral tablet 1 tablet = 12.5 mg, By Mouth, Daily, discontinue HCTZ/lisinopril 25mg /20mg, # 30 tablet, 11 Refills, Maintenance, 10/29/21 13:48:00 EST, Tablet, [facility] #[id number], 165, cm, 10/29/21 12:16:00 EST, Height, 89.5, kg, 04/23/21 21:43:00 EDT, . Start Date: 10/29/21 Status: Ordered levothyroxine 0.05 mg oral tablet 1 tablet, By Mouth, Daily, # 90 tablet, 1 Refills, Maintenance, 05/20/22 16:09:00 EDT, [facility] #[id number], 165, cm, 05/20/22 16:02:00 EDT, Height, 88.9, kg, 02/09/22 15:14:00 EDT, Dry Weight Start Date: 05/20/22 Status: Ordered lisinopril 40 mg oral tablet 1 tablet = 40 mg, By Mouth, Daily, discontinue HCTZ/lisinopril 25mg /20mg, # 30 tablet, 11 Refills,Maintenance, 10/29/21 13:47:00 EST, Tablet, [facility] #[id number], Partial fill upon patient request if the prescription is for a schedule II op... Start Date: 10/29/21 Status: Ordered Matzim LA 360 mg/24 hours oral tablet, extended release 1 tablet, By Mouth, Daily, # 90 tablet, 3 Refills, 02/17/22 13:08:00 EDT, [facility] #[id number], 165, cm, 02/17/22 12:49:00 EDT, Height, 88.9, kg, 02/09/22 15:14:00 EDT, Dry Weight Start Date: 02/17/22 Status: Ordered metFORMIN 500 mg oral tablet 1 tablet, By Mouth, 2 times a day, # 180 tablet, 3 Refills, Maintenance, 10/13/21 14:33:00 EST, [facility] #[id number], 165, cm, 04/23/21 21:43:00 EDT, Height, 89.5, kg, 04/23/21 21:43:00 EDT, Dry Weight Start Date: 10/13/21 Status: Ordered mirtazapine 15 mg oral tablet 0.5 tablet, By Mouth, Daily at bedtime, DECREASED DOSE., # 45 tablet, 1 Refills, Maintenance, 05/12/22 9:17:00 EDT, [facility] #[id number], 165, cm, 02/23/22 14:24:00 EDT, Height, 88.9, kg, 02/09/22 15:14:00 EDT, Dry Weight Start Date: 05/12/22 Status: Ordered montelukast 10 mg oral tablet 1, tablet, By Mouth, Daily at bedtime, SUPPLY., # 90 tablet, Refills 1, Maintenance, 06/18/22 14:04:00 EDT, Route to Pharmacy Electronically, [facility] #[id number], 165, cm, 06/18/22 13:19:00 EDT, Height, 88.9, kg, 02/09/22 15:14:00 EDT, Dry Weight Start Date: 06/18/22 Stop Date: 09/16/22 Status: Ordered Zce-hzc-mcsum medical-grade oxford diabetic shoes, depth or hightop Jxe-fml-okvzt medical-grade oxford diabetic shoes, depth or hightop, [...] Refills, Maintenance, 12/18/21 15:48:00 EDT, EC Capsule, [facility], 165, cm, 10/29/21 12:16:00 EST,... Start Date: 12/18/21 Status: Ordered Paxlovid 150 mg-100 mg (150 mg-100 mg Dose) oral tablet See Instructions, Three tablets by mouth BID as per package directions, # 1 pack/packet, 0 Refills,Acute 06/11/23 9:38:00 EDT, 06/10/22 9:37:00 EDT, [facility] #[id number], Partial fill upon patient request if the prescription is for a schedule... Start Date: 06/10/22 Stop Date: 06/11/23 Status: Ordered pravastatin 80 mg oral tablet 1 tablet, By Mouth, Daily, # 90 tablet, 1 Refills, Maintenance, 06/27/22 12:04:00 EDT, [facility] #[id number], 165, cm, 06/18/22 13:19:00 EDT, Height, 88.9, kg, 02/09/22 15:14:00 EDT, Dry Weight Start Date: 06/27/22 Status: Ordered Premarin Vaginal 0.625 mg/gm cream with applicator See Instructions, APPLY 1/2 GRAM IN THE VAGINA EVERY WEDNESDAY AND WEDNESDAY, # 30 Gm, 11 Refills, Maintenance, 05/11/22 14:58:00 EDT, [facility] #[id number], 30, APPLY 1/2 GRAM IN THE VAGINA [...] Gm, 5 Refills, Maintenance, 05/13/22 11:27:00 EDT, [facility] #[id number], Partial fill upon patient request if the [...] 4, 5, 6, 7 Confirmed 08/09/06 Active *[id number] 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
--- OUTSIDE RECORDS SUMMARY | 2024-07-06 12:05 | XMS_ITS | Continuity of Care Document ---
Author Organization [facility] Address [address] [place] [id number]- Care Team Providers Care Hooker Machine Tender Name Role Phone Marychuy MCCLAIN, Jessica Primary Care Physician Encounter [facility] Date(s): 12/21/23 - 01/20/24 [facility]/[address] [address]- Allergies, Adverse Reactions, Alerts Substance Reaction Severity [...] virus vaccine, inactivated 5 07/29/06 Gi javon [id number] 12y+ bivalent booster vax 03/24/23 Given [id number] 12y+ bivalent booster vax 07/28/22 Recorded SARS-CoV-2 mRNA ([id number]) vax 02/17/22 Given SARS-CoV-2 (COVID-19) mRNA BNT-162b2 [...] Refills, Maintenance, 01/19/24 8:32:00 EDT, ER Tablet, [facility] #[id number], Partial fill upon patient request if th... Start Date: 01/19/24 Status: Ordered Albuterol (Eqv-ProAir HFA) 90 mcg/inh inhalation aerosol 2 puffs, Inhalation, Every 6 hours, PRN Wheezing/Shortness of Breath, # 8.5 Gm, 5 Refills, Maintenance, 01/19/24 8:30:00 EDT, [facility] #[id number], If pump is not covered, it can [...] 01/19/24 8:40:00 EDT, Route to Pharmacy Electronically, [id number], [facility] #[id number], 165, cm, 01/19/24 7:55:00 EDT, Height, 85.... Start Date: 01/19/24 Status: Ordered calcium (as citrate)-vitamin D 315 mg-250 intl units oral tablet 2 tablet, By Mouth, 2 times a day, # 360 tablet, 3 Refills, Maintenance, 03/18/24 10:33:00 EDT, [facility] #[id number], 2 tablet By Mouth 2 times a [...] Stop 03/18/24 10:33:00 EDT, 03/24/23 10:33:00 EDT, [facility] #[id number], 160, cm, 03/24/23 10:19:00 EDT, Height, 89.54, kg, 02/09/23 16:45:00 EDT, Dry Weight Start Date: 03/24/23 Stop Date: 03/18/24 Status: Ordered ciclopirox 8% topical solution 1 application, Topically, Daily, as directed to affected area toenails, # 6.6 mL, 11 Refills, Maintenance, 01/19/24 9:20:00 EDT, Solution, [facility] #[id number], ., 1 application Topically Daily,Instr:as directed; to affected area toenails, 165... Start Date: 01/19/24 Status: Ordered Clarinex 5 mg oral tablet 1 tablet = 5 mg, By Mouth, Daily, # 90 tablet, 3 Refills, Maintenance, 03/18/24 10:23:00 EDT, Tablet, [facility] #[id number], 165, cm, 01/19/24 7:55:00 EDT, Height, 85.45, kg, 12/23/23 9:04:00 EDT, Dry Weight Start Date: 03/18/24 Stop Date: 03/13/25 Status: Ordered Clarinex 5 mg oral tablet 1 tablet = 5 mg, By Mouth, Daily, for 90 days, # 90 tablet, 3 Refills, Hard Stop 03/18/24 10:23:00 EDT, 03/24/23 10:23:00 EDT, Tablet, [facility] #[id number], 160, cm, 03/24/23 10:19:00 EDT, Height, 89.54, [...] 11 Refills, Maintenance, 01/19/24 8:42:00 EDT, Gel, [facility] #[id number], ., 165, cm, 01/19/24 7:55:00 EDT, Height, 85.45, kg, 12/23/23 9:04:00 EDT,Dry Weight Start Date: 01/19/24 Stop Date: 07/05/24 Status: Ordered Eliquis 5 mg oral tablet 1 tablet, By Mouth, 2 times a day, # 180 tablet, 3 Refills, Maintenance, 01/19/24 9:20:00 EDT, [facility] #[id number], 165, cm, 01/19/24 7:55:00 EDT, Height, 85.45, kg, 12/23/23 9:04:00 EDT, DryWeight Start Date: 01/19/24 Status: Ordered EPINEPHrine 0.3 mg injectable solution = 0.3 mg, Intramuscular, Once, PRN Anaphylactic Reaction, # 1 each, 0 Refills, Soft Stop, 10/22/21 10:11:00 EST, [facility] #[id number], 165, cm, 10/22/21 9:05:00 EST, Height, 89.5, kg, 04/23/2121:43:00 EDT, Dry Weight Start Date: 10/22/21 Status: Ordered escitalopram 10 mg oral tablet 1 tablet = 10 mg, By Mouth, Daily, discontinue citalopram, # 30 tablet, 11 Refills, Maintenance, 01/19/24 8:34:00 EDT, Tablet, [facility] #[id number], Partial fill upon patient request if the prescription is for a schedule II opioid drug., 165, c... Start Date: 01/19/24 Status: Ordered fluticasone 50 mcg/inh nasal spray 2 sprays, Nares, Both, Daily, Use every day during allergy season. While using spray keep head down., # 3 each, 3 Refills, Maintenance, 03/18/24 10:28:00 EDT, [facility] #[id number], ., 2 spraysNares, Both Daily,x90 days,Instr:Use every day duri... Start Date: 03/18/24 Stop Date: 03/13/25 Status: Ordered formoterol 10 mcg/mL inhalation solution See Instructions, USE 2 ML VIA NEBULIZER TWICE DAILY USING A CONTINUOUS FLOW VIA NEBULIZER, # 120 mL, 11 Refills, Maintenance, 01/19/24 8:40:00 EDT, [facility] #[id number], 165, cm, 01/19/24 7:55:00 EDT, Height, 85.45, kg, 12/23/23 9:04:00 EDT, D... Start Date: 01/19/24 Status: Ordered hydrALAZINE 25 mg oral tablet See Instructions, By mouth 2 tab in 7 AM, 1 tab at1PM and 2 PM at 4PM 90-day supply, # 450 tablet, Refills 3, Tot. Refills 3, Maintenance, 01/19/24 9:19:00 EDT, Instructions Replace Required Details,Route to Pharmacy Electronically, [facility]. Start Date: 01/19/24 Status: Ordered Lancets See [...] tablet, 3 Refills, Maintenance, 03/18/24 10:31:00 EDT, [facility] #[id number], 165, cm, 01/19/24 7:55:00 EDT, Height, 85.45, kg, 12/23/23 9:04:00 EDT, Dry Weight Start Date: 03/18/24 Stop Date: 03/13/25 Status: Ordered levothyroxine 0.05 mg oral tablet 1 tablet, By Mouth, Daily, for 90 days, # 90 tablet, 3 Refills, Hard Stop 03/18/24 10:31:00 EDT, 03/24/23 10:31:00 EDT, [facility] #[id number], 160, cm, 03/24/23 10:19:00 EDT, Height, 89.54, kg,02/09/23 16:45:00 EDT, Dry Weight Start Date: 03/24/23 Stop Date: 03/18/24 Status: Ordered lisinopril 40 mg oral tablet 1 tablet = 40 mg, By Mouth, Daily in AM, 11 AM Decreased dose, # 90 tablet, 3 Refills, Maintenance,03/18/24 10:12:00 EDT, Tablet, [facility] #[id number], 165, cm, 01/19/24 7:55:00 EDT, Height, 85.45, kg, 12/23/23 9:04:00 EDT, Dry Weight Start Date: 03/18/24 Stop Date: 03/13/25 Status: Ordered lisinopril 40 mg oral tablet 1 tablet = 40 mg, By Mouth, Daily in AM, for 90 days, 11 AM Decreased dose, # 90 tablet, 3 Refills,Hard Stop 03/18/24 10:12:00 EDT, 03/24/23 10:12:00 EDT, Tablet, [facility] #[id number], 160, cm, 03/24/23 9:26:00 EDT, Height, 89.54, kg, ... Start Date: 03/24/23 Stop Date: 03/18/24 Status: Ordered Matzim LA 180 mg/24 hours oral tablet, extended release 1 tablet = 180 mg, By Mouth, Daily in AM, Take at 11 AM, # 90 tablet, 3 Refills, Maintenance, 03/18/24 9:58:00 EDT, ER Tablet, [facility] #[id number], 165, cm, 01/19/24 7:55:00 EDT, Height, 85.45, [...] 9:58:00 EDT, 03/24/23 9:58:00 EDT, ER Tablet, [facility] #[id number], 160, cm, 03/24/23 9:26:00 EDT, H... Start Date: 03/24/23 Stop Date: 03/18/24 Status: Ordered MetFORMIN (Eqv-Glucophage XR) 500 mg oral tablet, extended release 1 tablet, By Mouth, 2 times a day with meals, INCREASE DOSE, # 180 tablet, 3 Refills, Maintenance, 12/22/23 16:13:00 EDT, [facility] #[id number], 165, cm, 12/20/23 5:43:00 EDT, Height, 84.5, kg,12/19/23 17:15:00 EDT, Dry Weight Start Date: 12/22/23 Status: Ordered metoprolol 25 mg oral tablet, extended release 25 mg, 1, tablet, By Mouth, Daily, # 30 tablet, Refills 11, Tot. Refills 11, Maintenance, 01/19/24 8:40:00 EDT, Route to Pharmacy Electronically, [facility] #[id number], 165, cm, 01/19/24 7:55:00 EDT, Height, 85.45, kg, 12/23/23 9:04:00 EDT, Dry... Start Date: 01/19/24 Status: Ordered mirtazapine 15 mg oral tablet 0.5 tablet, By Mouth, Daily at bedtime, # 45 tablet, 3 Refills, Maintenance, 03/18/24 10:22:00 EDT,[facility] #[id number], 165, cm, 01/19/24 7:55:00 EDT, Height, 85.45, kg, 12/23/23 9:04:00 EDT, Dry Weight Start Date: 03/18/24 Stop Date: 03/13/25 Status: Ordered mirtazapine 15 mg oral tablet 0.5 tablet, By Mouth, Daily at bedtime, for 90 days, # 45 tablet, 3 Refills, Hard Stop 03/18/24 10:22:00 EDT, 03/24/23 10:22:00 EDT, [facility] #[id number], 160, cm, 03/24/23 10:19:00 EDT, Height, 89.54, kg, 02/09/23 16:45:00 EDT, Dry Weight Start Date: 03/24/23 Stop Date: 03/18/24 Status: Ordered montelukast 10 mg oral tablet 1, tablet, By Mouth, Daily at bedtime, SUPPLY., # 90 tablet, Refills 3, Tot. Refills 3, Maintenance, 06/05/23 14:50:00 EDT, Route to Pharmacy Electronically, [facility] #[id number], 160, cm, 03/24/23 10:19:00 EDT, Height, 89.54, kg, 02/09/23 16:4... Start Date: 06/05/23 Status: Ordered Nucala Prefilled Autoinjector 100 mg/mL subcutaneous solution = 100 mg, Subcutaneous Infusion, Every 28 days, [id number], # 1 each, 11 Refills, Maintenance, 01/12/2414:58:00 EDT, [facility], Partial fill upon patient request if the prescription isfor a schedule II opioid drug., 165, cm, 01/04/24 1... Start Date: 01/13/24 Status: Ordered [id number] medical-grade oxford diabetic shoes, depth or hightop [id number] medical-grade oxford diabetic shoes, depth or hightop, [...] capsule, 3 Refills, Maintenance, 03/18/24 10:28:00 EDT, [facility] #[id number], 165, cm, 01/19/24 7:55:00 EDT, Height, 85.45, kg, 12/23/23 9:04:00 EDT, Dry Weight Start Date: 03/18/24 Stop Date: 03/13/25 Status: Ordered omeprazole 20 mg oral enteric coated capsule 1 capsule = 20 mg, By Mouth, Daily, for 90 days, 30 minutes before breakfast MD is aware of interaction with citalopram, # 90 capsule, 3 Refills, Hard Stop 03/18/24 10:28:00 EDT, 03/24/23 10:28:00 EDT, [facility] #[id number], 160, cm, 03/24/23 1... Start Date: 03/24/23 Stop Date: 03/18/24 Status: Ordered pravastatin 80 mg oral tablet 1 tablet, By Mouth, Daily, # 90 tablet, 3 Refills, Maintenance, 03/24/23 10:32:00 EDT, [facility] #[id number], 160, cm, 03/24/23 10:19:00 EDT, Height, 89.54, kg, 02/09/23 16:45:00 EDT, Dry Weight Start Date: 03/24/23 Stop Date: 03/18/24 Status: Ordered Premarin Vaginal 0.625 mg/gm cream with applicator See Instructions, APPLY 1/2 GRAM IN THE VAGINA EVERY WEDNESDAY AND WEDNESDAY, # 30 Gm, 11 Refills, Maintenance, 01/19/24 9:20:00 EDT, [facility] #[id number], 30, APPLY 1/2 GRAM IN THE VAGINA [...] in AM, at 11 AM Given by retail product demo specialist, Dr. Indio Mason, # 30 tablet, Refills [...] 5, 6, 7, 8 Confirmed 08/09/06 Active *[id number] Hospice Nurse Practitioner Michelle Cain Confirmed Active Varicose vein Confirmed [...] Team Personnel Name: Haley Gonzalez RN Position: [facility] RN Member Role: Primary Care Nurse Name: Marychuy MCCLAIN, Jessica Position: [facility] Physician - Primary Care Member Role: PCP Address: Address: [address] [place] [address]- Care Team Related Persons Name: SANDY BOYCE Address: home [address] [place] [address] Name: BOYCECOLT Address: [address] [place] [address]
--- OUTSIDE RECORDS SUMMARY | 2024-07-06 12:05 | XMS_ITS | Continuity of Care Document ---
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 Start Date: 01/19/24 Status: Ordered Albuterol (Eqv-ProAir HFA) 90 mcg/inh inhalation aerosol 2 puffs, Inhalation, Every 6 hours, PRN Wheezing/Shortness of Breath, # 8.5 Gm, 5 Refills, Maintenance, 01/19/24 8:30:00 EDT, [facility] #[id number], If pump is not covered, it can [...] 01/19/24 8:40:00 EDT, Route to Pharmacy Electronically, [id number], [facility] #[id number], 165, cm, 01/19/24 7:55:00 EDT, Height, 85.... Start Date: 01/19/24 Status: Ordered calcium (as citrate)-vitamin D 315 mg-250 intl units oral tablet 2 tablet, By Mouth, 2 times a day, # 360 tablet, 3 Refills, Maintenance, 03/18/24 10:33:00 EDT, [facility] #[id number], 2 tablet By Mouth 2 times a [...] Stop 03/18/24 10:33:00 EDT, 03/24/23 10:33:00 EDT, [facility] #[id number], 160, cm, 03/24/23 10:19:00 EDT, Height, 89.54, kg, 02/09/23 16:45:00 EDT, Dry Weight Start Date: 03/24/23 Stop Date: 03/18/24 Status: Ordered ciclopirox 8% topical solution 1 application, Topically, Daily, as directed to affected area toenails, # 6.6 mL, 11 Refills, Maintenance, 01/19/24 9:20:00 EDT, Solution, [facility] #[id number], ., 1 application Topically Daily,Instr:as directed; to affected area toenails, 165... Start Date: 01/19/24 Status: Ordered Clarinex 5 mg oral tablet 1 tablet = 5 mg, By Mouth, Daily, # 90 tablet, 3 Refills, Maintenance, 03/18/24 10:23:00 EDT, Tablet, [facility] #[id number], 165, cm, 01/19/24 7:55:00 EDT, Height, 85.45, kg, 12/23/23 9:04:00 EDT, Dry Weight Start Date: 03/18/24 Stop Date: 03/13/25 Status: Ordered Clarinex 5 mg oral tablet 1 tablet = 5 mg, By Mouth, Daily, for 90 days, # 90 tablet, 3 Refills, Hard Stop 03/18/24 10:23:00 EDT, 03/24/23 10:23:00 EDT, Tablet, [facility] #[id number], 160, cm, 03/24/23 10:19:00 EDT, Height, 89.54, [...] 11 Refills, Maintenance, 01/19/24 8:42:00 EDT, Gel, [facility] #[id number], ., 165, cm, 01/19/24 7:55:00 EDT, Height, 85.45, kg, 12/23/23 9:04:00 EDT,Dry Weight Start Date: 01/19/24 Stop Date: 07/05/24 Status: Ordered Eliquis 5 mg oral tablet 1 tablet, By Mouth, 2 times a day, # 180 tablet, 3 Refills, Maintenance, 01/19/24 9:20:00 EDT, [facility] #[id number], 165, cm, 01/19/24 7:55:00 EDT, Height, 85.45, kg, 12/23/23 9:04:00 EDT, DryWeight Start Date: 01/19/24 Status: Ordered EPINEPHrine 0.3 mg injectable solution = 0.3 mg, Intramuscular, Once, PRN Anaphylactic Reaction, # 1 each, 0 Refills, Soft Stop, 10/22/21 10:11:00 EST, [facility] #[id number], 165, cm, 10/22/21 9:05:00 EST, Height, 89.5, kg, 04/23/2121:43:00 EDT, Dry Weight Start Date: 10/22/21 Status: Ordered escitalopram 10 mg oral tablet 1 tablet = 10 mg, By Mouth, Daily, discontinue citalopram, # 30 tablet, 11 Refills, Maintenance, 01/19/24 8:34:00 EDT, Tablet, [facility] #[id number], Partial fill upon patient request if the prescription is for a schedule II opioid drug., 165, c... Start Date: 01/19/24 Status: Ordered fluticasone 50 mcg/inh nasal spray 2 sprays, Nares, Both, Daily, Use every day during allergy season. While using spray keep head down., # 3 each, 3 Refills, Maintenance, 03/18/24 10:28:00 EDT, [facility] #[id number], ., 2 spraysNares, Both Daily,x90 days,Instr:Use every day duri... Start Date: 03/18/24 Stop Date: 03/13/25 Status: Ordered formoterol 10 mcg/mL inhalation solution See Instructions, USE 2 ML VIA NEBULIZER TWICE DAILY USING A CONTINUOUS FLOW VIA NEBULIZER, # 120 mL, 11 Refills, Maintenance, 01/19/24 8:40:00 EDT, [facility] #[id number], 165, cm, 01/19/24 7:55:00 EDT, Height, 85.45, [...] tablet, 3 Refills, Maintenance, 03/18/24 10:31:00 EDT, [facility] #[id number], 165, cm, 01/19/24 7:55:00 EDT, Height, 85.45, kg, 12/23/23 9:04:00 EDT, Dry Weight Start Date: 03/18/24 Stop Date: 03/13/25 Status: Ordered levothyroxine 0.05 mg oral tablet 1 tablet, By Mouth, Daily, for 90 days, # 90 tablet, 3 Refills, Hard Stop 03/18/24 10:31:00 EDT, 03/24/23 10:31:00 EDT, [facility] #[id number], 160, cm, 03/24/23 10:19:00 EDT, Height, 89.54, kg,02/09/23 16:45:00 EDT, Dry Weight Start Date: 03/24/23 Stop Date: 03/18/24 Status: Ordered lisinopril 40 mg oral tablet 1 tablet = 40 mg, By Mouth, Daily in AM, 11 AM Decreased dose, # 90 tablet, 3 Refills, Maintenance,03/18/24 10:12:00 EDT, Tablet, [facility] #[id number], 165, cm, 01/19/24 7:55:00 EDT, Height, 85.45, kg, 12/23/23 9:04:00 EDT, Dry Weight Start Date: 03/18/24 Stop Date: 03/13/25 Status: Ordered lisinopril 40 mg oral tablet 1 tablet = 40 mg, By Mouth, Daily in AM, for 90 days, 11 AM Decreased dose, # 90 tablet, 3 Refills,Hard Stop 03/18/24 10:12:00 EDT, 03/24/23 10:12:00 EDT, Tablet, [facility] #[id number], 160, cm, 03/24/23 9:26:00 EDT, Height, 89.54, kg, ... Start Date: 03/24/23 Stop Date: 03/18/24 Status: Ordered Matzim LA 180 mg/24 hours oral tablet, extended release 1 tablet = 180 mg, By Mouth, Daily in AM, Take at 11 AM, # 90 tablet, 3 Refills, Maintenance, 03/18/24 9:58:00 EDT, ER Tablet, [facility] #[id number], 165, cm, 01/19/24 7:55:00 EDT, Height, 85.45, [...] 9:58:00 EDT, 03/24/23 9:58:00 EDT, ER Tablet, [facility] #[id number], 160, cm, 03/24/23 9:26:00 EDT, H... Start Date: 03/24/23 Stop Date: 03/18/24 Status: Ordered MetFORMIN (Eqv-Glucophage XR) 500 mg oral tablet, extended release 1 tablet, By Mouth, 2 times a day with meals, INCREASE DOSE, # 180 tablet, 3 Refills, Maintenance, 12/22/23 16:13:00 EDT, [facility] #[id number], 165, cm, 12/20/23 5:43:00 EDT, Height, 84.5, kg,12/19/23 17:15:00 EDT, Dry Weight Start Date: 12/22/23 Status: Ordered metoprolol 25 mg oral tablet, extended release 25 mg, 1, tablet, By Mouth, Daily, # 30 tablet, Refills 11, Tot. Refills 11, Maintenance, 01/19/24 8:40:00 EDT, Route to Pharmacy Electronically, [facility] #[id number], 165, cm, 01/19/24 7:55:00 EDT, Height, 85.45, kg, 12/23/23 9:04:00 EDT, Dry... Start Date: 01/19/24 Status: Ordered mirtazapine 15 mg oral tablet 0.5 tablet, By Mouth, Daily at bedtime, # 45 tablet, 3 Refills, Maintenance, 03/18/24 10:22:00 EDT,[facility] #[id number], 165, cm, 01/19/24 7:55:00 EDT, Height, 85.45, kg, 12/23/23 9:04:00 EDT, Dry Weight Start Date: 03/18/24 Stop Date: 03/13/25 Status: Ordered mirtazapine 15 mg oral tablet 0.5 tablet, By Mouth, Daily at bedtime, for 90 days, # 45 tablet, 3 Refills, Hard Stop 03/18/24 10:22:00 EDT, 03/24/23 10:22:00 EDT, [facility] #[id number], 160, cm, 03/24/23 10:19:00 EDT, Height, 89.54, kg, 02/09/23 16:45:00 EDT, Dry Weight Start Date: 03/24/23 Stop Date: 03/18/24 Status: Ordered montelukast 10 mg oral tablet 1, tablet, By Mouth, Daily at bedtime, SUPPLY., # 90 tablet, Refills 3, Tot. Refills 3, Maintenance, 06/05/23 14:50:00 EDT, Route to Pharmacy Electronically, [facility] #[id number], 160, cm, 03/24/23 10:19:00 EDT, Height, 89.54, kg, 02/09/23 16:4... Start Date: 06/05/23 Status: Ordered Nucala Prefilled Autoinjector 100 mg/mL subcutaneous solution = 100 mg, Subcutaneous Infusion, Every 28 days, [id number], # 1 each, 11 Refills, Maintenance, 01/12/2414:58:00 EDT, [facility], Partial fill upon patient request if the prescription isfor a schedule II opioid drug., 165, cm, 01/04/24 1... Start Date: 01/13/24 Status: Ordered Ilj-tev-himcy medical-grade oxford diabetic shoes, depth or hightop Gbf-kra-svvke medical-grade oxford diabetic shoes, depth or hightop, [...] capsule, 3 Refills, Maintenance, 03/18/24 10:28:00 EDT, [facility] #[id number], 165, cm, 01/19/24 7:55:00 EDT, Height, 85.45, kg, 12/23/23 9:04:00 EDT, Dry Weight Start Date: 03/18/24 Stop Date: 03/13/25 Status: Ordered omeprazole 20 mg oral enteric coated capsule 1 capsule = 20 mg, By Mouth, Daily, for 90 days, 30 minutes before breakfast MD is aware of interaction with citalopram, # 90 capsule, 3 Refills, Hard Stop 03/18/24 10:28:00 EDT, 03/24/23 10:28:00 EDT, [facility] #[id number], 160, cm, 03/24/23 1... Start Date: 03/24/23 Stop Date: 03/18/24 Status: Ordered pravastatin 80 mg oral tablet 1 tablet, By Mouth, Daily, # 90 tablet, 3 Refills, Maintenance, 03/24/23 10:32:00 EDT, [facility] #[id number], 160, cm, 03/24/23 10:19:00 EDT, Height, 89.54, kg, 02/09/23 16:45:00 EDT, Dry Weight Start Date: 03/24/23 Stop Date: 03/18/24 Status: Ordered Premarin Vaginal 0.625 mg/gm cream with applicator See Instructions, APPLY 1/2 GRAM IN THE VAGINA EVERY WEDNESDAY AND WEDNESDAY, # 30 Gm, 11 Refills, Maintenance, 01/19/24 9:20:00 EDT, [facility] #[id number], 30, APPLY 1/2 GRAM IN THE VAGINA [...] in AM, at 11 AM Given by plug sorter, Dr. Indio Mason, # 30 tablet, Refills [...] 5 Refills, Maintenance, 01/26/24 9:28:00 EDT, Powder, [facility] #[id number], Partial fill upon patientrequest if the prescription [...] 5, 6, 7, 8 Confirmed 08/09/06 Active *[id number] Wire Puller Michelle Cain Confirmed Active Varicose vein Confirmed [...] femoral neck 0, normal proximal femur 0.8 Diagnosis Diagnosis Type Effective Dates Health Status Cl inical Service Informant History of DVT in adulthood Discharge Diagnosis 02/15/24 Vital Signs Most recent to oldest [Reference Range]: 1 Height 165 cm (02/15/24 8:17 AM) Weight 86.18 kg (02/15/24 8:17 AM) Oxygen Saturation [94-100 %] 93 % *L* (02/15/24 8:17 AM) Pulse Rate [55-90 bpm] 83 bpm (02/15/24 8:17 AM) Body Mass Index [18.5-24.99 kg/m2] 31.65 kg/m2 *>HHI* (02/15/24 8:17 AM) Blood Pressure [90-138/55-84 mm Hg] 176/ 72mm Hg *H* (02/15/24 8:17 AM) Blood pressure sites Arm, left (02/15/24 8:17 AM) Weight Obtained Via Pediatric scale (02/15/24 8:17 AM) Social History Social History Type Response Smoking Status Never (less than 100 in lifetime) entered on: 03/24/23 Sex Note * Bakari Alexandra: PERFORM Event Display: Patient Education/Instruction Authored Date: [id number] Ambulatory [place] [address] Name: KRUNAL SCHWARTZ: 1945?? Visit: 02/15/2024 07:39?? Ambulatory Visit Instructions ?? Your Care Team Primary Care Provider Marychuy MCCLAIN, Jessica? This Visit Provider Jen Brush NP Your Diagnosis History of DVT in adulthood Vitals Signs Pulse Rate: 83 bpm Height: 165 cm Systolic Blood Pressure:??176 mm Hg??High Weight: 86.18 kg Diastolic Blood Pressure: 72 mm Hg Body Mass Index:??31.65 kg/m2??Critical Oxygen Saturation:??93 %??Low Body surface area: 1.99 What to do next Scheduled Follow-Up Appointments Wednesday 9:15 AM EDT ?? Where: [address] [address]- Status: Pending Wednesday 9:20 AM EDT ?? With: Marco Berger MD Where: [facility] [address] [place] [id number]- Status: Pending Medications The list below reflects the information in our records and provided by you today along with any changes made during this visit. Please continue your medications until treatment is completed or stopped by your provider. If this is different from the information you have or there are other questions,please contact the prescribing provider. What How Much When Why Instructions New Durable Medical Equipment (Juxtafit Knee-high Compression Garments(bilateral, left, right) with 2 pairs of liners) See instructions History of DVT in adulthood as directed ?? Printed Prescription Unchanged Acetaminophen (acetaminophen 650 mg oral tablet, extended release) 2 tab(s) Oral Every 8 hours as needed for Pain (do not crush or chew) (not to exceed 6 tablets/ day) ?? Unchanged Albuterol (Albuterol (Eqv-ProAir HFA) 90 mcg/ inh inhalation aerosol) 2 puff(s) Inhalation Every 6 hours as needed for Wheezing/Shortness of Breath Unchanged apixaban (Eliquis 5 mg oral tablet) 1 tab(s) Oral Twice a day Unchanged Budesonide (budesonide 0.5 mg/ 2 mL inhalation suspension) 2 Milliliter Inhalation Twice a day Unchanged Calcium And Vitamin D Combination (calcium (as citrate)-vitamin D 315 mg-250 intl units oral tablet) 2 tab(s) Oral Twice a day Duration: 90 Days Unchanged Calcium And Vitamin D Combination (calcium (as citrate)-vitamin D 315 mg-250 intl units oral tablet) 2 tab(s) Oral Twice a day Duration: 90 Days Unchanged Ciclopirox Topical (ciclopirox 8% topical solution) 1 kristy Topically Daily as directed to affected area toenails ?? Unchanged Conjugated Estrogens Topical (Premarin Vaginal 0.625 mg/ gm cream with applicator) See instructions APPLY 1/ 2 GRAM IN THE VAGINA EVERY WEDNESDAY AND WEDNESDAY ?? Unchanged Desloratadine (Clarinex 5 mg oral tablet) 1 tab(s) Oral Daily Duration: 90 Days Unchanged Desloratadine (Clarinex 5 mg oral tablet) 1 tab(s) Oral Daily Duration: 90 Days Unchanged Diclofenac Topical (diclofenac 1% topical gel) 2 gram Topically 4 times a day Duration: 14 Days Unchanged Diltiazem (Matzim LA 180 mg/ 24 hours oral tablet, extended release) 1 tab(s) Oral Daily in the morning Duration: 90 Days Discontinue diltiazem 360 mg Takes at 11 AM ?? Unchanged Diltiazem (Matzim LA 180 mg/ 24 hours oral tablet, extended release) 1 tab(s) Oral Daily in the morning Duration: 90 Days Take at 11 AM ?? Unchanged Durable Medical Equipment (Alcohol Wipes) See instructions Diabetes mellitus type 2 use daily ??for blood sugar testing once ??a day Dx ??DM type 2 E11.9 ?? Unchanged Durable Medical Equipment (Compression- Lower Extremity (Knee High)) See instructions use daily; closed toes; 15-20 mmHg. Dx peripheral vascular insufficiency I 87.2 ?? Unchanged Durable Medical Equipment (Lancets) See instructions DM type 2 use daily for blood sugar testing once ??a day Dx ??DM type 2 E11.9 One Touch Delica ?? Unchanged Durable Medical Equipment (Qrr-cwe-vlalr medical-grade oxford diabetic shoes, depth or hightop) [...] Intramuscular Once as needed for Anaphylactic Reaction Unchanged Escitalopram (escitalopram 10 mg oral tablet) 1 tab(s) Oral Daily discontinue citalopram ?? Unchanged Fluticasone Nasal (fluticasone 50 mcg/ inh nasal spray) 2 spray(s) Nares, Both Daily Duration: 90 Days Use every day during allergy season. While using spray keep head down. ?? Unchanged Fluticasone-Salmeterol (Wixela Inhub 100 mcg-50 mcg [...] tab(s) Oral Daily Duration: 90 Days Unchanged Levothyroxine (levothyroxine 0.05 mg oral tablet) 1 tab(s) Oral Daily Duration: 90 Days Unchanged Lisinopril (lisinopril 40 mg oral tablet) 1 tab(s) Oral Daily in the morning Duration: 90 Days 11 AM Decreased dose ?? Unchanged Lisinopril (lisinopril 40 mg oral tablet) [...] Daily at Bedtime Duration: 90 Days Unchanged Mirtazapine (mirtazapine 15 mg oral tablet) 0.5 tab(s) Oral Daily at Bedtime Duration: 90 Days Unchanged Montelukast (montelukast 10 mg oral tablet) 1 tab(s) Oral Daily at Bedtime SUPPLY. ?? Unchanged Omeprazole (omeprazole 20 mg oral enteric coated capsule) 1 capsule Oral Daily Duration: 90 Days 30 minutes before breakfast MD is aware of interaction with citalopram ?? Unchanged Omeprazole (omeprazole 20 mg oral enteric coated capsule) 1 capsule Oral Daily Duration: 90 Days 30 minutes before breakfast ?? Unchanged Pravastatin (pravastatin 80 mg oral tablet) 1 tab(s) Oral Daily Duration: 90 Days Unchanged Spironolactone (spironolactone 25 mg oral tablet) 1 tab(s) Oral Daily in the morning at ??11 AM Given by plug sorter, Dr. Indio Mason ?? Medications and Immunizations Administered Medications Given During Visit No medications given during this visit.?? Allergies (NKA means No Known Allergies) dexamethasone??(Swelling of throat 10-DEC-2015 19:14:30<$>) predniSONE??(Itchy skin eruption) tramadol??(Itch) Common Emergency Awareness Tips IS IT A [...] are strongly encouraged to quit. Please call [employer] at [phone] or [phone] ([phone]) or log in to [email or web address] for referrals to smoking cessation programs. ?? The National Suicide Prevention Hotline is available 05/04 if you or someone you know needs to find a reason to keep living. By calling 1-980-890-NatSent (7102) you'll be connected to a skilled, trained counselor at a crisis center in your area. [facility] Portal You can view and manage your care through the patient portal or by using a health care kristy of your choosing. [email or web address] is a website that allows you to securely view your medical information including your hospital discharge summary, office visit summaries, medications and follow-up visits. You can also request appointments, renew medications, and request access to your medical information using a health care kristy of your choosing, or just ask a question. You can enroll at [email or web address] or register during your next office visit. [facility], in keeping with [facility] guidance, no longer requires face [...] medical provider or home test kit. ?? Disclaimer: The information provided is of a general nature and is intended to be used in conjunction with the recommendations and advice of your health care practitioner. Every effort has been made to ensure that the information provided is accurate and complete at the time it is provided to you however, as your needs change, or, as new information becomes available, different or additional instructions may be required. ?? If you have questions, please consult with your primary care provider or pharmacist, as appropriate. This information is not intended to serve as substitution for assessment and evaluation by a qualified health care provider. If you do not have a primary care provider, you may find a [facility] provider by calling [employer] at [phone]. Patient Care team information Care Team Personnel Name: Haley Gonzalez RN Position: [facility] RN Member Role: Primary Care Nurse Name: Jessica Perrin MD Position: [facility] Physician - Primary Care Member Role: PCP Address: Address: [address] [place] [address]- Care Team Related Persons Name: SANDY BOYCE Address: home [address] [place] [address] Name: COLT BOYCE Address: [address] [place] [address]
--- OUTSIDE RECORDS SUMMARY | 2024-07-06 12:05 | XMS_ITS | Continuity of Care Document ---
Author Organization [facility] Address [address] [place] [id number]- Care Team Providers Care Dog Pound Attendant Name Role Phone Marychuy MCCLAIN, Jessica Primary Care Physician Encounter [facility] Date(s): 12/13/23 - 01/12/24 [facility]/[address] [address]- Allergies, Adverse Reactions, Alerts Substance Reaction Severity [...] influenza virus vaccine, inactivated 1 07/24/15 Gi jaovn influenza virus vaccine, inactivated 12/25/14 Give n influenza virus vaccine, inactivated 06/22/13 Give n influenza virus vaccine, inactivated 06/15/12 Give n influenza virus vaccine, inactivated 2 10/08/11 Gi javon influenza virus vaccine, inactivated 3 10/16/09 Gi javon influenza virus vaccine, inactivated 4 07/26/08 Gi javon influenza virus vaccine, inactivated 07/14/07 Give n influenza virus vaccine, inactivated 5 07/29/06 Gi javon [id number] 12y+ bivalent booster vax 03/24/23 Given [id number] 12y+ bivalent booster vax 07/28/22 Recorded SARS-CoV-2 mRNA (vhuavkv-yccd-uoano) vax 02/17/22 Given SARS-CoV-2 (COVID-19) mRNA BNT-162b2 [...] tablet, 11 Refills, Maintenance, 03/24/23 10:28:00 EDT, [facility] #[id number], 160, cm, 03/24/23 10:19:00 EDT, Height, 89.54, kg, 0... Start Date: 03/24/23 Status: Ordered Advair Diskus 100 mcg-50 mcg inhalation powder 1, inhalation, Inhalation, 2 times a day, rinse mouth and throat after use, # 1 each, Refills 0, Tot. Refills 0, Maintenance, 12/23/23 11:03:00 EDT, Powder, Route to Pharmacy Electronically, [id number], [facility] #... Start Date: 12/23/23 Status: Ordered albuterol 0.083% inhalation solution 3 mL = 2.5 mg, Inhalation, Every 6 hours, # 25 each, 5 Refills, Maintenance, 08/12/22 15:02:00 EST,[facility] #[id number], 165, cm, 06/18/22 13:19:00 EDT, Height, 88.9, [...] Maintenance, 11/25/23 10:58:00 EDT, Route toPharmacy Electronically, [id number], [facility] #[id number], 160, cm, 03/24/23 10:19:00 EDT, Height, 89.54, kg, 02/09/23... Start Date: 11/25/23 Status: Ordered calcium (as citrate)-vitamin D 315 mg-250 intl units oral tablet 2 tablet, By Mouth, 2 times a day, # 360 tablet, 3 Refills, Maintenance, 03/24/23 10:33:00 EDT, [facility] #[id number], 2 tablet By Mouth 2 times a day,x90 days, 160, cm, 03/24/23 10:19:00 EDT, Height, 89.54, kg, 02/09/23 16:45:00 EDT, Dry Weight Start Date: 03/24/23 Stop Date: 03/18/24 Status: Ordered ciclopirox 8% topical solution 1 application, Topically, Daily, as directed to affected area toenails, # 6.6 mL, 11 Refills, Maintenance, 03/24/23 10:42:00 EDT, Solution, [facility] #[id number], ., 1 application Topically Daily,Instr:as directed; to affected area toenails, 16... Start Date: 03/24/23 Status: Ordered citalopram 20 mg oral tablet 20 mg, 1, tablet, By Mouth, Daily, # 90 tablet, Refills 3, Tot. Refills 3, Maintenance, 03/24/23 10:23:00 EDT, Route to Pharmacy Electronically, [facility] #[id number], is awared of interaction w nicky, 160, cm, 03/24/23 10:19:00 EDT, He... Start Date: 03/24/23 Status: Ordered Clarinex 5 mg oral tablet 1 tablet = 5 mg, By Mouth, Daily, # 90 tablet, 3 Refills, Maintenance, 03/24/23 10:23:00 EDT, Tablet, [facility] #[id number], 160, cm, 03/24/23 10:19:00 EDT, Height, 89.54, [...] tablet, 3 Refills, Maintenance, 03/24/23 10:04:00 EDT, [facility] #[id number], 160, cm, 03/24/23 9:26:00 EDT, Height, 89.54, kg, 02/09/23 16:45:00 EDT, Dry Weight Start Date: 03/24/23 Status: Ordered EPINEPHrine 0.3 mg injectable solution = 0.3 mg, Intramuscular, Once, PRN Anaphylactic Reaction, # 1 each, 0 Refills, Soft Stop, 10/22/21 10:11:00 EST, [facility] #[id number], 165, cm, 10/22/21 9:05:00 EST, Height, 89.5, kg, 04/23/2121:43:00 EDT, Dry Weight Start Date: 10/22/21 Status: Ordered fluticasone 50 mcg/inh nasal spray 2 sprays, Nares, Both, Daily, for 90 days, Use every day during allergy season. While using spray keep head down., # 3 each, 3 Refills, Hard Stop 03/18/24 10:28:00 EDT, 03/24/23 10:28:00 EDT, [facility] #[id number], ., 160, cm, 03/24/23 10:19:00... Start Date: 03/24/23 Stop Date: 03/18/24 Status: Ordered fluticasone 50 mcg/inh nasal spray 2 sprays, Nares, Both, Daily, Use every day during allergy season. While using spray keep head down., # 3 each, 3 Refills, Maintenance, 03/18/24 10:28:00 EDT, [facility] #[id number], ., 2 spraysNares, Both Daily,x90 days,Instr:Use every day duri... Start Date: 03/18/24 Stop Date: 03/13/25 Status: Ordered formoterol 10 mcg/mL inhalation solution See Instructions, USE 2 ML VIA NEBULIZER TWICE DAILY USING A CONTINUOUS FLOW VIA NEBULIZER, # 120 mL, 0 Refills, Maintenance, 11/16/23 9:56:00 EST, [facility] #[id number], 160, cm, 03/24/23 10:19:00 EDT, Height, 89.54, [...] tablet, 3 Refills, Maintenance, 03/24/23 10:31:00 EDT, [facility] #[id number], 160, cm, 03/24/23 10:19:00 EDT, Height, 89.54, kg, 02/09/23 16:45:00 EDT, Dry Weight Start Date: 03/24/23 Stop Date: 03/18/24 Status: Ordered lisinopril 40 mg oral tablet 1 tablet = 40 mg, By Mouth, Daily in AM, 11 AM Decreased dose, # 90 tablet, 3 Refills, Maintenance,03/24/23 10:12:00 EDT, Tablet, [facility] #[id number], 160, cm, 03/24/23 9:26:00 EDT, Height, 89.54, kg, 02/09/23 16:45:00 EDT, Dry Weight Start Date: 03/24/23 Stop Date: 03/18/24 Status: Ordered Matzim LA 180 mg/24 hours oral tablet, extended release 1 tablet = 180 mg, By Mouth, Daily in AM, Discontinue diltiazem 360 mg Takes at 11 AM, # 90 tablet,3 Refills, Maintenance, 03/24/23 9:58:00 EDT, ER Tablet, [facility] #[id number], 160, cm, 03/24/23 9:26:00 EDT, Height, 89.54, kg, 02/09/23 16:45... Start Date: 03/24/23 Stop Date: 03/18/24 Status: Ordered MetFORMIN (Eqv-Glucophage XR) 500 mg oral tablet, extended release 1 tablet, By Mouth, 2 times a day with meals, INCREASE DOSE, # 180 tablet, 3 Refills, Maintenance, 12/22/23 16:13:00 EDT, [facility] #[id number], 165, cm, 12/20/23 5:43:00 EDT, Height, 84.5, kg,12/19/23 17:15:00 EDT, Dry Weight Start Date: 12/22/23 Status: Ordered mirtazapine 15 mg oral tablet 0.5 tablet, By Mouth, Daily at bedtime, # 45 tablet, 3 Refills, Maintenance, 03/24/23 10:22:00 EDT,[facility] #[id number], 160, cm, 03/24/23 10:19:00 EDT, Height, 89.54, kg, 02/09/23 16:45:00 EDT, Dry Weight Start Date: 03/24/23 Stop Date: 03/18/24 Status: Ordered montelukast 10 mg oral tablet 1, tablet, By Mouth, Daily at bedtime, SUPPLY., # 90 tablet, Refills 3, Tot. Refills 3, Maintenance, 06/05/23 14:50:00 EDT, Route to Pharmacy Electronically, [facility] #[id number], 160, cm, 03/24/23 10:19:00 EDT, Height, 89.54, kg, 02/09/23 16:4... Start Date: 06/05/23 Status: Ordered Nucala 100 mg subcutaneous injection = 100 mg, Subcutaneous Infusion, Every 28 days, [id number] Nucala Pens, # 1 each, 11 Refills, Maintenance, 01/07/24 15:41:00 EDT, [facility], Partial fill upon patient request if the prescription is for a schedule II opioid drug., 165, cm... Start Date: 01/07/24 Status: Ordered Obz-sha-jqyjm medical-grade oxford diabetic shoes, depth or hightop Xyu-evc-zgqje medical-grade oxford diabetic shoes, depth or hightop, [...] capsule, 3 Refills, Maintenance, 03/24/23 10:28:00 EDT, [facility] #[id number], 160, cm, 03/24/23 10:19:00 EDT, Height, 89.54, kg, 0... Start Date: 03/24/23 Stop Date: 03/18/24 Status: Ordered pravastatin 80 mg oral tablet 1 tablet, By Mouth, Daily, # 90 tablet, 3 Refills, Maintenance, 03/24/23 10:32:00 EDT, [facility] #[id number], 160, cm, 03/24/23 10:19:00 EDT, Height, 89.54, kg, 02/09/23 16:45:00 EDT, Dry Weight Start Date: 03/24/23 Stop Date: 03/18/24 Status: Ordered Premarin Vaginal 0.625 mg/gm cream with applicator See Instructions, APPLY 1/2 GRAM IN THE VAGINA EVERY WEDNESDAY AND WEDNESDAY, # 30 Gm, 11 Refills, Maintenance, 03/24/23 10:23:00 EDT, [facility] #[id number], 30, APPLY 1/2 GRAM IN THE VAGINA EVERY WEDNESDAY AND WEDNESDAY, 160, cm, 03/24/23 10:19:00 EDT,... Start Date: 03/24/23 Status: Ordered ProAir HFA 90 mcg/inh inhalation aerosol with adapter 2, puffs, Inhalation, 4 times a day, PRN, Fill when patient request it, # 1 each, Refills 5, Tot. Refills 5, Maintenance, 03/24/23 10:30:00 EDT, Route to Pharmacy Electronically, [id number], [facility] #[id number], 160,... Start Date: 03/24/23 Status: Ordered Shoes [...] in AM, at 11 AM Given by programming engineer, Dr. Indio Mason, # 30 tablet, Refills [...] EDT, Height,... Start Date: 03/24/23 Status: Ordered tiotropium 1.25 mcg/inh inhalation aerosol 2 puffs = 2.5 mcg, Inhalation, Daily, # 4 Gm, 0 Refills, Maintenance, 12/23/23 11:02:00 EDT, Aerosol, [facility] #[id number], Partial fill upon patient request if the prescription is for a schedule II opioid drug., 165, cm, 12/23/23 9:04:00 EDT,... Start Date: 12/23/23 Status: Ordered triamcinolone 0.025% topical cream 1 application, Topically, 3 times a day, PRN itching Apply to lower extremities Russian, # 30 Gm, 2Refills, Maintenance, 03/24/23 10:34:00 EDT, [facility] #[id number], 1 application Topically 3times a day,Instr:PRN itching ; Apply to lower... Start Date: 03/24/23 Status: Ordered Wixela Inhub 100 mcg-50 mcg inhalation powder 0 Refills, Maintenance, 01/04/24 16:18:00 EDT, Partial fill upon patient request if the prescription is for a schedule II opioid drug. Start Date: 01/04/24 Status: Ordered Problem List Condition Confirmation Course [...] 5, 6, 7, 8 Confirmed 08/09/06 Active [phone] Assistant Engineer Michelle Cain Confirmed Active Varicose vein [...] Team Personnel Name: Haley Gonzalez RN Position: [facility] RN Member Role: Primary Care Nurse Name: Jessica Perrin MD Position: [facility] Physician - Primary Care Member Role: PCP Address: Address: [address] [place] [address]- Care Team Related Persons Name: SANDY BOYCE Address: home [address] [place] [address] Name: COLT BOYCE Address: home [address] [place] [address]
--- OUTSIDE RECORDS SUMMARY | 2024-07-06 12:05 | XMS_ITS | Continuity of Care Document ---
Author Organization [facility] Address [address] [place] [address]- Care Team Providers Care Matchbook Assembler Name Role Phone Marychuy MCCLAIN, Jessica Primary Care Physician [facility]counter [facility] Date(s): 08/13/22 - 09/12/22 [facility] [address]- [place] Allergies, Adverse Reactions, Alerts Substance Reaction [...] Vaccine Date Status Refusal Reason SARS-CoV-2 mRNA (xzewlaf-lhrl-kddsd) vax 02/17/22 Given influenza virus vaccine, inactivated [...] tablet, 11 Refills, Maintenance, 05/13/22 11:27:00 EDT, [facility] #[id number], Partial fill upon cherelle... Start Date: 05/13/22 Status: Ordered albuterol 0.083% inhalation solution 3 mL = 2.5 mg, Inhalation, Every 6 hours, # 25 each, 5 Refills, Maintenance, 08/12/22 15:02:00 EST,[facility] #[id number], 165, cm, 06/18/22 13:19:00 EDT, Height, 88.9, kg, 02/09/22 15:14:00 EDT, Dry Weight Start Date: 08/12/22 Stop Date: 02/08/23 Status: Ordered budesonide 0.5 mg/2 mL inhalation suspension 0.5 mg, 2, mL, Neb, 2 times a day, # 120 mL, Refills 11, Tot. Refills 11, Maintenance, 08/13/22 15:24:00 EST, Suspension, Route to Pharmacy Electronically, [id number], [facility] #[id number], 165, cm, 06/18/22 13:19:00 E... Start Date: 08/13/22 Status: Ordered calcium (as citrate)-vitamin D 315 mg-250 intl units oral tablet 2 tablet, By Mouth, 2 times a day, # 360 tablet, 0 Refills, Maintenance, 09/11/22 8:59:00 EST, [facility] #[id number], 90, TAKE 2 TABLETS BY MOUTH TWICE DAILY, 165, cm, 06/18/22 13:19:00 EDT, Height, 88.9, kg, 02/09/22 15:14:00 EDT, Dry Weight Start Date: 09/11/22 Status: Ordered citalopram 20 mg oral tablet 20 mg, 1, tablet, By Mouth, Daily, # 90 tablet, Refills 3, Tot. Refills 3, Maintenance, 07/08/22 14:31:00 EDT, Route to Pharmacy Electronically, [facility] #[id number], MD is awared of interaction w nicky, 165, cm, 06/18/22 13:19:00 EDT, He... Start Date: 07/08/22 Status: Ordered Clarinex 5 mg oral tablet 1 tablet = 5 mg, By Mouth, Daily, # 90 tablet, 3 Refills, Maintenance, 04/29/22 12:53:00 EDT, Tablet, [facility] #[id number], 165, cm, 02/23/22 14:24:00 EDT, Height, 88.9, [...] 0 Refills, Soft Stop, 10/22/21 10:11:00 EST, [facility] #[id number], 165, cm, 10/22/21 9:05:00 EST, Height, 89.5, kg, 04/23/2121:43:00 EDT, Dry Weight Start Date: 10/22/21 Status: Ordered fluticasone 50 mcg/inh nasal spray See Instructions, SPRAY 2 TIMES IN EACH NOSTRILS EVERY DAY. NEEDED FOR ALLERGY SEASON. WHEN SPRAYING KEEP HEAD DOWN, # 16 Gm, 11 Refills, 02/17/22 13:14:00 EDT, [facility] #[id number], 30, SPRAY 2 TIMES IN EACH NOSTRILS EVERY DAY. NEEDED FO... Start Date: 02/17/22 Status: Ordered formoterol 10 mcg/mL inhalation solution 2 mL = 20 mcg, Inhalation, 2 times a day, using a continuous flow nebulizer, # 60 each, 11 Refills,Maintenance, 08/13/22 15:24:00 EST, Solution, [facility] #[id number], 165, cm, 06/18/22 13:19:00 EDT, Height, 88.9, [...] 06/18/22 13:56:00 EDT, Route to Pharmacy Electronically, [facility] #[id number], Partial fill upon patient request if... Start Date: 06/18/22 Status: Ordered hydrochlorothiazide 12.5 mg oral tablet 1 tablet = 12.5 mg, By Mouth, Daily, discontinue HCTZ/lisinopril 25mg /20mg, # 30 tablet, 11 Refills, Maintenance, 10/29/21 13:48:00 EST, Tablet, [facility] #[id number], 165, cm, 10/29/21 12:16:00 EST, Height, 89.5, kg, 04/23/21 21:43:00 EDT, Start Date: 10/29/21 Status: Ordered levothyroxine 0.05 mg oral tablet 1 tablet, By Mouth, Daily, # 90 tablet, 1 Refills, Maintenance, 05/20/22 16:09:00 EDT, [facility] #[id number], 165, cm, 05/20/22 16:02:00 EDT, Height, 88.9, kg, 02/09/22 15:14:00 EDT, Dry Weight Start Date: 05/20/22 Status: Ordered lisinopril 40 mg oral tablet 1 tablet = 40 mg, By Mouth, Daily, discontinue HCTZ/lisinopril 25mg /20mg, # 30 tablet, 11 Refills,Maintenance, 10/29/21 13:47:00 EST, Tablet, [facility] #[id number], Partial fill upon patient request if the prescription is for a schedule II op... Start Date: 10/29/21 Status: Ordered Matzim LA 360 mg/24 hours oral tablet, extended release 1 tablet, By Mouth, Daily, # 90 tablet, 3 Refills, 02/17/22 13:08:00 EDT, [facility] #[id number], 165, cm, 02/17/22 12:49:00 EDT, Height, 88.9, kg, 02/09/22 15:14:00 EDT, Dry Weight Start Date: 02/17/22 Status: Ordered metFORMIN 500 mg oral tablet 1 tablet, By Mouth, 2 times a day, # 180 tablet, 1 Refills, Maintenance, 09/10/22 18:37:00 EST, [facility] #[id number], 165, cm, 06/18/22 13:19:00 EDT, Height, 88.9, kg, 02/09/22 15:14:00 EDT, Dry Weight Start Date: 09/10/22 Status: Ordered mirtazapine 15 mg oral tablet 0.5 tablet, By Mouth, Daily at bedtime, DECREASED DOSE., # 45 tablet, 1 Refills, Maintenance, 05/12/22 9:17:00 EDT, [facility] #[id number], 165, cm, 02/23/22 14:24:00 EDT, Height, 88.9, kg, 02/09/22 15:14:00 EDT, Dry Weight Start Date: 05/12/22 Status: Ordered montelukast 10 mg oral tablet 1, tablet, By Mouth, Daily at bedtime, SUPPLY., # 90 tablet, Refills 1, Maintenance, 06/18/22 14:04:00 EDT, Route to Pharmacy Electronically, [facility] #[id number], 165, cm, 06/18/22 13:19:00 EDT, Height, 88.9, kg, 02/09/22 15:14:00 EDT, Dry Weight Start Date: 06/18/22 Stop Date: 09/16/22 Status: Ordered Cmb-tvq-zvcec medical-grade oxford diabetic shoes, depth or hightop Pho-oiv-dhgwa medical-grade oxford diabetic shoes, depth or hightop, [...] Refills, Maintenance, 12/18/21 15:48:00 EDT, EC Capsule, [facility] #[id number], 165, cm, 10/29/21 12:16:00 EST,... Start Date: 12/18/21 Status: Ordered Paxlovid 150 mg-100 mg (150 mg-100 mg Dose) oral tablet See Instructions, Three tablets by mouth BID as per package directions, # 1 pack/packet, 0 Refills,Acute 06/11/23 9:38:00 EDT, 06/10/22 9:37:00 EDT, [facility] #[id number], Partial fill upon patient request if the prescription is for a schedule... Start Date: 06/10/22 Stop Date: 06/11/23 Status: Ordered pravastatin 80 mg oral tablet 1 tablet, By Mouth, Daily, # 90 tablet, 1 Refills, Maintenance, 06/27/22 12:04:00 EDT, [facility] #[id number], 165, cm, 06/18/22 13:19:00 EDT, Height, 88.9, kg, 02/09/22 15:14:00 EDT, Dry Weight Start Date: 06/27/22 Status: Ordered Premarin Vaginal 0.625 mg/gm cream with applicator See Instructions, APPLY 1/2 GRAM IN THE VAGINA EVERY WEDNESDAY AND WEDNESDAY, # 30 Gm, 11 Refills, Maintenance, 05/11/22 14:58:00 EDT, [facility] #[id number], 30, APPLY 1/2 GRAM IN THE VAGINA [...] Gm, 5 Refills, Maintenance, 05/13/22 11:27:00 EDT, [facility] #[id number], Partial fill upon patient request if the [...] 4, 5, 6, 7 Confirmed 08/09/06 Active *[phone] Tax Audit Manager Isabel Arellano Confirmed Active Varicose vein [...] Team Personnel Name: Haley Gonzalez RN Position: [facility] RN Member Role: Primary Care Nurse Name: Jessica Perrin MD Position: [facility] Primary Care Physician Member Role: PCP Address: Address: [address] [place] [address]- Care Team Related Persons Name: SANDY BOYCE Address: home [address] [place] [address] Name: COLT BOYCE Address: [address] [place] [address]
--- OUTSIDE RECORDS SUMMARY | 2024-07-06 12:05 | XMS_ITS | Continuity of Care Document ---
Author Organization [facility] Address [address] [place] [address]- Care Team Providers Care Sr. Manager Corporate Communications Name Role Phone Marychuy MCCLAIN, Jessica Primary Care Physician [facility] Date[facility]s): 01/13/23 - 02/12/23 [facility] [address]- [place] Allergies, Adverse Reactions, Alerts Substance Reaction [...] virus vaccine, inactivated 5 07/29/06 Gi javon [id number] 12y+ bivalent booster vax 07/28/22 Recorded SARS-CoV-2 mRNA ([id number]) vax 02/17/22 Given SARS-CoV-2 (COVID-19) mRNA BNT-162b2 [...] tablet, 11 Refills, Maintenance, 05/13/22 11:27:00 EDT, [facility] #[id number], Partial fill upon cherelle... Start Date: 05/13/22 Status: Ordered albuterol 0.083% inhalation solution 3 mL = 2.5 mg, Inhalation, Every 6 hours, # 25 each, 5 Refills, Maintenance, 08/12/22 15:02:00 EST,[facility] #[id number], 165, cm, 06/18/22 13:19:00 EDT, Height, 88.9, kg, 02/09/22 15:14:00 EDT, Dry Weight Start Date: 08/12/22 Stop Date: 02/08/23 Status: Ordered apixaban 5 mg oral tablet 1 tablet = 5 mg, By Mouth, 2 times a day, # 180 tablet, 0 Refills, Maintenance, 12/16/22 16:34:00 EDT, Tablet, [facility] #[id number], Partial fill upon patient request if the prescription is for a schedule II opioid drug., 163, cm, 12/16/22 7:58... Start Date: 12/16/22 Stop Date: 03/16/23 Status: Ordered budesonide 0.5 mg/2 mL inhalation suspension 0.5 mg, 2, mL, Neb, 2 times a day, # 120 mL, Refills 11, Tot. Refills 11, Maintenance, 10/16/22 16:58:00 EST, Suspension, Route to Pharmacy Electronically, [id number], [facility] #[id number], 163, cm, 10/16/22 16:21:00 E... Start Date: 10/16/22 Status: Ordered budesonide 0.5 mg/2 mL inhalation suspension 0.5 mg, 2, mL, Neb, 2 times a day, # 120 mL, Refills 11, Tot. Refills 11, Maintenance, 08/13/22 15:24:00 EST, Suspension, Route to Pharmacy Electronically, [id number], [facility] #[id number], 165, cm, 06/18/22 13:19:00 E... Start Date: 08/13/22 Status: Ordered calcium (as citrate)-vitamin D 315 mg-250 intl units oral tablet 2 tablet, By Mouth, 2 times a day, # 360 tablet, 0 Refills, Maintenance, 12/07/22 14:46:00 EDT, [facility] #[id number], 90, 2 tablet By Mouth 2 times a day, 163, cm, 11/05/22 16:59:00 EST, Height, 90, kg, 11/05/22 16:59:00 EST, Dry Weight Start Date: 12/07/22 Status: Ordered citalopram 20 mg oral tablet 20 mg, 1, tablet, By Mouth, Daily, # 90 tablet, Refills 3, Tot. Refills 3, Maintenance, 07/08/22 14:31:00 EDT, Route to Pharmacy Electronically, [facility] #05730, is awared of interaction w nicky, 165, cm, 06/18/22 13:19:00 EDT, He... Start Date: 07/08/22 Status: Ordered Clarinex 5 mg oral tablet 1 tablet = 5 mg, By Mouth, Daily, # 90 tablet, 3 Refills, Maintenance, 04/29/22 12:53:00 EDT, Tablet, [facility] #[id number], 165, cm, 02/23/22 14:24:00 EDT, Height, 88.9, [...] 0 Refills, Soft Stop, 10/22/21 10:11:00 EST, [facility] #[id number], 165, cm, 10/22/21 9:05:00 EST, Height, 89.5, kg, 04/23/2121:43:00 EDT, Dry Weight Start Date: 10/22/21 Status: Ordered fluticasone 50 mcg/inh nasal spray See Instructions, SPRAY 2 TIMES IN EACH NOSTRILS EVERY DAY. NEEDED FOR ALLERGY SEASON. WHEN SPRAYING KEEP HEAD DOWN, # 16 Gm, 11 Refills, 02/17/22 13:14:00 EDT, [facility] #[id number], 30, SPRAY 2 TIMES IN EACH NOSTRILS EVERY DAY. NEEDED FO... Start Date: 02/17/22 Status: Ordered formoterol 10 mcg/mL inhalation solution 2 mL = 20 mcg, Inhalation, 2 times a day, using a continuous flow nebulizer, # 120 mL, 11 Refills, Maintenance, 10/16/22 16:58:00 EST, Solution, [facility] #[id number], Partial fill upon patientrequest if the prescription [...] 11/05/22 17:53:00 EST, Route to Pharmacy Electronically, [facility] #55613, Partial fill upon patient request if the prescription is for a schedule II opi... Start Date: 11/05/22 Stop Date: 11/10/22 Status: Ordered gabapentin 300 mg oral capsule 300 mg, 1, capsule, By Mouth, 2 times a day, PRN, # 20 capsule, Refills 0, Tot. Refills 0, Maintenance, Pain , Severe, 11/05/22 17:53:00 EST, Route to Pharmacy Electronically, [facility] #[id number], Partial fill upon patient request if the presc... Start Date: 11/05/22 Stop Date: 11/15/22 Status: Ordered hydrALAZINE 25 mg oral tablet 25 mg, 1, tablet, By Mouth, 3 times a day, discontinue hydralazine 10mg, # 90 tablet, Refills 11, Tot. Refills 11, Maintenance, 06/18/22 13:56:00 EDT, Route to Pharmacy Electronically, [facility] #[id number], Partial fill upon patient request if... Start [...] tablet, 11 Refills, Maintenance, 09/30/22 12:56:00 EST, [facility] #[id number], 163, cm, 09/30/22 11:48:00 EST, Height, 92.8, kg, 09/24/22 22:19:00 EST, Dry Weight Start Date: 09/30/22 Status: Ordered lisinopril 40 mg oral tablet 1 tablet = 40 mg, By Mouth, 2 times a day, increase dose discontinue HCTZ 12.5mg, # 60 tablet, 11 Refills, Maintenance, 09/30/22 12:54:00 EST, Tablet, [facility] #[id number], 163, cm, 09/30/22 11:48:00 EST, Height, 92.8, kg, 09/24/22 22:19:00... Start Date: 09/30/22 Stop Date: 09/25/23 Status: Ordered Matzim LA 360 mg/24 hours oral tablet, extended release 1 tablet, By Mouth, Daily, # 90 tablet, 3 Refills, 02/17/22 13:08:00 EDT, [facility] #[id number], 165, cm, 02/17/22 12:49:00 EDT, Height, 88.9, kg, 02/09/22 15:14:00 EDT, Dry Weight Start Date: 02/17/22 Status: Ordered metFORMIN 500 mg oral tablet, extended release 1 tablet = 500 mg, By Mouth, Daily in AM, discontinue metformin 500mg with meal, # 30 tablet, 11 Refills, Maintenance, 09/30/22 12:51:00 EST, ER Tablet, [facility] #25254, 163, cm, 09/30/2310:48:00 EST, Height, 92.8, kg, 09/24/22 22:1... Start Date: 09/30/22 Status: Ordered mirtazapine 15 mg oral tablet 0.5 tablet, By Mouth, Daily at bedtime, DECREASED DOSE, # 45 tablet, 1 Refills, Maintenance, 10/20/22 20:06:00 EST, [facility] #[id number], 163, cm, 10/16/22 16:21:00 EST, Height, 92.8, kg, 09/24/22 22:19:00 EST, Dry Weight Start Date: 10/20/22 Status: Ordered montelukast 10 mg oral tablet 1, tablet, By Mouth, Daily at bedtime, SUPPLY., # 90 tablet, Refills 1, Tot. Refills 1, Maintenance, 12/07/22 14:50:00 EDT, Route to Pharmacy Electronically, [facility] #[id number], 163, cm, 11/05/22 16:59:00 EST, Height, 90, kg, 11/05/22 16:59:0... Start Date: 12/07/22 Stop Date: 06/05/23 Status: Ordered Utw-zqi-bxfdu medical-grade oxford diabetic shoes, depth or hightop Sld-txl-qldoq medical-grade oxford diabetic shoes, depth or hightop, [...] Refills, Maintenance, 12/07/22 14:49:00 EDT, EC Capsule, [facility] #[id number], 163, cm, 11/05/22 16:59:00 EST,... Start Date: 12/07/22 Status: Ordered pravastatin 80 mg oral tablet 1 tablet, By Mouth, Daily, # 90 tablet, 1 Refills, Maintenance, 12/07/22 14:47:00 EDT, [facility] #47576, 163, cm, 11/05/22 16:59:00 EST, Height, 90, kg, 11/05/22 16:59:00 EST, Dry Weight Start Date: 12/07/22 Status: Ordered Premarin Vaginal 0.625 mg/gm cream with applicator See Instructions, APPLY 1/2 GRAM IN THE VAGINA EVERY WEDNESDAY AND WEDNESDAY, # 30 Gm, 11 Refills, Maintenance, 05/11/22 14:58:00 EDT, [facility] #61050, 30, APPLY 1/2 GRAM IN THE VAGINA EVERY WEDNESDAY AND WEDNESDAY, 165, cm, 02/23/22 14:24:00 EDT,... Start Date: 05/11/22 Status: Ordered ProAir HFA 90 mcg/inh inhalation aerosol with adapter 2, puffs, Inhalation, 4 times a day, PRN, # 1 each, Refills 11, Tot. Refills 11, Maintenance, 10/16/22 17:00:00 EST, Route to Pharmacy Electronically, [id number], [facility] #[id number], 163, cm, 10/16/22 16:21:00 EST, H... Start [...] day, PRN itching Apply to lower extremities [place] Islander, # 30 Gm, 0Refills, Maintenance, 01/07/23 14:27:00 EDT, [facility], Partial fill upon patient request if [...] 4, 5, 6, 7 Confirmed 08/09/06 Active *[phone] Net Developer With [employer] Francis Caity Confirmed Active Varicose vein Confirmed [...] Care Team Personnel Name: Carlos RNHaley Position: [facility] RN Member Role: Primary Care Nurse Name: Jessica Perrin MD Position: [facility] Physician - Primary Care Member Role: PCP Address: Address: [address] [place] [address]- Care Team Related Persons Name: SANDY BOYCE Address: home [address] [place] [address] Name: COLT BOYCE Address: [address] [place] [address]
--- OUTSIDE RECORDS SUMMARY | 2024-07-06 12:05 | XMS_ITS | Continuity of Care Document ---
Author Organization [facility] Address [address] [place] [id number]- Care Team Providers Care Sole Leveler Machine Name Role Phone Marychuy MCCLAIN, Jessica Primary Care Physician [facility] Date[facility]s): 10/07/22 - 11/06/[address] [facility] [address] [address]- Attending Physician: Dominik Elizabeth Admitting Physician: Dominik Elizabeth Referring Physician: AdmDominik garcia Allergies, Adverse Reactions, Alerts Substance Reaction Severity [...] Vaccine Date Status Refusal Reason SARS-CoV-2 mRNA (fdhlvpp-wjkh-doxoe) vax 02/17/22 Given influenza virus vaccine, inactivated [...] tablet, 11 Refills, Maintenance, 05/13/22 11:27:00 EDT, [facility] #[id number], Partial fill upon cherelle... Start Date: 05/13/22 Status: Ordered albuterol 0.083% inhalation solution 3 mL = 2.5 mg, Inhalation, Every 6 hours, # 25 each, 5 Refills, Maintenance, 08/12/22 15:02:00 EST,[facility] #35056, 165, cm, 06/18/22 13:19:00 EDT, Height, 88.9, kg, 02/09/22 15:14:00 EDT, Dry Weight Start Date: 08/12/22 Stop Date: 02/08/23 Status: Ordered budesonide 0.5 mg/2 mL inhalation suspension 0.5 mg, 2, mL, Neb, 2 times a day, # 120 mL, Refills 11, Tot. Refills 11, Maintenance, 10/16/22 16:58:00 EST, Suspension, Route to Pharmacy Electronically, [id number], [facility] #[id number], 163, cm, 10/16/22 16:21:00 E... Start Date: 10/16/22 Status: Ordered budesonide 0.5 mg/2 mL inhalation suspension 0.5 mg, 2, mL, Neb, 2 times a day, # 120 mL, Refills 11, Tot. Refills 11, Maintenance, 08/13/22 15:24:00 EST, Suspension, Route to Pharmacy Electronically, [id number], [facility] #[id number], 165, cm, 06/18/22 13:19:00 E... Start Date: 08/13/22 Status: Ordered calcium (as citrate)-vitamin D 315 mg-250 intl units oral tablet 2 tablet, By Mouth, 2 times a day, # 360 tablet, 0 Refills, Maintenance, 09/11/22 8:59:00 EST, [facility] #64514, 90, TAKE 2 TABLETS BY MOUTH TWICE DAILY, 165, cm, 06/18/22 13:19:00 EDT, Height, 88.9, kg, 02/09/22 15:14:00 EDT, Dry Weight Start Date: 09/11/22 Status: Ordered citalopram 20 mg oral tablet 20 mg, 1, tablet, By Mouth, Daily, # 90 tablet, Refills 3, Tot. Refills 3, Maintenance, 07/08/22 14:31:00 EDT, Route to Pharmacy Electronically, [facility] #[id number], MD is awared of interaction w rosaseshelli, 165, cm, 06/18/22 13:19:00 EDT, He... Start Date: 07/08/22 Status: Ordered Clarinex 5 mg oral tablet 1 tablet = 5 mg, By Mouth, Daily, # 90 tablet, 3 Refills, Maintenance, 04/29/22 12:53:00 EDT, Tablet, [facility] #[id number], 165, cm, 02/23/22 14:24:00 EDT, Height, 88.9, [...] 0 Refills, Soft Stop, 10/22/21 10:11:00 EST, [facility] #[id number], 165, cm, 10/22/21 9:05:00 EST, Height, 89.5, kg, 04/23/2121:43:00 EDT, Dry Weight Start Date: 10/22/21 Status: Ordered fluticasone 50 mcg/inh nasal spray See Instructions, SPRAY 2 TIMES IN EACH NOSTRILS EVERY DAY. NEEDED FOR ALLERGY SEASON. WHEN SPRAYING KEEP HEAD DOWN, # 16 Gm, 11 Refills, 02/17/22 13:14:00 EDT, [facility] #37137, 30, SPRAY 2 TIMES IN EACH NOSTRILS EVERY DAY. NEEDED FO... Start Date: 02/17/22 Status: Ordered formoterol 10 mcg/mL inhalation solution 2 mL = 20 mcg, Inhalation, 2 times a day, using a continuous flow nebulizer, # 120 mL, 11 Refills, Maintenance, 10/16/22 16:58:00 EST, Solution, [facility] #[id number], Partial fill upon patientrequest if the prescription [...] 11/05/22 17:53:00 EST, Route to Pharmacy Electronically, [facility] #[id number], Partial fill upon patient request if the prescription is for a schedule II opi... Start Date: 11/05/22 Stop Date: 11/10/22 Status: Ordered gabapentin 300 mg oral capsule 300 mg, 1, capsule, By Mouth, 2 times a day, PRN, # 20 capsule, Refills 0, Tot. Refills 0, Maintenance, Pain , Severe, 11/05/22 17:53:00 EST, Route to Pharmacy Electronically, [facility] #[id number], Partial fill upon patient request if the presc... Start Date: 11/05/22 Stop Date: 11/15/22 Status: Ordered hydrALAZINE 25 mg oral tablet 25 mg, 1, tablet, By Mouth, 3 times a day, discontinue hydralazine 10mg, # 90 tablet, Refills 11, Tot. Refills 11, Maintenance, 06/18/22 13:56:00 EDT, Route to Pharmacy Electronically, [facility] #[id number], Partial fill upon patient request if... Start [...] tablet, 11 Refills, Maintenance, 09/30/22 12:56:00 EST, [facility] #48538, 163, cm, 09/30/22 11:48:00 EST, Height, 92.8, kg, 09/24/22 22:19:00 EST, Dry Weight Start Date: 09/30/22 Status: Ordered lisinopril 40 mg oral tablet 1 tablet = 40 mg, By Mouth, 2 times a day, increase dose discontinue HCTZ 12.5mg, # 60 tablet, 11 Refills, Maintenance, 09/30/22 12:54:00 EST, Tablet, [facility] #[id number], 163, cm, 09/30/22 11:48:00 EST, Height, 92.8, kg, 09/24/22 22:19:00... Start Date: 09/30/22 Stop Date: 09/25/23 Status: Ordered Matzim LA 360 mg/24 hours oral tablet, extended release 1 tablet, By Mouth, Daily, # 90 tablet, 3 Refills, 02/17/22 13:08:00 EDT, [facility] #[id number], 165, cm, 02/17/22 12:49:00 EDT, Height, 88.9, kg, 02/09/22 15:14:00 EDT, Dry Weight Start Date: 02/17/22 Status: Ordered metFORMIN 500 mg oral tablet, extended release 1 tablet = 500 mg, By Mouth, Daily in AM, discontinue metformin 500mg with meal, # 30 tablet, 11 Refills, Maintenance, 09/30/22 12:51:00 EST, ER Tablet, [facility] #[id number], 163, cm, 09/30/2310:48:00 EST, Height, 92.8, kg, 09/24/22 22:1... Start Date: 09/30/22 Status: Ordered mirtazapine 15 mg oral tablet 0.5 tablet, By Mouth, Daily at bedtime, DECREASED DOSE, # 45 tablet, 1 Refills, Maintenance, 10/20/22 20:06:00 EST, [facility] #[id number], 163, cm, 10/16/22 16:21:00 EST, Height, 92.8, kg, 09/24/22 22:19:00 EST, Dry Weight Start Date: 10/20/22 Status: Ordered montelukast 10 mg oral tablet 1, tablet, By Mouth, Daily at bedtime, SUPPLY., # 90 tablet, Refills 1, Maintenance, 06/18/22 14:04:00 EDT, Route to Pharmacy Electronically, [facility] #[id number], 165, cm, 06/18/22 13:19:00 EDT, Height, 88.9, kg, 02/09/22 15:14:00 EDT, Dry Weight Start Date: 06/18/22 Stop Date: 09/16/22 Status: Ordered Rwa-qlu-uokry medical-grade oxford diabetic shoes, depth or hightop Ggn-oco-xtvon medical-grade oxford diabetic shoes, depth or hightop, [...] Refills, Maintenance, 12/18/21 15:48:00 EDT, EC Capsule, [facility] #[id number], 165, cm, 10/29/21 12:16:00 EST,... Start Date: 12/18/21 Status: Ordered pravastatin 80 mg oral tablet 1 tablet, By Mouth, Daily, # 90 tablet, 1 Refills, Maintenance, 06/27/22 12:04:00 EDT, [facility] #73710, 165, cm, 06/18/22 13:19:00 EDT, Height, 88.9, kg, 02/09/22 15:14:00 EDT, Dry Weight Start Date: 06/27/22 Status: Ordered Premarin Vaginal 0.625 mg/gm cream with applicator See Instructions, APPLY 1/2 GRAM IN THE VAGINA EVERY WEDNESDAY AND WEDNESDAY, # 30 Gm, 11 Refills, Maintenance, 05/11/22 14:58:00 EDT, [facility] #06807, 30, APPLY 1/2 GRAM IN THE VAGINA EVERY WEDNESDAY AND WEDNESDAY, 165, cm, 02/23/22 14:24:00 EDT,... Start Date: 05/11/22 Status: Ordered ProAir HFA 90 mcg/inh inhalation aerosol with adapter 2, puffs, Inhalation, 4 times a day, PRN, # 1 each, Refills 11, Tot. Refills 11, Maintenance, 10/16/22 17:00:00 EST, Route to Pharmacy Electronically, [id number], [facility] #[id number], 163, cm, 10/16/22 16:21:00 EST, H... Start [...] 4, 5, 6, 7 Confirmed 08/09/06 Active *[phone] Cashier Wrapper Francis Caity Confirmed Active Varicose vein Confirmed [...] Team Personnel Name: Haley Gonzalez RN Position: [facility] RN Member Role: Primary Care Nurse Name: Jessica Perrin MD Position: [facility] Primary Care Physician Member Role: PCP Address: Address: [address] [place] [id number]- Care Team Related Persons Name: SANDY BOYCE Address: [address] [place] [address] Name: CARLI COLT Address: [address] [place] [address]
--- OUTSIDE RECORDS SUMMARY | 2024-07-06 12:05 | XMS_ITS | Continuity of Care Document ---
Author Organization [facility] Address [address] [place] [address]- Care Team Providers Care Residential Caregiver Name Role Phone Marychuy MCCLAIN, Jessica Primary Care Physician [facility]): [facility]20 - 06/23/20 [facility] [address] [place] [id number]- [facility] Allergies, Adverse Reactions, Alerts Substance Reaction Severity [...] Refills, Maintenance, 08/30/19 9:25:00 EST, ER Tablet, [facility] #[id number], 162.5, cm, 07/25/19 9:45:00 ES... Start Date: [...] 02/02/20 16:28:00 EDT, Route to Pharmacy Electronically, [facility] #[id number], 165, cm, 11/03/19 18:19:00 EST, Height, 88, kg, 11/03/19 18:19:00... Start Date: 02/02/20 Status: Ordered calcium (as citrate)-vitamin D 315 mg-250 intl units oral tablet 2 tablet, By Mouth, 2 times a day, Tej, # 360 tablet, 3 Refills, Maintenance, 02/02/20 16:28:00 EDT, Tablet, [facility] #[id number], 2 tablet By Mouth 2 times a day,x90 days,Instr:Tej, 165, cm, 11/03/19 18:19:00 EST, Height, 88, kg, 11/03/19 18... Start Date: 02/02/20 Stop Date: 01/27/21 Status: Ordered celecoxib 100 mg oral capsule 1 capsule = 100 mg, By Mouth, 2 times a day, PRN knee pain, # 60 capsule, 3 Refills, Maintenance, 05/28/20 12:49:00 EDT, Capsule, [facility] #54503, 165, cm, 11/03/19 18:19:00 EST, Height, 88, kg, 11/03/19 18:19:00 EST, Dry Weight Start Date: 05/28/20 Status: Ordered citalopram 20 mg oral tablet 20 mg, 1, tablet, By Mouth, Daily, # 90 tablet, Refills 3, Tot. Refills 3, Maintenance, 07/18/19 10:44:28 EST, Route to Pharmacy Electronically, [id number], [facility] #[id number], is awared of interaction w prilosec Start Date: 07/18/19 Status: Ordered Colace sodium 100 mg oral capsule 100 mg, 1, capsule, By Mouth, 2 times a day, PRN, with plenty of water, # 180 capsule, Refills 3, Tot. Refills 3, Maintenance, as needed for constipation, 08/30/19 9:25:00 EST, Route to Pharmacy Electronically, [facility] #[id number], 162.5, cm,... Start Date: 08/30/19 Status: Ordered [...] Gm, 11 Refills, Maintenance, 10/25/19 11:57:00 EST, [facility] #[id number], dispe... Start Date: 10/25/19 Status: Ordered hydrALAZINE [...] 3 Refills, Maintenance, 09/04/19 22:49:00 EST, Tablet, [facility] #64506, 90 days, 1 tablet By Mouth Daily,Instr:discontinue HCTZ 12.5/lisnopril 20mg, 162.5, cm, 1... Start Date: 09/04/19 Status: Ordered Incruse Ellipta 62.5 mcg/inh inhalation powder = 62.5 mcg, Inhalation, Every 24 hours, doses should be taken at least 24 hours apart discontinue Tudorza, # 30 each, 11 Refills, Maintenance, 08/30/19 9:23:00 EST, [facility] #66731, 162.5, cm, 07/25/19 9:45:00 EST, Height, 85.9, [...] tablet, 0 Refills, Maintenance, 06/12/20 14:12:00 EDT, [facility] #57849, 165, cm, 11/03/19 18:19:00 EST, Height, 88, kg, 11/03/19 18:19:00 EST, Dry Weight Start Date: 06/12/20 Status: Ordered loratadine 10 mg oral tablet 10 mg, 1, tablet, By Mouth, Daily, PRN, # 90 tablet, Refills 3, Tot. Refills 3, Maintenance, as needed for allergy symptoms, 08/30/19 9:25:00 EST, Route to Pharmacy Electronically, [facility] #[id number], 162.5, cm, 07/25/19 9:45:00 EST, Height,... Start Date: 08/30/19 Status: Ordered metFORMIN 500 mg oral tablet 1 tablet = 500 mg, By Mouth, 2 times a day, discontinue metformin 1000mg, # 180 tablet, 0 Refills, Maintenance, 06/17/20 9:44:00 EDT, Tablet, [facility] #96903, 165, cm, 11/03/19 18:19:00 EST, Height, 88, kg, 11/03/19 18:19:00 EST, Dry Weight Start Date: 06/17/20 Status: Ordered Qsq-zkw-kyvel medical-grade oxford diabetic shoes, depth or hightop Qzf-sag-nqbkh medical-grade oxford diabetic shoes, depth or hightop, [...] 3 Refills, Maintenance, 08/30/19 9:25:00 EST, Tablet, [facility] #46934, 162.5, cm, 07/25/19 9:45:00 EST, Height, 85.9, kg, 199:45:00 EST, Dry Weight Start Date: 08/30/19 Status: Ordered Premarin Vaginal 0.625 mg/gm cream with applicator = 0.5 Gm, Vaginally, Every Wednesday and , # 42.5 Gm, 11 Refills, Maintenance, 02/02/20 16:27:00 EDT, [facility] #[id number], discontinue estradiol 10mcg vaginal, 0.5 Gm Vaginally Every Wednesday and , 165, cm, 11/03/19 18:19:00 EST,... Start Date: 02/02/20 Status: Ordered PriLOSEC OTC 20 mg oral delayed release tablet 1 tablet = 20 mg, By Mouth, Daily, Take 30 mins before breakfast, # 90 tablet, 3 Refills, Maintenance, 02/02/20 16:28:00 EDT, [facility] #94395, is awared of interaction with citalopram,165, cm, 11/03/19 18:19:00 EST, Height, 88, kg,... Start Date: 02/02/20 Status: Ordered Remeron 15 mg oral tablet 0.5 tablet = 7.5 mg, By Mouth, Daily at bedtime, # 45 tablet, 1 Refills, Maintenance, 06/05/20 9:34:00 EDT, Tablet, [facility] #[id number], 165, cm, 11/03/19 18:19:00 EST, Height, 88, [...] 06/28/19 7:33:11 EDT, Route to Pharmacy Electronically, [id number], [facility] #[id number] Start Date: 06/28/19 Status: Ordered Sinus rinse [...] Gm, 5 Refills, Maintenance, 04/04/20 12:19:00 EDT, [facility] #[id number]... 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
--- OUTSIDE RECORDS SUMMARY | 2024-07-06 12:05 | XMS_ITS | Continuity of Care Document ---
Author Organization [facility] Address [address] [place] [id number]- Care Team Providers Care Crane Chaser Name Role Phone Marychuy MCCLAIN, Jessica Primary Care Physician [facility] Date[facility]): 10/16/22 - 11/15/22 [facility] [address] [place] [id number] Attending Physician: Dominik Elizabeth Admitting [...] Vaccine Date Status Refusal Reason SARS-CoV-2 mRNA (ngjzrtj-fmuv-ptlby) vax 02/17/22 Given influenza virus vaccine, inactivated [...] tablet, 11 Refills, Maintenance, 05/13/22 11:27:00 EDT, [facility] #[id number], Partial fill upon cherelle... Start Date: 05/13/22 Status: Ordered albuterol 0.083% inhalation solution 3 mL = 2.5 mg, Inhalation, Every 6 hours, # 25 each, 5 Refills, Maintenance, 08/12/22 15:02:00 EST,[facility] #[id number], 165, cm, 06/18/22 13:19:00 EDT, Height, 88.9, kg, 02/09/22 15:14:00 EDT, Dry Weight Start Date: 08/12/22 Stop Date: 02/08/23 Status: Ordered budesonide 0.5 mg/2 mL inhalation suspension 0.5 mg, 2, mL, Neb, 2 times a day, # 120 mL, Refills 11, Tot. Refills 11, Maintenance, 10/16/22 16:58:00 EST, Suspension, Route to Pharmacy Electronically, [id number], [facility] #[id number], 163, cm, 10/16/22 16:21:00 E... Start Date: 10/16/22 Status: Ordered budesonide 0.5 mg/2 mL inhalation suspension 0.5 mg, 2, mL, Neb, 2 times a day, # 120 mL, Refills 11, Tot. Refills 11, Maintenance, 08/13/22 15:24:00 EST, Suspension, Route to Pharmacy Electronically, [id number], [facility] #[id number], 165, cm, 06/18/22 13:19:00 E... Start Date: 08/13/22 Status: Ordered calcium (as citrate)-vitamin D 315 mg-250 intl units oral tablet 2 tablet, By Mouth, 2 times a day, # 360 tablet, 0 Refills, Maintenance, 09/11/22 8:59:00 EST, [facility] #[id number], 90, TAKE 2 TABLETS BY MOUTH TWICE DAILY, 165, cm, 06/18/22 13:19:00 EDT, Height, 88.9, kg, 02/09/22 15:14:00 EDT, Dry Weight Start Date: 09/11/22 Status: Ordered citalopram 20 mg oral tablet 20 mg, 1, tablet, By Mouth, Daily, # 90 tablet, Refills 3, Tot. Refills 3, Maintenance, 07/08/22 14:31:00 EDT, Route to Pharmacy Electronically, [facility] #[id number], MD is awared of interaction w rosasec, 165, cm, 06/18/22 13:19:00 EDT, He... Start Date: 07/08/22 Status: Ordered Clarinex 5 mg oral tablet 1 tablet = 5 mg, By Mouth, Daily, # 90 tablet, 3 Refills, Maintenance, 04/29/22 12:53:00 EDT, Tablet, [facility] #[id number], 165, cm, 02/23/22 14:24:00 EDT, Height, 88.9, [...] 0 Refills, Soft Stop, 10/22/21 10:11:00 EST, [facility] #[id number], 165, cm, 10/22/21 9:05:00 EST, Height, 89.5, kg, 04/23/2121:43:00 EDT, Dry Weight Start Date: 10/22/21 Status: Ordered fluticasone 50 mcg/inh nasal spray See Instructions, SPRAY 2 TIMES IN EACH NOSTRILS EVERY DAY. NEEDED FOR ALLERGY SEASON. WHEN SPRAYING KEEP HEAD DOWN, # 16 Gm, 11 Refills, 02/17/22 13:14:00 EDT, [facility] #[id number], 30, SPRAY 2 TIMES IN EACH NOSTRILS EVERY DAY. NEEDED FO... Start Date: 02/17/22 Status: Ordered formoterol 10 mcg/mL inhalation solution 2 mL = 20 mcg, Inhalation, 2 times a day, using a continuous flow nebulizer, # 120 mL, 11 Refills, Maintenance, 10/16/22 16:58:00 EST, Solution, [facility] #[id number], Partial fill upon patientrequest if the prescription [...] 11/05/22 17:53:00 EST, Route to Pharmacy Electronically, [facility] #[id number], Partial fill upon patient request if the prescription is for a schedule II opi... Start Date: 11/05/22 Stop Date: 11/10/22 Status: Ordered gabapentin 300 mg oral capsule 300 mg, 1, capsule, By Mouth, 2 times a day, PRN, # 20 capsule, Refills 0, Tot. Refills 0, Maintenance, Pain , Severe, 11/05/22 17:53:00 EST, Route to Pharmacy Electronically, [facility] #[id number], Partial fill upon patient request if the presc... Start Date: 11/05/22 Stop Date: 11/15/22 Status: Ordered hydrALAZINE 25 mg oral tablet 25 mg, 1, tablet, By Mouth, 3 times a day, discontinue hydralazine 10mg, # 90 tablet, Refills 11, Tot. Refills 11, Maintenance, 06/18/22 13:56:00 EDT, Route to Pharmacy Electronically, [email or web address] #[id number], Partial fill upon patient request if... Start [...] tablet, 11 Refills, Maintenance, 09/30/22 12:56:00 EST, [facility] #[id number], 163, cm, 09/30/22 11:48:00 EST, Height, 92.8, kg, 09/24/22 22:19:00 EST, Dry Weight Start Date: 09/30/22 Status: Ordered lisinopril 40 mg oral tablet 1 tablet = 40 mg, By Mouth, 2 times a day, increase dose discontinue HCTZ 12.5mg, # 60 tablet, 11 Refills, Maintenance, 09/30/22 12:54:00 EST, Tablet, [facility] #[id number], 163, cm, 09/30/22 11:48:00 EST, Height, 92.8, kg, 09/24/22 22:19:00... Start Date: 09/30/22 Stop Date: 09/25/23 Status: Ordered Matzim LA 360 mg/24 hours oral tablet, extended release 1 tablet, By Mouth, Daily, # 90 tablet, 3 Refills, 02/17/22 13:08:00 EDT, [facility] #[id number], 165, cm, 02/17/22 12:49:00 EDT, Height, 88.9, kg, 02/09/22 15:14:00 EDT, Dry Weight Start Date: 02/17/22 Status: Ordered metFORMIN 500 mg oral tablet, extended release 1 tablet = 500 mg, By Mouth, Daily in AM, discontinue metformin 500mg with meal, # 30 tablet, 11 Refills, Maintenance, 09/30/22 12:51:00 EST, ER Tablet, [facility] #[id number], 163, cm, 09/30/2310:48:00 EST, Height, 92.8, kg, 09/24/22 22:1... Start Date: 09/30/22 Status: Ordered mirtazapine 15 mg oral tablet 0.5 tablet, By Mouth, Daily at bedtime, DECREASED DOSE, # 45 tablet, 1 Refills, Maintenance, 10/20/22 20:06:00 EST, [facility] #[id number], 163, cm, 10/16/22 16:21:00 EST, Height, 92.8, kg, 09/24/22 22:19:00 EST, Dry Weight Start Date: 10/20/22 Status: Ordered montelukast 10 mg oral tablet 1, tablet, By Mouth, Daily at bedtime, SUPPLY., # 90 tablet, Refills 1, Maintenance, 06/18/22 14:04:00 EDT, Route to Pharmacy Electronically, [facility] #[id number], 165, cm, 06/18/22 13:19:00 EDT, Height, 88.9, kg, 02/09/22 15:14:00 EDT, Dry Weight Start Date: 06/18/22 Stop Date: 09/16/22 Status: Ordered Dsz-dhr-jamcj medical-grade oxford diabetic shoes, depth or hightop Cbr-pzl-zximo medical-grade oxford diabetic shoes, depth or hightop, [...] Refills, Maintenance, 12/18/21 15:48:00 EDT, EC Capsule, [facility] #[id number], 165, cm, 10/29/21 12:16:00 EST,... Start Date: 12/18/21 Status: Ordered pravastatin 80 mg oral tablet 1 tablet, By Mouth, Daily, # 90 tablet, 1 Refills, Maintenance, 06/27/22 12:04:00 EDT, [facility] #[id number], 165, cm, 06/18/22 13:19:00 EDT, Height, 88.9, kg, 02/09/22 15:14:00 EDT, Dry Weight Start Date: 06/27/22 Status: Ordered Premarin Vaginal 0.625 mg/gm cream with applicator See Instructions, APPLY 1/2 GRAM IN THE VAGINA EVERY WEDNESDAY AND WEDNESDAY, # 30 Gm, 11 Refills, Maintenance, 05/11/22 14:58:00 EDT, [facility] #[id number], 30, APPLY 1/2 GRAM IN THE VAGINA EVERY WEDNESDAY AND WEDNESDAY, 165, cm, 02/23/22 14:24:00 EDT,... Start Date: 05/11/22 Status: Ordered ProAir HFA 90 mcg/inh inhalation aerosol with adapter 2, puffs, Inhalation, 4 times a day, PRN, # 1 each, Refills 11, Tot. Refills 11, Maintenance, 10/16/22 17:00:00 EST, Route to Pharmacy Electronically, [id number], [facility] #[id number], 163, cm, 10/16/22 16:21:00 EST, H... Start [...] 4, 5, 6, 7 Confirmed 08/09/06 Active *[phone] Cardroom Worker Francis Caity Confirmed Active Varicose vein Confirmed [...] Team Personnel Name: Haley Gonzalez RN Position: [facility] RN Member Role: Primary Care Nurse Name: Jessica Perrin MD Position: [facility] Primary Care Physician Member Role: PCP Address: Address: [address] [place] [id number]- Care Team Related Persons Name: SANDY BOYCE Address: home [address] [place] [address] Name: CARLI COLT Address: home [address] [place], [place] [id number]
--- OUTSIDE RECORDS SUMMARY | 2024-07-06 12:05 | XMS_ITS | Continuity of Care Document ---
Author Organization [facility] Address [address] [place] [address]- Care Team Providers Care Money Room Teller Name Role Phone Marychuy MCCLAIN, Jessica Primary Care Physician [facility] Date[facility]): 12/29/22 - 01/28/23 [facility] [address]- [place] Allergies, Adverse Reactions, Alerts Substance Reaction [...] Vaccine Date Status Refusal Reason SARS-CoV-2 mRNA (aexyfvi-qgfa-znbjj) vax 02/17/22 Given influenza virus vaccine, inactivated [...] tablet, 11 Refills, Maintenance, 05/13/22 11:27:00 EDT, [facility] #[id number], Partial fill upon cherelle... Start Date: 05/13/22 Status: Ordered albuterol 0.083% inhalation solution 3 mL = 2.5 mg, Inhalation, Every 6 hours, # 25 each, 5 Refills, Maintenance, 08/12/22 15:02:00 EST,[facility] #[id number], 165, cm, 06/18/22 13:19:00 EDT, Height, 88.9, kg, 02/09/22 15:14:00 EDT, Dry Weight Start Date: 08/12/22 Stop Date: 5/29/23 Status: Ordered apixaban 5 mg oral tablet 1 tablet = 5 mg, By Mouth, 2 times a day, # 180 tablet, 0 Refills, Maintenance, 12/16/22 16:34:00 EDT, Tablet, [facility] #[id number], Partial fill upon patient request if the prescription is for a schedule II opioid drug., 163, cm, 12/16/22 7:58... Start Date: 12/16/22 Stop Date: 03/16/23 Status: Ordered budesonide 0.5 mg/2 mL inhalation suspension 0.5 mg, 2, mL, Neb, 2 times a day, # 120 mL, Refills 11, Tot. Refills 11, Maintenance, 10/16/22 16:58:00 EST, Suspension, Route to Pharmacy Electronically, [id number], [facility] #[id number], 163, cm, 10/16/22 16:21:00 E... Start Date: 10/16/22 Status: Ordered budesonide 0.5 mg/2 mL inhalation suspension 0.5 mg, 2, mL, Neb, 2 times a day, # 120 mL, Refills 11, Tot. Refills 11, Maintenance, 08/13/22 15:24:00 EST, Suspension, Route to Pharmacy Electronically, [id number], [facility] #[id number], 165, cm, 06/18/22 13:19:00 E... Start Date: 08/13/22 Status: Ordered calcium (as citrate)-vitamin D 315 mg-250 intl units oral tablet 2 tablet, By Mouth, 2 times a day, # 360 tablet, 0 Refills, Maintenance, 12/07/22 14:46:00 EDT, [facility] #[id number], 90, 2 tablet By Mouth 2 times a day, 163, cm, 11/05/22 16:59:00 EST, Height, 90, kg, 11/05/22 16:59:00 EST, Dry Weight Start Date: 12/07/22 Status: Ordered citalopram 20 mg oral tablet 20 mg, 1, tablet, By Mouth, Daily, # 90 tablet, Refills 3, Tot. Refills 3, Maintenance, 07/08/22 14:31:00 EDT, Route to Pharmacy Electronically, [facility] #[id number], MD is awared of interaction w nicky, 165, cm, 06/18/22 13:19:00 EDT, He... Start Date: 07/08/22 Status: Ordered Clarinex 5 mg oral tablet 1 tablet = 5 mg, By Mouth, Daily, # 90 tablet, 3 Refills, Maintenance, 04/29/22 12:53:00 EDT, Tablet, [facility] #[id number], 165, cm, 02/23/22 14:24:00 EDT, Height, 88.9, [...] 0 Refills, Soft Stop, 10/22/21 10:11:00 EST, [facility] #[id number], 165, cm, 10/22/21 9:05:00 EST, Height, 89.5, kg, 04/23/2121:43:00 EDT, Dry Weight Start Date: 10/22/21 Status: Ordered fluticasone 50 mcg/inh nasal spray See Instructions, SPRAY 2 TIMES IN EACH NOSTRILS EVERY DAY. NEEDED FOR ALLERGY SEASON. WHEN SPRAYING KEEP HEAD DOWN, # 16 Gm, 11 Refills, 02/17/22 13:14:00 EDT, [facility] #[id number], 30, SPRAY 2 TIMES IN EACH NOSTRILS EVERY DAY. NEEDED FO... Start Date: 02/17/22 Status: Ordered formoterol 10 mcg/mL inhalation solution 2 mL = 20 mcg, Inhalation, 2 times a day, using a continuous flow nebulizer, # 120 mL, 11 Refills, Maintenance, 10/16/22 16:58:00 EST, Solution, [facility] #[id number], Partial fill upon patientrequest if the prescription [...] 11/05/22 17:53:00 EST, Route to Pharmacy Electronically, [facility] #[id number], Partial fill upon patient request if the prescription is for a schedule II opi... Start Date: 11/05/22 Stop Date: 11/10/22 Status: Ordered gabapentin 300 mg oral capsule 300 mg, 1, capsule, By Mouth, 2 times a day, PRN, # 20 capsule, Refills 0, Tot. Refills 0, Maintenance, Pain , Severe, 11/05/22 17:53:00 EST, Route to Pharmacy Electronically, [facility] #[id number], Partial fill upon patient request if the presc... Start Date: 11/05/22 Stop Date: 11/15/22 Status: Ordered hydrALAZINE 25 mg oral tablet 25 mg, 1, tablet, By Mouth, 3 times a day, discontinue hydralazine 10mg, # 90 tablet, Refills 11, Tot. Refills 11, Maintenance, 06/18/22 13:56:00 EDT, Route to Pharmacy Electronically, [facility] #[id number], Partial fill upon patient request if... Start [...] tablet, 11 Refills, Maintenance, 09/30/22 12:56:00 EST, [facility] #[id number], 163, cm, 09/30/22 11:48:00 EST, Height, 92.8, kg, 09/24/22 22:19:00 EST, Dry Weight Start Date: 09/30/22 Status: Ordered lisinopril 40 mg oral tablet 1 tablet = 40 mg, By Mouth, 2 times a day, increase dose discontinue HCTZ 12.5mg, # 60 tablet, 11 Refills, Maintenance, 09/30/22 12:54:00 EST, Tablet, [facility] #[id number], 163, cm, 09/30/22 11:48:00 EST, Height, 92.8, kg, 09/24/22 22:19:00... Start Date: 09/30/22 Stop Date: 09/25/23 Status: Ordered Matzim LA 360 mg/24 hours oral tablet, extended release 1 tablet, By Mouth, Daily, # 90 tablet, 3 Refills, 02/17/22 13:08:00 EDT, [facility] #[id number], 165, cm, 02/17/22 12:49:00 EDT, Height, 88.9, kg, 02/09/22 15:14:00 EDT, Dry Weight Start Date: 02/17/22 Status: Ordered metFORMIN 500 mg oral tablet, extended release 1 tablet = 500 mg, By Mouth, Daily in AM, discontinue metformin 500mg with meal, # 30 tablet, 11 Refills, Maintenance, 09/30/22 12:51:00 EST, ER Tablet, [facility] #[id number], 163, cm, 09/30/2310:48:00 EST, Height, 92.8, kg, 09/24/22 22:1... Start Date: 09/30/22 Status: Ordered mirtazapine 15 mg oral tablet 0.5 tablet, By Mouth, Daily at bedtime, DECREASED DOSE, # 45 tablet, 1 Refills, Maintenance, 10/20/22 20:06:00 EST, [facility] #[id number], 163, cm, 10/16/22 16:21:00 EST, Height, 92.8, kg, 09/24/22 22:19:00 EST, Dry Weight Start Date: 10/20/22 Status: Ordered montelukast 10 mg oral tablet 1, tablet, By Mouth, Daily at bedtime, SUPPLY., # 90 tablet, Refills 1, Tot. Refills 1, Maintenance, 12/07/22 14:50:00 EDT, Route to Pharmacy Electronically, [facility] #[id number], 163, cm, 11/05/22 16:59:00 EST, Height, 90, kg, 11/05/22 16:59:0... Start Date: 12/07/22 Stop Date: 06/05/23 Status: Ordered Qrw-mnb-wntrn medical-grade oxford diabetic shoes, depth or hightop Bwt-mij-salpn medical-grade oxford diabetic shoes, depth or hightop, [...] Refills, Maintenance, 12/07/22 14:49:00 EDT, EC Capsule, [facility] #[id number], 163, cm, 11/05/22 16:59:00 EST,... Start Date: 12/07/22 Status: Ordered pravastatin 80 mg oral tablet 1 tablet, By Mouth, Daily, # 90 tablet, 1 Refills, Maintenance, 12/07/22 14:47:00 EDT, [facility] #[id number], 163, cm, 11/05/22 16:59:00 EST, Height, 90, kg, 11/05/22 16:59:00 EST, Dry Weight Start Date: 12/07/22 Status: Ordered Premarin Vaginal 0.625 mg/gm cream with applicator See Instructions, APPLY 1/2 GRAM IN THE VAGINA EVERY WEDNESDAY AND WEDNESDAY, # 30 Gm, 11 Refills, Maintenance, 05/11/22 14:58:00 EDT, [facility] #[id number], 30, APPLY 1/2 GRAM IN THE VAGINA EVERY WEDNESDAY AND WEDNESDAY, 165, cm, 02/23/22 14:24:00 EDT,... Start Date: 05/11/22 Status: Ordered ProAir HFA 90 mcg/inh inhalation aerosol with adapter 2, puffs, Inhalation, 4 times a day, PRN, # 1 each, Refills 11, Tot. Refills 11, Maintenance, 10/16/22 17:00:00 EST, Route to Pharmacy Electronically, [id number], [facility] #[id number], 163, cm, 10/16/22 16:21:00 EST, H... Start [...] day, PRN itching Apply to lower extremities Peruvian, # 30 Gm, 0Refills, Maintenance, 01/07/23 14:27:00 EDT, [facility], Partial fill upon patient request if the [...] 4, 5, 6, 7 Confirmed 08/09/06 Active *[phone] Contact Officer Francis Malinarnacion Confirmed Active Severe obesity (BMI [...] Team Personnel Name: Carlos PAREDES, Haley Position: [facility] RN Member Role: Primary Care Nurse Name: Jessica Perrin MD Position: [facility] Primary Care Physician Member Role: PCP Address: Address: [address] [place] [address]- Care Team Related Persons Name: SANDY BOYCE Address: home [address] [place] [address] Name: COLT BOYCE Address: home [address] [place] [address]
--- OUTSIDE RECORDS SUMMARY | 2024-07-06 12:05 | XMS_ITS | Continuity of Care Document ---
Author Organization [facility] Address [address] [place] [address]- Care Team Providers Care Cone Winder Name Role Phone Marychuy MCCLAIN, Jessica Primary Care Physician [facility]): 11[facility]23 - 12/04/23 [facility] [address] [place], [place] [address] Allergies, Adverse Reactions, Alerts Substance Reaction Severity [...] virus vaccine, inactivated 5 07/29/06 Gi javon [id number]-[id number] 12y+ bivalent booster vax 7/12/23 Given XFIM-WsU-0wLFJ 12y+ bivalent booster vax 07/28/22 Recorded SARS-CoV-2 mRNA (jvqclnn-zfeg-cbtvl) vax 02/17/22 Given SARS-CoV-2 (COVID-19) mRNA BNT-162b2 [...] tablet, 11 Refills, Maintenance, 03/24/23 10:28:00 EDT, [facility] #[id number], 160, cm, 03/24/23 10:19:00 EDT, Height, 89.54, kg, 0... Start Date: 03/24/23 Status: Ordered albuterol 0.083% inhalation solution 3 mL = 2.5 mg, Inhalation, Every 6 hours, # 25 each, 5 Refills, Maintenance, 08/12/22 15:02:00 EST,[facility] #[id number], 165, cm, 06/18/22 13:19:00 EDT, Height, 88.9, [...] Maintenance, 11/25/23 10:58:00 EDT, Route toPharmacy Electronically, [id number], [facility] #[id number], 160, cm, 03/24/23 10:19:00 EDT, Height, 89.54, kg, 02/09/23... Start Date: 11/25/23 Status: Ordered calcium (as citrate)-vitamin D 315 mg-250 intl units oral tablet 2 tablet, By Mouth, 2 times a day, # 360 tablet, 3 Refills, Maintenance, 03/24/23 10:33:00 EDT, [facility] #[id number], 2 tablet By Mouth 2 times a day,x90 days, 160, cm, 03/24/23 10:19:00 EDT, Height, 89.54, kg, 02/09/23 16:45:00 EDT, Dry Weight Start Date: 03/24/23 Stop Date: 03/18/24 Status: Ordered ciclopirox 8% topical solution 1 application, Topically, Daily, as directed to affected area toenails, # 6.6 mL, 11 Refills, Maintenance, 03/24/23 10:42:00 EDT, Solution, [facility] #[id number], ., 1 application Topically Daily,Instr:as directed; to affected area toenails, 16... Start Date: 03/24/23 Status: Ordered citalopram 20 mg oral tablet 20 mg, 1, tablet, By Mouth, Daily, # 90 tablet, Refills 3, Tot. Refills 3, Maintenance, 03/24/23 10:23:00 EDT, Route to Pharmacy Electronically, [facility] #[id number] is awared of interaction w [email or web address], 160, cm, 03/24/23 10:19:00 EDT, He... Start Date: 03/24/23 Status: Ordered Clarinex 5 mg oral tablet 1 tablet = 5 mg, By Mouth, Daily, # 90 tablet, 3 Refills, Maintenance, 03/24/23 10:23:00 EDT, Tablet, [facility] #[id number], 160, cm, 03/24/23 10:19:00 EDT, Height, 89.54, [...] tablet, 3 Refills, Maintenance, 03/24/23 10:04:00 EDT, [facility] #[id number], 160, cm, 03/24/23 9:26:00 EDT, Height, 89.54, kg, 02/09/23 16:45:00 EDT, Dry Weight Start Date: 03/24/23 Status: Ordered EPINEPHrine 0.3 mg injectable solution = 0.3 mg, Intramuscular, Once, PRN Anaphylactic Reaction, # 1 each, 0 Refills, Soft Stop, 10/22/21 10:11:00 EST, [facility] #[id number], 165, cm, 10/22/21 9:05:00 EST, Height, 89.5, kg, 04/23/2121:43:00 EDT, Dry Weight Start Date: 10/22/21 Status: Ordered fluticasone 50 mcg/inh nasal spray 2 sprays, Nares, Both, Daily, Use every day during allergy season. While using spray keep head down., # 3 each, 3 Refills, Maintenance, 03/24/23 10:28:00 EDT, [facility] #[id number], ., 2 spraysNares, Both Daily,x90 days,Instr:Use every day duri... Start Date: 03/24/23 Stop Date: 03/18/24 Status: Ordered formoterol 10 mcg/mL inhalation solution See Instructions, USE 2 ML VIA NEBULIZER TWICE DAILY USING A CONTINUOUS FLOW VIA NEBULIZER, # 120 mL, 0 Refills, Maintenance, 11/16/23 9:56:00 [facility], [facility] #[id number], 160, cm, 03/24/23 10:19:00 EDT, Height, 89.54, [...] tablet, 3 Refills, Maintenance, 03/24/23 10:31:00 EDT, [facility] #[id number], 160, cm, 03/24/23 10:19:00 EDT, Height, 89.54, kg, 02/09/23 16:45:00 EDT, Dry Weight Start Date: 03/24/23 Stop Date: 03/18/24 Status: Ordered lisinopril 40 mg oral tablet 1 tablet = 40 mg, By Mouth, Daily in AM, 11 AM Decreased dose, # 90 tablet, 3 Refills, Maintenance,03/24/23 10:12:00 EDT, Tablet, [facility] #[id number], 160, cm, 03/24/23 9:26:00 EDT, Height, 89.54, kg, 02/09/23 16:45:00 EDT, Dry Weight Start Date: 03/24/23 Stop Date: 03/18/24 Status: Ordered Matzim LA 180 mg/24 hours oral tablet, extended release 1 tablet = 180 mg, By Mouth, Daily in AM, Discontinue diltiazem 360 mg Takes at 11 AM, # 90 tablet,3 Refills, Maintenance, 03/24/23 9:58:00 EDT, ER Tablet, [facility] #[id number], 160, cm, 03/24/23 9:26:00 EDT, Height, 89.54, kg, 02/09/23 16:45... Start Date: 03/24/23 Stop Date: 03/18/24 Status: Ordered metFORMIN 500 mg oral tablet, extended release 1 tablet = 500 mg, By Mouth, 2 times a day, with meal Increase dose, # 180 tablet, 3 Refills, Maintenance, 03/24/23 10:19:00 EDT, ER Tablet, [facility] #[id number], 160, cm, 03/24/23 10:19:00 EDT, Height, 89.54, kg, 02/09/23 16:45:00 EDT, Dry W... Start Date: 03/24/23 Stop Date: 03/18/24 Status: Ordered mirtazapine 15 mg oral tablet 0.5 tablet, By Mouth, Daily at bedtime, # 45 tablet, 3 Refills, Maintenance, 03/24/23 10:22:00 EDT,[facility] #[id number], 160, cm, 03/24/23 10:19:00 EDT, Height, 89.54, kg, 02/09/23 16:45:00 EDT, Dry Weight Start Date: 03/24/23 Stop Date: 03/18/24 Status: Ordered montelukast 10 mg oral tablet 1, tablet, By Mouth, Daily at bedtime, SUPPLY., # 90 tablet, Refills 3, Tot. Refills 3, Maintenance, 06/05/23 14:50:00 EDT, Route to Pharmacy Electronically, [facility] #[id number], 160, cm, 03/24/23 10:19:00 EDT, Height, 89.54, kg, 02/09/23 16:4... Start Date: 06/05/23 Status: Ordered Oxy-fxj-qilbl medical-grade oxford diabetic shoes, depth or hightop Lwg-tph-ewqbe medical-grade oxford diabetic shoes, depth or hightop, [...] capsule, 3 Refills, Maintenance, 03/24/23 10:28:00 EDT, [facility] #[id number], 160, cm, 03/24/23 10:19:00 EDT, Height, 89.54, kg, 0... Start Date: 03/24/23 Stop Date: 03/18/24 Status: Ordered pravastatin 80 mg oral tablet 1 tablet, By Mouth, Daily, # 90 tablet, 3 Refills, Maintenance, 03/24/23 10:32:00 EDT, [facility] #[id number], 160, cm, 03/24/23 10:19:00 EDT, Height, 89.54, kg, 02/09/23 16:45:00 EDT, Dry Weight Start Date: 03/24/23 Stop Date: 03/18/24 Status: Ordered Premarin Vaginal 0.625 mg/gm cream with applicator See Instructions, APPLY 1/2 GRAM IN THE VAGINA EVERY WEDNESDAY AND WEDNESDAY, # 30 Gm, 11 Refills, Maintenance, 03/24/23 10:23:00 EDT, [facility] #66827, 30, APPLY 1/2 GRAM IN THE VAGINA EVERY WEDNESDAY AND WEDNESDAY, 160, cm, 03/24/23 10:19:00 EDT,... Start Date: 03/24/23 Status: Ordered ProAir HFA 90 mcg/inh inhalation aerosol with adapter 2, puffs, Inhalation, 4 times a day, PRN, Fill when patient request it, # 1 each, Refills 5, Tot. Refills 5, Maintenance, 03/24/23 10:30:00 EDT, Route to Pharmacy Electronically, [id number], [facility] #[id number], 160,... Start Date: 03/24/23 Status: Ordered Shoes [...] in AM, at 11 AM Given by hat forming machine operator, Dr. Indio Mason, # 30 [...] day, PRN itching Apply to lower extremities Romanian, # 30 Gm, 2Refills, Maintenance, 03/24/23 10:34:00 EDT, [id number], 1 application Topically 3times a day,Instr:PRN itching [...] 5, 6, 7, 8 Confirmed 08/09/06 Active *[id number] Wheat Grower Michelle Cain Confirmed Active Varicose vein Confirmed [...] Team Personnel Name: Haley Gonzalez RN Position: [facility] RN Member Role: Primary Care Nurse Name: Jessica Perrin MD Position: [facility] Physician - Primary Care Member Role: PCP Address: Address: [address] [place] [address]- Care Team Related Persons Name: SANDY BOYCE Address: home [address] [place] [address] Name: COLT BOYCE Address: home [address] [place] [address]
--- OUTSIDE RECORDS SUMMARY | 2024-07-06 12:05 | XMS_ITS | Continuity of Care Document ---
Author Organization [facility] Address [address] [place] [address]- Care Team Providers Care [employer] Name Role Phone Marychuy MCCLAIN, Jessica Primary Care Physician [facility]counter [facility] Date(s): 12/21/22 - 01/20/23 [facility]/[place] [address]- [place] Allergies, Adverse Reactions, Alerts Substance Reaction [...] Vaccine Date Status Refusal Reason SARS-CoV-2 mRNA ([id number]) vax 02/17/22 Given influenza virus vaccine, inactivated [...] tablet, 11 Refills, Maintenance, 05/13/22 11:27:00 EDT, [facility] #[id number], Partial fill upon cherelle... Start Date: 05/13/22 Status: Ordered albuterol 0.083% inhalation solution 3 mL = 2.5 mg, Inhalation, Every 6 hours, # 25 each, 5 Refills, Maintenance, 08/12/22 15:02:00 EST,[facility] #[id number], 165, cm, 06/18/22 13:19:00 EDT, Height, 88.9, kg, 02/09/22 15:14:00 EDT, Dry Weight Start Date: 08/12/22 Stop Date: 5/29/23 Status: Ordered apixaban 5 mg oral tablet 1 tablet = 5 mg, By Mouth, 2 times a day, # 180 tablet, 0 Refills, Maintenance, 12/16/22 16:34:00 EDT, Tablet, [facility] #[id number], Partial fill upon patient request if the prescription is for a schedule II opioid drug., 163, cm, 12/16/22 7:58... Start Date: 12/16/22 Stop Date: 03/16/23 Status: Ordered budesonide 0.5 mg/2 mL inhalation suspension 0.5 mg, 2, mL, Neb, 2 times a day, # 120 mL, Refills 11, Tot. Refills 11, Maintenance, 10/16/22 16:58:00 EST, Suspension, Route to Pharmacy Electronically, [id number], [facility] #[id number], 163, cm, 10/16/22 16:21:00 E... Start Date: 10/16/22 Status: Ordered budesonide 0.5 mg/2 mL inhalation suspension 0.5 mg, 2, mL, Neb, 2 times a day, # 120 mL, Refills 11, Tot. Refills 11, Maintenance, 08/13/22 15:24:00 EST, Suspension, Route to Pharmacy Electronically, [id number], [facility] #[id number], 165, cm, 06/18/22 13:19:00 E... Start Date: 08/13/22 Status: Ordered calcium (as citrate)-vitamin D 315 mg-250 intl units oral tablet 2 tablet, By Mouth, 2 times a day, # 360 tablet, 0 Refills, Maintenance, 12/07/22 14:46:00 EDT, [facility] #[id number], 90, 2 tablet By Mouth 2 times a day, 163, cm, 11/05/22 16:59:00 EST, Height, 90, kg, 11/05/22 16:59:00 EST, Dry Weight Start Date: 12/07/22 Status: Ordered citalopram 20 mg oral tablet 20 mg, 1, tablet, By Mouth, Daily, # 90 tablet, Refills 3, Tot. Refills 3, Maintenance, 07/08/22 14:31:00 EDT, Route to Pharmacy Electronically, [facility] #[id number], MD is awared of interaction w nicky, 165, cm, 06/18/22 13:19:00 EDT, He... Start Date: 07/08/22 Status: Ordered Clarinex 5 mg oral tablet 1 tablet = 5 mg, By Mouth, Daily, # 90 tablet, 3 Refills, Maintenance, 04/29/22 12:53:00 EDT, Tablet, [facility] #[id number], 165, cm, 02/23/22 14:24:00 EDT, Height, 88.9, [...] 0 Refills, Soft Stop, 10/22/21 10:11:00 EST, [facility] #[id number], 165, cm, 10/22/21 9:05:00 EST, Height, 89.5, kg, 04/23/2121:43:00 EDT, Dry Weight Start Date: 10/22/21 Status: Ordered fluticasone 50 mcg/inh nasal spray See Instructions, SPRAY 2 TIMES IN EACH NOSTRILS EVERY DAY. NEEDED FOR ALLERGY SEASON. WHEN SPRAYING KEEP HEAD DOWN, # 16 Gm, 11 Refills, 02/17/22 13:14:00 EDT, [facility] #[id number], 30, SPRAY 2 TIMES IN EACH NOSTRILS EVERY DAY. NEEDED FO... Start Date: 02/17/22 Status: Ordered formoterol 10 mcg/mL inhalation solution 2 mL = 20 mcg, Inhalation, 2 times a day, using a continuous flow nebulizer, # 120 mL, 11 Refills, Maintenance, 10/16/22 16:58:00 EST, Solution, [facility] #[id number], Partial fill upon patientrequest if the prescription [...] 11/05/22 17:53:00 EST, Route to Pharmacy Electronically, [facility] #[id number], Partial fill upon patient request if the prescription is for a schedule II opi... Start Date: 11/05/22 Stop Date: 11/10/22 Status: Ordered gabapentin 300 mg oral capsule 300 mg, 1, capsule, By Mouth, 2 times a day, PRN, # 20 capsule, Refills 0, Tot. Refills 0, Maintenance, Pain , Severe, 11/05/22 17:53:00 EST, Route to Pharmacy Electronically, [facility] #[id number], Partial fill upon patient request if the presc... Start Date: 11/05/22 Stop Date: 11/15/22 Status: Ordered hydrALAZINE 25 mg oral tablet 25 mg, 1, tablet, By Mouth, 3 times a day, discontinue hydralazine 10mg, # 90 tablet, Refills 11, Tot. Refills 11, Maintenance, 06/18/22 13:56:00 EDT, Route to Pharmacy Electronically, [facility] #[id number], Partial fill upon patient request if... Start [...] tablet, 11 Refills, Maintenance, 09/30/22 12:56:00 EST, [facility] #[id number], 163, cm, 09/30/22 11:48:00 EST, Height, 92.8, kg, 09/24/22 22:19:00 EST, Dry Weight Start Date: 09/30/22 Status: Ordered lisinopril 40 mg oral tablet 1 tablet = 40 mg, By Mouth, 2 times a day, increase dose discontinue HCTZ 12.5mg, # 60 tablet, 11 Refills, Maintenance, 09/30/22 12:54:00 EST, Tablet, [facility] #[id number], 163, cm, 09/30/22 11:48:00 EST, Height, 92.8, kg, 09/24/22 22:19:00... Start Date: 09/30/22 Stop Date: 09/25/23 Status: Ordered Matzim LA 360 mg/24 hours oral tablet, extended release 1 tablet, By Mouth, Daily, # 90 tablet, 3 Refills, 02/17/22 13:08:00 EDT, [facility] #[id number], 165, cm, 02/17/22 12:49:00 EDT, Height, 88.9, kg, 02/09/22 15:14:00 EDT, Dry Weight Start Date: 02/17/22 Status: Ordered metFORMIN 500 mg oral tablet, extended release 1 tablet = 500 mg, By Mouth, Daily in AM, discontinue metformin 500mg with meal, # 30 tablet, 11 Refills, Maintenance, 09/30/22 12:51:00 EST, ER Tablet, [facility] #[id number], 163, cm, 09/30/2310:48:00 EST, Height, 92.8, kg, 09/24/22 22:1... Start Date: 09/30/22 Status: Ordered mirtazapine 15 mg oral tablet 0.5 tablet, By Mouth, Daily at bedtime, DECREASED DOSE, # 45 tablet, 1 Refills, Maintenance, 10/20/22 20:06:00 EST, [facility] #[id number], 163, cm, 10/16/22 16:21:00 EST, Height, 92.8, kg, 09/24/22 22:19:00 EST, Dry Weight Start Date: 10/20/22 Status: Ordered montelukast 10 mg oral tablet 1, tablet, By Mouth, Daily at bedtime, SUPPLY., # 90 tablet, Refills 1, Tot. Refills 1, Maintenance, 12/07/22 14:50:00 EDT, Route to Pharmacy Electronically, [facility] #[id number], 163, cm, 11/05/22 16:59:00 EST, Height, 90, kg, 11/05/22 16:59:0... Start Date: 12/07/22 Stop Date: 06/05/23 Status: Ordered Jan-zrw-uhwki medical-grade oxford diabetic shoes, depth or hightop Fpo-xjc-lpjgm medical-grade oxford diabetic shoes, depth or hightop, [...] Refills, Maintenance, 12/07/22 14:49:00 EDT, EC Capsule, [facility] #[id number], 163, cm, 11/05/22 16:59:00 EST,... Start Date: 12/07/22 Status: Ordered pravastatin 80 mg oral tablet 1 tablet, By Mouth, Daily, # 90 tablet, 1 Refills, Maintenance, 12/07/22 14:47:00 EDT, [facility] #[id number], 163, cm, 11/05/22 16:59:00 EST, Height, 90, kg, 11/05/22 16:59:00 EST, Dry Weight Start Date: 12/07/22 Status: Ordered Premarin Vaginal 0.625 mg/gm cream with applicator See Instructions, APPLY 1/2 GRAM IN THE VAGINA EVERY WEDNESDAY AND WEDNESDAY, # 30 Gm, 11 Refills, Maintenance, 05/11/22 14:58:00 EDT, [facility] #[id number], 30, APPLY 1/2 GRAM IN THE VAGINA EVERY WEDNESDAY AND WEDNESDAY, 165, cm, 02/23/22 14:24:00 EDT,... Start Date: 05/11/22 Status: Ordered ProAir HFA 90 mcg/inh inhalation aerosol with adapter 2, puffs, Inhalation, 4 times a day, PRN, # 1 each, Refills 11, Tot. Refills 11, Maintenance, 10/16/22 17:00:00 EST, Route to Pharmacy Electronically, [id number], [facility] #[id number], 163, cm, 10/16/22 16:21:00 EST, H... 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
--- OUTSIDE RECORDS SUMMARY | 2024-07-06 12:05 | XMS_ITS | Continuity of Care Document ---
Author Organization [facility] Address [address] [place] [id number]- Care Team Providers Care Newswriter Name Role Phone Marychuy MCCLAIN, Jessica Primary Care Physician [facility] Date[facility]s): 02[facility]11/22 - 03/27/22 [facility] [address] [facility] [address] [place] [id number] Attending Physician: Clay Mathias II, MD Admitting Physician: Clay Mathias II, MD Referring Physician: Jessica Perrin MD Allergies, [...] Vaccine Date Status Refusal Reason SARS-CoV-2 mRNA ([id number]) vax 02/17/22 Given influenza virus vaccine, inactivated [...] 25 each, 2 Refills, Maintenance, 02/04/22 14:43:00 EDT,[facility] #[id number], 165, cm, 10/29/21 12:16:00 EST, Height, 89.5, kg, 04/23/21 21:43:00 EDT, Dry Weight Start Date: 02/04/22 Stop Date: 05/05/22 Status: Ordered budesonide 0.5 mg/2 mL inhalation suspension 0.5 mg, 2, mL, Neb, 2 times a day, # 120 mL, Refills 5, Tot. Refills 5, Maintenance, 02/11/22 14:27:00 EDT, Suspension, Route to Pharmacy Electronically, [id number], [facility] #[id number], 165, cm, 02/09/22 15:14:00 EDT... Start Date: 02/11/22 Status: Ordered calcium (as citrate)-vitamin D 315 mg-250 intl units oral tablet 2 tablet, By Mouth, 2 times a day, Tej, # 360 tablet, 3 Refills, Maintenance, 03/26/21 13:03:00 EDT, Tablet, [facility] #[id number], 2 tablet By Mouth 2 times a day,x90 days,Instr:Tej, 165, cm, 03/26/21 11:57:00 EDT, Height, 88, kg, 11/03/19 18... Start Date: 03/26/21 Stop Date: 03/21/22 Status: Ordered celecoxib 100 mg oral capsule 1 capsule = 100 mg, By Mouth, 2 times a day, PRN knee pain, # 60 capsule, 5 Refills, Maintenance, 10/22/21 10:44:00 EST, Capsule, [facility] #[id number], 165, cm, 10/22/21 9:05:00 EST, Height, 89.5, kg, 04/23/21 21:43:00 EDT, Dry Weight Start Date: 10/22/21 Status: Ordered citalopram 20 mg oral tablet 20 mg, 1, tablet, By Mouth, Daily, # 90 tablet, Refills 3, Tot. Refills 3, Maintenance, 07/12/21 18:12:00 EDT, Route to Pharmacy Electronically, [facility] #[id number] is awared of interaction w nicky, 165, cm, 04/23/21 21:43:00 EDT, He... Start Date: 10/30/21 Status: Ordered Clarinex 5 mg oral tablet 1 tablet = 5 mg, By Mouth, Daily, # 90 tablet, 3 Refills, Maintenance, 02/17/22 13:13:00 EDT, Tablet, [facility] #[id number], 165, cm, 02/17/22 12:49:00 EDT, Height, 88.9, kg, 02/09/22 15:14:00 EDT, Dry Weight Start Date: 02/17/22 Status: Ordered EPINEPHrine 0.3 mg injectable solution = 0.3 mg, Intramuscular, Once, PRN Anaphylactic Reaction, # 1 each, 0 Refills, Soft Stop, 10/22/21 10:11:00 EST, [facility] #[id number], 165, cm, 10/22/21 9:05:00 EST, Height, 89.5, kg, 04/23/2121:43:00 EDT, Dry Weight Start Date: 10/22/21 Status: Ordered fluticasone 50 mcg/inh nasal spray See Instructions, SPRAY 2 TIMES IN EACH NOSTRILS EVERY DAY. NEEDED FOR ALLERGY SEASON. WHEN SPRAYING KEEP HEAD DOWN, # 16 Gm, 11 Refills, 02/17/22 13:14:00 EDT, [facility] #[id number], 30, SPRAY 2 TIMES IN EACH NOSTRILS EVERY DAY. NEEDED FO... Start Date: 02/17/22 Status: Ordered formoterol 10 mcg/mL inhalation solution 2 mL = 20 mcg, Inhalation, 2 times a day, using a continuous flow nebulizer, # 60 each, 5 Refills, Maintenance, 02/11/22 14:28:00 EDT, Solution, [facility] #[id number], 165, cm, 02/09/22 15:14:00 EDT, Height, 88.9, kg, 02/09/22 15:14:00 EDT, Dry... Start Date: 02/11/22 Status: Ordered hydrALAZINE 10 mg oral tablet 1, tablet, By Mouth, 3 times a day, Increase dose, # 90 tablet, Refills 11, Tot. Refills 11, 10/22/21 10:40:00 EST, Route to Pharmacy Electronically, [facility] #[id number], 165, cm, 10/22/21 9:05:00 EST, Height, 89.5, kg, 04/23/21 21:43:00 EDT,... Start Date: 10/22/21 Status: Ordered hydrochlorothiazide 12.5 mg oral tablet 1 tablet = 12.5 mg, By Mouth, Daily, discontinue HCTZ/lisinopril 25mg /20mg, # 30 tablet, 11 Refills, Maintenance, 10/29/21 13:48:00 EST, Tablet, [facility] #[id number], 165, cm, 10/29/21 12:16:00 EST, Height, 89.5, kg, 04/23/21 21:43:00 EDT, .. Start Date: 10/29/21 Status: Ordered levothyroxine 0.05 mg oral tablet 1 tablet, By Mouth, Daily, # 90 tablet, 1 Refills, [facility] #[id number], 165, cm, 10/29/21 12:16:00 EST, Height, 89.5, kg, 04/23/21 21:43:00 EDT, Dry Weight Start Date: 11/20/21 Status: Ordered lisinopril 40 mg oral tablet 1 tablet = 40 mg, By Mouth, Daily, discontinue HCTZ/lisinopril 25mg /20mg, # 30 tablet, 11 Refills,Maintenance, 10/29/21 13:47:00 EST, Tablet, [facility] #[id number], Partial fill upon patient request if the prescription is for a schedule II op... Start Date: 10/29/21 Status: Ordered Matzim LA 360 mg/24 hours oral tablet, extended release 1 tablet, By Mouth, Daily, # 90 tablet, 3 Refills, 02/17/22 13:08:00 EDT, [facility] #[id number], 165, cm, 02/17/22 12:49:00 EDT, Height, 88.9, kg, 02/09/22 15:14:00 EDT, Dry Weight Start Date: 02/17/22 Status: Ordered metFORMIN 500 mg oral tablet 1 tablet, By Mouth, 2 times a day, # 180 tablet, 3 Refills, Maintenance, 10/13/21 14:33:00 EST, [facility] #[id number], 165, cm, 04/23/21 21:43:00 EDT, Height, 89.5, [...] Refills, Maintenance, 12/18/21 15:48:00 EDT, EC Capsule, [facility] #[id number], 165, cm, 10/29/21 12:16:00 EST,... Start Date: 12/18/21 Status: Ordered pravastatin 80 mg oral tablet 1 tablet, By Mouth, Daily, # 90 tablet, 1 Refills, Maintenance, 01/05/22 10:39:00 EDT, [facility] #[id number], 165, cm, 10/29/21 12:16:00 EST, Height, 89.5, kg, 04/23/21 21:43:00 EDT, Dry Weight Start Date: 01/05/22 Status: Ordered Premarin Vaginal 0.625 mg/gm cream with applicator = 0.5 Gm, Vaginally, Every Wednesday and , # 42.5 Gm, 11 Refills, Maintenance, 03/26/21 13:01:00 EDT, [facility] #[id number], 0.5 Gm Vaginally Every Wednesday and , 165, cm, 03/26/21 11:57:00 EDT, Height, 88, kg, 11/03/19 18:19:00 EST,... Start Date: 03/26/21 Status: Ordered Remeron 15 mg oral tablet 0.5 tablet = 7.5 mg, By Mouth, Daily at bedtime, Decreased dose, # 45 tablet, 3 Refills, Maintenance, 03/26/21 13:13:00 EDT, Tablet, [facility] #[id number], 165, cm, 03/26/21 11:57:00 EDT, Height, 88, kg, 11/03/19 18:19:00 EST, Dry Weight Start Date: 03/26/21 Stop Date: 03/21/22 Status: Ordered Singulair 10 mg oral tablet 10 mg, 1, tablet, By Mouth, Daily at bedtime, 90 days supply, # 90 tablet, Refills 1, Tot. Refills 1, Maintenance, 12/16/21 10:05:00 EDT, Route to Pharmacy Electronically, [facility] #[id number], 165, cm, 10/29/21 12:16:00 EST, Height, 89.5, [...] 3, 4, 5, 6, 7 08/09/06 Active *[phone] Care Partn jb Cabrera(Confirmed) Active Varicose vein(Confirmed) Active 1Mild obstructive [...]
--- OUTSIDE RECORDS SUMMARY | 2024-07-06 12:06 | XMS_ITS | Continuity of Care Document ---
Author Organization [facility] Address [address] [place] [id number]- Care Team Providers Care Drugless Physician Name Role Phone Marychuy MCCLAIN, Jessica Primary Care Physician Encounter [facility] Date(s): 12/21/23 - 01/20/24 [facility]/[address] [address]- Allergies, Adverse Reactions, Alerts Substance Reaction Severity [...] virus vaccine, inactivated 5 07/29/06 Gi javon [id number] 12y+ bivalent booster vax 03/24/23 Given [id number] 12y+ bivalent booster vax 07/28/22 Recorded SARS-CoV-2 mRNA (roulufq-itqs-yjtab) vax 02/17/22 Given SARS-CoV-2 (COVID-19) mRNA BNT-162b2 [...] Refills, Maintenance, 01/19/24 8:32:00 EDT, ER Tablet, [facility] #[id number], Partial fill upon patient request if th... Start Date: 01/19/24 Status: Ordered Albuterol (Eqv-ProAir HFA) 90 mcg/inh inhalation aerosol 2 puffs, Inhalation, Every 6 hours, PRN Wheezing/Shortness of Breath, # 8.5 Gm, 5 Refills, Maintenance, 01/19/24 8:30:00 EDT, [facility] #[id number], If pump is not covered, it can [...] 01/19/24 8:40:00 EDT, Route to Pharmacy Electronically, [id number], [facility] #[id number], 165, cm, 01/19/24 7:55:00 EDT, Height, 85.... Start Date: 01/19/24 Status: Ordered calcium (as citrate)-vitamin D 315 mg-250 intl units oral tablet 2 tablet, By Mouth, 2 times a day, # 360 tablet, 3 Refills, Maintenance, 03/18/24 10:33:00 EDT, [facility] #[id number], 2 tablet By Mouth 2 times a [...] Stop 03/18/24 10:33:00 EDT, 03/24/23 10:33:00 EDT, [facility] #[id number], 160, cm, 03/24/23 10:19:00 EDT, Height, 89.54, kg, 02/09/23 16:45:00 EDT, Dry Weight Start Date: 03/24/23 Stop Date: 03/18/24 Status: Ordered ciclopirox 8% topical solution 1 application, Topically, Daily, as directed to affected area toenails, # 6.6 mL, 11 Refills, Maintenance, 01/19/24 9:20:00 EDT, Solution, [facility] #[id number], ., 1 application Topically Daily,Instr:as directed; to affected area toenails, 165... Start Date: 01/19/24 Status: Ordered Clarinex 5 mg oral tablet 1 tablet = 5 mg, By Mouth, Daily, # 90 tablet, 3 Refills, Maintenance, 03/18/24 10:23:00 EDT, Tablet, [facility] #[id number], 165, cm, 01/19/24 7:55:00 EDT, Height, 85.45, kg, 12/23/23 9:04:00 EDT, Dry Weight Start Date: 03/18/24 Stop Date: 03/13/25 Status: Ordered Clarinex 5 mg oral tablet 1 tablet = 5 mg, By Mouth, Daily, for 90 days, # 90 tablet, 3 Refills, Hard Stop 03/18/24 10:23:00 EDT, 03/24/23 10:23:00 EDT, Tablet, [facility] #[id number], 160, cm, 03/24/23 10:19:00 EDT, Height, 89.54, [...] 11 Refills, Maintenance, 01/19/24 8:42:00 EDT, Gel, [facility] #[id number], ., 165, cm, 01/19/24 7:55:00 EDT, Height, 85.45, kg, 12/23/23 9:04:00 EDT,Dry Weight Start Date: 01/19/24 Stop Date: 07/05/24 Status: Ordered Eliquis 5 mg oral tablet 1 tablet, By Mouth, 2 times a day, # 180 tablet, 3 Refills, Maintenance, 01/19/24 9:20:00 EDT, [facility] #[id number], 165, cm, 01/19/24 7:55:00 EDT, Height, 85.45, kg, 12/23/23 9:04:00 EDT, DryWeight Start Date: 01/19/24 Status: Ordered EPINEPHrine 0.3 mg injectable solution = 0.3 mg, Intramuscular, Once, PRN Anaphylactic Reaction, # 1 each, 0 Refills, Soft Stop, 10/22/21 10:11:00 EST, [facility] #[id number], 165, cm, 10/22/21 9:05:00 EST, Height, 89.5, kg, 04/23/2121:43:00 EDT, Dry Weight Start Date: 10/22/21 Status: Ordered escitalopram 10 mg oral tablet 1 tablet = 10 mg, By Mouth, Daily, discontinue citalopram, # 30 tablet, 11 Refills, Maintenance, 01/19/24 8:34:00 EDT, Tablet, [facility] #[id number], Partial fill upon patient request if the prescription is for a schedule II opioid drug., 165, c... Start Date: 01/19/24 Status: Ordered fluticasone 50 mcg/inh nasal spray 2 sprays, Nares, Both, Daily, Use every day during allergy season. While using spray keep head down., # 3 each, 3 Refills, Maintenance, 03/18/24 10:28:00 EDT, [facility] #[id number], ., 2 spraysNares, Both Daily,x90 days,Instr:Use every day duri... Start Date: 03/18/24 Stop Date: 03/13/25 Status: Ordered formoterol 10 mcg/mL inhalation solution See Instructions, USE 2 ML VIA NEBULIZER TWICE DAILY USING A CONTINUOUS FLOW VIA NEBULIZER, # 120 mL, 11 Refills, Maintenance, 01/19/24 8:40:00 EDT, [facility] #[id number], 165, cm, 01/19/24 7:55:00 EDT, Height, 85.45, [...] tablet, 3 Refills, Maintenance, 03/18/24 10:31:00 EDT, [facility] #[id number], 165, cm, 01/19/24 7:55:00 EDT, Height, 85.45, kg, 12/23/23 9:04:00 EDT, Dry Weight Start Date: 03/18/24 Stop Date: 03/13/25 Status: Ordered levothyroxine 0.05 mg oral tablet 1 tablet, By Mouth, Daily, for 90 days, # 90 tablet, 3 Refills, Hard Stop 03/18/24 10:31:00 EDT, 03/24/23 10:31:00 EDT, [facility] #[id number], 160, cm, 03/24/23 10:19:00 EDT, Height, 89.54, kg,02/09/23 16:45:00 EDT, Dry Weight Start Date: 03/24/23 Stop Date: 03/18/24 Status: Ordered lisinopril 40 mg oral tablet 1 tablet = 40 mg, By Mouth, Daily in AM, 11 AM Decreased dose, # 90 tablet, 3 Refills, Maintenance,03/18/24 10:12:00 EDT, Tablet, [facility] #[id number], 165, cm, 01/19/24 7:55:00 EDT, Height, 85.45, kg, 12/23/23 9:04:00 EDT, Dry Weight Start Date: 03/18/24 Stop Date: 03/13/25 Status: Ordered lisinopril 40 mg oral tablet 1 tablet = 40 mg, By Mouth, Daily in AM, for 90 days, 11 AM Decreased dose, # 90 tablet, 3 Refills,Hard Stop 03/18/24 10:12:00 EDT, 03/24/23 10:12:00 EDT, Tablet, [facility] #[id number], 160, cm, 03/24/23 9:26:00 EDT, Height, 89.54, kg, ... Start Date: 03/24/23 Stop Date: 03/18/24 Status: Ordered Matzim LA 180 mg/24 hours oral tablet, extended release 1 tablet = 180 mg, By Mouth, Daily in AM, Take at 11 AM, # 90 tablet, 3 Refills, Maintenance, 03/18/24 9:58:00 EDT, ER Tablet, [facility] #[id number], 165, cm, 01/19/24 7:55:00 EDT, Height, 85.45, [...] 9:58:00 EDT, 03/24/23 9:58:00 EDT, ER Tablet, [facility] #[id number], 160, cm, 03/24/23 9:26:00 EDT, H... Start Date: 03/24/23 Stop Date: 03/18/24 Status: Ordered MetFORMIN (Eqv-Glucophage XR) 500 mg oral tablet, extended release 1 tablet, By Mouth, 2 times a day with meals, INCREASE DOSE, # 180 tablet, 3 Refills, Maintenance, 12/22/23 16:13:00 EDT, [facility] #[id number], 165, cm, 12/20/23 5:43:00 EDT, Height, 84.5, kg,12/19/23 17:15:00 EDT, Dry Weight Start Date: 12/22/23 Status: Ordered metoprolol 25 mg oral tablet, extended release 25 mg, 1, tablet, By Mouth, Daily, # 30 tablet, Refills 11, Tot. Refills 11, Maintenance, 01/19/24 8:40:00 EDT, Route to Pharmacy Electronically, [facility] #[id number], 165, cm, 01/19/24 7:55:00 EDT, Height, 85.45, kg, 12/23/23 9:04:00 EDT, Dry... Start Date: 01/19/24 Status: Ordered mirtazapine 15 mg oral tablet 0.5 tablet, By Mouth, Daily at bedtime, # 45 tablet, 3 Refills, Maintenance, 03/18/24 10:22:00 EDT,[facility] #[id number], 165, cm, 01/19/24 7:55:00 EDT, Height, 85.45, kg, 12/23/23 9:04:00 EDT, Dry Weight Start Date: 03/18/24 Stop Date: 03/13/25 Status: Ordered mirtazapine 15 mg oral tablet 0.5 tablet, By Mouth, Daily at bedtime, for 90 days, # 45 tablet, 3 Refills, Hard Stop 03/18/24 10:22:00 EDT, 03/24/23 10:22:00 EDT, [facility] #[id number], 160, cm, 03/24/23 10:19:00 EDT, Height, 89.54, kg, 02/09/23 16:45:00 EDT, Dry Weight Start Date: 03/24/23 Stop Date: 03/18/24 Status: Ordered montelukast 10 mg oral tablet 1, tablet, By Mouth, Daily at bedtime, SUPPLY., # 90 tablet, Refills 3, Tot. Refills 3, Maintenance, 06/05/23 14:50:00 EDT, Route to Pharmacy Electronically, [facility] #[id number], 160, cm, 03/24/23 10:19:00 EDT, Height, 89.54, kg, 02/09/23 16:4... Start Date: 06/05/23 Status: Ordered Nucala Prefilled Autoinjector 100 mg/mL subcutaneous solution = 100 mg, Subcutaneous Infusion, Every 28 days, [id number], # 1 each, 11 Refills, Maintenance, 01/12/2414:58:00 EDT, [facility], Partial fill upon patient request if the prescription isfor a schedule II opioid drug., 165, cm, 01/04/24 1... Start Date: 01/13/24 Status: Ordered Lpa-oim-hwers medical-grade oxford diabetic shoes, depth or hightop Pla-zdd-pmanm medical-grade oxford diabetic shoes, depth or hightop, [...] capsule, 3 Refills, Maintenance, 03/18/24 10:28:00 EDT, [facility] #[id number], 165, cm, 01/19/24 7:55:00 EDT, Height, 85.45, kg, 12/23/23 9:04:00 EDT, Dry Weight Start Date: 03/18/24 Stop Date: 03/13/25 Status: Ordered omeprazole 20 mg oral enteric coated capsule 1 capsule = 20 mg, By Mouth, Daily, for 90 days, 30 minutes before breakfast MD is aware of interaction with citalopram, # 90 capsule, 3 Refills, Hard Stop 03/18/24 10:28:00 EDT, 03/24/23 10:28:00 EDT, [facility] #[id number], 160, cm, 03/24/23 1... Start Date: 03/24/23 Stop Date: 03/18/24 Status: Ordered pravastatin 80 mg oral tablet 1 tablet, By Mouth, Daily, # 90 tablet, 3 Refills, Maintenance, 03/24/23 10:32:00 EDT, [facility] #[id number], 160, cm, 03/24/23 10:19:00 EDT, Height, 89.54, kg, 02/09/23 16:45:00 EDT, Dry Weight Start Date: 03/24/23 Stop Date: 03/18/24 Status: Ordered Premarin Vaginal 0.625 mg/gm cream with applicator See Instructions, APPLY 1/2 GRAM IN THE VAGINA EVERY WEDNESDAY AND WEDNESDAY, # 30 Gm, 11 Refills, Maintenance, 01/19/24 9:20:00 EDT, [facility] #[id number], 30, APPLY 1/2 GRAM IN THE VAGINA [...] in AM, at 11 AM Given by melter operator, Dr. Indio Mason, # 30 tablet, [...] 5, 6, 7, 8 Confirmed 08/09/06 Active *[id number] [employer] Machine Operator Michelle Cain Confirmed Active Varicose vein Confirmed [...] Team Personnel Name: Haley Gonzalez RN Position: [facility] RN Member Role: Primary Care Nurse Name: Marychuy MCCLAIN, Jessica Position: [facility] Physician - Primary Care Member Role: PCP Address: Address: [address] [place] [address]- Care Team Related Persons Name: SANDY BOYCE Address: home [address] [place] [address] Name: BOYCECOLT Address: [address] [place] [address]
--- OUTSIDE RECORDS SUMMARY | 2024-07-06 12:06 | XMS_ITS | Continuity of Care Document ---
Author Organization [facility] Address [address] [place] [address]- Care Team Providers Care [employer] Supervisor Name Role Phone Marychuy MCCLAIN, Jessica Primary Care Physician Encounter [facility] Date(s): 09/24/22 - 09/24/[address] [address]- Discharge Disposition: A-D/C Home Attending Physician: Lowell Kilpatrick MD Admitting Physician: Lowell Kilpatrick MD Referring Physician: Not on Staff, Referring [...] Vaccine Date Status Refusal Reason SARS-CoV-2 mRNA (tzynekh-lqsw-rryjj) vax 02/17/22 Given influenza virus vaccine, inactivated [...] tablet, 11 Refills, Maintenance, 05/13/22 11:27:00 EDT, [facility] #[id number], Partial fill upon cherelle... Start Date: 05/13/22 Status: Ordered albuterol 0.083% inhalation solution 3 mL = 2.5 mg, Inhalation, Every 6 hours, # 25 each, 5 Refills, Maintenance, 08/12/22 15:02:00 EST,[facility] #[id number], 165, cm, 06/18/22 13:19:00 EDT, Height, 88.9, kg, 02/09/22 15:14:00 EDT, Dry Weight Start Date: 08/12/22 Stop Date: 02/08/23 Status: Ordered budesonide 0.5 mg/2 mL inhalation suspension 0.5 mg, 2, mL, Neb, 2 times a day, # 120 mL, Refills 11, Tot. Refills 11, Maintenance, 08/13/22 15:24:00 EST, Suspension, Route to Pharmacy Electronically, [id number], [facility] #[id number], 165, cm, 06/18/22 13:19:00 E... Start Date: 08/13/22 Status: Ordered calcium (as citrate)-vitamin D 315 mg-250 intl units oral tablet 2 tablet, By Mouth, 2 times a day, # 360 tablet, 0 Refills, Maintenance, 09/11/22 8:59:00 EST, [facility] #[id number], 90, TAKE 2 TABLETS BY MOUTH TWICE DAILY, 165, cm, 06/18/22 13:19:00 EDT, Height, 88.9, kg, 02/09/22 15:14:00 EDT, Dry Weight Start Date: 09/11/22 Status: Ordered citalopram 20 mg oral tablet 20 mg, 1, tablet, By Mouth, Daily, # 90 tablet, Refills 3, Tot. Refills 3, Maintenance, 07/08/22 14:31:00 EDT, Route to Pharmacy Electronically, [facility] #[id number], MD is awared of interaction w nicky, 165, cm, 06/18/22 13:19:00 EDT, He... Start Date: 07/08/22 Status: Ordered Clarinex 5 mg oral tablet 1 tablet = 5 mg, By Mouth, Daily, # 90 tablet, 3 Refills, Maintenance, 04/29/22 12:53:00 EDT, Tablet, [facility] #[id number], 165, cm, 02/23/22 14:24:00 EDT, Height, 88.9, [...] 0 Refills, Soft Stop, 10/22/21 10:11:00 EST, [facility] #[id number], 165, cm, 10/22/21 9:05:00 EST, Height, 89.5, kg, 04/23/2121:43:00 EDT, Dry Weight Start Date: 10/22/21 Status: Ordered fluticasone 50 mcg/inh nasal spray See Instructions, SPRAY 2 TIMES IN EACH NOSTRILS EVERY DAY. NEEDED FOR ALLERGY SEASON. WHEN SPRAYING KEEP HEAD DOWN, # 16 Gm, 11 Refills, 02/17/22 13:14:00 EDT, [facility] #[id number], 30, SPRAY 2 TIMES IN EACH NOSTRILS EVERY DAY. NEEDED FO... Start Date: 02/17/22 Status: Ordered FREESTYLE LANCETS 100 FREESTYLE LANCETS [...] 06/18/22 13:56:00 EDT, Route to Pharmacy Electronically, [facility] #[id number], Partial fill upon patient request if... Start Date: 06/18/22 Status: Ordered hydrochlorothiazide 12.5 mg oral tablet 1 tablet = 12.5 mg, By Mouth, Daily, discontinue HCTZ/lisinopril 25mg /20mg, # 30 tablet, 11 Refills, Maintenance, 10/29/21 13:48:00 EST, Tablet, [facility] #[id number], 165, cm, 10/29/21 12:16:00 EST, Height, 89.5, kg, 04/23/21 21:43:00 EDT, Start Date: 10/29/21 Status: Ordered levothyroxine 0.05 mg oral tablet 1 tablet, By Mouth, Daily, # 90 tablet, 1 Refills, Maintenance, 05/20/22 16:09:00 EDT, [facility] #[id number], 165, cm, 05/20/22 16:02:00 EDT, Height, 88.9, kg, 02/09/22 15:14:00 EDT, Dry Weight Start Date: 05/20/22 Status: Ordered lisinopril 40 mg oral tablet 1 tablet = 40 mg, By Mouth, Daily, discontinue HCTZ/lisinopril 25mg /20mg, # 30 tablet, 11 Refills,Maintenance, 10/29/21 13:47:00 EST, Tablet, [facility] #[id number], Partial fill upon patient request if the prescription is for a schedule II op... Start Date: 10/29/21 Status: Ordered Matzim LA 360 mg/24 hours oral tablet, extended release 1 tablet, By Mouth, Daily, # 90 tablet, 3 Refills, 02/17/22 13:08:00 EDT, [facility] #[id number], 165, cm, 02/17/22 12:49:00 EDT, Height, 88.9, kg, 02/09/22 15:14:00 EDT, Dry Weight Start Date: 02/17/22 Status: Ordered metFORMIN 500 mg oral tablet 1 tablet, By Mouth, 2 times a day, # 180 tablet, 1 Refills, Maintenance, 09/10/22 18:37:00 EST, [facility] #[id number], 165, cm, 06/18/22 13:19:00 EDT, Height, 88.9, kg, 02/09/22 15:14:00 EDT, Dry Weight Start Date: 09/10/22 Status: Ordered mirtazapine 15 mg oral tablet 0.5 tablet, By Mouth, Daily at bedtime, DECREASED DOSE., # 45 tablet, 1 Refills, Maintenance, 05/12/22 9:17:00 EDT, [facility] #[id number], 165, cm, 02/23/22 14:24:00 EDT, Height, 88.9, kg, 02/09/22 15:14:00 EDT, Dry Weight Start Date: 05/12/22 Status: Ordered montelukast 10 mg oral tablet 1, tablet, By Mouth, Daily at bedtime, SUPPLY., # 90 tablet, Refills 1, Maintenance, 06/18/22 14:04:00 EDT, Route to Pharmacy Electronically, [facility] #[id number], 165, cm, 06/18/22 13:19:00 EDT, Height, 88.9, kg, 02/09/22 15:14:00 EDT, Dry Weight Start Date: 06/18/22 Stop Date: 09/16/22 Status: Ordered Hla-ake-xyqrv medical-grade oxford diabetic shoes, depth or hightop Wao-mul-gwxkd medical-grade oxford diabetic shoes, depth or hightop, [...] Refills, Maintenance, 12/18/21 15:48:00 EDT, EC Capsule, [facility] #[id number], 165, cm, 10/29/21 12:16:00 EST,... Start Date: 12/18/21 Status: Ordered pravastatin 80 mg oral tablet 1 tablet, By Mouth, Daily, # 90 tablet, 1 Refills, Maintenance, 06/27/22 12:04:00 EDT, [facility] #[id number], 165, cm, 06/18/22 13:19:00 EDT, Height, 88.9, kg, 02/09/22 15:14:00 EDT, Dry Weight Start Date: 06/27/22 Status: Ordered Premarin Vaginal 0.625 mg/gm cream with applicator See Instructions, APPLY 1/2 GRAM IN THE VAGINA EVERY WEDNESDAY AND WEDNESDAY, # 30 Gm, 11 Refills, Maintenance, 05/11/22 14:58:00 EDT, [facility] #[id number], 30, APPLY 1/2 GRAM IN THE VAGINA [...] 4, 5, 6, 7 Confirmed 08/09/06 Active *[id number] Reporting Manager Francis Caity Confirmed Active Varicose vein Confirmed [...] oldest [Reference Range]: 1 2 3 Height 163 cm (09/24/22 10:19 PM) 163 cm (09/24/22 9:28 PM) 163 cm (09/24/22 9:25 PM) Weight 92.8 kg (09/24/22 10:19 PM) 92.8 kg (09/24/22 9:28 PM) 92.8 kg (09/24/22 9:25 PM) Oxygen Saturation [94-100 %] 96 % (09/24/22 10:19 PM) 95 % (09/24/22 9:25 PM) Pulse Rate [55-90 bpm] 72 bpm (09/24/22 10:19 PM) 85 bpm (09/24/22 9:25 PM) Body Mass Index [18.5-24.99 kg/m2] 34.93 kg/m2 *>HHI* (09/24/22 10:19 PM) 34.93 kg/m2 *>HHI* (09/24/22 9:25 PM) Blood Pressure [90-138/55-84 mm Hg] 179/70mm Hg *H* (09/24/22 10:19 PM) 174/83mm Hg *H* (09/24/22 9:25 PM) Respiratory Rate [16-30 br/min] 17 br/min (09/24/22 10:19 PM) 16 br/min (09/24/22 9:25 PM) Temperature [96.8-100.4 DegF] 97.7 DegF (09/24/22 9:25 PM) Mode of Delivery (Oxygen) Room air (09/24/22 10:19 PM) Room air (09/24/22 9:25 PM) Blood pressure sites Arm, left (09/24/22 10:19 PM) Arm, left (09/24/22 9:25 PM) Temperature Route Oral (09/24/22 9:25 PM) Dry Weight 92.8 kg (09/24/22 10:19 PM) 92.8 kg (09/24/22 9:28 PM) 92.8 kg (09/24/22 9:25 PM) Weight Obtained Via Standing scale (09/24/22 9:25 PM) Dry Weight Obtained Via Standing scale (09/24/22 9:25 PM) Social History Social History Type Response Smoking Status Never (less than 100 in lifetime) entered on: 03/26/21 Sex Note * Shonna MCCLAIN, Lowell Muñoz: PERFORM Event Display: Patient Education Leaflets Authored Date: High Blood Pressure, Established, Out of Control ?? [id number] Presi??n arterial brissa no controlada (declarada) Trin[place] [...] cuando el coraz??n se relaja entre latidos. Tyler?? que las lecturas de la presi??n arterial se escriben juntas. Por ejemplo, si deanna persona tiene deanna presi??n sist??lica de??118 y deanna presi??n diast??lica de??78, en el registro m??dico [...] usted. No tiene que ser dif??cil. Incluso deanna caminata en??rgica de 20??minutos 3??veces por semana es deanna buena manera de ejercitarse. ??? No use [...] o la coca??na, pueden ser letales para deanna persona con presi??n arterial brissa, as?? marialuisa [...] Aprenda a controlar mejor el estr??s. Es deanna parte fundamental de cualquier programa para bajar [...] proveedor de atenci??n m??dica. ??? Si omite deanna dosis o m??s de los medicamentos, hable con trinidad proveedor de atenci??n m??dica o farmac??utico. ??? Considere la posibilidad de comprar un medidor de presi??n arterial. Trinidad proveedor posiblemente le recomiende alg??n tipo espec??fico. Estos se encuentran disponibles en la mayor??a de las farmacias. Lo ideal es que se tome la presi??n arterial dos veces ald??a, deanna por la ma??krunal y deanna al atardecer. Trate de ser anita. Controle trinidad presi??n arterial aproximadamente al mismo horario todos los d??as para compararla mejor. Mantenga un registro de las lecturas de presi??n arterial que dangelo?? en trinidad hogar y ll??velo a las citas m??dicas. La [employer] (Asociaci??n Cardiol??gica Estadounidense) aconseja estas [...] se siente en un sill??n ni en deanna silla mullida. No cruce los pies y ap??yelos en el piso. El brazo debe estar apoyado en deanna superficie s??una plana (marialuisa deanna owens) con la parte superior del brazo al nivel del coraz??n. Aseg??rese de que la mitad del tensi??metro est?? jeanine encima de la parte interior del codo. Revise el manual de instrucciones del tensi??metro para tener deanna referencia visual. ??? T??mese varias veces la [...] pr??xima sae. Si trinidad tensi??metro dom??stico posee deanna memoria interna, solo lleve el dispositivo a trinidad pr??xima sae m??dica. ??? Llame al proveedor si tiene varias lecturas brissa s. No se asuste si tiene deanna lectura brissa, gorge si tiene varias lecturas altas, consulte con trinidad proveedor de atenci??n m??dica. ??? Nota: Si la presi??n arterial alcanza un valor sist??franca (n??fozia superior) de??180 o m??s alto o un valor diast??franca (n??fozia inferior) de??110 o m??s alto, necesita tratamiento m??dico de emergencia. Llame de inmediato al proveedor de atenci??n m??dica. ?? Atenci??n de seguimiento Deanna parte importante del cuidado son las visitas regulares al proveedor de atenci??n m??dica para??las revisiones??de la presi??n arterial y el ajuste de los medicamentos. Programe deanna sae de seguimiento seg??n le indiquen. Lleve [...] cuerpo) ??? Dificultad para hablar o para tyler? Last Reviewed Date: 2022 ?? [id number] [employer]. Todos los derechos reservados. Esta informaci??n no pretende sustituir la atenci??n m??dica profesional. S??lo trinidad m??dico puede diagnosticar y tratar un problema de leydi. ?? Patient Care team information Care Team Personnel Name: Carlos RNHaley Position: [facility] RN Member Role: Primary Care Nurse Name: Jessica Perrin MD Position: [facility] Primary Care Physician Member Role: PCP Address: Address: [address] [place] [id number]- Name: Mary Santillan RN Position: [facility] ED RN W/OE and Tasks Member Role: Patient Care Provider Name: Lowell Kilpatrick MD Position: [facility] ED Medicine MD Member Role: Admitting Physician Address: Address: [address] [place] [address]- [place] [address]- Name: Debbie Perez Position: [facility] ED [facility] Member Role: Patient Care Provider Care Team Related Persons Name: SANDY BOYCE Address: home [address] [place] [address] Name: COLT BOYCE Address: home [address] [place] [id number]
--- OUTSIDE RECORDS SUMMARY | 2024-07-06 12:06 | XMS_ITS | Continuity of Care Document ---
Author Organization [facility] Address [address] [place] [address]- Care Team Providers Care Bend Sorter Name Role Phone Marychuy MCCLAIN, Jessica Primary Care Physician [facility]counter [facility] Date(s): 09/25/22 - 10/25/22 [facility]/[place] [address]- [place] Allergies, Adverse Reactions, Alerts Substance Reaction [...] Vaccine Date Status Refusal Reason SARS-CoV-2 mRNA (wvbsvsj-naej-wxkka) vax 02/17/22 Given influenza virus vaccine, inactivated [...] tablet, 11 Refills, Maintenance, 05/13/22 11:27:00 EDT, [facility] #[id number], Partial fill upon cherelle... Start Date: 05/13/22 Status: Ordered albuterol 0.083% inhalation solution 3 mL = 2.5 mg, Inhalation, Every 6 hours, # 25 each, 5 Refills, Maintenance, 08/12/22 15:02:00 EST,[facility] #[id number], 165, cm, 06/18/22 13:19:00 EDT, Height, 88.9, kg, 02/09/22 15:14:00 EDT, Dry Weight Start Date: 08/12/22 Stop Date: 02/08/23 Status: Ordered budesonide 0.5 mg/2 mL inhalation suspension 0.5 mg, 2, mL, Neb, 2 times a day, # 120 mL, Refills 11, Tot. Refills 11, Maintenance, 10/16/22 16:58:00 EST, Suspension, Route to Pharmacy Electronically, [id number], [facility] #[id number], 163, cm, 10/16/22 16:21:00 E... Start Date: 10/16/22 Status: Ordered budesonide 0.5 mg/2 mL inhalation suspension 0.5 mg, 2, mL, Neb, 2 times a day, # 120 mL, Refills 11, Tot. Refills 11, Maintenance, 08/13/22 15:24:00 EST, Suspension, Route to Pharmacy Electronically, [id number], [facility] #[id number], 165, cm, 06/18/22 13:19:00 E... Start Date: 08/13/22 Status: Ordered calcium (as citrate)-vitamin D 315 mg-250 intl units oral tablet 2 tablet, By Mouth, 2 times a day, # 360 tablet, 0 Refills, Maintenance, 09/11/22 8:59:00 EST, [facility] #[id number], 90, TAKE 2 TABLETS BY MOUTH TWICE DAILY, 165, cm, 06/18/22 13:19:00 EDT, Height, 88.9, kg, 02/09/22 15:14:00 EDT, Dry Weight Start Date: 09/11/22 Status: Ordered citalopram 20 mg oral tablet 20 mg, 1, tablet, By Mouth, Daily, # 90 tablet, Refills 3, Tot. Refills 3, Maintenance, 07/08/22 14:31:00 EDT, Route to Pharmacy Electronically, [facility] #[id number], is awared of interaction w rosaseshelli, 165, cm, 06/18/22 13:19:00 EDT, He... Start Date: 07/08/22 Status: Ordered Clarinex 5 mg oral tablet 1 tablet = 5 mg, By Mouth, Daily, # 90 tablet, 3 Refills, Maintenance, 04/29/22 12:53:00 EDT, Tablet, [facility] #[id number], 165, cm, 02/23/22 14:24:00 EDT, Height, 88.9, [...] 0 Refills, Soft Stop, 10/22/21 10:11:00 EST, [facility] #[id number], 165, cm, 10/22/21 9:05:00 EST, Height, 89.5, kg, 04/23/2121:43:00 EDT, Dry Weight Start Date: 10/22/21 Status: Ordered fluticasone 50 mcg/inh nasal spray See Instructions, SPRAY 2 TIMES IN EACH NOSTRILS EVERY DAY. NEEDED FOR ALLERGY SEASON. WHEN SPRAYING KEEP HEAD DOWN, # 16 Gm, 11 Refills, 02/17/22 13:14:00 EDT, [facility] #[id number], 30, SPRAY 2 TIMES IN EACH NOSTRILS EVERY DAY. NEEDED FO... Start Date: 02/17/22 Status: Ordered formoterol 10 mcg/mL inhalation solution 2 mL = 20 mcg, Inhalation, 2 times a day, using a continuous flow nebulizer, # 120 mL, 11 Refills, Maintenance, 10/16/22 16:58:00 EST, Solution, [facility] #[id number], Partial fill upon patientrequest if the prescription [...] 06/18/22 13:56:00 EDT, Route to Pharmacy Electronically, [facility] #[id number], Partial fill upon patient request if... Start [...] tablet, 11 Refills, Maintenance, 09/30/22 12:56:00 EST, [facility] #[id number], 163, cm, 09/30/22 11:48:00 EST, Height, 92.8, kg, 09/24/22 22:19:00 EST, Dry Weight Start Date: 09/30/22 Status: Ordered lisinopril 40 mg oral tablet 1 tablet = 40 mg, By Mouth, 2 times a day, increase dose discontinue HCTZ 12.5mg, # 60 tablet, 11 Refills, Maintenance, 09/30/22 12:54:00 EST, Tablet, [facility] #[id number], 163, cm, 09/30/22 11:48:00 EST, Height, 92.8, kg, 09/24/22 22:19:00... Start Date: 09/30/22 Stop Date: 09/25/23 Status: Ordered Matzim LA 360 mg/24 hours oral tablet, extended release 1 tablet, By Mouth, Daily, # 90 tablet, 3 Refills, 02/17/22 13:08:00 EDT, [facility] #[id number], 165, cm, 02/17/22 12:49:00 EDT, Height, 88.9, kg, 02/09/22 15:14:00 EDT, Dry Weight Start Date: 02/17/22 Status: Ordered metFORMIN 500 mg oral tablet, extended release 1 tablet = 500 mg, By Mouth, Daily in AM, discontinue metformin 500mg with meal, # 30 tablet, 11 Refills, Maintenance, 09/30/22 12:51:00 EST, ER Tablet, [facility] #[id number], 163, cm, 09/30/2310:48:00 EST, Height, 92.8, kg, 09/24/22 22:1... Start Date: 09/30/22 Status: Ordered mirtazapine 15 mg oral tablet 0.5 tablet, By Mouth, Daily at bedtime, DECREASED DOSE, # 45 tablet, 1 Refills, Maintenance, 10/20/22 20:06:00 EST, [facility] #[id number], 163, cm, 10/16/22 16:21:00 EST, Height, 92.8, kg, 09/24/22 22:19:00 EST, Dry Weight Start Date: 10/20/22 Status: Ordered montelukast 10 mg oral tablet 1, tablet, By Mouth, Daily at bedtime, SUPPLY., # 90 tablet, Refills 1, Maintenance, 06/18/22 14:04:00 EDT, Route to Pharmacy Electronically, [facility] #[id number], 165, cm, 06/18/22 13:19:00 EDT, Height, 88.9, kg, 02/09/22 15:14:00 EDT, Dry Weight Start Date: 06/18/22 Stop Date: 09/16/22 Status: Ordered Myz-fze-fcrgg medical-grade oxford diabetic shoes, depth or hightop Ptb-axm-tqhnl medical-grade oxford diabetic shoes, depth or hightop, [...] Refills, Maintenance, 12/18/21 15:48:00 EDT, EC Capsule, [facility] #[id number], 165, cm, 10/29/21 12:16:00 EST,... Start Date: 12/18/21 Status: Ordered pravastatin 80 mg oral tablet 1 tablet, By Mouth, Daily, # 90 tablet, 1 Refills, Maintenance, 06/27/22 12:04:00 EDT, [facility] #[id number], 165, cm, 06/18/22 13:19:00 EDT, Height, 88.9, kg, 02/09/22 15:14:00 EDT, Dry Weight Start Date: 06/27/22 Status: Ordered Premarin Vaginal 0.625 mg/gm cream with applicator See Instructions, APPLY 1/2 GRAM IN THE VAGINA EVERY WEDNESDAY AND WEDNESDAY, # 30 Gm, 11 Refills, Maintenance, 05/11/22 14:58:00 EDT, [facility] #00654, 30, APPLY 1/2 GRAM IN THE VAGINA EVERY WEDNESDAY AND WEDNESDAY, 165, cm, 02/23/22 14:24:00 EDT,... Start Date: 05/11/22 Status: Ordered ProAir HFA 90 mcg/inh inhalation aerosol with adapter 2, puffs, Inhalation, 4 times a day, PRN, # 1 each, Refills 11, Tot. Refills 11, Maintenance, 10/16/22 17:00:00 EST, Route to Pharmacy Electronically, [id number], [facility] #[id number], 163, cm, 10/16/22 16:21:00 EST, H... Start [...] 4, 5, 6, 7 Confirmed 08/09/06 Active *[id number] Senior Front End Developer Francis Caity Confirmed Active Varicose vein Confirmed [...] Physician Member Role: PCP Address: Address: [address] [place] [address]- Care Team Related Persons Name: SANDY BOYCE Address: home [address] [place] [address] Name: COLT BOYCE Address: [address] [place] [address]
--- OUTSIDE RECORDS SUMMARY | 2024-07-06 12:06 | XMS_ITS | Continuity of Care Document ---
Author Organization [facility] Address [address] [place] [address]- Care Team Providers Care Motor Boss Name Role Phone Marychuy MCCLAIN, Jessica Primary Care Physician [facility] Date(s): 11/05/22 - 12/05/22 [facility]/[place] [address]- [place] Allergies, Adverse Reactions, Alerts Substance Reaction [...] Vaccine Date Status Refusal Reason SARS-CoV-2 mRNA (dhvnpdg-aonx-caofl) vax 02/17/22 Given influenza virus vaccine, inactivated [...] tablet, 11 Refills, Maintenance, 05/13/22 11:27:00 EDT, [facility] #[id number], Partial fill upon cherelle... Start Date: 05/13/22 Status: Ordered albuterol 0.083% inhalation solution 3 mL = 2.5 mg, Inhalation, Every 6 hours, # 25 each, 5 Refills, Maintenance, 08/12/22 15:02:00 EST,[facility] #[id number], 165, cm, 06/18/22 13:19:00 EDT, Height, 88.9, kg, 02/09/22 15:14:00 EDT, Dry Weight Start Date: 08/12/22 Stop Date: 02/08/23 Status: Ordered budesonide 0.5 mg/2 mL inhalation suspension 0.5 mg, 2, mL, Neb, 2 times a day, # 120 mL, Refills 11, Tot. Refills 11, Maintenance, 10/16/22 16:58:00 EST, Suspension, Route to Pharmacy Electronically, [id number], [facility] #[id number], 163, cm, 10/16/22 16:21:00 E... Start Date: 10/16/22 Status: Ordered budesonide 0.5 mg/2 mL inhalation suspension 0.5 mg, 2, mL, Neb, 2 times a day, # 120 mL, Refills 11, Tot. Refills 11, Maintenance, 08/13/22 15:24:00 EST, Suspension, Route to Pharmacy Electronically, [id number], [facility] #[id number], 165, cm, 06/18/22 13:19:00 E... Start Date: 08/13/22 Status: Ordered calcium (as citrate)-vitamin D 315 mg-250 intl units oral tablet 2 tablet, By Mouth, 2 times a day, # 360 tablet, 0 Refills, Maintenance, 09/11/22 8:59:00 EST, [facility] #[id number], 90, TAKE 2 TABLETS BY MOUTH TWICE DAILY, 165, cm, 06/18/22 13:19:00 EDT, Height, 88.9, kg, 02/09/22 15:14:00 EDT, Dry Weight Start Date: 09/11/22 Status: Ordered citalopram 20 mg oral tablet 20 mg, 1, tablet, By Mouth, Daily, # 90 tablet, Refills 3, Tot. Refills 3, Maintenance, 07/08/22 14:31:00 EDT, Route to Pharmacy Electronically, [facility] #[id number], is awared of interaction w rosaseshelli, 165, cm, 06/18/22 13:19:00 EDT, He... Start Date: 07/08/22 Status: Ordered Clarinex 5 mg oral tablet 1 tablet = 5 mg, By Mouth, Daily, # 90 tablet, 3 Refills, Maintenance, 04/29/22 12:53:00 EDT, Tablet, [facility] #[id number], 165, cm, 02/23/22 14:24:00 EDT, Height, 88.9, [...] 0 Refills, Soft Stop, 10/22/21 10:11:00 EST, [facility] #35241, 165, cm, 10/22/21 9:05:00 EST, Height, 89.5, kg, 04/23/2121:43:00 EDT, Dry Weight Start Date: 10/22/21 Status: Ordered fluticasone 50 mcg/inh nasal spray See Instructions, SPRAY 2 TIMES IN EACH NOSTRILS EVERY DAY. NEEDED FOR ALLERGY SEASON. WHEN SPRAYING KEEP HEAD DOWN, # 16 Gm, 11 Refills, 02/17/22 13:14:00 EDT, [facility] #[id number], 30, SPRAY 2 TIMES IN EACH NOSTRILS EVERY DAY. NEEDED FO... Start Date: 02/17/22 Status: Ordered formoterol 10 mcg/mL inhalation solution 2 mL = 20 mcg, Inhalation, 2 times a day, using a continuous flow nebulizer, # 120 mL, 11 Refills, Maintenance, 10/16/22 16:58:00 EST, Solution, [facility] #02211, Partial fill upon patientrequest if the prescription [...] 11/05/22 17:53:00 EST, Route to Pharmacy Electronically, [facility] #[id number], Partial fill upon patient request if the prescription is for a schedule II opi... Start Date: 11/05/22 Stop Date: 11/10/22 Status: Ordered gabapentin 300 mg oral capsule 300 mg, 1, capsule, By Mouth, 2 times a day, PRN, # 20 capsule, Refills 0, Tot. Refills 0, Maintenance, Pain , Severe, 11/05/22 17:53:00 EST, Route to Pharmacy Electronically, [facility] #[id number], Partial fill upon patient request if the presc... Start Date: 11/05/22 Stop Date: 11/15/22 Status: Ordered hydrALAZINE 25 mg oral tablet 25 mg, 1, tablet, By Mouth, 3 times a day, discontinue hydralazine 10mg, # 90 tablet, Refills 11, Tot. Refills 11, Maintenance, 06/18/22 13:56:00 EDT, Route to Pharmacy Electronically, [facility] #[id number], Partial fill upon patient request if... Start [...] tablet, 11 Refills, Maintenance, 09/30/22 12:56:00 EST, [facility] #[id number], 163, cm, 09/30/22 11:48:00 EST, Height, 92.8, kg, 09/24/22 22:19:00 EST, Dry Weight Start Date: 09/30/22 Status: Ordered lisinopril 40 mg oral tablet 1 tablet = 40 mg, By Mouth, 2 times a day, increase dose discontinue HCTZ 12.5mg, # 60 tablet, 11 Refills, Maintenance, 09/30/22 12:54:00 EST, Tablet, [facility] #[id number], 163, cm, 09/30/22 11:48:00 EST, Height, 92.8, kg, 09/24/22 22:19:00... Start Date: 09/30/22 Stop Date: 09/25/23 Status: Ordered Matzim LA 360 mg/24 hours oral tablet, extended release 1 tablet, By Mouth, Daily, # 90 tablet, 3 Refills, 02/17/22 13:08:00 EDT, [facility] #[id number], 165, cm, 02/17/22 12:49:00 EDT, Height, 88.9, kg, 02/09/22 15:14:00 EDT, Dry Weight Start Date: 02/17/22 Status: Ordered metFORMIN 500 mg oral tablet, extended release 1 tablet = 500 mg, By Mouth, Daily in AM, discontinue metformin 500mg with meal, # 30 tablet, 11 Refills, Maintenance, 09/30/22 12:51:00 EST, ER Tablet, [facility] #[id number], 163, cm, 09/30/2310:48:00 EST, Height, 92.8, kg, 09/24/22 22:1... Start Date: 09/30/22 Status: Ordered mirtazapine 15 mg oral tablet 0.5 tablet, By Mouth, Daily at bedtime, DECREASED DOSE, # 45 tablet, 1 Refills, Maintenance, 10/20/22 20:06:00 EST, [facility] #15222, 163, cm, 10/16/22 16:21:00 EST, Height, 92.8, kg, 09/24/22 22:19:00 EST, Dry Weight Start Date: 10/20/22 Status: Ordered montelukast 10 mg oral tablet 1, tablet, By Mouth, Daily at bedtime, SUPPLY., # 90 tablet, Refills 1, Maintenance, 06/18/22 14:04:00 EDT, Route to Pharmacy Electronically, [facility] #[id number], 165, cm, 06/18/22 13:19:00 EDT, Height, 88.9, kg, 02/09/22 15:14:00 EDT, Dry Weight Start Date: 06/18/22 Stop Date: 09/16/22 Status: Ordered Fdc-gga-dqmuu medical-grade oxford diabetic shoes, depth or hightop Sng-etr-vbnit medical-grade oxford diabetic shoes, depth or hightop, [...] Refills, Maintenance, 12/18/21 15:48:00 EDT, EC Capsule, [facility] #[id number], 165, cm, 10/29/21 12:16:00 EST,... Start Date: 12/18/21 Status: Ordered pravastatin 80 mg oral tablet 1 tablet, By Mouth, Daily, # 90 tablet, 1 Refills, Maintenance, 06/27/22 12:04:00 EDT, [facility] #60083, 165, cm, 06/18/22 13:19:00 EDT, Height, 88.9, kg, 02/09/22 15:14:00 EDT, Dry Weight Start Date: 06/27/22 Status: Ordered Premarin Vaginal 0.625 mg/gm cream with applicator See Instructions, APPLY 1/2 GRAM IN THE VAGINA EVERY WEDNESDAY AND WEDNESDAY, # 30 Gm, 11 Refills, Maintenance, 05/11/22 14:58:00 EDT, [facility] #52043, 30, APPLY 1/2 GRAM IN THE VAGINA EVERY WEDNESDAY AND WEDNESDAY, 165, cm, 02/23/22 14:24:00 EDT,... Start Date: 05/11/22 Status: Ordered ProAir HFA 90 mcg/inh inhalation aerosol with adapter 2, puffs, Inhalation, 4 times a day, PRN, # 1 each, Refills 11, Tot. Refills 11, Maintenance, 10/16/22 17:00:00 EST, Route to Pharmacy Electronically, [id number], [facility] #[id number], 163, cm, 10/16/22 16:21:00 EST, H... Start [...] 4, 5, 6, 7 Confirmed 08/09/06 Active *[phone] Entry Level Account Representative Francis Malinarnacion Confirmed Active Varicose vein Confirmed [...] Team Personnel Name: Carlos PAREDES, Haley Position: [facility] RN Member Role: Primary Care Nurse Name: Jessica Perrin MD Position: [facility] Primary Care Physician Member Role: PCP Address: Address: [address] [place] [address]- Care Team Related Persons Name: SANDY BOYCE Address: [address] [place] [address] Name: BETH BOYCEO Address: home [address] [place] [address]
--- OUTSIDE RECORDS SUMMARY | 2024-07-06 12:06 | XMS_ITS | Continuity of Care Document ---
Author Organization [facility] Address [address] [place] [id number]- Care Team Providers Care Child Nutrition Manager Name Role Phone Marychuy MCCLAIN, Jessica Primary Care Physician [facility]counter [facility] Date(s): 06/08/22 - 07/12/[address] [address] Attending Physician: Jessica Perrin MD Admitting Physician: [...] Vaccine Date Status Refusal Reason SARS-CoV-2 mRNA (jpdcenp-lgar-shtwx) vax 02/17/22 Given influenza virus vaccine, inactivated [...] tablet, 11 Refills, Maintenance, 05/13/22 11:27:00 EDT, [facility] #[id number], Partial fill upon cherelle... Start Date: 05/13/22 Status: Ordered albuterol 0.083% inhalation solution 3 mL = 2.5 mg, Inhalation, Every 6 hours, # 25 each, 2 Refills, Maintenance, 05/13/22 11:31:00 EDT,[facility] #63791, 165, cm, 05/13/22 10:23:00 EDT, Height, 88.9, kg, 02/09/22 15:14:00 EDT, Dry Weight Start Date: 05/13/22 Stop Date: 08/11/22 Status: Ordered budesonide 0.5 mg/2 mL inhalation suspension 0.5 mg, 2, mL, Neb, 2 times a day, # 120 mL, Refills 5, Tot. Refills 5, Maintenance, 02/11/22 14:27:00 EDT, Suspension, Route to Pharmacy Electronically, [id number], [facility] #[id number], 165, cm, 02/09/22 15:14:00 EDT... Start Date: 02/11/22 Status: Ordered calcium (as citrate)-vitamin D 315 mg-250 intl units oral tablet 2 tablet, By Mouth, 2 times a day, # 360 tablet, 0 Refills, [facility] #[id number], 90, TAKE 2TABLETS BY MOUTH TWICE DAILY, 165, cm, 02/23/22 14:24:00 EDT, Height, 88.9, kg, 02/09/22 15:14:00 EDT, Dry Weight Start Date: 04/01/22 Status: Ordered citalopram 20 mg oral tablet 20 mg, 1, tablet, By Mouth, Daily, # 90 tablet, Refills 3, Tot. Refills 3, Maintenance, 07/08/22 14:31:00 EDT, Route to Pharmacy Electronically, [facility] #[id number], is awared of interaction w nicky, 165, cm, 06/18/22 13:19:00 EDT, He... Start Date: 07/08/22 Status: Ordered Clarinex 5 mg oral tablet 1 tablet = 5 mg, By Mouth, Daily, # 90 tablet, 3 Refills, Maintenance, 04/29/22 12:53:00 EDT, Tablet, [facility] #21624, 165, cm, 02/23/22 14:24:00 EDT, Height, 88.9, [...] 0 Refills, Soft Stop, 10/22/21 10:11:00 EST, [facility] #[id number], 165, cm, 10/22/21 9:05:00 EST, Height, 89.5, kg, 04/23/2121:43:00 EDT, Dry Weight Start Date: 10/22/21 Status: Ordered fluticasone 50 mcg/inh nasal spray See Instructions, SPRAY 2 TIMES IN EACH NOSTRILS EVERY DAY. NEEDED FOR ALLERGY SEASON. WHEN SPRAYING KEEP HEAD DOWN, # 16 Gm, 11 Refills, 02/17/22 13:14:00 EDT, [facility] #[id number], 30, SPRAY 2 TIMES IN EACH NOSTRILS EVERY DAY. NEEDED FO... Start Date: 02/17/22 Status: Ordered formoterol 10 mcg/mL inhalation solution 2 mL = 20 mcg, Inhalation, 2 times a day, using a continuous flow nebulizer, # 60 each, 5 Refills, Maintenance, 02/11/22 14:28:00 EDT, Solution, [facility] #[id number], 165, cm, 02/09/22 15:14:00 EDT, Height, 88.9, [...] 06/18/22 13:56:00 EDT, Route to Pharmacy Electronically, [facility] #[id number], Partial fill upon patient request if... Start Date: 06/18/22 Status: Ordered hydrochlorothiazide 12.5 mg oral tablet 1 tablet = 12.5 mg, By Mouth, Daily, discontinue HCTZ/lisinopril 25mg /20mg, # 30 tablet, 11 Refills, Maintenance, 10/29/21 13:48:00 EST, Tablet, [facility] #[id number], 165, cm, 10/29/21 12:16:00 EST, Height, 89.5, kg, 04/23/21 21:43:00 EDT, . Start Date: 10/29/21 Status: Ordered levothyroxine 0.05 mg oral tablet 1 tablet, By Mouth, Daily, # 90 tablet, 1 Refills, Maintenance, 05/20/22 16:09:00 EDT, [facility] #[id number], 165, cm, 05/20/22 16:02:00 EDT, Height, 88.9, kg, 02/09/22 15:14:00 EDT, Dry Weight Start Date: 05/20/22 Status: Ordered lisinopril 40 mg oral tablet 1 tablet = 40 mg, By Mouth, Daily, discontinue HCTZ/lisinopril 25mg /20mg, # 30 tablet, 11 Refills,Maintenance, 10/29/21 13:47:00 EST, Tablet, [facility] #[id number], Partial fill upon patient request if the prescription is for a schedule II op... Start Date: 10/29/21 Status: Ordered Matzim LA 360 mg/24 hours oral tablet, extended release 1 tablet, By Mouth, Daily, # 90 tablet, 3 Refills, 02/17/22 13:08:00 EDT, [facility] #[id number], 165, cm, 02/17/22 12:49:00 EDT, Height, 88.9, kg, 02/09/22 15:14:00 EDT, Dry Weight Start Date: 02/17/22 Status: Ordered metFORMIN 500 mg oral tablet 1 tablet, By Mouth, 2 times a day, # 180 tablet, 3 Refills, Maintenance, 10/13/21 14:33:00 EST, [facility] #[id number], 165, cm, 04/23/21 21:43:00 EDT, Height, 89.5, kg, 04/23/21 21:43:00 EDT, Dry Weight Start Date: 10/13/21 Status: Ordered mirtazapine 15 mg oral tablet 0.5 tablet, By Mouth, Daily at bedtime, DECREASED DOSE., # 45 tablet, 1 Refills, Maintenance, 05/12/22 9:17:00 EDT, [facility] #[id number], 165, cm, 02/23/22 14:24:00 EDT, Height, 88.9, kg, 02/09/22 15:14:00 EDT, Dry Weight Start Date: 05/12/22 Status: Ordered montelukast 10 mg oral tablet 1, tablet, By Mouth, Daily at bedtime, SUPPLY., # 90 tablet, Refills 1, Maintenance, 06/18/22 14:04:00 EDT, Route to Pharmacy Electronically, [facility] #[id number], 165, cm, 06/18/22 13:19:00 EDT, Height, 88.9, kg, 02/09/22 15:14:00 EDT, Dry Weight Start Date: 06/18/22 Stop Date: 09/16/22 Status: Ordered Oms-zsl-yywdb medical-grade oxford diabetic shoes, depth or hightop Fxg-tuo-ljatg medical-grade oxford diabetic shoes, depth or hightop, [...] Refills, Maintenance, 12/18/21 15:48:00 EDT, EC Capsule, [facility] #[id number], 165, cm, 10/29/21 12:16:00 EST,... Start Date: 12/18/21 Status: Ordered Paxlovid 150 mg-100 mg (150 mg-100 mg Dose) oral tablet See Instructions, Three tablets by mouth BID as per package directions, # 1 pack/packet, 0 Refills,Acute 06/11/23 9:38:00 EDT, 06/10/22 9:37:00 EDT, [facility] #[id number], Partial fill upon patient request if the prescription is for a schedule... Start Date: 06/10/22 Stop Date: 06/11/23 Status: Ordered pravastatin 80 mg oral tablet 1 tablet, By Mouth, Daily, # 90 tablet, 1 Refills, Maintenance, 06/27/22 12:04:00 EDT, [facility] #[id number], 165, cm, 06/18/22 13:19:00 EDT, Height, 88.9, kg, 02/09/22 15:14:00 EDT, Dry Weight Start Date: 06/27/22 Status: Ordered Premarin Vaginal 0.625 mg/gm cream with applicator See Instructions, APPLY 1/2 GRAM IN THE VAGINA EVERY WEDNESDAY AND WEDNESDAY, # 30 Gm, 11 Refills, Maintenance, 05/11/22 14:58:00 EDT, [facility] #21707, 30, APPLY 1/2 GRAM IN THE VAGINA [...] Gm, 5 Refills, Maintenance, 05/13/22 11:27:00 EDT, [facility] #[id number], Partial fill upon patient request if the [...] 4, 5, 6, 7 Confirmed 08/09/06 Active [phone] Database Administration Manager Yee Ceballos Confirmed Active Varicose vein Confirmed [...] Personnel Name: Marychuy MCCLAIN, Jessica Address: Address: [address] [place] [address]
--- OUTSIDE RECORDS SUMMARY | 2024-07-06 12:06 | XMS_ITS | Continuity of Care Document ---
Author Organization [facility] Address [address] [place] [address]- Care Team Providers Care Derrick Man Name Role Phone Marychuy MCCLAIN, Jessica Primary Care Physician [facility] Date(s): 09/10/22 - 10/10/22 [facility] [address]- [place] Allergies, Adverse Reactions, Alerts Substance Reaction [...] Vaccine Date Status Refusal Reason SARS-CoV-2 mRNA (iinswya-afbl-nckqy) vax 02/17/22 Given influenza virus vaccine, inactivated [...] tablet, 11 Refills, Maintenance, 05/13/22 11:27:00 EDT, [facility], STORE #[id number], Partial fill upon cherelle... Start Date: 05/13/22 Status: Ordered albuterol 0.083% inhalation solution 3 mL = 2.5 mg, Inhalation, Every 6 hours, # 25 each, 5 Refills, Maintenance, 08/12/22 15:02:00 EST,[facility] #[id number], 165, cm, 06/18/22 13:19:00 EDT, Height, 88.9, kg, 02/09/22 15:14:00 EDT, Dry Weight Start Date: 08/12/22 Stop Date: 02/08/23 Status: Ordered budesonide 0.5 mg/2 mL inhalation suspension 0.5 mg, 2, mL, Neb, 2 times a day, # 120 mL, Refills 11, Tot. Refills 11, Maintenance, 08/13/22 15:24:00 EST, Suspension, Route to Pharmacy Electronically, [id number], [facility], STORE #[id number], 165, cm, 06/18/22 13:19:00 E... Start Date: 08/13/22 Status: Ordered calcium (as citrate)-vitamin D 315 mg-250 intl units oral tablet 2 tablet, By Mouth, 2 times a day, # 360 tablet, 0 Refills, Maintenance, 09/11/22 8:59:00 EST, [facility], STORE #[id number], 90, TAKE 2 TABLETS BY MOUTH TWICE DAILY, 165, cm, 06/18/22 13:19:00 EDT, Height, 88.9, kg, 02/09/22 15:14:00 EDT, Dry Weight Start Date: 09/11/22 Status: Ordered citalopram 20 mg oral tablet 20 mg, 1, tablet, By Mouth, Daily, # 90 tablet, Refills 3, Tot. Refills 3, Maintenance, 07/08/22 14:31:00 EDT, Route to Pharmacy Electronically, [facility] #[id number], MD is awared of interaction w nicky, 165, cm, 06/18/22 13:19:00 EDT, He... Start Date: 07/08/22 Status: Ordered Clarinex 5 mg oral tablet 1 tablet = 5 mg, By Mouth, Daily, # 90 tablet, 3 Refills, Maintenance, 04/29/22 12:53:00 EDT, Tablet, [facility], STORE #[id number], 165, cm, 02/23/22 14:24:00 EDT, Height, 88.9, [...] 0 Refills, Soft Stop, 10/22/21 10:11:00 EST, [facility], STORE #[id number], 165, cm, 10/22/21 9:05:00 EST, Height, 89.5, kg, 04/23/2121:43:00 EDT, Dry Weight Start Date: 10/22/21 Status: Ordered fluticasone 50 mcg/inh nasal spray See Instructions, SPRAY 2 TIMES IN EACH NOSTRILS EVERY DAY. NEEDED FOR ALLERGY SEASON. WHEN SPRAYING KEEP HEAD DOWN, # 16 Gm, 11 Refills, 02/17/22 13:14:00 EDT, [facility], STORE #10562, 30, SPRAY 2 TIMES IN EACH NOSTRILS [...] 06/18/22 13:56:00 EDT, Route to Pharmacy Electronically, [facility] #[id number], Partial fill upon patient request if... Start Date: 06/18/22 Status: Ordered levothyroxine 0.05 mg oral tablet 1 tablet, By Mouth, Daily, # 30 tablet, 11 Refills, Maintenance, 09/30/22 12:56:00 EST, [facility], STORE #[id number], 163, cm, 09/30/22 11:48:00 EST, Height, 92.8, kg, 09/24/22 22:19:00 EST, Dry Weight Start Date: 09/30/22 Status: Ordered lisinopril 40 mg oral tablet 1 tablet = 40 mg, By Mouth, 2 times a day, increase dose discontinue HCTZ 12.5mg, # 60 tablet, 11 Refills, Maintenance, 09/30/22 12:54:00 EST, Tablet, [facility] #[id number], 163, cm, 09/30/22 11:48:00 EST, Height, 92.8, kg, 09/24/22 22:19:00... Start Date: 09/30/22 Stop Date: 09/25/23 Status: Ordered Matzim LA 360 mg/24 hours oral tablet, extended release 1 tablet, By Mouth, Daily, # 90 tablet, 3 Refills, 02/17/22 13:08:00 EDT, [facility], STORE #[id number], 165, cm, 02/17/22 12:49:00 EDT, Height, 88.9, kg, 02/09/22 15:14:00 EDT, Dry Weight Start Date: 02/17/22 Status: Ordered metFORMIN 500 mg oral tablet, extended release 1 tablet = 500 mg, By Mouth, Daily in AM, discontinue metformin 500mg with meal, # 30 tablet, 11 Refills, Maintenance, 09/30/22 12:51:00 EST, ER Tablet, [facility], STORE #[id number], 163, cm, 09/30/2310:48:00 EST, Height, 92.8, kg, 09/24/22 22:1... Start Date: 09/30/22 Status: Ordered mirtazapine 15 mg oral tablet 0.5 tablet, By Mouth, Daily at bedtime, DECREASED DOSE., # 45 tablet, 1 Refills, Maintenance, 05/12/22 9:17:00 EDT, [facility], STORE #[id number], 165, cm, 02/23/22 14:24:00 EDT, Height, 88.9, kg, 02/09/22 15:14:00 EDT, Dry Weight Start Date: 05/12/22 Status: Ordered montelukast 10 mg oral tablet 1, tablet, By Mouth, Daily at bedtime, SUPPLY., # 90 tablet, Refills 1, Maintenance, 06/18/22 14:04:00 EDT, Route to Pharmacy Electronically, [facility] #[id number], 165, cm, 06/18/22 13:19:00 EDT, Height, 88.9, kg, 02/09/22 15:14:00 EDT, Dry Weight Start Date: 06/18/22 Stop Date: 09/16/22 Status: Ordered Fiy-gii-ecomj medical-grade oxford diabetic shoes, depth or hightop Qfa-vji-lctmi medical-grade oxford diabetic shoes, depth or hightop, [...] Refills, Maintenance, 12/18/21 15:48:00 EDT, EC Capsule, [facility] #[id number], 165, cm, 10/29/21 12:16:00 EST,... Start Date: 12/18/21 Status: Ordered pravastatin 80 mg oral tablet 1 tablet, By Mouth, Daily, # 90 tablet, 1 Refills, Maintenance, 06/27/22 12:04:00 EDT, [facility], STORE #[id number], 165, cm, 06/18/22 13:19:00 EDT, Height, 88.9, kg, 02/09/22 15:14:00 EDT, Dry Weight Start Date: 06/27/22 Status: Ordered Premarin Vaginal 0.625 mg/gm cream with applicator See Instructions, APPLY 1/2 GRAM IN THE VAGINA EVERY WEDNESDAY AND WEDNESDAY, # 30 Gm, 11 Refills, Maintenance, 05/11/22 14:58:00 EDT, [facility], STORE #[id number], 30, APPLY 1/2 GRAM IN THE VAGINA [...] 4, 5, 6, 7 Confirmed 08/09/06 Active *[id number] Food Assembler Kitchen Francis Caity Confirmed Active Varicose vein Confirmed [...] Team Personnel Name: Haley Gonzalez RN Position: [facility] RN Member Role: Primary Care Nurse Name: Jessica Perrin MD Position: [facility] Primary Care Physician Member Role: PCP Address: Address: [address] [place] [address]- Care Team Related Persons Name: SANDY BOYCE Address: home [address] [place] [address] Name: COLT BOYCE Address: home [address] [place] [address]
--- OUTSIDE RECORDS SUMMARY | 2024-07-06 12:06 | XMS_ITS | Continuity of Care Document ---
Author Organization [facility] Address [address] [place] [address]- Care Team Providers Care Belt Lacer Name Role Phone Marychuy MCCLAIN, Jessica Primary Care Physician [facility] Date(s): 12/07/22 - 01/06/23 [facility]/[place] [address]- [place] Allergies, Adverse Reactions, Alerts Substance Reaction [...] Vaccine Date Status Refusal Reason SARS-CoV-2 mRNA (ljeeofm-mran-axnxe) vax 02/17/22 Given influenza virus vaccine, inactivated [...] tablet, 11 Refills, Maintenance, 05/13/22 11:27:00 EDT, [facility] #[id number], Partial fill upon cherelle... Start Date: 05/13/22 Status: Ordered albuterol 0.083% inhalation solution 3 mL = 2.5 mg, Inhalation, Every 6 hours, # 25 each, 5 Refills, Maintenance, 08/12/22 15:02:00 EST,[facility] #[id number], 165, cm, 06/18/22 13:19:00 EDT, Height, 88.9, kg, 02/09/22 15:14:00 EDT, Dry Weight Start Date: 08/12/22 Stop Date: 02/08/23 Status: Ordered apixaban 5 mg oral tablet 1 tablet = 5 mg, By Mouth, 2 times a day, # 180 tablet, 0 Refills, Maintenance, 12/16/22 16:34:00 EDT, Tablet, [facility] ST[facility] #[id number], Partial fill upon patient request if the prescription is for a schedule II opioid drug., 163, cm, 12/16/22 7:58... Start Date: 12/16/22 Stop Date: 03/16/23 Status: Ordered budesonide 0.5 mg/2 mL inhalation suspension 0.5 mg, 2, mL, Neb, 2 times a day, # 120 mL, Refills 11, Tot. Refills 11, Maintenance, 10/16/22 16:58:00 EST, Suspension, Route to Pharmacy Electronically, [id number], [facility] #[id number], 163, cm, 10/16/22 16:21:00 E... Start Date: 10/16/22 Status: Ordered budesonide 0.5 mg/2 mL inhalation suspension 0.5 mg, 2, mL, Neb, 2 times a day, # 120 mL, Refills 11, Tot. Refills 11, Maintenance, 08/13/22 15:24:00 EST, Suspension, Route to Pharmacy Electronically, [id number], [facility] #[id number], 165, cm, 06/18/22 13:19:00 E... Start Date: 08/13/22 Status: Ordered calcium (as citrate)-vitamin D 315 mg-250 intl units oral tablet 2 tablet, By Mouth, 2 times a day, # 360 tablet, 0 Refills, Maintenance, 12/07/22 14:46:00 EDT, [facility] #[id number], 90, 2 tablet By Mouth 2 times a day, 163, cm, 11/05/22 16:59:00 EST, Height, 90, kg, 11/05/22 16:59:00 EST, Dry Weight Start Date: 12/07/22 Status: Ordered citalopram 20 mg oral tablet 20 mg, 1, tablet, By Mouth, Daily, # 90 tablet, Refills 3, Tot. Refills 3, Maintenance, 07/08/22 14:31:00 EDT, Route to Pharmacy Electronically, [facility] #[id number], is awared of interaction w nicky, 165, cm, 06/18/22 13:19:00 EDT, He... Start Date: 07/08/22 Status: Ordered Clarinex 5 mg oral tablet 1 tablet = 5 mg, By Mouth, Daily, # 90 tablet, 3 Refills, Maintenance, 04/29/22 12:53:00 EDT, Tablet, [facility] #[id number], 165, cm, 02/23/22 14:24:00 EDT, Height, 88.9, [...] 0 Refills, Soft Stop, 10/22/21 10:11:00 EST, [facility] #[id number], 165, cm, 10/22/21 9:05:00 EST, Height, 89.5, kg, 04/23/2121:43:00 EDT, Dry Weight Start Date: 10/22/21 Status: Ordered fluticasone 50 mcg/inh nasal spray See Instructions, SPRAY 2 TIMES IN EACH NOSTRILS EVERY DAY. NEEDED FOR ALLERGY SEASON. WHEN SPRAYING KEEP HEAD DOWN, # 16 Gm, 11 Refills, 02/17/22 13:14:00 EDT, [facility] #[id number], 30, SPRAY 2 TIMES IN EACH NOSTRILS EVERY DAY. NEEDED FO... Start Date: 02/17/22 Status: Ordered formoterol 10 mcg/mL inhalation solution 2 mL = 20 mcg, Inhalation, 2 times a day, using a continuous flow nebulizer, # 120 mL, 11 Refills, Maintenance, 10/16/22 16:58:00 EST, Solution, [facility] #[id number], Partial fill upon patientrequest if the prescription [...] 11/05/22 17:53:00 EST, Route to Pharmacy Electronically, [facility] #[id number], Partial fill upon patient request if the prescription is for a schedule II opi... Start Date: 11/05/22 Stop Date: 11/10/22 Status: Ordered gabapentin 300 mg oral capsule 300 mg, 1, capsule, By Mouth, 2 times a day, PRN, # 20 capsule, Refills 0, Tot. Refills 0, Maintenance, Pain , Severe, 11/05/22 17:53:00 EST, Route to Pharmacy Electronically, [facility] #[id number], Partial fill upon patient request if the presc... Start Date: 11/05/22 Stop Date: 11/15/22 Status: Ordered hydrALAZINE 25 mg oral tablet 25 mg, 1, tablet, By Mouth, 3 times a day, discontinue hydralazine 10mg, # 90 tablet, Refills 11, Tot. Refills 11, Maintenance, 06/18/22 13:56:00 EDT, Route to Pharmacy Electronically, [facility] #[id number], Partial fill upon patient request if... Start [...] 01/16/23 14:39:00 EDT, 12/28/22 14:38:00 EDT, Cream, [facility] #[id number], Partial fill upon patient request if the prescription is for a schedule II opioid drug., 1 application... Start Date: 12/28/22 Stop Date: 01/16/23 Status: Ordered levothyroxine 0.05 mg oral tablet 1 tablet, By Mouth, Daily, # 30 tablet, 11 Refills, Maintenance, 09/30/22 12:56:00 EST, [facility] #[id number], 163, cm, 09/30/22 11:48:00 EST, Height, 92.8, kg, 09/24/22 22:19:00 EST, Dry Weight Start Date: 09/30/22 Status: Ordered lisinopril 40 mg oral tablet 1 tablet = 40 mg, By Mouth, 2 times a day, increase dose discontinue HCTZ 12.5mg, # 60 tablet, 11 Refills, Maintenance, 09/30/22 12:54:00 EST, Tablet, [facility] #[id number], 163, cm, 09/30/22 11:48:00 EST, Height, 92.8, kg, 09/24/22 22:19:00... Start Date: 09/30/22 Stop Date: 09/25/23 Status: Ordered Matzim LA 360 mg/24 hours oral tablet, extended release 1 tablet, By Mouth, Daily, # 90 tablet, 3 Refills, 02/17/22 13:08:00 EDT, [facility] #[id number], 165, cm, 02/17/22 12:49:00 EDT, Height, 88.9, kg, 02/09/22 15:14:00 EDT, Dry Weight Start Date: 02/17/22 Status: Ordered metFORMIN 500 mg oral tablet, extended release 1 tablet = 500 mg, By Mouth, Daily in AM, discontinue metformin 500mg with meal, # 30 tablet, 11 Refills, Maintenance, 09/30/22 12:51:00 EST, ER Tablet, [facility] #[id number], 163, cm, 09/30/2310:48:00 EST, Height, 92.8, kg, 09/24/22 22:1... Start Date: 09/30/22 Status: Ordered mirtazapine 15 mg oral tablet 0.5 tablet, By Mouth, Daily at bedtime, DECREASED DOSE, # 45 tablet, 1 Refills, Maintenance, 10/20/22 20:06:00 EST, [facility] #[id number], 163, cm, 10/16/22 16:21:00 EST, Height, 92.8, kg, 09/24/22 22:19:00 EST, Dry Weight Start Date: 10/20/22 Status: Ordered montelukast 10 mg oral tablet 1, tablet, By Mouth, Daily at bedtime, SUPPLY., # 90 tablet, Refills 1, Tot. Refills 1, Maintenance, 12/07/22 14:50:00 EDT, Route to Pharmacy Electronically, [facility] #[id number], 163, cm, 11/05/22 16:59:00 EST, Height, 90, kg, 11/05/22 16:59:0... Start Date: 12/07/22 Stop Date: 06/05/23 Status: Ordered Wgx-jmg-xynuh medical-grade oxford diabetic shoes, depth or hightop Ovy-lzx-opnsr medical-grade oxford diabetic shoes, depth or hightop, [...] Refills, Maintenance, 12/07/22 14:49:00 EDT, EC Capsule, [facility] #[id number], 163, cm, 11/05/22 16:59:00 EST,... Start Date: 12/07/22 Status: Ordered pravastatin 80 mg oral tablet 1 tablet, By Mouth, Daily, # 90 tablet, 1 Refills, Maintenance, 12/07/22 14:47:00 EDT, [facility] #[id number], 163, cm, 11/05/22 16:59:00 EST, Height, 90, kg, 11/05/22 16:59:00 EST, Dry Weight Start Date: 12/07/22 Status: Ordered Premarin Vaginal 0.625 mg/gm cream with applicator See Instructions, APPLY 1/2 GRAM IN THE VAGINA EVERY WEDNESDAY AND WEDNESDAY, # 30 Gm, 11 Refills, Maintenance, 05/11/22 14:58:00 EDT, [facility] #[id number], 30, APPLY 1/2 GRAM IN THE VAGINA EVERY WEDNESDAY AND WEDNESDAY, 165, cm, 02/23/22 14:24:00 EDT,... Start Date: 05/11/22 Status: Ordered ProAir HFA 90 mcg/inh inhalation aerosol with adapter 2, puffs, Inhalation, 4 times a day, PRN, # 1 each, Refills 11, Tot. Refills 11, Maintenance, 10/16/22 17:00:00 EST, Route to Pharmacy Electronically, [id number], [facility] #[id number], 163, cm, 10/16/22 16:21:00 EST, H... Start [...] 4, 5, 6, 7 Confirmed 08/09/06 Active [id number] Anodic Treater Yee Ceballos Confirmed Active Varicose vein Confirmed [...] Team Personnel Name: Haley Gonzalez RN Position: [facility] RN Member Role: Primary Care Nurse Name: Jessica Perrin MD Position: [facility] Primary Care Physician Member Role: PCP Address: Address: [address] [place] [address]- Care Team Related Persons Name: SANDY BOYCE Address: home [address] [place] [address] Name: COLT BOYCE Address: [place] [address] [place] [address]
--- OUTSIDE RECORDS SUMMARY | 2024-07-06 12:06 | XMS_ITS | Continuity of Care Document ---
Author Organization [facility] Address [address] [place] [address]- Care Team Providers Care Senior Software Development Engineer Name Role Phone Marychuy MCCLAIN, Jessica Primary Care Physician [facility] Date[facility]s): 03/24/23 - 04/23/23 [facility]/[place] [address]- Attending Physician: AdmtrDominik Allergies, Adverse Reactions, Alerts [...] and Recorded Vaccine Date Status Refusal Reason [id number] 12y+ bivalent booster vax 03/24/23 Given [id number] 12y+ bivalent booster vax 07/28/22 Recorded influenza virus vaccine, inactivated 07/28/22 Brian rded [...] vaccine, inactivated 5 07/29/06 Gi javon SARS-CoV-2 mRNA (mouofrk-yabz-tpjpx) vax 02/17/22 Given SARS-CoV-2 (COVID-19) mRNA BNT-162b2 [...] tablet, 11 Refills, Maintenance, 03/24/23 10:28:00 EDT, [facility] #[id number], 160, cm, 03/24/23 10:19:00 EDT, Height, 89.54, kg, 0... Start Date: 03/24/23 Status: Ordered albuterol 0.083% inhalation solution 3 mL = 2.5 mg, Inhalation, Every 6 hours, # 25 each, 5 Refills, Maintenance, 08/12/22 15:02:00 EST,[facility] #[id number], 165, cm, 06/18/22 13:19:00 EDT, Height, 88.9, [...] 16:58:00 EST, Suspension, Route to Pharmacy Electronically, [id number], [facility] #[id number], 163, cm, 10/16/22 16:21:00 E... Start Date: 10/16/22 Status: Ordered calcium (as citrate)-vitamin D 315 mg-250 intl units oral tablet 2 tablet, By Mouth, 2 times a day, # 360 tablet, 3 Refills, Maintenance, 03/24/23 10:33:00 EDT, [facility] #[id number], 2 tablet By Mouth 2 times a day,x90 days, 160, cm, 03/24/23 10:19:00 EDT, Height, 89.54, kg, 02/09/23 16:45:00 EDT, Dry Weight Start Date: 03/24/23 Stop Date: 03/18/24 Status: Ordered ciclopirox 8% topical solution 1 application, Topically, Daily, as directed to affected area toenails, # 6.6 mL, 11 Refills, Maintenance, 03/24/23 10:42:00 EDT, Solution, [facility] #[id number], ., 1 application Topically Daily,Instr:as directed; to affected area toenails, 16... Start Date: 03/24/23 Status: Ordered citalopram 20 mg oral tablet 20 mg, 1, tablet, By Mouth, Daily, # 90 tablet, Refills 3, Tot. Refills 3, Maintenance, 03/24/23 10:23:00 EDT, Route to Pharmacy Electronically, [facility] #[id number] is awared of interaction w nicky, 160, cm, 03/24/23 10:19:00 EDT, He... Start Date: 03/24/23 Status: Ordered Clarinex 5 mg oral tablet 1 tablet = 5 mg, By Mouth, Daily, # 90 tablet, 3 Refills, Maintenance, 03/24/23 10:23:00 EDT, Tablet, [facility] #[id number], 160, cm, 03/24/23 10:19:00 EDT, Height, 89.54, [...] tablet, 3 Refills, Maintenance, 03/24/23 10:04:00 EDT, [facility] #[id number], 160, cm, 03/24/23 9:26:00 EDT, Height, 89.54, kg, 02/09/23 16:45:00 EDT, Dry Weight Start Date: 03/24/23 Status: Ordered EPINEPHrine 0.3 mg injectable solution = 0.3 mg, Intramuscular, Once, PRN Anaphylactic Reaction, # 1 each, 0 Refills, Soft Stop, 10/22/21 10:11:00 EST, [facility] #[id number], 165, cm, 10/22/21 9:05:00 EST, Height, 89.5, kg, 04/23/2121:43:00 EDT, Dry Weight Start Date: 10/22/21 Status: Ordered fluticasone 50 mcg/inh nasal spray 2 sprays, Nares, Both, Daily, Use every day during allergy season. While using spray keep head down., # 3 each, 3 Refills, Maintenance, 03/24/23 10:28:00 EDT, [facility] #[id number], ., 2 spraysNares, Both Daily,x90 days,Instr:Use every day duri... Start Date: 03/24/23 Stop Date: 03/18/24 Status: Ordered formoterol 10 mcg/mL inhalation solution 2 mL = 20 mcg, Inhalation, 2 times a day, using a continuous flow nebulizer, # 120 mL, 11 Refills, Maintenance, 10/16/22 16:58:00 EST, Solution, [facility] #[id number], Partial fill upon patientrequest if the prescription [...] Replace Required Details, [facility], [facility] Start Date: 03/24/23 Status: Ordered Lancets See Instructions, # 50 each, Refills 11, Tot. Refills 11, Maintenance, use daily for blood sugar testing once a day Dx DM type 2 E11.9 One Touch Delica, DM type 2, 03/24/23 9:56:00 EDT, Compound, 160, cm, 03/24/23 9:26:00 EDT, Height, 89.54, kg, 05... Start Date: 03/24/23 Status: Ordered levothyroxine 0.05 mg oral tablet 1 tablet, By Mouth, Daily, # 90 tablet, 3 Refills, Maintenance, 03/24/23 10:31:00 EDT, [facility] #[id number], 160, cm, 03/24/23 10:19:00 EDT, Height, 89.54, kg, 02/09/23 16:45:00 EDT, Dry Weight Start Date: 03/24/23 Stop Date: 03/18/24 Status: Ordered lisinopril 40 mg oral tablet 1 tablet = 40 mg, By Mouth, Daily in AM, 11 AM Decreased dose, # 90 tablet, 3 Refills, Maintenance,03/24/23 10:12:00 EDT, Tablet, [facility] #[id number], 160, cm, 03/24/23 9:26:00 EDT, Height, 89.54, kg, 02/09/23 16:45:00 EDT, Dry Weight Start Date: 03/24/23 Stop Date: 03/18/24 Status: Ordered Matzim LA 180 mg/24 hours oral tablet, extended release 1 tablet = 180 mg, By Mouth, Daily in AM, Discontinue diltiazem 360 mg Takes at 11 AM, # 90 tablet,3 Refills, Maintenance, 03/24/23 9:58:00 EDT, ER Tablet, [facility] #[id number], 160, cm, 03/24/23 9:26:00 EDT, Height, 89.54, kg, 02/09/23 16:45... Start Date: 03/24/23 Stop Date: 03/18/24 Status: Ordered metFORMIN 500 mg oral tablet, extended release 1 tablet = 500 mg, By Mouth, 2 times a day, with meal Increase dose, # 180 tablet, 3 Refills, Maintenance, 03/24/23 10:19:00 EDT, ER Tablet, [facility] #[id number], 160, cm, 03/24/23 10:19:00 EDT, Height, 89.54, kg, 02/09/23 16:45:00 EDT, Dry W... Start Date: 03/24/23 Stop Date: 03/18/24 Status: Ordered mirtazapine 15 mg oral tablet 0.5 tablet, By Mouth, Daily at bedtime, # 45 tablet, 3 Refills, Maintenance, 03/24/23 10:22:00 EDT,[facility] #[id number], 160, cm, 03/24/23 10:19:00 EDT, Height, 89.54, kg, 02/09/23 16:45:00 EDT, Dry Weight Start Date: 03/24/23 Stop Date: 03/18/24 Status: Ordered montelukast 10 mg oral tablet 1, tablet, By Mouth, Daily at bedtime, SUPPLY., # 90 tablet, Refills 3, Tot. Refills 3, Maintenance, 06/05/23 14:50:00 EDT, Route to Pharmacy Electronically, [facility] #[id number], 160, cm, 03/24/23 10:19:00 EDT, Height, 89.54, kg, 02/09/23 16:4... Start Date: 06/05/23 Status: Ordered Jql-azq-nemqu medical-grade oxford diabetic shoes, depth or hightop Dfz-avo-ebvls medical-grade oxford diabetic shoes, depth or hightop, [...] capsule, 3 Refills, Maintenance, 03/24/23 10:28:00 EDT, [facility] #[id number], 160, cm, 03/24/23 10:19:00 EDT, Height, 89.54, kg, 0... Start Date: 03/24/23 Stop Date: 03/18/24 Status: Ordered pravastatin 80 mg oral tablet 1 tablet, By Mouth, Daily, # 90 tablet, 3 Refills, Maintenance, 03/24/23 10:32:00 EDT, [facility] #[id number], 160, cm, 03/24/23 10:19:00 EDT, Height, 89.54, kg, 02/09/23 16:45:00 EDT, Dry Weight Start Date: 03/24/23 Stop Date: 03/18/24 Status: Ordered Premarin Vaginal 0.625 mg/gm cream with applicator See Instructions, APPLY 1/2 GRAM IN THE VAGINA EVERY WEDNESDAY AND WEDNESDAY, # 30 Gm, 11 Refills, Maintenance, 03/24/23 10:23:00 EDT, [facility] #[id number], 30, APPLY 1/2 GRAM IN THE VAGINA EVERY WEDNESDAY AND WEDNESDAY, 160, cm, 03/24/23 10:19:00 EDT,... Start Date: 03/24/23 Status: Ordered ProAir HFA 90 mcg/inh inhalation aerosol with adapter 2, puffs, Inhalation, 4 times a day, PRN, Fill when patient request it, # 1 each, Refills 5, Tot. Refills 5, Maintenance, 03/24/23 10:30:00 EDT, Route to Pharmacy Electronically, [id number], [facility] #[id number], 160,... Start Date: 03/24/23 Status: Ordered Shoes [...] in AM, at 11 AM Given by cream ripener, Dr. 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
--- OUTSIDE RECORDS SUMMARY | 2024-07-06 12:06 | XMS_ITS | Continuity of Care Document ---
Author Organization [facility] Address Unknown Care Team Providers Care Admissions Nurse Name Role Phone Jessica Perrin MD Primary Care Physician [place] [facility] [place](s): 10/02/21 - 11/21/21 [facility] Attending Physician: Jessica Perrin MD Admitting Physician: Jessica Perrin MD Allergies, Adverse Reactions, [...] 03/10/21 15:25:00 EDT, Route to Pharmacy Electronically, [facility] #[id number], 165, cm, 12/25/20 10:00:00 EDT, Height, 88, kg, 11/03/19 18:19:00... Start Date: 03/10/21 Status: Ordered calcium (as citrate)-vitamin D 315 mg-250 intl units oral tablet 2 tablet, By Mouth, 2 times a day, Tej, # 360 tablet, 3 Refills, Maintenance, 03/26/21 13:03:00 EDT, Tablet, [facility] #[id number], 2 tablet By Mouth 2 times a day,x90 days,Instr:Tej, 165, cm, 03/26/21 11:57:00 EDT, Height, 88, kg, 11/03/19 18... Start Date: 03/26/21 Stop Date: 03/21/22 Status: Ordered celecoxib 100 mg oral capsule 1 capsule = 100 mg, By Mouth, 2 times a day, PRN knee pain, # 60 capsule, 5 Refills, Maintenance, 10/22/21 10:44:00 EST, Capsule, [facility] #[id number], 165, cm, 10/22/21 9:05:00 EST, Height, 89.5, kg, 04/23/21 21:43:00 EDT, Dry Weight Start Date: 10/22/21 Status: Ordered citalopram 20 mg oral tablet 20 mg, 1, tablet, By Mouth, Daily, # 90 tablet, Refills 3, Tot. Refills 3, Maintenance, 07/12/21 18:12:00 EDT, Route to Pharmacy Electronically, [facility] #[id number], is awared of interaction w nicky, 165, cm, 04/23/21 21:43:00 EDT, He... Start Date: 07/12/21 Status: Ordered Clarinex 5 mg oral tablet 1 tablet = 5 mg, By Mouth, Daily, Discontinue loratadine, # 30 tablet, 11 Refills, Maintenance, 03/26/21 13:02:00 EDT, Tablet, [facility] #[id number], 165, cm, 03/26/21 11:57:00 EDT, Height, 88,kg, 11/03/19 18:19:00 EST, Dry Weight Start Date: 03/26/21 Status: Ordered Colace sodium 100 mg oral capsule 100 mg, 1, capsule, By Mouth, 2 times a day, PRN, with plenty of water, # 180 capsule, Refills 3, Tot. Refills 3, Maintenance, as needed for constipation, 03/26/21 13:05:00 EDT, Route to Pharmacy Electronically, [facility] #[id number], Dispense o... Start Date: 03/26/21 Status: Ordered [...] tablet, 0 Refills, Maintenance, 09/30/21 16:04:00 EST, [facility] #[id number], 165, cm, 04/23/21 21:43:00 EDT, Height, 89.5, kg, 04/23/21 21:43:00 EDT, Dry Weight Start Date: 09/30/21 Status: Ordered EPINEPHrine 0.3 mg injectable solution = 0.3 mg, Intramuscular, Once, PRN Anaphylactic Reaction, # 1 each, 0 Refills, Soft Stop, 10/22/21 10:11:00 EST, [facility] #[id number], 165, cm, 10/22/21 9:05:00 EST, Height, 89.5, kg, 04/23/2121:43:00 EDT, Dry Weight Start Date: 10/22/21 Status: Ordered fluticasone 50 mcg/inh nasal spray 2 sprays, Nares, Both, Daily, Use every day during allergy season. While using spray keep head down. 30 days not 90 days dispense when patient requested by patient, # 16 Gm, 5 Refills, Maintenance, 07/07/21 7:57:00 EDT, [facility] #054... Start Date: 07/07/21 Status: Ordered hydrALAZINE 10 mg oral tablet 1, tablet, By Mouth, 3 times a day, Increase dose, # 90 tablet, Refills 11, Tot. Refills 11, 10/22/21 10:40:00 EST, Route to Pharmacy Electronically, [facility] #[id number], 165, cm, 10/22/21 9:05:00 EST, Height, 89.5, kg, 04/23/21 21:43:00 EDT,... Start Date: 10/22/21 Status: Ordered hydrochlorothiazide 12.5 mg oral tablet 1 tablet = 12.5 mg, By Mouth, Daily, discontinue HCTZ/lisinopril 25mg /20mg, # 30 tablet, 11 Refills, Maintenance, 10/29/21 13:48:00 EST, Tablet, [facility] #[id number], 165, cm, 10/29/21 12:16:00 EST, Height, 89.5, [...] Mouth, Daily, # 90 tablet, 1 Refills, [facility] #[id number], 165, cm, 10/29/21 12:16:00 EST, Height, 89.5, kg, 04/23/21 21:43:00 EDT, Dry Weight Start Date: 11/20/21 Status: Ordered lidocaine 5% topical film 1-3 patch, Topically, Daily, Apply patch in affected area. Remove patch(s) after 12 hours. Can reapply after resting 12 hours. Indication: diabetic neuropathy, # 30 patch, 11 Refills, Maintenance, 10/22/21 10:39:00 EST, [facility] #[id number]... Start Date: 10/22/21 Status: Ordered lisinopril 40 mg oral tablet 1 tablet = 40 mg, By Mouth, Daily, discontinue HCTZ/lisinopril 25mg /20mg, # 30 tablet, 11 Refills,Maintenance, 10/29/21 13:47:00 EST, Tablet, [facility] #[id number], Partial fill upon patient request if the prescription is for a schedule II op... Start Date: 10/29/21 Status: Ordered metFORMIN 500 mg oral tablet 1 tablet, By Mouth, 2 times a day, # 180 tablet, 3 Refills, Maintenance, 10/13/21 14:33:00 EST, [facility] #50714, 165, cm, 04/23/21 21:43:00 EDT, Height, 89.5, kg, 04/23/21 21:43:00 EDT, Dry Weight Start Date: 10/13/21 Status: Ordered Ret-pni-unmiq medical-grade oxford diabetic shoes, depth or hightop Mcs-hlc-gtplg medical-grade oxford diabetic shoes, depth or hightop, [...] Gm, 11 Refills, Maintenance, 10/22/21 10:43:00 EST, [facility] #[id number], Partial fill upon patient request if the prescription is for a schedule II o... Start Date: 10/22/21 Status: Ordered pravastatin 80 mg oral tablet 1 tablet = 80 mg, By Mouth, Daily, 90 days, # 90 tablet, 3 Refills, Maintenance, 12/25/20 11:15:00 EDT, Tablet, [facility] #86507, 165, cm, 12/25/20 10:00:00 EDT, Height, 88, kg, 11/03/19 18:19:00 EST, Dry Weight Start Date: 12/25/20 Status: Ordered Premarin Vaginal 0.625 mg/gm cream with applicator = 0.5 Gm, Vaginally, Every Wednesday and , # 42.5 Gm, 11 Refills, Maintenance, 03/26/21 13:01:00 EDT, [facility] #[id number], 0.5 Gm Vaginally Every Wednesday and , 165, cm, 03/26/21 11:57:00 EDT, Height, 88, kg, 11/03/19 18:19:00 EST,... Start Date: 03/26/21 Status: Ordered PriLOSEC OTC 20 mg oral delayed release tablet 1 tablet = 20 mg, By Mouth, Daily, Take 30 mins before breakfast, # 90 tablet, 2 Refills, Maintenance, 04/08/21 10:07:00 EDT, [facility] #[id number], MD is awared of interaction with citalopram;Duplicate rx; original sent 12/25/20. Remaining r... Start Date: 04/08/21 Status: Ordered Remeron 15 mg oral tablet 0.5 tablet = 7.5 mg, By Mouth, Daily at bedtime, Decreased dose, # 45 tablet, 3 Refills, Maintenance, 03/26/21 13:13:00 EDT, Tablet, [facility] #85035, 165, cm, 03/26/21 11:57:00 EDT, Height, 88, [...] 12/25/20 11:14:00 EDT, Route to Pharmacy Electronically, [facility] #[id number], 165, cm, 12/25/20 10:00:00 EDT, Height, 88, [...] 11 Refills, Maintenance, 10/22/21 10:44:00 EST, Capsule, [facility] #47710, ., 165, cm, 10/22/21 9:05:00 EST, Height, 89.5, kg, 04/23/21 21:43:00 EDT, Dry Weight Start Date: 10/22/21 Status: Ordered Ventolin HFA 108 mcg/inh inhalation aerosol with adapter 2 puffs, Inhalation, 4 times a day, PRN Wheezing/Shortness of Breath, as directed 15 minutes beforeexercise 30 days not 90 days dispense when patient request it, # 8.5 Gm, 5 Refills, Maintenance, 03/26/21 13:06:00 EDT, [facility] #[id number]... 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
--- OUTSIDE RECORDS SUMMARY | 2024-07-06 12:06 | XMS_ITS | Continuity of Care Document ---
Author Organization [facility] Address Unknown Care Team Providers Care Church History Professor Name Role Phone Marychuy MCCLAIN, Jessica Primary Care Physician Encounter [facility] [place] Date(s): 04/08/21 - 05/08/21 [facility] Allergies, Adverse Reactions, Alerts Substance Reaction Severity [...] 03/10/21 15:25:00 EDT, Route to Pharmacy Electronically, [facility] #[id number], 165, cm, 12/25/20 10:00:00 EDT, Height, 88, kg, 11/03/19 18:19:00... Start Date: 03/10/21 Status: Ordered calcium (as citrate)-vitamin D 315 mg-250 intl units oral tablet 2 tablet, By Mouth, 2 times a day, Tej, # 360 tablet, 3 Refills, Maintenance, 03/26/21 13:03:00 EDT, Tablet, [facility] #[id number], 2 tablet By Mouth 2 times a [...] 5 Refills, Maintenance, 03/26/21 13:08:00 EDT, Capsule, [facility] #[id number], 165, cm, 03/26/21 11:57:00 EDT, Height, 88, [...] 07/01/20 17:44:00 EDT, Route to Pharmacy Electronically, [facility] #[id number] is awared of interaction w nicky, 165, cm, 11/03/19 18:19:00 EST, He... Start Date: 07/01/20 Status: Ordered Clarinex 5 mg oral tablet 1 tablet = 5 mg, By Mouth, Daily, Discontinue loratadine, # 30 tablet, 11 Refills, Maintenance, 03/26/21 13:02:00 EDT, Tablet, [facility] #31271, 165, cm, 03/26/21 11:57:00 EDT, Height, 88,kg, 11/03/19 18:19:00 EST, Dry Weight Start Date: 03/26/21 Status: Ordered Colace sodium 100 mg oral capsule 100 mg, 1, capsule, By Mouth, 2 times a day, PRN, with plenty of water, # 180 capsule, Refills 3, Tot. Refills 3, Maintenance, as needed for constipation, 03/26/21 13:05:00 EDT, Route to Pharmacy Electronically, [facility] #[id number], Dispense o... Start Date: 03/26/21 Status: Ordered [...] tablet, 3 Refills, Maintenance, 09/05/20 9:01:00 EST, [facility] #[id number], 165, cm, 11/03/19 18:19:00 EST, Height, 88, kg, 11/03/19 18:19:00 EST, Dry Weight Start Date: 09/05/20 Status: Ordered Dulera 200 mcg-5 mcg/inh inhalation aerosol 2 puffs, Inhalation, 2 times a day, # 13 Gm, 11 Refills, Maintenance, 11/28/20 16:21:00 EST, Aerosol, [facility] #[id number], 2 puffs Inhalation 2 times a day, 165, cm, 11/03/19 18:19:00 EST, Height, 88, kg, 11/03/19 18:19:00 EST, Dry Weight Start Date: 08/10/20 Status: Ordered EPINEPHrine 0.3 mg injectable solution = 0.3 mg, Intramuscular, Once, PRN Anaphylactic Reaction, # 1 each, 0 Refills, Soft Stop, 06/26/20 8:38:00 EDT, [facility] #[id number], 165, cm, 11/03/19 18:19:00 EST, Height, 88, kg, 11/03/19 18:19:00 EST, Dry Weight Start Date: 06/26/20 Status: Ordered fluticasone 50 mcg/inh nasal spray 1 sprays, Nares, Both, 2 times a day, 0 Refills, Maintenance, 04/28/21 2:37:00 EDT, [place], Partial fill upon patient request if the prescription is for a schedule II opioid drug. Start Date: 04/28/21 Status: Ordered fluticasone 50 mcg/inh nasal spray 2 sprays, Nares, Both, Daily, Use every day during allergy season. While using spray keep head down. 30 days not 90 days dispense when patient requested by patient, # 16 Gm, 5 Refills, Maintenance, 12/30/20 15:00:00 EDT, [facility] #05... Start Date: 12/30/20 Status: Ordered hydrALAZINE [...] 06/26/20 8:44:00 EDT, Route to Pharmacy Electronically, [facility] #[id number], 165, cm, 11/03/19 18:19:00 EST, Height, 88, kg, 11/03/... Start Date: 06/26/20 Stop Date: 06/21/21 Status: Ordered hydrochlorothiazide-lisinopril 25 mg-20 mg oral tablet 1 tablet, By Mouth, Daily, # 90 tablet, 3 Refills, Maintenance, 12/25/20 11:11:00 EDT, Tablet, [facility] #98195, 90 days, 1 tablet By Mouth Daily, [...] tablet, 1 Refills, Maintenance, 03/04/21 10:16:00 EDT, [facility] #[id number], 165, cm, 12/25/20 10:00:00 EDT, Height, 88, [...] tablet, 3 Refills, Maintenance, 09/16/20 17:27:00 EST, [facility] #77273, 165, cm, 11/03/19 18:19:00 EST, Height, 88, [...] Start Date: 04/28/21 Status: Ordered nystatin topical 264625 u/gm powder 1 application, Topically, 2 times a day, # 60 Gm, 1 Refills, Maintenance, 03/26/21 13:25:00 EDT, Powder, [facility] #88021, Partial fill upon patient request if the prescription is for a schedule II opioid drug., 1 application Topically 2 ti... Start Date: 03/26/21 Status: Ordered Nystop 627089 u/gm powder 1 application, Topically, 2 times a day, # 60 Gm, 0 Refills, Maintenance, 04/28/21 2:38:00 EDT, Pow[place], Partial fill upon patient request if the prescription is for a schedule II opioid drug. Start Date: 04/28/21 Status: Ordered Fjv-qwb-xzcwf medical-grade oxford diabetic shoes, depth or hightop Pvl-lxy-reqgs medical-grade oxford diabetic shoes, depth or hightop, [...] opioid drug. Start Date: 04/28/21 Status: Ordered pravastatin 80 mg oral tablet 1 tablet = 80 mg, By Mouth, Daily, 90 days, # 90 tablet, 3 Refills, Maintenance, 12/25/20 11:15:00 EDT, Tablet, [facility] #09847, 165, cm, 12/25/20 10:00:00 EDT, Height, 88, [...] Gm, 11 Refills, Maintenance, 03/26/21 13:01:00 EDT, [facility] #97507, 0.5 Gm Vaginally Every Wednesday and , [...] tablet, 2 Refills, Maintenance, 04/08/21 10:07:00 EDT, [facility] #57082, MD is awared of interaction with citalopram;Duplicate rx; original sent 12/25/20. Remaining r... Start Date: 04/08/21 Status: Ordered Remeron 15 mg oral tablet 0.5 tablet = 7.5 mg, By Mouth, Daily at bedtime, Decreased dose, # 45 tablet, 3 Refills, Maintenance, 03/26/21 13:13:00 EDT, Tablet, [facility] #77090, 165, cm, 03/26/21 11:57:00 EDT, Height, 88, [...] 12/25/20 11:14:00 EDT, Route to Pharmacy Electronically, [facility] #[id number], 165, cm, 12/25/20 10:00:00 EDT, Height, 88, [...] Gm, 5 Refills, Maintenance, 03/26/21 13:06:00 EDT, [facility] #[id number]... Start Date: 03/26/21 Status: [...] 9, 10, 11, 12, 13 08/09/06 Active *[id number] Care Partn er Dolores Cabrera(Confirmed) Active Prurigo nodularis(Confirmed) 08/17/08 Active Renal insufficiency(Confirmed) Active Non-insulin dependent type 2 diabetes mellitus(Confirmed) 01/24/09 Active Varicose vein(Confirmed) Active Vitamin D deficiency(Confirmed) 07/26/08 Active 1CKD Stage III. 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
--- OUTSIDE RECORDS SUMMARY | 2024-07-06 12:06 | XMS_ITS | Continuity of Care Document ---
Author Organization [facility] Address [address] [place] [address]- Care Team Providers Care Small Boat Engineer Name Role Phone Marychuy MCCLAIN, Jessica Primary Care Physician Encounter [facility] Date(s): 01/13/23 - 02/12/23 [facility] [address]- [place] Allergies, Adverse Reactions, Alerts Substance Reaction [...] virus vaccine, inactivated 5 07/29/06 Gi javon [id number] 12y+ bivalent booster vax 07/28/22 Recorded SARS-CoV-2 mRNA ([id number]) vax 02/17/22 Given SARS-CoV-2 (COVID-19) mRNA BNT-162b2 [...] tablet, 11 Refills, Maintenance, 05/13/22 11:27:00 EDT, [facility] #[id number], Partial fill upon cherelle... Start Date: 05/13/22 Status: Ordered albuterol 0.083% inhalation solution 3 mL = 2.5 mg, Inhalation, Every 6 hours, # 25 each, 5 Refills, Maintenance, 08/12/22 15:02:00 EST,[facility] #85069, 165, cm, 06/18/22 13:19:00 EDT, Height, 88.9, kg, 02/09/22 15:14:00 EDT, Dry Weight Start Date: 08/12/22 Stop Date: 02/08/23 Status: Ordered apixaban 5 mg oral tablet 1 tablet = 5 mg, By Mouth, 2 times a day, # 180 tablet, 0 Refills, Maintenance, 12/16/22 16:34:00 EDT, Tablet, [facility] #[id number], Partial fill upon patient request if the prescription is for a schedule II opioid drug., 163, cm, 12/16/22 7:58... Start Date: 12/16/22 Stop Date: 03/16/23 Status: Ordered budesonide 0.5 mg/2 mL inhalation suspension 0.5 mg, 2, mL, Neb, 2 times a day, # 120 mL, Refills 11, Tot. Refills 11, Maintenance, 10/16/22 16:58:00 EST, Suspension, Route to Pharmacy Electronically, [id number], [facility] #[id number], 163, cm, 10/16/22 16:21:00 E... Start Date: 10/16/22 Status: Ordered budesonide 0.5 mg/2 mL inhalation suspension 0.5 mg, 2, mL, Neb, 2 times a day, # 120 mL, Refills 11, Tot. Refills 11, Maintenance, 08/13/22 15:24:00 EST, Suspension, Route to Pharmacy Electronically, [id number], [facility] #[id number], 165, cm, 06/18/22 13:19:00 E... Start Date: 08/13/22 Status: Ordered calcium (as citrate)-vitamin D 315 mg-250 intl units oral tablet 2 tablet, By Mouth, 2 times a day, # 360 tablet, 0 Refills, Maintenance, 12/07/22 14:46:00 EDT, [facility] #[id number], 90, 2 tablet By Mouth 2 times a day, 163, cm, 11/05/22 16:59:00 EST, Height, 90, kg, 11/05/22 16:59:00 EST, Dry Weight Start Date: 12/07/22 Status: Ordered citalopram 20 mg oral tablet 20 mg, 1, tablet, By Mouth, Daily, # 90 tablet, Refills 3, Tot. Refills 3, Maintenance, 07/08/22 14:31:00 EDT, Route to Pharmacy Electronically, [facility] #[id number], is awared of interaction w nicky, 165, cm, 06/18/22 13:19:00 EDT, He... Start Date: 07/08/22 Status: Ordered Clarinex 5 mg oral tablet 1 tablet = 5 mg, By Mouth, Daily, # 90 tablet, 3 Refills, Maintenance, 04/29/22 12:53:00 EDT, Tablet, [facility] #[id number], 165, cm, 02/23/22 14:24:00 EDT, Height, 88.9, [...] 0 Refills, Soft Stop, 10/22/21 10:11:00 EST, [facility] #43392, 165, cm, 10/22/21 9:05:00 EST, Height, 89.5, kg, 04/23/2121:43:00 EDT, Dry Weight Start Date: 10/22/21 Status: Ordered fluticasone 50 mcg/inh nasal spray See Instructions, SPRAY 2 TIMES IN EACH NOSTRILS EVERY DAY. NEEDED FOR ALLERGY SEASON. WHEN SPRAYING KEEP HEAD DOWN, # 16 Gm, 11 Refills, 02/17/22 13:14:00 EDT, [facility] #50788, 30, SPRAY 2 TIMES IN EACH NOSTRILS EVERY DAY. NEEDED FO... Start Date: 02/17/22 Status: Ordered formoterol 10 mcg/mL inhalation solution 2 mL = 20 mcg, Inhalation, 2 times a day, using a continuous flow nebulizer, # 120 mL, 11 Refills, Maintenance, 10/16/22 16:58:00 EST, Solution, [facility] #[id number], Partial fill upon patientrequest if the prescription [...] 11/05/22 17:53:00 EST, Route to Pharmacy Electronically, [facility] #[id number], Partial fill upon patient request if the prescription is for a schedule II opi... Start Date: 11/05/22 Stop Date: 11/10/22 Status: Ordered gabapentin 300 mg oral capsule 300 mg, 1, capsule, By Mouth, 2 times a day, PRN, # 20 capsule, Refills 0, Tot. Refills 0, Maintenance, Pain , Severe, 11/05/22 17:53:00 EST, Route to Pharmacy Electronically, [facility] #40092, Partial fill upon patient request if the presc... Start Date: 11/05/22 Stop Date: 11/15/22 Status: Ordered hydrALAZINE 25 mg oral tablet 25 mg, 1, tablet, By Mouth, 3 times a day, discontinue hydralazine 10mg, # 90 tablet, Refills 11, Tot. Refills 11, Maintenance, 06/18/22 13:56:00 EDT, Route to Pharmacy Electronically, [facility] #[id number], Partial fill upon patient request if... Start [...] tablet, 11 Refills, Maintenance, 09/30/22 12:56:00 EST, [facility] #[id number], 163, cm, 09/30/22 11:48:00 EST, Height, 92.8, kg, 09/24/22 22:19:00 EST, Dry Weight Start Date: 09/30/22 Status: Ordered lisinopril 40 mg oral tablet 1 tablet = 40 mg, By Mouth, 2 times a day, increase dose discontinue HCTZ 12.5mg, # 60 tablet, 11 Refills, Maintenance, 09/30/22 12:54:00 EST, Tablet, [facility] #[id number], 163, cm, 09/30/22 11:48:00 EST, Height, 92.8, kg, 09/24/22 22:19:00... Start Date: 09/30/22 Stop Date: 09/25/23 Status: Ordered Matzim LA 360 mg/24 hours oral tablet, extended release 1 tablet, By Mouth, Daily, # 90 tablet, 3 Refills, 02/17/22 13:08:00 EDT, [facility] #[id number], 165, cm, 02/17/22 12:49:00 EDT, Height, 88.9, kg, 02/09/22 15:14:00 EDT, Dry Weight Start Date: 02/17/22 Status: Ordered metFORMIN 500 mg oral tablet, extended release 1 tablet = 500 mg, By Mouth, Daily in AM, discontinue metformin 500mg with meal, # 30 tablet, 11 Refills, Maintenance, 09/30/22 12:51:00 EST, ER Tablet, [facility] #[id number], 163, cm, 09/30/2310:48:00 EST, Height, 92.8, kg, 09/24/22 22:1... Start Date: 09/30/22 Status: Ordered mirtazapine 15 mg oral tablet 0.5 tablet, By Mouth, Daily at bedtime, DECREASED DOSE, # 45 tablet, 1 Refills, Maintenance, 10/20/22 20:06:00 EST, [facility] #[id number], 163, cm, 10/16/22 16:21:00 EST, Height, 92.8, kg, 09/24/22 22:19:00 EST, Dry Weight Start Date: 10/20/22 Status: Ordered montelukast 10 mg oral tablet 1, tablet, By Mouth, Daily at bedtime, SUPPLY., # 90 tablet, Refills 1, Tot. Refills 1, Maintenance, 12/07/22 14:50:00 EDT, Route to Pharmacy Electronically, [facility] #[id number], 163, cm, 11/05/22 16:59:00 EST, Height, 90, kg, 11/05/22 16:59:0... Start Date: 12/07/22 Stop Date: 06/05/23 Status: Ordered Hrt-loh-iotfg medical-grade oxford diabetic shoes, depth or hightop Yst-bzk-hirfs medical-grade oxford diabetic shoes, depth or hightop, [...] Refills, Maintenance, 12/07/22 14:49:00 EDT, EC Capsule, [facility] #[id number], 163, cm, 11/05/22 16:59:00 EST,... Start Date: 12/07/22 Status: Ordered pravastatin 80 mg oral tablet 1 tablet, By Mouth, Daily, # 90 tablet, 1 Refills, Maintenance, 12/07/22 14:47:00 EDT, [facility] #[id number], 163, cm, 11/05/22 16:59:00 EST, Height, 90, kg, 11/05/22 16:59:00 EST, Dry Weight Start Date: 12/07/22 Status: Ordered Premarin Vaginal 0.625 mg/gm cream with applicator See Instructions, APPLY 1/2 GRAM IN THE VAGINA EVERY WEDNESDAY AND WEDNESDAY, # 30 Gm, 11 Refills, Maintenance, 05/11/22 14:58:00 EDT, [facility] #[id number], 30, APPLY 1/2 GRAM IN THE VAGINA EVERY WEDNESDAY AND WEDNESDAY, 165, cm, 02/23/22 14:24:00 EDT,... Start Date: 05/11/22 Status: Ordered ProAir HFA 90 mcg/inh inhalation aerosol with adapter 2, puffs, Inhalation, 4 times a day, PRN, # 1 each, Refills 11, Tot. Refills 11, Maintenance, 10/16/22 17:00:00 EST, Route to Pharmacy Electronically, [id number], [facility] #[id number], 163, cm, 10/16/22 16:21:00 EST, H... Start [...] day, PRN itching Apply to lower extremities Gambian, # 30 Gm, 0Refills, Maintenance, 01/07/23 14:27:00 EDT, [facility], Partial fill upon [...] 4, 5, 6, 7 Confirmed 08/09/06 Active *[id number] Vibration Engineer Francis Caity Confirmed Active Varicose vein Confirmed [...] Care Team Personnel Name: Carlos RNHaley Position: [facility] RN Member Role: Primary Care Nurse Name: Jessica Perrin MD Position: [facility] Physician - Primary Care Member Role: PCP Address: Address: [address] [place] [address]- Care Team Related Persons Name: SANDY BOYCE Address: home [address] [place] [address] Name: COLT BOYCE Address: home [address] [place] [address]
--- OUTSIDE RECORDS SUMMARY | 2024-07-06 12:06 | XMS_ITS | Continuity of Care Document ---
Author Organization [facility] Address Unknown Care Team Providers Care Office Machine Installer Name Role Phone Marychuy MCCLAIN, Jessica Primary Care Physician [facility] Date(s): 11/21/21 - 12/21/21 [facility] Allergies, Adverse Reactions, Alerts Substance Reaction Severity [...] 03/10/21 15:25:00 EDT, Route to Pharmacy Electronically, [facility] #[id number], 165, cm, 12/25/20 10:00:00 EDT, Height, 88, kg, 11/03/19 18:19:00... Start Date: 03/10/21 Status: Ordered calcium (as citrate)-vitamin D 315 mg-250 intl units oral tablet 2 tablet, By Mouth, 2 times a day, Tej, # 360 tablet, 3 Refills, Maintenance, 03/26/21 13:03:00 EDT, Tablet, [facility] #[id number], 2 tablet By Mouth 2 times a day,x90 days,Instr:Tej, 165, cm, 03/26/21 11:57:00 EDT, Height, 88, kg, 11/03/19 18... Start Date: 03/26/21 Stop Date: 03/21/22 Status: Ordered celecoxib 100 mg oral capsule 1 capsule = 100 mg, By Mouth, 2 times a day, PRN knee pain, # 60 capsule, 5 Refills, Maintenance, 10/22/21 10:44:00 EST, Capsule, [facility] #[id number], 165, cm, 10/22/21 9:05:00 EST, Height, 89.5, kg, 04/23/21 21:43:00 EDT, Dry Weight Start Date: 10/22/21 Status: Ordered citalopram 20 mg oral tablet 20 mg, 1, tablet, By Mouth, Daily, # 90 tablet, Refills 3, Tot. Refills 3, Maintenance, 07/12/21 18:12:00 EDT, Route to Pharmacy Electronically, [facility] #[id number], is awared of interaction w nicky, 165, cm, 04/23/21 21:43:00 EDT, He... Start Date: 07/12/21 Status: Ordered Clarinex 5 mg oral tablet 1 tablet = 5 mg, By Mouth, Daily, Discontinue loratadine, # 30 tablet, 11 Refills, Maintenance, 03/26/21 13:02:00 EDT, Tablet, [facility] #[id number], 165, cm, 03/26/21 11:57:00 EDT, Height, 88,kg, 11/03/19 18:19:00 EST, Dry Weight Start Date: 03/26/21 Status: Ordered Colace sodium 100 mg oral capsule 100 mg, 1, capsule, By Mouth, 2 times a day, PRN, with plenty of water, # 180 capsule, Refills 3, Tot. Refills 3, Maintenance, as needed for constipation, 03/26/21 13:05:00 EDT, Route to Pharmacy Electronically, [facility] #[id number], Dispense o... Start Date: 03/26/21 Status: Ordered [...] tablet, 0 Refills, Maintenance, 09/30/21 16:04:00 EST, [facility] #[id number], 165, cm, 04/23/21 21:43:00 EDT, Height, 89.5, kg, 04/23/21 21:43:00 EDT, Dry Weight Start Date: 09/30/21 Status: Ordered EPINEPHrine 0.3 mg injectable solution = 0.3 mg, Intramuscular, Once, PRN Anaphylactic Reaction, # 1 each, 0 Refills, Soft Stop, 10/22/21 10:11:00 EST, [facility] #[id number], 165, cm, 10/22/21 9:05:00 EST, Height, 89.5, kg, 04/23/2121:43:00 EDT, Dry Weight Start Date: 10/22/21 Status: Ordered fluticasone 50 mcg/inh nasal spray 2 sprays, Nares, Both, Daily, Use every day during allergy season. While using spray keep head down. 30 days not 90 days dispense when patient requested by patient, # 16 Gm, 5 Refills, Maintenance, 07/07/21 7:57:00 EDT, [facility] #054... Start Date: 07/07/21 Status: Ordered hydrALAZINE 10 mg oral tablet 1, tablet, By Mouth, 3 times a day, Increase dose, # 90 tablet, Refills 11, Tot. Refills 11, 10/22/21 10:40:00 EST, Route to Pharmacy Electronically, [facility] #[id number], 165, cm, 10/22/21 9:05:00 EST, Height, 89.5, kg, 04/23/21 21:43:00 EDT,... Start Date: 10/22/21 Status: Ordered hydrochlorothiazide 12.5 mg oral tablet 1 tablet = 12.5 mg, By Mouth, Daily, discontinue HCTZ/lisinopril 25mg /20mg, # 30 tablet, 11 Refills, Maintenance, 10/29/21 13:48:00 EST, Tablet, [facility] #[id number], 165, cm, 10/29/21 12:16:00 EST, Height, 89.5, [...] Mouth, Daily, # 90 tablet, 1 Refills, [facility] #[id number], 165, cm, 10/29/21 12:16:00 EST, Height, 89.5, kg, 04/23/21 21:43:00 EDT, Dry Weight Start Date: 11/20/21 Status: Ordered lidocaine 5% topical film 1-3 patch, Topically, Daily, Apply patch in affected area. Remove patch(s) after 12 hours. Can reapply after resting 12 hours. Indication: diabetic neuropathy, # 30 patch, 11 Refills, Maintenance, 10/22/21 10:39:00 EST, [facility] #[id number]... Start Date: 10/22/21 Status: Ordered lisinopril 40 mg oral tablet 1 tablet = 40 mg, By Mouth, Daily, discontinue HCTZ/lisinopril 25mg /20mg, # 30 tablet, 11 Refills,Maintenance, 10/29/21 13:47:00 EST, Tablet, [facility] #[id number], Partial fill upon patient request if the prescription is for a schedule II op... Start Date: 10/29/21 Status: Ordered metFORMIN 500 mg oral tablet 1 tablet, By Mouth, 2 times a day, # 180 tablet, 3 Refills, Maintenance, 10/13/21 14:33:00 EST, [facility] #[id number], 165, cm, 04/23/21 21:43:00 EDT, Height, 89.5, kg, 04/23/21 21:43:00 EDT, Dry Weight Start Date: 10/13/21 Status: Ordered Tkq-kyq-qnfic medical-grade oxford diabetic shoes, depth or hightop Agk-kkz-lwmtf medical-grade oxford diabetic shoes, depth or hightop, [...] Refills, Maintenance, 12/18/21 15:48:00 EDT, EC Capsule, [id number], 165, cm, 10/29/21 12:16:00 EST,... Start Date: [...] Gm, 11 Refills, Maintenance, 10/22/21 10:43:00 EST, [facility] #[id number], Partial fill upon patient request if the prescription is for a schedule II o... Start Date: 10/22/21 Status: Ordered pravastatin 80 mg oral tablet 1 tablet = 80 mg, By Mouth, Daily, 90 days, # 90 tablet, 3 Refills, Maintenance, 12/25/20 11:15:00 EDT, Tablet, [facility] #[id number], 165, cm, 12/25/20 10:00:00 EDT, Height, 88, kg, 11/03/19 18:19:00 EST, Dry Weight Start Date: 12/25/20 Status: Ordered Premarin Vaginal 0.625 mg/gm cream with applicator = 0.5 Gm, Vaginally, Every Wednesday and , # 42.5 Gm, 11 Refills, Maintenance, 03/26/21 13:01:00 EDT, [facility] #19506, 0.5 Gm Vaginally Every Wednesday and , 165, cm, 03/26/21 11:57:00 EDT, Height, 88, kg, 11/03/19 18:19:00 EST,... Start Date: 03/26/21 Status: Ordered Remeron 15 mg oral tablet 0.5 tablet = 7.5 mg, By Mouth, Daily at bedtime, Decreased dose, # 45 tablet, 3 Refills, Maintenance, 03/26/21 13:13:00 EDT, Tablet, [facility] #[id number], 165, cm, 03/26/21 11:57:00 EDT, Height, 88, [...] 12/16/21 10:05:00 EDT, Route to Pharmacy Electronically, [facility] #[id number], 165, cm, 10/29/21 12:16:00 EST, Height, 89.5, [...] 11 Refills, Maintenance, 10/22/21 10:44:00 EST, Capsule, [facility] #[id number], ., 165, cm, 10/22/21 9:05:00 EST, Height, 89.5, kg, 04/23/21 21:43:00 EDT, Dry Weight Start Date: 10/22/21 Status: Ordered Ventolin HFA 108 mcg/inh inhalation aerosol with adapter 2 puffs, Inhalation, 4 times a day, PRN Wheezing/Shortness of Breath, as directed 15 minutes beforeexercise 30 days not 90 days dispense when patient request it, # 8.5 Gm, 5 Refills, Maintenance, 03/26/21 13:06:00 EDT, [facility] #[id number]... Start Date: 03/26/21 Status: [...] 9, 10, 11, 12, 13 08/09/06 Active *[id number] Care Partn jb Cabrera(Confirmed) Active Prurigo nodularis(Confirmed) 08/17/08 Active Renal insufficiency(Confirmed) Active Non-insulin dependent type 2 diabetes mellitus(Confirmed) 01/24/09 Active Varicose vein(Confirmed) Active Vitamin D deficiency(Confirmed) 07/26/08 Active 1CKD Stage III. 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
--- OUTSIDE RECORDS SUMMARY | 2024-07-06 12:06 | XMS_ITS | Continuity of Care Document ---
Author Organization [facility] Address [address] [place] [address]- Care Team Providers Care Web Production Assistant Name Role Phone Marychuy MCCLAIN, Jessica Primary Care Physician [facility] Date(s): 04/24/21 - 05/24/21 [facility] [address] [place] [address]- Attending Physician: Dominik Elizabeth Admitting Physician: Dominik [...] 03/10/21 15:25:00 EDT, Route to Pharmacy Electronically, [facility] #[id number], 165, cm, 12/25/20 10:00:00 EDT, Height, 88, kg, 11/03/19 18:19:00... Start Date: 03/10/21 Status: Ordered calcium (as citrate)-vitamin D 315 mg-250 intl units oral tablet 2 tablet, By Mouth, 2 times a day, Tej, # 360 tablet, 3 Refills, Maintenance, 03/26/21 13:03:00 EDT, Tablet, [facility] #[id number], 2 tablet By Mouth 2 times a [...] 5 Refills, Maintenance, 03/26/21 13:08:00 EDT, Capsule, [facility] #[id number], 165, cm, 03/26/21 11:57:00 EDT, Height, 88, [...] 07/01/20 17:44:00 EDT, Route to Pharmacy Electronically, [facility] #[id number], is awared of interaction w nicky, 165, cm, 11/03/19 18:19:00 EST, He... Start Date: 07/01/20 Status: Ordered Clarinex 5 mg oral tablet 1 tablet = 5 mg, By Mouth, Daily, Discontinue loratadine, # 30 tablet, 11 Refills, Maintenance, 03/26/21 13:02:00 EDT, Tablet, [facility] #[id number], 165, cm, 03/26/21 11:57:00 EDT, Height, 88,kg, 11/03/19 18:19:00 EST, Dry Weight Start Date: 03/26/21 Status: Ordered Colace sodium 100 mg oral capsule 100 mg, 1, capsule, By Mouth, 2 times a day, PRN, with plenty of water, # 180 capsule, Refills 3, Tot. Refills 3, Maintenance, as needed for constipation, 03/26/21 13:05:00 EDT, Route to Pharmacy Electronically, [facility] #[id number], Dispense o... Start Date: 03/26/21 Status: Ordered [...] tablet, 3 Refills, Maintenance, 09/05/20 9:01:00 EST, [facility] #[id number], 165, cm, 11/03/19 18:19:00 EST, Height, 88, kg, 11/03/19 18:19:00 EST, Dry Weight Start Date: 09/05/20 Status: Ordered Dulera 200 mcg-5 mcg/inh inhalation aerosol 2 puffs, Inhalation, 2 times a day, # 13 Gm, 11 Refills, Maintenance, 08/10/20 16:21:00 EST, Aerosol, [facility] #[id number], 2 puffs Inhalation 2 times a day, 165, cm, 11/03/19 18:19:00 EST, Height, 88, kg, 11/03/19 18:19:00 EST, Dry Weight Start Date: 08/10/20 Status: Ordered EPINEPHrine 0.3 mg injectable solution = 0.3 mg, Intramuscular, Once, PRN Anaphylactic Reaction, # 1 each, 0 Refills, Soft Stop, 06/26/20 8:38:00 EDT, [facility] #[id number], 165, cm, 11/03/19 18:19:00 EST, Height, 88, kg, 11/03/19 18:19:00 EST, Dry Weight Start Date: 06/26/20 Status: Ordered fluticasone 50 mcg/inh nasal spray 1 sprays, Nares, Both, 2 times a day, 0 Refills, Maintenance, 04/28/21 2:37:00 EDT, [facility], Partial fill upon patient request if the prescription is for a schedule II opioid drug. Start Date: 04/28/21 Status: Ordered fluticasone 50 mcg/inh nasal spray 2 sprays, Nares, Both, Daily, Use every day during allergy season. While using spray keep head down. 30 days not 90 days dispense when patient requested by patient, # 16 Gm, 5 Refills, Maintenance, 12/30/20 15:00:00 EDT, [facility] #05... Start Date: 12/30/20 Status: Ordered [...] 06/26/20 8:44:00 EDT, Route to Pharmacy Electronically, [facility] #[id number], 165, cm, 11/03/19 18:19:00 EST, Height, 88, kg, ... Start Date: 06/26/20 Stop Date: 06/21/21 Status: Ordered hydrochlorothiazide-lisinopril 25 mg-20 mg oral tablet 1 tablet, By Mouth, Daily, # 90 tablet, 3 Refills, Maintenance, 12/25/20 11:11:00 EDT, Tablet, [facility] #[id number], 90 days, 1 tablet By Mouth Daily, [...] tablet, 1 Refills, Maintenance, 03/04/21 10:16:00 EDT, [facility] #[id number], 165, cm, 12/25/20 10:00:00 EDT, Height, 88, [...] tablet, 3 Refills, Maintenance, 09/16/20 17:27:00 EST, [facility] #[id number], 165, cm, 11/03/19 18:19:00 EST, Height, 88, [...] Start Date: 04/28/21 Status: Ordered nystatin topical 138569 u/gm powder 1 application, Topically, 2 times a day, # 60 Gm, 1 Refills, Maintenance, 03/26/21 13:25:00 EDT, Powder, [facility] #[id number], Partial fill upon patient request if the prescription is for a schedule II opioid drug., 1 application Topically 2 ti... Start Date: 03/26/21 Status: Ordered Nystop 646080 u/gm powder 1 application, Topically, 2 times a day, # 60 Gm, 0 Refills, Maintenance, 04/28/21 2:38:00 EDT, Powder, Partial fill upon patient request if the prescription is for a schedule II opioid drug. Start Date: 04/28/21 Status: Ordered Nbp-rch-hlqpa medical-grade oxford diabetic shoes, depth or hightop Lex-fgk-uzxln medical-grade oxford diabetic shoes, depth or hightop, [...] 3 Refills, Maintenance, 12/25/20 11:15:00 EDT, Tablet, [facility] #[id number], 165, cm, 12/25/20 10:00:00 EDT, Height, 88, [...] Gm, 11 Refills, Maintenance, 03/26/21 13:01:00 EDT, [facility] #92554, 0.5 Gm Vaginally Every Wednesday and , [...] tablet, 2 Refills, Maintenance, 04/08/21 10:07:00 EDT, [facility] #[id number], MD is awared of interaction with citalopram;Duplicate rx; original sent 12/25/20. Remaining r... Start Date: 04/08/21 Status: Ordered Remeron 15 mg oral tablet 0.5 tablet = 7.5 mg, By Mouth, Daily at bedtime, Decreased dose, # 45 tablet, 3 Refills, Maintenance, 03/26/21 13:13:00 EDT, Tablet, [facility] #42544, 165, cm, 03/26/21 11:57:00 EDT, Height, 88, [...] 12/25/20 11:14:00 EDT, Route to Pharmacy Electronically, [facility] #[id number], 165, cm, 12/25/20 10:00:00 EDT, Height, 88, [...] Gm, 5 Refills, Maintenance, 03/26/21 13:06:00 EDT, [facility] #[id number]... Start Date: 03/26/21 Status: [...] 9, 10, 11, 12, 13 08/09/06 Active *[id number] Care Partn er Dolorescharly Cabrera(Confirmed) Active Prurigo nodularis(Confirmed) 08/17/08 Active Renal insufficiency(Confirmed) Active Non-insulin dependent type 2 diabetes mellitus(Confirmed) 01/24/09 Active Varicose vein(Confirmed) Active Vitamin D deficiency(Confirmed) 07/26/08 Active 1CKD Stage III. 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
--- OUTSIDE RECORDS SUMMARY | 2024-07-06 12:06 | XMS_ITS | Continuity of Care Document ---
Author Organization [facility] Address [address] [place] [address]- Care Team Providers Care Traffic Safety Administrator Name Role Phone Marychuy MCCLAIN, Jessica Primary Care Physician [facility] Date(s): 08/10/22 - 09/09/22 [facility] [address]- [place] Allergies, Adverse Reactions, Alerts Substance Reaction [...] Vaccine Date Status Refusal Reason SARS-CoV-2 mRNA ([id number]) vax 02/17/22 Given influenza virus vaccine, inactivated [...] tablet, 11 Refills, Maintenance, 05/13/22 11:27:00 EDT, [facility] #[id number], Partial fill upon cherelle... Start Date: 05/13/22 Status: Ordered albuterol 0.083% inhalation solution 3 mL = 2.5 mg, Inhalation, Every 6 hours, # 25 each, 5 Refills, Maintenance, 08/12/22 15:02:00 EST,[facility] #[id number], 165, cm, 06/18/22 13:19:00 EDT, Height, 88.9, kg, 02/09/22 15:14:00 EDT, Dry Weight Start Date: 08/12/22 Stop Date: 5/29/23 Status: Ordered budesonide 0.5 mg/2 mL inhalation suspension 0.5 mg, 2, mL, Neb, 2 times a day, # 120 mL, Refills 11, Tot. Refills 11, Maintenance, 08/13/22 15:24:00 EST, Suspension, Route to Pharmacy Electronically, [id number], [facility] #[id number], 165, cm, 06/18/22 13:19:00 E... Start Date: 08/13/22 Status: Ordered calcium (as citrate)-vitamin D 315 mg-250 intl units oral tablet 2 tablet, By Mouth, 2 times a day, # 360 tablet, 0 Refills, [facility] #[id number], 90, TAKE 2TABLETS BY MOUTH TWICE DAILY, 165, cm, 02/23/22 14:24:00 EDT, Height, 88.9, kg, 02/09/22 15:14:00 EDT, Dry Weight Start Date: 04/01/22 Status: Ordered citalopram 20 mg oral tablet 20 mg, 1, tablet, By Mouth, Daily, # 90 tablet, Refills 3, Tot. Refills 3, Maintenance, 07/08/22 14:31:00 EDT, Route to Pharmacy Electronically, [facility] #[id number], MD is awared of interaction w nicky, 165, cm, 06/18/22 13:19:00 EDT, He... Start Date: 07/08/22 Status: Ordered Clarinex 5 mg oral tablet 1 tablet = 5 mg, By Mouth, Daily, # 90 tablet, 3 Refills, Maintenance, 04/29/22 12:53:00 EDT, Tablet, [facility] #12629, 165, cm, 02/23/22 14:24:00 EDT, Height, 88.9, [...] 0 Refills, Soft Stop, 10/22/21 10:11:00 EST, [facility] #[id number], 165, cm, 10/22/21 9:05:00 EST, Height, 89.5, kg, 04/23/2121:43:00 EDT, Dry Weight Start Date: 10/22/21 Status: Ordered fluticasone 50 mcg/inh nasal spray See Instructions, SPRAY 2 TIMES IN EACH NOSTRILS EVERY DAY. NEEDED FOR ALLERGY SEASON. WHEN SPRAYING KEEP HEAD DOWN, # 16 Gm, 11 Refills, 02/17/22 13:14:00 EDT, [facility] #27644, 30, SPRAY 2 TIMES IN EACH NOSTRILS EVERY DAY. NEEDED FO... Start Date: 02/17/22 Status: Ordered formoterol 10 mcg/mL inhalation solution 2 mL = 20 mcg, Inhalation, 2 times a day, using a continuous flow nebulizer, # 60 each, 11 Refills,Maintenance, 08/13/22 15:24:00 EST, Solution, [facility] #[id number], 165, cm, 06/18/22 13:19:00 EDT, Height, 88.9, [...] 06/18/22 13:56:00 EDT, [facility]ically, [id number], Partial fill upon patient request if... Start Date: 06/18/22 Status: Ordered hydrochlorothiazide 12.5 mg oral tablet 1 tablet = 12.5 mg, By Mouth, Daily, discontinue HCTZ/lisinopril 25mg /20mg, # 30 tablet, 11 Refills, Maintenance, 10/29/21 13:48:00 EST, Tablet, [facility] #23349, 165, cm, 10/29/21 12:16:00 EST, Height, 89.5, kg, 04/23/21 21:43:00 EDT, . Start Date: 10/29/21 Status: Ordered levothyroxine 0.05 mg oral tablet 1 tablet, By Mouth, Daily, # 90 tablet, 1 Refills, Maintenance, 05/20/22 16:09:00 EDT, [facility] #[id number], 165, cm, 05/20/22 16:02:00 EDT, Height, 88.9, kg, 02/09/22 15:14:00 EDT, Dry Weight Start Date: 05/20/22 Status: Ordered lisinopril 40 mg oral tablet 1 tablet = 40 mg, By Mouth, Daily, discontinue HCTZ/lisinopril 25mg /20mg, # 30 tablet, 11 Refills,Maintenance, 10/29/21 13:47:00 EST, Tablet, [facility] #[id number], Partial fill upon patient request if the prescription is for a schedule II op... Start Date: 10/29/21 Status: Ordered Matzim LA 360 mg/24 hours oral tablet, extended release 1 tablet, By Mouth, Daily, # 90 tablet, 3 Refills, 02/17/22 13:08:00 EDT, [facility] #[id number], 165, cm, 02/17/22 12:49:00 EDT, Height, 88.9, kg, 02/09/22 15:14:00 EDT, Dry Weight Start Date: 02/17/22 Status: Ordered metFORMIN 500 mg oral tablet 1 tablet, By Mouth, 2 times a day, # 180 tablet, 3 Refills, Maintenance, 10/13/21 14:33:00 EST, [facility] #[id number], 165, cm, 04/23/21 21:43:00 EDT, Height, 89.5, kg, 04/23/21 21:43:00 EDT, Dry Weight Start Date: 10/13/21 Status: Ordered mirtazapine 15 mg oral tablet 0.5 tablet, By Mouth, Daily at bedtime, DECREASED DOSE., # 45 tablet, 1 Refills, Maintenance, 05/12/22 9:17:00 EDT, [facility] #[id number], 165, cm, 02/23/22 14:24:00 EDT, Height, 88.9, kg, 02/09/22 15:14:00 EDT, Dry Weight Start Date: 05/12/22 Status: Ordered montelukast 10 mg oral tablet 1, tablet, By Mouth, Daily at bedtime, SUPPLY., # 90 tablet, Refills 1, Maintenance, 06/18/22 14:04:00 EDT, Route to Pharmacy Electronically, [facility] #[id number], 165, cm, 06/18/22 13:19:00 EDT, Height, 88.9, kg, 02/09/22 15:14:00 EDT, Dry Weight Start Date: 06/18/22 Stop Date: 09/16/22 Status: Ordered Gjd-cdl-zmhlm medical-grade oxford diabetic shoes, depth or hightop Jdj-rje-mrvnz medical-grade oxford diabetic shoes, depth or hightop, [...] Refills, Maintenance, 12/18/21 15:48:00 EDT, EC Capsule, [facility][id number], 165, cm, 10/29/21 12:16:00 EST,... Start Date: 12/18/21 Status: Ordered Paxlovid 150 mg-100 mg (150 mg-100 mg Dose) oral tablet See Instructions, Three tablets by mouth BID as per package directions, # 1 pack/packet, 0 Refills,Acute 06/11/23 9:38:00 EDT, 06/10/22 9:37:00 EDT, [facility] #[id number], Partial fill upon patient request if the prescription is for a schedule... Start Date: 06/10/22 Stop Date: 06/11/23 Status: Ordered pravastatin 80 mg oral tablet 1 tablet, By Mouth, Daily, # 90 tablet, 1 Refills, Maintenance, 06/27/22 12:04:00 EDT, [facility] #[id number], 165, cm, 06/18/22 13:19:00 EDT, Height, 88.9, kg, 02/09/22 15:14:00 EDT, Dry Weight Start Date: 06/27/22 Status: Ordered Premarin Vaginal 0.625 mg/gm cream with applicator See Instructions, APPLY 1/2 GRAM IN THE VAGINA EVERY WEDNESDAY AND WEDNESDAY, # 30 Gm, 11 Refills, Maintenance, 05/11/22 14:58:00 EDT, [facility] #52425, 30, APPLY 1/2 GRAM IN THE VAGINA [...] Gm, 5 Refills, Maintenance, 05/13/22 11:27:00 EDT, [facility] #[id number], Partial fill upon patient request if the [...] 4, 5, 6, 7 Confirmed 08/09/06 Active *[id number] 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
--- OUTSIDE RECORDS SUMMARY | 2024-07-06 12:06 | XMS_ITS | Continuity of Care Document ---
Author Organization [facility] Address Unknown Care Team Providers Care Smoking Pipes Cleaner Name Role Phone Jessica Perrin MD Primary Care Physician Encounter [facility] Date(s): 10/24/21 - 11/23/21 [facility] Allergies, Adverse Reactions, Alerts Substance Reaction [...] 03/10/21 15:25:00 EDT, Route to Pharmacy Electronically, [facility] #[id number], 165, cm, 12/25/20 10:00:00 EDT, Height, 88, kg, 11/03/19 18:19:00... Start Date: 03/10/21 Status: Ordered calcium (as citrate)-vitamin D 315 mg-250 intl units oral tablet 2 tablet, By Mouth, 2 times a day, Tej, # 360 tablet, 3 Refills, Maintenance, 03/26/21 13:03:00 EDT, Tablet, [facility] #[id number], 2 tablet By Mouth 2 times a day,x90 days,Instr:Tej, 165, cm, 03/26/21 11:57:00 EDT, Height, 88, kg, 11/03/19 18... Start Date: 03/26/21 Stop Date: 03/21/22 Status: Ordered celecoxib 100 mg oral capsule 1 capsule = 100 mg, By Mouth, 2 times a day, PRN knee pain, # 60 capsule, 5 Refills, Maintenance, 10/22/21 10:44:00 EST, Capsule, [facility] #[id number], 165, cm, 10/22/21 9:05:00 EST, Height, 89.5, kg, 04/23/21 21:43:00 EDT, Dry Weight Start Date: 10/22/21 Status: Ordered citalopram 20 mg oral tablet 20 mg, 1, tablet, By Mouth, Daily, # 90 tablet, Refills 3, Tot. Refills 3, Maintenance, 07/12/21 18:12:00 EDT, Route to Pharmacy Electronically, [facility] #[id number], is awared of interaction w nicky, 165, cm, 04/23/21 21:43:00 EDT, He... Start Date: 07/12/21 Status: Ordered Clarinex 5 mg oral tablet 1 tablet = 5 mg, By Mouth, Daily, Discontinue loratadine, # 30 tablet, 11 Refills, Maintenance, 03/26/21 13:02:00 EDT, Tablet, [facility] #[id number], 165, cm, 03/26/21 11:57:00 EDT, Height, 88,kg, 11/03/19 18:19:00 EST, Dry Weight Start Date: 03/26/21 Status: Ordered Colace sodium 100 mg oral capsule 100 mg, 1, capsule, By Mouth, 2 times a day, PRN, with plenty of water, # 180 capsule, Refills 3, Tot. Refills 3, Maintenance, as needed for constipation, 03/26/21 13:05:00 EDT, Route to Pharmacy Electronically, [facility] #[id number], Dispense o... Start Date: 03/26/21 Status: Ordered [...] tablet, 0 Refills, Maintenance, 09/30/21 16:04:00 EST, [facility] #[id number], 165, cm, 04/23/21 21:43:00 EDT, Height, 89.5, kg, 04/23/21 21:43:00 EDT, Dry Weight Start Date: 09/30/21 Status: Ordered EPINEPHrine 0.3 mg injectable solution = 0.3 mg, Intramuscular, Once, PRN Anaphylactic Reaction, # 1 each, 0 Refills, Soft Stop, 10/22/21 10:11:00 EST, [facility] #[id number], 165, cm, 10/22/21 9:05:00 EST, Height, 89.5, kg, 04/23/2121:43:00 EDT, Dry Weight Start Date: 10/22/21 Status: Ordered fluticasone 50 mcg/inh nasal spray 2 sprays, Nares, Both, Daily, Use every day during allergy season. While using spray keep head down. 30 days not 90 days dispense when patient requested by patient, # 16 Gm, 5 Refills, Maintenance, 07/07/21 7:57:00 EDT, [facility] #[id number]... Start Date: 07/07/21 Status: Ordered hydrALAZINE 10 mg oral tablet 1, tablet, By Mouth, 3 times a day, Increase dose, # 90 tablet, Refills 11, Tot. Refills 11, 10/22/21 10:40:00 EST, Route to Pharmacy Electronically, [facility] #[id number], 165, cm, 10/22/21 9:05:00 EST, Height, 89.5, kg, 04/23/21 21:43:00 EDT,... Start Date: 10/22/21 Status: Ordered hydrochlorothiazide 12.5 mg oral tablet 1 tablet = 12.5 mg, By Mouth, Daily, discontinue HCTZ/lisinopril 25mg /20mg, # 30 tablet, 11 Refills, Maintenance, 10/29/21 13:48:00 EST, Tablet, [facility] #[id number], 165, cm, 10/29/21 12:16:00 EST, Height, 89.5, [...] Mouth, Daily, # 90 tablet, 1 Refills, [facility] #[id number], 165, cm, 10/29/21 12:16:00 EST, Height, 89.5, kg, 04/23/21 21:43:00 EDT, Dry Weight Start Date: 11/20/21 Status: Ordered lidocaine 5% topical film 1-3 patch, Topically, Daily, Apply patch in affected area. Remove patch(s) after 12 hours. Can reapply after resting 12 hours. Indication: diabetic neuropathy, # 30 patch, 11 Refills, Maintenance, 10/22/21 10:39:00 EST, [facility] #[id number]... Start Date: 10/22/21 Status: Ordered lisinopril 40 mg oral tablet 1 tablet = 40 mg, By Mouth, Daily, discontinue HCTZ/lisinopril 25mg /20mg, # 30 tablet, 11 Refills,Maintenance, 10/29/21 13:47:00 EST, Tablet, [facility] #[id number], Partial fill upon patient request if the prescription is for a schedule II op... Start Date: 10/29/21 Status: Ordered metFORMIN 500 mg oral tablet 1 tablet, By Mouth, 2 times a day, # 180 tablet, 3 Refills, Maintenance, 10/13/21 14:33:00 EST, [facility] #[id number], 165, cm, 04/23/21 21:43:00 EDT, Height, 89.5, kg, 04/23/21 21:43:00 EDT, Dry Weight Start Date: 10/13/21 Status: Ordered Hba-rbe-vivxx medical-grade oxford diabetic shoes, depth or hightop Iwi-orc-lopov medical-grade oxford diabetic shoes, depth or hightop, [...] Gm, 11 Refills, Maintenance, 10/22/21 10:43:00 EST, [facility] #[id number], Partial fill upon patient request if the prescription is for a schedule II o... Start Date: 10/22/21 Status: Ordered pravastatin 80 mg oral tablet 1 tablet = 80 mg, By Mouth, Daily, 90 days, # 90 tablet, 3 Refills, Maintenance, 12/25/20 11:15:00 EDT, Tablet, [facility] #[id number], 165, cm, 12/25/20 10:00:00 EDT, Height, 88, kg, 11/03/19 18:19:00 EST, Dry Weight Start Date: 12/25/20 Status: Ordered Premarin Vaginal 0.625 mg/gm cream with applicator = 0.5 Gm, Vaginally, Every Wednesday and , # 42.5 Gm, 11 Refills, Maintenance, 03/26/21 13:01:00 EDT, [facility] #[id number], 0.5 Gm Vaginally Every Wednesday and , 165, cm, 03/26/21 11:57:00 EDT, Height, 88, kg, 11/03/19 18:19:00 EST,... Start Date: 03/26/21 Status: Ordered PriLOSEC OTC 20 mg oral delayed release tablet 1 tablet = 20 mg, By Mouth, Daily, Take 30 mins before breakfast, # 90 tablet, 2 Refills, Maintenance, 04/08/21 10:07:00 EDT, [facility] #[id number], MD is awared of interaction with citalopram;Duplicate rx; original sent 12/25/20. Remaining r... Start Date: 04/08/21 Status: Ordered Remeron 15 mg oral tablet 0.5 tablet = 7.5 mg, By Mouth, Daily at bedtime, Decreased dose, # 45 tablet, 3 Refills, Maintenance, 03/26/21 13:13:00 EDT, Tablet, [facility] #[id number], 165, cm, 03/26/21 11:57:00 EDT, Height, 88, [...] 12/25/20 11:14:00 EDT, Route to Pharmacy Electronically, [facility] #[id number], 165, cm, 12/25/20 10:00:00 EDT, Height, 88, [...] 11 Refills, Maintenance, 10/22/21 10:44:00 EST, Capsule, [facility] #[id number], ., 165, cm, 10/22/21 9:05:00 EST, Height, 89.5, kg, 04/23/21 21:43:00 EDT, Dry Weight Start Date: 10/22/21 Status: Ordered Ventolin HFA 108 mcg/inh inhalation aerosol with adapter 2 puffs, Inhalation, 4 times a day, PRN Wheezing/Shortness of Breath, as directed 15 minutes beforeexercise 30 days not 90 days dispense when patient request it, # 8.5 Gm, 5 Refills, Maintenance, 03/26/21 13:06:00 EDT, [facility] #[id number]... 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
--- OUTSIDE RECORDS SUMMARY | 2024-07-06 12:06 | XMS_ITS | Continuity of Care Document ---
Author Organization [facility] Address [address] [place] [id number]- Care Team Providers Care Head Custodian Name Role Phone Marychuy MCCLAIN, Jessica Primary Care Physician Encounter [facility] Date(s): 06/05/22 - 07/05/22 [facility] [address] [place] [id number]- [place] Allergies, Adverse Reactions, Alerts Substance Reaction [...] Vaccine Date Status Refusal Reason SARS-CoV-2 mRNA (apdstzf-[id number]) vax 02/17/22 Given influenza virus vaccine, inactivated [...] tablet, 11 Refills, Maintenance, 05/13/22 11:27:00 EDT, [facility] #[id number], Partial fill upon cherelle... Start Date: 05/13/22 Status: Ordered albuterol 0.083% inhalation solution 3 mL = 2.5 mg, Inhalation, Every 6 hours, # 25 each, 2 Refills, Maintenance, 05/13/22 11:31:00 EDT,[facility] #[id number], 165, cm, 05/13/22 10:23:00 EDT, Height, 88.9, kg, 02/09/22 15:14:00 EDT, Dry Weight Start Date: 05/13/22 Stop Date: 08/11/22 Status: Ordered budesonide 0.5 mg/2 mL inhalation suspension 0.5 mg, 2, mL, Neb, 2 times a day, # 120 mL, Refills 5, Tot. Refills 5, Maintenance, 02/11/22 14:27:00 EDT, Suspension, Route to Pharmacy Electronically, [id number], [facility] #[id number], 165, cm, 02/09/22 15:14:00 EDT... Start Date: 02/11/22 Status: Ordered calcium (as citrate)-vitamin D 315 mg-250 intl units oral tablet 2 tablet, By Mouth, 2 times a day, # 360 tablet, 0 Refills, [facility] #[id number], 90, TAKE 2TABLETS BY MOUTH TWICE DAILY, 165, cm, 02/23/22 14:24:00 EDT, Height, 88.9, kg, 02/09/22 15:14:00 EDT, Dry Weight Start Date: 04/01/22 Status: Ordered citalopram 20 mg oral tablet 20 mg, 1, tablet, By Mouth, Daily, # 90 tablet, Refills 3, Tot. Refills 3, Maintenance, 07/12/21 18:12:00 EDT, Route to Pharmacy Electronically, [facility] #[id number], MD is awared of interaction w nicky, 165, cm, 04/23/21 21:43:00 EDT, He... Start Date: 07/12/21 Status: Ordered Clarinex 5 mg oral tablet 1 tablet = 5 mg, By Mouth, Daily, # 90 tablet, 3 Refills, Maintenance, 04/29/22 12:53:00 EDT, Tablet, [facility] #[id number], 165, cm, 02/23/22 14:24:00 EDT, Height, 88.9, [...] 0 Refills, Soft Stop, 10/22/21 10:11:00 EST, [facility] #[id number], 165, cm, 10/22/21 9:05:00 EST, Height, 89.5, kg, 04/23/2121:43:00 EDT, Dry Weight Start Date: 10/22/21 Status: Ordered fluticasone 50 mcg/inh nasal spray See Instructions, SPRAY 2 TIMES IN EACH NOSTRILS EVERY DAY. NEEDED FOR ALLERGY SEASON. WHEN SPRAYING KEEP HEAD DOWN, # 16 Gm, 11 Refills, 02/17/22 13:14:00 EDT, [facility] #[id number], 30, SPRAY 2 TIMES IN EACH NOSTRILS EVERY DAY. NEEDED FO... Start Date: 02/17/22 Status: Ordered formoterol 10 mcg/mL inhalation solution 2 mL = 20 mcg, Inhalation, 2 times a day, using a continuous flow nebulizer, # 60 each, 5 Refills, Maintenance, 02/11/22 14:28:00 EDT, Solution, [facility] #[id number], 165, cm, 02/09/22 15:14:00 EDT, Height, 88.9, [...] 06/18/22 13:56:00 EDT, Route to Pharmacy Electronically, [facility] #[id number], Partial fill upon patient request if... Start Date: 06/18/22 Status: Ordered hydrochlorothiazide 12.5 mg oral tablet 1 tablet = 12.5 mg, By Mouth, Daily, discontinue HCTZ/lisinopril 25mg /20mg, # 30 tablet, 11 Refills, Maintenance, 10/29/21 13:48:00 EST, Tablet, [facility] #[id number], 165, cm, 10/29/21 12:16:00 EST, Height, 89.5, kg, 04/23/21 21:43:00 EDT, Dr... Start Date: 10/29/21 Status: Ordered levothyroxine 0.05 mg oral tablet 1 tablet, By Mouth, Daily, # 90 tablet, 1 Refills, Maintenance, 05/20/22 16:09:00 EDT, [facility] #[id number], 165, cm, 05/20/22 16:02:00 EDT, Height, 88.9, kg, 02/09/22 15:14:00 EDT, Dry Weight Start Date: 05/20/22 Status: Ordered lisinopril 40 mg oral tablet 1 tablet = 40 mg, By Mouth, Daily, discontinue HCTZ/lisinopril 25mg /20mg, # 30 tablet, 11 Refills,Maintenance, 10/29/21 13:47:00 EST, Tablet, [facility] #[id number], Partial fill upon patient request if the prescription is for a schedule II op... Start Date: 10/29/21 Status: Ordered Matzim LA 360 mg/24 hours oral tablet, extended release 1 tablet, By Mouth, Daily, # 90 tablet, 3 Refills, 02/17/22 13:08:00 EDT, [facility] #[id number], 165, cm, 02/17/22 12:49:00 EDT, Height, 88.9, kg, 02/09/22 15:14:00 EDT, Dry Weight Start Date: 02/17/22 Status: Ordered metFORMIN 500 mg oral tablet 1 tablet, By Mouth, 2 times a day, # 180 tablet, 3 Refills, Maintenance, 10/13/21 14:33:00 EST, [facility] #[id number], 165, cm, 04/23/21 21:43:00 EDT, Height, 89.5, kg, 04/23/21 21:43:00 EDT, Dry Weight Start Date: 10/13/21 Status: Ordered mirtazapine 15 mg oral tablet 0.5 tablet, By Mouth, Daily at bedtime, DECREASED DOSE., # 45 tablet, 1 Refills, Maintenance, 05/12/22 9:17:00 EDT, [facility] #[id number], 165, cm, 02/23/22 14:24:00 EDT, Height, 88.9, kg, 02/09/22 15:14:00 EDT, Dry Weight Start Date: 05/12/22 Status: Ordered montelukast 10 mg oral tablet 1, tablet, By Mouth, Daily at bedtime, SUPPLY., # 90 tablet, Refills 1, Maintenance, 06/18/22 14:04:00 EDT, Route to Pharmacy Electronically, [facility] #[id number], 165, cm, 06/18/22 13:19:00 EDT, Height, 88.9, kg, 02/09/22 15:14:00 EDT, Dry Weight Start Date: 06/18/22 Stop Date: 09/16/22 Status: Ordered Vma-arn-uigja medical-grade oxford diabetic shoes, depth or hightop Tiw-nab-uxmdg medical-grade oxford diabetic shoes, depth or hightop, [...] Refills, Maintenance, 12/18/21 15:48:00 EDT, EC Capsule, [facility] #[id number], 165, cm, 10/29/21 12:16:00 EST,... Start Date: 12/18/21 Status: Ordered Paxlovid 150 mg-100 mg (150 mg-100 mg Dose) oral tablet See Instructions, Three tablets by mouth BID as per package directions, # 1 pack/packet, 0 Refills,Acute 06/11/23 9:38:00 EDT, 06/10/22 9:37:00 EDT, [facility] #[id number], Partial fill upon patient request if the prescription is for a schedule... Start Date: 06/10/22 Stop Date: 06/11/23 Status: Ordered pravastatin 80 mg oral tablet 1 tablet, By Mouth, Daily, # 90 tablet, 1 Refills, Maintenance, 06/27/22 12:04:00 EDT, [facility] #[id number], 165, cm, 06/18/22 13:19:00 EDT, Height, 88.9, kg, 02/09/22 15:14:00 EDT, Dry Weight Start Date: 06/27/22 Status: Ordered Premarin Vaginal 0.625 mg/gm cream with applicator See Instructions, APPLY 1/2 GRAM IN THE VAGINA EVERY WEDNESDAY AND WEDNESDAY, # 30 Gm, 11 Refills, Maintenance, 05/11/22 14:58:00 EDT, [facility] #09209, 30, APPLY 1/2 GRAM IN THE VAGINA [...] Gm, 5 Refills, Maintenance, 05/13/22 11:27:00 EDT, [facility] #[id number], Partial fill upon patient request if the [...] 4, 5, 6, 7 Confirmed 08/09/06 Active [id number] Slitter Cut Off Operator Yee Ceballos Confirmed Active Varicose vein [...] Care team information Personnel Name: Marychuy MCCLAIN, [facility] Address: Address: [address] [place] [address]
--- OUTSIDE RECORDS SUMMARY | 2024-07-06 12:07 | XMS_ITS | Continuity of Care Document ---
Author Organization [facility] Address [address] [place] [address]- Care Team Providers Care Pole Peeler Name Role Phone Marychuy MCCLAIN, Jessica Primary Care Physician Encounter [facility] Date(s): 02/19/23 - 03/21/23 [facility] [address]- [place] Allergies, Adverse Reactions, Alerts Substance Reaction [...] virus vaccine, inactivated 5 07/29/06 Gi javon [id number] 12y+ bivalent booster vax 07/28/22 Recorded SARS-CoV-2 mRNA ([id number]) vax 02/17/22 Given SARS-CoV-2 (COVID-19) mRNA BNT-162b2 [...] tablet, 11 Refills, Maintenance, 05/13/22 11:27:00 EDT, [facility] #[id number], Partial fill upon cherelle... Start Date: 05/13/22 Status: Ordered albuterol 0.083% inhalation solution 3 mL = 2.5 mg, Inhalation, Every 6 hours, # 25 each, 5 Refills, Maintenance, 08/12/22 15:02:00 EST,[facility] #[id number], 165, cm, 06/18/22 13:19:00 EDT, Height, 88.9, kg, 02/09/22 15:14:00 EDT, Dry Weight Start Date: 08/12/22 Stop Date: 02/08/23 Status: Ordered budesonide 0.5 mg/2 mL inhalation suspension 0.5 mg, 2, mL, Neb, 2 times a day, # 120 mL, Refills 11, Tot. Refills 11, Maintenance, 10/16/22 16:58:00 EST, Suspension, Route to Pharmacy Electronically, [id number], [facility] #[id number], 163, cm, 10/16/22 16:21:00 E... Start Date: 10/16/22 Status: Ordered budesonide 0.5 mg/2 mL inhalation suspension 0.5 mg, 2, mL, Neb, 2 times a day, # 120 mL, Refills 11, Tot. Refills 11, Maintenance, 08/13/22 15:24:00 EST, Suspension, Route to Pharmacy Electronically, [id number], [facility] #[id number], 165, cm, 06/18/22 13:19:00 E... Start Date: 08/13/22 Status: Ordered calcium (as citrate)-vitamin D 315 mg-250 intl units oral tablet 2 tablet, By Mouth, 2 times a day, # 360 tablet, 0 Refills, Maintenance, 12/07/22 14:46:00 EDT, [facility] #[id number], 90, 2 tablet By Mouth 2 times a day, 163, cm, 11/05/22 16:59:00 EST, Height, 90, kg, 11/05/22 16:59:00 EST, Dry Weight Start Date: 12/07/22 Status: Ordered citalopram 20 mg oral tablet 20 mg, 1, tablet, By Mouth, Daily, # 90 tablet, Refills 3, Tot. Refills 3, Maintenance, 07/08/22 14:31:00 EDT, Route to Pharmacy Electronically, [facility] #[id number], is awared of interaction w nicky, 165, cm, 06/18/22 13:19:00 EDT, He... Start Date: 07/08/22 Status: Ordered Clarinex 5 mg oral tablet 1 tablet = 5 mg, By Mouth, Daily, # 90 tablet, 3 Refills, Maintenance, 04/29/22 12:53:00 EDT, Tablet, [facility] #[id number], 165, cm, 02/23/22 14:24:00 EDT, Height, 88.9, [...] tablet, 0 Refills, Maintenance, 03/15/23 11:47:00 EDT, [facility] #[id number], 160, cm, 02/09/23 16:45:00 EDT, Height, 89.54, kg, 02/09/23 16:45:00 EDT, Dry Weight Start Date: 03/15/23 Status: Ordered EPINEPHrine 0.3 mg injectable solution = 0.3 mg, Intramuscular, Once, PRN Anaphylactic Reaction, # 1 each, 0 Refills, Soft Stop, 10/22/21 10:11:00 EST, [facility] #[id number], 165, cm, 10/22/21 9:05:00 EST, Height, 89.5, kg, 04/23/2121:43:00 EDT, Dry Weight Start Date: 10/22/21 Status: Ordered fluticasone 50 mcg/inh nasal spray See Instructions, INSTILL 2 SPRAYS INTO EACH NOSTRIL EVERY DAY NEEDED FOR ALLERGY SEASON. WHEN SPRAYING KEEP HEAD DOWN, # 16 Gm, 0 Refills, Maintenance, 02/26/23 12:54:00 EDT, [facility]#83657, 30, INSTILL 2 SPRAYS INTO EACH NOSTRIL EVER... Start Date: 02/26/23 Status: Ordered formoterol 10 mcg/mL inhalation solution 2 mL = 20 mcg, Inhalation, 2 times a day, using a continuous flow nebulizer, # 120 mL, 11 Refills, Maintenance, 10/16/22 16:58:00 EST, Solution, [facility] #[id number], Partial fill upon patientrequest if the prescription [...] 11/05/22 17:53:00 EST, Route to Pharmacy Electronically, [facility] #[id number], Partial fill upon patient request if the prescription is for a schedule II opi... Start Date: 11/05/22 Stop Date: 11/10/22 Status: Ordered gabapentin 300 mg oral capsule 300 mg, 1, capsule, By Mouth, 2 times a day, PRN, # 20 capsule, Refills 0, Tot. Refills 0, Maintenance, Pain , Severe, 11/05/22 17:53:00 EST, Route to Pharmacy Electronically, [facility] #[id number], Partial fill upon patient request if the presc... Start Date: 11/05/22 Stop Date: 11/15/22 Status: Ordered hydrALAZINE 25 mg oral tablet 25 mg, 1, tablet, By Mouth, 3 times a day, discontinue hydralazine 10mg, # 90 tablet, Refills 11, Tot. Refills 11, Maintenance, 06/18/22 13:56:00 EDT, Route to Pharmacy Electronically, [facility] #[id number], Partial fill upon patient request if... Start [...] tablet, 11 Refills, Maintenance, 09/30/22 12:56:00 EST, [facility] #59329, 163, cm, 09/30/22 11:48:00 EST, Height, 92.8, kg, 09/24/22 22:19:00 EST, Dry Weight Start Date: 09/30/22 Status: Ordered lisinopril 40 mg oral tablet 1 tablet = 40 mg, By Mouth, 2 times a day, increase dose discontinue HCTZ 12.5mg, # 60 tablet, 11 Refills, Maintenance, 09/30/22 12:54:00 EST, Tablet, [facility] #05473, 163, cm, 09/30/22 11:48:00 EST, Height, 92.8, kg, 09/24/22 22:19:00... Start Date: 09/30/22 Stop Date: 09/25/23 Status: Ordered Matzim LA 360 mg/24 hours oral tablet, extended release See Instructions, TAKE 1 TABLET BY MOUTH DAILY, # 90 tablet, 0 Refills, Maintenance, 03/09/23 14:37:00 EDT, [facility] #[id number], 160, cm, 02/09/23 16:45:00 EDT, Height, 89.54, kg, 02/09/23 16:45:00 EDT, Dry Weight Start Date: 03/09/23 Status: Ordered Matzim LA 360 mg/24 hours oral tablet, extended release 1 tablet, By Mouth, Daily, # 90 tablet, 3 Refills, 02/17/22 13:08:00 EDT, [facility] #[id number], 165, cm, 02/17/22 12:49:00 EDT, Height, 88.9, kg, 02/09/22 15:14:00 EDT, Dry Weight Start Date: 02/17/22 Status: Ordered metFORMIN 500 mg oral tablet, extended release 1 tablet = 500 mg, By Mouth, Daily in AM, discontinue metformin 500mg with meal, # 30 tablet, 11 Refills, Maintenance, 09/30/22 12:51:00 EST, ER Tablet, [facility] #[id number], 163, cm, 09/30/2310:48:00 EST, Height, 92.8, kg, 09/24/22 22:1... Start Date: 09/30/22 Status: Ordered mirtazapine 15 mg oral tablet 0.5 tablet, By Mouth, Daily at bedtime, DECREASED DOSE, # 45 tablet, 1 Refills, Maintenance, 10/20/22 20:06:00 EST, [facility] #[id number], 163, cm, 10/16/22 16:21:00 EST, Height, 92.8, kg, 09/24/22 22:19:00 EST, Dry Weight Start Date: 10/20/22 Status: Ordered montelukast 10 mg oral tablet 1, tablet, By Mouth, Daily at bedtime, SUPPLY., # 90 tablet, Refills 1, Tot. Refills 1, Maintenance, 12/07/22 14:50:00 EDT, Route to Pharmacy Electronically, [facility] #[id number], 163, cm, 11/05/22 16:59:00 EST, Height, 90, kg, 11/05/22 16:59:0... Start Date: 12/07/22 Stop Date: 06/05/23 Status: Ordered Ycm-tnz-amocr medical-grade oxford diabetic shoes, depth or hightop Czk-thz-iqdfi medical-grade oxford diabetic shoes, depth or hightop, [...] capsule, 5 Refills, Maintenance, 03/05/23 9:04:00 EDT, [facility] #[id number], 160, cm, 02/09/23 16:45... Start Date: 03/05/23 Status: Ordered pravastatin 80 mg oral tablet 1 tablet, By Mouth, Daily, # 90 tablet, 1 Refills, Maintenance, 12/07/22 14:47:00 EDT, [facility] #37145, 163, cm, 11/05/22 16:59:00 EST, Height, 90, kg, 11/05/22 16:59:00 EST, Dry Weight Start Date: 12/07/22 Status: Ordered Premarin Vaginal 0.625 mg/gm cream with applicator See Instructions, APPLY 1/2 GRAM IN THE VAGINA EVERY WEDNESDAY AND WEDNESDAY, # 30 Gm, 11 Refills, Maintenance, 05/11/22 14:58:00 EDT, [facility] #66831, 30, APPLY 1/2 GRAM IN THE VAGINA EVERY WEDNESDAY AND WEDNESDAY, 165, cm, 02/23/22 14:24:00 EDT,... Start Date: 05/11/22 Status: Ordered ProAir HFA 90 mcg/inh inhalation aerosol with adapter 2, puffs, Inhalation, 4 times a day, PRN, # 1 each, Refills 11, Tot. Refills 11, Maintenance, 10/16/22 17:00:00 EST, Route to Pharmacy Electronically, [id number], [facility] #[id number], 163, cm, 10/16/22 16:21:00 EST, H... Start [...] day, PRN itching Apply to lower extremities Croatian, # 30 Gm, 0Refills, Maintenance, 01/07/23 14:27:00 [...] 4, 5, 6, 7 Confirmed 08/09/06 Active *[id number] Spot Sprayer Francis Malinarnacion Confirmed Active Varicose vein Confirmed [...] Team Personnel Name: Haley Gonzalez RN Position: [facility] RN Member Role: Primary Care Nurse Name: Jessica Perrin MD Position: [facility] Physician - Primary Care Member Role: PCP Address: Address: [address] [place] [address]- Care Team Related Persons Name: BOYCESANDY JORDAN Address: [address] [place] [address] Name: COLT BOYCE Address: [address] [place] [address]
--- OUTSIDE RECORDS SUMMARY | 2024-07-06 12:07 | XMS_ITS | Continuity of Care Document ---
Author Organization [facility] Address [address] [place] [address]- Care Team Providers Care Manager Infrastructure Name Role Phone Marychuy MCCLAIN, Jessica Primary Care Physician Encounter [facility] Date(s): 07/31/22 - 08/30/22 [facility] [address]- [place] Allergies, Adverse Reactions, Alerts Substance Reaction [...] Vaccine Date Status Refusal Reason SARS-CoV-2 mRNA (ocrjeqx-[id number]) vax 02/17/22 Given influenza virus vaccine, inactivated [...] tablet, 11 Refills, Maintenance, 05/13/22 11:27:00 EDT, [facility] #[id number], Partial fill upon cherelle... Start Date: 05/13/22 Status: Ordered albuterol 0.083% inhalation solution 3 mL = 2.5 mg, Inhalation, Every 6 hours, # 25 each, 5 Refills, Maintenance, 08/12/22 15:02:00 EST,[facility] #[id number], 165, cm, 06/18/22 13:19:00 EDT, Height, 88.9, kg, 02/09/22 15:14:00 EDT, Dry Weight Start Date: 08/12/22 Stop Date: 5/29/23 Status: Ordered budesonide 0.5 mg/2 mL inhalation suspension 0.5 mg, 2, mL, Neb, 2 times a day, # 120 mL, Refills 11, Tot. Refills 11, Maintenance, 08/13/22 15:24:00 EST, Suspension, Route to Pharmacy Electronically, [id number], [facility] #[id number], 165, cm, 06/18/22 13:19:00 E... Start Date: 08/13/22 Status: Ordered calcium (as citrate)-vitamin D 315 mg-250 intl units oral tablet 2 tablet, By Mouth, 2 times a day, # 360 tablet, 0 Refills, [facility] #[id number], 90, TAKE 2TABLETS BY MOUTH TWICE DAILY, 165, cm, 02/23/22 14:24:00 EDT, Height, 88.9, kg, 02/09/22 15:14:00 EDT, Dry Weight Start Date: 04/01/22 Status: Ordered citalopram 20 mg oral tablet 20 mg, 1, tablet, By Mouth, Daily, # 90 tablet, Refills 3, Tot. Refills 3, Maintenance, 07/08/22 14:31:00 EDT, Route to Pharmacy Electronically, [facility] #[id number], MD is awared of interaction w nicky, 165, cm, 06/18/22 13:19:00 EDT, He... Start Date: 07/08/22 Status: Ordered Clarinex 5 mg oral tablet 1 tablet = 5 mg, By Mouth, Daily, # 90 tablet, 3 Refills, Maintenance, 04/29/22 12:53:00 EDT, Tablet, [facility] #[id number], 165, cm, 02/23/22 14:24:00 EDT, Height, 88.9, [...] 0 Refills, Soft Stop, 10/22/21 10:11:00 EST, [facility] #[id number], 165, cm, 10/22/21 9:05:00 EST, Height, 89.5, kg, 04/23/2121:43:00 EDT, Dry Weight Start Date: 10/22/21 Status: Ordered fluticasone 50 mcg/inh nasal spray See Instructions, SPRAY 2 TIMES IN EACH NOSTRILS EVERY DAY. NEEDED FOR ALLERGY SEASON. WHEN SPRAYING KEEP HEAD DOWN, # 16 Gm, 11 Refills, 02/17/22 13:14:00 EDT, [facility] #[id number], 30, SPRAY 2 TIMES IN EACH NOSTRILS EVERY DAY. NEEDED FO... Start Date: 02/17/22 Status: Ordered formoterol 10 mcg/mL inhalation solution 2 mL = 20 mcg, Inhalation, 2 times a day, using a continuous flow nebulizer, # 60 each, 11 Refills,Maintenance, 08/13/22 15:24:00 EST, Solution, [facility] #[id number], 165, cm, 06/18/22 13:19:00 EDT, Height, 88.9, [...] 06/18/22 13:56:00 EDT, Route to Pharmacy Electronically, [facility] #[id number], Partial fill upon patient request if... Start Date: 06/18/22 Status: Ordered hydrochlorothiazide 12.5 mg oral tablet 1 tablet = 12.5 mg, By Mouth, Daily, discontinue HCTZ/lisinopril 25mg /20mg, # 30 tablet, 11 Refills, Maintenance, 10/29/21 13:48:00 EST, Tablet, [facility] #[id number], 165, cm, 10/29/21 12:16:00 EST, Height, 89.5, kg, 04/23/21 21:43:00 EDT, . Start Date: 10/29/21 Status: Ordered levothyroxine 0.05 mg oral tablet 1 tablet, By Mouth, Daily, # 90 tablet, 1 Refills, Maintenance, 05/20/22 16:09:00 EDT, [facility] #[id number], 165, cm, 05/20/22 16:02:00 EDT, Height, 88.9, kg, 02/09/22 15:14:00 EDT, Dry Weight Start Date: 05/20/22 Status: Ordered lisinopril 40 mg oral tablet 1 tablet = 40 mg, By Mouth, Daily, discontinue HCTZ/lisinopril 25mg /20mg, # 30 tablet, 11 Refills,Maintenance, 10/29/21 13:47:00 EST, Tablet, [facility] #[id number], Partial fill upon patient request if the prescription is for a schedule II op... Start Date: 10/29/21 Status: Ordered Matzim LA 360 mg/24 hours oral tablet, extended release 1 tablet, By Mouth, Daily, # 90 tablet, 3 Refills, 02/17/22 13:08:00 EDT, [facility] #[id number], 165, cm, 02/17/22 12:49:00 EDT, Height, 88.9, kg, 02/09/22 15:14:00 EDT, Dry Weight Start Date: 02/17/22 Status: Ordered metFORMIN 500 mg oral tablet 1 tablet, By Mouth, 2 times a day, # 180 tablet, 3 Refills, Maintenance, 10/13/21 14:33:00 EST, [facility] #[id number], 165, cm, 04/23/21 21:43:00 EDT, Height, 89.5, kg, 04/23/21 21:43:00 EDT, Dry Weight Start Date: 10/13/21 Status: Ordered mirtazapine 15 mg oral tablet 0.5 tablet, By Mouth, Daily at bedtime, DECREASED DOSE., # 45 tablet, 1 Refills, Maintenance, 05/12/22 9:17:00 EDT, [facility] #[id number], 165, cm, 02/23/22 14:24:00 EDT, Height, 88.9, kg, 02/09/22 15:14:00 EDT, Dry Weight Start Date: 05/12/22 Status: Ordered montelukast 10 mg oral tablet 1, tablet, By Mouth, Daily at bedtime, SUPPLY., # 90 tablet, Refills 1, Maintenance, 06/18/22 14:04:00 EDT, Route to Pharmacy Electronically, [facility] #[id number], 165, cm, 06/18/22 13:19:00 EDT, Height, 88.9, kg, 02/09/22 15:14:00 EDT, Dry Weight Start Date: 06/18/22 Stop Date: 09/16/22 Status: Ordered Hxa-gcf-[id number] medical-grade oxford diabetic shoes, depth or hightop [id number] medical-grade oxford diabetic shoes, depth or hightop, [...] Refills, Maintenance, 12/18/21 15:48:00 EDT, EC Capsule, [facility] #[id number], 165, cm, 10/29/21 12:16:00 EST,... Start Date: 12/18/21 Status: Ordered Paxlovid 150 mg-100 mg (150 mg-100 mg Dose) oral tablet See Instructions, Three tablets by mouth BID as per package directions, # 1 pack/packet, 0 Refills,Acute 06/11/23 9:38:00 EDT, 06/10/22 9:37:00 EDT, [facility] #[id number], Partial fill upon patient request if the prescription is for a schedule... Start Date: 06/10/22 Stop Date: 06/11/23 Status: Ordered pravastatin 80 mg oral tablet 1 tablet, By Mouth, Daily, # 90 tablet, 1 Refills, Maintenance, 06/27/22 12:04:00 EDT, [facility] #[id number], 165, cm, 06/18/22 13:19:00 EDT, Height, 88.9, kg, 02/09/22 15:14:00 EDT, Dry Weight Start Date: 06/27/22 Status: Ordered Premarin Vaginal 0.625 mg/gm cream with applicator See Instructions, APPLY 1/2 GRAM IN THE VAGINA EVERY WEDNESDAY AND WEDNESDAY, # 30 Gm, 11 Refills, Maintenance, 05/11/22 14:58:00 EDT, [facility] #[id number], 30, APPLY 1/2 GRAM IN THE VAGINA [...] 05/13/22 11:27:00 EDT, [facility] #[id number], Partial fill upon patient request if the [...] 4, 5, 6, 7 Confirmed 08/09/06 Active *[id number] Advanced [employer] Associate Isabel Arellano Confirmed Active Varicose vein Confirmed [...] Team Personnel Name: Carlos RN, Haley Position: [facility] RN Member Role: Primary Care Nurse Name: Marychuy MCCLAIN, Jessica Position: [facility] Primary Care Physician Member Role: PCP Address: Address: [address] [place] [address]- Care Team Related Persons Name: SANDY BOYCE Address: home [address] [place] [address] Name: COLT BOYCE Address: [address] [place] [address]
--- OUTSIDE RECORDS SUMMARY | 2024-07-06 12:07 | XMS_ITS | Continuity of Care Document ---
Author Organization [facility] Address [address] [place] [id number]- Care Team Providers Care Milanese Knitting Machine Operator Name Role Phone Marychuy MCCLAIN, Jessica Primary Care Physician Encounter [facility] Date(s): 10/09/22 - 11/08/22 [facility] [address] [place], [place] [address] Attending Physician: Dominik Elizabeth Admitting Physician: [...] Vaccine Date Status Refusal Reason SARS-CoV-2 mRNA ([id number]) vax 02/17/22 Given influenza virus vaccine, inactivated [...] tablet, 11 Refills, Maintenance, 05/13/22 11:27:00 EDT, [facility] #[id number], Partial fill upon cherelle... Start Date: 05/13/22 Status: Ordered albuterol 0.083% inhalation solution 3 mL = 2.5 mg, Inhalation, Every 6 hours, # 25 each, 5 Refills, Maintenance, 08/12/22 15:02:00 EST,[facility] #[id number], 165, cm, 06/18/22 13:19:00 EDT, Height, 88.9, kg, 02/09/22 15:14:00 EDT, Dry Weight Start Date: 08/12/22 Stop Date: 02/08/23 Status: Ordered budesonide 0.5 mg/2 mL inhalation suspension 0.5 mg, 2, mL, Neb, 2 times a day, # 120 mL, Refills 11, Tot. Refills 11, Maintenance, 10/16/22 16:58:00 EST, Suspension, Route to Pharmacy Electronically, [id number], [facility] #[id number], 163, cm, 10/16/22 16:21:00 E... Start Date: 10/16/22 Status: Ordered budesonide 0.5 mg/2 mL inhalation suspension 0.5 mg, 2, mL, Neb, 2 times a day, # 120 mL, Refills 11, Tot. Refills 11, Maintenance, 08/13/22 15:24:00 EST, Suspension, Route to Pharmacy Electronically, [id number], [facility] #[id number], 165, cm, 06/18/22 13:19:00 E... Start Date: 08/13/22 Status: Ordered calcium (as citrate)-vitamin D 315 mg-250 intl units oral tablet 2 tablet, By Mouth, 2 times a day, # 360 tablet, 0 Refills, Maintenance, 09/11/22 8:59:00 EST, [facility] #[id number], 90, TAKE 2 TABLETS BY MOUTH TWICE DAILY, 165, cm, 06/18/22 13:19:00 EDT, Height, 88.9, kg, 02/09/22 15:14:00 EDT, Dry Weight Start Date: 09/11/22 Status: Ordered citalopram 20 mg oral tablet 20 mg, 1, tablet, By Mouth, Daily, # 90 tablet, Refills 3, Tot. Refills 3, Maintenance, 07/08/22 14:31:00 EDT, Route to Pharmacy Electronically, [facility] #[id number], is awared of interaction w nicky, 165, cm, 06/18/22 13:19:00 EDT, He... Start Date: 07/08/22 Status: Ordered Clarinex 5 mg oral tablet 1 tablet = 5 mg, By Mouth, Daily, # 90 tablet, 3 Refills, Maintenance, 04/29/22 12:53:00 EDT, Tablet, [facility] #[id number], 165, cm, 02/23/22 14:24:00 EDT, Height, 88.9, [...] 0 Refills, Soft Stop, 10/22/21 10:11:00 EST, [facility] #[id number], 165, cm, 10/22/21 9:05:00 EST, Height, 89.5, kg, 04/23/2121:43:00 EDT, Dry Weight Start Date: 10/22/21 Status: Ordered fluticasone 50 mcg/inh nasal spray See Instructions, SPRAY 2 TIMES IN EACH NOSTRILS EVERY DAY. NEEDED FOR ALLERGY SEASON. WHEN SPRAYING KEEP HEAD DOWN, # 16 Gm, 11 Refills, 02/17/22 13:14:00 EDT, [facility] #[id number], 30, SPRAY 2 TIMES IN EACH NOSTRILS EVERY DAY. NEEDED FO... Start Date: 02/17/22 Status: Ordered formoterol 10 mcg/mL inhalation solution 2 mL = 20 mcg, Inhalation, 2 times a day, using a continuous flow nebulizer, # 120 mL, 11 Refills, Maintenance, 10/16/22 16:58:00 EST, Solution, [facility] #[id number], Partial fill upon patientrequest if the prescription [...] 11/05/22 17:53:00 EST, Route to Pharmacy Electronically, [facility] #[id number], Partial fill upon patient request if the prescription is for a schedule II opi... Start Date: 11/05/22 Stop Date: 11/10/22 Status: Ordered gabapentin 300 mg oral capsule 300 mg, 1, capsule, By Mouth, 2 times a day, PRN, # 20 capsule, Refills 0, Tot. Refills 0, Maintenance, Pain , Severe, 11/05/22 17:53:00 EST, Route to Pharmacy Electronically, [facility] #[id number], Partial fill upon patient request if the presc... Start Date: 11/05/22 Stop Date: 11/15/22 Status: Ordered hydrALAZINE 25 mg oral tablet 25 mg, 1, tablet, By Mouth, 3 times a day, discontinue hydralazine 10mg, # 90 tablet, Refills 11, Tot. Refills 11, Maintenance, 06/18/22 13:56:00 EDT, Route to Pharmacy Electronically, [facility] #[id number], Partial fill upon patient request if... Start [...] tablet, 11 Refills, Maintenance, 09/30/22 12:56:00 EST, [facility] #[id number], 163, cm, 09/30/22 11:48:00 EST, Height, 92.8, kg, 09/24/22 22:19:00 EST, Dry Weight Start Date: 09/30/22 Status: Ordered lisinopril 40 mg oral tablet 1 tablet = 40 mg, By Mouth, 2 times a day, increase dose discontinue HCTZ 12.5mg, # 60 tablet, 11 Refills, Maintenance, 09/30/22 12:54:00 EST, Tablet, [facility] #[id number], 163, cm, 09/30/22 11:48:00 EST, Height, 92.8, kg, 09/24/22 22:19:00... Start Date: 09/30/22 Stop Date: 09/25/23 Status: Ordered Matzim LA 360 mg/24 hours oral tablet, extended release 1 tablet, By Mouth, Daily, # 90 tablet, 3 Refills, 02/17/22 13:08:00 EDT, [facility] #[id number], 165, cm, 02/17/22 12:49:00 EDT, Height, 88.9, kg, 02/09/22 15:14:00 EDT, Dry Weight Start Date: 02/17/22 Status: Ordered metFORMIN 500 mg oral tablet, extended release 1 tablet = 500 mg, By Mouth, Daily in AM, discontinue metformin 500mg with meal, # 30 tablet, 11 Refills, Maintenance, 09/30/22 12:51:00 EST, ER Tablet, [facility] #[id number], 163, cm, 09/30/2310:48:00 EST, Height, 92.8, kg, 09/24/22 22:1... Start Date: 09/30/22 Status: Ordered mirtazapine 15 mg oral tablet 0.5 tablet, By Mouth, Daily at bedtime, DECREASED DOSE, # 45 tablet, 1 Refills, Maintenance, 10/20/22 20:06:00 EST, [facility] #[id number], 163, cm, 10/16/22 16:21:00 EST, Height, 92.8, kg, 09/24/22 22:19:00 EST, Dry Weight Start Date: 10/20/22 Status: Ordered montelukast 10 mg oral tablet 1, tablet, By Mouth, Daily at bedtime, SUPPLY., # 90 tablet, Refills 1, Maintenance, 06/18/22 14:04:00 EDT, Route to Pharmacy Electronically, [facility] #[id number], 165, cm, 06/18/22 13:19:00 EDT, Height, 88.9, kg, 02/09/22 15:14:00 EDT, Dry Weight Start Date: 06/18/22 Stop Date: 09/16/22 Status: Ordered Roq-knd-vszif medical-grade oxford diabetic shoes, depth or hightop Joz-txm-qjsba medical-grade oxford diabetic shoes, depth or hightop, [...] Refills, Maintenance, 12/18/21 15:48:00 EDT, EC Capsule, [facility] #[id number], 165, cm, 10/29/21 12:16:00 EST,... Start Date: 12/18/21 Status: Ordered pravastatin 80 mg oral tablet 1 tablet, By Mouth, Daily, # 90 tablet, 1 Refills, Maintenance, 06/27/22 12:04:00 EDT, [facility] #[id number], 165, cm, 06/18/22 13:19:00 EDT, Height, 88.9, kg, 02/09/22 15:14:00 EDT, Dry Weight Start Date: 06/27/22 Status: Ordered Premarin Vaginal 0.625 mg/gm cream with applicator See Instructions, APPLY 1/2 GRAM IN THE VAGINA EVERY WEDNESDAY AND WEDNESDAY, # 30 Gm, 11 Refills, Maintenance, 05/11/22 14:58:00 EDT, [facility] #[id number], 30, APPLY 1/2 GRAM IN THE VAGINA EVERY WEDNESDAY AND WEDNESDAY, 165, cm, 02/23/22 14:24:00 EDT,... Start Date: 05/11/22 Status: Ordered ProAir HFA 90 mcg/inh inhalation aerosol with adapter 2, puffs, Inhalation, 4 times a day, PRN, # 1 each, Refills 11, Tot. Refills 11, Maintenance, 10/16/22 17:00:00 EST, Route to Pharmacy Electronically, [id number], [facility] #[id number], 163, cm, 10/16/22 16:21:00 EST, H... Start [...] 4, 5, 6, 7 Confirmed 08/09/06 Active *[id number] Instrument Maintenance Supervisor Francis Malinarnacion Confirmed Active Varicose vein Confirmed [...] Jessica Perrin MD Position: [facility] Primary Care Physician Member Role: PCP Address: Address: [address] [place] [address]- Care Team Related Persons Name: SANDY BOYCE Address: [address] [place] [address] Name: BOYCECOLT Address: home [address] [place] [address]
--- OUTSIDE RECORDS SUMMARY | 2024-07-06 12:07 | XMS_ITS | Continuity of Care Document ---
Author Organization [facility] Address [address] [place] [id number]- Care Team Providers Care Tree Surgeon Helper Name Role Phone Marychuy MCCLAIN, Jessica Primary Care Physician [facility]counter [facility] Date(s): 05/16/24 - 06/15/24 [facility]/[address] [address]- Allergies, Adverse Reactions, Alerts Substance Reaction Severity [...] virus vaccine, inactivated 5 07/29/06 Gi javon [id number] 12y+ bivalent booster vax 03/24/23 Given [id number] 12y+ bivalent booster vax 07/28/22 Recorded SARS-CoV-2 mRNA (drxndbv-bmaq-pigpm) vax 02/17/22 Given SARS-CoV-2 (COVID-19) mRNA BNT-162b2 [...] Refills, Maintenance, 01/19/24 8:32:00 EDT, ER Tablet, [facility] #[id number], Partial fill upon patient request if th... Start Date: 01/19/24 Status: Ordered Albuterol (Eqv-ProAir HFA) 90 mcg/inh inhalation aerosol 2 puffs, Inhalation, Every 6 hours, PRN Wheezing/Shortness of Breath, # 8.5 Gm, 5 Refills, Maintenance, 01/19/24 8:30:00 EDT, [facility] #[id number], If pump is not covered, it can [...] 01/19/24 8:40:00 EDT, Route to Pharmacy Electronically, [id number], [facility] #[id number], 165, cm, 01/19/24 7:55:00 EDT, Height, 85.... Start Date: 01/19/24 Status: Ordered busPIRone 15 mg oral tablet See Instructions, PRN as needed for anxiety, 1/3-1 tablet By Mouth 2 times a day, # 60 tablet, 5 Refills, Maintenance, 05/24/24 9:07:00 EDT, [facility] #[id number], Partial fill upon patient request if the prescription is for a schedule II opioid... Start Date: 05/24/24 Status: Ordered calcium (as citrate)-vitamin D 315 mg-250 intl units oral tablet 2 tablet, By Mouth, 2 times a day, # 360 tablet, 3 Refills, Maintenance, 03/18/24 10:33:00 EDT, [facility] #[id number], 2 tablet By Mouth 2 times a day,x90 days, 165, cm, 01/19/24 7:55:00 EDT, Height, 85.45, kg, 12/23/23 9:04:00 EDT, Dry Weight Start Date: 03/18/24 Stop Date: 03/13/25 Status: Ordered ciclopirox 8% topical solution 1 application, Topically, Daily, as directed to affected area toenails, # 6.6 mL, 11 Refills, Maintenance, 01/19/24 9:20:00 EDT, Solution, [facility] #[id number], ., 1 application Topically Daily,Instr:as directed; to affected area toenails, 165... Start Date: 01/19/24 Status: Ordered Clarinex 5 mg oral tablet 1 tablet = 5 mg, By Mouth, Daily, # 90 tablet, 3 Refills, Maintenance, 03/18/24 10:23:00 EDT, Tablet, [facility] #[id number], 165, cm, 01/19/24 7:55:00 EDT, Height, 85.45, [...] 11 Refills, Maintenance, 01/19/24 8:42:00 EDT, Gel, [facility] #[id number], ., 165, cm, 01/19/24 7:55:00 EDT, Height, 85.45, kg, 12/23/23 9:04:00 EDT,Dry Weight Start Date: 01/19/24 Stop Date: 07/05/24 Status: Ordered Eliquis 5 mg oral tablet 1 tablet, By Mouth, 2 times a day, # 180 tablet, 3 Refills, Maintenance, 05/31/24 16:50:00 EDT, [facility] #[id number], 165, cm, 05/30/24 17:23:00 EDT, Height, 87.5, kg, 01/21/24 16:07:00 EDT, Dry Weight Start Date: 05/31/24 Status: Ordered EPINEPHrine 0.3 mg injectable solution = 0.3 mg, Intramuscular, Once, PRN Anaphylactic Reaction, # 1 each, 0 Refills, Soft Stop, 10/22/21 10:11:00 EST, [facility] #[id number], 165, cm, 10/22/21 9:05:00 EST, Height, 89.5, kg, 04/23/2121:43:00 EDT, Dry Weight Start Date: 10/22/21 Status: Ordered escitalopram 10 mg oral tablet 1 tablet = 10 mg, By Mouth, Daily, discontinue citalopram, # 30 tablet, 11 Refills, Maintenance, 01/19/24 8:34:00 EDT, Tablet, [facility] #[id number], Partial fill upon patient request if the prescription is for a schedule II opioid drug., 165, c... Start Date: 01/19/24 Status: Ordered fluticasone 50 mcg/inh nasal spray 2 sprays, Nares, Both, Daily, Use every day during allergy season. While using spray keep head down., # 3 each, 3 Refills, Maintenance, 03/18/24 10:28:00 EDT, [facility] #[id number], ., 2 spraysNares, Both Daily,x90 days,Instr:Use every day duri... Start Date: 03/18/24 Stop Date: 03/13/25 Status: Ordered formoterol 10 mcg/mL inhalation solution See Instructions, USE 2 ML VIA NEBULIZER TWICE DAILY USING A CONTINUOUS FLOW VIA NEBULIZER, # 120 mL, 11 Refills, Maintenance, 01/19/24 8:40:00 EDT, [facility] #[id number], 165, cm, 01/19/24 7:55:00 EDT, Height, 85.45, kg, 12/23/23 9:04:00 EDT, D... Start Date: 01/19/24 Status: Ordered glucagon 3 mg nasal powder = 3 mg, Naris, Left, Once, PRN unresponsive patient with low blood sugar, Dx insulin dependent DM 2E11.9 Z79.4, # 1 each, 1 Refills, Soft Stop, 05/24/24 9:00:00 EDT, [facility] #[id number], Dx insulin dependent DM 2; E11.9; Z79.4, 165, c... Start Date: 05/24/24 Status: Ordered Glucose Tablets See Instructions, # 100 tablet, Refills 2, Tot. Refills 2, Maintenance, 1 tablet ( 4Gm) By Mouth prn low bs below 70, 05/24/24 9:00:00 EDT, Compound, 165, cm, 05/24/24 7:58:00 EDT, Height, 87.5, kg, 01/21/24 16:07:00 EDT, Dry Weight Start Date: 05/24/24 Status: Ordered hydrALAZINE 25 mg oral tablet [...] tablet, 3 Refills, Maintenance, 03/18/24 10:31:00 EDT, [facility] #[id number], 165, cm, 01/19/24 7:55:00 EDT, Height, 85.45, kg, 12/23/23 9:04:00 EDT, Dry Weight Start Date: 03/18/24 Stop Date: 03/13/25 Status: Ordered lisinopril 40 mg oral tablet 1 tablet = 40 mg, By Mouth, 2 times a day, 11 AM, 5PM increase dose, # 180 tablet, 3 Refills, Maintenance, 05/24/24 9:07:00 EDT, Tablet, [facility] #[id number], 165, cm, 05/24/24 7:58:00 EDT, Height, 87.5, kg, 01/21/24 16:07:00 EDT, Dry Weight Start Date: 05/24/24 Stop Date: 05/19/25 Status: Ordered Matzim LA 180 mg/24 hours oral tablet, extended release 1 tablet = 180 mg, By Mouth, Daily in AM, Take at 11 AM, # 90 tablet, 3 Refills, Maintenance, 03/18/24 9:58:00 EDT, ER Tablet, [facility] #[id number], 165, cm, 01/19/24 7:55:00 EDT, Height, 85.45, kg, 12/23/23 9:04:00 EDT, Dry Weight Start Date: 03/18/24 Stop Date: 03/13/25 Status: Ordered metoprolol 25 mg oral tablet, extended release 25 mg, 1, tablet, By Mouth, Daily, # 30 tablet, Refills 11, Tot. Refills 11, Maintenance, 01/19/24 8:40:00 EDT, Route to Pharmacy Electronically, [facility] #[id number], 165, cm, 01/19/24 7:55:00 EDT, Height, 85.45, kg, 12/23/23 9:04:00 EDT, Dry... Start Date: 01/19/24 Status: Ordered mirtazapine 15 mg oral tablet 0.5 tablet, By Mouth, Daily at bedtime, # 45 tablet, 3 Refills, Maintenance, 03/18/24 10:22:00 EDT,[facility] #[id number], 165, cm, 01/19/24 7:55:00 EDT, Height, 85.45, kg, 12/23/23 9:04:00 EDT, Dry Weight Start Date: 03/18/24 Stop Date: 03/13/25 Status: Ordered montelukast 10 mg oral tablet 1, tablet, By Mouth, Daily at bedtime, # 90 tablet, Refills 3, Tot. Refills 3, Maintenance, 05/31/24 16:52:00 EDT, Route to Pharmacy Electronically, [facility] #[id number], 165, cm, 05/30/24 17:23:00 EDT, Height, 87.5, kg, 01/21/24 16:07:00 EDT,... Start Date: 05/31/24 Status: Ordered Nucala Prefilled Autoinjector 100 mg/mL subcutaneous solution = 100 mg, Subcutaneous Infusion, Every 28 days, j45.40, # 1 each, 11 Refills, Maintenance, 01/12/2414:58:00 EDT, [facility], Partial fill upon patient request if the prescription isfor a schedule II opioid drug., 165, cm, 01/04/24 1... Start Date: 01/13/24 Status: Ordered Dup-gum-kapbq medical-grade oxford diabetic shoes, depth or hightop Liv-qbt-mrphl medical-grade oxford diabetic shoes, depth or hightop, See Instructions, # 1 each, Refills 0, Tot. 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 Start Date: 03/24/23 Status: Ordered pantoprazole 40 mg oral delayed release tablet 1 tablet = 40 mg, By Mouth, Daily, take 30 minutes before breakfast, # 30 tablet, 11 Refills, Maintenance, 05/24/24 8:50:00 EDT, 165, cm, 05/24/24 7:58:00 EDT, Height, 87.5, kg, 01/21/24 16:07:00 EDT, Dry Weight Start Date: 05/24/24 Stop Date: 05/19/25 Status: Ordered Pen Shepherd, 32 G x 4 mm BD Ultra Fine III See Instructions, # 30 each, Refills 11, Tot. Refills 11, Maintenance, Use as directed for Victoza use once a day, 05/24/24 8:59:00 EDT, Compound, 165, cm, 05/24/24 7:58:00 EDT, Height, 87.5, kg, 01/21/24 16:07:00 EDT, Dry Weight Start Date: 05/24/24 Status: Ordered pravastatin 80 mg oral tablet 1 tablet, By Mouth, Daily, # 90 tablet, 3 Refills, Maintenance, 05/22/24 16:11:00 EDT, [facility] #[id number], 165, cm, 04/05/24 9:15:00 EDT, Height, 87.5, kg, 01/21/24 16:07:00 EDT, Dry Weight Start Date: 05/22/24 Stop Date: 05/17/25 Status: Ordered Premarin Vaginal 0.625 mg/gm cream with applicator See Instructions, APPLY 1/2 GRAM IN THE VAGINA EVERY WEDNESDAY AND WEDNESDAY, # 30 Gm, 11 Refills, Maintenance, 01/19/24 9:20:00 EDT, [facility] #[id number], 30, APPLY 1/2 GRAM IN THE VAGINA [...] in AM, at 11 AM Given by sous chef, Dr. Indio Mason, # 30 tablet, Refills [...] day, PRN itching Apply to lower extremities Hungarian, # 30 Gm, 2Refills, Maintenance, 02/23/24 8:27:00 EDT, [facility] #[id number], 1 application Topically 3 times a day,Instr:PRN itching ; Apply to lower e... Start Date: 02/23/24 Status: Ordered Victoza 18 mg/3 mL subcutaneous solution See Instructions, 0.6 mg subcutaneous injection daily for 1 week then 1.2 mg Subcutaneous InjectionDaily, # 6 mL, 11 Refills, Maintenance, 05/24/24 8:50:00 EDT, Solution, [facility] #[id number], ., 165, cm, 05/24/24 7:58:00 EDT, Height, 87.5, kg... 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 Confirmed Active Mixed hyperlipidemia Confirmed Active Obese class I Confirmed Active Obstructive sleep apnea 2 Confirmed 12/27/17 Active OA (osteoarthritis) of knee Confirmed Active Osteopenia 3, 4, 5, 6, 7, 8 Confirmed 08/09/06 Active *[id number] Restoration Technician Yee Ceballos Confirmed Active Varicose vein Confirmed [...] Care Nurse Name: Jessica Perrin MD [facility] Phys[facility] - Primary Care Member Role: PCP Address: Address: [address] [place] [address]- Care Team Related Persons Name: SANDY BOYCE Address: home [address] [place] [address] Name: COLT BOYCE Address: [address] [place] [address]
--- OUTSIDE RECORDS SUMMARY | 2024-07-06 12:07 | XMS_ITS | Continuity of Care Document ---
Author Organization [facility] Address [address] [place] [address]- Care Team Providers Care Verification Specialist Name Role Phone Marychuy MCCLAIN, Jessica Primary Care Physician [facility] Date[facility]): [facility]23 - 02/17/23 [facility] [address] [place] [id number] Attending Physician: Dominik Elizabeth Admitting [...] virus vaccine, inactivated 5 07/29/06 Gi javon [id number] 12y+ bivalent booster vax 07/28/22 Recorded SARS-CoV-2 mRNA (ermakim-oaou-nhgzh) vax 02/17/22 Given SARS-CoV-2 (COVID-19) mRNA BNT-162b2 [...] tablet, 11 Refills, Maintenance, 05/13/22 11:27:00 EDT, [facility] #[id number], Partial fill upon cherelle... Start Date: 05/13/22 Status: Ordered albuterol 0.083% inhalation solution 3 mL = 2.5 mg, Inhalation, Every 6 hours, # 25 each, 5 Refills, Maintenance, 08/12/22 15:02:00 EST,[facility] #[id number], 165, cm, 06/18/22 13:19:00 EDT, Height, 88.9, kg, 02/09/22 15:14:00 EDT, Dry Weight Start Date: 08/12/22 Stop Date: 02/08/23 Status: Ordered apixaban 5 mg oral tablet 1 tablet = 5 mg, By Mouth, 2 times a day, # 180 tablet, 0 Refills, Maintenance, 12/16/22 16:34:00 EDT, Tablet, [facility] #[id number], Partial fill upon patient request if the prescription is for a schedule II opioid drug., 163, cm, 12/16/22 7:58... Start Date: 12/16/22 Stop Date: 03/16/23 Status: Ordered budesonide 0.5 mg/2 mL inhalation suspension 0.5 mg, 2, mL, Neb, 2 times a day, # 120 mL, Refills 11, Tot. Refills 11, Maintenance, 10/16/22 16:58:00 EST, Suspension, Route to Pharmacy Electronically, [id number], [facility] #[id number], 163, cm, 10/16/22 16:21:00 E... Start Date: 10/16/22 Status: Ordered budesonide 0.5 mg/2 mL inhalation suspension 0.5 mg, 2, mL, Neb, 2 times a day, # 120 mL, Refills 11, Tot. Refills 11, Maintenance, 08/13/22 15:24:00 EST, Suspension, Route to Pharmacy Electronically, [id number], [facility] #[id number], 165, cm, 06/18/22 13:19:00 E... Start Date: 08/13/22 Status: Ordered calcium (as citrate)-vitamin D 315 mg-250 intl units oral tablet 2 tablet, By Mouth, 2 times a day, # 360 tablet, 0 Refills, Maintenance, 12/07/22 14:46:00 EDT, [facility] #[id number], 90, 2 tablet By Mouth 2 times a day, 163, cm, 11/05/22 16:59:00 EST, Height, 90, kg, 11/05/22 16:59:00 EST, Dry Weight Start Date: 12/07/22 Status: Ordered citalopram 20 mg oral tablet 20 mg, 1, tablet, By Mouth, Daily, # 90 tablet, Refills 3, Tot. Refills 3, Maintenance, 07/08/22 14:31:00 EDT, Route to Pharmacy Electronically, [facility] #[id number] is awared of interaction w nicky, 165, cm, 06/18/22 13:19:00 EDT, He... Start Date: 07/08/22 Status: Ordered Clarinex 5 mg oral tablet 1 tablet = 5 mg, By Mouth, Daily, # 90 tablet, 3 Refills, Maintenance, 04/29/22 12:53:00 EDT, Tablet, [facility] #[id number], 165, cm, 02/23/22 14:24:00 EDT, Height, 88.9, [...] 0 Refills, Soft Stop, 10/22/21 10:11:00 EST, [facility] #[id number], 165, cm, 10/22/21 9:05:00 EST, Height, 89.5, kg, 04/23/2121:43:00 EDT, Dry Weight Start Date: 10/22/21 Status: Ordered fluticasone 50 mcg/inh nasal spray See Instructions, SPRAY 2 TIMES IN EACH NOSTRILS EVERY DAY. NEEDED FOR ALLERGY SEASON. WHEN SPRAYING KEEP HEAD DOWN, # 16 Gm, 11 Refills, 02/17/22 13:14:00 EDT, [facility] #[id number], 30, SPRAY 2 TIMES IN EACH NOSTRILS EVERY DAY. NEEDED FO... Start Date: 02/17/22 Status: Ordered formoterol 10 mcg/mL inhalation solution 2 mL = 20 mcg, Inhalation, 2 times a day, using a continuous flow nebulizer, # 120 mL, 11 Refills, Maintenance, 10/16/22 16:58:00 EST, Solution, [facility] #[id number], Partial fill upon patientrequest if the prescription [...] 11/05/22 17:53:00 EST, Route to Pharmacy Electronically, [facility] #[id number], Partial fill upon patient request if the prescription is for a schedule II opi... Start Date: 11/05/22 Stop Date: 11/10/22 Status: Ordered gabapentin 300 mg oral capsule 300 mg, 1, capsule, By Mouth, 2 times a day, PRN, # 20 capsule, Refills 0, Tot. Refills 0, Maintenance, Pain , Severe, 11/05/22 17:53:00 EST, Route to Pharmacy Electronically, [facility] #[id number], Partial fill upon patient request if the presc... Start Date: 11/05/22 Stop Date: 11/15/22 Status: Ordered hydrALAZINE 25 mg oral tablet 25 mg, 1, tablet, By Mouth, 3 times a day, discontinue hydralazine 10mg, # 90 tablet, Refills 11, Tot. Refills 11, Maintenance, 06/18/22 13:56:00 EDT, Route to Pharmacy Electronically, [facility] #[id number], Partial fill upon patient request if... Start [...] tablet, 11 Refills, Maintenance, 09/30/22 12:56:00 EST, [facility] #[id number], 163, cm, 09/30/22 11:48:00 EST, Height, 92.8, kg, 09/24/22 22:19:00 EST, Dry Weight Start Date: 09/30/22 Status: Ordered lisinopril 40 mg oral tablet 1 tablet = 40 mg, By Mouth, 2 times a day, increase dose discontinue HCTZ 12.5mg, # 60 tablet, 11 Refills, Maintenance, 09/30/22 12:54:00 EST, Tablet, [facility] #[id number], 163, cm, 09/30/22 11:48:00 EST, Height, 92.8, kg, 09/24/22 22:19:00... Start Date: 09/30/22 Stop Date: 09/25/23 Status: Ordered Matzim LA 360 mg/24 hours oral tablet, extended release 1 tablet, By Mouth, Daily, # 90 tablet, 3 Refills, 02/17/22 13:08:00 EDT, [facility] #[id number], 165, cm, 02/17/22 12:49:00 EDT, Height, 88.9, kg, 02/09/22 15:14:00 EDT, Dry Weight Start Date: 02/17/22 Status: Ordered metFORMIN 500 mg oral tablet, extended release 1 tablet = 500 mg, By Mouth, Daily in AM, discontinue metformin 500mg with meal, # 30 tablet, 11 Refills, Maintenance, 09/30/22 12:51:00 EST, ER Tablet, [facility] #[id number], 163, cm, 09/30/2310:48:00 EST, Height, 92.8, kg, 09/24/22 22:1... Start Date: 09/30/22 Status: Ordered mirtazapine 15 mg oral tablet 0.5 tablet, By Mouth, Daily at bedtime, DECREASED DOSE, # 45 tablet, 1 Refills, Maintenance, 10/20/22 20:06:00 EST, [facility] #[id number], 163, cm, 10/16/22 16:21:00 EST, Height, 92.8, kg, 09/24/22 22:19:00 EST, Dry Weight Start Date: 10/20/22 Status: Ordered montelukast 10 mg oral tablet 1, tablet, By Mouth, Daily at bedtime, SUPPLY., # 90 tablet, Refills 1, Tot. Refills 1, Maintenance, 12/07/22 14:50:00 EDT, Route to Pharmacy Electronically, [facility] #[id number], 163, cm, 11/05/22 16:59:00 EST, Height, 90, kg, 11/05/22 16:59:0... Start Date: 12/07/22 Stop Date: 06/05/23 Status: Ordered Tzl-woy-zmtgx medical-grade oxford diabetic shoes, depth or hightop Ryc-glc-phxjn medical-grade oxford diabetic shoes, depth or hightop, [...] Refills, Maintenance, 12/07/22 14:49:00 EDT, EC Capsule, [facility] #[id number], 163, cm, 11/05/22 16:59:00 EST,... Start Date: 12/07/22 Status: Ordered pravastatin 80 mg oral tablet 1 tablet, By Mouth, Daily, # 90 tablet, 1 Refills, Maintenance, 12/07/22 14:47:00 EDT, [facility] #[id number], 163, cm, 11/05/22 16:59:00 EST, Height, 90, kg, 11/05/22 16:59:00 EST, Dry Weight Start Date: 12/07/22 Status: Ordered Premarin Vaginal 0.625 mg/gm cream with applicator See Instructions, APPLY 1/2 GRAM IN THE VAGINA EVERY WEDNESDAY AND WEDNESDAY, # 30 Gm, 11 Refills, Maintenance, 05/11/22 14:58:00 EDT, [facility] #[id number], 30, APPLY 1/2 GRAM IN THE VAGINA EVERY WEDNESDAY AND WEDNESDAY, 165, cm, 02/23/22 14:24:00 EDT,... Start Date: 05/11/22 Status: Ordered ProAir HFA 90 mcg/inh inhalation aerosol with adapter 2, puffs, Inhalation, 4 times a day, PRN, # 1 each, Refills 11, Tot. Refills 11, Maintenance, 10/16/22 17:00:00 EST, Route to Pharmacy Electronically, [id number], [facility] #[id number], 163, cm, 10/16/22 16:21:00 EST, H... Start [...] day, PRN itching Apply to lower extremities Prydeinig, # 30 Gm, 0Refills, Maintenance, 01/07/23 14:27:00 EDT, [facility], Partial fill upon patient request if [...] 4, 5, 6, 7 Confirmed 08/09/06 Active *[phone] Bottled Beverage Inspector Francis Caity Confirmed Active Varicose vein Confirmed [...] Team Personnel Name: Carlos RN, Haley Position: [facility] RN Member Role: Primary Care Nurse Name: Jessica Perrin MD Position: [facility] Physician - Primary Care Member Role: PCP Address: Address: [address] [place] [address]- Care Team Related Persons Name: SANDY BOYCE Address: home [address] [place] [address] Name: COLT BOYCE Address: home [address] [place] [address]
--- OUTSIDE RECORDS SUMMARY | 2024-07-06 12:07 | XMS_ITS | Continuity of Care Document ---
Author Organization [facility] Address [address] [place] [address]- Care Team Providers Care Leather Craftsman Name Role Phone Marychuy MCCLAIN, Jessica Primary Care Physician Encounter [facility] Date(s): 08/12/22 - 09/11/22 [facility] [address]- [place] Allergies, Adverse Reactions, Alerts Substance Reaction [...] Vaccine Date Status Refusal Reason SARS-CoV-2 mRNA (kuoswnl-wirx-ihkrl) vax 02/17/22 Given influenza virus vaccine, inactivated [...] tablet, 11 Refills, Maintenance, 05/13/22 11:27:00 EDT, [facility] #[id number], Partial fill upon cherelle... Start Date: 05/13/22 Status: Ordered albuterol 0.083% inhalation solution 3 mL = 2.5 mg, Inhalation, Every 6 hours, # 25 each, 5 Refills, Maintenance, 08/12/22 15:02:00 EST,[facility] #[id number], 165, cm, 06/18/22 13:19:00 EDT, Height, 88.9, kg, 02/09/22 15:14:00 EDT, Dry Weight Start Date: 08/12/22 Stop Date: 5/29/23 Status: Ordered budesonide 0.5 mg/2 mL inhalation suspension 0.5 mg, 2, mL, Neb, 2 times a day, # 120 mL, Refills 11, Tot. Refills 11, Maintenance, 08/13/22 15:24:00 EST, Suspension, Route to Pharmacy Electronically, [id number], [facility] #[id number], 165, cm, 06/18/22 13:19:00 E... Start Date: 08/13/22 Status: Ordered calcium (as citrate)-vitamin D 315 mg-250 intl units oral tablet 2 tablet, By Mouth, 2 times a day, # 360 tablet, 0 Refills, Maintenance, 09/11/22 8:59:00 EST, [facility] #[id number], 90, TAKE 2 TABLETS BY MOUTH TWICE DAILY, 165, cm, 06/18/22 13:19:00 EDT, Height, 88.9, kg, 02/09/22 15:14:00 EDT, Dry Weight Start Date: 09/11/22 Status: Ordered citalopram 20 mg oral tablet 20 mg, 1, tablet, By Mouth, Daily, # 90 tablet, Refills 3, Tot. Refills 3, Maintenance, 07/08/22 14:31:00 EDT, Route to Pharmacy Electronically, [facility] #[id number], MD is awared of interaction w nicky, 165, cm, 06/18/22 13:19:00 EDT, He... Start Date: 07/08/22 Status: Ordered Clarinex 5 mg oral tablet 1 tablet = 5 mg, By Mouth, Daily, # 90 tablet, 3 Refills, Maintenance, 04/29/22 12:53:00 EDT, Tablet, [facility] #[id number], 165, cm, 02/23/22 14:24:00 EDT, Height, 88.9, [...] 0 Refills, Soft Stop, 10/22/21 10:11:00 EST, [facility] #[id number], 165, cm, 10/22/21 9:05:00 EST, Height, 89.5, kg, 04/23/2121:43:00 EDT, Dry Weight Start Date: 10/22/21 Status: Ordered fluticasone 50 mcg/inh nasal spray See Instructions, SPRAY 2 TIMES IN EACH NOSTRILS EVERY DAY. NEEDED FOR ALLERGY SEASON. WHEN SPRAYING KEEP HEAD DOWN, # 16 Gm, 11 Refills, 02/17/22 13:14:00 EDT, [facility] #[id number], 30, SPRAY 2 TIMES IN EACH NOSTRILS EVERY DAY. NEEDED FO... Start Date: 02/17/22 Status: Ordered formoterol 10 mcg/mL inhalation solution 2 mL = 20 mcg, Inhalation, 2 times a day, using a continuous flow nebulizer, # 60 each, 11 Refills,Maintenance, 08/13/22 15:24:00 EST, Solution, [facility] #[id number], 165, cm, 06/18/22 13:19:00 EDT, Height, 88.9, [...] 06/18/22 13:56:00 EDT, Route to Pharmacy Electronically, [facility] #[id number], Partial fill upon patient request if... Start Date: 06/18/22 Status: Ordered hydrochlorothiazide 12.5 mg oral tablet 1 tablet = 12.5 mg, By Mouth, Daily, discontinue HCTZ/lisinopril 25mg /20mg, # 30 tablet, 11 Refills, Maintenance, 10/29/21 13:48:00 EST, Tablet, [facility] #[id number], 165, cm, 10/29/21 12:16:00 EST, Height, 89.5, kg, 04/23/21 21:43:00 EDT, Start Date: 10/29/21 Status: Ordered levothyroxine 0.05 mg oral tablet 1 tablet, By Mouth, Daily, # 90 tablet, 1 Refills, Maintenance, 05/20/22 16:09:00 EDT, [facility] #[id number], 165, cm, 05/20/22 16:02:00 EDT, Height, 88.9, kg, 02/09/22 15:14:00 EDT, Dry Weight Start Date: 05/20/22 Status: Ordered lisinopril 40 mg oral tablet 1 tablet = 40 mg, By Mouth, Daily, discontinue HCTZ/lisinopril 25mg /20mg, # 30 tablet, 11 Refills,Maintenance, 10/29/21 13:47:00 EST, Tablet, [facility] #[id number], Partial fill upon patient request if the prescription is for a schedule II op... Start Date: 10/29/21 Status: Ordered Matzim LA 360 mg/24 hours oral tablet, extended release 1 tablet, By Mouth, Daily, # 90 tablet, 3 Refills, 02/17/22 13:08:00 EDT, [facility] #[id number], 165, cm, 02/17/22 12:49:00 EDT, Height, 88.9, kg, 02/09/22 15:14:00 EDT, Dry Weight Start Date: 02/17/22 Status: Ordered metFORMIN 500 mg oral tablet 1 tablet, By Mouth, 2 times a day, # 180 tablet, 1 Refills, Maintenance, 09/10/22 18:37:00 EST, [facility] #[id number], 165, cm, 06/18/22 13:19:00 EDT, Height, 88.9, kg, 02/09/22 15:14:00 EDT, Dry Weight Start Date: 09/10/22 Status: Ordered mirtazapine 15 mg oral tablet 0.5 tablet, By Mouth, Daily at bedtime, DECREASED DOSE., # 45 tablet, 1 Refills, Maintenance, 05/12/22 9:17:00 EDT, [facility] #[id number], 165, cm, 02/23/22 14:24:00 EDT, Height, 88.9, kg, 02/09/22 15:14:00 EDT, Dry Weight Start Date: 05/12/22 Status: Ordered montelukast 10 mg oral tablet 1, tablet, By Mouth, Daily at bedtime, SUPPLY., # 90 tablet, Refills 1, Maintenance, 06/18/22 14:04:00 EDT, Route to Pharmacy Electronically, [facility] #[id number], 165, cm, 06/18/22 13:19:00 EDT, Height, 88.9, kg, 02/09/22 15:14:00 EDT, Dry Weight Start Date: 06/18/22 Stop Date: 09/16/22 Status: Ordered Ass-nbl-qdqvs medical-grade oxford diabetic shoes, depth or hightop Oib-yye-gkwwd medical-grade oxford diabetic shoes, depth or hightop, [...] Refills, Maintenance, 12/18/21 15:48:00 EDT, EC Capsule, [facility] #[id number], 165, cm, 10/29/21 12:16:00 EST,... Start Date: 12/18/21 Status: Ordered Paxlovid 150 mg-100 mg (150 mg-100 mg Dose) oral tablet See Instructions, Three tablets by mouth BID as per package directions, # 1 pack/packet, 0 Refills,Acute 06/11/23 9:38:00 EDT, 06/10/22 9:37:00 EDT, [facility] #[id number], Partial fill upon patient request if the prescription is for a schedule... Start Date: 06/10/22 Stop Date: 06/11/23 Status: Ordered pravastatin 80 mg oral tablet 1 tablet, By Mouth, Daily, # 90 tablet, 1 Refills, Maintenance, 06/27/22 12:04:00 EDT, [facility] #[id number], 165, cm, 06/18/22 13:19:00 EDT, Height, 88.9, kg, 02/09/22 15:14:00 EDT, Dry Weight Start Date: 06/27/22 Status: Ordered Premarin Vaginal 0.625 mg/gm cream with applicator See Instructions, APPLY 1/2 GRAM IN THE VAGINA EVERY WEDNESDAY AND WEDNESDAY, # 30 Gm, 11 Refills, Maintenance, 05/11/22 14:58:00 EDT, [facility] #[id number], 30, APPLY 1/2 GRAM IN THE VAGINA [...] Gm, 5 Refills, Maintenance, 05/13/22 11:27:00 EDT, [facility] #[id number], Partial fill upon patient request if the [...] 4, 5, 6, 7 Confirmed 08/09/06 Active *[id number] Water Project Manager Isabel Arellano Confirmed Active Varicose vein [...] Team Personnel Name: Haley Gonzalez RN Position: [facility] RN Member Role: Primary Care Nurse Name: Jessica Perrin MD Position: [facility] Primary Care Physician Member Role: PCP Address: Address: [address] [place] [address]- Care Team Related Persons Name: SANDY BOYCE Address: home [address] [place] [address] Name: COLT BOYCE Address: [address] [place] [address]
--- OUTSIDE RECORDS SUMMARY | 2024-07-06 12:07 | XMS_ITS | Continuity of Care Document ---
Author Organization [facility] Address [address] [place] [address]- Care Team Providers Care Outcomes Analyst Name Role Phone Marychuy MCCLAIN, Jessica Primary Care Physician Encounter [facility] Date(s): 11/05/22 - 11/05/[address] [address]- Encounter Diagnosis Dependent edema(Final) - 11/05/22 Discharge Disposition: A-D/C Home Attending Physician: Maulik Edward MD Admitting Physician: Maulik Edward MD Referring Physician: Not on Staff, Referring [...] Vaccine Date Status Refusal Reason SARS-CoV-2 mRNA (ylokvnv-rbmk-odeio) vax 02/17/22 Given influenza virus vaccine, inactivated [...] 100 tablet, 11 Refills, Maintenance, 05/13/22 [facility]:27:[id number], [facility] upon cherelle... Start Date: 05/13/22 Status: Ordered albuterol 0.083% inhalation solution 3 mL = 2.5 mg, Inhalation, Every 6 hours, # 25 each, 5 Refills, Maintenance, 08/12/22 15:02:00 EST,[facility] #[id number], 165, cm, 06/18/22 13:19:00 EDT, Height, 88.9, kg, 02/09/22 15:14:00 EDT, Dry Weight Start Date: 08/12/22 Stop Date: 02/08/23 Status: Ordered budesonide 0.5 mg/2 mL inhalation suspension 0.5 mg, 2, mL, Neb, 2 times a day, # 120 mL, Refills 11, Tot. Refills 11, Maintenance, 10/16/22 16:58:00 EST, Suspension, Route to Pharmacy Electronically, [id number], [facility] #[id number], 163, cm, 10/16/22 16:21:00 E... Start Date: 10/16/22 Status: Ordered budesonide 0.5 mg/2 mL inhalation suspension 0.5 mg, 2, mL, Neb, 2 times a day, # 120 mL, Refills 11, Tot. Refills 11, Maintenance, 08/13/22 15:24:00 EST, Suspension, Route to Pharmacy Electronically, [id number], [facility] #[id number], 165, cm, 06/18/22 13:19:00 E... Start Date: 08/13/22 Status: Ordered calcium (as citrate)-vitamin D 315 mg-250 intl units oral tablet 2 tablet, By Mouth, 2 times a day, # 360 tablet, 0 Refills, Maintenance, 09/11/22 8:59:00 EST, [facility] #[id number], 90, TAKE 2 TABLETS BY MOUTH TWICE DAILY, 165, cm, 06/18/22 13:19:00 EDT, Height, 88.9, kg, 02/09/22 15:14:00 EDT, Dry Weight Start Date: 09/11/22 Status: Ordered citalopram 20 mg oral tablet 20 mg, 1, tablet, By Mouth, Daily, # 90 tablet, Refills 3, Tot. Refills 3, Maintenance, 07/08/22 14:31:00 EDT, Route to Pharmacy Electronically, [facility] #[id number] is awared of interaction w nicky, 165, cm, 06/18/22 13:19:00 EDT, He... Start Date: 07/08/22 Status: Ordered Clarinex 5 mg oral tablet 1 tablet = 5 mg, By Mouth, Daily, # 90 tablet, 3 Refills, Maintenance, 04/29/22 12:53:00 EDT, Tablet, [facility] #[id number], 165, cm, 02/23/22 14:24:00 EDT, Height, 88.9, [...] 0 Refills, Soft Stop, 10/22/21 10:11:00 EST, [facility] #[id number], 165, cm, 10/22/21 9:05:00 EST, Height, 89.5, kg, 04/23/2121:43:00 EDT, Dry Weight Start Date: 10/22/21 Status: Ordered fluticasone 50 mcg/inh nasal spray See Instructions, SPRAY 2 TIMES IN EACH NOSTRILS EVERY DAY. NEEDED FOR ALLERGY SEASON. WHEN SPRAYING KEEP HEAD DOWN, # 16 Gm, 11 Refills, 02/17/22 13:14:00 EDT, [facility] #[id number], 30, SPRAY 2 TIMES IN EACH NOSTRILS EVERY DAY. NEEDED FO... Start Date: 02/17/22 Status: Ordered formoterol 10 mcg/mL inhalation solution 2 mL = 20 mcg, Inhalation, 2 times a day, using a continuous flow nebulizer, # 120 mL, 11 Refills, Maintenance, 10/16/22 16:58:00 EST, Solution, [facility] #[id number], Partial fill upon patientrequest if the prescription [...] 11/05/22 17:53:00 EST, Route to Pharmacy Electronically, [facility] #[id number], Partial fill upon patient request if the prescription is for a schedule II opi... Start Date: 11/05/22 Stop Date: 11/10/22 Status: Ordered gabapentin 300 mg oral capsule 300 mg, 1, capsule, By Mouth, 2 times a day, PRN, # 20 capsule, Refills 0, Tot. Refills 0, Maintenance, Pain , Severe, 11/05/22 17:53:00 EST, Route to Pharmacy Electronically, [facility] #[id number], Partial fill upon patient request if the presc... Start Date: 11/05/22 Stop Date: 11/15/22 Status: Ordered gabapentin 300 mg oral capsule 300 mg, Capsule, By Mouth, Once, STAT, 11/05/22 17:54:00 EST, Stop date 11/05/22 17:54:00 EST Start Date: 11/05/22 Stop Date: 11/05/22 Status: Completed hydrALAZINE 25 mg oral tablet 25 mg, 1, tablet, By Mouth, 3 times a day, discontinue hydralazine 10mg, # 90 tablet, Refills 11, Tot. Refills 11, Maintenance, 06/18/22 13:56:00 EDT, Route to Pharmacy Electronically, [facility] #[id number], Partial fill upon patient request if... Start [...] tablet, 11 Refills, Maintenance, 09/30/22 12:56:00 EST, [facility] #[id number], 163, cm, 09/30/22 11:48:00 EST, Height, 92.8, kg, 09/24/22 22:19:00 EST, Dry Weight Start Date: 09/30/22 Status: Ordered lisinopril 40 mg oral tablet 1 tablet = 40 mg, By Mouth, 2 times a day, increase dose discontinue HCTZ 12.5mg, # 60 tablet, 11 Refills, Maintenance, 09/30/22 12:54:00 EST, Tablet, [facility] #[id number], 163, cm, 09/30/22 11:48:00 EST, Height, 92.8, kg, 09/24/22 22:19:00... Start Date: 09/30/22 Stop Date: 09/25/23 Status: Ordered Matzim LA 360 mg/24 hours oral tablet, extended release 1 tablet, By Mouth, Daily, # 90 tablet, 3 Refills, 02/17/22 13:08:00 EDT, [facility] #[id number], 165, cm, 02/17/22 12:49:00 EDT, Height, 88.9, kg, 02/09/22 15:14:00 EDT, Dry Weight Start Date: 02/17/22 Status: Ordered metFORMIN 500 mg oral tablet, extended release 1 tablet = 500 mg, By Mouth, Daily in AM, discontinue metformin 500mg with meal, # 30 tablet, 11 Refills, Maintenance, 09/30/22 12:51:00 EST, ER Tablet, [facility] #[id number], 163, cm, 09/30/2310:48:00 EST, Height, 92.8, kg, 09/24/22 22:1... Start Date: 09/30/22 Status: Ordered mirtazapine 15 mg oral tablet 0.5 tablet, By Mouth, Daily at bedtime, DECREASED DOSE, # 45 tablet, 1 Refills, Maintenance, 10/20/22 20:06:00 EST, [facility] #[id number], 163, cm, 10/16/22 16:21:00 EST, Height, 92.8, kg, 09/24/22 22:19:00 EST, Dry Weight Start Date: 10/20/22 Status: Ordered montelukast 10 mg oral tablet 1, tablet, By Mouth, Daily at bedtime, SUPPLY., # 90 tablet, Refills 1, Maintenance, 06/18/22 14:04:00 EDT, Route to Pharmacy Electronically, [facility] #[id number], 165, cm, 06/18/22 13:19:00 EDT, Height, 88.9, kg, 02/09/22 15:14:00 EDT, Dry Weight Start Date: 06/18/22 Stop Date: 09/16/22 Status: Ordered Zdv-onz-kdehg medical-grade oxford diabetic shoes, depth or hightop Hwe-yny-jymfc medical-grade oxford diabetic shoes, depth or hightop, [...] Refills, Maintenance, 12/18/21 15:48:00 EDT, EC Capsule, [facility] #[id number], 165, cm, 10/29/21 12:16:00 EST,... Start Date: 12/18/21 Status: Ordered pravastatin 80 mg oral tablet 1 tablet, By Mouth, Daily, # 90 tablet, 1 Refills, Maintenance, 06/27/22 12:04:00 EDT, [facility] #[id number], 165, cm, 06/18/22 13:19:00 EDT, Height, 88.9, kg, 02/09/22 15:14:00 EDT, Dry Weight Start Date: 06/27/22 Status: Ordered Premarin Vaginal 0.625 mg/gm cream with applicator See Instructions, APPLY 1/2 GRAM IN THE VAGINA EVERY WEDNESDAY AND WEDNESDAY, # 30 Gm, 11 Refills, Maintenance, 05/11/22 14:58:00 EDT, [facility] #[id number], 30, APPLY 1/2 GRAM IN THE VAGINA EVERY WEDNESDAY AND WEDNESDAY, 165, cm, 02/23/22 14:24:00 EDT,... Start Date: 05/11/22 Status: Ordered ProAir HFA 90 mcg/inh inhalation aerosol with adapter 2, puffs, Inhalation, 4 times a day, PRN, # 1 each, Refills 11, Tot. Refills 11, Maintenance, 10/16/22 17:00:00 EST, Route to Pharmacy Electronically, [id number], [facility] #[id number], 163, cm, 10/16/22 16:21:00 EST, H... Start [...] 4, 5, 6, 7 Confirmed 08/09/06 Active *[id number] Law Professor Francis Caity Confirmed Active Varicose vein Confirmed [...] Range]: 1 2 3 Height 163 cm (11/05/22 4:45 PM) Weight 90 kg (11/05/22 4:45 PM) Oxygen Saturation [94-100 %] 94 % (11/05/22 5:58 PM) 96 % (11/05/22 4:45 PM) Pulse Rate [55-90 bpm] 68 bpm (11/05/22 5:58 PM) 74 bpm (11/05/22 4:45 PM) Blood Pressure [90-138/55-84 mm Hg] 175/73mm Hg *H* (11/05/22 5:58 PM) 177/75mm Hg *H* (11/05/22 4:45 PM) Respiratory Rate [16-30 br/min] 18 br/min (11/05/22 7:14 PM) 18 br/min (11/05/22 6:14 PM) 18 br/min (11/05/22 5:58 PM) Temperature [96.8-100.4 DegF] 97.8 DegF (11/05/22 4:45 PM) Mode of Delivery (Oxygen) Room air (11/05/22 5:58 PM) Room air (11/05/22 4:45 PM) Temperature Route Temporal (11/05/22 4:45 PM) Dry Weight 90 kg (11/05/22 4:45 PM) Social History Social History Type Response Smoking Status Never (less than 100 in lifetime) entered on: 03/26/21 Sex Note * Cheyanne MCCLAIN, Maulik Goodwin: PERFORM Event Display: Patient Education Leaflets Authored Date: [id number] Leg Swelling in Both Legs ?? [id number] Hinchaz??n en ambas piernas La hinchaz??n de los pies, los tobillos y las piernas se llama edema. Se debe al exceso de l??quidoque se acumula en los tejidos. Debido a la gravedad, el exceso de l??quido que haya en el cuerpo seasienta en la parte m??s baja. Es por ello que las piernas y los pies son los m??s afectados. Algunas de las causas del edema pueden ser: ??? Enfermedades del coraz??n, marialuisa la insuficiencia card??sofia congestiva ??? Estar mucho tiempo depie o sentado ??? Infecci??n en los pies o las piernas ??? Congesti??n de la jenny en las venas delas piernas (insuficiencia venosa) cuando las venas tienen menos elasticidad ??? Las venas de la parte inferior de la pierna est??n dilatadas (v??rices) ??? Drenaje insuficiente del sistema linf??evans ??? Algunos medicamentos, incluidas algunas hormonas marialuisa las pastillas anticonceptivas, algunos medicamentos para la presi??n arterial marialuisa los bloqueadores de los gr del calcio, los esteroides y algunos antidepresivos marialuisa los inhibidores de la MAO y los tric??clicos ??? Per??odos menstruales con retenci??n de l??quidos ??? Muchos tipos de enfermedades renales ??? Insuficiencia hep??lauren o cirrosis ??? Embarazo, en el que es normal cierta hinchaz??n, gorge un aumento repentino de la hinchaz??n de las piernas o del peso puede ser un signo de juliano peligrosa complicaci??n del embarazo llamada eclampsia ??? Nutrici??n deficiente ??? Enfermedad de la tiroides El tratamiento depender?? de la causa de la hinchaz??n de las piernas. Es posible que randle proveedor de atenci??n m??dica le recete pastillas que le glen??n orinar con frecuencia (diur??ticos) para eliminar el exceso de fluidos. Cuidados en el hogar Siga estas recomendaciones para cuidarse en randle casa: ??? Eleve la pierna hinchada mientras est?? acostado o sentado. ??? Si la causa de la hinchaz??n es juliano infecci??n, juliano lesi??n o juliano cirug??a, limite el uso de las piernas el mayor tiempo posible, hasta que los s??ntomas mejoren. ??? Si el proveedor de atenci??n m??dica dice que la hinchaz??n en las piernas se debe a juliano insuficiencia venosa oa v??rices, no se quede sentado o parado en el mismo lugar shaneka mucho tiempo. Cada dos o kim horas, tome un descanso y camine un poco. La caminata en??rgica es un buen ejercicio. Ayuda a que la jenny acumulada en las piernas circule mejor. Pregunte a randle proveedor respecto al uso de las medias de compresi??n para detener la hinchaz??n de las piernas shaneka el d??a. ??? Si el proveedor dice que la hinchaz??n de las piernas se debe a juliano enfermedad del coraz??n, alex juliano dieta con bajo consumo de rylee para evitar la retenci??n excesiva de l??quidos. Tambi??n es posible que necesite medicamentos. ?? Atenci??n de seguimiento Programe juliano sae de seguimiento con el proveedor de atenci??n m??dica, o seg??n le hayan indicado. ?? Cu??ndo debe buscar atenci??n m??dica Llame al proveedor de atenci??n m??dica de inmediato ante cualquiera de las siguientes situaciones: ??? Empeoramiento de la hinchaz??n en ambas piernas o tobillos ??? Hinchaz??n del vientre (abdominal) ??? Enrojecimiento, calor o hinchaz??n en juliano pierna ??? Fiebre de 100.4?F (38?C) o superior, o seg??n le haya indicado el proveedor ??? Color amarillento en la piel o los ojos ??? Aumento depeso r??pido y sin explicaci??n ??? Tener que dormir erguido o usar m??s almohadas ? Cu??ndo llamar al?? 911 Llame al?? 911 o busque atenci??n m??dica de inmediato si tiene alguno de los siguientes s??ntomas:??? Falta de aire o dolor de pecho nuevos ??? La falta de aire o el dolor de pecho empeoran ?? Last Reviewed Date: 2022 ?? [id number] [employer]. Todos los derechos reservados. Esta informaci??n no pretende sustituir la atenci??n m??dica profesional. S??lo randle m??dico puede diagnosticar y tratar un problema de leydi. ?? * Cheyanne MCCLAIN, Maulik Goodwin: PERFORM Event Display: Patient Education Leaflets Authored Date: [id number] Diet, Low Salt 3gm ?? 100 Low-Salt Diet (3 Grams/Day) This diet eliminates foods that are high in salt and restricts the amount of salt that you cook with. It is most often used for patients with high blood pressure, edema (fluid retention), kidney, liver, and heart disease. Table salt contains the mineral sodium. The body needs sodium to work normally. But too much sodiumcan make your health problems worse. Your health care provider is recommending a low-salt (also called low-sodium) diet for you. Your total daily allowance of salt (sodium) is 3 grams. This equals 3,000 milligrams (mg). It is less than 1 teaspoon of table salt. This means you can have only about 750 mg of sodium at each meal, and 375 mg of sodium for two snacks per day. When you cook, limit the salt you use. And if you can avoid using salt, even better. Do not add salt at the table. So, throw away the saltshaker! When shopping, read the package labels. Salt is often called ???sodium?? on the label. Choose foods that are salt-free, low salt, or very low salt. Note that foods with reduced salt or reduced sodium may not??lower your salt intake enough. ? Beverages Ok: Tea, coffee, carbonated beverages, juices Avoid: Flavored international coffees, electrolyte replacement drinks, sports beverages Bread and cereals Ok: Low sodium bread and rolls, cereals, cakes; low-salt crackers, matzo crackers Avoid: Salted crackers, pretzels, popcorn; greek toast, pancakes, muffins Desserts Ok: Ice cream, frozen yogurt, juice bars, gelatin, cookies and pies, sugar, honey, jelly, hard candy Avoid: Most pies, cakes and cookies prepared or processed with salt, instant pudding Meats Ok: All fresh meat, fish, poultry, low-salt tuna, eggs, egg substitute Avoid: Smoked, pickled, brine-cured, or salted meats and fish. This??includes krueger, chipped beef, corned beef, hot dogs, luncheon meats, ham, kosher meats, salt pork, sausage, canned tuna, salted codfish, smoked??salmon, bishop, sardines, or anchovies. Dairy Ok: Milk, chocolate milk, hot chocolate mix, ???low-salt?? cheeses, and yogurt Avoid: Processed cheese, cheese spreads, Roquefort, Camembert, and cottage cheese, buttermilk, instant breakfast drink Beans, potatoes, and pasta Ok: Dry beans, split peas, lentils, potatoes, rice, macaroni, pasta, spaghetti without added salt Avoid: Potato chips, tortilla chips, and similar products Soups Ok: Low-salt soups and broths made with allowed foods Avoid: Bouillon cubes, soups with smoked or salted meats, regular soup and broth Vegetables Ok: Most are okay; low-salt tomato and vegetable juices Avoid: Sauerkraut and other brine-soaked vegetables, pickles and other pickled vegetables, tomato juice, olives Seasoning and spices Ok: Most seasonings are okay. Good substitutes for salt include: fresh herb blends, hot sauce, lemon, garlic, miller, vinegar, dry mustard, parsley, cilantro, horseradish, tomato paste, regular margarine, mayonnaise, butter, cream cheese, vegetable oil, cream, low-salt salad dressing and gravy Avoid: Regular ketchup, relishes, pickles, soy sauce, teriyaki sauce, Worcestershire sauce, BBQ sauce, tartar sauce, meat tenderizer, chili sauce, regular gravy, regular salad dressing ? Patient Care team information Care Team Personnel Name: Haley Gonzalez RN Position: [facility] RN Member Role: Primary Care Nurse Name: Jessica Perrin MD Position: [facility] Primary Care Physician Member Role: PCP Address: Address: [address] [place] [address] Name: Cheyanne MCCLAIN, Maulik Goodwin Position: [facility] Resident Member Role: Admitting Physician Address: Address: [address] [place] [address] Name: Jose Thomas Position: [facility] ED OA Member Role: Passenger Agent Name: Juarez Tyler RN Position: [facility] ED RN W/OE and Tasks Member Role: Patient Care Provider Care Team Related Persons Name: SANDY BOYCE Address: home [address] [place] [address] Name: COLT BOYCE Address: [address] [place] [address]
--- OUTSIDE RECORDS SUMMARY | 2024-07-06 12:07 | XMS_ITS | Continuity of Care Document ---
Author Organization [facility] Address [address] [place] [address]- Care Team Providers Care Fuel Storage Technician Name Role Phone Marychuy MCCLAIN, Jessica Primary Care Physician Encounter [facility] Date(s): 12/07/22 - 01/06/23 [facility] [address]- [place] Allergies, Adverse Reactions, Alerts Substance Reaction [...] Vaccine Date Status Refusal Reason SARS-CoV-2 mRNA (yevklye-ohyb-jnylx) vax 02/17/22 Given influenza virus vaccine, inactivated [...] tablet, 11 Refills, Maintenance, 05/13/22 11:27:00 EDT, [facility] #[id number], Partial fill upon cherelle... Start Date: 05/13/22 Status: Ordered albuterol 0.083% inhalation solution 3 mL = 2.5 mg, Inhalation, Every 6 hours, # 25 each, 5 Refills, Maintenance, 08/12/22 15:02:00 EST,[facility] #[id number], 165, cm, 06/18/22 13:19:00 EDT, Height, 88.9, kg, 02/09/22 15:14:00 EDT, Dry Weight Start Date: 08/12/22 Stop Date: 02/08/23 Status: Ordered apixaban 5 mg oral tablet 1 tablet = 5 mg, By Mouth, 2 times a day, # 180 tablet, 0 Refills, Maintenance, 12/16/22 16:34:00 EDT, Tablet, [facility] #[id number], Partial fill upon patient request if the prescription is for a schedule II opioid drug., 163, cm, 12/16/22 7:58... Start Date: 12/16/22 Stop Date: 03/16/23 Status: Ordered budesonide 0.5 mg/2 mL inhalation suspension 0.5 mg, 2, mL, Neb, 2 times a day, # 120 mL, Refills 11, Tot. Refills 11, Maintenance, 10/16/22 16:58:00 EST, Suspension, Route to Pharmacy Electronically, [id number], [facility] #[id number], 163, cm, 10/16/22 16:21:00 E... Start Date: 10/16/22 Status: Ordered budesonide 0.5 mg/2 mL inhalation suspension 0.5 mg, 2, mL, Neb, 2 times a day, # 120 mL, Refills 11, Tot. Refills 11, Maintenance, 08/13/22 15:24:00 EST, Suspension, Route to Pharmacy Electronically, [id number], [facility] #[id number], 165, cm, 06/18/22 13:19:00 E... Start Date: 08/13/22 Status: Ordered calcium (as citrate)-vitamin D 315 mg-250 intl units oral tablet 2 tablet, By Mouth, 2 times a day, # 360 tablet, 0 Refills, Maintenance, 12/07/22 14:46:00 EDT, [facility] #[id number], 90, 2 tablet By Mouth 2 times a day, 163, cm, 11/05/22 16:59:00 EST, Height, 90, kg, 11/05/22 16:59:00 EST, Dry Weight Start Date: 12/07/22 Status: Ordered citalopram 20 mg oral tablet 20 mg, 1, tablet, By Mouth, Daily, # 90 tablet, Refills 3, Tot. Refills 3, Maintenance, 07/08/22 14:31:00 EDT, Route to Pharmacy Electronically, [facility] #[id number], is awared of interaction w nicky, 165, cm, 06/18/22 13:19:00 EDT, He... Start Date: 07/08/22 Status: Ordered Clarinex 5 mg oral tablet 1 tablet = 5 mg, By Mouth, Daily, # 90 tablet, 3 Refills, Maintenance, 04/29/22 12:53:00 EDT, Tablet, [facility] #[id number], 165, cm, 02/23/22 14:24:00 EDT, Height, 88.9, [...] 0 Refills, Soft Stop, 10/22/21 10:11:00 EST, [facility] #[id number], 165, cm, 10/22/21 9:05:00 EST, Height, 89.5, kg, 04/23/2121:43:00 EDT, Dry Weight Start Date: 10/22/21 Status: Ordered fluticasone 50 mcg/inh nasal spray See Instructions, SPRAY 2 TIMES IN EACH NOSTRILS EVERY DAY. NEEDED FOR ALLERGY SEASON. WHEN SPRAYING KEEP HEAD DOWN, # 16 Gm, 11 Refills, 02/17/22 13:14:00 EDT, [facility] #[id number], 30, SPRAY 2 TIMES IN EACH NOSTRILS EVERY DAY. NEEDED FO... Start Date: 02/17/22 Status: Ordered formoterol 10 mcg/mL inhalation solution 2 mL = 20 mcg, Inhalation, 2 times a day, using a continuous flow nebulizer, # 120 mL, 11 Refills, Maintenance, 10/16/22 16:58:00 EST, Solution, [facility] #[id number], Partial fill upon patientrequest if the prescription [...] 11/05/22 17:53:00 EST, Route to Pharmacy Electronically, [facility] #[id number], Partial fill upon patient request if the prescription is for a schedule II opi... Start Date: 11/05/22 Stop Date: 11/10/22 Status: Ordered gabapentin 300 mg oral capsule 300 mg, 1, capsule, By Mouth, 2 times a day, PRN, # 20 capsule, Refills 0, Tot. Refills 0, Maintenance, Pain , Severe, 11/05/22 17:53:00 EST, Route to Pharmacy Electronically, [facility] #[id number], Partial fill upon patient request if the presc... Start Date: 11/05/22 Stop Date: 11/15/22 Status: Ordered hydrALAZINE 25 mg oral tablet 25 mg, 1, tablet, By Mouth, 3 times a day, discontinue hydralazine 10mg, # 90 tablet, Refills 11, Tot. Refills 11, Maintenance, 06/18/22 13:56:00 EDT, Route to Pharmacy Electronically, [facility] #[id number], Partial fill upon patient request if... Start [...] 01/16/23 14:39:00 EDT, 12/28/22 14:38:00 EDT, Cream, [facility] #[id number], Partial fill upon patient request if the prescription is for a schedule II opioid drug., 1 application... Start Date: 12/28/22 Stop Date: 01/16/23 Status: Ordered levothyroxine 0.05 mg oral tablet 1 tablet, By Mouth, Daily, # 30 tablet, 11 Refills, Maintenance, 09/30/22 12:56:00 EST, [facility] #[id number], 163, cm, 09/30/22 11:48:00 EST, Height, 92.8, kg, 09/24/22 22:19:00 EST, Dry Weight Start Date: 09/30/22 Status: Ordered lisinopril 40 mg oral tablet 1 tablet = 40 mg, By Mouth, 2 times a day, increase dose discontinue HCTZ 12.5mg, # 60 tablet, 11 Refills, Maintenance, 09/30/22 12:54:00 EST, Tablet, [facility] #[id number], 163, cm, 09/30/22 11:48:00 EST, Height, 92.8, kg, 09/24/22 22:19:00... Start Date: 09/30/22 Stop Date: 09/25/23 Status: Ordered Matzim LA 360 mg/24 hours oral tablet, extended release 1 tablet, By Mouth, Daily, # 90 tablet, 3 Refills, 02/17/22 13:08:00 EDT, [facility] #[id number], 165, cm, 02/17/22 12:49:00 EDT, Height, 88.9, kg, 02/09/22 15:14:00 EDT, Dry Weight Start Date: 02/17/22 Status: Ordered metFORMIN 500 mg oral tablet, extended release 1 tablet = 500 mg, By Mouth, Daily in AM, discontinue metformin 500mg with meal, # 30 tablet, 11 Refills, Maintenance, 09/30/22 12:51:00 EST, ER Tablet, [facility] #[id number], 163, cm, 09/30/2310:48:00 EST, Height, 92.8, kg, 09/24/22 22:1... Start Date: 09/30/22 Status: Ordered mirtazapine 15 mg oral tablet 0.5 tablet, By Mouth, Daily at bedtime, DECREASED DOSE, # 45 tablet, 1 Refills, Maintenance, 10/20/22 20:06:00 EST, [facility] #[id number], 163, cm, 10/16/22 16:21:00 EST, Height, 92.8, kg, 09/24/22 22:19:00 EST, Dry Weight Start Date: 10/20/22 Status: Ordered montelukast 10 mg oral tablet 1, tablet, By Mouth, Daily at bedtime, SUPPLY., # 90 tablet, Refills 1, Tot. Refills 1, Maintenance, 12/07/22 14:50:00 EDT, Route to Pharmacy Electronically, [facility] #[id number], 163, cm, 11/05/22 16:59:00 EST, Height, 90, kg, 11/05/22 16:59:0... Start Date: 12/07/22 Stop Date: 06/05/23 Status: Ordered Seb-two-hwxvv medical-grade oxford diabetic shoes, depth or hightop Pgt-zlf-djfly medical-grade oxford diabetic shoes, depth or hightop, [...] Refills, Maintenance, 12/07/22 14:49:00 EDT, EC Capsule, [facility] #[id number], 163, cm, 11/05/22 16:59:00 EST,... Start Date: 12/07/22 Status: Ordered pravastatin 80 mg oral tablet 1 tablet, By Mouth, Daily, # 90 tablet, 1 Refills, Maintenance, 12/07/22 14:47:00 EDT, [facility] #[id number], 163, cm, 11/05/22 16:59:00 EST, Height, 90, kg, 11/05/22 16:59:00 EST, Dry Weight Start Date: 12/07/22 Status: Ordered Premarin Vaginal 0.625 mg/gm cream with applicator See Instructions, APPLY 1/2 GRAM IN THE VAGINA EVERY WEDNESDAY AND WEDNESDAY, # 30 Gm, 11 Refills, Maintenance, 05/11/22 14:58:00 EDT, [facility] #[id number], 30, APPLY 1/2 GRAM IN THE VAGINA EVERY WEDNESDAY AND WEDNESDAY, 165, cm, 02/23/22 14:24:00 EDT,... Start Date: 05/11/22 Status: Ordered ProAir HFA 90 mcg/inh inhalation aerosol with adapter 2, puffs, Inhalation, 4 times a day, PRN, # 1 each, Refills 11, Tot. Refills 11, Maintenance, 10/16/22 17:00:00 EST, Route to Pharmacy Electronically, [id number], [facility] #[id number], 163, cm, 10/16/22 16:21:00 EST, H... Start [...] 4, 5, 6, 7 Confirmed 08/09/06 Active [id number] Associate Director Yee Ceballos Confirmed Active Varicose vein Confirmed [...] Personnel Name: Haley Gonzalez RN Position: [facility] RN Member Role: Primary Care Nurse Name: Jessica Perrin MD Position: [facility] Primary Care Physician Member Role: PCP Address: Address: [address] [place] [address]- Care Team Related Persons Name: SANDY BOYCE Address: home [address] [place] [address] Name: COLT BOYCE Address: [place] [address] [place] [address]
--- OUTSIDE RECORDS SUMMARY | 2024-07-06 12:07 | XMS_ITS | Continuity of Care Document ---
Author Organization [facility] Address [address] [place] [id number]- Care Team Providers Care Broker Agricultural Produce Name Role Phone Marychuy MCCLAIN, Jessica Primary Care Physician [facility] Date[facility]s): 04/08/23 - 05/08/23 [facility] [address] [place], [place] [address] Attending Physician: Dominik Elizabeth Admitting Physician: Dominik [...] and Recorded Vaccine Date Status Refusal Reason [id number] 12y+ bivalent booster vax 03/24/23 Given [id number] 12y+ bivalent booster vax 07/28/22 Recorded influenza [...] inactivated 5 07/29/06 Gi javon SARS-CoV-2 mRNA (ymevvsr-ccco-nbpeh) vax 02/17/22 Given SARS-CoV-2 (COVID-19) mRNA BNT-162b2 [...] tablet, 11 Refills, Maintenance, 03/24/23 10:28:00 EDT, [facility] #[id number], 160, cm, 03/24/23 10:19:00 EDT, Height, 89.54, kg, 0... Start Date: 03/24/23 Status: Ordered albuterol 0.083% inhalation solution 3 mL = 2.5 mg, Inhalation, Every 6 hours, # 25 each, 5 Refills, Maintenance, 08/12/22 15:02:00 EST,[facility] #[id number], 165, cm, 06/18/22 13:19:00 EDT, Height, 88.9, [...] 16:58:00 EST, Suspension, Route to Pharmacy Electronically, [id number], [facility] #[id number], 163, cm, 10/16/22 16:21:00 E... Start Date: 10/16/22 Status: Ordered calcium (as citrate)-vitamin D 315 mg-250 intl units oral tablet 2 tablet, By Mouth, 2 times a day, # 360 tablet, 3 Refills, Maintenance, 03/24/23 10:33:00 EDT, [facility] #[id number], 2 tablet By Mouth 2 times a day,x90 days, 160, cm, 03/24/23 10:19:00 EDT, Height, 89.54, kg, 02/09/23 16:45:00 EDT, Dry Weight Start Date: 03/24/23 Stop Date: 03/18/24 Status: Ordered ciclopirox 8% topical solution 1 application, Topically, Daily, as directed to affected area toenails, # 6.6 mL, 11 Refills, Maintenance, 03/24/23 10:42:00 EDT, Solution, [facility] #[id number], ., 1 application Topically Daily,Instr:as directed; to affected area toenails, 16... Start Date: 03/24/23 Status: Ordered citalopram 20 mg oral tablet 20 mg, 1, tablet, By Mouth, Daily, # 90 tablet, Refills 3, Tot. Refills 3, Maintenance, 03/24/23 10:23:00 EDT, Route to Pharmacy Electronically, [facility] #[id number], is awared of interaction w prilosec, 160, cm, 03/24/23 10:19:00 EDT, He... Start Date: 03/24/23 Status: Ordered Clarinex 5 mg oral tablet 1 tablet = 5 mg, By Mouth, Daily, # 90 tablet, 3 Refills, Maintenance, 03/24/23 10:23:00 EDT, Tablet, [facility] #[id number], 160, cm, 03/24/23 10:19:00 EDT, Height, 89.54, [...] tablet, 3 Refills, Maintenance, 03/24/23 10:04:00 EDT, [facility] #[id number], 160, cm, 03/24/23 9:26:00 EDT, Height, 89.54, kg, 02/09/23 16:45:00 EDT, Dry Weight Start Date: 03/24/23 Status: Ordered EPINEPHrine 0.3 mg injectable solution = 0.3 mg, Intramuscular, Once, PRN Anaphylactic Reaction, # 1 each, 0 Refills, Soft Stop, 10/22/21 10:11:00 EST, [facility] #[id number], 165, cm, 10/22/21 9:05:00 EST, Height, 89.5, kg, 04/23/2121:43:00 EDT, Dry Weight Start Date: 10/22/21 Status: Ordered fluticasone 50 mcg/inh nasal spray 2 sprays, Nares, Both, Daily, Use every day during allergy season. While using spray keep head down., # 3 each, 3 Refills, Maintenance, 03/24/23 10:28:00 EDT, [facility] #[id number], ., 2 spraysNares, Both Daily,x90 days,Instr:Use every day duri... Start Date: 03/24/23 Stop Date: 03/18/24 Status: Ordered formoterol 10 mcg/mL inhalation solution 2 mL = 20 mcg, Inhalation, 2 times a day, using a continuous flow nebulizer, # 120 mL, 11 Refills, Maintenance, 10/16/22 16:58:00 EST, Solution, [facility] #[id number], Partial fill upon patientrequest if the prescription [...] Replace Required Details, [facility] Start Date: 03/24/23 Status: Ordered Lancets See [...] tablet, 3 Refills, Maintenance, 03/24/23 10:31:00 EDT, [facility] #[id number], 160, cm, 03/24/23 10:19:00 EDT, Height, 89.54, kg, 02/09/23 16:45:00 EDT, Dry Weight Start Date: 03/24/23 Stop Date: 03/18/24 Status: Ordered lisinopril 40 mg oral tablet 1 tablet = 40 mg, By Mouth, Daily in AM, 11 AM Decreased dose, # 90 tablet, 3 Refills, Maintenance,03/24/23 10:12:00 EDT, Tablet, [facility] #[id number], 160, cm, 03/24/23 9:26:00 EDT, Height, 89.54, kg, 02/09/23 16:45:00 EDT, Dry Weight Start Date: 03/24/23 Stop Date: 03/18/24 Status: Ordered Matzim LA 180 mg/24 hours oral tablet, extended release 1 tablet = 180 mg, By Mouth, Daily in AM, Discontinue diltiazem 360 mg Takes at 11 AM, # 90 tablet,3 Refills, Maintenance, 03/24/23 9:58:00 EDT, ER Tablet, [facility] #[id number], 160, cm, 03/24/23 9:26:00 EDT, Height, 89.54, kg, 02/09/23 16:45... Start Date: 03/24/23 Stop Date: 03/18/24 Status: Ordered metFORMIN 500 mg oral tablet, extended release 1 tablet = 500 mg, By Mouth, 2 times a day, with meal Increase dose, # 180 tablet, 3 Refills, Maintenance, 03/24/23 10:19:00 EDT, ER Tablet, [facility] #[id number], 160, cm, 03/24/23 10:19:00 EDT, Height, 89.54, kg, 02/09/23 16:45:00 EDT, Dry W... Start Date: 03/24/23 Stop Date: 03/18/24 Status: Ordered mirtazapine 15 mg oral tablet 0.5 tablet, By Mouth, Daily at bedtime, # 45 tablet, 3 Refills, Maintenance, 03/24/23 10:22:00 EDT,[facility] #[id number], 160, cm, 03/24/23 10:19:00 EDT, Height, 89.54, kg, 02/09/23 16:45:00 EDT, Dry Weight Start Date: 03/24/23 Stop Date: 03/18/24 Status: Ordered montelukast 10 mg oral tablet 1, tablet, By Mouth, Daily at bedtime, SUPPLY., # 90 tablet, Refills 3, Tot. Refills 3, Maintenance, 06/05/23 14:50:00 EDT, Route to Pharmacy Electronically, [facility] #[id number], 160, cm, 03/24/23 10:19:00 EDT, Height, 89.54, kg, 02/09/23 16:4... Start Date: 06/05/23 Status: Ordered Xno-yxp-wkzzn medical-grade oxford diabetic shoes, depth or hightop Fzs-qgz-vgnss medical-grade oxford diabetic shoes, depth or hightop, [...] capsule, 3 Refills, Maintenance, 03/24/23 10:28:00 EDT, [facility] #[id number], 160, cm, 03/24/23 10:19:00 EDT, Height, 89.54, kg, 0... Start Date: 03/24/23 Stop Date: 03/18/24 Status: Ordered pravastatin 80 mg oral tablet 1 tablet, By Mouth, Daily, # 90 tablet, 3 Refills, Maintenance, 03/24/23 10:32:00 EDT, [facility] #[id number], 160, cm, 03/24/23 10:19:00 EDT, Height, 89.54, kg, 02/09/23 16:45:00 EDT, Dry Weight Start Date: 03/24/23 Stop Date: 03/18/24 Status: Ordered Premarin Vaginal 0.625 mg/gm cream with applicator See Instructions, APPLY 1/2 GRAM IN THE VAGINA EVERY WEDNESDAY AND WEDNESDAY, # 30 Gm, 11 Refills, Maintenance, 03/24/23 10:23:00 EDT, [facility] #[id number], 30, APPLY 1/2 GRAM IN THE VAGINA EVERY WEDNESDAY AND WEDNESDAY, 160, cm, 03/24/23 10:19:00 EDT,... Start Date: 03/24/23 Status: Ordered ProAir HFA 90 mcg/inh inhalation aerosol with adapter 2, puffs, Inhalation, 4 times a day, PRN, Fill when patient request it, # 1 each, Refills 5, Tot. Refills 5, Maintenance, 03/24/23 10:30:00 EDT, Route to Pharmacy Electronically, [id number], [facility] #[id number], 160,... Start Date: 03/24/23 Status: Ordered Shoes [...] in AM, at 11 AM Given by gamer, Dr. Indio Mason, # 30 tablet, Refills 0, Maintenance, 10/16/22 16:24:00 EST Start Date: 2/3/23 Status: Ordered Test Strips See Instructions, # [...] day, PRN itching Apply to lower extremities Stateless, # 30 Gm, 2Refills, Maintenance, 03/24/23 10:34:00 EDT, [facility] #[id number], 1 application Topically 3times a day,Instr:PRN itching [...] 5, 6, 7, 8 Confirmed 08/09/06 Active [id number] Language Instructor Yee Ceballos Confirmed Active Varicose vein Confirmed [...] Perrin MD Position: [facility] Physician - Primary Care Member Role: PCP Address: Address: [address] [place] [address]- Care Team Related Persons Name: SANDY BOYCE Address: home [address] [place] [address] Name: COLT BOYCE Address: [address] [place] [address]
--- OUTSIDE RECORDS SUMMARY | 2024-07-06 12:07 | XMS_ITS | Continuity of Care Document ---
Author Organization [facility] Address [address] [place] [id number]- Care Team Providers Care Panel Monitor Name Role Phone Marychuy MCCLAIN, Jessica Primary Care Physician [facility]counter [facility] Date(s): 02/14/24 - 03/15/[address] [address] Attending Physician: Dominik Elizabeth Admitting Physician: [...] virus vaccine, inactivated 5 07/29/06 Gi javon [id number] 12y+ bivalent booster vax 03/24/23 Given [id number] 12y+ bivalent booster vax 07/28/22 Recorded SARS-CoV-2 mRNA (plbuvvl-eusb-haxbf) vax 02/17/22 Given SARS-CoV-2 (COVID-19) mRNA BNT-162b2 [...] Refills, Maintenance, 01/19/24 8:32:00 EDT, ER Tablet, [facility] #[id number], Partial fill upon patient request if th... Start Date: 01/19/24 Status: Ordered Albuterol (Eqv-ProAir HFA) 90 mcg/inh inhalation aerosol 2 puffs, Inhalation, Every 6 hours, PRN Wheezing/Shortness of Breath, # 8.5 Gm, 5 Refills, Maintenance, 01/19/24 8:30:00 EDT, [facility] #[id number], If pump is not covered, it can [...] 01/19/24 8:40:00 EDT, Route to Pharmacy Electronically, [id number], [facility] #[id number], 165, cm, 01/19/24 7:55:00 EDT, Height, 85.... Start Date: 01/19/24 Status: Ordered calcium (as citrate)-vitamin D 315 mg-250 intl units oral tablet 2 tablet, By Mouth, 2 times a day, # 360 tablet, 3 Refills, Maintenance, 03/18/24 10:33:00 EDT, [facility] #[id number], 2 tablet By Mouth 2 times a [...] Stop 03/18/24 10:33:00 EDT, 03/24/23 10:33:00 EDT, [facility] #[id number], 160, cm, 03/24/23 10:19:00 EDT, Height, 89.54, kg, 02/09/23 16:45:00 EDT, Dry Weight Start Date: 03/24/23 Stop Date: 03/18/24 Status: Ordered ciclopirox 8% topical solution 1 application, Topically, Daily, as directed to affected area toenails, # 6.6 mL, 11 Refills, Maintenance, 01/19/24 9:20:00 EDT, Solution, [facility] #[id number], ., 1 application Topically Daily,Instr:as directed; to affected area toenails, 165... Start Date: 01/19/24 Status: Ordered Clarinex 5 mg oral tablet 1 tablet = 5 mg, By Mouth, Daily, # 90 tablet, 3 Refills, Maintenance, 03/18/24 10:23:00 EDT, Tablet, [facility] #[id number], 165, cm, 01/19/24 7:55:00 EDT, Height, 85.45, kg, 12/23/23 9:04:00 EDT, Dry Weight Start Date: 03/18/24 Stop Date: 03/13/25 Status: Ordered Clarinex 5 mg oral tablet 1 tablet = 5 mg, By Mouth, Daily, for 90 days, # 90 tablet, 3 Refills, Hard Stop 03/18/24 10:23:00 EDT, 03/24/23 10:23:00 EDT, Tablet, [facility] #[id number], 160, cm, 03/24/23 10:19:00 EDT, Height, 89.54, [...] 11 Refills, Maintenance, 01/19/24 8:42:00 EDT, Gel, [facility] #[id number], ., 165, cm, 01/19/24 7:55:00 EDT, Height, 85.45, kg, 12/23/23 9:04:00 EDT,Dry Weight Start Date: 01/19/24 Stop Date: 07/05/24 Status: Ordered Eliquis 5 mg oral tablet 1 tablet, By Mouth, 2 times a day, # 180 tablet, 3 Refills, Maintenance, 01/19/24 9:20:00 EDT, [facility] #[id number], 165, cm, 01/19/24 7:55:00 EDT, Height, 85.45, kg, 12/23/23 9:04:00 EDT, DryWeight Start Date: 01/19/24 Status: Ordered EPINEPHrine 0.3 mg injectable solution = 0.3 mg, Intramuscular, Once, PRN Anaphylactic Reaction, # 1 each, 0 Refills, Soft Stop, 10/22/21 10:11:00 EST, [facility] #[id number], 165, cm, 10/22/21 9:05:00 EST, Height, 89.5, kg, 04/23/2121:43:00 EDT, Dry Weight Start Date: 10/22/21 Status: Ordered escitalopram 10 mg oral tablet 1 tablet = 10 mg, By Mouth, Daily, discontinue citalopram, # 30 tablet, 11 Refills, Maintenance, 01/19/24 8:34:00 EDT, Tablet, [facility] #[id number], Partial fill upon patient request if the prescription is for a schedule II opioid drug., 165, c... Start Date: 01/19/24 Status: Ordered fluticasone 50 mcg/inh nasal spray 2 sprays, Nares, Both, Daily, Use every day during allergy season. While using spray keep head down., # 3 each, 3 Refills, Maintenance, 03/18/24 10:28:00 EDT, [facility] #[id number], ., 2 spraysNares, Both Daily,x90 days,Instr:Use every day duri... Start Date: 03/18/24 Stop Date: 03/13/25 Status: Ordered formoterol 10 mcg/mL inhalation solution See Instructions, USE 2 ML VIA NEBULIZER TWICE DAILY USING A CONTINUOUS FLOW VIA NEBULIZER, # 120 mL, 11 Refills, Maintenance, 01/19/24 8:40:00 EDT, [facility] #[id number], 165, cm, 01/19/24 7:55:00 EDT, Height, 85.45, kg, 12/23/23 9:04:00 EDT, D... Start Date: 01/19/24 Status: Ordered hydrALAZINE 25 mg oral tablet See Instructions, By mouth 2 tab in 7 AM, 1 tab at1PM and 2 PM at 4PM 90-day supply, # 450 tablet, Refills 3, Tot. Refills 3, Maintenance, 01/19/24 9:19:00 EDT, Instructions Replace Required Details,Route to Pharmacy Electronically, [facility].. Start Date: 01/19/24 Status: Ordered Juxtafit Knee-high [...] tablet, 3 Refills, Maintenance, 03/18/24 10:31:00 EDT, [facility] #[id number], 165, cm, 01/19/24 7:55:00 EDT, Height, 85.45, kg, 12/23/23 9:04:00 EDT, Dry Weight Start Date: 03/18/24 Stop Date: 03/13/25 Status: Ordered levothyroxine 0.05 mg oral tablet 1 tablet, By Mouth, Daily, for 90 days, # 90 tablet, 3 Refills, Hard Stop 03/18/24 10:31:00 EDT, 03/24/23 10:31:00 EDT, [facility] #[id number], 160, cm, 03/24/23 10:19:00 EDT, Height, 89.54, kg,02/09/23 16:45:00 EDT, Dry Weight Start Date: 03/24/23 Stop Date: 03/18/24 Status: Ordered lisinopril 40 mg oral tablet 1 tablet = 40 mg, By Mouth, Daily in AM, 11 AM Decreased dose, # 90 tablet, 3 Refills, Maintenance,03/18/24 10:12:00 EDT, Tablet, [facility] #[id number], 165, cm, 01/19/24 7:55:00 EDT, Height, 85.45, kg, 12/23/23 9:04:00 EDT, Dry Weight Start Date: 03/18/24 Stop Date: 03/13/25 Status: Ordered lisinopril 40 mg oral tablet 1 tablet = 40 mg, By Mouth, Daily in AM, for 90 days, 11 AM Decreased dose, # 90 tablet, 3 Refills,Hard Stop 03/18/24 10:12:00 EDT, 03/24/23 10:12:00 EDT, Tablet, [facility] #[id number], 160, cm, 03/24/23 9:26:00 EDT, Height, 89.54, kg, ... Start Date: 03/24/23 Stop Date: 03/18/24 Status: Ordered Matzim LA 180 mg/24 hours oral tablet, extended release 1 tablet = 180 mg, By Mouth, Daily in AM, Take at 11 AM, # 90 tablet, 3 Refills, Maintenance, 03/18/24 9:58:00 EDT, ER Tablet, [facility] #[id number], 165, cm, 01/19/24 7:55:00 EDT, Height, 85.45, [...] 9:58:00 EDT, 03/24/23 9:58:00 EDT, ER Tablet, [facility] #[id number], 160, cm, 03/24/23 9:26:00 EDT, H... Start Date: 03/24/23 Stop Date: 03/18/24 Status: Ordered MetFORMIN (Eqv-Glucophage XR) 500 mg oral tablet, extended release 1 tablet, By Mouth, 2 times a day with meals, INCREASE DOSE, # 180 tablet, 3 Refills, Maintenance, 12/22/23 16:13:00 EDT, [facility] #[id number], 165, cm, 12/20/23 5:43:00 EDT, Height, 84.5, kg,12/19/23 17:15:00 EDT, Dry Weight Start Date: 12/22/23 Status: Ordered metoprolol 25 mg oral tablet, extended release 25 mg, 1, tablet, By Mouth, Daily, # 30 tablet, Refills 11, Tot. Refills 11, Maintenance, 01/19/24 8:40:00 EDT, Route to Pharmacy Electronically, [facility] #[id number], 165, cm, 01/19/24 7:55:00 EDT, Height, 85.45, kg, 12/23/23 9:04:00 EDT, Dry... Start Date: 01/19/24 Status: Ordered mirtazapine 15 mg oral tablet 0.5 tablet, By Mouth, Daily at bedtime, # 45 tablet, 3 Refills, Maintenance, 03/18/24 10:22:00 EDT,[facility] #[id number], 165, cm, 01/19/24 7:55:00 EDT, Height, 85.45, kg, 12/23/23 9:04:00 EDT, Dry Weight Start Date: 03/18/24 Stop Date: 03/13/25 Status: Ordered mirtazapine 15 mg oral tablet 0.5 tablet, By Mouth, Daily at bedtime, for 90 days, # 45 tablet, 3 Refills, Hard Stop 03/18/24 10:22:00 EDT, 03/24/23 10:22:00 EDT, [facility] #[id number], 160, cm, 03/24/23 10:19:00 EDT, Height, 89.54, kg, 02/09/23 16:45:00 EDT, Dry Weight Start Date: 03/24/23 Stop Date: 03/18/24 Status: Ordered montelukast 10 mg oral tablet 1, tablet, By Mouth, Daily at bedtime, SUPPLY., # 90 tablet, Refills 3, Tot. Refills 3, Maintenance, 06/05/23 14:50:00 EDT, Route to Pharmacy Electronically, [facility] #[id number], 160, cm, 03/24/23 10:19:00 EDT, Height, 89.54, kg, 02/09/23 16:4... Start Date: 06/05/23 Status: Ordered Nucala Prefilled Autoinjector 100 mg/mL subcutaneous solution = 100 mg, Subcutaneous Infusion, Every 28 days, j45.40, # 1 each, 11 Refills, Maintenance, 01/12/2414:58:00 EDT, [facility], Partial fill upon patient request if the prescription isfor a schedule II opioid drug., 165, cm, 01/04/24 1... Start Date: 01/13/24 Status: Ordered Vhd-rxh-vigvs medical-grade oxford diabetic shoes, depth or hightop Ekx-dwn-akkav medical-grade oxford diabetic shoes, depth or hightop, [...] capsule, 3 Refills, Maintenance, 03/18/24 10:28:00 EDT, [facility] #[id number], 165, cm, 01/19/24 7:55:00 EDT, Height, 85.45, kg, 12/23/23 9:04:00 EDT, Dry Weight Start Date: 03/18/24 Stop Date: 03/13/25 Status: Ordered omeprazole 20 mg oral enteric coated capsule 1 capsule = 20 mg, By Mouth, Daily, for 90 days, 30 minutes before breakfast MD is aware of interaction with citalopram, # 90 capsule, 3 Refills, Hard Stop 03/18/24 10:28:00 EDT, 03/24/23 10:28:00 EDT, [facility] #[id number], 160, cm, 03/24/23 1... Start Date: 03/24/23 Stop Date: 03/18/24 Status: Ordered pravastatin 80 mg oral tablet 1 tablet, By Mouth, Daily, # 90 tablet, 3 Refills, Maintenance, 03/24/23 10:32:00 EDT, [facility] #[id number], 160, cm, 03/24/23 10:19:00 EDT, Height, 89.54, kg, 02/09/23 16:45:00 EDT, Dry Weight Start Date: 03/24/23 Stop Date: 03/18/24 Status: Ordered Premarin Vaginal 0.625 mg/gm cream with applicator See Instructions, APPLY 1/2 GRAM IN THE VAGINA EVERY WEDNESDAY AND WEDNESDAY, # 30 Gm, 11 Refills, Maintenance, 01/19/24 9:20:00 EDT, [facility] #[id number], 30, APPLY 1/2 GRAM IN THE VAGINA [...] in AM, at 11 AM Given by steel post installer, Dr. Indio Mason, # 30 tablet, Refills [...] day, PRN itching Apply to lower extremities [place]er, # 30 Gm, 2Refills, Maintenance, 02/23/24 8:27:00 EDT, [facility] #[id number], 1 application Topically 3 times a day,Instr:PRN itching ; Apply to lower e... Start Date: 02/23/24 Status: Ordered Wixela Inhub 100 mcg-50 mcg inhalation powder 1 inhalation, Inhalation, 2 times a day, J45..0rinse mouth and throat after use, # 1 each, 5 Refills, Maintenance, 01/26/24 9:28:00 EDT, Powder, [facility] #[id number], Partial fill upon patientrequest if the prescription [...] 5, 6, 7, 8 Confirmed 08/09/06 Active *[phone] Demonstrator Sales Michelle Cain Confirmed Active Varicose vein Confirmed [...] Care Member Role: PCP Address: Address: [address] [place] [address]- Care Team Related Persons Name: SANDY BOYCE Address: home [address] [place] [address] Name: COLT BOYCE Address: home [address] [place] [address]
--- OUTSIDE RECORDS SUMMARY | 2024-07-06 12:07 | XMS_ITS | Continuity of Care Document ---
Author Organization [facility] [place] [facility] Address [address] [place] [address]- Care Team Providers Care Vulcanizing Press Operator Name Role Phone Marychuy MCCLAIN, Jessica Primary Care Physician [facility] Date(s): 03/13/24 - 04/12/24 [facility] [address]- Allergies, Adverse Reactions, Alerts Substance Reaction Severity [...] virus vaccine, inactivated 5 07/29/06 Gi javon [id number] 12y+ bivalent booster vax 03/24/23 Given [id number] 12y+ bivalent booster vax 07/28/22 Recorded SARS-CoV-2 mRNA (ygnywqs-klem-zebdd) vax 02/17/22 Given SARS-CoV-2 (COVID-19) mRNA BNT-162b2 [...] Refills, Maintenance, 01/19/24 8:32:00 EDT, ER Tablet, [facility] #[id number], Partial fill upon patient request if th... Start Date: 01/19/24 Status: Ordered Albuterol (Eqv-ProAir HFA) 90 mcg/inh inhalation aerosol 2 puffs, Inhalation, Every 6 hours, PRN Wheezing/Shortness of Breath, # 8.5 Gm, 5 Refills, Maintenance, 01/19/24 8:30:00 EDT, [facility] #[id number], If pump is not covered, it can [...] 01/19/24 8:40:00 EDT, Route to Pharmacy Electronically, [id number], [facility] #[id number], 165, cm, 01/19/24 7:55:00 EDT, Height, 85.... Start Date: 01/19/24 Status: Ordered calcium (as citrate)-vitamin D 315 mg-250 intl units oral tablet 2 tablet, By Mouth, 2 times a day, # 360 tablet, 3 Refills, Maintenance, 03/18/24 10:33:00 EDT, [facility] #[id number], 2 tablet By Mouth 2 times a day,x90 days, 165, cm, 01/19/24 7:55:00 EDT, Height, 85.45, kg, 12/23/23 9:04:00 EDT, Dry Weight Start Date: 03/18/24 Stop Date: 03/13/25 Status: Ordered ciclopirox 8% topical solution 1 application, Topically, Daily, as directed to affected area toenails, # 6.6 mL, 11 Refills, Maintenance, 01/19/24 9:20:00 EDT, Solution, [facility] #[id number], ., 1 application Topically Daily,Instr:as directed; to affected area toenails, 165... Start Date: 01/19/24 Status: Ordered Clarinex 5 mg oral tablet 1 tablet = 5 mg, By Mouth, Daily, # 90 tablet, 3 Refills, Maintenance, 03/18/24 10:23:00 EDT, Tablet, [facility] #[id number], 165, cm, 01/19/24 7:55:00 EDT, Height, 85.45, [...] 11 Refills, Maintenance, 01/19/24 8:42:00 EDT, Gel, [facility] #[id number], ., 165, cm, 01/19/24 7:55:00 EDT, Height, 85.45, kg, 12/23/23 9:04:00 EDT,Dry Weight Start Date: 01/19/24 Stop Date: 07/05/24 Status: Ordered Eliquis 5 mg oral tablet 1 tablet, By Mouth, 2 times a day, # 180 tablet, 3 Refills, Maintenance, 01/19/24 9:20:00 EDT, [facility] #[id number], 165, cm, 01/19/24 7:55:00 EDT, Height, 85.45, kg, 12/23/23 9:04:00 EDT, DryWeight Start Date: 01/19/24 Status: Ordered EPINEPHrine 0.3 mg injectable solution = 0.3 mg, Intramuscular, Once, PRN Anaphylactic Reaction, # 1 each, 0 Refills, Soft Stop, 10/22/21 10:11:00 EST, [facility] #[id number], 165, cm, 10/22/21 9:05:00 EST, Height, 89.5, kg, 04/23/2121:43:00 EDT, Dry Weight Start Date: 10/22/21 Status: Ordered escitalopram 10 mg oral tablet 1 tablet = 10 mg, By Mouth, Daily, discontinue citalopram, # 30 tablet, 11 Refills, Maintenance, 01/19/24 8:34:00 EDT, Tablet, [facility] #[id number], Partial fill upon patient request if the prescription is for a schedule II opioid drug., 165, c... Start Date: 01/19/24 Status: Ordered fluticasone 50 mcg/inh nasal spray 2 sprays, Nares, Both, Daily, Use every day during allergy season. While using spray keep head down., # 3 each, 3 Refills, Maintenance, 03/18/24 10:28:00 EDT, [facility] #[id number], ., 2 spraysNares, Both Daily,x90 days,Instr:Use every day duri... Start Date: 03/18/24 Stop Date: 03/13/25 Status: Ordered formoterol 10 mcg/mL inhalation solution See Instructions, USE 2 ML VIA NEBULIZER TWICE DAILY USING A CONTINUOUS FLOW VIA NEBULIZER, # 120 mL, 11 Refills, Maintenance, 01/19/24 8:40:00 EDT, [facility] #[id number], 165, cm, 01/19/24 7:55:00 EDT, Height, 85.45, [...] tablet, 3 Refills, Maintenance, 03/18/24 10:31:00 EDT, [facility] #[id number], 165, cm, 01/19/24 7:55:00 EDT, Height, 85.45, kg, 12/23/23 9:04:00 EDT, Dry Weight Start Date: 03/18/24 Stop Date: 03/13/25 Status: Ordered lisinopril 40 mg oral tablet 1 tablet = 40 mg, By Mouth, Daily in AM, 11 AM Decreased dose, # 90 tablet, 3 Refills, Maintenance,03/18/24 10:12:00 EDT, Tablet, [facility] #[id number], 165, cm, 01/19/24 7:55:00 EDT, Height, 85.45, kg, 12/23/23 9:04:00 EDT, Dry Weight Start Date: 03/18/24 Stop Date: 03/13/25 Status: Ordered Matzim LA 180 mg/24 hours oral tablet, extended release 1 tablet = 180 mg, By Mouth, Daily in AM, Take at 11 AM, # 90 tablet, 3 Refills, Maintenance, 03/18/24 9:58:00 EDT, ER Tablet, [facility] #[id number], 165, cm, 01/19/24 7:55:00 EDT, Height, 85.45, kg, 12/23/23 9:04:00 EDT, Dry Weight Start Date: 03/18/24 Stop Date: 03/13/25 Status: Ordered MetFORMIN (Eqv-Glucophage XR) 500 mg oral tablet, extended release 1 tablet, By Mouth, 2 times a day with meals, INCREASE DOSE, # 180 tablet, 3 Refills, Maintenance, 12/22/23 16:13:00 EDT, [facility] #[id number], 165, cm, 12/20/23 5:43:00 EDT, Height, 84.5, kg,12/19/23 17:15:00 EDT, Dry Weight Start Date: 12/22/23 Status: Ordered metoprolol 25 mg oral tablet, extended release 25 mg, 1, tablet, By Mouth, Daily, # 30 tablet, Refills 11, Tot. Refills 11, Maintenance, 01/19/24 8:40:00 EDT, Route to Pharmacy Electronically, [facility] #[id number], 165, cm, 01/19/24 7:55:00 EDT, Height, 85.45, kg, 12/23/23 9:04:00 EDT, Dry... Start Date: 01/19/24 Status: Ordered mirtazapine 15 mg oral tablet 0.5 tablet, By Mouth, Daily at bedtime, # 45 tablet, 3 Refills, Maintenance, 03/18/24 10:22:00 EDT,[facility] #[id number], 165, cm, 01/19/24 7:55:00 EDT, Height, 85.45, kg, 12/23/23 9:04:00 EDT, Dry Weight Start Date: 03/18/24 Stop Date: 03/13/25 Status: Ordered montelukast 10 mg oral tablet 1, tablet, By Mouth, Daily at bedtime, SUPPLY., # 90 tablet, Refills 3, Tot. Refills 3, Maintenance, 06/05/23 14:50:00 EDT, Route to Pharmacy Electronically, [facility] #[id number], 160, cm, 03/24/23 10:19:00 EDT, Height, 89.54, kg, 02/09/23 16:4... Start Date: 06/05/23 Status: Ordered Nucala Prefilled Autoinjector 100 mg/mL subcutaneous solution = 100 mg, Subcutaneous Infusion, Every 28 days, j45.40, # 1 each, 11 Refills, Maintenance, 01/12/2414:58:00 EDT, [facility], Partial fill upon patient request if the prescription isfor a schedule II opioid drug., 165, cm, 01/04/24 1... Start Date: 01/13/24 Status: Ordered Fed-qpn-topzm medical-grade oxford diabetic shoes, depth or hightop Vut-qcj-edvzu medical-grade oxford diabetic shoes, depth or hightop, [...] capsule, 3 Refills, Maintenance, 03/18/24 10:28:00 EDT, [facility] #[id number], 165, cm, 01/19/24 7:55:00 EDT, Height, 85.45, kg, 12/23/23 9:04:00 EDT, Dry Weight Start Date: 03/18/24 Stop Date: 03/13/25 Status: Ordered pravastatin 80 mg oral tablet 1 tablet, By Mouth, Daily, # 90 tablet, 3 Refills, Maintenance, 03/24/23 10:32:00 EDT, [facility] #[id number], 160, cm, 03/24/23 10:19:00 EDT, Height, 89.54, kg, 02/09/23 16:45:00 EDT, Dry Weight Start Date: 03/24/23 Stop Date: 03/18/24 Status: Ordered Premarin Vaginal 0.625 mg/gm cream with applicator See Instructions, APPLY 1/2 GRAM IN THE VAGINA EVERY WEDNESDAY AND WEDNESDAY, # 30 Gm, 11 Refills, Maintenance, 01/19/24 9:20:00 EDT, [facility] #[id number], 30, APPLY 1/2 GRAM IN THE VAGINA [...] in AM, at 11 AM Given by sprayer auto parts, Dr. Indio Mason, # 30 tablet, Refills [...] day, PRN itching Apply to lower extremities [place], # 30 Gm, 2Refills, Maintenance, 02/23/24 8:27:00 EDT, [facility] #[id number], 1 application Topically 3 times a day,Instr:PRN itching ; Apply to lower e... Start Date: 02/23/24 Status: Ordered Wixela Inhub 100 mcg-50 mcg inhalation powder 1 inhalation, Inhalation, 2 times a day, J45..0rinse mouth and throat after use, # 1 each, 5 Refills, Maintenance, 01/26/24 9:28:00 EDT, Powder, [facility] #[id number], Partial fill upon patientrequest if the prescription [...] 5, 6, 7, 8 Confirmed 08/09/06 Active *[phone] Advisory Software Engineer Michelle Cain Confirmed Active Varicose [...] Primary Care Member Role: PCP Address: Address: [address] [place] [address]- Care Team Related Persons Name: SANDY BOYCE Address: home [address] [place] [address] Name: BOYCECOLT Address: home [address] [place] [address]
--- OUTSIDE RECORDS SUMMARY | 2024-07-06 12:07 | XMS_ITS | Continuity of Care Document ---
Author Organization [facility] Address [address] [place] [address]- Care Team Providers Care Media Developer Name Role Phone Marychuy MCCLAIN, Jessica Primary Care Physician [facility]counter [facility] Date[facility]s): 04/01/23 - 05/01/23 [facility] [address] [place], [place] [address] Allergies, Adverse Reactions, Alerts Substance Reaction [...] and Recorded Vaccine Date Status Refusal Reason [id number] 12y+ bivalent booster vax 03/24/23 Given [id number] 12y+ bivalent booster vax 07/28/22 Recorded influenza [...] inactivated 5 07/29/06 Gi javon SARS-CoV-2 mRNA (rfuujbn-vlhw-lofdf) vax 02/17/22 Given SARS-CoV-2 (COVID-19) mRNA BNT-162b2 [...] tablet, 11 Refills, Maintenance, 03/24/23 10:28:00 EDT, [facility] #[id number], 160, cm, 03/24/23 10:19:00 EDT, Height, 89.54, kg, 0... Start Date: 03/24/23 Status: Ordered albuterol 0.083% inhalation solution 3 mL = 2.5 mg, Inhalation, Every 6 hours, # 25 each, 5 Refills, Maintenance, 08/12/22 15:02:00 EST,[email or web address] #[id number], 165, cm, 06/18/22 13:19:00 EDT, Height, 88.9, [...] 16:58:00 EST, Suspension, Route to Pharmacy Electronically, [id number], [facility] #[id number], 163, cm, 10/16/22 16:21:00 E... Start Date: 10/16/22 Status: Ordered calcium (as citrate)-vitamin D 315 mg-250 intl units oral tablet 2 tablet, By Mouth, 2 times a day, # 360 tablet, 3 Refills, Maintenance, 03/24/23 10:33:00 EDT, [email or web address] #[id number], 2 tablet By Mouth 2 times a day,x90 days, 160, cm, 03/24/23 10:19:00 EDT, Height, 89.54, kg, 02/09/23 16:45:00 EDT, Dry Weight Start Date: 03/24/23 Stop Date: 03/18/24 Status: Ordered ciclopirox 8% topical solution 1 application, Topically, Daily, as directed to affected area toenails, # 6.6 mL, 11 Refills, Maintenance, 03/24/23 10:42:00 EDT, Solution, [email or web address] #48971, ., 1 application Topically Daily,Instr:as directed; to affected area toenails, 16... Start Date: 03/24/23 Status: Ordered citalopram 20 mg oral tablet 20 mg, 1, tablet, By Mouth, Daily, # 90 tablet, Refills 3, Tot. Refills 3, Maintenance, 03/24/23 10:23:00 EDT, Route to Pharmacy Electronically, [facility] #[id number], is awared of interaction w nicky, 160, cm, 03/24/23 10:19:00 EDT, He... Start Date: 03/24/23 Status: Ordered Clarinex 5 mg oral tablet 1 tablet = 5 mg, By Mouth, Daily, # 90 tablet, 3 Refills, Maintenance, 03/24/23 10:23:00 EDT, Tablet, [facility] #57055, 160, cm, 03/24/23 10:19:00 EDT, Height, 89.54, [...] tablet, 3 Refills, Maintenance, 03/24/23 10:04:00 EDT, [email or web address] #96754, 160, cm, 03/24/23 9:26:00 EDT, Height, 89.54, kg, 02/09/23 16:45:00 EDT, Dry Weight Start Date: 03/24/23 Status: Ordered EPINEPHrine 0.3 mg injectable solution = 0.3 mg, Intramuscular, Once, PRN Anaphylactic Reaction, # 1 each, 0 Refills, Soft Stop, 10/22/21 10:11:00 EST, [email or web address] #[id number], 165, cm, 10/22/21 9:05:00 EST, Height, 89.5, kg, 04/23/2121:43:00 EDT, Dry Weight Start Date: 10/22/21 Status: Ordered fluticasone 50 mcg/inh nasal spray 2 sprays, Nares, Both, Daily, Use every day during allergy season. While using spray keep head down., # 3 each, 3 Refills, Maintenance, 03/24/23 10:28:00 EDT, [email or web address] #[id number], ., 2 spraysNares, Both Daily,x90 days,Instr:Use every day duri... Start Date: 03/24/23 Stop Date: 03/18/24 Status: Ordered formoterol 10 mcg/mL inhalation solution 2 mL = 20 mcg, Inhalation, 2 times a day, using a continuous flow nebulizer, # 120 mL, 11 Refills, Maintenance, 10/16/22 16:58:00 EST, Solution, [email or web address] #[id number], Partial fill upon patientrequest if the prescription [...] Replace Required Details, Route to Pharmacy Electronically, [facility]... Start Date: 03/24/23 Status: Ordered Lancets See [...] tablet, 3 Refills, Maintenance, 03/24/23 10:31:00 EDT, [email or web address] #[id number], 160, cm, 03/24/23 10:19:00 EDT, Height, 89.54, kg, 02/09/23 16:45:00 EDT, Dry Weight Start Date: 03/24/23 Stop Date: 03/18/24 Status: Ordered lisinopril 40 mg oral tablet 1 tablet = 40 mg, By Mouth, Daily in AM, 11 AM Decreased dose, # 90 tablet, 3 Refills, Maintenance,03/24/23 10:12:00 EDT, Tablet, [facility] #[id number], 160, cm, 03/24/23 9:26:00 EDT, Height, 89.54, kg, 02/09/23 16:45:00 EDT, Dry Weight Start Date: 03/24/23 Stop Date: 03/18/24 Status: Ordered Matzim LA 180 mg/24 hours oral tablet, extended release 1 tablet = 180 mg, By Mouth, Daily in AM, Discontinue diltiazem 360 mg Takes at 11 AM, # 90 tablet,3 Refills, Maintenance, 03/24/23 9:58:00 EDT, ER Tablet, [facility] #39215, 160, cm, 03/24/23 9:26:00 EDT, Height, 89.54, kg, 02/09/23 16:45... Start Date: 03/24/23 Stop Date: 03/18/24 Status: Ordered metFORMIN 500 mg oral tablet, extended release 1 tablet = 500 mg, By Mouth, 2 times a day, with meal Increase dose, # 180 tablet, 3 Refills, Maintenance, 03/24/23 10:19:00 EDT, ER Tablet, [email or web address] #08704, 160, cm, 03/24/23 10:19:00 EDT, Height, 89.54, kg, 02/09/23 16:45:00 EDT, Dry W... Start Date: 03/24/23 Stop Date: 03/18/24 Status: Ordered mirtazapine 15 mg oral tablet 0.5 tablet, By Mouth, Daily at bedtime, # 45 tablet, 3 Refills, Maintenance, 03/24/23 10:22:00 EDT,[email or web address] #03042, 160, cm, 03/24/23 10:19:00 EDT, Height, 89.54, kg, 02/09/23 16:45:00 EDT, Dry Weight Start Date: 03/24/23 Stop Date: 03/18/24 Status: Ordered montelukast 10 mg oral tablet 1, tablet, By Mouth, Daily at bedtime, SUPPLY., # 90 tablet, Refills 3, Tot. Refills 3, Maintenance, 06/05/23 14:50:00 EDT, Route to Pharmacy Electronically, [email or web address] #47821, 160, cm, 03/24/23 10:19:00 EDT, Height, 89.54, kg, 02/09/23 16:4... Start Date: 06/05/23 Status: Ordered Pmi-gxe-duhal medical-grade oxford diabetic shoes, depth or hightop Kdb-ish-nswtz medical-grade oxford diabetic shoes, depth or hightop, [...] capsule, 3 Refills, Maintenance, 03/24/23 10:28:00 EDT, [email or web address] #81218, 160, cm, 03/24/23 10:19:00 EDT, Height, 89.54, kg, 0... Start Date: 03/24/23 Stop Date: 03/18/24 Status: Ordered pravastatin 80 mg oral tablet 1 tablet, By Mouth, Daily, # 90 tablet, 3 Refills, Maintenance, 03/24/23 10:32:00 EDT, [email or web address] #09777, 160, cm, 03/24/23 10:19:00 EDT, Height, 89.54, kg, 02/09/23 16:45:00 EDT, Dry Weight Start Date: 03/24/23 Stop Date: 03/18/24 Status: Ordered Premarin Vaginal 0.625 mg/gm cream with applicator See Instructions, APPLY 1/2 GRAM IN THE VAGINA EVERY WEDNESDAY AND WEDNESDAY, # 30 Gm, 11 Refills, Maintenance, 03/24/23 10:23:00 EDT, [email or web address] #64043, 30, APPLY 1/2 GRAM IN THE VAGINA EVERY WEDNESDAY AND WEDNESDAY, 160, cm, 03/24/23 10:19:00 EDT,... Start Date: 03/24/23 Status: Ordered ProAir HFA 90 mcg/inh inhalation aerosol with adapter 2, puffs, Inhalation, 4 times a day, PRN, Fill when patient request it, # 1 each, Refills 5, Tot. Refills 5, Maintenance, 03/24/23 10:30:00 EDT, Route to Pharmacy Electronically, [id number], [facility] #[id number], 160,... Start Date: 03/24/23 Status: Ordered Shoes [...] in AM, at 11 AM Given by educational administration teacher, Dr. Indio Mason, # 30 tablet, Refills [...] day, PRN itching Apply to lower extremities Guinean, # 30 Gm, 2Refills, Maintenance, 03/24/23 10:34:00 EDT, [facility] #02733, 1 application Topically 3times a day,Instr:PRN itching [...] 4, 5, 6, 7 Confirmed 08/09/06 Active [id number] Wildlife Refuge Specialist Yee Ceballos Confirmed Active Varicose vein Confirmed [...] Team Personnel Name: Haley Gonzalez RN Position: [facility] RN Member Role: Primary Care Nurse Name: Marychuy MCCLAIN, Jessica Position: [facility] Physician - Primary Care Member Role: PCP Address: Address: [address] [place] [address]- Care Team Related Persons Name: SANDY BOYCE Address: home [address] [place] [address] Name: COLT BOYCE Address: [address] [place] [address]
--- OUTSIDE RECORDS SUMMARY | 2024-07-06 12:07 | XMS_ITS | Continuity of Care Document ---
Author Organization [facility] Address [address] [place] [address]- Care Team Providers Care Duck Farmer Name Role Phone Marychuy MCCLAIN, Jessica Primary Care Physician [facility] Date(s): 12/07/22 - 01/06/23 [facility] [address]- [place] Allergies, Adverse Reactions, Alerts Substance Reaction [...] Vaccine Date Status Refusal Reason SARS-CoV-2 mRNA (zkfmgqi-ubgy-dojli) vax 02/17/22 Given influenza virus vaccine, inactivated [...] tablet, 11 Refills, Maintenance, 05/13/22 11:27:00 EDT, [facility] #[id number], Partial fill upon cherelle... Start Date: 05/13/22 Status: Ordered albuterol 0.083% inhalation solution 3 mL = 2.5 mg, Inhalation, Every 6 hours, # 25 each, 5 Refills, Maintenance, 08/12/22 15:02:00 EST,[facility] #81409, 165, cm, 06/18/22 13:19:00 EDT, Height, 88.9, kg, 02/09/22 15:14:00 EDT, Dry Weight Start Date: 08/12/22 Stop Date: 02/08/23 Status: Ordered apixaban 5 mg oral tablet 1 tablet = 5 mg, By Mouth, 2 times a day, # 180 tablet, 0 Refills, Maintenance, 12/16/22 16:34:00 EDT, Tablet, [facility] #[id number], Partial fill upon patient request if the prescription is for a schedule II opioid drug., 163, cm, 12/16/22 7:58... Start Date: 12/16/22 Stop Date: 03/16/23 Status: Ordered budesonide 0.5 mg/2 mL inhalation suspension 0.5 mg, 2, mL, Neb, 2 times a day, # 120 mL, Refills 11, Tot. Refills 11, Maintenance, 10/16/22 16:58:00 EST, Suspension, Route to Pharmacy Electronically, [id number], [facility] #14204, 163, cm, 10/16/22 16:21:00 E... Start Date: 10/16/22 Status: Ordered budesonide 0.5 mg/2 mL inhalation suspension 0.5 mg, 2, mL, Neb, 2 times a day, # 120 mL, Refills 11, Tot. Refills 11, Maintenance, 08/13/22 15:24:00 EST, Suspension, Route to Pharmacy Electronically, [id number], [facility] #[id number], 165, cm, 06/18/22 13:19:00 E... Start Date: 08/13/22 Status: Ordered calcium (as citrate)-vitamin D 315 mg-250 intl units oral tablet 2 tablet, By Mouth, 2 times a day, # 360 tablet, 0 Refills, Maintenance, 12/07/22 14:46:00 EDT, [facility] #79205, 90, 2 tablet By Mouth 2 times a day, 163, cm, 11/05/22 16:59:00 EST, Height, 90, kg, 11/05/22 16:59:00 EST, Dry Weight Start Date: 12/07/22 Status: Ordered citalopram 20 mg oral tablet 20 mg, 1, tablet, By Mouth, Daily, # 90 tablet, Refills 3, Tot. Refills 3, Maintenance, 07/08/22 14:31:00 EDT, Route to Pharmacy Electronically, [facility] #49063, is awared of interaction w nicky, 165, cm, 06/18/22 13:19:00 EDT, He... Start Date: 07/08/22 Status: Ordered Clarinex 5 mg oral tablet 1 tablet = 5 mg, By Mouth, Daily, # 90 tablet, 3 Refills, Maintenance, 04/29/22 12:53:00 EDT, Tablet, [facility] #50865, 165, cm, 02/23/22 14:24:00 EDT, Height, 88.9, [...] 0 Refills, Soft Stop, 10/22/21 10:11:00 EST, [facility] #[id number], 165, cm, 10/22/21 9:05:00 EST, Height, 89.5, kg, 04/23/2121:43:00 EDT, Dry Weight Start Date: 10/22/21 Status: Ordered fluticasone 50 mcg/inh nasal spray See Instructions, SPRAY 2 TIMES IN EACH NOSTRILS EVERY DAY. NEEDED FOR ALLERGY SEASON. WHEN SPRAYING KEEP HEAD DOWN, # 16 Gm, 11 Refills, 02/17/22 13:14:00 EDT, [facility] #[id number], 30, SPRAY 2 TIMES IN EACH NOSTRILS EVERY DAY. NEEDED FO... Start Date: 02/17/22 Status: Ordered formoterol 10 mcg/mL inhalation solution 2 mL = 20 mcg, Inhalation, 2 times a day, using a continuous flow nebulizer, # 120 mL, 11 Refills, Maintenance, 10/16/22 16:58:00 EST, Solution, [facility] #[id number], Partial fill upon patientrequest if the prescription [...] 11/05/22 17:53:00 EST, Route to Pharmacy Electronically, [facility] #[id number], Partial fill upon patient request if the prescription is for a schedule II opi... Start Date: 11/05/22 Stop Date: 11/10/22 Status: Ordered gabapentin 300 mg oral capsule 300 mg, 1, capsule, By Mouth, 2 times a day, PRN, # 20 capsule, Refills 0, Tot. Refills 0, Maintenance, Pain , Severe, 11/05/22 17:53:00 EST, Route to Pharmacy Electronically, [facility] #[id number], Partial fill upon patient request if the presc... Start Date: 11/05/22 Stop Date: 11/15/22 Status: Ordered hydrALAZINE 25 mg oral tablet 25 mg, 1, tablet, By Mouth, 3 times a day, discontinue hydralazine 10mg, # 90 tablet, Refills 11, Tot. Refills 11, Maintenance, 06/18/22 13:56:00 EDT, Route to Pharmacy Electronically, [facility] #[id number], Partial fill upon patient request if... Start [...] 01/16/23 14:39:00 EDT, 12/28/22 14:38:00 EDT, Cream, [facility] #36906, Partial fill upon patient request if the prescription is for a schedule II opioid drug., 1 application... Start Date: 12/28/22 Stop Date: 01/16/23 Status: Ordered levothyroxine 0.05 mg oral tablet 1 tablet, By Mouth, Daily, # 30 tablet, 11 Refills, Maintenance, 09/30/22 12:56:00 EST, [facility] #[id number], 163, cm, 09/30/22 11:48:00 EST, Height, 92.8, kg, 09/24/22 22:19:00 EST, Dry Weight Start Date: 09/30/22 Status: Ordered lisinopril 40 mg oral tablet 1 tablet = 40 mg, By Mouth, 2 times a day, increase dose discontinue HCTZ 12.5mg, # 60 tablet, 11 Refills, Maintenance, 09/30/22 12:54:00 EST, Tablet, [facility] #36896, 163, cm, 09/30/22 11:48:00 EST, Height, 92.8, kg, 09/24/22 22:19:00... Start Date: 09/30/22 Stop Date: 09/25/23 Status: Ordered Matzim LA 360 mg/24 hours oral tablet, extended release 1 tablet, By Mouth, Daily, # 90 tablet, 3 Refills, 02/17/22 13:08:00 EDT, [facility] #04510, 165, cm, 02/17/22 12:49:00 EDT, Height, 88.9, kg, 02/09/22 15:14:00 EDT, Dry Weight Start Date: 02/17/22 Status: Ordered metFORMIN 500 mg oral tablet, extended release 1 tablet = 500 mg, By Mouth, Daily in AM, discontinue metformin 500mg with meal, # 30 tablet, 11 Refills, Maintenance, 09/30/22 12:51:00 EST, ER Tablet, [facility] #[id number], 163, cm, 09/30/2310:48:00 EST, Height, 92.8, kg, 09/24/22 22:1... Start Date: 09/30/22 Status: Ordered mirtazapine 15 mg oral tablet 0.5 tablet, By Mouth, Daily at bedtime, DECREASED DOSE, # 45 tablet, 1 Refills, Maintenance, 10/20/22 20:06:00 EST, [facility] #15626, 163, cm, 10/16/22 16:21:00 EST, Height, 92.8, kg, 09/24/22 22:19:00 EST, Dry Weight Start Date: 10/20/22 Status: Ordered montelukast 10 mg oral tablet 1, tablet, By Mouth, Daily at bedtime, SUPPLY., # 90 tablet, Refills 1, Tot. Refills 1, Maintenance, 12/07/22 14:50:00 EDT, Route to Pharmacy Electronically, [facility] #[id number], 163, cm, 11/05/22 16:59:00 EST, Height, 90, kg, 11/05/22 16:59:0... Start Date: 12/07/22 Stop Date: 06/05/23 Status: Ordered Nyj-ybg-nxxdl medical-grade oxford diabetic shoes, depth or hightop Caa-aek-qkvvx medical-grade oxford diabetic shoes, depth or hightop, [...] Refills, Maintenance, 12/07/22 14:49:00 EDT, EC Capsule, [facility] #[id number], 163, cm, 11/05/22 16:59:00 EST,... Start Date: 12/07/22 Status: Ordered pravastatin 80 mg oral tablet 1 tablet, By Mouth, Daily, # 90 tablet, 1 Refills, Maintenance, 12/07/22 14:47:00 EDT, [facility] #72123, 163, cm, 11/05/22 16:59:00 EST, Height, 90, kg, 11/05/22 16:59:00 EST, Dry Weight Start Date: 12/07/22 Status: Ordered Premarin Vaginal 0.625 mg/gm cream with applicator See Instructions, APPLY 1/2 GRAM IN THE VAGINA EVERY WEDNESDAY AND WEDNESDAY, # 30 Gm, 11 Refills, Maintenance, 05/11/22 14:58:00 EDT, [facility] #28366, 30, APPLY 1/2 GRAM IN THE VAGINA EVERY WEDNESDAY AND WEDNESDAY, 165, cm, 02/23/22 14:24:00 EDT,... Start Date: 05/11/22 Status: Ordered ProAir HFA 90 mcg/inh inhalation aerosol with adapter 2, puffs, Inhalation, 4 times a day, PRN, # 1 each, Refills 11, Tot. Refills 11, Maintenance, 10/16/22 17:00:00 EST, Route to Pharmacy Electronically, [id number], [facility] #[id number], 163, cm, 10/16/22 16:21:00 EST, H... Start [...] 4, 5, 6, 7 Confirmed 08/09/06 Active [id number] Product Manager Yee Ceballos Confirmed Active Varicose vein [...] Team Personnel Name: Haley Gonzalez RN Position: [facility] RN Member Role: Primary Care Nurse Name: Jessica Perrin MD Position: [facility] Primary Care Physician Member Role: PCP Address: Address: [address] [place] [address]- Care Team Related Persons Name: SANDY BOYCE Address: home [address] [place] [address] Name: COLT BOYCE Address: [place] [address] [place] [address]
--- OUTSIDE RECORDS SUMMARY | 2024-07-06 12:07 | XMS_ITS | Continuity of Care Document ---
Author Organization [facility] ter Address [address] [place] [address]- Care Team Providers Care Clinical Trials Nurse Name Role Phone Marychuy MCCLAIN, Jessica Primary Care Physician [facility] Date[facility]): 09/[facility]/22 - 10/25/[address] [address] Allergies, Adverse Reactions, Alerts Substance Reaction [...] Vaccine Date Status Refusal Reason SARS-CoV-2 mRNA (ccximzd-yruu-mfrio) vax 02/17/22 Given influenza virus vaccine, inactivated [...] tablet, 11 Refills, Maintenance, 05/13/22 11:27:00 EDT, [facility] #[id number], Partial fill upon cherelle... Start Date: 05/13/22 Status: Ordered albuterol 0.083% inhalation solution 3 mL = 2.5 mg, Inhalation, Every 6 hours, # 25 each, 5 Refills, Maintenance, 08/12/22 15:02:00 EST,[facility] #21346, 165, cm, 06/18/22 13:19:00 EDT, Height, 88.9, kg, 02/09/22 15:14:00 EDT, Dry Weight Start Date: 11/30/22 Stop Date: 02/08/23 Status: Ordered budesonide 0.5 mg/2 mL inhalation suspension 0.5 mg, 2, mL, Neb, 2 times a day, # 120 mL, Refills 11, Tot. Refills 11, Maintenance, 10/16/22 16:58:00 EST, Suspension, Route to Pharmacy Electronically, [id number], [facility] #[id number], 163, cm, 10/16/22 16:21:00 E... Start Date: 10/16/22 Status: Ordered budesonide 0.5 mg/2 mL inhalation suspension 0.5 mg, 2, mL, Neb, 2 times a day, # 120 mL, Refills 11, Tot. Refills 11, Maintenance, 08/13/22 15:24:00 EST, Suspension, Route to Pharmacy Electronically, [id number], [facility] #[id number], 165, cm, 06/18/22 13:19:00 E... Start Date: 08/13/22 Status: Ordered calcium (as citrate)-vitamin D 315 mg-250 intl units oral tablet 2 tablet, By Mouth, 2 times a day, # 360 tablet, 0 Refills, Maintenance, 09/11/22 8:59:00 EST, [facility] #[id number], 90, TAKE 2 TABLETS BY MOUTH TWICE DAILY, 165, cm, 06/18/22 13:19:00 EDT, Height, 88.9, kg, 02/09/22 15:14:00 EDT, Dry Weight Start Date: 09/11/22 Status: Ordered citalopram 20 mg oral tablet 20 mg, 1, tablet, By Mouth, Daily, # 90 tablet, Refills 3, Tot. Refills 3, Maintenance, 07/08/22 14:31:00 EDT, Route to Pharmacy Electronically, [facility] #65524, is awared of interaction w [email or web address], 165, cm, 06/18/22 13:19:00 EDT, He... Start Date: 07/08/22 Status: Ordered Clarinex 5 mg oral tablet 1 tablet = 5 mg, By Mouth, Daily, # 90 tablet, 3 Refills, Maintenance, 04/29/22 12:53:00 EDT, Tablet, [facility] #84798, 165, cm, 02/23/22 14:24:00 EDT, Height, 88.9, [...] 0 Refills, Soft Stop, 10/22/21 10:11:00 EST, [facility] #35877, 165, cm, 10/22/21 9:05:00 EST, Height, 89.5, kg, 04/23/2121:43:00 EDT, Dry Weight Start Date: 10/22/21 Status: Ordered fluticasone 50 mcg/inh nasal spray See Instructions, SPRAY 2 TIMES IN EACH NOSTRILS EVERY DAY. NEEDED FOR ALLERGY SEASON. WHEN SPRAYING KEEP HEAD DOWN, # 16 Gm, 11 Refills, 02/17/22 13:14:00 EDT, [facility] #74114, 30, SPRAY 2 TIMES IN EACH NOSTRILS EVERY DAY. NEEDED FO... Start Date: 02/17/22 Status: Ordered formoterol 10 mcg/mL inhalation solution 2 mL = 20 mcg, Inhalation, 2 times a day, using a continuous flow nebulizer, # 120 mL, 11 Refills, Maintenance, 10/16/22 16:58:00 EST, Solution, [facility] #40945, Partial fill upon patientrequest if the prescription [...] 06/18/22 13:56:00 EDT, Route to Pharmacy Electronically, [facility] #[id number], Partial fill upon patient request if... Start [...] tablet, 11 Refills, Maintenance, 09/30/22 12:56:00 EST, [facility] #37931, 163, cm, 09/30/22 11:48:00 EST, Height, 92.8, kg, 09/24/22 22:19:00 EST, Dry Weight Start Date: 09/30/22 Status: Ordered lisinopril 40 mg oral tablet 1 tablet = 40 mg, By Mouth, 2 times a day, increase dose discontinue HCTZ 12.5mg, # 60 tablet, 11 Refills, Maintenance, 09/30/22 12:54:00 EST, Tablet, [facility] #73563, 163, cm, 09/30/22 11:48:00 EST, Height, 92.8, kg, 09/24/22 22:19:00... Start Date: 09/30/22 Stop Date: 09/25/23 Status: Ordered Matzim LA 360 mg/24 hours oral tablet, extended release 1 tablet, By Mouth, Daily, # 90 tablet, 3 Refills, 02/17/22 13:08:00 EDT, [facility] #[id number], 165, cm, 02/17/22 12:49:00 EDT, Height, 88.9, kg, 02/09/22 15:14:00 EDT, Dry Weight Start Date: 02/17/22 Status: Ordered metFORMIN 500 mg oral tablet, extended release 1 tablet = 500 mg, By Mouth, Daily in AM, discontinue metformin 500mg with meal, # 30 tablet, 11 Refills, Maintenance, 09/30/22 12:51:00 EST, ER Tablet, [facility] #62914, 163, cm, 09/30/2310:48:00 EST, Height, 92.8, kg, 09/24/22 22:1... Start Date: 09/30/22 Status: Ordered mirtazapine 15 mg oral tablet 0.5 tablet, By Mouth, Daily at bedtime, DECREASED DOSE, # 45 tablet, 1 Refills, Maintenance, 10/20/22 20:06:00 EST, [facility] #[id number], 163, cm, 10/16/22 16:21:00 EST, Height, 92.8, kg, 09/24/22 22:19:00 EST, Dry Weight Start Date: 10/20/22 Status: Ordered montelukast 10 mg oral tablet 1, tablet, By Mouth, Daily at bedtime, SUPPLY., # 90 tablet, Refills 1, Maintenance, 06/18/22 14:04:00 EDT, Route to Pharmacy Electronically, [facility] #[id number], 165, cm, 06/18/22 13:19:00 EDT, Height, 88.9, kg, 02/09/22 15:14:00 EDT, Dry Weight Start Date: 06/18/22 Stop Date: 09/16/22 Status: Ordered Osh-lah-nrkzz medical-grade oxford diabetic shoes, depth or hightop Xhn-maq-eyyhn medical-grade oxford diabetic shoes, depth or hightop, [...] Refills, Maintenance, 12/18/21 15:48:00 EDT, EC Capsule, [facility], [facility] #57643, 165, cm, 10/29/21 12:16:00 EST,... Start Date: 12/18/21 Status: Ordered pravastatin 80 mg oral tablet 1 tablet, By Mouth, Daily, # 90 tablet, 1 Refills, Maintenance, 06/27/22 12:04:00 EDT, [facility] #66378, 165, cm, 06/18/22 13:19:00 EDT, Height, 88.9, kg, 02/09/22 15:14:00 EDT, Dry Weight Start Date: 06/27/22 Status: Ordered Premarin Vaginal 0.625 mg/gm cream with applicator See Instructions, APPLY 1/2 GRAM IN THE VAGINA EVERY WEDNESDAY AND WEDNESDAY, # 30 Gm, 11 Refills, Maintenance, 05/11/22 14:58:00 EDT, [facility] #39074, 30, APPLY 1/2 GRAM IN THE VAGINA EVERY WEDNESDAY AND WEDNESDAY, 165, cm, 02/23/22 14:24:00 EDT,... Start Date: 05/11/22 Status: Ordered ProAir HFA 90 mcg/inh inhalation aerosol with adapter 2, puffs, Inhalation, 4 times a day, PRN, # 1 each, Refills 11, Tot. Refills 11, Maintenance, 10/16/22 17:00:00 EST, Route to Pharmacy Electronically, [id number], [facility][id number], 163, cm, 10/16/22 16:21:00 EST, H... Start [...] 4, 5, 6, 7 Confirmed 08/09/06 Active *[id number] [employer] Francis Caity Confirmed Active Varicose vein [...] Team Personnel Name: Haley Gonzalez RN Position: [facility] RN Member Role: Primary Care Nurse Name: Jessica Perrin MD Position: [facility] Primary Care Physician Member Role: PCP Address: Address: [address] [place] [address]- Care Team Related Persons Name: SANDY BOCYE Address: home [address] [place] [address] Name: COLT BOYCE Address[address] [place] [address]
--- OUTSIDE RECORDS SUMMARY | 2024-07-06 12:07 | XMS_ITS | Continuity of Care Document ---
Author Organization [facility] Address [address] [place] [address]- Care Team Providers Care Cooker Sulfite Name Role Phone Marychuy MCCLAIN, Jessica Primary Care Physician Encounter [facility] Date(s): 12/15/22 - 01/14/23 [facility]/[place] [address]- [place] Allergies, Adverse Reactions, Alerts Substance Reaction [...] Vaccine Date Status Refusal Reason SARS-CoV-2 mRNA ([id number]) vax 02/17/22 Given influenza virus vaccine, inactivated [...] tablet, 11 Refills, Maintenance, 05/13/22 11:27:00 EDT, [facility] #[id number], Partial fill upon cherelle... Start Date: 05/13/22 Status: Ordered albuterol 0.083% inhalation solution 3 mL = 2.5 mg, Inhalation, Every 6 hours, # 25 each, 5 Refills, Maintenance, 08/12/22 15:02:00 EST,[facility] #[id number], 165, cm, 06/18/22 13:19:00 EDT, Height, 88.9, kg, 02/09/22 15:14:00 EDT, Dry Weight Start Date: 08/12/22 Stop Date: 02/08/23 Status: Ordered apixaban 5 mg oral tablet 1 tablet = 5 mg, By Mouth, 2 times a day, # 180 tablet, 0 Refills, Maintenance, 12/16/22 16:34:00 EDT, Tablet, [facility] #[id number], Partial fill upon patient request if the prescription is for a schedule II opioid drug., 163, cm, 12/16/22 7:58... Start Date: 12/16/22 Stop Date: 03/16/23 Status: Ordered budesonide 0.5 mg/2 mL inhalation suspension 0.5 mg, 2, mL, Neb, 2 times a day, # 120 mL, Refills 11, Tot. Refills 11, Maintenance, 10/16/22 16:58:00 EST, Suspension, Route to Pharmacy Electronically, [id number], [facility] #[id number], 163, cm, 10/16/22 16:21:00 E... Start Date: 10/16/22 Status: Ordered budesonide 0.5 mg/2 mL inhalation suspension 0.5 mg, 2, mL, Neb, 2 times a day, # 120 mL, Refills 11, Tot. Refills 11, Maintenance, 08/13/22 15:24:00 EST, Suspension, Route to Pharmacy Electronically, [id number], [facility] #[id number], 165, cm, 06/18/22 13:19:00 E... Start Date: 08/13/22 Status: Ordered calcium (as citrate)-vitamin D 315 mg-250 intl units oral tablet 2 tablet, By Mouth, 2 times a day, # 360 tablet, 0 Refills, Maintenance, 12/07/22 14:46:00 EDT, [facility] #[id number], 90, 2 tablet By Mouth 2 times a day, 163, cm, 11/05/22 16:59:00 EST, Height, 90, kg, 11/05/22 16:59:00 EST, Dry Weight Start Date: 12/07/22 Status: Ordered citalopram 20 mg oral tablet 20 mg, 1, tablet, By Mouth, Daily, # 90 tablet, Refills 3, Tot. Refills 3, Maintenance, 07/08/22 14:31:00 EDT, Route to Pharmacy Electronically, [facility] #[id number], is awared of interaction w nicky, 165, cm, 06/18/22 13:19:00 EDT, He... Start Date: 07/08/22 Status: Ordered Clarinex 5 mg oral tablet 1 tablet = 5 mg, By Mouth, Daily, # 90 tablet, 3 Refills, Maintenance, 04/29/22 12:53:00 EDT, Tablet, [facility] #[id number], 165, cm, 02/23/22 14:24:00 EDT, Height, 88.9, [...] 0 Refills, Soft Stop, 10/22/21 10:11:00 EST, [facility] #[id number], 165, cm, 10/22/21 9:05:00 EST, Height, 89.5, kg, 04/23/2121:43:00 EDT, Dry Weight Start Date: 10/22/21 Status: Ordered fluticasone 50 mcg/inh nasal spray See Instructions, SPRAY 2 TIMES IN EACH NOSTRILS EVERY DAY. NEEDED FOR ALLERGY SEASON. WHEN SPRAYING KEEP HEAD DOWN, # 16 Gm, 11 Refills, 02/17/22 13:14:00 EDT, [facility] #[id number], 30, SPRAY 2 TIMES IN EACH NOSTRILS EVERY DAY. NEEDED FO... Start Date: 02/17/22 Status: Ordered formoterol 10 mcg/mL inhalation solution 2 mL = 20 mcg, Inhalation, 2 times a day, using a continuous flow nebulizer, # 120 mL, 11 Refills, Maintenance, 10/16/22 16:58:00 EST, Solution, [facility] #[id number], Partial fill upon patientrequest if the prescription [...] 11/05/22 17:53:00 EST, Route to Pharmacy Electronically, [facility] #[id number], Partial fill upon patient request if the prescription is for a schedule II opi... Start Date: 11/05/22 Stop Date: 11/10/22 Status: Ordered gabapentin 300 mg oral capsule 300 mg, 1, capsule, By Mouth, 2 times a day, PRN, # 20 capsule, Refills 0, Tot. Refills 0, Maintenance, Pain , Severe, 11/05/22 17:53:00 EST, Route to Pharmacy Electronically, [facility] #[id number], Partial fill upon patient request if the presc... Start Date: 11/05/22 Stop Date: 11/15/22 Status: Ordered hydrALAZINE 25 mg oral tablet 25 mg, 1, tablet, By Mouth, 3 times a day, discontinue hydralazine 10mg, # 90 tablet, Refills 11, Tot. Refills 11, Maintenance, 06/18/22 13:56:00 EDT, Route to Pharmacy Electronically, [facility] #[id number], Partial fill upon patient request if... Start [...] tablet, 11 Refills, Maintenance, 09/30/22 12:56:00 EST, [facility] #[id number], 163, cm, 09/30/22 11:48:00 EST, Height, 92.8, kg, 09/24/22 22:19:00 EST, Dry Weight Start Date: 09/30/22 Status: Ordered lisinopril 40 mg oral tablet 1 tablet = 40 mg, By Mouth, 2 times a day, increase dose discontinue HCTZ 12.5mg, # 60 tablet, 11 Refills, Maintenance, 09/30/22 12:54:00 EST, Tablet, [facility] #[id number], 163, cm, 09/30/22 11:48:00 EST, Height, 92.8, kg, 09/24/22 22:19:00... Start Date: 09/30/22 Stop Date: 09/25/23 Status: Ordered Matzim LA 360 mg/24 hours oral tablet, extended release 1 tablet, By Mouth, Daily, # 90 tablet, 3 Refills, 02/17/22 13:08:00 EDT, [facility] #[id number], 165, cm, 02/17/22 12:49:00 EDT, Height, 88.9, kg, 02/09/22 15:14:00 EDT, Dry Weight Start Date: 02/17/22 Status: Ordered metFORMIN 500 mg oral tablet, extended release 1 tablet = 500 mg, By Mouth, Daily in AM, discontinue metformin 500mg with meal, # 30 tablet, 11 Refills, Maintenance, 09/30/22 12:51:00 EST, ER Tablet, [facility] #[id number], 163, cm, 09/30/2310:48:00 EST, Height, 92.8, kg, 09/24/22 22:1... Start Date: 09/30/22 Status: Ordered mirtazapine 15 mg oral tablet 0.5 tablet, By Mouth, Daily at bedtime, DECREASED DOSE, # 45 tablet, 1 Refills, Maintenance, 10/20/22 20:06:00 EST, [facility] #[id number], 163, cm, 10/16/22 16:21:00 EST, Height, 92.8, kg, 09/24/22 22:19:00 EST, Dry Weight Start Date: 10/20/22 Status: Ordered montelukast 10 mg oral tablet 1, tablet, By Mouth, Daily at bedtime, SUPPLY., # 90 tablet, Refills 1, Tot. Refills 1, Maintenance, 12/07/22 14:50:00 EDT, Route to Pharmacy Electronically, [facility] #[id number], 163, cm, 11/05/22 16:59:00 EST, Height, 90, kg, 11/05/22 16:59:0... Start Date: 12/07/22 Stop Date: 06/05/23 Status: Ordered Akr-est-gbmhk medical-grade oxford diabetic shoes, depth or hightop Krl-vck-pdhho medical-grade oxford diabetic shoes, depth or hightop, [...] Refills, Maintenance, 12/07/22 14:49:00 EDT, EC Capsule, [facility] #[id number], 163, cm, 11/05/22 16:59:00 EST,... Start Date: 12/07/22 Status: Ordered pravastatin 80 mg oral tablet 1 tablet, By Mouth, Daily, # 90 tablet, 1 Refills, Maintenance, 12/07/22 14:47:00 EDT, [facility] #[id number], 163, cm, 11/05/22 16:59:00 EST, Height, 90, kg, 11/05/22 16:59:00 EST, Dry Weight Start Date: 12/07/22 Status: Ordered Premarin Vaginal 0.625 mg/gm cream with applicator See Instructions, APPLY 1/2 GRAM IN THE VAGINA EVERY WEDNESDAY AND WEDNESDAY, # 30 Gm, 11 Refills, Maintenance, 05/11/22 14:58:00 EDT, [facility] #[id number], 30, APPLY 1/2 GRAM IN THE VAGINA EVERY WEDNESDAY AND WEDNESDAY, 165, cm, 02/23/22 14:24:00 EDT,... Start Date: 05/11/22 Status: Ordered ProAir HFA 90 mcg/inh inhalation aerosol with adapter 2, puffs, Inhalation, 4 times a day, PRN, # 1 each, Refills 11, Tot. Refills 11, Maintenance, 10/16/22 17:00:00 EST, Route to Pharmacy Electronically, [id number], [facility] #[id number], 163, cm, 10/16/22 16:21:00 EST, H... 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
--- OUTSIDE RECORDS SUMMARY | 2024-07-06 12:07 | XMS_ITS | Continuity of Care Document ---
Author Organization [facility] Address Unknown Care Team Providers Care Food And Beverage Operations Manager Name Role Phone Jessica Perrin MD Primary Care Physician Encounter [facility] Date(s): 10/16/21 - 11/15/21 [facility] Allergies, Adverse Reactions, Alerts Substance Reaction Severity [...] 03/10/21 15:25:00 EDT, Route to Pharmacy Electronically, [id number], 165, cm, 12/25/20 10:00:00 EDT, Height, 88, kg, 11/03/19 18:19:00... Start Date: 03/10/21 Status: Ordered calcium (as citrate)-vitamin D 315 mg-250 intl units oral tablet 2 tablet, By Mouth, 2 times a day, Tej, # 360 tablet, 3 Refills, Maintenance, 03/26/21 13:03:00 EDT, Tablet, [facility] #[id number], 2 tablet By Mouth 2 times a day,x90 days,Instr:Tej, 165, cm, 03/26/21 11:57:00 EDT, Height, 88, kg, 11/03/19 18... Start Date: 03/26/21 Stop Date: 03/21/22 Status: Ordered celecoxib 100 mg oral capsule 1 capsule = 100 mg, By Mouth, 2 times a day, PRN knee pain, # 60 capsule, 5 Refills, Maintenance, 10/22/21 10:44:00 EST, Capsule, [facility] #[id number], 165, cm, 10/22/21 9:05:00 EST, Height, 89.5, kg, 04/23/21 21:43:00 EDT, Dry Weight Start Date: 10/22/21 Status: Ordered citalopram 20 mg oral tablet 20 mg, 1, tablet, By Mouth, Daily, # 90 tablet, Refills 3, Tot. Refills 3, Maintenance, 07/12/21 18:12:00 EDT, Route to Pharmacy Electronically, [facility] #[id number], is awared of interaction w nicky, 165, cm, 04/23/21 21:43:00 EDT, He... Start Date: 07/12/21 Status: Ordered Clarinex 5 mg oral tablet 1 tablet = 5 mg, By Mouth, Daily, Discontinue loratadine, # 30 tablet, 11 Refills, Maintenance, 03/26/21 13:02:00 EDT, Tablet, [facility] #[id number], 165, cm, 03/26/21 11:57:00 EDT, Height, 88,kg, 11/03/19 18:19:00 EST, Dry Weight Start Date: 03/26/21 Status: Ordered Colace sodium 100 mg oral capsule 100 mg, 1, capsule, By Mouth, 2 times a day, PRN, with plenty of water, # 180 capsule, Refills 3, Tot. Refills 3, Maintenance, as needed for constipation, 03/26/21 13:05:00 EDT, Route to Pharmacy Electronically, [facility] #[id number], Dispense o... Start Date: 03/26/21 Status: Ordered [...] tablet, 0 Refills, Maintenance, 09/30/21 16:04:00 EST, [facility] #[id number], 165, cm, 04/23/21 21:43:00 EDT, Height, 89.5, kg, 04/23/21 21:43:00 EDT, Dry Weight Start Date: 09/30/21 Status: Ordered EPINEPHrine 0.3 mg injectable solution = 0.3 mg, Intramuscular, Once, PRN Anaphylactic Reaction, # 1 each, 0 Refills, Soft Stop, 10/22/21 10:11:00 EST, [facility] #[id number], 165, cm, 10/22/21 9:05:00 EST, Height, 89.5, kg, 04/23/2121:43:00 EDT, Dry Weight Start Date: 10/22/21 Status: Ordered fluticasone 50 mcg/inh nasal spray 2 sprays, Nares, Both, Daily, Use every day during allergy season. While using spray keep head down. 30 days not 90 days dispense when patient requested by patient, # 16 Gm, 5 Refills, Maintenance, 07/07/21 7:57:00 EDT, [facility] #[id number]... Start Date: 07/07/21 Status: Ordered hydrALAZINE 10 mg oral tablet 1, tablet, By Mouth, 3 times a day, Increase dose, # 90 tablet, Refills 11, Tot. Refills 11, 10/22/21 10:40:00 EST, Route to Pharmacy Electronically, [facility] #[id number], 165, cm, 10/22/21 9:05:00 EST, Height, 89.5, kg, 04/23/21 21:43:00 EDT,... Start Date: 10/22/21 Status: Ordered hydrochlorothiazide 12.5 mg oral tablet 1 tablet = 12.5 mg, By Mouth, Daily, discontinue HCTZ/lisinopril 25mg /20mg, # 30 tablet, 11 Refills, Maintenance, 10/29/21 13:48:00 EST, Tablet, [facility] #[id number], 165, cm, 10/29/21 12:16:00 EST, Height, 89.5, kg, 04/23/21 21:43:00 EDT, .. Start Date: 10/29/21 Status: Ordered Lancets See [...] supply, # 90 tablet, 0 Refills, Maintenance, 08/25/21 10:48:00 EST, [facility] #[id number], 165, cm, 04/23/21 21:43:00 EDT, Height, 89.5, kg, 04/23/2121:43:00 EDT, Dry Weight Start Date: 08/25/21 Status: Ordered lidocaine 5% topical film 1-3 patch, Topically, Daily, Apply patch in affected area. Remove patch(s) after 12 hours. Can reapply after resting 12 hours. Indication: diabetic neuropathy, # 30 patch, 11 Refills, Maintenance, 10/22/21 10:39:00 EST, [facility] #[id number]... Start Date: 10/22/21 Status: Ordered lisinopril 40 mg oral tablet 1 tablet = 40 mg, By Mouth, Daily, discontinue HCTZ/lisinopril 25mg /20mg, # 30 tablet, 11 Refills,Maintenance, 10/29/21 13:47:00 EST, Tablet, [facility] #[id number], Partial fill upon patient request if the prescription is for a schedule II op... Start Date: 10/29/21 Status: Ordered metFORMIN 500 mg oral tablet 1 tablet, By Mouth, 2 times a day, # 180 tablet, 3 Refills, Maintenance, 10/13/21 14:33:00 EST, [facility] #[id number], 165, cm, 04/23/21 21:43:00 EDT, Height, 89.5, kg, 04/23/21 21:43:00 EDT, Dry Weight Start Date: 10/13/21 Status: Ordered Obe-foq-vlpjs medical-grade oxford diabetic shoes, depth or hightop Fuc-ufh-fevcg medical-grade oxford diabetic shoes, depth or hightop, [...] Gm, 11 Refills, Maintenance, 10/22/21 10:43:00 EST, [facility] #[id number], Partial fill upon patient request if the prescription is for a schedule II o... Start Date: 10/22/21 Status: Ordered pravastatin 80 mg oral tablet 1 tablet = 80 mg, By Mouth, Daily, 90 days, # 90 tablet, 3 Refills, Maintenance, 12/25/20 11:15:00 EDT, Tablet, [facility] #[id number], 165, cm, 12/25/20 10:00:00 EDT, Height, 88, kg, 11/03/19 18:19:00 EST, Dry Weight Start Date: 12/25/20 Status: Ordered Premarin Vaginal 0.625 mg/gm cream with applicator = 0.5 Gm, Vaginally, Every Wednesday and , # 42.5 Gm, 11 Refills, Maintenance, 03/26/21 13:01:00 EDT, [facility] #[id number], 0.5 Gm Vaginally Every Wednesday and , 165, cm, 03/26/21 11:57:00 EDT, Height, 88, kg, 11/03/19 18:19:00 EST,... Start Date: 03/26/21 Status: Ordered PriLOSEC OTC 20 mg oral delayed release tablet 1 tablet = 20 mg, By Mouth, Daily, Take 30 mins before breakfast, # 90 tablet, 2 Refills, Maintenance, 04/08/21 10:07:00 EDT, [facility] #[id number], MD is awared of interaction with citalopram;Duplicate rx; original sent 12/25/20. Remaining r... Start Date: 04/08/21 Status: Ordered Remeron 15 mg oral tablet 0.5 tablet = 7.5 mg, By Mouth, Daily at bedtime, Decreased dose, # 45 tablet, 3 Refills, Maintenance, 03/26/21 13:13:00 EDT, Tablet, [facility] #[id number], 165, cm, 03/26/21 11:57:00 EDT, Height, 88, [...] 12/25/20 11:14:00 EDT, Route to Pharmacy Electronically, [facility] #[id number], 165, cm, 12/25/20 10:00:00 EDT, Height, 88, [...] 11 Refills, Maintenance, 10/22/21 10:44:00 EST, Capsule, [facility] #[id number], ., 165, cm, 10/22/21 9:05:00 EST, Height, 89.5, kg, 04/23/21 21:43:00 EDT, Dry Weight Start Date: 10/22/21 Status: Ordered Ventolin HFA 108 mcg/inh inhalation aerosol with adapter 2 puffs, Inhalation, 4 times a day, PRN Wheezing/Shortness of Breath, as directed 15 minutes beforeexercise 30 days not 90 days dispense when patient request it, # 8.5 Gm, 5 Refills, Maintenance, 03/26/21 13:06:00 EDT, [facility] #[id number]... 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
--- OUTSIDE RECORDS SUMMARY | 2024-07-06 12:08 | XMS_ITS | Continuity of Care Document ---
Author Organization [facility] Address [address] [place] [address]- Care Team Providers Care Jewelry Bench Molder Name Role Phone Marychuy MCCLAIN, Jessica Primary Care Physician [facility] Date[facility]): 12/07/22 - 01/06/23 [facility]/[place] [address]- [place] Allergies, Adverse Reactions, Alerts Substance Reaction [...] Vaccine Date Status Refusal Reason SARS-CoV-2 mRNA (nrmgtzj-mgjp-eekur) vax 02/17/22 Given influenza virus vaccine, inactivated [...] tablet, 11 Refills, Maintenance, 05/13/22 11:27:00 EDT, [facility] #[id number], Partial fill upon cherelle... Start Date: 05/13/22 Status: Ordered albuterol 0.083% inhalation solution 3 mL = 2.5 mg, Inhalation, Every 6 hours, # 25 each, 5 Refills, Maintenance, 08/12/22 15:02:00 EST,[facility] #[id number], 165, cm, 06/18/22 13:19:00 EDT, Height, 88.9, kg, 02/09/22 15:14:00 EDT, Dry Weight Start Date: 08/12/22 Stop Date: 02/08/23 Status: Ordered apixaban 5 mg oral tablet 1 tablet = 5 mg, By Mouth, 2 times a day, # 180 tablet, 0 Refills, Maintenance, 12/16/22 16:34:00 EDT, Tablet, [facility] #[id number], Partial fill upon patient request if the prescription is for a schedule II opioid drug., 163, cm, 12/16/22 7:58... Start Date: 12/16/22 Stop Date: 03/16/23 Status: Ordered budesonide 0.5 mg/2 mL inhalation suspension 0.5 mg, 2, mL, Neb, 2 times a day, # 120 mL, Refills 11, Tot. Refills 11, Maintenance, 10/16/22 16:58:00 EST, Suspension, Route to Pharmacy Electronically, [id number], [facility] #[id number], 163, cm, 10/16/22 16:21:00 E... Start Date: 10/16/22 Status: Ordered budesonide 0.5 mg/2 mL inhalation suspension 0.5 mg, 2, mL, Neb, 2 times a day, # 120 mL, Refills 11, Tot. Refills 11, Maintenance, 08/13/22 15:24:00 EST, Suspension, Route to Pharmacy Electronically, [id number], [facility] #[id number], 165, cm, 06/18/22 13:19:00 E... Start Date: 08/13/22 Status: Ordered calcium (as citrate)-vitamin D 315 mg-250 intl units oral tablet 2 tablet, By Mouth, 2 times a day, # 360 tablet, 0 Refills, Maintenance, 12/07/22 14:46:00 EDT, [facility] #[id number], 90, 2 tablet By Mouth 2 times a day, 163, cm, 11/05/22 16:59:00 EST, Height, 90, kg, 11/05/22 16:59:00 EST, Dry Weight Start Date: 12/07/22 Status: Ordered citalopram 20 mg oral tablet 20 mg, 1, tablet, By Mouth, Daily, # 90 tablet, Refills 3, Tot. Refills 3, Maintenance, 07/08/22 14:31:00 EDT, Route to Pharmacy Electronically, [facility] #[id number], is awared of interaction w nicky, 165, cm, 06/18/22 13:19:00 EDT, He... Start Date: 07/08/22 Status: Ordered Clarinex 5 mg oral tablet 1 tablet = 5 mg, By Mouth, Daily, # 90 tablet, 3 Refills, Maintenance, 04/29/22 12:53:00 EDT, Tablet, [facility] #[id number], 165, cm, 02/23/22 14:24:00 EDT, Height, 88.9, [...] 0 Refills, Soft Stop, 10/22/21 10:11:00 EST, [facility] #[id number], 165, cm, 10/22/21 9:05:00 EST, Height, 89.5, kg, 04/23/2121:43:00 EDT, Dry Weight Start Date: 10/22/21 Status: Ordered fluticasone 50 mcg/inh nasal spray See Instructions, SPRAY 2 TIMES IN EACH NOSTRILS EVERY DAY. NEEDED FOR ALLERGY SEASON. WHEN SPRAYING KEEP HEAD DOWN, # 16 Gm, 11 Refills, 02/17/22 13:14:00 EDT, [facility] #82561, 30, SPRAY 2 TIMES IN EACH NOSTRILS EVERY DAY. NEEDED FO... Start Date: 02/17/22 Status: Ordered formoterol 10 mcg/mL inhalation solution 2 mL = 20 mcg, Inhalation, 2 times a day, using a continuous flow nebulizer, # 120 mL, 11 Refills, Maintenance, 10/16/22 16:58:00 EST, Solution, [facility] #[id number], Partial fill upon patientrequest if the prescription [...] 11/05/22 17:53:00 EST, Route to Pharmacy Electronically, [facility] #[id number], Partial fill upon patient request if the prescription is for a schedule II opi... Start Date: 11/05/22 Stop Date: 11/10/22 Status: Ordered gabapentin 300 mg oral capsule 300 mg, 1, capsule, By Mouth, 2 times a day, PRN, # 20 capsule, Refills 0, Tot. Refills 0, Maintenance, Pain , Severe, 11/05/22 17:53:00 EST, Route to Pharmacy Electronically, [facility] #[id number], Partial fill upon patient request if the presc... Start Date: 11/05/22 Stop Date: 11/15/22 Status: Ordered hydrALAZINE 25 mg oral tablet 25 mg, 1, tablet, By Mouth, 3 times a day, discontinue hydralazine 10mg, # 90 tablet, Refills 11, Tot. Refills 11, Maintenance, 06/18/22 13:56:00 EDT, Route to Pharmacy Electronically, [facility] #[id number], Partial fill upon patient request if... Start [...] 01/16/23 14:39:00 EDT, 12/28/22 14:38:00 EDT, Cream, [facility] #38957, Partial fill upon patient request if the prescription is for a schedule II opioid drug., 1 application... Start Date: 12/28/22 Stop Date: 01/16/23 Status: Ordered levothyroxine 0.05 mg oral tablet 1 tablet, By Mouth, Daily, # 30 tablet, 11 Refills, Maintenance, 09/30/22 12:56:00 EST, [facility] #09111, 163, cm, 09/30/22 11:48:00 EST, Height, 92.8, kg, 09/24/22 22:19:00 EST, Dry Weight Start Date: 09/30/22 Status: Ordered lisinopril 40 mg oral tablet 1 tablet = 40 mg, By Mouth, 2 times a day, increase dose discontinue HCTZ 12.5mg, # 60 tablet, 11 Refills, Maintenance, 09/30/22 12:54:00 EST, Tablet, [facility] #[id number], 163, cm, 09/30/22 11:48:00 EST, Height, 92.8, kg, 09/24/22 22:19:00... Start Date: 09/30/22 Stop Date: 09/25/23 Status: Ordered Matzim LA 360 mg/24 hours oral tablet, extended release 1 tablet, By Mouth, Daily, # 90 tablet, 3 Refills, 02/17/22 13:08:00 EDT, [facility] #[id number], 165, cm, 02/17/22 12:49:00 EDT, Height, 88.9, kg, 02/09/22 15:14:00 EDT, Dry Weight Start Date: 02/17/22 Status: Ordered metFORMIN 500 mg oral tablet, extended release 1 tablet = 500 mg, By Mouth, Daily in AM, discontinue metformin 500mg with meal, # 30 tablet, 11 Refills, Maintenance, 09/30/22 12:51:00 EST, ER Tablet, [facility] #65913, 163, cm, 09/30/2310:48:00 EST, Height, 92.8, kg, 09/24/22 22:1... Start Date: 09/30/22 Status: Ordered mirtazapine 15 mg oral tablet 0.5 tablet, By Mouth, Daily at bedtime, DECREASED DOSE, # 45 tablet, 1 Refills, Maintenance, 10/20/22 20:06:00 EST, [facility] #18508, 163, cm, 10/16/22 16:21:00 EST, Height, 92.8, kg, 09/24/22 22:19:00 EST, Dry Weight Start Date: 10/20/22 Status: Ordered montelukast 10 mg oral tablet 1, tablet, By Mouth, Daily at bedtime, SUPPLY., # 90 tablet, Refills 1, Tot. Refills 1, Maintenance, 12/07/22 14:50:00 EDT, Route to Pharmacy Electronically, [facility] #[id number], 163, cm, 11/05/22 16:59:00 EST, Height, 90, kg, 11/05/22 16:59:0... Start Date: 12/07/22 Stop Date: 06/05/23 Status: Ordered Mwp-ghx-lnhyd medical-grade oxford diabetic shoes, depth or hightop Ptu-ybv-bricl medical-grade oxford diabetic shoes, depth or hightop, [...] Refills, Maintenance, 12/07/22 14:49:00 EDT, EC Capsule, [facility] #57009, 163, cm, 11/05/22 16:59:00 EST,... Start Date: 12/07/22 Status: Ordered pravastatin 80 mg oral tablet 1 tablet, By Mouth, Daily, # 90 tablet, 1 Refills, Maintenance, 12/07/22 14:47:00 EDT, [facility] #[id number], 163, cm, 11/05/22 16:59:00 EST, Height, 90, kg, 11/05/22 16:59:00 EST, Dry Weight Start Date: 12/07/22 Status: Ordered Premarin Vaginal 0.625 mg/gm cream with applicator See Instructions, APPLY 1/2 GRAM IN THE VAGINA EVERY WEDNESDAY AND WEDNESDAY, # 30 Gm, 11 Refills, Maintenance, 05/11/22 14:58:00 EDT, [facility] #04306, 30, APPLY 1/2 GRAM IN THE VAGINA EVERY WEDNESDAY AND WEDNESDAY, 165, cm, 02/23/22 14:24:00 EDT,... Start Date: 05/11/22 Status: Ordered ProAir HFA 90 mcg/inh inhalation aerosol with adapter 2, puffs, Inhalation, 4 times a day, PRN, # 1 each, Refills 11, Tot. Refills 11, Maintenance, 10/16/22 17:00:00 EST, Route to Pharmacy Electronically, [id number], [facility] #[id number], 163, cm, 10/16/22 16:21:00 EST, H... Start [...] 4, 5, 6, 7 Confirmed 08/09/06 Active [id number] Picker / Packer Yee Ceballos Confirmed Active Varicose vein Confirmed [...] Jessica Perrin MD Position: [facility] Primary Care Physician Member Role: PCP Address: Address: [address] [place] [address]- Care Team Related Persons Name: SANDY BOYCE Address: home [address] [place] [address] Name: COLT BOYCE Address: [place] [address] [place] [address]
--- OUTSIDE RECORDS SUMMARY | 2024-07-06 12:08 | XMS_ITS | Continuity of Care Document ---
Author Organization [facility] Address [address] [place] [address]- Care Team Providers Care Tube Bender Name Role Phone Marychuy MCCLAIN, Jessica Primary Care Physician [facility]20 - 01/29/21 [facility] [address] [place] [address] Allergies, Adverse Reactions, Alerts Substance [...] Refills 3, Tot. Refills 3, Maintenance, 12/25/20 11:06:00 EDT, Route to Pharmacy Electronically, [facility] #[id number], 165, cm, 12/25/20 10:00:00 EDT, Height, 88, kg, 11/03/19 18:19:00... Start Date: 12/25/20 Status: Ordered calcium (as citrate)-vitamin D 315 mg-250 intl units oral tablet 2 tablet, By Mouth, 2 times a day, Tej, # 360 tablet, 3 Refills, Maintenance, 02/02/20 16:28:00 EDT, Tablet, [facility] #61343, 2 tablet By Mouth 2 times a day,x90 days,Instr:Tej, 165, cm, 11/03/19 18:19:00 EST, Height, 88, kg, 11/03/19 18... Start Date: 02/02/20 Stop Date: 01/27/21 Status: Ordered celecoxib 100 mg oral capsule 1 capsule = 100 mg, By Mouth, 2 times a day, PRN knee pain, # 60 capsule, 5 Refills, Maintenance, 06/26/20 8:22:00 EDT, Capsule, [facility] #10513, 165, cm, 11/03/19 18:19:00 EST, Height, 88, kg, 11/03/19 18:19:00 EST, Dry Weight Start Date: 06/26/20 Status: Ordered citalopram 20 mg oral tablet 20 mg, 1, tablet, By Mouth, Daily, # 90 tablet, Refills 3, Tot. Refills 3, Maintenance, 07/01/20 17:44:00 EDT, Route to Pharmacy Electronically, [facility] #[id number], is awared of interaction w nicky, 165, cm, 11/03/19 18:19:00 EST, He... Start Date: 07/01/20 Status: Ordered Colace sodium 100 mg oral capsule 100 mg, 1, capsule, By Mouth, 2 times a day, PRN, with plenty of water, # 180 capsule, Refills 1, Tot. Refills 1, Maintenance, as needed for constipation, 01/03/21 14:13:00 EDT, Route to Pharmacy Electronically, [facility] #[id number], 165, cm, 0... Start Date: 01/03/21 Status: Ordered dilTIAZem 360 mg/24 hours oral tablet, extended release 1 tablet = 360 mg, By Mouth, Daily, # 90 tablet, 3 Refills, Maintenance, 09/05/20 9:01:00 EST, [facility] #[id number], 165, cm, 11/03/19 18:19:00 EST, Height, 88, kg, 11/03/19 18:19:00 EST, Dry Weight Start Date: 09/05/20 Status: Ordered Dulera 200 mcg-5 mcg/inh inhalation aerosol 2 puffs, Inhalation, 2 times a day, # 13 Gm, 11 Refills, Maintenance, 08/10/20 16:21:00 EST, Aerosol, [facility] #07979, 2 puffs Inhalation 2 times a day, 165, cm, 11/03/19 18:19:00 EST, Height, 88, kg, 11/03/19 18:19:00 EST, Dry Weight Start Date: 08/10/20 Status: Ordered EPINEPHrine 0.3 mg injectable solution = 0.3 mg, Intramuscular, Once, PRN Anaphylactic Reaction, # 1 each, 0 Refills, Soft Stop, 06/26/20 8:38:00 EDT, [facility] #23219, 165, cm, 11/03/19 18:19:00 EST, Height, 88, kg, 11/03/19 18:19:00 EST, Dry Weight Start Date: 06/26/20 Status: Ordered fluticasone 50 mcg/inh nasal spray 2 sprays, Nares, Both, Daily, Use every day during allergy season. While using spray keep head down. 30 days not 90 days dispense when patient requested by patient, # 16 Gm, 5 Refills, Maintenance, 12/30/20 15:00:00 EDT, [facility] #05... Start Date: 12/30/20 Status: Ordered hydrALAZINE 10 mg oral tablet 10 mg, 1, tablet, By Mouth, 2 times a day, decrease dose, # 180 tablet, Refills 3, Tot. Refills 3, Maintenance, 06/26/20 8:44:00 EDT, Route to Pharmacy Electronically, [facility] #[id number], 165, cm, 11/03/19 18:19:00 EST, Height, 88, kg, ... Start Date: 06/26/20 Stop Date: 06/21/21 Status: Ordered hydrochlorothiazide-lisinopril 25 mg-20 mg oral tablet 1 tablet, By Mouth, Daily, # 90 tablet, 3 Refills, Maintenance, 12/25/20 11:11:00 EDT, Tablet, [facility] #[id number], 90 days, 1 tablet By Mouth Daily, [...] tablet, 1 Refills, Maintenance, 08/28/20 9:20:00 EST, [facility] #[id number], 165, cm, 11/03/19 18:19:00 EST, Height, 88, kg, 11/03/19 18:19:00 EST, Dry Weight Start Date: 08/28/20 Status: Ordered loratadine 10 mg oral tablet 10 mg, 1, tablet, By Mouth, Daily, PRN, # 90 tablet, Refills 3, Tot. Refills 3, Maintenance, as needed for allergy symptoms, 12/25/20 11:11:00 EDT, Route to Pharmacy Electronically, [facility] #[id number], 165, cm, 12/25/20 10:00:00 EDT, Height,... Start Date: 12/25/20 Status: Ordered metFORMIN 500 mg oral tablet 1 tablet, By Mouth, 2 times a day, # 180 tablet, 3 Refills, Maintenance, 09/16/20 17:27:00 EST, [facility] #38391, 165, cm, 11/03/19 18:19:00 EST, Height, 88, kg, 11/03/19 18:19:00 EST, DryWeight Start Date: 09/16/20 Status: Ordered Lgy-xfn-uyahz medical-grade oxford diabetic shoes, depth or hightop Ati-ivb-aofoc medical-grade oxford diabetic shoes, depth or hightop, [...] 3 Refills, Maintenance, 12/25/20 11:15:00 EDT, Tablet, [facility] #94157, 165, cm, 12/25/20 10:00:00 EDT, Height, 88, kg, 11/03/19 18:19:00 EST, Dry Weight Start Date: 12/25/20 Status: Ordered Premarin Vaginal 0.625 mg/gm cream with applicator = 0.5 Gm, Vaginally, Every Wednesday and , # 42.5 Gm, 11 Refills, Maintenance, 02/02/20 16:27:00 EDT, [facility] #73225, discontinue estradiol 10mcg vaginal, 0.5 Gm Vaginally Every Wednesday and , 165, cm, 11/03/19 18:19:00 EST,... Start Date: 02/02/20 Status: Ordered PriLOSEC OTC 20 mg oral delayed release tablet 1 tablet = 20 mg, By Mouth, Daily, Take 30 mins before breakfast, # 90 tablet, 3 Refills, Maintenance, 12/25/20 11:14:00 EDT, [facility] #[id number], is awared of interaction with citalopram,165, cm, 12/25/20 10:00:00 EDT, Height, 88, kg,... Start Date: 12/25/20 Status: Ordered Remeron 15 mg oral tablet 1 tablet = 15 mg, By Mouth, Daily at bedtime, Increase dose, # 90 tablet, 3 Refills, Maintenance, 12/25/20 11:14:00 EDT, Tablet, [facility] #55077, 165, cm, 12/25/20 10:00:00 EDT, Height, 88, kg, 11/03/19 18:19:00 EST, Dry Weight Start Date: 12/25/20 Stop Date: 12/20/21 Status: Ordered Shoes insert, molded to foot [...] 12/25/20 11:14:00 EDT, Route to Pharmacy Electronically, [facility] #[id number], 165, cm, 12/25/20 10:00:00 EDT, Height, 88, [...] it, # 8.5 Gm, 5 Refills, Maintenance, 12/25/20 11:05:00 EDT, [facility] #[id number]... 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
--- OUTSIDE RECORDS SUMMARY | 2024-07-06 12:08 | XMS_ITS | Continuity of Care Document ---
Author Organization [facility] Address [address] [place] [address]- Care Team Providers Care Preschool Assistant Principal Name Role Phone Marychuy MCCLAIN, Jessica Primary Care Physician [facility] Date[facility]): 04[facility]20 - 05/04/20 [facility] [address] [place] [id number]- [facility] Allergies, Adverse Reactions, Alerts Substance [...] Refills, Maintenance, 08/30/19 9:25:00 EST, ER Tablet, [facility] #[id number], 162.5, cm, 07/25/19 9:45:00 ES... Start Date: [...] 02/02/20 16:28:00 EDT, Route to Pharmacy Electronically, [facility] #[id number], 165, cm, 11/03/19 18:19:00 EST, Height, 88, kg, 11/03/19 18:19:00... Start Date: 02/02/20 Status: Ordered calcium (as citrate)-vitamin D 315 mg-250 intl units oral tablet 2 tablet, By Mouth, 2 times a day, Tej, # 360 tablet, 3 Refills, Maintenance, 02/02/20 16:28:00 EDT, Tablet, [facility] #54793, 2 tablet By Mouth 2 times a day,x90 days,Instr:Tej, 165, cm, 11/03/19 18:19:00 EST, Height, 88, kg, 11/03/19 18... Start Date: 02/02/20 Stop Date: 01/27/21 Status: Ordered celecoxib 100 mg oral capsule 1 capsule = 100 mg, By Mouth, 2 times a day, PRN knee pain Discontinue topical diclofenac, # 60 capsule, 3 Refills, Maintenance, 02/26/20 12:58:00 EDT, Capsule, [facility] #83171, 165, cm, 11/03/19 18:19:00 EST, Height, 88, kg, 11/03/19 18... Start Date: 02/26/20 Status: Ordered citalopram 20 mg oral tablet 20 mg, 1, tablet, By Mouth, Daily, # 90 tablet, Refills 3, Tot. Refills 3, Maintenance, 07/18/19 10:44:28 EST, Route to Pharmacy Electronically, [id number], [facility] #99181, is awared of interaction w prilosec Start Date: 07/18/19 Status: Ordered Colace sodium 100 mg oral capsule 100 mg, 1, capsule, By Mouth, 2 times a day, PRN, with plenty of water, # 180 capsule, Refills 3, Tot. Refills 3, Maintenance, as needed for constipation, 08/30/19 9:25:00 EST, Route to Pharmacy Electronically, [facility] #28104, 162.5, cm,... Start Date: 08/30/19 Status: Ordered [...] Gm, 11 Refills, Maintenance, 10/25/19 11:57:00 EST, [facility] #[id number], dispe... Start Date: 10/25/19 Status: Ordered hydrALAZINE [...] 3 Refills, Maintenance, 09/04/19 22:49:00 EST, Tablet, [facility] #03809, 90 days, 1 tablet By Mouth Daily,Instr:discontinue HCTZ 12.5/lisnopril 20mg, 162.5, cm, 1... Start Date: 09/04/19 Status: Ordered Incruse Ellipta 62.5 mcg/inh inhalation powder = 62.5 mcg, Inhalation, Every 24 hours, doses should be taken at least 24 hours apart discontinue Tudorza, # 30 each, 11 Refills, Maintenance, 08/30/19 9:23:00 EST, [facility] #14804, 162.5, cm, 07/25/19 9:45:00 EST, Height, 85.9, [...] tablet, 1 Refills, Maintenance, 12/18/19 13:45:00 EDT, [facility] #94713, 165, cm, 11/03/19 18:19:00 EST, Height, 88, kg, 11/03/19 18:19:00 EST, Dry Weight Start Date: 12/18/19 Status: Ordered loratadine 10 mg oral tablet 10 mg, 1, tablet, By Mouth, Daily, PRN, # 90 tablet, Refills 3, Tot. Refills 3, Maintenance, as needed for allergy symptoms, 08/30/19 9:25:00 EST, Route to Pharmacy Electronically, [facility] #48449, 162.5, cm, 07/25/19 9:45:00 EST, Height,... Start Date: 08/30/19 Status: Ordered metFORMIN 500 mg oral tablet 1 tablet = 500 mg, By Mouth, 2 times a day, discontinue metformin 1000mg, # 180 tablet, 1 Refills, Maintenance, 12/21/19 7:30:00 EDT, Tablet, [facility] #03501, 165, cm, 11/03/19 18:19:00 EST, Height, 88, kg, 11/03/19 18:19:00 EST, Dry Weight Start Date: 12/21/19 Status: Ordered Ncg-ycq-abxli medical-grade oxford diabetic shoes, depth or hightop Lpx-ngb-nstdk medical-grade oxford diabetic shoes, depth or hightop, [...] 3 Refills, Maintenance, 08/30/19 9:25:00 EST, Tablet, [facility] #61477, 162.5, cm, 07/25/19 9:45:00 EST, Height, 85.9, kg, 199:45:00 EST, Dry Weight Start Date: 08/30/19 Status: Ordered Premarin Vaginal 0.625 mg/gm cream with applicator = 0.5 Gm, Vaginally, Every Wednesday and , # 42.5 Gm, 11 Refills, Maintenance, 02/02/20 16:27:00 EDT, [facility] #18200, discontinue estradiol 10mcg vaginal, 0.5 Gm Vaginally Every Wednesday and , 165, cm, 11/03/19 18:19:00 EST,... Start Date: 02/02/20 Status: Ordered PriLOSEC OTC 20 mg oral delayed release tablet 1 tablet = 20 mg, By Mouth, Daily, Take 30 mins before breakfast, # 90 tablet, 3 Refills, Maintenance, 02/02/20 16:28:00 EDT, [facility] #31200, is awared of interaction with citalopram,165, cm, 02/21/20 18:19:00 EST, Height, 88, kg,... Start Date: 02/02/20 Status: Ordered Remeron 15 mg oral tablet 0.5 tablet = 7.5 mg, By Mouth, Daily at bedtime, # 45 tablet, 1 Refills, Maintenance, 12/18/19 13:45:00 EDT, Tablet, [facility] #56750, 165, cm, 11/03/19 18:19:00 EST, Height, 88, [...] 06/28/19 7:33:11 EDT, Route to Pharmacy Electronically, [id number], [facility] #[id number] Start Date: 06/28/19 Status: Ordered Sinus rinse [...] Gm, 5 Refills, Maintenance, 04/04/20 12:19:00 EDT, [facility] #[id number]... Start Date: 04/04/20 Status: [...] 9, 10, 11, 12, 13 08/09/06 Active *[id number]-[facility] Partn isai Rossi(Confirmed) Active Prurigo nodularis(Confirmed) 08/17/08 Active Renal insufficiency(Confirmed) Active Non-insulin dependent type 2 diabetes mellitus(Confirmed) 01/24/09 Active Varicose vein(Confirmed) Active Vitamin D deficiency(Confirmed) 07/26/08 Active 1CKD Stage III. 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
--- OUTSIDE RECORDS SUMMARY | 2024-07-06 12:08 | XMS_ITS | Continuity of Care Document ---
Author Organization [facility] Address [address] [place] [address]- Care Team Providers Care Buttermaker Continuous Churn Name Role Phone Marychuy MCCLAIN, Jessica Primary Care Physician [facility] Date[facility]): 07[facility]07[facility]21 - 08/06/21 [facility] [address] [place] [id number] Allergies, Adverse Reactions, Alerts Substance Reaction [...] 03/10/21 15:25:00 EDT, Route to Pharmacy Electronically, [facility] #[id number], 165, cm, 12/25/20 10:00:00 EDT, Height, 88, kg, 11/03/19 18:19:00... Start Date: 03/10/21 Status: Ordered calcium (as citrate)-vitamin D 315 mg-250 intl units oral tablet 2 tablet, By Mouth, 2 times a day, Tej, # 360 tablet, 3 Refills, Maintenance, 03/26/21 13:03:00 EDT, Tablet, [facility] #[id number], 2 tablet By Mouth 2 times a [...] 5 Refills, Maintenance, 03/26/21 13:08:00 EDT, Capsule, [facility] #[id number], 165, cm, 03/26/21 11:57:00 EDT, Height, 88, [...] 07/12/21 18:12:00 EDT, Route to Pharmacy Electronically, [facility] #[id number], MD is awared of interaction w prilosec, 165, cm, 04/23/21 21:43:00 EDT, He... Start Date: 07/12/21 Status: Ordered Clarinex 5 mg oral tablet 1 tablet = 5 mg, By Mouth, Daily, Discontinue loratadine, # 30 tablet, 11 Refills, Maintenance, 03/26/21 13:02:00 EDT, Tablet, [facility] #[id number], 165, cm, 03/26/21 11:57:00 EDT, Height, 88,kg, 11/03/19 18:19:00 EST, Dry Weight Start Date: 03/26/21 Status: Ordered Colace sodium 100 mg oral capsule 100 mg, 1, capsule, By Mouth, 2 times a day, PRN, with plenty of water, # 180 capsule, Refills 3, Tot. Refills 3, Maintenance, as needed for constipation, 03/26/21 13:05:00 EDT, Route to Pharmacy Electronically, [facility] #[id number], Dispense o... Start Date: 03/26/21 Status: Ordered [...] tablet, 3 Refills, Maintenance, 09/05/20 9:01:00 EST, [facility] #[id number], 165, cm, 11/03/19 18:19:00 EST, Height, 88, kg, 11/03/19 18:19:00 EST, Dry Weight Start Date: 09/05/20 Status: Ordered Dulera 200 mcg-5 mcg/inh inhalation aerosol 2 puffs, Inhalation, 2 times a day, # 13 Gm, 11 Refills, Maintenance, 08/10/20 16:21:00 EST, Aerosol, [facility] #[id number], 2 puffs Inhalation 2 times a day, 165, cm, 11/03/19 18:19:00 EST, Height, 88, kg, 11/03/19 18:19:00 EST, Dry Weight Start Date: 08/10/20 Status: Ordered EPINEPHrine 0.3 mg injectable solution = 0.3 mg, Intramuscular, Once, PRN Anaphylactic Reaction, # 1 each, 0 Refills, Soft Stop, 06/26/20 8:38:00 EDT, [facility] #[id number], 165, cm, 11/03/19 18:19:00 EST, Height, 88, kg, 11/03/19 18:19:00 EST, Dry Weight Start Date: 06/26/20 Status: Ordered fluticasone 50 mcg/inh nasal spray 2 sprays, Nares, Both, Daily, Use every day during allergy season. While using spray keep head down. 30 days not 90 days dispense when patient requested by patient, # 16 Gm, 5 Refills, Maintenance, 07/07/21 7:57:00 EDT, [facility] #[id number]... Start Date: 07/07/21 Status: Ordered hydrALAZINE 10 mg oral tablet 1, tablet, By Mouth, 2 times a day, DECREASED DOSE., # 180 tablet, Refills 0, Route to Pharmacy Electronically, [facility] #[id number], 165, cm, 04/23/21 21:43:00 EDT, Height, 89.5, kg, 04/23/2121:43:00 EDT, Dry Weight Start Date: 05/30/21 Status: Ordered hydrochlorothiazide-lisinopril 25 mg-20 mg oral tablet 1 tablet, By Mouth, Daily, # 90 tablet, 3 Refills, Maintenance, 12/25/20 11:11:00 EDT, Tablet, [facility] #[id number], 90 days, 1 tablet By Mouth Daily, [...] tablet, 1 Refills, Maintenance, 03/04/21 10:16:00 EDT, [facility] #[id number], 165, cm, 12/25/20 10:00:00 EDT, Height, 88, [...] tablet, 3 Refills, Maintenance, 09/16/20 17:27:00 EST, [facility] #[id number], 165, cm, 11/03/19 18:19:00 EST, Height, 88, [...] Start Date: 04/28/21 Status: Ordered nystatin topical 911135 u/gm powder 1 application, Topically, 2 times a day, # 60 Gm, 1 Refills, Maintenance, 03/26/21 13:25:00 EDT, Powder, [facility] #[id number], Partial fill upon patient request if the prescription is for a schedule II opioid drug., 1 application Topically 2 ti... Start Date: 03/26/21 Status: Ordered Nystop 769082 u/gm powder 1 application, Topically, 2 times a day, # 60 Gm, 0 Refills, Maintenance, 04/28/21 2:38:00 EDT, Powder, Partial fill upon patient request if the prescription is for a schedule II opioid drug. Start Date: 04/28/21 Status: Ordered Baq-pug-mvfbj medical-grade oxford diabetic shoes, depth or hightop Zud-lyf-egrps medical-grade oxford diabetic shoes, depth or hightop, [...] 3 Refills, Maintenance, 12/25/20 11:15:00 EDT, Tablet, [facility] #24509, 165, cm, 12/25/20 10:00:00 EDT, Height, 88, [...] Gm, 11 Refills, Maintenance, 03/26/21 13:01:00 EDT, [facility] #[id number], 0.5 Gm Vaginally Every Wednesday and , [...] tablet, 2 Refills, Maintenance, 04/08/21 10:07:00 EDT, [facility] #[id number], is awared of interaction with citalopram;Duplicate rx; original sent 12/25/20. Remaining r... Start Date: 04/08/21 Status: Ordered Remeron 15 mg oral tablet 0.5 tablet = 7.5 mg, By Mouth, Daily at bedtime, Decreased dose, # 45 tablet, 3 Refills, Maintenance, 03/26/21 13:13:00 EDT, Tablet, [facility] #42721, 165, cm, 03/26/21 11:57:00 EDT, Height, 88, [...] 12/25/20 11:14:00 EDT, Route to Pharmacy Electronically, [facility] #[id number], 165, cm, 12/25/20 10:00:00 EDT, Height, 88, [...] Gm, 5 Refills, Maintenance, 03/26/21 13:06:00 EDT, [facility] #[id number]... Start Date: 03/26/21 Status: [...] 9, 10, 11, 12, 13 08/09/06 Active *[id number] Care Partn er Dolores Cabrera(Confirmed) Active Prurigo nodularis(Confirmed) 08/17/08 Active Renal insufficiency(Confirmed) Active Non-insulin dependent type 2 diabetes mellitus(Confirmed) 01/24/09 Active Varicose vein(Confirmed) Active Vitamin D deficiency(Confirmed) 07/26/08 Active 1CKD Stage III. 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
--- OUTSIDE RECORDS SUMMARY | 2024-07-06 12:08 | XMS_ITS | Continuity of Care Document ---
Author Organization [facility] Address [address] [place] [id number]- Care Team Providers Care Healthcare Science Specialist Name Role Phone Marychuy MCCLAIN, Jessica Primary Care Physician [facility] Date[facility]s): 05/29/24 - 06/28/24 [facility]/[address] [address]- Allergies, Adverse Reactions, Alerts Substance Reaction Severity [...] virus vaccine, inactivated 5 07/29/06 Gi javon [id number] 12y+ bivalent booster vax 03/24/23 Given [id number] 12y+ bivalent booster vax 07/28/22 Recorded SARS-CoV-2 mRNA (gkrzibr-gxrz-rsaws) vax 02/17/22 Given SARS-CoV-2 (COVID-19) mRNA BNT-162b2 [...] Refills, Maintenance, 01/19/24 8:32:00 EDT, ER Tablet, [facility] #[id number], Partial fill upon patient request if th... Start Date: 01/19/24 Status: Ordered Albuterol (Eqv-ProAir HFA) 90 mcg/inh inhalation aerosol 2 puffs, Inhalation, Every 6 hours, PRN Wheezing/Shortness of Breath, # 8.5 Gm, 5 Refills, Maintenance, 01/19/24 8:30:00 EDT, [facility] #[id number], If pump is not covered, it can [...] 01/19/24 8:40:00 EDT, Route to Pharmacy Electronically, [id number], [facility] #[id number], 165, cm, 01/19/24 7:55:00 EDT, Height, 85.... Start Date: 01/19/24 Status: Ordered busPIRone 15 mg oral tablet See Instructions, PRN as needed for anxiety, 1/3-1 tablet By Mouth 2 times a day, # 60 tablet, 5 Refills, Maintenance, 05/24/24 9:07:00 EDT, [facility] #[id number], Partial fill upon patient request if the prescription is for a schedule II opioid... Start Date: 05/24/24 Status: Ordered calcium (as citrate)-vitamin D 315 mg-250 intl units oral tablet 2 tablet, By Mouth, 2 times a day, # 360 tablet, 3 Refills, Maintenance, 03/18/24 10:33:00 EDT, [facility] #[id number], 2 tablet By Mouth 2 times a day,x90 days, 165, cm, 01/19/24 7:55:00 EDT, Height, 85.45, kg, 12/23/23 9:04:00 EDT, Dry Weight Start Date: 03/18/24 Stop Date: 03/13/25 Status: Ordered ciclopirox 8% topical solution 1 application, Topically, Daily, as directed to affected area toenails, # 6.6 mL, 11 Refills, Maintenance, 01/19/24 9:20:00 EDT, Solution, [facility] #[id number], ., 1 application Topically Daily,Instr:as directed; to affected area toenails, 165... Start Date: 01/19/24 Status: Ordered Clarinex 5 mg oral tablet 1 tablet = 5 mg, By Mouth, Daily, # 90 tablet, 3 Refills, Maintenance, 03/18/24 10:23:00 EDT, Tablet, [facility] #[id number], 165, cm, 01/19/24 7:55:00 EDT, Height, 85.45, [...] 11 Refills, Maintenance, 01/19/24 8:42:00 EDT, Gel, [facility] #52706, ., 165, cm, 01/19/24 7:55:00 EDT, Height, 85.45, kg, 12/23/23 9:04:00 EDT,Dry Weight Start Date: 01/19/24 Stop Date: 07/05/24 Status: Ordered Eliquis 5 mg oral tablet 1 tablet, By Mouth, 2 times a day, # 180 tablet, 3 Refills, Maintenance, 05/31/24 16:50:00 EDT, [facility] #[id number], 165, cm, 05/30/24 17:23:00 EDT, Height, 87.5, kg, 01/21/24 16:07:00 EDT, Dry Weight Start Date: 05/31/24 Status: Ordered EPINEPHrine 0.3 mg injectable solution = 0.3 mg, Intramuscular, Once, PRN Anaphylactic Reaction, # 1 each, 0 Refills, Soft Stop, 10/22/21 10:11:00 EST, [facility] #[id number], 165, cm, 10/22/21 9:05:00 EST, Height, 89.5, kg, 04/23/2121:43:00 EDT, Dry Weight Start Date: 10/22/21 Status: Ordered escitalopram 10 mg oral tablet 1 tablet = 10 mg, By Mouth, Daily, discontinue citalopram, # 30 tablet, 11 Refills, Maintenance, 01/19/24 8:34:00 EDT, Tablet, [facility] #34988, Partial fill upon patient request if the prescription is for a schedule II opioid drug., 165, c... Start Date: 01/19/24 Status: Ordered fluticasone 50 mcg/inh nasal spray 2 sprays, Nares, Both, Daily, Use every day during allergy season. While using spray keep head down., # 3 each, 3 Refills, Maintenance, 03/18/24 10:28:00 EDT, [facility] #[id number], ., 2 spraysNares, Both Daily,x90 days,Instr:Use every day duri... Start Date: 03/18/24 Stop Date: 03/13/25 Status: Ordered formoterol 10 mcg/mL inhalation solution See Instructions, USE 2 ML VIA NEBULIZER TWICE DAILY USING A CONTINUOUS FLOW VIA NEBULIZER, # 120 mL, 11 Refills, Maintenance, 01/19/24 8:40:00 EDT, [facility] #[id number], 165, cm, 01/19/24 7:55:00 EDT, Height, 85.45, kg, 12/23/23 9:04:00 EDT, D... Start Date: 01/19/24 Status: Ordered glucagon 3 mg nasal powder = 3 mg, Naris, Left, Once, PRN unresponsive patient with low blood sugar, Dx insulin dependent DM 2E11.9 Z79.4, # 1 each, 1 Refills, Soft Stop, 05/24/24 9:00:00 EDT, [facility] #51558, Dx insulin dependent DM 2; E11.9; Z79.4, [...] E11.9 One Touch Damaris, DM type 2, 06/25/24 14:00:00 EDT, Compound, 165, cm, 05/30/24 17:23:00 EDT, Height, 87.5, kg, 0... Start Date: 06/25/24 Status: Ordered levothyroxine 0.05 mg oral tablet 1 tablet, By Mouth, Daily, # 90 tablet, 3 Refills, Maintenance, 03/18/24 10:31:00 EDT, [facility] #[id number], 165, cm, 01/19/24 7:55:00 EDT, Height, 85.45, kg, 12/23/23 9:04:00 EDT, Dry Weight Start Date: 03/18/24 Stop Date: 03/13/25 Status: Ordered lisinopril 40 mg oral tablet 1 tablet = 40 mg, By Mouth, 2 times a day, for 90 days, 11 AM, 5PM increase dose, # 180 tablet, 3 Refills, Hard Stop 05/19/25 9:07:00 EDT, 05/24/24 9:07:00 EDT, Tablet, [facility] #[id number], 165, cm, 05/24/24 7:58:00 EDT, Height, 87.5, kg, ... Start Date: 05/24/24 Stop Date: 05/19/25 Status: Ordered Matzim LA 180 mg/24 hours oral tablet, extended release 1 tablet = 180 mg, By Mouth, Daily in AM, Take at 11 AM, # 90 tablet, 3 Refills, Maintenance, 03/18/24 9:58:00 EDT, ER Tablet, [facility] #[id number], 165, cm, 01/19/24 7:55:00 EDT, Height, 85.45, kg, 12/23/23 9:04:00 EDT, Dry Weight Start Date: 03/18/24 Stop Date: 03/13/25 Status: Ordered metoprolol 25 mg oral tablet, extended release 25 mg, 1, tablet, By Mouth, Daily, # 30 tablet, Refills 11, Tot. Refills 11, Maintenance, 01/19/24 8:40:00 EDT, Route to Pharmacy Electronically, [facility] #[id number], 165, cm, 01/19/24 7:55:00 EDT, Height, 85.45, kg, 12/23/23 9:04:00 EDT, Dry... Start Date: 01/19/24 Status: Ordered mirtazapine 15 mg oral tablet 0.5 tablet, By Mouth, Daily at bedtime, # 45 tablet, 3 Refills, Maintenance, 03/18/24 10:22:00 EDT,[facility] #[id number], 165, cm, 01/19/24 7:55:00 EDT, Height, 85.45, kg, 12/23/23 9:04:00 EDT, Dry Weight Start Date: 03/18/24 Stop Date: 03/13/25 Status: Ordered montelukast 10 mg oral tablet 1, tablet, By Mouth, Daily at bedtime, # 90 tablet, Refills 3, Tot. Refills 3, Maintenance, 05/31/24 16:52:00 EDT, Route to Pharmacy Electronically, [facility] #[id number], 165, cm, 05/30/24 17:23:00 EDT, Height, 87.5, kg, 01/21/24 16:07:00 EDT,... Start Date: 05/31/24 Status: Ordered Nucala Prefilled Autoinjector 100 mg/mL subcutaneous solution = 100 mg, Subcutaneous Infusion, Every 28 days, j45.40, # 1 each, 11 Refills, Maintenance, 01/12/2414:58:00 EDT, [facility], Partial fill upon patient request if the prescription isfor a schedule II opioid drug., 165, cm, 01/04/24 1... Start Date: 01/13/24 Status: Ordered Gwl-tcq-rhjtw medical-grade oxford diabetic shoes, depth or hightop Hgz-vqx-yekbx medical-grade oxford diabetic shoes, depth or hightop, [...] 05/24/24 Stop Date: 05/19/25 Status: Ordered Pen [place], 32 G x 4 mm BD Ultra [...] tablet, 3 Refills, Maintenance, 05/22/24 16:11:00 EDT, [facility] #[id number], 165, cm, 04/05/24 9:15:00 EDT, Height, 87.5, kg, 01/21/24 16:07:00 EDT, Dry Weight Start Date: 05/22/24 Stop Date: 05/17/25 Status: Ordered Premarin Vaginal 0.625 mg/gm cream with applicator See Instructions, APPLY 1/2 GRAM IN THE VAGINA EVERY WEDNESDAY AND WEDNESDAY, # 30 Gm, 11 Refills, Maintenance, 01/19/24 9:20:00 EDT, [facility] #22051, 30, APPLY 1/2 GRAM IN THE VAGINA [...] in AM, at 11 AM Given by customer services coordinator, Dr. Indio Mason, # 30 tablet, Refills [...] day, PRN itching Apply to lower extremities Swedish, # 30 Gm, 2Refills, Maintenance, 02/23/24 8:27:00 EDT, [facility] #28613, 1 application Topically 3 times a day,Instr:PRN itching ; Apply to lower e... Start Date: 02/23/24 Status: Ordered Victoza 18 mg/3 mL subcutaneous solution See Instructions, 0.6 mg subcutaneous injection daily for 1 week then 1.2 mg Subcutaneous InjectionDaily, # 6 mL, 11 Refills, Maintenance, 05/24/24 8:50:00 EDT, Solution, [facility] #[id number], ., 165, cm, 05/24/24 7:58:00 EDT, Height, 87.5, kg... Start Date: 05/24/24 Status: Ordered Wixela Inhub 100 mcg-50 mcg inhalation powder 1 inhalation, Inhalation, 2 times a day, J45..0rinse mouth and throat after use, # 1 each, 5 Refills, Maintenance, 01/26/24 9:28:00 EDT, Powder, [facility] #[id number], Partial fill upon patientrequest if the prescription [...] 5, 6, 7, 8 Confirmed 08/09/06 Active *[id number] Methods Examiner Yee Ceballos Confirmed Active Varicose vein Confirmed [...] Care Member Role: PCP Address: Address: [address] [place] [address]- Care Team Related Persons Name: SANDY BOYCE Address: home [address] [place] [address] Name: CARLI COLT Address: home [address] [place] [address]
--- OUTSIDE RECORDS SUMMARY | 2024-07-06 12:08 | XMS_ITS | Continuity of Care Document ---
Author Organization [facility] Address [address] [place] [address]- Care Team Providers Care Software Integration Developer Name Role Phone Marychuy MCCLAIN, Jessica Primary Care Physician [facility] 08[facility]10[facility]22 - 09/09/22 [facility] [address]- [place] Allergies, Adverse Reactions, Alerts Substance Reaction [...] Vaccine Date Status Refusal Reason SARS-CoV-2 mRNA (dprdkkr-eyvs-sldve) vax 02/17/22 Given influenza virus vaccine, inactivated [...] tablet, 11 Refills, Maintenance, 05/13/22 11:27:00 EDT, [facility] #[id number], Partial fill upon cherelle... Start Date: 05/13/22 Status: Ordered albuterol 0.083% inhalation solution 3 mL = 2.5 mg, Inhalation, Every 6 hours, # 25 each, 5 Refills, Maintenance, 08/12/22 15:02:00 EST,[facility] #[id number], 165, cm, 06/18/22 13:19:00 EDT, Height, 88.9, kg, 02/09/22 15:14:00 EDT, Dry Weight Start Date: 08/12/22 Stop Date: 02/08/23 Status: Ordered budesonide 0.5 mg/2 mL inhalation suspension 0.5 mg, 2, mL, Neb, 2 times a day, # 120 mL, Refills 11, Tot. Refills 11, Maintenance, 08/13/22 15:24:00 EST, Suspension, Route to Pharmacy Electronically, [id number], [facility] #[id number], 165, cm, 06/18/22 13:19:00 E... Start Date: 08/13/22 Status: Ordered calcium (as citrate)-vitamin D 315 mg-250 intl units oral tablet 2 tablet, By Mouth, 2 times a day, # 360 tablet, 0 Refills, [facility] #[id number], 90, TAKE 2TABLETS BY MOUTH TWICE DAILY, 165, cm, 02/23/22 14:24:00 EDT, Height, 88.9, kg, 02/09/22 15:14:00 EDT, Dry Weight Start Date: 04/01/22 Status: Ordered citalopram 20 mg oral tablet 20 mg, 1, tablet, By Mouth, Daily, # 90 tablet, Refills 3, Tot. Refills 3, Maintenance, 07/08/22 14:31:00 EDT, Route to Pharmacy Electronically, [facility] #[id number], MD is awared of interaction w nicky, 165, cm, 06/18/22 13:19:00 EDT, He... Start Date: 07/08/22 Status: Ordered Clarinex 5 mg oral tablet 1 tablet = 5 mg, By Mouth, Daily, # 90 tablet, 3 Refills, Maintenance, 04/29/22 12:53:00 EDT, Tablet, [facility] #[id number], 165, cm, 02/23/22 14:24:00 EDT, Height, 88.9, [...] 0 Refills, Soft Stop, 10/22/21 10:11:00 EST, [facility] #49946, 165, cm, 10/22/21 9:05:00 EST, Height, 89.5, kg, 04/23/2121:43:00 EDT, Dry Weight Start Date: 10/22/21 Status: Ordered fluticasone 50 mcg/inh nasal spray See Instructions, SPRAY 2 TIMES IN EACH NOSTRILS EVERY DAY. NEEDED FOR ALLERGY SEASON. WHEN SPRAYING KEEP HEAD DOWN, # 16 Gm, 11 Refills, 02/17/22 13:14:00 EDT, [facility] #81934, 30, SPRAY 2 TIMES IN EACH NOSTRILS EVERY DAY. NEEDED FO... Start Date: 02/17/22 Status: Ordered formoterol 10 mcg/mL inhalation solution 2 mL = 20 mcg, Inhalation, 2 times a day, using a continuous flow nebulizer, # 60 each, 11 Refills,Maintenance, 08/13/22 15:24:00 EST, Solution, [facility] #[id number], 165, cm, 06/18/22 13:19:00 EDT, Height, 88.9, [...] 06/18/22 13:56:00 EDT, Route to Pharmacy Electronically, [facility] #[id number], Partial fill upon patient request if... Start Date: 06/18/22 Status: Ordered hydrochlorothiazide 12.5 mg oral tablet 1 tablet = 12.5 mg, By Mouth, Daily, discontinue HCTZ/lisinopril 25mg /20mg, # 30 tablet, 11 Refills, Maintenance, 10/29/21 13:48:00 EST, Tablet, [facility] #56541, 165, cm, 10/29/21 12:16:00 EST, Height, 89.5, kg, 04/23/21 21:43:00 EDT, .. Start Date: 10/29/21 Status: Ordered levothyroxine 0.05 mg oral tablet 1 tablet, By Mouth, Daily, # 90 tablet, 1 Refills, Maintenance, 05/20/22 16:09:00 EDT, [facility] #[id number], 165, cm, 05/20/22 16:02:00 EDT, Height, 88.9, kg, 02/09/22 15:14:00 EDT, Dry Weight Start Date: 05/20/22 Status: Ordered lisinopril 40 mg oral tablet 1 tablet = 40 mg, By Mouth, Daily, discontinue HCTZ/lisinopril 25mg /20mg, # 30 tablet, 11 Refills,Maintenance, 10/29/21 13:47:00 EST, Tablet, [facility] #[id number], Partial fill upon patient request if the prescription is for a schedule II op... Start Date: 10/29/21 Status: Ordered Matzim LA 360 mg/24 hours oral tablet, extended release 1 tablet, By Mouth, Daily, # 90 tablet, 3 Refills, 02/17/22 13:08:00 EDT, [facility] #[id number], 165, cm, 02/17/22 12:49:00 EDT, Height, 88.9, kg, 02/09/22 15:14:00 EDT, Dry Weight Start Date: 02/17/22 Status: Ordered metFORMIN 500 mg oral tablet 1 tablet, By Mouth, 2 times a day, # 180 tablet, 3 Refills, Maintenance, 10/13/21 14:33:00 EST, [facility] #[id number], 165, cm, 04/23/21 21:43:00 EDT, Height, 89.5, kg, 04/23/21 21:43:00 EDT, Dry Weight Start Date: 10/13/21 Status: Ordered mirtazapine 15 mg oral tablet 0.5 tablet, By Mouth, Daily at bedtime, DECREASED DOSE., # 45 tablet, 1 Refills, Maintenance, 05/12/22 9:17:00 EDT, [facility] #[id number], 165, cm, 02/23/22 14:24:00 EDT, Height, 88.9, kg, 02/09/22 15:14:00 EDT, Dry Weight Start Date: 05/12/22 Status: Ordered montelukast 10 mg oral tablet 1, tablet, By Mouth, Daily at bedtime, SUPPLY., # 90 tablet, Refills 1, Maintenance, 06/18/22 14:04:00 EDT, Route to Pharmacy Electronically, [facility] #[id number], 165, cm, 06/18/22 13:19:00 EDT, Height, 88.9, kg, 02/09/22 15:14:00 EDT, Dry Weight Start Date: 06/18/22 Stop Date: 09/16/22 Status: Ordered Swn-ifs-rrbuo medical-grade oxford diabetic shoes, depth or hightop Tqo-fpl-cvqla medical-grade oxford diabetic shoes, depth or hightop, [...] Refills, Maintenance, 12/18/21 15:48:00 EDT, EC Capsule, [facility] #[id number], 165, cm, 10/29/21 12:16:00 EST,... Start Date: 12/18/21 Status: Ordered Paxlovid 150 mg-100 mg (150 mg-100 mg Dose) oral tablet See Instructions, Three tablets by mouth BID as per package directions, # 1 pack/packet, 0 Refills,Acute 06/11/23 9:38:00 EDT, 06/10/22 9:37:00 EDT, [facility] #[id number], Partial fill upon patient request if the prescription is for a schedule... Start Date: 06/10/22 Stop Date: 06/11/23 Status: Ordered pravastatin 80 mg oral tablet 1 tablet, By Mouth, Daily, # 90 tablet, 1 Refills, Maintenance, 06/27/22 12:04:00 EDT, [facility] #[id number], 165, cm, 06/18/22 13:19:00 EDT, Height, 88.9, kg, 02/09/22 15:14:00 EDT, Dry Weight Start Date: 06/27/22 Status: Ordered Premarin Vaginal 0.625 mg/gm cream with applicator See Instructions, APPLY 1/2 GRAM IN THE VAGINA EVERY WEDNESDAY AND WEDNESDAY, # 30 Gm, 11 Refills, Maintenance, 05/11/22 14:58:00 EDT, [facility] #21208, 30, APPLY 1/2 GRAM IN THE VAGINA [...] Gm, 5 Refills, Maintenance, 05/13/22 11:27:00 EDT, [facility] #[id number], Partial fill upon patient request if the [...] 4, 5, 6, 7 Confirmed 08/09/06 Active *[id number] [employer]ger Automatic Isabel Arellano Confirmed Active Varicose vein Confirmed [...] Team Personnel Name: Carlos RN, Haley Position: [facility] RN Member Role: Primary Care Nurse Name: Marychuy MCCLAIN, Jessica Position: [facility] Primary Care Physician Member Role: PCP Address: Address: [address] [place] [address] Care Team Related Persons Name: TYESHA BOYCEMEN Address: home [address] [place] [address] Name: COLT BOYCE Address: [address] [place] [address]
--- OUTSIDE RECORDS SUMMARY | 2024-07-06 12:08 | XMS_ITS | Continuity of Care Document ---
Author Organization [facility] Address [address] [place] [id number]- Care Team Providers Care Bagel Maker Name Role Phone Marychuy MCCLAIN, Jessica Primary Care Physician [facility]counter [facility] Date[facility]): 12/22/23 - 01/21/24 [facility]/[address] [address]- Allergies, Adverse Reactions, Alerts Substance Reaction Severity [...] virus vaccine, inactivated 5 07/29/06 Gi javon [id number] 12y+ bivalent booster vax 03/24/23 Given [id number] 12y+ bivalent booster vax 07/28/22 Recorded SARS-CoV-2 mRNA (gvzftoe-pbow-sqawo) vax 02/17/22 Given SARS-CoV-2 (COVID-19) mRNA BNT-162b2 [...] Refills, Maintenance, 01/19/24 8:32:00 EDT, ER Tablet, [facility] #[id number], Partial fill upon patient request if th... Start Date: 01/19/24 Status: Ordered Albuterol (Eqv-ProAir HFA) 90 mcg/inh inhalation aerosol 2 puffs, Inhalation, Every 6 hours, PRN Wheezing/Shortness of Breath, # 8.5 Gm, 5 Refills, Maintenance, 01/19/24 8:30:00 EDT, [facility] #[id number], If pump is not covered, it can [...] 01/19/24 8:40:00 EDT, Route to Pharmacy Electronically, [id number], [facility] #[id number], 165, cm, 01/19/24 7:55:00 EDT, Height, 85.... Start Date: 01/19/24 Status: Ordered calcium (as citrate)-vitamin D 315 mg-250 intl units oral tablet 2 tablet, By Mouth, 2 times a day, # 360 tablet, 3 Refills, Maintenance, 03/18/24 10:33:00 EDT, [facility] #[id number], 2 tablet By Mouth 2 times a [...] Stop 03/18/24 10:33:00 EDT, 03/24/23 10:33:00 EDT, [facility] #[id number], 160, cm, 03/24/23 10:19:00 EDT, Height, 89.54, kg, 02/09/23 16:45:00 EDT, Dry Weight Start Date: 03/24/23 Stop Date: 03/18/24 Status: Ordered ciclopirox 8% topical solution 1 application, Topically, Daily, as directed to affected area toenails, # 6.6 mL, 11 Refills, Maintenance, 01/19/24 9:20:00 EDT, Solution, [facility] #[id number], ., 1 application Topically Daily,Instr:as directed; to affected area toenails, 165... Start Date: 01/19/24 Status: Ordered Clarinex 5 mg oral tablet 1 tablet = 5 mg, By Mouth, Daily, # 90 tablet, 3 Refills, Maintenance, 03/18/24 10:23:00 EDT, Tablet, [facility] #[id number], 165, cm, 01/19/24 7:55:00 EDT, Height, 85.45, kg, 12/23/23 9:04:00 EDT, Dry Weight Start Date: 03/18/24 Stop Date: 03/13/25 Status: Ordered Clarinex 5 mg oral tablet 1 tablet = 5 mg, By Mouth, Daily, for 90 days, # 90 tablet, 3 Refills, Hard Stop 03/18/24 10:23:00 EDT, 03/24/23 10:23:00 EDT, Tablet, [facility] #[id number], 160, cm, 03/24/23 10:19:00 EDT, Height, 89.54, [...] 11 Refills, Maintenance, 01/19/24 8:42:00 EDT, Gel, [facility] #[id number], ., 165, cm, 01/19/24 7:55:00 EDT, Height, 85.45, kg, 12/23/23 9:04:00 EDT,Dry Weight Start Date: 01/19/24 Stop Date: 07/05/24 Status: Ordered Eliquis 5 mg oral tablet 1 tablet, By Mouth, 2 times a day, # 180 tablet, 3 Refills, Maintenance, 01/19/24 9:20:00 EDT, [facility] #[id number], 165, cm, 01/19/24 7:55:00 EDT, Height, 85.45, kg, 12/23/23 9:04:00 EDT, DryWeight Start Date: 01/19/24 Status: Ordered EPINEPHrine 0.3 mg injectable solution = 0.3 mg, Intramuscular, Once, PRN Anaphylactic Reaction, # 1 each, 0 Refills, Soft Stop, 10/22/21 10:11:00 EST, [facility] #[id number], 165, cm, 10/22/21 9:05:00 EST, Height, 89.5, kg, 04/23/2121:43:00 EDT, Dry Weight Start Date: 10/22/21 Status: Ordered escitalopram 10 mg oral tablet 1 tablet = 10 mg, By Mouth, Daily, discontinue citalopram, # 30 tablet, 11 Refills, Maintenance, 01/19/24 8:34:00 EDT, Tablet, [facility] #[id number], Partial fill upon patient request if the prescription is for a schedule II opioid drug., 165, c... Start Date: 01/19/24 Status: Ordered fluticasone 50 mcg/inh nasal spray 2 sprays, Nares, Both, Daily, Use every day during allergy season. While using spray keep head down., # 3 each, 3 Refills, Maintenance, 03/18/24 10:28:00 EDT, [facility] #[id number], ., 2 spraysNares, Both Daily,x90 days,Instr:Use every day duri... Start Date: 03/18/24 Stop Date: 03/13/25 Status: Ordered formoterol 10 mcg/mL inhalation solution See Instructions, USE 2 ML VIA NEBULIZER TWICE DAILY USING A CONTINUOUS FLOW VIA NEBULIZER, # 120 mL, 11 Refills, Maintenance, 01/19/24 8:40:00 EDT, [facility] #[id number], 165, cm, 01/19/24 7:55:00 EDT, Height, 85.45, [...] tablet, 3 Refills, Maintenance, 03/18/24 10:31:00 EDT, [facility] #[id number], 165, cm, 01/19/24 7:55:00 EDT, Height, 85.45, kg, 12/23/23 9:04:00 EDT, Dry Weight Start Date: 03/18/24 Stop Date: 03/13/25 Status: Ordered levothyroxine 0.05 mg oral tablet 1 tablet, By Mouth, Daily, for 90 days, # 90 tablet, 3 Refills, Hard Stop 03/18/24 10:31:00 EDT, 03/24/23 10:31:00 EDT, [facility] #[id number], 160, cm, 03/24/23 10:19:00 EDT, Height, 89.54, kg,02/09/23 16:45:00 EDT, Dry Weight Start Date: 03/24/23 Stop Date: 03/18/24 Status: Ordered lisinopril 40 mg oral tablet 1 tablet = 40 mg, By Mouth, Daily in AM, 11 AM Decreased dose, # 90 tablet, 3 Refills, Maintenance,03/18/24 10:12:00 EDT, Tablet, [facility] #[id number], 165, cm, 01/19/24 7:55:00 EDT, Height, 85.45, kg, 12/23/23 9:04:00 EDT, Dry Weight Start Date: 03/18/24 Stop Date: 03/13/25 Status: Ordered lisinopril 40 mg oral tablet 1 tablet = 40 mg, By Mouth, Daily in AM, for 90 days, 11 AM Decreased dose, # 90 tablet, 3 Refills,Hard Stop 03/18/24 10:12:00 EDT, 03/24/23 10:12:00 EDT, Tablet, [facility] #[id number], 160, cm, 03/24/23 9:26:00 EDT, Height, 89.54, kg, ... Start Date: 03/24/23 Stop Date: 03/18/24 Status: Ordered Matzim LA 180 mg/24 hours oral tablet, extended release 1 tablet = 180 mg, By Mouth, Daily in AM, Take at 11 AM, # 90 tablet, 3 Refills, Maintenance, 03/18/24 9:58:00 EDT, ER Tablet, [facility] #[id number], 165, cm, 01/19/24 7:55:00 EDT, Height, 85.45, [...] 9:58:00 EDT, 03/24/23 9:58:00 EDT, ER Tablet, [facility] #[id number], 160, cm, 03/24/23 9:26:00 EDT, H... Start Date: 03/24/23 Stop Date: 03/18/24 Status: Ordered MetFORMIN (Eqv-Glucophage XR) 500 mg oral tablet, extended release 1 tablet, By Mouth, 2 times a day with meals, INCREASE DOSE, # 180 tablet, 3 Refills, Maintenance, 12/22/23 16:13:00 EDT, [facility] #[id number], 165, cm, 12/20/23 5:43:00 EDT, Height, 84.5, kg,12/19/23 17:15:00 EDT, Dry Weight Start Date: 12/22/23 Status: Ordered metoprolol 25 mg oral tablet, extended release 25 mg, 1, tablet, By Mouth, Daily, # 30 tablet, Refills 11, Tot. Refills 11, Maintenance, 01/19/24 8:40:00 EDT, Route to Pharmacy Electronically, [facility] #[id number], 165, cm, 01/19/24 7:55:00 EDT, Height, 85.45, kg, 12/23/23 9:04:00 EDT, Dry... Start Date: 01/19/24 Status: Ordered mirtazapine 15 mg oral tablet 0.5 tablet, By Mouth, Daily at bedtime, # 45 tablet, 3 Refills, Maintenance, 03/18/24 10:22:00 EDT,[facility] #[id number], 165, cm, 01/19/24 7:55:00 EDT, Height, 85.45, kg, 12/23/23 9:04:00 EDT, Dry Weight Start Date: 03/18/24 Stop Date: 03/13/25 Status: Ordered mirtazapine 15 mg oral tablet 0.5 tablet, By Mouth, Daily at bedtime, for 90 days, # 45 tablet, 3 Refills, Hard Stop 03/18/24 10:22:00 EDT, 03/24/23 10:22:00 EDT, [facility] #[id number], 160, cm, 03/24/23 10:19:00 EDT, Height, 89.54, kg, 02/09/23 16:45:00 EDT, Dry Weight Start Date: 03/24/23 Stop Date: 03/18/24 Status: Ordered montelukast 10 mg oral tablet 1, tablet, By Mouth, Daily at bedtime, SUPPLY., # 90 tablet, Refills 3, Tot. Refills 3, Maintenance, 06/05/23 14:50:00 EDT, Route to Pharmacy Electronically, [facility] #[id number], 160, cm, 03/24/23 10:19:00 EDT, Height, 89.54, kg, 02/09/23 16:4... Start Date: 06/05/23 Status: Ordered Nucala Prefilled Autoinjector 100 mg/mL subcutaneous solution = 100 mg, Subcutaneous Infusion, Every 28 days, [id number], # 1 each, 11 Refills, Maintenance, 01/12/2414:58:00 EDT, [facility], Partial fill upon patient request if the prescription isfor a schedule II opioid drug., 165, cm, 01/04/24 1... Start Date: 01/13/24 Status: Ordered Gnt-yam-krkfc medical-grade oxford diabetic shoes, depth or hightop Hys-cwz-oorme medical-grade oxford diabetic shoes, depth or hightop, [...] capsule, 3 Refills, Maintenance, 03/18/24 10:28:00 EDT, [facility] #[id number], 165, cm, 01/19/24 7:55:00 EDT, Height, 85.45, kg, 12/23/23 9:04:00 EDT, Dry Weight Start Date: 03/18/24 Stop Date: 03/13/25 Status: Ordered omeprazole 20 mg oral enteric coated capsule 1 capsule = 20 mg, By Mouth, Daily, for 90 days, 30 minutes before breakfast MD is aware of interaction with citalopram, # 90 capsule, 3 Refills, Hard Stop 03/18/24 10:28:00 EDT, 03/24/23 10:28:00 EDT, [facility] #31411, 160, cm, 03/24/23 1... Start Date: 03/24/23 Stop Date: 03/18/24 Status: Ordered pravastatin 80 mg oral tablet 1 tablet, By Mouth, Daily, # 90 tablet, 3 Refills, Maintenance, 03/24/23 10:32:00 EDT, [facility] #[id number], 160, cm, 03/24/23 10:19:00 EDT, Height, 89.54, kg, 02/09/23 16:45:00 EDT, Dry Weight Start Date: 03/24/23 Stop Date: 03/18/24 Status: Ordered Premarin Vaginal 0.625 mg/gm cream with applicator See Instructions, APPLY 1/2 GRAM IN THE VAGINA EVERY WEDNESDAY AND WEDNESDAY, # 30 Gm, 11 Refills, Maintenance, 01/19/24 9:20:00 EDT, [facility] #65863, 30, APPLY 1/2 GRAM IN THE VAGINA [...] in AM, at 11 AM Given by summer babysitter, Dr. Indio Mason, # 30 tablet, Refills [...] 5, 6, 7, 8 Confirmed 08/09/06 Active *[id number] Human Relations Professor Michelle aCin Confirmed Active Varicose vein Confirmed Active 1occlusive [...] Team Personnel Name: Carlos PAREDES, Haley Position: [facility] RN Member Role: Primary Care Nurse Name: Jessica Perrin MD Position: [facility] Physician - Primary Care Member Role: PCP Address: Address: [address] [place] [address]- Care Team Related Persons Name: CARLI SANDY Address: home [address] [place] [address] Name: COLT BOYCE Address: [address] [place] [address]
--- OUTSIDE RECORDS SUMMARY | 2024-07-06 12:08 | XMS_ITS | Continuity of Care Document ---
Author Organization [facility] Address [address] [place] [address]- Care Team Providers Care Marketing Planning Manager Name Role Phone Marychuy MCCLAIN, Jessica Primary Care Physician [facility] Date[facility]s): 09[facility]10[facility]22 - 10/10/22 [facility] [address]- [place] Allergies, Adverse Reactions, Alerts Substance Reaction [...] Vaccine Date Status Refusal Reason SARS-CoV-2 mRNA (amoozwn-ujsr-gnelr) vax 02/17/22 Given influenza virus vaccine, inactivated [...] tablet, 11 Refills, Maintenance, 05/13/22 11:27:00 EDT, [facility] #[id number], Partial fill upon cherelle... Start Date: 05/13/22 Status: Ordered albuterol 0.083% inhalation solution 3 mL = 2.5 mg, Inhalation, Every 6 hours, # 25 each, 5 Refills, Maintenance, 08/12/22 15:02:00 EST,[facility] #[id number], 165, cm, 06/18/22 13:19:00 EDT, Height, 88.9, kg, 02/09/22 15:14:00 EDT, Dry Weight Start Date: 08/12/22 Stop Date: 02/08/23 Status: Ordered budesonide 0.5 mg/2 mL inhalation suspension 0.5 mg, 2, mL, Neb, 2 times a day, # 120 mL, Refills 11, Tot. Refills 11, Maintenance, 08/13/22 15:24:00 EST, Suspension, Route to Pharmacy Electronically, [id number], [facility] #[id number], 165, cm, 06/18/22 13:19:00 E... Start Date: 08/13/22 Status: Ordered calcium (as citrate)-vitamin D 315 mg-250 intl units oral tablet 2 tablet, By Mouth, 2 times a day, # 360 tablet, 0 Refills, Maintenance, 09/11/22 8:59:00 EST, [facility] #[id number], 90, TAKE 2 TABLETS BY MOUTH TWICE DAILY, 165, cm, 06/18/22 13:19:00 EDT, Height, 88.9, kg, 02/09/22 15:14:00 EDT, Dry Weight Start Date: 09/11/22 Status: Ordered citalopram 20 mg oral tablet 20 mg, 1, tablet, By Mouth, Daily, # 90 tablet, Refills 3, Tot. Refills 3, Maintenance, 07/08/22 14:31:00 EDT, Route to Pharmacy Electronically, [facility] #[id number], MD is awared of interaction w nicky, 165, cm, 06/18/22 13:19:00 EDT, He... Start Date: 07/08/22 Status: Ordered Clarinex 5 mg oral tablet 1 tablet = 5 mg, By Mouth, Daily, # 90 tablet, 3 Refills, Maintenance, 04/29/22 12:53:00 EDT, Tablet, [facility] #[id number], 165, cm, 02/23/22 14:24:00 EDT, Height, 88.9, [...] 0 Refills, Soft Stop, 10/22/21 10:11:00 EST, [facility] #[id number], 165, cm, 10/22/21 9:05:00 EST, Height, 89.5, kg, 04/23/2121:43:00 EDT, Dry Weight Start Date: 10/22/21 Status: Ordered fluticasone 50 mcg/inh nasal spray See Instructions, SPRAY 2 TIMES IN EACH NOSTRILS EVERY DAY. NEEDED FOR ALLERGY SEASON. WHEN SPRAYING KEEP HEAD DOWN, # 16 Gm, 11 Refills, 02/17/22 13:14:00 EDT, [facility] #[id number], 30, SPRAY 2 TIMES IN EACH NOSTRILS [...] 06/18/22 13:56:00 EDT, Route to Pharmacy Electronically, [facility] #[id number], Partial fill upon patient request if... Start Date: 06/18/22 Status: Ordered levothyroxine 0.05 mg oral tablet 1 tablet, By Mouth, Daily, # 30 tablet, 11 Refills, Maintenance, 09/30/22 12:56:00 EST, [facility] #[id number], 163, cm, 09/30/22 11:48:00 EST, Height, 92.8, kg, 09/24/22 22:19:00 EST, Dry Weight Start Date: 09/30/22 Status: Ordered lisinopril 40 mg oral tablet 1 tablet = 40 mg, By Mouth, 2 times a day, increase dose discontinue HCTZ 12.5mg, # 60 tablet, 11 Refills, Maintenance, 09/30/22 12:54:00 EST, Tablet, [facility] #[id number], 163, cm, 09/30/22 11:48:00 EST, Height, 92.8, kg, 09/24/22 22:19:00... Start Date: 09/30/22 Stop Date: 09/25/23 Status: Ordered Matzim LA 360 mg/24 hours oral tablet, extended release 1 tablet, By Mouth, Daily, # 90 tablet, 3 Refills, 02/17/22 13:08:00 EDT, [facility] #[id number], 165, cm, 02/17/22 12:49:00 EDT, Height, 88.9, kg, 02/09/22 15:14:00 EDT, Dry Weight Start Date: 02/17/22 Status: Ordered metFORMIN 500 mg oral tablet, extended release 1 tablet = 500 mg, By Mouth, Daily in AM, discontinue metformin 500mg with meal, # 30 tablet, 11 Refills, Maintenance, 09/30/22 12:51:00 EST, ER Tablet, [facility] #[id number], 163, cm, 09/30/2310:48:00 EST, Height, 92.8, kg, 09/24/22 22:1... Start Date: 09/30/22 Status: Ordered mirtazapine 15 mg oral tablet 0.5 tablet, By Mouth, Daily at bedtime, DECREASED DOSE., # 45 tablet, 1 Refills, Maintenance, 05/12/22 9:17:00 EDT, [facility] #[id number], 165, cm, 02/23/22 14:24:00 EDT, Height, 88.9, kg, 02/09/22 15:14:00 EDT, Dry Weight Start Date: 05/12/22 Status: Ordered montelukast 10 mg oral tablet 1, tablet, By Mouth, Daily at bedtime, SUPPLY., # 90 tablet, Refills 1, Maintenance, 06/18/22 14:04:00 EDT, Route to Pharmacy Electronically, [facility] #[id number], 165, cm, 06/18/22 13:19:00 EDT, Height, 88.9, kg, 02/09/22 15:14:00 EDT, Dry Weight Start Date: 06/18/22 Stop Date: 09/16/22 Status: Ordered Cfb-nip-kzzpm medical-grade oxford diabetic shoes, depth or hightop Kxv-emo-ooeid medical-grade oxford diabetic shoes, depth or hightop, [...] Refills, Maintenance, 12/18/21 15:48:00 EDT, EC Capsule, [facility] #[id number], 165, cm, 10/29/21 12:16:00 EST,... Start Date: 12/18/21 Status: Ordered pravastatin 80 mg oral tablet 1 tablet, By Mouth, Daily, # 90 tablet, 1 Refills, Maintenance, 06/27/22 12:04:00 EDT, [facility] #[id number], 165, cm, 06/18/22 13:19:00 EDT, Height, 88.9, kg, 02/09/22 15:14:00 EDT, Dry Weight Start Date: 06/27/22 Status: Ordered Premarin Vaginal 0.625 mg/gm cream with applicator See Instructions, APPLY 1/2 GRAM IN THE VAGINA EVERY WEDNESDAY AND WEDNESDAY, # 30 Gm, 11 Refills, Maintenance, 05/11/22 14:58:00 EDT, [facility] #62830, 30, APPLY 1/2 GRAM IN THE VAGINA [...] 4, 5, 6, 7 Confirmed 08/09/06 Active *[id number] Bag Making Machine Operator Francis Caity Confirmed Active Varicose vein Confirmed [...] Personnel Name: Haley Gonzalez RN Position: [facility] RN Member Role: Primary Care Nurse Name: Jessica Perrin MD Position: [facility] Primary Care Physician Member Role: PCP Address: Address: [address] [place] [address]- Care Team Related Persons Name: SANDY BOYCE Address: [address] [place] [address] Name: COLT BOYCE Address: home [address] [place] [address]
--- OUTSIDE RECORDS SUMMARY | 2024-07-06 12:08 | XMS_ITS | Continuity of Care Document ---
Author Organization [facility] Address [address] [place] [address]- Care Team Providers Care Parking Meter Attendant Name Role Phone Marychuy MCCLAIN, Jessica Primary Care Physician [facility] Date[facility]): 05[facility]22 - 06/18/22 [facility] [address]- [place] Allergies, Adverse Reactions, Alerts Substance Reaction [...] Vaccine Date Status Refusal Reason SARS-CoV-2 mRNA (eoypsvl-xlcp-kallo) vax 02/17/22 Given influenza virus vaccine, inactivated [...] tablet, 11 Refills, Maintenance, 05/13/22 11:27:00 EDT, [facility] #[id number], Partial fill upon cherelle... Start Date: 05/13/22 Status: Ordered albuterol 0.083% inhalation solution 3 mL = 2.5 mg, Inhalation, Every 6 hours, # 25 each, 2 Refills, Maintenance, 05/13/22 11:31:00 EDT,[facility] #[id number], 165, cm, 05/13/22 10:23:00 EDT, Height, 88.9, kg, 02/09/22 15:14:00 EDT, Dry Weight Start Date: 05/13/22 Stop Date: 08/11/22 Status: Ordered budesonide 0.5 mg/2 mL inhalation suspension 0.5 mg, 2, mL, Neb, 2 times a day, # 120 mL, Refills 5, Tot. Refills 5, Maintenance, 02/11/22 14:27:00 EDT, Suspension, Route to Pharmacy Electronically, [id number], [facility] #[id number], 165, cm, 02/09/22 15:14:00 EDT... Start Date: 02/11/22 Status: Ordered calcium (as citrate)-vitamin D 315 mg-250 intl units oral tablet 2 tablet, By Mouth, 2 times a day, # 360 tablet, 0 Refills, [facility] #[id number], 90, TAKE 2TABLETS BY MOUTH TWICE DAILY, 165, cm, 02/23/22 14:24:00 EDT, Height, 88.9, kg, 02/09/22 15:14:00 EDT, Dry Weight Start Date: 04/01/22 Status: Ordered citalopram 20 mg oral tablet 20 mg, 1, tablet, By Mouth, Daily, # 90 tablet, Refills 3, Tot. Refills 3, Maintenance, 07/12/21 18:12:00 EDT, Route to Pharmacy Electronically, [facility] #[id number], is awared of interaction w nicky, 165, cm, 04/23/21 21:43:00 EDT, He... Start Date: 07/12/21 Status: Ordered Clarinex 5 mg oral tablet 1 tablet = 5 mg, By Mouth, Daily, # 90 tablet, 3 Refills, Maintenance, 04/29/22 12:53:00 EDT, Tablet, [facility] #[id number], 165, cm, 02/23/22 14:24:00 EDT, Height, 88.9, [...] 0 Refills, Soft Stop, 10/22/21 10:11:00 EST, [facility] #[id number], 165, cm, 10/22/21 9:05:00 EST, Height, 89.5, kg, 04/23/2121:43:00 EDT, Dry Weight Start Date: 10/22/21 Status: Ordered fluticasone 50 mcg/inh nasal spray See Instructions, SPRAY 2 TIMES IN EACH NOSTRILS EVERY DAY. NEEDED FOR ALLERGY SEASON. WHEN SPRAYING KEEP HEAD DOWN, # 16 Gm, 11 Refills, 02/17/22 13:14:00 EDT, [facility] #94143, 30, SPRAY 2 TIMES IN EACH NOSTRILS EVERY DAY. NEEDED FO... Start Date: 02/17/22 Status: Ordered formoterol 10 mcg/mL inhalation solution 2 mL = 20 mcg, Inhalation, 2 times a day, using a continuous flow nebulizer, # 60 each, 5 Refills, Maintenance, 02/11/22 14:28:00 EDT, Solution, [facility] #[id number], 165, cm, 02/09/22 15:14:00 EDT, Height, 88.9, [...] 06/18/22 13:56:00 EDT, Route to Pharmacy Electronically, [facility] #[id number], Partial fill upon patient request if... Start Date: 06/18/22 Status: Ordered hydrochlorothiazide 12.5 mg oral tablet 1 tablet = 12.5 mg, By Mouth, Daily, discontinue HCTZ/lisinopril 25mg /20mg, # 30 tablet, 11 Refills, Maintenance, 10/29/21 13:48:00 EST, Tablet, [facility] #01854, 165, cm, 10/29/21 12:16:00 EST, Height, 89.5, kg, 04/23/21 21:43:00 EDT, .. Start Date: 10/29/21 Status: Ordered levothyroxine 0.05 mg oral tablet 1 tablet, By Mouth, Daily, # 90 tablet, 1 Refills, Maintenance, 05/20/22 16:09:00 EDT, [facility] #[id number], 165, cm, 05/20/22 16:02:00 EDT, Height, 88.9, kg, 02/09/22 15:14:00 EDT, Dry Weight Start Date: 05/20/22 Status: Ordered lisinopril 40 mg oral tablet 1 tablet = 40 mg, By Mouth, Daily, discontinue HCTZ/lisinopril 25mg /20mg, # 30 tablet, 11 Refills,Maintenance, 10/29/21 13:47:00 EST, Tablet, [facility] #[id number], Partial fill upon patient request if the prescription is for a schedule II op... Start Date: 10/29/21 Status: Ordered Matzim LA 360 mg/24 hours oral tablet, extended release 1 tablet, By Mouth, Daily, # 90 tablet, 3 Refills, 02/17/22 13:08:00 EDT, [facility] #[id number], 165, cm, 02/17/22 12:49:00 EDT, Height, 88.9, kg, 02/09/22 15:14:00 EDT, Dry Weight Start Date: 02/17/22 Status: Ordered metFORMIN 500 mg oral tablet 1 tablet, By Mouth, 2 times a day, # 180 tablet, 3 Refills, Maintenance, 10/13/21 14:33:00 EST, [facility] #[id number], 165, cm, 04/23/21 21:43:00 EDT, Height, 89.5, kg, 04/23/21 21:43:00 EDT, Dry Weight Start Date: 10/13/21 Status: Ordered mirtazapine 15 mg oral tablet 0.5 tablet, By Mouth, Daily at bedtime, DECREASED DOSE., # 45 tablet, 1 Refills, Maintenance, 05/12/22 9:17:00 EDT, [facility] #[id number], 165, cm, 02/23/22 14:24:00 EDT, Height, 88.9, kg, 02/09/22 15:14:00 EDT, Dry Weight Start Date: 05/12/22 Status: Ordered montelukast 10 mg oral tablet 1, tablet, By Mouth, Daily at bedtime, SUPPLY., # 90 tablet, Refills 1, Maintenance, 06/18/22 14:04:00 EDT, Route to Pharmacy Electronically, [facility] #[id number], 165, cm, 06/18/22 13:19:00 EDT, Height, 88.9, kg, 02/09/22 15:14:00 EDT, Dry Weight Start Date: 06/18/22 Stop Date: 09/16/22 Status: Ordered Wie-cvu-njbzq medical-grade oxford diabetic shoes, depth or hightop Avm-zme-djajb medical-grade oxford diabetic shoes, depth or hightop, [...] Refills, Maintenance, 12/18/21 15:48:00 EDT, EC Capsule, [facility] #[id number], 165, cm, 10/29/21 12:16:00 EST,... Start Date: 12/18/21 Status: Ordered Paxlovid 150 mg-100 mg (150 mg-100 mg Dose) oral tablet See Instructions, Three tablets by mouth BID as per package directions, # 1 pack/packet, 0 Refills,Acute 06/11/23 9:38:00 EDT, 06/10/22 9:37:00 EDT, [facility] #[id number], Partial fill upon patient request if the prescription is for a schedule... Start Date: 06/10/22 Stop Date: 06/11/23 Status: Ordered pravastatin 80 mg oral tablet 1 tablet, By Mouth, Daily, # 90 tablet, 1 Refills, Maintenance, 01/05/22 10:39:00 EDT, [facility] #[id number], 165, cm, 10/29/21 12:16:00 EST, Height, 89.5, kg, 04/23/21 21:43:00 EDT, Dry Weight Start Date: 01/05/22 Status: Ordered Premarin Vaginal 0.625 mg/gm cream with applicator See Instructions, APPLY 1/2 GRAM IN THE VAGINA EVERY WEDNESDAY AND WEDNESDAY, # 30 Gm, 11 Refills, Maintenance, 05/11/22 14:58:00 EDT, [facility] #02294, 30, APPLY 1/2 GRAM IN THE VAGINA [...] Gm, 5 Refills, Maintenance, 05/13/22 11:27:00 EDT, [email or web address] #[id number], Partial fill upon patient request if the [...] 4, 5, 6, 7 Confirmed 08/09/06 Active [id number] Lift Team Technician Yee Ceballos Confirmed Active Varicose vein [...] Personnel Name: Marychuy MCCLAIN, Jessica Address: Address: [address] [place] [address]
--- OUTSIDE RECORDS SUMMARY | 2024-07-06 12:08 | XMS_ITS | Continuity of Care Document ---
Author Organization [facility] Address [address] [place] [address]- Care Team Providers Care Water Meter Mechanic Name Role Phone Marychuy MCCLAIN, Jessica Primary Care Physician Encounter [facility] Date(s): 03/08/23 - 04/07/23 [facility]/[place] [address]- [place] Allergies, Adverse Reactions, Alerts Substance Reaction [...] and Recorded Vaccine Date Status Refusal Reason [id number] 12y+ bivalent booster vax 03/24/23 Given [id number] 12y+ bivalent booster vax 07/28/22 Recorded influenza [...] inactivated 5 07/29/06 Gi javon SARS-CoV-2 mRNA ([id number]-yxjhq) vax 02/17/22 Given SARS-CoV-2 (COVID-19) mRNA BNT-162b2 [...] Given 1Result Comment: [07/25/2015] ORDERED BY DR. MERNIO 2Admin Note: VIS 04/07/11 GIVEN 3Admin Note: [...] tablet, 11 Refills, Maintenance, 03/24/23 10:28:00 EDT, [facility] #[id number], 160, cm, 03/24/23 10:19:00 EDT, Height, 89.54, kg, 0... Start Date: 03/24/23 Status: Ordered albuterol 0.083% inhalation solution 3 mL = 2.5 mg, Inhalation, Every 6 hours, # 25 each, 5 Refills, Maintenance, 08/12/22 15:02:00 EST,[facility] #[id number], 165, cm, 06/18/22 13:19:00 EDT, Height, 88.9, [...] 16:58:00 EST, Suspension, Route to Pharmacy Electronically, [id number], [facility] #[id number], 163, cm, 10/16/22 16:21:00 E... Start Date: 10/16/22 Status: Ordered calcium (as citrate)-vitamin D 315 mg-250 intl units oral tablet 2 tablet, By Mouth, 2 times a day, # 360 tablet, 3 Refills, Maintenance, 03/24/23 10:33:00 EDT, [facility] #[id number], 2 tablet By Mouth 2 times a day,x90 days, 160, cm, 03/24/23 10:19:00 EDT, Height, 89.54, kg, 02/09/23 16:45:00 EDT, Dry Weight Start Date: 03/24/23 Stop Date: 03/18/24 Status: Ordered ciclopirox 8% topical solution 1 application, Topically, Daily, as directed to affected area toenails, # 6.6 mL, 11 Refills, Maintenance, 03/24/23 10:42:00 EDT, Solution, [facility] #[id number], ., 1 application Topically Daily,Instr:as directed; to affected area toenails, 16... Start Date: 03/24/23 Status: Ordered citalopram 20 mg oral tablet 20 mg, 1, tablet, By Mouth, Daily, # 90 tablet, Refills 3, Tot. Refills 3, Maintenance, 03/24/23 10:23:00 EDT, Route to Pharmacy Electronically, [facility] #[id number], is awared of interaction w orsaseshelli, 160, cm, 03/24/23 10:19:00 EDT, He... Start Date: 03/24/23 Status: Ordered Clarinex 5 mg oral tablet 1 tablet = 5 mg, By Mouth, Daily, # 90 tablet, 3 Refills, Maintenance, 03/24/23 10:23:00 EDT, Tablet, [facility] #[id number], 160, cm, 03/24/23 10:19:00 EDT, Height, 89.54, [...] tablet, 3 Refills, Maintenance, 03/24/23 10:04:00 EDT, [facility] #[id number], 160, cm, 03/24/23 9:26:00 EDT, Height, 89.54, kg, 02/09/23 16:45:00 EDT, Dry Weight Start Date: 03/24/23 Status: Ordered EPINEPHrine 0.3 mg injectable solution = 0.3 mg, Intramuscular, Once, PRN Anaphylactic Reaction, # 1 each, 0 Refills, Soft Stop, 10/22/21 10:11:00 EST, [facility] #[id number], 165, cm, 10/22/21 9:05:00 EST, Height, 89.5, kg, 04/23/2121:43:00 EDT, Dry Weight Start Date: 10/22/21 Status: Ordered fluticasone 50 mcg/inh nasal spray 2 sprays, Nares, Both, Daily, Use every day during allergy season. While using spray keep head down., # 3 each, 3 Refills, Maintenance, 03/24/23 10:28:00 EDT, [facility] #[id number], ., 2 spraysNares, Both Daily,x90 days,Instr:Use every day duri... Start Date: 03/24/23 Stop Date: 03/18/24 Status: Ordered formoterol 10 mcg/mL inhalation solution 2 mL = 20 mcg, Inhalation, 2 times a day, using a continuous flow nebulizer, # 120 mL, 11 Refills, Maintenance, 10/16/22 16:58:00 EST, Solution, [facility] #[id number], Partial fill upon patientrequest if the prescription [...] tablet, 3 Refills, Maintenance, 03/24/23 10:31:00 EDT, [facility] #[id number], 160, cm, 03/24/23 10:19:00 EDT, Height, 89.54, kg, 02/09/23 16:45:00 EDT, Dry Weight Start Date: 03/24/23 Stop Date: 03/18/24 Status: Ordered lisinopril 40 mg oral tablet 1 tablet = 40 mg, By Mouth, Daily in AM, 11 AM Decreased dose, # 90 tablet, 3 Refills, Maintenance,03/24/23 10:12:00 EDT, Tablet, [facility] #[id number], 160, cm, 03/24/23 9:26:00 EDT, Height, 89.54, kg, 02/09/23 16:45:00 EDT, Dry Weight Start Date: 03/24/23 Stop Date: 03/18/24 Status: Ordered Matzim LA 180 mg/24 hours oral tablet, extended release 1 tablet = 180 mg, By Mouth, Daily in AM, Discontinue diltiazem 360 mg Takes at 11 AM, # 90 tablet,3 Refills, Maintenance, 03/24/23 9:58:00 EDT, ER Tablet, [facility] #[id number], 160, cm, 03/24/23 9:26:00 EDT, Height, 89.54, kg, 02/09/23 16:45... Start Date: 03/24/23 Stop Date: 03/18/24 Status: Ordered metFORMIN 500 mg oral tablet, extended release 1 tablet = 500 mg, By Mouth, 2 times a day, with meal Increase dose, # 180 tablet, 3 Refills, Maintenance, 03/24/23 10:19:00 EDT, ER Tablet, [facility] #[id number], 160, cm, 03/24/23 10:19:00 EDT, Height, 89.54, kg, 02/09/23 16:45:00 EDT, Dry W... Start Date: 03/24/23 Stop Date: 03/18/24 Status: Ordered mirtazapine 15 mg oral tablet 0.5 tablet, By Mouth, Daily at bedtime, # 45 tablet, 3 Refills, Maintenance, 03/24/23 10:22:00 EDT,[facility] #[id number], 160, cm, 03/24/23 10:19:00 EDT, Height, 89.54, kg, 02/09/23 16:45:00 EDT, Dry Weight Start Date: 03/24/23 Stop Date: 03/18/24 Status: Ordered montelukast 10 mg oral tablet 1, tablet, By Mouth, Daily at bedtime, SUPPLY., # 90 tablet, Refills 3, Tot. Refills 3, Maintenance, 06/05/23 14:50:00 EDT, Route to Pharmacy Electronically, [facility] #[id number], 160, cm, 03/24/23 10:19:00 EDT, Height, 89.54, kg, 02/09/23 16:4... Start Date: 06/05/23 Status: Ordered Qqu-hmm-wbnrz medical-grade oxford diabetic shoes, depth or hightop Evy-hav-hfafc medical-grade oxford diabetic shoes, depth or hightop, [...] capsule, 3 Refills, Maintenance, 03/24/23 10:28:00 EDT, [facility] #[id number], 160, cm, 03/24/23 10:19:00 EDT, Height, 89.54, kg, 0... Start Date: 03/24/23 Stop Date: 03/18/24 Status: Ordered pravastatin 80 mg oral tablet 1 tablet, By Mouth, Daily, # 90 tablet, 3 Refills, Maintenance, 03/24/23 10:32:00 EDT, [facility] #[id number], 160, cm, 03/24/23 10:19:00 EDT, Height, 89.54, kg, 02/09/23 16:45:00 EDT, Dry Weight Start Date: 03/24/23 Stop Date: 03/18/24 Status: Ordered Premarin Vaginal 0.625 mg/gm cream with applicator See Instructions, APPLY 1/2 GRAM IN THE VAGINA EVERY WEDNESDAY AND WEDNESDAY, # 30 Gm, 11 Refills, Maintenance, 03/24/23 10:23:00 EDT, [facility] #[id number], 30, APPLY 1/2 GRAM IN THE VAGINA EVERY WEDNESDAY AND WEDNESDAY, 160, cm, 03/24/23 10:19:00 EDT,... Start Date: 03/24/23 Status: Ordered ProAir HFA 90 mcg/inh inhalation aerosol with adapter 2, puffs, Inhalation, 4 times a day, PRN, Fill when patient request it, # 1 each, Refills 5, Tot. Refills 5, Maintenance, 03/24/23 10:30:00 EDT, Route to Pharmacy Electronically, [id number], [facility] #[id number], 160,... Start Date: 03/24/23 Status: Ordered Shoes [...] in AM, at 11 AM Given by tenderizer tender, Dr. Indio Mason, # 30 tablet, [...] day, PRN itching Apply to lower extremities Armenian, # 30 Gm, 2Refills, Maintenance, 03/24/23 10:34:00 EDT, [facility] #[id number], 1 application Topically 3times a day,Instr:PRN itching [...] 4, 5, 6, 7 Confirmed 08/09/06 Active *[phone] Bleach Chlorinator Francis Malinarnacion Confirmed Active Varicose vein Confirmed [...] Care Nurse Name: Marychuy MCCLAIN, Jessica Position: [facility] Physician - Primary Care Member Role: PCP Address: Address: [address] [place] [address]- Care Team Related Persons Name: CARLISANDY Address: home [address] [place] [address] Name: COLT BOYCE Address: home [address] [place] [address]
--- OUTSIDE RECORDS SUMMARY | 2024-07-06 12:08 | XMS_ITS | Continuity of Care Document ---
Author Organization [facility] Address [address] [place] [id number]- Care Team Providers Care Cyber Systems Operations Specialist Name Role Phone Marychuy MCCLAIN, Jessica Primary Care Physician Encounter [facility] Date(s): 01/14/23 - 02/17/23 [facility] [address] [place] [address] Attending Physician: Shannan Barroso MD Admitting Physician: Shannan Barroso MD Referring Physician: Shannan Barroso MD Allergies, Adverse Reactions, Alerts Substance Reaction [...] virus vaccine, inactivated 5 07/29/06 Gi javon [id number] 12y+ bivalent booster vax 07/28/22 Recorded SARS-CoV-2 mRNA (vxrdnhz-obdi-phned) vax 02/17/22 Given SARS-CoV-2 (COVID-19) mRNA BNT-162b2 [...] 100 tablet, 11 Refills, Maintenance, 05/13/22 11:27:00 EDT [facility] #[id number], Partial fill upon cherelle... Start Date: 05/13/22 Status: Ordered albuterol 0.083% inhalation solution 3 mL = 2.5 mg, Inhalation, Every 6 hours, # 25 each, 5 Refills, Maintenance, 08/12/22 15:02:00 EST,[facility] #[id number], 165, cm, 06/18/22 13:19:00 EDT, Height, 88.9, kg, 02/09/22 15:14:00 EDT, Dry Weight Start Date: 08/12/22 Stop Date: 02/08/23 Status: Ordered apixaban 5 mg oral tablet 1 tablet = 5 mg, By Mouth, 2 times a day, # 180 tablet, 0 Refills, Maintenance, 12/16/22 16:34:00 EDT, Tablet, [facility] #[id number], Partial fill upon patient request if the prescription is for a schedule II opioid drug., 163, cm, 12/16/22 7:58... Start Date: 12/16/22 Stop Date: 03/16/23 Status: Ordered budesonide 0.5 mg/2 mL inhalation suspension 0.5 mg, 2, mL, Neb, 2 times a day, # 120 mL, Refills 11, Tot. Refills 11, Maintenance, 10/16/22 16:58:00 EST, Suspension, Route to Pharmacy Electronically, [id number], [facility] #[id number], 163, cm, 10/16/22 16:21:00 E... Start Date: 10/16/22 Status: Ordered budesonide 0.5 mg/2 mL inhalation suspension 0.5 mg, 2, mL, Neb, 2 times a day, # 120 mL, Refills 11, Tot. Refills 11, Maintenance, 08/13/22 15:24:00 EST, Suspension, Route to Pharmacy Electronically, [id number], [facility] #[id number], 165, cm, 06/18/22 13:19:00 E... Start Date: 08/13/22 Status: Ordered calcium (as citrate)-vitamin D 315 mg-250 intl units oral tablet 2 tablet, By Mouth, 2 times a day, # 360 tablet, 0 Refills, Maintenance, 12/07/22 14:46:00 EDT, [facility] #[id number], 90, 2 tablet By Mouth 2 times a day, 163, cm, 11/05/22 16:59:00 EST, Height, 90, kg, 11/05/22 16:59:00 EST, Dry Weight Start Date: 12/07/22 Status: Ordered citalopram 20 mg oral tablet 20 mg, 1, tablet, By Mouth, Daily, # 90 tablet, Refills 3, Tot. Refills 3, Maintenance, 07/08/22 14:31:00 EDT, Route to Pharmacy Electronically, [facility] #[id number], is awared of interaction w nicky, 165, cm, 06/18/22 13:19:00 EDT, He... Start Date: 07/08/22 Status: Ordered Clarinex 5 mg oral tablet 1 tablet = 5 mg, By Mouth, Daily, # 90 tablet, 3 Refills, Maintenance, 04/29/22 12:53:00 EDT, Tablet, [facility] #[id number], 165, cm, 02/23/22 14:24:00 EDT, Height, 88.9, [...] 0 Refills, Soft Stop, 10/22/21 10:11:00 EST, [facility] #[id number], 165, cm, 10/22/21 9:05:00 EST, Height, 89.5, kg, 04/23/2121:43:00 EDT, Dry Weight Start Date: 10/22/21 Status: Ordered fluticasone 50 mcg/inh nasal spray See Instructions, SPRAY 2 TIMES IN EACH NOSTRILS EVERY DAY. NEEDED FOR ALLERGY SEASON. WHEN SPRAYING KEEP HEAD DOWN, # 16 Gm, 11 Refills, 02/17/22 13:14:00 EDT, [facility] #[id number], 30, SPRAY 2 TIMES IN EACH NOSTRILS EVERY DAY. NEEDED FO... Start Date: 02/17/22 Status: Ordered formoterol 10 mcg/mL inhalation solution 2 mL = 20 mcg, Inhalation, 2 times a day, using a continuous flow nebulizer, # 120 mL, 11 Refills, Maintenance, 10/16/22 16:58:00 EST, Solution, [facility] #[id number], Partial fill upon patientrequest if the prescription [...] 11/05/22 17:53:00 EST, Route to Pharmacy Electronically, [facility] #[id number], Partial fill upon patient request if the prescription is for a schedule II opi... Start Date: 11/05/22 Stop Date: 11/10/22 Status: Ordered gabapentin 300 mg oral capsule 300 mg, 1, capsule, By Mouth, 2 times a day, PRN, # 20 capsule, Refills 0, Tot. Refills 0, Maintenance, Pain , Severe, 11/05/22 17:53:00 EST, Route to Pharmacy Electronically, [facility] #[id number], Partial fill upon patient request if the presc... Start Date: 11/05/22 Stop Date: 11/15/22 Status: Ordered hydrALAZINE 25 mg oral tablet 25 mg, 1, tablet, By Mouth, 3 times a day, discontinue hydralazine 10mg, # 90 tablet, Refills 11, Tot. Refills 11, Maintenance, 06/18/22 13:56:00 EDT, Route to Pharmacy Electronically, [facility] #[id number], Partial fill upon patient request if... Start [...] tablet, 11 Refills, Maintenance, 09/30/22 12:56:00 EST, [facility] #[id number], 163, cm, 09/30/22 11:48:00 EST, Height, 92.8, kg, 09/24/22 22:19:00 EST, Dry Weight Start Date: 09/30/22 Status: Ordered lisinopril 40 mg oral tablet 1 tablet = 40 mg, By Mouth, 2 times a day, increase dose discontinue HCTZ 12.5mg, # 60 tablet, 11 Refills, Maintenance, 09/30/22 12:54:00 EST, Tablet, [facility] #[id number], 163, cm, 09/30/22 11:48:00 EST, Height, 92.8, kg, 09/24/22 22:19:00... Start Date: 09/30/22 Stop Date: 09/25/23 Status: Ordered Matzim LA 360 mg/24 hours oral tablet, extended release 1 tablet, By Mouth, Daily, # 90 tablet, 3 Refills, 02/17/22 13:08:00 EDT, [facility] #[id number], 165, cm, 02/17/22 12:49:00 EDT, Height, 88.9, kg, 02/09/22 15:14:00 EDT, Dry Weight Start Date: 02/17/22 Status: Ordered metFORMIN 500 mg oral tablet, extended release 1 tablet = 500 mg, By Mouth, Daily in AM, discontinue metformin 500mg with meal, # 30 tablet, 11 Refills, Maintenance, 09/30/22 12:51:00 EST, ER Tablet, [facility] #[id number], 163, cm, 09/30/2310:48:00 EST, Height, 92.8, kg, 09/24/22 22:1... Start Date: 09/30/22 Status: Ordered mirtazapine 15 mg oral tablet 0.5 tablet, By Mouth, Daily at bedtime, DECREASED DOSE, # 45 tablet, 1 Refills, Maintenance, 10/20/22 20:06:00 EST, [facility] #[id number], 163, cm, 10/16/22 16:21:00 EST, Height, 92.8, kg, 09/24/22 22:19:00 EST, Dry Weight Start Date: 10/20/22 Status: Ordered montelukast 10 mg oral tablet 1, tablet, By Mouth, Daily at bedtime, SUPPLY., # 90 tablet, Refills 1, Tot. Refills 1, Maintenance, 12/07/22 14:50:00 EDT, Route to Pharmacy Electronically, [facility] #[id number], 163, cm, 11/05/22 16:59:00 EST, Height, 90, kg, 11/05/22 16:59:0... Start Date: 12/07/22 Stop Date: 06/05/23 Status: Ordered Jdd-ugi-xgxrj medical-grade oxford diabetic shoes, depth or hightop Nzo-exq-wdsqd medical-grade oxford diabetic shoes, depth or hightop, [...] Refills, Maintenance, 12/07/22 14:49:00 EDT, EC Capsule, [facility] #[id number], 163, cm, 11/05/22 16:59:00 EST,... Start Date: 12/07/22 Status: Ordered pravastatin 80 mg oral tablet 1 tablet, By Mouth, Daily, # 90 tablet, 1 Refills, Maintenance, 12/07/22 14:47:00 EDT, [facility] #[id number], 163, cm, 11/05/22 16:59:00 EST, Height, 90, kg, 11/05/22 16:59:00 EST, Dry Weight Start Date: 12/07/22 Status: Ordered Premarin Vaginal 0.625 mg/gm cream with applicator See Instructions, APPLY 1/2 GRAM IN THE VAGINA EVERY WEDNESDAY AND WEDNESDAY, # 30 Gm, 11 Refills, Maintenance, 05/11/22 14:58:00 EDT, [facility] #[id number], 30, APPLY 1/2 GRAM IN THE VAGINA EVERY WEDNESDAY AND WEDNESDAY, 165, cm, 02/23/22 14:24:00 EDT,... Start Date: 05/11/22 Status: Ordered ProAir HFA 90 mcg/inh inhalation aerosol with adapter 2, puffs, Inhalation, 4 times a day, PRN, # 1 each, Refills 11, Tot. Refills 11, Maintenance, 10/16/22 17:00:00 EST, Route to Pharmacy Electronically, [id number], [facility] #[id number], 163, cm, 10/16/22 16:21:00 EST, H... Start [...] day, PRN itching Apply to lower extremities Greenlandic, # 30 Gm, 0Refills, Maintenance, 01/07/23 14:27:00 EDT, [facility], Partial fill upon patient request if the [...] 4, 5, 6, 7 Confirmed 08/09/06 Active *[id number] Head Of Stock Francis Caity Confirmed Active Varicose vein Confirmed [...] (Left) 1.2 Normal 4normal DEXA 02/08/15 5DEXA 4/9/13 osteopenia AP spine - ,1.8 normal total [...] Team Personnel Name: Carlos RN, Haley Position: [facility] RN Member Role: Primary Care Nurse Name: Marychuy MCCLAIN, Jessica Position: [facility] Physician - Primary Care Member Role: PCP Address: Address: [address] [place] [address]- Care Team Related Persons Name: SANDY BOYCE Address: home [address] [place] [address] Name: COLT BOYCE Address: home [address] [place] [address]
--- OUTSIDE RECORDS SUMMARY | 2024-07-06 12:08 | XMS_ITS | Continuity of Care Document ---
Author Organization [facility] Address [address] [place] [address]- Care Team Providers Care Heavy Duty Truck Mechanic Name Role Phone Jessica Perrin MD Primary Care Physician Encounter [facility] Date(s): 04/23/21 - 04/24/[address] [address]- Encounter Diagnosis Left leg pain(Final) - 04/24/21 Discharge Disposition: A-D/C Home Attending Physician: Cm Riggs MD Admitting Physician: Cm Riggs MD Referring Physician: Not on Staff, Referring [...] 03/10/21 15:25:00 EDT, Route to Pharmacy Electronically, [facility] #[id number], 165, cm, 12/25/20 10:00:00 EDT, Height, 88, kg, 11/03/19 18:19:00... Start Date: 03/10/21 Status: Ordered calcium (as citrate)-vitamin D 315 mg-250 intl units oral tablet 2 tablet, By Mouth, 2 times a day, Tej, # 360 tablet, 3 Refills, Maintenance, 03/26/21 13:03:00 EDT, Tablet, [facility] #[id number], 2 tablet By Mouth 2 times a day,x90 days,Instr:Tej, 165, cm, 03/26/21 11:57:00 EDT, Height, 88, kg, 11/03/19 18... Start Date: 03/26/21 Stop Date: 03/21/22 Status: Ordered celecoxib 100 mg oral capsule 1 capsule = 100 mg, By Mouth, 2 times a day, PRN knee pain, # 60 capsule, 5 Refills, Maintenance, 03/26/21 13:08:00 EDT, Capsule, [facility] #[id number], 165, cm, 03/26/21 11:57:00 EDT, Height, 88, kg, 11/03/19 18:19:00 EST, Dry Weight Start Date: 03/26/21 Status: Ordered citalopram 20 mg oral tablet 20 mg, 1, tablet, By Mouth, Daily, # 90 tablet, Refills 3, Tot. Refills 3, Maintenance, 07/01/20 17:44:00 EDT, Route to Pharmacy Electronically, [facility] #[id number], is awared of interaction w priloseshelli, 165, cm, 11/03/19 18:19:00 EST, He... Start Date: 07/01/20 Status: Ordered Clarinex 5 mg oral tablet 1 tablet = 5 mg, By Mouth, Daily, Discontinue loratadine, # 30 tablet, 11 Refills, Maintenance, 03/26/21 13:02:00 EDT, Tablet, [facility] #[id number], 165, cm, 03/26/21 11:57:00 EDT, Height, 88,kg, 11/03/19 18:19:00 EST, Dry Weight Start Date: 03/26/21 Status: Ordered Colace sodium 100 mg oral capsule 100 mg, 1, capsule, By Mouth, 2 times a day, PRN, with plenty of water, # 180 capsule, Refills 3, Tot. Refills 3, Maintenance, as needed for constipation, 03/26/21 13:05:00 EDT, Route to Pharmacy Electronically, [facility] #[id number], Dispense o... Start Date: 03/26/21 Status: Ordered dilTIAZem 360 mg/24 hours oral tablet, extended release 1 tablet = 360 mg, By Mouth, Daily, # 90 tablet, 3 Refills, Maintenance, 09/05/20 9:01:00 EST, [facility] #[id number], 165, cm, 11/03/19 18:19:00 EST, Height, 88, kg, 11/03/19 18:19:00 EST, Dry Weight Start Date: 09/05/20 Status: Ordered Dulera 200 mcg-5 mcg/inh inhalation aerosol 2 puffs, Inhalation, 2 times a day, # 13 Gm, 11 Refills, Maintenance, 08/10/20 16:21:00 EST, Aerosol, [facility] #04093, 2 puffs Inhalation 2 times a day, 165, cm, 11/03/19 18:19:00 EST, Height, 88, kg, 11/03/19 18:19:00 EST, Dry Weight Start Date: 08/10/20 Status: Ordered EPINEPHrine 0.3 mg injectable solution = 0.3 mg, Intramuscular, Once, PRN Anaphylactic Reaction, # 1 each, 0 Refills, Soft Stop, 06/26/20 8:38:00 EDT, [facility] #26110, 165, cm, 11/03/19 18:19:00 EST, Height, 88, kg, 11/03/19 18:19:00 EST, Dry Weight Start Date: 06/26/20 Status: Ordered fluticasone 50 mcg/inh nasal spray 2 sprays, Nares, Both, Daily, Use every day during allergy season. While using spray keep head down. 30 days not 90 days dispense when patient requested by patient, # 16 Gm, 5 Refills, Maintenance, 12/30/20 15:00:00 EDT, [facility] #05... Start Date: 12/30/20 Status: Ordered hydrALAZINE 10 mg oral tablet 10 mg, 1, tablet, By Mouth, 2 times a day, decrease dose, # 180 tablet, Refills 3, Tot. Refills 3, Maintenance, 06/26/20 8:44:00 EDT, Route to Pharmacy Electronically, [facility] #[id number], 165, cm, 11/03/19 18:19:00 EST, Height, 88, kg, 11/03/... Start Date: 06/26/20 Stop Date: 06/21/21 Status: Ordered hydrochlorothiazide-lisinopril 25 mg-20 mg oral tablet 1 tablet, By Mouth, Daily, # 90 tablet, 3 Refills, Maintenance, 12/25/20 11:11:00 EDT, Tablet, [facility] #27533, 90 days, 1 tablet By Mouth Daily, [...] tablet, 1 Refills, Maintenance, 03/04/21 10:16:00 EDT, [facility] #69575, 165, cm, 12/25/20 10:00:00 EDT, Height, 88, kg, 11/03/19 18:19:00 EST, Dry Weight Start Date: 03/04/21 Status: Ordered metFORMIN 500 mg oral tablet 1 tablet, By Mouth, 2 times a day, # 180 tablet, 3 Refills, Maintenance, 09/16/20 17:27:00 EST, [facility] #40359, 165, cm, 11/03/19 18:19:00 EST, Height, 88, kg, 11/03/19 18:19:00 EST, DryWeight Start Date: 09/16/20 Status: Ordered nystatin topical 508717 u/gm powder 1 application, Topically, 2 times a day, # 60 Gm, 1 Refills, Maintenance, 03/26/21 13:25:00 EDT, Powder, [facility] #63484, Partial fill upon patient request if the prescription is for a schedule II opioid drug., 1 application Topically 2 ti... Start Date: 03/26/21 Status: Ordered Maq-shf-zdgol medical-grade oxford diabetic shoes, depth or hightop Hem-cva-sapxu medical-grade oxford diabetic shoes, depth or hightop, [...] 3 Refills, Maintenance, 12/25/20 11:15:00 EDT, Tablet, [facility] #26158, 165, cm, 12/25/20 10:00:00 EDT, Height, 88, kg, 11/03/19 18:19:00 EST, Dry Weight Start Date: 12/25/20 Status: Ordered Premarin Vaginal 0.625 mg/gm cream with applicator = 0.5 Gm, Vaginally, Every Wednesday and , # 42.5 Gm, 11 Refills, Maintenance, 03/26/21 13:01:00 EDT, [facility] #[id number], 0.5 Gm Vaginally Every Wednesday and , 165, cm, 03/26/21 11:57:00 EDT, Height, 88, kg, 11/03/19 18:19:00 EST,... Start Date: 03/26/21 Status: Ordered PriLOSEC OTC 20 mg oral delayed release tablet 1 tablet = 20 mg, By Mouth, Daily, Take 30 mins before breakfast, # 90 tablet, 2 Refills, Maintenance, 04/08/21 10:07:00 EDT, [facility] #[id number], MD is awared of interaction with citalopram;Duplicate rx; original sent 12/25/20. Remaining r... Start Date: 04/08/21 Status: Ordered Remeron 15 mg oral tablet 0.5 tablet = 7.5 mg, By Mouth, Daily at bedtime, Decreased dose, # 45 tablet, 3 Refills, Maintenance, 03/26/21 13:13:00 EDT, Tablet, [facility] #63277, 165, cm, 03/26/21 11:57:00 EDT, Height, 88, [...] 12/25/20 11:14:00 EDT, Route to Pharmacy Electronically, [facility] #[id number], 165, cm, 12/25/20 10:00:00 EDT, Height, 88, [...] Gm, 5 Refills, Maintenance, 03/26/21 13:06:00 EDT, [facility] #[id number]... Start Date: 03/26/21 Status: [...] 9, 10, 11, 12, 13 08/09/06 Active *[id number] Care Partn er Dolores Cabrera(Confirmed) Active Prurigo nodularis(Confirmed) 08/17/08 Active Renal insufficiency(Confirmed) Active Non-insulin dependent type 2 diabetes mellitus(Confirmed) 01/24/09 Active Varicose vein(Confirmed) Active Vitamin D deficiency(Confirmed) 07/26/08 Active 1CKD Stage III. GFR 58 2left breast confirmed by breast biopsy on 01/14/[address] Juarez Hinojosa 3EGD correct date 08/23/01 4Neg EGD 08/25/[address] Js Sullivan from [facility] 51ry to urinary incontinence [...] to oldest [Reference Range]: 1 2 Height 165 cm (04/23/21 9:43 PM) 165 cm (04/23/21 9:41 PM) Weight 89.5 kg (04/23/21 9:43 PM) Oxygen Saturation [94-100 %] 97 % (04/23/21 11:19 PM) 97 % (04/23/21 9:41 PM) Pulse Rate [55-90 bpm] 89 bpm (04/23/21 11:19 PM) 83 bpm (04/23/21 9:41 PM) Blood Pressure [90-138/55-84 mm Hg] 167/ 81mm Hg *H* (04/23/21 11:19 PM) 185/87mm Hg *H* (04/23/21 9:41 PM) Respiratory Rate [16-30 br/min] 16 br/mi n (04/23/21 11:19 PM) 16 br/min (04/23/21 9:41 PM) Temperature [96.8-100.4 DegF] 98.1 DegF (04/23/21 9:41 PM) Mode of Delivery (Oxygen) Room air (04/23/21 9:41 PM) Blood pressure sites Arm, left (04/23/21 9:41 PM) Temperature Route Oral (04/23/21 9:41 PM) Dry Weight 89.5 kg (04/23/21 9:43 PM) 89.5 kg (04/23/21 9:41 PM) Dry Weight Obtained Via Patient/family s tated (04/23/21 9:41 PM) Social History Social History Type Response Smoking Status Never (less than 100 in lifetime) entered on: 03/26/21 Sex
--- OUTSIDE RECORDS SUMMARY | 2024-07-06 12:08 | XMS_ITS | Continuity of Care Document ---
Author Organization [facility] Address [address] [place] [address]- Care Team Providers Care Business Continuity Management Director Name Role Phone Marychuy MCCLAIN, Jessica Primary Care Physician Encounter [facility] Date(s): 08/20/20 - 09/19/20 [facility]/[address] [address]- Allergies, Adverse Reactions, Alerts Substance Reaction Severity [...] Refills, Maintenance, 07/22/20 10:02:00 EST, ER Tablet, [facility] #[id number], 165, cm, 11/03/19 18:19:00 ES... Start Date: [...] 02/02/20 16:28:00 EDT, Route to Pharmacy Electronically, [facility] #[id number], 165, cm, 11/03/19 18:19:00 EST, Height, 88, kg, 11/03/19 18:19:00... Start Date: 02/02/20 Status: Ordered calcium (as citrate)-vitamin D 315 mg-250 intl units oral tablet 2 tablet, By Mouth, 2 times a day, Tej, # 360 tablet, 3 Refills, Maintenance, 02/02/20 16:28:00 EDT, Tablet, [facility] #[id number], 2 tablet By Mouth 2 times a day,x90 days,Instr:Tej, 165, cm, 11/03/19 18:19:00 EST, Height, 88, kg, 11/03/19 18... Start Date: 02/02/20 Stop Date: 01/27/21 Status: Ordered celecoxib 100 mg oral capsule 1 capsule = 100 mg, By Mouth, 2 times a day, PRN knee pain, # 60 capsule, 5 Refills, Maintenance, 06/26/20 8:22:00 EDT, Capsule, [facility] #01957, 165, cm, 11/03/19 18:19:00 EST, Height, 88, kg, 11/03/19 18:19:00 EST, Dry Weight Start Date: 06/26/20 Status: Ordered citalopram 20 mg oral tablet 20 mg, 1, tablet, By Mouth, Daily, # 90 tablet, Refills 3, Tot. Refills 3, Maintenance, 07/01/20 17:44:00 EDT, Route to Pharmacy Electronically, [facility] #[id number], is awared of interaction w rosaseshelli, 165, cm, 11/03/19 18:19:00 EST, He... Start Date: 07/01/20 Status: Ordered Colace sodium 100 mg oral capsule 100 mg, 1, capsule, By Mouth, 2 times a day, PRN, with plenty of water, # 180 capsule, Refills 3, Tot. Refills 3, Maintenance, as needed for constipation, 08/30/19 9:25:00 EST, Route to Pharmacy Electronically, [facility] #[id number], 162.5, cm,... Start Date: 08/30/19 Status: Ordered dilTIAZem 360 mg/24 hours oral tablet, extended release 1 tablet = 360 mg, By Mouth, Daily, # 90 tablet, 3 Refills, Maintenance, 09/05/20 9:01:00 EST, [facility] #[id number], 165, cm, 11/03/19 18:19:00 EST, Height, 88, kg, 11/03/19 18:19:00 EST, Dry Weight Start Date: 09/05/20 Status: Ordered Dulera 200 mcg-5 mcg/inh inhalation aerosol 2 puffs, Inhalation, 2 times a day, # 13 Gm, 11 Refills, Maintenance, 08/10/20 16:21:00 EST, Aerosol, [facility] #[id number], 2 puffs Inhalation 2 times a day, 165, cm, 11/03/19 18:19:00 EST, Height, 88, kg, 11/03/19 18:19:00 EST, Dry Weight Start Date: 08/10/20 Status: Ordered EPINEPHrine 0.3 mg injectable solution = 0.3 mg, Intramuscular, Once, PRN Anaphylactic Reaction, # 1 each, 0 Refills, Soft Stop, 06/26/20 8:38:00 EDT, [facility] #45535, 165, cm, 11/03/19 18:19:00 EST, Height, 88, kg, 11/03/19 18:19:00 EST, Dry Weight Start Date: 06/26/20 Status: Ordered fluticasone 50 mcg/inh nasal spray 2 sprays, Nares, Both, Daily, Use every day during allergy season. While using spray keep head down. 30 days not 90 days dispense when patient requested by patient, # 16 Gm, 5 Refills, Maintenance, 06/26/20 8:35:00 EDT, [facility] #054... Start Date: 06/26/20 Status: Ordered hydrALAZINE 10 mg oral tablet 10 mg, 1, tablet, By Mouth, 2 times a day, decrease dose, # 180 tablet, Refills 3, Tot. Refills 3, Maintenance, 06/26/20 8:44:00 EDT, Route to Pharmacy Electronically, [facility] #[id number], 165, cm, 11/03/19 18:19:00 EST, Height, 88, kg, ... Start Date: 06/26/20 Stop Date: 06/21/21 Status: Ordered hydrochlorothiazide-lisinopril 25 mg-20 mg oral tablet 1 tablet, By Mouth, Daily, discontinue HCTZ 12.5/lisnopril 20mg, # 90 tablet, 0 Refills, Maintenance, 08/19/20 11:21:00 EST, Tablet, [facility] #[id number], 90 days, 1 tablet By Mouth Daily,Instr:discontinue HCTZ 12.5/lisnopril 20mg, 165, cm, ... Start Date: 08/19/20 Status: Ordered Incruse Ellipta 62.5 mcg/inh inhalation powder = 62.5 mcg, Inhalation, Every 24 hours, doses should be taken at least 24 hours apart discontinue Tudorza, # 30 each, 5 Refills, Maintenance, 09/19/20 12:24:00 EST, [facility] #[id number], 165, cm, 11/03/19 18:19:00 EST, Height, 88, [...] tablet, 1 Refills, Maintenance, 08/28/20 9:20:00 EST, [facility] #[id number], 165, cm, 11/03/19 18:19:00 EST, Height, 88, kg, 11/03/19 18:19:00 EST, Dry Weight Start Date: 08/28/20 Status: Ordered loratadine 10 mg oral tablet 10 mg, 1, tablet, By Mouth, Daily, PRN, # 90 tablet, Refills 3, Tot. Refills 3, Maintenance, as needed for allergy symptoms, 08/30/19 9:25:00 EST, Route to Pharmacy Electronically, [facility] #[id number], 162.5, cm, 07/25/19 9:45:00 EST, Height,... Start Date: 08/30/19 Status: Ordered metFORMIN 500 mg oral tablet 1 tablet, By Mouth, 2 times a day, # 180 tablet, 3 Refills, Maintenance, 09/16/20 17:27:00 EST, [facility] #08521, 165, cm, 11/03/19 18:19:00 EST, Height, 88, kg, 11/03/19 18:19:00 EST, DryWeight Start Date: 09/16/20 Status: Ordered Emf-enx-erpfw medical-grade oxford diabetic shoes, depth or hightop Hmm-fvl-bybwc medical-grade oxford diabetic shoes, depth or hightop, [...] 3 Refills, Maintenance, 08/30/19 9:25:00 EST, Tablet, [facility] #[id number], 162.5, cm, 07/25/19 9:45:00 EST, Height, 85.9, kg, 199:45:00 EST, Dry Weight Start Date: 08/30/19 Status: Ordered Premarin Vaginal 0.625 mg/gm cream with applicator = 0.5 Gm, Vaginally, Every Wednesday and , # 42.5 Gm, 11 Refills, Maintenance, 02/02/20 16:27:00 EDT, [facility] #[id number], discontinue estradiol 10mcg vaginal, 0.5 Gm Vaginally Every Wednesday and , 165, cm, 11/03/19 18:19:00 EST,... Start Date: 02/02/20 Status: Ordered PriLOSEC OTC 20 mg oral delayed release tablet 1 tablet = 20 mg, By Mouth, Daily, Take 30 mins before breakfast, # 90 tablet, 3 Refills, Maintenance, 02/02/20 16:28:00 EDT, [facility] #[id number], is awared of interaction with citalopram,165, cm, 11/03/19 18:19:00 EST, Height, 88, kg,... Start Date: 02/02/20 Status: Ordered Remeron 15 mg oral tablet 0.5 tablet = 7.5 mg, By Mouth, Daily at bedtime, # 45 tablet, 1 Refills, Maintenance, 06/05/20 9:34:00 EDT, Tablet, [facility] #[id number], 165, cm, 11/03/19 18:19:00 EST, Height, 88, [...] 06/28/20 12:31:00 EDT, Route to Pharmacy Electronically, [facility] #[id number], 165, cm, 11/03/19 18:19:00 EST, Height, 88, [...] Gm, 5 Refills, Maintenance, 04/04/20 12:19:00 EDT, [facility] #[id number]... Start Date: 04/04/20 Status: [...] 9, 10, 11, 12, 13 08/09/06 Active *[id number] Care Partn jb Cabrera(Confirmed) Active Prurigo nodularis(Confirmed) 08/17/08 Active Renal insufficiency(Confirmed) Active Non-insulin dependent type 2 diabetes mellitus(Confirmed) 01/24/09 Active Varicose vein(Confirmed) Active Vitamin D deficiency(Confirmed) 07/26/08 Active 1CKD Stage III. 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
--- OUTSIDE RECORDS SUMMARY | 2024-07-06 12:08 | XMS_ITS | Continuity of Care Document ---
Author Organization [facility] Address [address] [place] [address]- Care Team Providers Care Lacing Presser Name Role Phone Marychuy MCCLAIN, Jessica Primary Care Physician Encounter [facility] Date(s): 09/10/22 - 10/10/22 [facility]/[place] [address]- [place] Allergies, Adverse Reactions, Alerts Substance Reaction [...] Vaccine Date Status Refusal Reason SARS-CoV-2 mRNA ([id number]) vax 02/17/22 Given influenza virus vaccine, inactivated [...] tablet, 11 Refills, Maintenance, 05/13/22 11:27:00 EDT, [facility] #[id number], Partial fill upon cherelle... Start Date: 05/13/22 Status: Ordered albuterol 0.083% inhalation solution 3 mL = 2.5 mg, Inhalation, Every 6 hours, # 25 each, 5 Refills, Maintenance, 08/12/22 15:02:00 EST,[facility] #[id number], 165, cm, 06/18/22 13:19:00 EDT, Height, 88.9, kg, 02/09/22 15:14:00 EDT, Dry Weight Start Date: 08/12/22 Stop Date: 02/08/23 Status: Ordered budesonide 0.5 mg/2 mL inhalation suspension 0.5 mg, 2, mL, Neb, 2 times a day, # 120 mL, Refills 11, Tot. Refills 11, Maintenance, 08/13/22 15:24:00 EST, Suspension, Route to Pharmacy Electronically, [id number], [facility] #[id number], 165, cm, 06/18/22 13:19:00 E... Start Date: 08/13/22 Status: Ordered calcium (as citrate)-vitamin D 315 mg-250 intl units oral tablet 2 tablet, By Mouth, 2 times a day, # 360 tablet, 0 Refills, Maintenance, 09/11/22 8:59:00 EST, [facility] #87232, 90, TAKE 2 TABLETS BY MOUTH TWICE DAILY, 165, cm, 06/18/22 13:19:00 EDT, Height, 88.9, kg, 02/09/22 15:14:00 EDT, Dry Weight Start Date: 09/11/22 Status: Ordered citalopram 20 mg oral tablet 20 mg, 1, tablet, By Mouth, Daily, # 90 tablet, Refills 3, Tot. Refills 3, Maintenance, 07/08/22 14:31:00 EDT, Route to Pharmacy Electronically, [facility] #[id number], MD is awared of interaction w nicky, 165, cm, 06/18/22 13:19:00 EDT, He... Start Date: 07/08/22 Status: Ordered Clarinex 5 mg oral tablet 1 tablet = 5 mg, By Mouth, Daily, # 90 tablet, 3 Refills, Maintenance, 04/29/22 12:53:00 EDT, Tablet, [facility] #[id number], 165, cm, 02/23/22 14:24:00 EDT, Height, 88.9, [...] 0 Refills, Soft Stop, 10/22/21 10:11:00 EST, [facility] #[id number], 165, cm, 10/22/21 9:05:00 EST, Height, 89.5, kg, 04/23/2121:43:00 EDT, Dry Weight Start Date: 10/22/21 Status: Ordered fluticasone 50 mcg/inh nasal spray See Instructions, SPRAY 2 TIMES IN EACH NOSTRILS EVERY DAY. NEEDED FOR ALLERGY SEASON. WHEN SPRAYING KEEP HEAD DOWN, # 16 Gm, 11 Refills, 02/17/22 13:14:00 EDT, [facility] #81720, 30, SPRAY 2 TIMES IN EACH NOSTRILS [...] 06/18/22 13:56:00 EDT, Route to Pharmacy Electronically, [facility] #[id number], Partial fill upon patient request if... Start Date: 06/18/22 Status: Ordered levothyroxine 0.05 mg oral tablet 1 tablet, By Mouth, Daily, # 30 tablet, 11 Refills, Maintenance, 09/30/22 12:56:00 EST, [facility] #01526, 163, cm, 09/30/22 11:48:00 EST, Height, 92.8, kg, 09/24/22 22:19:00 EST, Dry Weight Start Date: 09/30/22 Status: Ordered lisinopril 40 mg oral tablet 1 tablet = 40 mg, By Mouth, 2 times a day, increase dose discontinue HCTZ 12.5mg, # 60 tablet, 11 Refills, Maintenance, 09/30/22 12:54:00 EST, Tablet, [facility] #56588, 163, cm, 09/30/22 11:48:00 EST, Height, 92.8, kg, 09/24/22 22:19:00... Start Date: 09/30/22 Stop Date: 09/25/23 Status: Ordered Matzim LA 360 mg/24 hours oral tablet, extended release 1 tablet, By Mouth, Daily, # 90 tablet, 3 Refills, 02/17/22 13:08:00 EDT, [facility] #[id number], 165, cm, 02/17/22 12:49:00 EDT, Height, 88.9, kg, 02/09/22 15:14:00 EDT, Dry Weight Start Date: 02/17/22 Status: Ordered metFORMIN 500 mg oral tablet, extended release 1 tablet = 500 mg, By Mouth, Daily in AM, discontinue metformin 500mg with meal, # 30 tablet, 11 Refills, Maintenance, 09/30/22 12:51:00 EST, ER Tablet, [facility] #10359, 163, cm, 09/30/2310:48:00 EST, Height, 92.8, kg, 09/24/22 22:1... Start Date: 09/30/22 Status: Ordered mirtazapine 15 mg oral tablet 0.5 tablet, By Mouth, Daily at bedtime, DECREASED DOSE., # 45 tablet, 1 Refills, Maintenance, 05/12/22 9:17:00 EDT, [facility] #17813, 165, cm, 02/23/22 14:24:00 EDT, Height, 88.9, kg, 02/09/22 15:14:00 EDT, Dry Weight Start Date: 05/12/22 Status: Ordered montelukast 10 mg oral tablet 1, tablet, By Mouth, Daily at bedtime, SUPPLY., # 90 tablet, Refills 1, Maintenance, 06/18/22 14:04:00 EDT, Route to Pharmacy Electronically, [facility] #[id number], 165, cm, 06/18/22 13:19:00 EDT, Height, 88.9, kg, 02/09/22 15:14:00 EDT, Dry Weight Start Date: 06/18/22 Stop Date: 09/16/22 Status: Ordered Lqq-nxv-hygpr medical-grade oxford diabetic shoes, depth or hightop Ugz-vyr-epzjk medical-grade oxford diabetic shoes, depth or hightop, [...] Refills, Maintenance, 12/18/21 15:48:00 EDT, EC Capsule, [facility] #79639, 165, cm, 10/29/21 12:16:00 EST,... Start Date: 12/18/21 Status: Ordered pravastatin 80 mg oral tablet 1 tablet, By Mouth, Daily, # 90 tablet, 1 Refills, Maintenance, 06/27/22 12:04:00 EDT, [facility] #[id number], 165, cm, 06/18/22 13:19:00 EDT, Height, 88.9, kg, 02/09/22 15:14:00 EDT, Dry Weight Start Date: 06/27/22 Status: Ordered Premarin Vaginal 0.625 mg/gm cream with applicator See Instructions, APPLY 1/2 GRAM IN THE VAGINA EVERY WEDNESDAY AND WEDNESDAY, # 30 Gm, 11 Refills, Maintenance, 05/11/22 14:58:00 EDT, [facility] #[id number], 30, APPLY 1/2 GRAM IN THE VAGINA [...] 4, 5, 6, 7 Confirmed 08/09/06 Active *[id number] 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
--- OUTSIDE RECORDS SUMMARY | 2024-07-06 12:08 | XMS_ITS | Continuity of Care Document ---
Author Organization [facility] Address [address] [place] [address]- Care Team Providers Care Nutrition Partner Name Role Phone Marychuy MCCLAIN, Jessica Primary Care Physician Encounter [facility] Date(s): 02/09/22 - 02/11/[address] [address] Discharge Disposition: A-D/C Home Attending Physician: Denis MCCLAIN, Shreya Jean Baptiste Admitting Physician: Arnoldo MCCLAIN, Rubina Lambert Referring Physician: Not on Staff, Referring MD [...] GIVEN 9Admin Note: GIVEN BY NURSE Medications albuterol 0.083% inhalation solution 3 mL = 2.5 mg, Inhalation, Every 6 hours, # 25 each, 2 Refills, Maintenance, 02/04/22 14:43:00 EDT,[facility] #[id number], 165, cm, 10/29/21 12:16:00 EST, Height, 89.5, kg, 04/23/21 21:43:00 EDT, Dry Weight Start Date: 02/04/22 Stop Date: 05/05/22 Status: Ordered azithromycin 250 mg oral tablet = 250 mg, By Mouth, Daily, # 2 tablet, 0 Refills, Acute 02/12/22 10:00:00 EDT, 02/12/22 9:00:00 EDT, Tablet, [facility] #[id number], ., 165, cm, 02/11/22 14:42:00 EDT, Height, 88.9, kg, 02/09/2215:14:00 EDT, Dry Weight Start Date: 02/12/22 Stop Date: 02/12/22 Status: Ordered budesonide 0.5 mg/2 mL inhalation suspension 0.5 mg, 2, mL, Neb, 2 times a day, # 120 mL, Refills 5, Tot. Refills 5, Maintenance, 02/11/22 14:27:00 EDT, Suspension, Route to Pharmacy Electronically, [id number], [facility] #[id number], 165, cm, 02/09/22 15:14:00 EDT... Start Date: 02/11/22 Status: Ordered calcium (as citrate)-vitamin D 315 mg-250 intl units oral tablet 2 tablet, By Mouth, 2 times a day, Tej, # 360 tablet, 3 Refills, Maintenance, 03/26/21 13:03:00 EDT, Tablet, [facility] #[id number], 2 tablet By Mouth 2 times a day,x90 days,Instr:Tej, 165, cm, 03/26/21 11:57:00 EDT, Height, 88, kg, 11/03/19 18... Start Date: 03/26/21 Stop Date: 03/21/22 Status: Ordered celecoxib 100 mg oral capsule 1 capsule = 100 mg, By Mouth, 2 times a day, PRN knee pain, # 60 capsule, 5 Refills, Maintenance, 10/22/21 10:44:00 EST, Capsule, [facility] #02368, 165, cm, 10/22/21 9:05:00 EST, Height, 89.5, kg, 04/23/21 21:43:00 EDT, Dry Weight Start Date: 10/22/21 Status: Ordered citalopram 20 mg oral tablet 20 mg, 1, tablet, By Mouth, Daily, # 90 tablet, Refills 3, Tot. Refills 3, Maintenance, 07/12/21 18:12:00 EDT, Route to Pharmacy Electronically, [facility] #[id number] is awared of interaction w nicky, 165, cm, 04/23/21 21:43:00 EDT, He... Start Date: 07/12/21 Status: Ordered Clarinex 5 mg oral tablet 1 tablet = 5 mg, By Mouth, Daily, Discontinue loratadine, # 30 tablet, 11 Refills, Maintenance, 03/26/21 13:02:00 EDT, Tablet, [facility] #[id number], 165, cm, 03/26/21 11:57:00 EDT, Height, 88,kg, 11/03/19 18:19:00 EST, Dry Weight Start Date: 03/26/21 Status: Ordered EPINEPHrine 0.3 mg injectable solution = 0.3 mg, Intramuscular, Once, PRN Anaphylactic Reaction, # 1 each, 0 Refills, Soft Stop, 10/22/21 10:11:00 EST, [facility] #[id number], 165, cm, 10/22/21 9:05:00 EST, Height, 89.5, kg, 04/23/2121:43:00 EDT, Dry Weight Start Date: 10/22/21 Status: Ordered fluticasone 50 mcg/inh nasal spray See Instructions, SPRAY 2 TIMES IN EACH NOSTRILS EVERY DAY. NEEDED FOR ALLERGY SEASON. WHEN SPRAYING KEEP HEAD DOWN, # 16 Gm, 0 Refills, [facility] #[id number], 30, SPRAY 2 TIMES IN EACH NOSTRILS EVERY DAY. NEEDED FOR ALLERGY SEASON. WHEN S... Start Date: 01/09/22 Status: Ordered formoterol 10 mcg/mL inhalation solution 2 mL = 20 mcg, Inhalation, 2 times a day, using a continuous flow nebulizer, # 60 each, 5 Refills, Maintenance, 02/11/22 14:28:00 EDT, Solution, [facility] #[id number], 165, cm, 02/09/22 15:14:00 EDT, Height, 88.9, kg, 02/09/22 15:14:00 EDT, Dry... Start Date: 02/11/22 Status: Ordered hydrALAZINE 10 mg oral tablet 1, tablet, By Mouth, 3 times a day, Increase dose, # 90 tablet, Refills 11, Tot. Refills 11, 10/22/21 10:40:00 EST, Route to Pharmacy Electronically, [facility] #[id number], 165, cm, 10/22/21 9:05:00 EST, Height, 89.5, kg, 04/23/21 21:43:00 EDT,... Start Date: 10/22/21 Status: Ordered hydrochlorothiazide 12.5 mg oral tablet 1 tablet = 12.5 mg, By Mouth, Daily, discontinue HCTZ/lisinopril 25mg /20mg, # 30 tablet, 11 Refills, Maintenance, 10/29/21 13:48:00 EST, Tablet, [facility] #61519, 165, cm, 10/29/21 12:16:00 EST, Height, 89.5, kg, 04/23/21 21:43:00 EDT, [facility].. Start Date: 10/29/21 Status: Ordered levothyroxine 0.05 mg oral tablet 1 tablet, By Mouth, Daily, # 90 tablet, 1 Refills, [facility] #[id number], 165, cm, 10/29/21 12:16:00 EST, Height, 89.5, kg, 04/23/21 21:43:00 EDT, Dry Weight Start Date: 11/20/21 Status: Ordered lisinopril 20 mg oral tablet 40 mg, Tablet, By Mouth, 02/11/22 9:00:00 EDT Start Date: 02/11/22 Stop Date: 02/11/22 Status: Completed lisinopril 40 mg oral tablet 1 tablet = 40 mg, By Mouth, Daily, discontinue HCTZ/lisinopril 25mg /20mg, # 30 tablet, 11 Refills,Maintenance, 10/29/21 13:47:00 EST, Tablet, [facility] #[id number], Partial fill upon patient request if the prescription is for a schedule II op... Start Date: 10/29/21 Status: Ordered Matzim LA 360 mg/24 hours oral tablet, extended release 1 tablet, By Mouth, Daily, # 90 tablet, 0 Refills, [facility] #[id number], 165, cm, 10/29/21 12:16:00 EST, Height, 89.5, kg, 04/23/21 21:43:00 EDT, Dry Weight Start Date: 01/09/22 Status: Ordered metFORMIN 500 mg oral tablet 1 tablet, By Mouth, 2 times a day, # 180 tablet, 3 Refills, Maintenance, 10/13/21 14:33:00 EST, [facility] #[id number], 165, cm, 04/23/21 21:43:00 EDT, Height, 89.5, kg, 04/23/21 21:43:00 EDT, Dry Weight Start Date: 10/13/21 Status: Ordered omeprazole 20 mg oral enteric coated capsule 1 capsule = 20 mg, By Mouth, Daily, Take 30 mins before breakfast MD is awared of interaction with citalopram, # 30 capsule, 11 Refills, Maintenance, 12/18/21 15:48:00 EDT, EC Capsule, [facility] #[id number], 165, cm, 10/29/21 12:16:00 EST,... Start Date: 12/18/21 Status: Ordered polyethylene glycol 3350 oral powder for reconstitution = 17 Gm, By Mouth, Daily, PRN as needed for constipation, (dissolve in water or juice), # 527 Gm, 11 Refills, Maintenance, 10/22/21 10:43:00 EST, [facility] #[id number], Partial fill upon patient request if the prescription is for a schedule II o... Start Date: 10/22/21 Status: Ordered pravastatin 80 mg oral tablet 1 tablet, By Mouth, Daily, # 90 tablet, 1 Refills, Maintenance, 01/05/22 10:39:00 EDT, [facility] #[id number], 165, cm, 10/29/21 12:16:00 EST, Height, 89.5, kg, 04/23/21 21:43:00 EDT, Dry Weight Start Date: 01/05/22 Status: Ordered Premarin Vaginal 0.625 mg/gm cream with applicator = 0.5 Gm, Vaginally, Every Wednesday and , # 42.5 Gm, 11 Refills, Maintenance, 03/26/21 13:01:00 EDT, [facility] #[id number], 0.5 Gm Vaginally Every Wednesday and , 165, cm, 03/26/21 11:57:00 EDT, Height, 88, kg, 11/03/19 18:19:00 EST,... Start Date: 03/26/21 Status: Ordered Remeron 15 mg oral tablet 0.5 tablet = 7.5 mg, By Mouth, Daily at bedtime, Decreased dose, # 45 tablet, 3 Refills, Maintenance, 03/26/21 13:13:00 EDT, Tablet, [facility] #58345, 165, cm, 03/26/21 11:57:00 EDT, Height, 88, kg, 11/03/19 18:19:00 EST, Dry Weight Start Date: 03/26/21 Stop Date: 03/21/22 Status: Ordered Singulair 10 mg oral tablet 10 mg, 1, tablet, By Mouth, Daily at bedtime, 90 days supply, # 90 tablet, Refills 1, Tot. Refills 1, Maintenance, 12/16/21 10:05:00 EDT, Route to Pharmacy Electronically, [facility] #[id number], 165, cm, 10/29/21 12:16:00 EST, Height, 89.5, kg,... Start Date: 12/16/21 Status: Ordered Turmeric 500 mg oral capsule 1 capsule = 500 mg, By Mouth, Daily, # 30 capsule, 11 Refills, Maintenance, 10/22/21 10:44:00 EST, Capsule, [facility] #[id number], ., 165, cm, 10/22/21 9:05:00 EST, Height, 89.5, kg, 04/23/21 21:43:00 EDT, Dry Weight Start Date: 10/22/21 Status: Ordered Problem List Condition Effective Dates [...] 3, 4, 5, 6, 7 08/09/06 Active *[id number] Care Partn Dolores Cabrera(Confirmed) Active Varicose vein(Confirmed) Active 1Mild [...] Exam Date Time Procedure Performing Provider Status 02/09/22 9:09 AM Chest 2 Views Frontal and Lat Merline Stover (Verified) Notes: (Chest 2 Views Frontal and Lat) Reason For Exam: Shortness of Breath RESULT: Chest 2 Views Frontal and Lat PA and lateral chest dated February 09, 2022. Comparison films are from July 28, 2012. HISTORY: Shortness of breath. FINDINGS: The cardiac silhouette is within normal limits for size. Hilar and mediastinal structuresare unremarkable. No airspace infiltrate or pleural effusion is identified. The lungs are hyperinflated with flattened diaphragms and an increased retrosternal clear space. Degenerative changes are noted in the spine. IMPRESSION: No evidence of acute pulmonary disease. Findings are consistent with the clinical diagnosis of COPD. Examination 25914. Thank you for allowing me to participate in the care of this patient. WSN: [id number] Ordering Physician: Travis Huffman Dictated By: Tony Lao MD Dictated Date/Time: 02/09/22 11:11 a Reviewed By: Tony Lao MD Signed By: Tony Lao MD Signed Date/Time: 02/09/22 11:11 am Transcribed By: CSB Transcribed Date/Time: 02/09/22 11:11 am Vital Signs Most recent to oldest [Reference Range]: 1 2 3 Height 165 cm (02/11/22 2:42 PM) 165 cm (02/09/22 3:14 PM) 165 cm (02/09/22 8:25 AM) Weight 88.9 kg (02/09/22 3:14 PM) 90 kg (02/09/22 8:04 AM) 90 kg (02/09/22 8:02 AM) Oxygen Saturation [94-100 %] 94 % (02/11/22 2:42 PM) 97 % (02/11/22 4:00 AM) 98 % (02/10/22 8:00 PM) Pulse Rate [55-90 bpm] 74 bpm (02/11/22 2:42 PM) 88 bpm (02/11/22 4:00 AM) 110 bpm *H* (02/10/22 8:00 PM) Body Mass Index [18.5-24.99] 32.65 *>HHI* (02/09/22 3:14 PM) 33.06 *>HHI* (02/09/22 8:02 AM) Blood Pressure [90-138/55-84 mm Hg] 127/74mm Hg (02/11/22 2:42 PM) 132/58mm Hg (02/11/22 8:16 AM) 126/61mm Hg (02/11/22 4:00 AM) Respiratory Rate [16-30 br/min] 18 br/min (02/11/22 2:42 PM) 17 br/min (02/11/22 4:00 AM) 19 br/min (02/10/22 8:00 PM) Temperature [96.8-100.4 DegF] 96.9 DegF (02/11/22 2:42 PM) 98.0 DegF (02/11/22 4:00 AM) 97.7 DegF (02/10/22 8:00 PM) Liters per Minute 0 L/min (02/10/22 5:00 AM) 0 L/min (02/09/22 8:00 PM) Mode of Delivery (Oxygen) Room air (02/11/22 2:42 PM) Room air (02/11/22 4:00 AM) Room air (02/10/22 8:00 PM) Blood pressure sites Arm, right (02/11/22 2:42 PM) Arm, right (02/11/22 4:00 AM) Arm, right (02/10/22 8:00 PM) Temperature Route Oral (02/11/22 2:42 PM) Oral (02/11/22 4:00 AM) Oral (02/10/22 8:00 PM) Dry Weight 88.9 kg (02/09/22 3:14 PM) 90 kg (02/09/22 8:04 AM) 90 kg (02/09/22 8:02 AM) Weight Obtained Via Standing scale (02/09/22 3:14 PM) Social History Social History Type Response Smoking Status Never (less than 100 in lifetime) entered on: 03/26/21 Sex
--- OUTSIDE RECORDS SUMMARY | 2024-07-06 12:08 | XMS_ITS | Continuity of Care Document ---
Author Organization [facility] Address [address] [place] [address]- Care Team Providers Care Material Stress Tester Name Role Phone Marychuy MCCLAIN, Jessica Primary Care Physician Encounter [facility] Date(s): 12/28/22 - 01/27/23 [facility] [address]- [place] Allergies, Adverse Reactions, Alerts Substance Reaction [...] Vaccine Date Status Refusal Reason SARS-CoV-2 mRNA ([id number]) vax 02/17/22 Given influenza virus vaccine, inactivated [...] anaphylaxis and local reaction, and risks ofvaccine. IVLMA 4Admin Note: 03/12/2009 given 5Admin Note: vis..03/12/06 [...] tablet, 11 Refills, Maintenance, 05/13/22 11:27:00 EDT, [facility] #[id number], Partial fill upon cherelle... Start Date: 05/13/22 Status: Ordered albuterol 0.083% inhalation solution 3 mL = 2.5 mg, Inhalation, Every 6 hours, # 25 each, 5 Refills, Maintenance, 08/12/22 15:02:00 EST,[facility] #[id number], 165, cm, 06/18/22 13:19:00 EDT, Height, 88.9, kg, 02/09/22 15:14:00 EDT, Dry Weight Start Date: 08/12/22 Stop Date: 5/29/23 Status: Ordered apixaban 5 mg oral tablet 1 tablet = 5 mg, By Mouth, 2 times a day, # 180 tablet, 0 Refills, Maintenance, 12/16/22 16:34:00 EDT, Tablet, [facility] #[id number], Partial fill upon patient request if the prescription is for a schedule II opioid drug., 163, cm, 12/16/22 7:58... Start Date: 12/16/22 Stop Date: 03/16/23 Status: Ordered budesonide 0.5 mg/2 mL inhalation suspension 0.5 mg, 2, mL, Neb, 2 times a day, # 120 mL, Refills 11, Tot. Refills 11, Maintenance, 10/16/22 16:58:00 EST, Suspension, Route to Pharmacy Electronically, [id number], [facility] #[id number], 163, cm, 10/16/22 16:21:00 E... Start Date: 10/16/22 Status: Ordered budesonide 0.5 mg/2 mL inhalation suspension 0.5 mg, 2, mL, Neb, 2 times a day, # 120 mL, Refills 11, Tot. Refills 11, Maintenance, 08/13/22 15:24:00 EST, Suspension, Route to Pharmacy Electronically, [id number], [facility] #[id number], 165, cm, 06/18/22 13:19:00 E... Start Date: 08/13/22 Status: Ordered calcium (as citrate)-vitamin D 315 mg-250 intl units oral tablet 2 tablet, By Mouth, 2 times a day, # 360 tablet, 0 Refills, Maintenance, 12/07/22 14:46:00 EDT, [facility] #[id number], 90, 2 tablet By Mouth 2 times a day, 163, cm, 11/05/22 16:59:00 EST, Height, 90, kg, 11/05/22 16:59:00 EST, Dry Weight Start Date: 12/07/22 Status: Ordered citalopram 20 mg oral tablet 20 mg, 1, tablet, By Mouth, Daily, # 90 tablet, Refills 3, Tot. Refills 3, Maintenance, 07/08/22 14:31:00 EDT, Route to Pharmacy Electronically, [facility] #[id number], MD is awared of interaction w nicky, 165, cm, 06/18/22 13:19:00 EDT, He... Start Date: 07/08/22 Status: Ordered Clarinex 5 mg oral tablet 1 tablet = 5 mg, By Mouth, Daily, # 90 tablet, 3 Refills, Maintenance, 04/29/22 12:53:00 EDT, Tablet, [facility] #[id number], 165, cm, 02/23/22 14:24:00 EDT, Height, 88.9, [...] 0 Refills, Soft Stop, 10/22/21 10:11:00 EST, [facility] #[id number], 165, cm, 10/22/21 9:05:00 EST, Height, 89.5, kg, 04/23/2121:43:00 EDT, Dry Weight Start Date: 10/22/21 Status: Ordered fluticasone 50 mcg/inh nasal spray See Instructions, SPRAY 2 TIMES IN EACH NOSTRILS EVERY DAY. NEEDED FOR ALLERGY SEASON. WHEN SPRAYING KEEP HEAD DOWN, # 16 Gm, 11 Refills, 02/17/22 13:14:00 EDT, [facility] #79008, 30, SPRAY 2 TIMES IN EACH NOSTRILS EVERY DAY. NEEDED FO... Start Date: 02/17/22 Status: Ordered formoterol 10 mcg/mL inhalation solution 2 mL = 20 mcg, Inhalation, 2 times a day, using a continuous flow nebulizer, # 120 mL, 11 Refills, Maintenance, 10/16/22 16:58:00 EST, Solution, [facility] #[id number], Partial fill upon patientrequest if the prescription [...] 11/05/22 17:53:00 EST, Route to Pharmacy Electronically, [facility] #[id number], Partial fill upon patient request if the prescription is for a schedule II opi... Start Date: 11/05/22 Stop Date: 11/10/22 Status: Ordered gabapentin 300 mg oral capsule 300 mg, 1, capsule, By Mouth, 2 times a day, PRN, # 20 capsule, Refills 0, Tot. Refills 0, Maintenance, Pain , Severe, 11/05/22 17:53:00 EST, Route to Pharmacy Electronically, [facility] #[id number], Partial fill upon patient request if the presc... Start Date: 11/05/22 Stop Date: 11/15/22 Status: Ordered hydrALAZINE 25 mg oral tablet 25 mg, 1, tablet, By Mouth, 3 times a day, discontinue hydralazine 10mg, # 90 tablet, Refills 11, Tot. Refills 11, Maintenance, 06/18/22 13:56:00 EDT, Route to Pharmacy Electronically, [facility] #[id number], Partial fill upon patient request if... Start [...] tablet, 11 Refills, Maintenance, 09/30/22 12:56:00 EST, [facility] #[id number], 163, cm, 09/30/22 11:48:00 EST, Height, 92.8, kg, 09/24/22 22:19:00 EST, Dry Weight Start Date: 09/30/22 Status: Ordered lisinopril 40 mg oral tablet 1 tablet = 40 mg, By Mouth, 2 times a day, increase dose discontinue HCTZ 12.5mg, # 60 tablet, 11 Refills, Maintenance, 09/30/22 12:54:00 EST, Tablet, [facility] #[id number], 163, cm, 09/30/22 11:48:00 EST, Height, 92.8, kg, 09/24/22 22:19:00... Start Date: 09/30/22 Stop Date: 09/25/23 Status: Ordered Matzim LA 360 mg/24 hours oral tablet, extended release 1 tablet, By Mouth, Daily, # 90 tablet, 3 Refills, 02/17/22 13:08:00 EDT, [facility] #[id number], 165, cm, 02/17/22 12:49:00 EDT, Height, 88.9, kg, 02/09/22 15:14:00 EDT, Dry Weight Start Date: 02/17/22 Status: Ordered metFORMIN 500 mg oral tablet, extended release 1 tablet = 500 mg, By Mouth, Daily in AM, discontinue metformin 500mg with meal, # 30 tablet, 11 Refills, Maintenance, 09/30/22 12:51:00 EST, ER Tablet, [facility] #[id number], 163, cm, 09/30/2310:48:00 EST, Height, 92.8, kg, 09/24/22 22:1... Start Date: 09/30/22 Status: Ordered mirtazapine 15 mg oral tablet 0.5 tablet, By Mouth, Daily at bedtime, DECREASED DOSE, # 45 tablet, 1 Refills, Maintenance, 10/20/22 20:06:00 EST, [facility] #[id number], 163, cm, 10/16/22 16:21:00 EST, Height, 92.8, kg, 09/24/22 22:19:00 EST, Dry Weight Start Date: 10/20/22 Status: Ordered montelukast 10 mg oral tablet 1, tablet, By Mouth, Daily at bedtime, SUPPLY., # 90 tablet, Refills 1, Tot. Refills 1, Maintenance, 12/07/22 14:50:00 EDT, Route to Pharmacy Electronically, [facility] #[id number], 163, cm, 11/05/22 16:59:00 EST, Height, 90, kg, 11/05/22 16:59:0... Start Date: 12/07/22 Stop Date: 06/05/23 Status: Ordered Svu-cly-gazle medical-grade oxford diabetic shoes, depth or hightop Pul-yrk-uhtjr medical-grade oxford diabetic shoes, depth or hightop, [...] Refills, Maintenance, 12/07/22 14:49:00 EDT, EC Capsule, [facility] #[id number], 163, cm, 11/05/22 16:59:00 EST,... Start Date: 12/07/22 Status: Ordered pravastatin 80 mg oral tablet 1 tablet, By Mouth, Daily, # 90 tablet, 1 Refills, Maintenance, 12/07/22 14:47:00 EDT, [facility] #[id number], 163, cm, 11/05/22 16:59:00 EST, Height, 90, kg, 11/05/22 16:59:00 EST, Dry Weight Start Date: 12/07/22 Status: Ordered Premarin Vaginal 0.625 mg/gm cream with applicator See Instructions, APPLY 1/2 GRAM IN THE VAGINA EVERY WEDNESDAY AND WEDNESDAY, # 30 Gm, 11 Refills, Maintenance, 05/11/22 14:58:00 EDT, [facility] #28821, 30, APPLY 1/2 GRAM IN THE VAGINA EVERY WEDNESDAY AND WEDNESDAY, 165, cm, 02/23/22 14:24:00 EDT,... Start Date: 05/11/22 Status: Ordered ProAir HFA 90 mcg/inh inhalation aerosol with adapter 2, puffs, Inhalation, 4 times a day, PRN, # 1 each, Refills 11, Tot. Refills 11, Maintenance, 10/16/22 17:00:00 EST, Route to Pharmacy Electronically, [id number], [facility] #[id number], 163, cm, 10/16/22 16:21:00 EST, H... Start [...] day, PRN itching Apply to lower extremities Portuguese, # 30 Gm, 0Refills, Maintenance, 01/07/23 14:27:00 EDT, [facility], Partial fill upon patient request if [...] 4, 5, 6, 7 Confirmed 08/09/06 Active *[phone] Departmental Shipping Clerk Francis Malinarnacion Confirmed Active Severe obesity (BMI [...] Team Personnel Name: Carlos PAREDES, Haley Position: [facility] RN Member Role: Primary Care Nurse Name: Jessica Perrin MD Position: [facility] Primary Care Physician Member Role: PCP Address: Address: [address] [place] [address]- Care Team Related Persons Name: SANDY BOYCE Address: home [address] [place] [address] Name: COLT BOYCE Address: home [address] [place] [address]
--- OUTSIDE RECORDS SUMMARY | 2024-07-06 12:09 | XMS_ITS | Continuity of Care Document ---
Author Organization [facility] Address [address] [place] [id number]- Care Team Providers Care Valve Seater Operator Name Role Phone Marychuy MCCLAIN, Jessica Primary Care Physician [facility] Date(s): 02/22/24 - 03/23/24 [facility]/[address] [address]- Allergies, Adverse Reactions, Alerts Substance Reaction Severity [...] virus vaccine, inactivated 5 07/29/06 Gi javon [id number] 12y+ bivalent booster vax 03/24/23 Given [id number] 12y+ bivalent booster vax 07/28/22 Recorded SARS-CoV-2 mRNA (fjpihqy-xboh-gsfed) vax 02/17/22 Given SARS-CoV-2 (COVID-19) mRNA BNT-162b2 [...] Refills, Maintenance, 01/19/24 8:32:00 EDT, ER Tablet, [facility] #[id number], Partial fill upon patient request if th... Start Date: 01/19/24 Status: Ordered Albuterol (Eqv-ProAir HFA) 90 mcg/inh inhalation aerosol 2 puffs, Inhalation, Every 6 hours, PRN Wheezing/Shortness of Breath, # 8.5 Gm, 5 Refills, Maintenance, 01/19/24 8:30:00 EDT, [facility] #[id number], If pump is not covered, it can [...] 01/19/24 8:40:00 EDT, Route to Pharmacy Electronically, [id number], [facility] #[id number], 165, cm, 01/19/24 7:55:00 EDT, Height, 85.... Start Date: 01/19/24 Status: Ordered calcium (as citrate)-vitamin D 315 mg-250 intl units oral tablet 2 tablet, By Mouth, 2 times a day, # 360 tablet, 3 Refills, Maintenance, 03/18/24 10:33:00 EDT, [facility] #[id number], 2 tablet By Mouth 2 times a day,x90 days, 165, cm, 01/19/24 7:55:00 EDT, Height, 85.45, kg, 12/23/23 9:04:00 EDT, Dry Weight Start Date: 03/18/24 Stop Date: 03/13/25 Status: Ordered ciclopirox 8% topical solution 1 application, Topically, Daily, as directed to affected area toenails, # 6.6 mL, 11 Refills, Maintenance, 01/19/24 9:20:00 EDT, Solution, [facility] #[id number], ., 1 application Topically Daily,Instr:as directed; to affected area toenails, 165... Start Date: 01/19/24 Status: Ordered Clarinex 5 mg oral tablet 1 tablet = 5 mg, By Mouth, Daily, # 90 tablet, 3 Refills, Maintenance, 03/18/24 10:23:00 EDT, Tablet, [facility] #[id number], 165, cm, 01/19/24 7:55:00 EDT, Height, 85.45, [...] 11 Refills, Maintenance, 01/19/24 8:42:00 EDT, Gel, [facility] #[id number], ., 165, cm, 01/19/24 7:55:00 EDT, Height, 85.45, kg, 12/23/23 9:04:00 EDT,Dry Weight Start Date: 01/19/24 Stop Date: 07/05/24 Status: Ordered Eliquis 5 mg oral tablet 1 tablet, By Mouth, 2 times a day, # 180 tablet, 3 Refills, Maintenance, 01/19/24 9:20:00 EDT, [facility] #[id number], 165, cm, 01/19/24 7:55:00 EDT, Height, 85.45, kg, 12/23/23 9:04:00 EDT, DryWeight Start Date: 01/19/24 Status: Ordered EPINEPHrine 0.3 mg injectable solution = 0.3 mg, Intramuscular, Once, PRN Anaphylactic Reaction, # 1 each, 0 Refills, Soft Stop, 10/22/21 10:11:00 EST, [facility] #[id number], 165, cm, 10/22/21 9:05:00 EST, Height, 89.5, kg, 04/23/2121:43:00 EDT, Dry Weight Start Date: 10/22/21 Status: Ordered escitalopram 10 mg oral tablet 1 tablet = 10 mg, By Mouth, Daily, discontinue citalopram, # 30 tablet, 11 Refills, Maintenance, 01/19/24 8:34:00 EDT, Tablet, [facility] #[id number], Partial fill upon patient request if the prescription is for a schedule II opioid drug., 165, c... Start Date: 01/19/24 Status: Ordered fluticasone 50 mcg/inh nasal spray 2 sprays, Nares, Both, Daily, Use every day during allergy season. While using spray keep head down., # 3 each, 3 Refills, Maintenance, 03/18/24 10:28:00 EDT, [facility] #[id number], ., 2 spraysNares, Both Daily,x90 days,Instr:Use every day duri... Start Date: 03/18/24 Stop Date: 03/13/25 Status: Ordered formoterol 10 mcg/mL inhalation solution See Instructions, USE 2 ML VIA NEBULIZER TWICE DAILY USING A CONTINUOUS FLOW VIA NEBULIZER, # 120 mL, 11 Refills, Maintenance, 01/19/24 8:40:00 EDT, [facility] #[id number], 165, cm, 01/19/24 7:55:00 EDT, Height, 85.45, [...] tablet, 3 Refills, Maintenance, 03/18/24 10:31:00 EDT, [facility] #[id number], 165, cm, 01/19/24 7:55:00 EDT, Height, 85.45, kg, 12/23/23 9:04:00 EDT, Dry Weight Start Date: 03/18/24 Stop Date: 03/13/25 Status: Ordered lisinopril 40 mg oral tablet 1 tablet = 40 mg, By Mouth, Daily in AM, 11 AM Decreased dose, # 90 tablet, 3 Refills, Maintenance,03/18/24 10:12:00 EDT, Tablet, [facility] #82059, 165, cm, 01/19/24 7:55:00 EDT, Height, 85.45, kg, 12/23/23 9:04:00 EDT, Dry Weight Start Date: 03/18/24 Stop Date: 03/13/25 Status: Ordered Matzim LA 180 mg/24 hours oral tablet, extended release 1 tablet = 180 mg, By Mouth, Daily in AM, Take at 11 AM, # 90 tablet, 3 Refills, Maintenance, 03/18/24 9:58:00 EDT, ER Tablet, [facility] #56828, 165, cm, 01/19/24 7:55:00 EDT, Height, 85.45, kg, 12/23/23 9:04:00 EDT, Dry Weight Start Date: 03/18/24 Stop Date: 03/13/25 Status: Ordered MetFORMIN (Eqv-Glucophage XR) 500 mg oral tablet, extended release 1 tablet, By Mouth, 2 times a day with meals, INCREASE DOSE, # 180 tablet, 3 Refills, Maintenance, 12/22/23 16:13:00 EDT, [facility] #[id number], 165, cm, 12/20/23 5:43:00 EDT, Height, 84.5, kg,12/19/23 17:15:00 EDT, Dry Weight Start Date: 12/22/23 Status: Ordered metoprolol 25 mg oral tablet, extended release 25 mg, 1, tablet, By Mouth, Daily, # 30 tablet, Refills 11, Tot. Refills 11, Maintenance, 01/19/24 8:40:00 EDT, Route to Pharmacy Electronically, [facility] #[id number], 165, cm, 01/19/24 7:55:00 EDT, Height, 85.45, kg, 12/23/23 9:04:00 EDT, Dry... Start Date: 01/19/24 Status: Ordered mirtazapine 15 mg oral tablet 0.5 tablet, By Mouth, Daily at bedtime, # 45 tablet, 3 Refills, Maintenance, 03/18/24 10:22:00 EDT,[facility] #[id number], 165, cm, 01/19/24 7:55:00 EDT, Height, 85.45, kg, 12/23/23 9:04:00 EDT, Dry Weight Start Date: 03/18/24 Stop Date: 03/13/25 Status: Ordered montelukast 10 mg oral tablet 1, tablet, By Mouth, Daily at bedtime, SUPPLY., # 90 tablet, Refills 3, Tot. Refills 3, Maintenance, 06/05/23 14:50:00 EDT, Route to Pharmacy Electronically, [facility] #[id number], 160, cm, 03/24/23 10:19:00 EDT, Height, 89.54, kg, 02/09/23 16:4... Start Date: 06/05/23 Status: Ordered Nucala Prefilled Autoinjector 100 mg/mL subcutaneous solution = 100 mg, Subcutaneous Infusion, Every 28 days, j45.40, # 1 each, 11 Refills, Maintenance, 01/12/2414:58:00 EDT, [facility], Partial fill upon patient request if the prescription isfor a schedule II opioid drug., 165, cm, 01/04/24 1... Start Date: 01/13/24 Status: Ordered Xhu-yig-istgt medical-grade oxford diabetic shoes, depth or hightop Fgw-bof-rkvxh medical-grade oxford diabetic shoes, depth or hightop, [...] capsule, 3 Refills, Maintenance, 03/18/24 10:28:00 EDT, [facility] #[id number], 165, cm, 01/19/24 7:55:00 EDT, Height, 85.45, kg, 12/23/23 9:04:00 EDT, Dry Weight Start Date: 03/18/24 Stop Date: 03/13/25 Status: Ordered pravastatin 80 mg oral tablet 1 tablet, By Mouth, Daily, # 90 tablet, 3 Refills, Maintenance, 03/24/23 10:32:00 EDT, [facility] #[id number], 160, cm, 03/24/23 10:19:00 EDT, Height, 89.54, kg, 02/09/23 16:45:00 EDT, Dry Weight Start Date: 03/24/23 Stop Date: 03/18/24 Status: Ordered Premarin Vaginal 0.625 mg/gm cream with applicator See Instructions, APPLY 1/2 GRAM IN THE VAGINA EVERY WEDNESDAY AND WEDNESDAY, # 30 Gm, 11 Refills, Maintenance, 01/19/24 9:20:00 EDT, [facility] #[id number], 30, APPLY 1/2 GRAM IN THE VAGINA [...] in AM, at 11 AM Given by maintenance clerk, Dr. Indio Mason, # 30 tablet, Refills [...] day, PRN itching Apply to lower extremities Cymro, # 30 Gm, 2Refills, Maintenance, 02/23/24 8:27:00 EDT, [facility] #[id number], 1 application Topically 3 times a day,Instr:PRN itching ; Apply to lower e... Start Date: 02/23/24 Status: Ordered Wixela Inhub 100 mcg-50 mcg inhalation powder 1 inhalation, Inhalation, 2 times a day, J45..0rinse mouth and throat after use, # 1 each, 5 Refills, Maintenance, 01/26/24 9:28:00 EDT, Powder, [facility] #32694, Partial fill upon patientrequest if the prescription [...] 5, 6, 7, 8 Confirmed 08/09/06 Active *[id number] Seedling Sorter Michelle Cain Confirmed Active Varicose vein Confirmed [...] Primary Care Member Role: PCP Address: Address: [address] [place] [address]- Care Team Related Persons Name: SANDY BOYCE Address: home [address] [place] [address] Name: COLT BOYCE Address: home [address] [place] [address]
--- OUTSIDE RECORDS SUMMARY | 2024-07-06 12:09 | XMS_ITS | Continuity of Care Document ---
Author Organization [facility] Address [address] [place] [address]- Care Team Providers Care Pole Sander Operator Name Role Phone Marychuy MCCLAIN, Jessica Primary Care Physician [facility] Date[facility]s): 09/19/20 - 10/19/20 [facility]/[address] [address]- Allergies, Adverse Reactions, Alerts Substance Reaction Severity [...] Refills, Maintenance, 07/22/20 10:02:00 EST, ER Tablet, [facility] #[id number], 165, cm, 11/03/19 18:19:00 ES... Start Date: [...] 02/02/20 16:28:00 EDT, Route to Pharmacy Electronically, [facility] #[id number], 165, cm, 11/03/19 18:19:00 EST, Height, 88, kg, 11/03/19 18:19:00... Start Date: 02/02/20 Status: Ordered calcium (as citrate)-vitamin D 315 mg-250 intl units oral tablet 2 tablet, By Mouth, 2 times a day, Tej, # 360 tablet, 3 Refills, Maintenance, 02/02/20 16:28:00 EDT, Tablet, [facility] #44884, 2 tablet By Mouth 2 times a day,x90 days,Instr:Tej, 165, cm, 11/03/19 18:19:00 EST, Height, 88, kg, 11/03/19 18... Start Date: 02/02/20 Stop Date: 01/27/21 Status: Ordered celecoxib 100 mg oral capsule 1 capsule = 100 mg, By Mouth, 2 times a day, PRN knee pain, # 60 capsule, 5 Refills, Maintenance, 06/26/20 8:22:00 EDT, Capsule, [facility] #57165, 165, cm, 11/03/19 18:19:00 EST, Height, 88, kg, 11/03/19 18:19:00 EST, Dry Weight Start Date: 06/26/20 Status: Ordered citalopram 20 mg oral tablet 20 mg, 1, tablet, By Mouth, Daily, # 90 tablet, Refills 3, Tot. Refills 3, Maintenance, 07/01/20 17:44:00 EDT, Route to Pharmacy Electronically, [facility] #[id number], is awared of interaction w roseannalosec, 165, cm, 11/03/19 18:19:00 EST, He... Start Date: 07/01/20 Status: Ordered Colace sodium 100 mg oral capsule 100 mg, 1, capsule, By Mouth, 2 times a day, PRN, with plenty of water, # 180 capsule, Refills 3, Tot. Refills 3, Maintenance, as needed for constipation, 08/30/19 9:25:00 EST, Route to Pharmacy Electronically, [facility] #[id number], 162.5, cm,... Start Date: 08/30/19 Status: Ordered dilTIAZem 360 mg/24 hours oral tablet, extended release 1 tablet = 360 mg, By Mouth, Daily, # 90 tablet, 3 Refills, Maintenance, 09/05/20 9:01:00 EST, [facility] #[id number], 165, cm, 11/03/19 18:19:00 EST, Height, 88, kg, 11/03/19 18:19:00 EST, Dry Weight Start Date: 09/05/20 Status: Ordered Dulera 200 mcg-5 mcg/inh inhalation aerosol 2 puffs, Inhalation, 2 times a day, # 13 Gm, 11 Refills, Maintenance, 08/10/20 16:21:00 EST, Aerosol, [facility] #40877, 2 puffs Inhalation 2 times a day, 165, cm, 11/03/19 18:19:00 EST, Height, 88, kg, 11/03/19 18:19:00 EST, Dry Weight Start Date: 08/10/20 Status: Ordered EPINEPHrine 0.3 mg injectable solution = 0.3 mg, Intramuscular, Once, PRN Anaphylactic Reaction, # 1 each, 0 Refills, Soft Stop, 06/26/20 8:38:00 EDT, [facility] #35090, 165, cm, 11/03/19 18:19:00 EST, Height, 88, kg, 11/03/19 18:19:00 EST, Dry Weight Start Date: 06/26/20 Status: Ordered fluticasone 50 mcg/inh nasal spray 2 sprays, Nares, Both, Daily, Use every day during allergy season. While using spray keep head down. 30 days not 90 days dispense when patient requested by patient, # 16 Gm, 5 Refills, Maintenance, 06/26/20 8:35:00 EDT, [facility] #[id number]... Start Date: 06/26/20 Status: Ordered hydrALAZINE 10 mg oral tablet 10 mg, 1, tablet, By Mouth, 2 times a day, decrease dose, # 180 tablet, Refills 3, Tot. Refills 3, Maintenance, 06/26/20 8:44:00 EDT, Route to Pharmacy Electronically, [facility] #[id number], 165, cm, 11/03/19 18:19:00 EST, Height, 88, kg, ... Start Date: 06/26/20 Stop Date: 06/21/21 Status: Ordered hydrochlorothiazide-lisinopril 25 mg-20 mg oral tablet 1 tablet, By Mouth, Daily, discontinue HCTZ 12.5/lisnopril 20mg, # 90 tablet, 0 Refills, Maintenance, 08/19/20 11:21:00 EST, Tablet, [facility] #[id number], 90 days, 1 tablet By Mouth Daily,Instr:discontinue HCTZ 12.5/lisnopril 20mg, 165, cm, ... Start Date: 08/19/20 Status: Ordered Incruse Ellipta 62.5 mcg/inh inhalation powder = 62.5 mcg, Inhalation, Every 24 hours, doses should be taken at least 24 hours apart discontinue Tudorza, # 30 each, 5 Refills, Maintenance, 09/19/20 12:24:00 EST, [facility] #[id number], 165, cm, 11/03/19 18:19:00 EST, Height, 88, [...] tablet, 1 Refills, Maintenance, 08/28/20 9:20:00 EST, [facility] #[id number], 165, cm, 11/03/19 18:19:00 EST, Height, 88, kg, 11/03/19 18:19:00 EST, Dry Weight Start Date: 08/28/20 Status: Ordered loratadine 10 mg oral tablet 10 mg, 1, tablet, By Mouth, Daily, PRN, # 90 tablet, Refills 3, Tot. Refills 3, Maintenance, as needed for allergy symptoms, 08/30/19 9:25:00 EST, Route to Pharmacy Electronically, [facility] #[id number], 162.5, cm, 07/25/19 9:45:00 EST, Height,... Start Date: 08/30/19 Status: Ordered metFORMIN 500 mg oral tablet 1 tablet, By Mouth, 2 times a day, # 180 tablet, 3 Refills, Maintenance, 09/16/20 17:27:00 EST, [facility] #73038, 165, cm, 11/03/19 18:19:00 EST, Height, 88, kg, 11/03/19 18:19:00 EST, DryWeight Start Date: 09/16/20 Status: Ordered Unb-gpk-myrxt medical-grade oxford diabetic shoes, depth or hightop Iyv-von-cjpxs medical-grade oxford diabetic shoes, depth or hightop, [...] 1 Refills, Maintenance, 10/04/20 9:38:00 EST, Tablet, [facility] #[id number], 165, cm, 11/03/19 18:19:00 EST, Height, 88, kg, 11/03/19 18:19:00 EST, Dry Weight Start Date: 10/04/20 Status: Ordered Premarin Vaginal 0.625 mg/gm cream with applicator = 0.5 Gm, Vaginally, Every Wednesday and , # 42.5 Gm, 11 Refills, Maintenance, 02/02/20 16:27:00 EDT, [facility] #[id number], discontinue estradiol 10mcg vaginal, 0.5 Gm Vaginally Every Wednesday and , 165, cm, 11/03/19 18:19:00 EST,... Start Date: 02/02/20 Status: Ordered PriLOSEC OTC 20 mg oral delayed release tablet 1 tablet = 20 mg, By Mouth, Daily, Take 30 mins before breakfast, # 90 tablet, 3 Refills, Maintenance, 02/02/20 16:28:00 EDT, [facility] #[id number], is awared of interaction with citalopram,165, cm, 11/03/19 18:19:00 EST, Height, 88, kg,... Start Date: 02/02/20 Status: Ordered Remeron 15 mg oral tablet 0.5 tablet = 7.5 mg, By Mouth, Daily at bedtime, # 45 tablet, 1 Refills, Maintenance, 06/05/20 9:34:00 EDT, Tablet, [facility] #[id number], 165, cm, 11/03/19 18:19:00 EST, Height, 88, [...] 06/28/20 12:31:00 EDT, Route to Pharmacy Electronically, [facility] #[id number], 165, cm, 11/03/19 18:19:00 EST, Height, 88, [...] Gm, 5 Refills, Maintenance, 04/04/20 12:19:00 EDT, [facility] #[id number]... Start Date: 04/04/20 Status: [...] 9, 10, 11, 12, 13 08/09/06 Active *[id number] Care Partn jb Cabrera(Confirmed) Active Prurigo nodularis(Confirmed) 08/17/08 Active Renal insufficiency(Confirmed) Active Non-insulin dependent type 2 diabetes mellitus(Confirmed) 01/24/09 Active Varicose vein(Confirmed) Active Vitamin D deficiency(Confirmed) 07/26/08 Active 1CKD Stage III. 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
--- OUTSIDE RECORDS SUMMARY | 2024-07-06 12:09 | XMS_ITS | Continuity of Care Document ---
Author Organization [facility] Address [address] [place] [address]- Care Team Providers Care Mud Trucker Name Role Phone Marychuy MCCLAIN, Jessica Primary Care Physician [facility] Date[facility] 04/28[facility]21 - 05/28/[address] [address] Attending Physician: Not on Staff, Attending MD Admitting Physician: Not on Staff, Admitting MD Referring Physician: Not on Staff, Referring [...] Give n influenza virus vaccine, inactivated 5 11/16/06 Gi javon tetanus/diphtheria/pertussis, acel(Tdap) 05/21/15 Given pneumococcal [...] to Pharmacy Electronically, [facility] #[id number], 165, cm, 12/25/20 10:00:00 EDT, Height, 88, kg, 11/03/19 18:19:00... Start Date: 03/10/21 Status: Ordered calcium (as citrate)-vitamin D 315 mg-250 intl units oral tablet 2 tablet, By Mouth, 2 times a day, Tej, # 360 tablet, 3 Refills, Maintenance, 03/26/21 13:03:00 EDT, Tablet, [facility] #[id number], 2 tablet By Mouth 2 times a [...] 5 Refills, Maintenance, 03/26/21 13:08:00 EDT, Capsule, [facility] #[id number], 165, cm, 03/26/21 11:57:00 EDT, Height, 88, [...] 07/01/20 17:44:00 EDT, Route to Pharmacy Electronically, [facility] #[id number], is awared of interaction w nicky, 165, cm, 11/03/19 18:19:00 EST, He... Start Date: 07/01/20 Status: Ordered Clarinex 5 mg oral tablet 1 tablet = 5 mg, By Mouth, Daily, Discontinue loratadine, # 30 tablet, 11 Refills, Maintenance, 03/26/21 13:02:00 EDT, Tablet, [facility] #[id number], 165, cm, 03/26/21 11:57:00 EDT, Height, 88,kg, 11/03/19 18:19:00 EST, Dry Weight Start Date: 03/26/21 Status: Ordered Colace sodium 100 mg oral capsule 100 mg, 1, capsule, By Mouth, 2 times a day, PRN, with plenty of water, # 180 capsule, Refills 3, Tot. Refills 3, Maintenance, as needed for constipation, 03/26/21 13:05:00 EDT, Route to Pharmacy Electronically, [facility] #[id number], Dispense o... Start Date: 03/26/21 Status: Ordered [...] tablet, 3 Refills, Maintenance, 09/05/20 9:01:00 EST, [facility] #62854, 165, cm, 11/03/19 18:19:00 EST, Height, 88, kg, 11/03/19 18:19:00 EST, Dry Weight Start Date: 09/05/20 Status: Ordered Dulera 200 mcg-5 mcg/inh inhalation aerosol 2 puffs, Inhalation, 2 times a day, # 13 Gm, 11 Refills, Maintenance, 08/10/20 16:21:00 EST, Aerosol, [facility] #[id number], 2 puffs Inhalation 2 times a day, 165, cm, 11/03/19 18:19:00 EST, Height, 88, kg, 11/03/19 18:19:00 EST, Dry Weight Start Date: 08/10/20 Status: Ordered EPINEPHrine 0.3 mg injectable solution = 0.3 mg, Intramuscular, Once, PRN Anaphylactic Reaction, # 1 each, 0 Refills, Soft Stop, 06/26/20 8:38:00 EDT, [facility] #[id number], 165, cm, 11/03/19 18:19:00 EST, Height, 88, kg, 11/03/19 18:19:00 EST, Dry Weight Start Date: 06/26/20 Status: Ordered fluticasone 50 mcg/inh nasal spray 1 sprays, Nares, Both, 2 times a day, 0 Refills, Maintenance, 04/28/21 2:37:00 EDT, [facility], Partial fill upon patient request if the prescription is for a schedule II opioid drug. Start Date: 04/28/21 Status: Ordered fluticasone 50 mcg/inh nasal spray 2 sprays, Nares, Both, Daily, Use every day during allergy season. While using spray keep head down. 30 days not 90 days dispense when patient requested by patient, # 16 Gm, 5 Refills, Maintenance, 12/30/20 15:00:00 EDT, [facility] #05... Start Date: 12/30/20 Status: Ordered [...] 06/26/20 8:44:00 EDT, Route to Pharmacy Electronically, [facility] #[id number], 165, cm, 11/03/19 18:19:00 EST, Height, 88, kg, 11/03/... Start Date: 06/26/20 Stop Date: 06/21/21 Status: Ordered hydrochlorothiazide-lisinopril 25 mg-20 mg oral tablet 1 tablet, By Mouth, Daily, # 90 tablet, 3 Refills, Maintenance, 12/25/20 11:11:00 EDT, Tablet, [facility] #43576, 90 days, 1 tablet By Mouth Daily, [...] tablet, 1 Refills, Maintenance, 03/04/21 10:16:00 EDT, [facility] #21786, 165, cm, 12/25/20 10:00:00 EDT, Height, 88, [...] tablet, 3 Refills, Maintenance, 09/16/20 17:27:00 EST, [facility] #05752, 165, cm, 11/03/19 18:19:00 EST, Height, 88, [...] Start Date: 04/28/21 Status: Ordered nystatin topical 490100 u/gm powder 1 application, Topically, 2 times a day, # 60 Gm, 1 Refills, Maintenance, 03/26/21 13:25:00 EDT, Powder, [facility] #[id number], Partial fill upon patient request if the prescription is for a schedule II opioid drug., 1 application Topically 2 ti... Start Date: 03/26/21 Status: Ordered Nystop 810222 u/gm powder 1 application, Topically, 2 times a day, # 60 Gm, 0 Refills, Maintenance, 04/28/21 2:38:00 EDT, Powder, Partial fill upon patient request if the prescription is for a schedule II opioid drug. Start Date: 04/28/21 Status: Ordered Boy-wwf-czndn medical-grade oxford diabetic shoes, depth or hightop Mkr-xwh-zqdts medical-grade oxford diabetic shoes, depth or hightop, [...] 3 Refills, Maintenance, 12/25/20 11:15:00 EDT, Tablet, [facility] #[id number], 165, cm, 12/25/20 10:00:00 EDT, Height, 88, [...] Gm, 11 Refills, Maintenance, 03/26/21 13:01:00 EDT, [facility] #[id number], 0.5 Gm Vaginally Every Wednesday and , [...] tablet, 2 Refills, Maintenance, 04/08/21 10:07:00 EDT, [facility] #[id number], MD is awared of interaction with citalopram;Duplicate rx; original sent 12/25/20. Remaining r... Start Date: 04/08/21 Status: Ordered Remeron 15 mg oral tablet 0.5 tablet = 7.5 mg, By Mouth, Daily at bedtime, Decreased dose, # 45 tablet, 3 Refills, Maintenance, 03/26/21 13:13:00 EDT, Tablet, [facility] #[id number], 165, cm, 03/26/21 11:57:00 EDT, Height, 88, [...] 12/25/20 11:14:00 EDT, Route to Pharmacy Electronically, [facility] #[id number], 165, cm, 12/25/20 10:00:00 EDT, Height, 88, [...] Gm, 5 Refills, Maintenance, 03/26/21 13:06:00 EDT, [facility] #[id number]... Start Date: 03/26/21 Status: [...] 9, 10, 11, 12, 13 08/09/06 Active *[id number] Care Partn er Dolorescharly Cabrera(Confirmed) Active Prurigo nodularis(Confirmed) 08/17/08 Active Renal insufficiency(Confirmed) Active Non-insulin dependent type 2 diabetes mellitus(Confirmed) 01/24/09 Active Varicose vein(Confirmed) Active Vitamin D deficiency(Confirmed) 07/26/08 Active 1CKD Stage III. 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
[2024-07-06 12:10] VITALS: BP 139/63; PULSE 82; O2SAT 96
--- NOTE | 2024-07-06 12:10 | A.OFFVIS_ITS ---
Vital Signs 07/06/24 12:10 07/06/24 12:52 BP 139/63 154/84 H Blood Pressure Location Lt brachial Lt brachial Position Sitting Sitting Pulse 82 83 Pulse Source Pulse Oximeter Pulse Oximeter Pulse Oximetry (%) 96 96 Oxygen Delivery Method Room Air Room Air Intake Visit Reasons: Left saphenous Sprint Allergies prednisone Allergy (Verified 06/16/24 08:03) Unknown steroids Allergy (Uncoded 06/16/24 08:03) Anaphylaxis HPI HPI Left saphenous Sprint: Details: Patient presents for scheduled procedure. Denies any recent cough, cold, infection, fever or other significant changes in medical history since last office visit. [facility] Medical History (Updated 12/11/23 @ 08:57 by Jose Sellers MD) Bilateral knee pain Diabetes Hypercholesteremia Asthma Hypertension Surgical History History of appendectomy Surgical history of tubal ligation Physical Exam Vital Signs: Last Vital Signs Pulse 83 07/06/24 12:52 BP 154/84 H 07/06/24 12:52 Pulse Ox 96 07/06/24 12:52 Oxygen Delivery Method Room Air 07/06/24 12:52 Office Procedures Details: Peripheral Nerve Stimulation Temporary Lead Placement, Ultrasound-Guided, Saphenous Nerve, Left ? After the risks, benefits and alternatives were discussed with the patient and informed consentwas obtained, patient was placed in the supine position and padded to foster comfort. Appropriate skin and bony landmarks were identified, and pertinent vascular structures were located. The skin overlying the needle en try site was prepped and draped in sterile fashion. Ultrasound was used to identify the femoral artery, the femoral vein and the saphenous nerve. After identifying and marking the intended target along the course of the saphenous nerve, the skin around the planned entry point and the subcutaneous tissues were injected with local anesthetic. An introducer needle and stimulating probe were assembled, inserted and advanced along the intended course of the saphenous; nerve, taking care to maintain the proper depth of insertion as the introducer was advanced under ultrasound guidance. The introducer needle was delivered to a location in proximity to the nerve taking care not to puncture the femoral artery or the vein. Multiple stimulation parameters were used to deliver stimulation to the saphenous nerve in concert with stimulating at multiple positions around the nerve. Nerve target acquisition was confirmed noting generation of sensory and mild motor effects (paresthesia, muscle tension, etc) in the medial knee, leg and ankle; corresponding to the distribution of the saphenous nerve. Various electrical parameter combinations were tested, and the lead location was adjusted (physically relocated under ultrasound guidance) until the patient indicated medial knee paresthesia and tension overlapping the distribution of the patient?s typical region of pain. The stimulating probe was removed from the introducer and a percutaneous lead was guided through the needle and delivered to a location in similar proximity to the nerve. Final location was verified with electrical stimulation and documented. The introducer needle was removed, and the exposed end of the percutaneous lead was attached to an external stimulator unit. Various electrical parameter combinations were again tested until the patient indicated paresthesia and muscle tension overlapping the distribution of the patient?s typical region of pain. After confirming that lead impedance was in the normal range, the external unit was detached, the needle was removed, and the lead was anchored at the skin. The lead was threaded into the connector block and electrical continuity and desired patient response was confirmed. The connector block was attached to the external stimulator unit. The site was covered with a sterile occlusive dressing. A final ultrasound image was taken to document final placement. The patient was observed for stability of vital signs and comfort. Sprint PNS Device: Sprint PNS Device [id number] Percutaneous Peripheral Neuroelectrode Procedure: 10223 - Percutaneous Peripheral Neuroelectrode Procedure code (CPT) selection complete Office Meds lidocaine HCl 10 mg/mL (1 %) injection solution Performing Provider: Lou Foreman APRN, GAY Performing Location: [facility] Administered by: Carmita Morales LPN on 07/06/24 12:42 Dose Route Admin Location Dispensed Lot Number Expiration Date [facility] [employer] Class 5 mL subcut 5 mL Assessment & Plan Assessment & Plan (1) Bilateral knee pain: Code(s): M25.561 - Pain in right knee; M25.562 - Pain in left knee Category: Medical (2) Localized osteoarthritis of knees, bilateral: Code(s): M17.0 - Bilateral primary osteoarthritis of knee Category: Medical Plan Patient is status post temporary left saphenous nerve stimulator placement. Patient tolerated procedure well and was discharged home in stable condition with discharge instructions. All questions were answered. We will follow-up via telephone or in clinic to assess response to therapy. A follow-up appointment was made during today's visit. Orders: Orders FL guidance in treatment room Today M25.561 - Pain in right knee, M25.562 - Pain in left knee AMB Sprint PNS Today M25.561 - Pain in right knee, M25.562 - Pain in left knee Coding Level of Care Code Procedure Only Diagnoses Bilateral knee pain M25.561; M25.562 Localized osteoarthritis of knees, bilateral M17.0 CPT Codes Sprint PNS - Sprint PNS Device: Sprint PNS Device ([id number]) Sprint PNS - SPRINT: 29320 - Percutaneous Peripheral Neuroelectrode ([id number]) Implantable Device Implantable Device Implantable Devices Qty [employer] Class Implant Date Expiration Date LEAD SYSTEM SPRINT SINGLE PNS 1 10/14/22 07/14/23
[2024-07-06 12:52] VITALS: BP 154/84; PULSE 83; O2SAT 96
== END 2024-07-06 12:47 | disposition home or self-care (01) ==
LOC: HO.PMCPRC 12:00
PROVIDERS: PCP Family Medicine; Visit Provider Internal Medicine
DX: M25.561 Pain in right knee (principal); M25.562 Pain in left knee; M17.0 Bilateral primary osteoarthritis of knee
CPT/HCPCS: 64555

== ENCOUNTER 2024-07-12 10:01 | Outpatient (AMB) | payer OTHER, SELFPAY ==
[2024-07-12 10:07] VITALS: BP 180/81; PULSE 81; O2SAT 97; BMI 28.7
--- NOTE | 2024-07-12 10:07 | A.OFFVIS_ITS ---
Vital Signs 07/12/24 10:07 Height 5 ft 6 in Weight 178 lb BMI 28.7 BP 180/81 H Blood Pressure Location Lt brachial Position Sitting Pulse 81 Pulse Source Pulse Oximeter Pulse Oximetry (%) 97 Oxygen Delivery Method Room Air Intake Visit Reasons: s/p Left saphenous Sprint Allergies prednisone Allergy (Verified 07/12/24 10:08) Unknown steroids Allergy (Uncoded 07/12/24 10:08) Anaphylaxis Medication List - Last Reconciled 07/12/24 by Pretty Mcginnis acetaminophen ER mg PO apixaban (Eliquis) 5 mg PO BID buspirone 15 mg PO BID calcium citrate-vitamin D3 315 mg-6.25 mcg (250 unit) 2 tabs PO BID conjugated estrogens (Premarin) vaginal desloratadine (Clarinex) 5 mg PO DAILY diclofenac sodium 1% topical diltiazem HCl CD 180 mg PO DAILY escitalopram oxalate 10 mg PO DAILY fluticasone propionate 50 mcg/actuation 2 sprays intranasal DAILY PRN hydralazine 25 mg PO TID levothyroxine 50 mcg PO DAILY liraglutide (Victoza 2-Jaspal) 0.6 mg subcut DAILY lisinopril 40 mg PO DAILY mepolizumab (Nucala) mg subcut mirtazapine 7.5 mg PO DAILY montelukast 10 mg PO DAILY pantoprazole 40 mg PO DAILY pravastatin 80 mg PO BEDTIME spironolactone 25 mg PO DAILY 90 days terbinafine HCl 1% 1 appl topical BID HPI Comments Details: Patient presents back to the office today follow up, one-week status post left saphenous nerve Sprint PNS Continues with 8/10 pain. Reports no improvement in her left knee pain since the procedure 1 week ago Walking with a cane. Managing dressing at home with help of her daughter. Managing titration of the stimulation. Prior visit with Dr Archer: 78-year-old female who presents today to the office for follow-up pain in the bilateral knee. Patient is accompanied by her daughter. She would like her daughter to translate for this visit. She had an excellent relief following temporary stimulation of the right peripheral nerve stimulator last year. She states that her right-sided knee pain is stable and not bothersome, but her left side is worse. She wants to proceed with a left-sided peripheral nerve stimulator device for the pain relief. She has tried gel injections with no significant relief. She is allergic to steroids. Past Procedures: 07/06/24: Left saphenous nerve sprint PNS: No relief after 1 week 10/14/22: Right Sprint PNS Implant ? >80% relief for more than 1 year. 05/06/22: Left adductor canal saphenous nerve block, ultrasound-guided: 03/20/22: Right Diagnostic Saphenous NB at Adductor Canal ? 100% pain relief. [facility] Medical History (Updated 12/11/23 @ 08:57 by Jose Sellers MD) Bilateral knee pain Diabetes Hypercholesteremia Asthma Hypertension Surgical History History of appendectomy Surgical history of tubal ligation Review of Systems Const All systems reviewed & are unremarkable except as noted in HPI and below Physical Exam Vital Signs: Last Vital Signs Pulse 81 07/12/24 10:07 BP 180/81 H 07/12/24 10:07 Pulse Ox 97 07/12/24 10:07 Oxygen Delivery Method Room Air 07/12/24 10:07 BMI result Body Mass Index 28.7 General: awake, alert, oriented. Answers questions appropriately. Fully engaged in examination. Skin: warm, dry, intact HEENT: Normocephalic. Hearing intact. Cardiac: External chest normal in appearance. Respiratory: No cough, audible wheezing or stridor. Abdomen: without gross distension. MS: No obvious swelling or deformities. Neurological: Oriented to person, place, time and situation. Thought process intact. No gait abnormalities appreciated. Psychiatric: Appropriate mood and affect. Good judgment and insight. Sprint dressing change: Existing dressing removed, Area cleansed with chloraprep. Site dry, clean without redness, swelling, warmth, bruising or drainage. Lead secure device removed. Area cleansed again with chloraprep, once dry skin barrier protectant wipe applied. New lead secure device applied, tegaderm applied. Patient tolerated procedure well. Assessment & Plan Assessment & Plan (1) Bilateral knee pain: Code(s): M25.561 - Pain in right knee; M25.562 - Pain in left knee Category: Medical (2) Localized osteoarthritis of knees, bilateral: Code(s): M17.0 - Bilateral primary osteoarthritis of knee Category: Medical Plan Patient presents the office today, accompanied by her daughter, for follow-up one-week status post left saphenous nerve sprint PNS Dressing was changed as per above Tolerating well, managing dressing changes and stimulation titration difficulty Lengthy discussion today with patient and her daughter regarding expectations and outcomes. She was advised that it can take a couple weeks before she will notice improvement. All questions and concerns were answered, patient agrees with the plan. Follow up as scheduled or sooner if needed Coding Level of Care Code Est Pt Level 3 (05867) Complex EM visit Add On G2211 Diagnoses Bilateral knee pain M25.561; M25.562 Localized osteoarthritis of knees, bilateral M17.0
== END 2024-07-12 10:24 | disposition home or self-care (01) ==
LOC: HO.PMC 10:02
PROVIDERS: PCP Family Medicine; Visit Provider Registered Nurse Emergency
DX: M25.561 Pain in right knee (principal); M25.562 Pain in left knee; M17.0 Bilateral primary osteoarthritis of knee
CPT/HCPCS: 99024

== ENCOUNTER → 2024-07-12 10:01 | Outpatient (BNVA) | payer OTHER, SELFPAY | PROVIDERS: PCP Family Medicine; Visit Provider Registered Nurse Emergency | DX: M17.0 Bilateral primary osteoarthritis of knee (principal); Z96.82 Presence of neurostimulator | CPT/HCPCS: 99212 ==

== ENCOUNTER 2024-08-30 09:21 | Outpatient (AMB) | payer OTHER, SELFPAY ==
[2024-08-30 09:50] VITALS: BP 166/70; PULSE 81; RESP 15; O2SAT 95; BMI 28.7
--- NOTE | 2024-08-30 09:50 | MHC.OFFVIS ---
Vital Signs 08/30/24 09:50 Height 5 ft 6 in Weight 178 lb BMI 28.7 BP 166/70 H Blood Pressure Location Lt brachial Position Sitting Respiration 15 Pulse 81 Pulse Source Pulse Oximeter Pulse Oximetry (%) 95 Oxygen Delivery Method Room Air Intake Visit Reasons: Sprint removal Audograph Operator Required: Yes Audograph Operator Services: Audograph Operator Offered & Declined Audograph Operator Name: Prefers granddaughter to trans Allergies prednisone Allergy (Verified 08/30/24 09:52) Unknown steroids Allergy (Uncoded 08/30/24 09:52) Anaphylaxis Medication List - Last Reconciled 08/30/24 by Carmita Morales LPN acetaminophen ER mg PO apixaban (Eliquis) 5 mg PO BID buspirone 15 mg PO BID calcium citrate-vitamin D3 315 mg-6.25 mcg (250 unit) 2 tabs PO BID conjugated estrogens (Premarin) vaginal desloratadine (Clarinex) 5 mg PO DAILY diclofenac sodium 1% topical diltiazem HCl CD 180 mg PO DAILY escitalopram oxalate 10 mg PO DAILY fluticasone propionate 50 mcg/actuation 2 sprays intranasal DAILY PRN hydralazine 25 mg PO TID levothyroxine 50 mcg PO DAILY liraglutide (Victoza 2-Jaspal) 0.6 mg subcut DAILY lisinopril 40 mg PO DAILY mepolizumab (Nucala) mg subcut mirtazapine 7.5 mg PO DAILY montelukast 10 mg PO DAILY pantoprazole 40 mg PO DAILY pravastatin 80 mg PO BEDTIME spironolactone 25 mg PO DAILY 90 days terbinafine HCl 1% 1 appl topical BID HPI HPI Sprint removal: Details: 78-year-old female who presents to the office today for sprint removal. Patient is accompanied by her daughter. She would like her daughter to translate for this visit. She reports that she was feeling the pain that she had before for the first 2 weeks; however, this improved eventually. Past Procedures: 07/06/24: Left saphenous nerve sprint PNS: More than 80% relief 10/14/22: Right Sprint PNS Implant ? >80% relief for more than 1 year. 05/06/22: Left adductor canal saphenous nerve block, ultrasound-guided: 03/20/22: Right Diagnostic Saphenous NB at Adductor Canal ? 100% pain relief. [facility] Medical History (Updated 12/11/23 @ 08:57 by Jose Sellers MD) Bilateral knee pain Diabetes Hypercholesteremia Asthma Hypertension Surgical History History of appendectomy Surgical history of tubal ligation Review of Systems Const All systems reviewed & are unremarkable except as noted in HPI and below Physical Exam Vital Signs: Last Vital Signs Pulse 81 08/30/24 09:50 Resp 15 08/30/24 09:50 BP 166/70 H 08/30/24 09:50 Pulse Ox 95 08/30/24 09:50 Oxygen Delivery Method Room Air 08/30/24 09:50 BMI result Body Mass Index 28.7 General: Appears afebrile. Alert and oriented. Mood and affect appropriate. Follows and participates in conversation appropriately. Respiratory effort is unlabored. Able to transition from sit to stand unassisted. Ambulates with bilaterally normal heel strike and toe off. Results Reviewed Results Reviewed: No imaging is available for review. Assessment & Plan Assessment & Plan (1) Bilateral knee pain: Code(s): M25.561 - Pain in right knee; M25.562 - Pain in left knee Category: Medical Plan Patient presented for PNS lead removal today. Lead site is intact, no redness, no pathological discharge, no signs of infection noted. Pt came in with Sprint dressing intact. Dressing taken down, site clean and wire intact, no redness/drainage noted, lead removed without incidence. Follow-up as needed. Scribed for Dr. Archer by Siddharth medical information officer, on 08/30/2024. I, Dr. Archer, have personally reviewed and agree with the information entered by the scribe. Coding Level of Care Code Est Pt Level 3 (86622) Diagnoses Bilateral knee pain M25.561; M25.562
== END 2024-08-30 10:02 | disposition home or self-care (01) ==
PROVIDERS: PCP Family Medicine; Visit Provider Internal Medicine
DX: M25.561 Pain in right knee (principal); M25.562 Pain in left knee
CPT/HCPCS: 99213

== ENCOUNTER → 2024-08-30 09:21 | Outpatient (BNVA) | payer OTHER, SELFPAY | PROVIDERS: PCP Family Medicine; Visit Provider Internal Medicine | DX: M25.561 Pain in right knee (principal); M25.562 Pain in left knee | CPT/HCPCS: 99212 ==

== ENCOUNTER 2024-12-14 12:03 | Outpatient (REF) | payer OTHER, SELFPAY ==
--- OUTSIDE RECORDS SUMMARY | 2024-12-14 14:10 | XMS_ITS | Clinical Summary ---
Author Organization [facility] Facility Address [address] [place] [address] Care Team Providers Care Upstream Biomanufacturing Technician Name Role Phone Jessica Perrin MD Primary [...] patient's age to complete this topic Insurance [facility] ([id number]) [place] [id number] [facility] ([id number]) [place] [id number] Care Teams Upstream Biomanufacturing Technician Relationship Specialty Start Date End Date Jessica Perrin MD [address] PCP - General Family Medicine 10/01/22
[2024-12-14 18:01] LABS: Anion Gap 13 (12-20); Blood Urea Nitrogen 12 mg/dL (9-16); Carbon Dioxide 30 mmol/L (22-29); Chloride 104 mmol/L (96-108); Estimated Glomerular Filt Rate > 60; Sodium 143 mmol/L (135-145)
== END 2024-12-14 12:04 | disposition home or self-care (01) ==
LOC: HO.HKASLDS 12:03
PROVIDERS: PCP Family Medicine; Visit Provider Internal Medicine Nephrology
DX: I10 Essential (primary) hypertension (principal); I70.1 Atherosclerosis of renal artery
CPT/HCPCS: 36415; 80051; 82565; 84520; 99212

== ENCOUNTER 2024-12-14 12:03 | Outpatient (AMB) | payer OTHER, SELFPAY ==
--- NOTE | 2024-12-14 12:16 | HO.NEPHOV_ITS ---
Vital Signs 12/14/24 12:19 Height 5 ft 6 in Weight 185 lb 8 oz BMI 29.9 BP 120/70 Blood Pressure Location Lt brachial Position Sitting Pulse 73 Pulse Source Pulse Oximeter Pulse Oximetry (%) 96 Oxygen Delivery Method Room Air Intake Visit Reasons: 6 mon follow up-[facility] Chief Clinical Dietitian Required: No Accompanied by: Daughter Allergies prednisone Allergy (Verified 12/14/24 12:18) Unknown steroids Allergy (Uncoded 08/30/24 09:52) Anaphylaxis HPI Comments Details: Anneliese was seen in follow-up for mild left renal artery stenosis and hypertension. She has H/O hypertensive urgency. She is a diabetic and blood sugars are fairly better control. She has been on multiple antihypertensive medications and her blood pressure is at goal at home . She has no history of coronary artery disease, CVA, CHF or PAD. She denies any chest pain, shortness of breath, proximal nocturnal dyspnea, orthopnea, orthostatic symptoms, urinary symptoms. She has no pedal edema. She is compliant with her medications. She does not consume excess salt. She currently feels well [facility] Medical History (Updated 12/11/23 @ 08:57 by Jose Sellers MD) Bilateral knee pain Diabetes Hypercholesteremia Asthma Hypertension Surgical History History of appendectomy Surgical history of tubal ligation Review of Systems Const All systems reviewed & are unremarkable except as noted in HPI and below Physical Exam Vital Signs: Last Vital Signs Pulse 73 12/14/24 12:19 BP 150/70 H 12/14/24 12:19 Pulse Ox 96 12/14/24 12:19 Oxygen Delivery Method Room Air 12/14/24 12:19 BMI result Body Mass Index 29.9 Const General: comfortable and no acute distress Orientation/consciousness: patient oriented x3 HEENT Head: Yes normocephalic Mouth: Normal oral and palatal mucosa present Eyes EOM: EOMs intact bilaterally Neck Neck: Yes supple Resp Auscultation: clear to auscultation bilaterally Cardio Jugular venous distension: no JVD Rate: regular rate GI Palpation (GI): Soft to palpation Auscultation: normal bowel sounds Skin General skin exam: no rashes or lesions noted Neuro General: patient oriented x3 and moves all extremities Extrem General: Yes no pedal edema Results Reviewed Nephrology Results: No Data to Display Assessment & Plan Assessment & Plan (1) Hypertension: Code(s): I10 - Essential (primary) hypertension Category: Medical Qualifiers: Hypertension type: primary hypertension Qualified Code(s): I10 - Essential (primary) hypertension (2) Renal artery stenosis, [place]: Code(s): I70.1 - Atherosclerosis of renal artery Category: Medical Plan Anneliese is known to have longstanding hypertension. She was found to have mild left renal artery stenosis. She has H/O hypertensive urgency. Her blood pressure is well controlled now. She has no orthostasis. Her renal functions are at baseline. She tries to cut back on her salt intake. She does not have any hypervolemia. She needs to lose some weight. I shall order repeat Doppler of renal arteries after next visit . She is on statins. I did not make any medi cation changes today. All her and her daughter's questions were answered. Follow-up blood work ordered for today. Orders: Orders Creatinine Today I10 - Essential (primary) hypertension Blood Urea Nitrogen Today I10 - Essential (primary) hypertension Electrolytes Today I10 - Essential (primary) hypertension Medications: New diltiazem HCl CD 180 mg (1/2 x 360 mg) PO DAILY 90 caps 3RF lisinopril 40 mg PO DAILY 90 tabs 3RF Changed From hydralazine 25 mg PO TID To hydralazine 25 mg PO TID 90 days 270 tabs 3RF Refilled spironolactone 25 mg PO DAILY 90 tabs 4RF Coding Level of Care Code Est Pt Level 4 (18588) Diagnoses Primary hypertension I10 Hypertension type: primary hypertension Renal artery stenosis, [place] I70.1
[2024-12-14 12:19] VITALS: BP 120/70; PULSE 73; O2SAT 96; BMI 29.9
--- OUTSIDE RECORDS SUMMARY | 2024-12-14 13:19 | XMS_ITS | Clinical Summary ---
Author Organization [facility] Facility Address [address] [place] [id number] Care Team Providers Care Engineering Secretary Name Role Phone Jessica Perrin MD Primary Care Provider Allergies Active Allergy Reactions Criticality Noted Date Comments Dexamethasone Swelling 10/01/2022 Methylprednisolone 03/08/2010 Other reaction(s): Increase blood pressure inmediately after ingesting it w SOB, vomits and dizziness Prednisone Rash Low 11/11/2011 Not associated with swelling nor shortness of breath Tramadol 01/27/2008 Other reaction(s): Itch Medications acetaminophen (TYLENOL) 500 MG tablet Take 500 mg by mouth every 6 (six) hours if needed for mild pain Active budesonide (PULMICORT) 0.5 MG/2ML nebulizer solution Take 0.5 mg by nebulization 1 (one) time each day Rinse mouth with water after use to reduce aftertaste and incidence of candidiasis. Do not swallow. Active citalopram (CeleXA) 20 MG tablet Take 20 mg by mouth 1 (one) time each day Active desloratadine (CLARINEX) 5 MG tablet Take 5 mg by mouth 1 (one) time each day Active fluticasone (FLONASE) 50 MCG/ACT nasal spray Administer 1 spray into each nostril 1 (one) time each day Active levothyroxine (SYNTHROID, LEVOTHROID) 50 MCG tablet Take 50 mcg by mouth 1 (one) time each day Active lisinopril 40 MG tablet Take 40 mg by mouth 1 (one) time each day Active dilTIAZem LA (CARDIZEM LA) 360 MG 24 hr tablet Take 180 mg by mouth 1 (one) time each day Active metFORMIN (FORTAMET) 500 MG 24 hr tablet Take 500 mg by mouth 1 (one) time each day with dinner Do not crush, chew, or split. Active mirtazapine (REMERON) 15 MG tablet Take 7.5 mg by mouth every night Active montelukast (SINGULAIR) 10 MG tablet Take 10 mg by mouth every night Active omeprazole (PriLOSEC) [address] capsule Take 20 mg by mouth 1 (one) time each day Do not crush or chew. Active pravastatin (PRAVACHOL) 80 MG tablet Take 80 mg by mouth 1 (one) time each day Active Calcium Carb-Cholecalci ferol 600-10 MG-MCG tablet Take 2 tablets by mouth 2 (two) times a day 2 Active formoterol (PERFOROMIST) 20 MCG/2ML nebulizer solution INHALE THE CONTENTS OF 1 VIAL USING A CONTINUOUS FLOW NEBULIZER TWICE DAILY 2 Active Premarin 0.625 MG/GM cream APPLY 1/2 GRAM IN THE VAGINA EVERY WEDNESDAY AND WEDNESDAY Active albuterol (2.5 MG/3ML) 0.083% nebulizer solution INHALE 3ML VIA NEBULIZER EVERY 6 HOURS 2 Active hydrALAZINE 25 MG tablet Take 50 mg by mouth in the morning and 50 mg in the evening. 3 Active spironolactone (Aldactone) 25 MG tablet Take 1 tablet (25 mg total) by mouth 1 (one) time each day 30 tablet 11 3 Active cetirizine (ZyrTEC) 10 MG tablet TAKE 1 TABLET BY MOUTH EVERY NIGHT AT BEDTIME FOR ITCH 3 Active Active Problems Problem Noted Date Diagnosed Date Severe obesity 01/26/2023 Allergic rhinitis 10/01/2022 Anxiety disorder 10/01/2022 Atrophic vaginitis 10/01/2022 Depressive disorder 10/01/2022 Hypothyroidism 10/01/2022 Insomnia 10/01/2022 Mixed hyperlipidemia 10/01/2022 Neuropathy due to diabetes mellitus 10/01/2022 Obese class I 10/01/2022 Osteoarthritis of knee 10/01/2022 Patient care statuses 10/01/2022 Type 2 diabetes mellitus 10/01/2022 Venous varices 10/01/2022 Hypertension 10/01/2022 Essential (primary) hypertension 09/30/2022 Obstructive sleep apnea syndrome 12/27/2017 Overview (10/01/2022): Mild obstructive sleep apnea per home sleep study on December 27, 2017 Peripheral angiopathy due to diabetes mellitus 0 12/25/2014 Osteopenia 08/09/2006 Overview (10/01/2022): DEXA 06/03/18 AP Spine (L2, L3, L4) -2.1 Osteopenia Femoral Neck (Left) -0.5 Normal Total Hip (Left) 1.2 Normal Total Forearm (Left) -1.0Correction of DEXA 02/08/15 AP Spine (L1-L4) -2.1 Osteopenia Femoral Neck (Left) -0.9 Normal Total Hip (Left) 1.2 Normalnormal DEXA 02/08/15DEXA 12/20/12 osteopenia AP spine - ,1.8 normal total hip 0.5 , normal femoral neck-0.7DEXA 10/19/08 osteopenia AP lumbar spine - 2.4, normal total proximal femur 0.7, osteopenia femoral neck -1.7DEXA 08/09/06 Osteopenia AP lumbar spine -1.6, femoral neck 0, normal proximal femur 0.8 Immunizations Name Administration Dates Next Due Pfizer SARS-COV-2 06/23/2021,11/16/2020,10/26/19 21 Pneumococcal Conjugate 13-Valent 12/25/2014 Pneumococcal Polysaccharide 11/20/2010, 9 Shingrix 06/04/2020,10/27/2019 Td, Unspecified 11/20/2010 Tdap 05/21/2015 Zoster 11/21/2012 Family History Medical History Relation Comments Cancer Brother Heart disease Father Hypertension Father Stroke Father Hypertension Mother Relation Status Comments Brother Father Mother Social History Tobacco Use Types Packs/Day Years Used Date Smoking Tobacco: Never Smokeless Tobacco: Never Tobacco Cessation:Counseling Given: Not Answered Alcohol Use Standard Drinks/Week Comments Never 0 (1 standard drink = 0.6 oz pur e alcohol) Comments Unknown Sex and Gender Information Value Date Recorded Sex Assigned at Not on file Legal Sex Female 4:46 PM EST Gender Identity Not on file Sexual Orientation Not on file Last Filed Vital Signs Vital Sign Reading Time Taken Comments Blood Pressure 128/70 03/11/2023 3:44 PM EDT Pulse 71 03/11/2023 3:44 PM EDT Temperature - - Respiratory Rate - - Oxygen Saturation 97% 01/26/2023 9:42 AM EDT Inhaled Oxygen Concentration - - Weight 88.4 kg (194 lb 12.8 oz) 03/11/2023 3:44 PM EDT Height - - Body Mass Index - - Plan of Treatment Health Maintenance Due Date Last Done Comments Diabetes: Hemoglobin A1C 10/01/2022 Diabetes: Ophthalmology Exam 10/01/2022 Diabetes: Pedal Pulse Checked 10/01/2022 Diabetes: Sensory Foot Exam 10/01/2022 Diabetes: Visual Foot Exam 10/01/2022 Influenza Vaccine (#1) 2024 Pneumococcal Vaccine: 65+ Years Completed 12/25/2014, 11/20/2010, 08/13/1999 Hepatitis B Vaccine Aged Out No longe r eligible based on patient's age to complete this topic Insurance [facility] ([id number]) [place] [id number] [facility] ([id number]) [place] [id number] Care Teams Engineering Secretary Relationship Specialty Start Date End Date Jessica Perrin MD [address] PCP - General Family Medicine 10/01/22
== END 2024-12-14 12:42 | disposition home or self-care (01) ==
LOC: HO.HKAS 12:03
PROVIDERS: PCP Family Medicine; Visit Provider Internal Medicine Nephrology
DX: I10 Essential (primary) hypertension (principal); I70.1 Atherosclerosis of renal artery
CPT/HCPCS: 99214

== ENCOUNTER 2025-01-19 09:15 | Outpatient (AMB) | payer OTHER, SELFPAY ==
--- NOTE | 2025-01-19 09:30 | MHC.OFFVIS ---
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 Registrar Name: Prefers daughter to translate Allergies prednisone Allergy (Verified 01/19/25 09:32) Unknown Medication List - Last Reconciled 01/19/25 by Carmita Morales LPN acetaminophen ER mg PO albuterol sulfate 90 mcg/actuation 2 puffs inhalation Q6H PRN apixaban (Eliquis) 5 mg PO BID buspirone 15 mg PO BID calcium citrate-vitamin D3 315 mg-6.25 mcg (250 unit) 2 tabs PO BID conjugated estrogens (Premarin) vaginal desloratadine (Clarinex) 5 mg PO DAILY diltiazem HCl CD 180 mg PO DAILY escitalopram oxalate 10 mg PO DAILY fluticasone propionate 50 mcg/actuation 2 sprays intranasal DAILY PRN hydralazine 25 mg PO TID 90 days levothyroxine 50 mcg PO DAILY liraglutide 0.6 mg subcut DAILY lisinopril 40 mg PO DAILY mepolizumab (Nucala) mg subcut metoprolol succinate ER 25 mg PO DAILY montelukast 10 mg PO DAILY pantoprazole 40 mg PO DAILY pravastatin 80 mg PO BEDTIME spironolactone 25 mg PO DAILY HPI HPI LEFT KNEE PAIN: Details: History of Present Illness The patient is an 79-year-old female presenting with left knee pain. The left knee pain returned after previously having successful treatment with a peripheral nerve stimulator that provided more than a year of relief. She described the pain as originating in the knee with possible radiation due to nerve or spine issues. Tylenol has been ineffective for managing her discomfort. Similar management was successfully applied to the patient's right knee, and non-invasive treatments are preferred. Comorbid conditions include high blood pressure and GERD, with adjustments being considered for pain management with Celebrex. There is no current plan for invasive surgery such as knee replacement, and the patient prefers conservative treatment options. Pain Description - Onset and Timing: Left knee pain has returned after more than a year of relief from previous nerve stimulator placement. - Quality and Character: Localized knee pain with possible radiation due to underlying issues in the back or nerve compression. - Primary Location: Left knee. - Areas of Radiation: Suggests possible back or nerve involvement. - Exacerbating Factors: Ineffectiveness of Tylenol. - Relieving Factors: Successful past treatment with peripheral nerve stimulator. - Functions Affected: General daily functioning impacted by pain; preference for non-invasive treatment indicates wish to maintain independence. Physical Exam - Appears afebrile. - Alert and oriented. - Mood and affect appropriate. - Follows and participates in conversation appropriately. - Respiratory effort is unlabored. - Able to transition from sit to stand unassisted. - Ambulates with bilaterally normal heel strike and toe off. - Able to stand and walk on toes and heels. Pain Management - Affect: Pain has affected daily activities and general well-being. - Analgesia: Currently using Tylenol with minimal relief. Considering Celebrex for pain management. - Adverse Effects: Concerns about blood pressure rise with Tylenol and potential impact of Celebrex. - Activities of Daily Living: Pain interferes with daily functioning and she prefers non-invasive management to maintain independence. - Aberrant Drug-Related Behaviors: No signs of medication misuse or early refills. [facility] Medical History (Updated 12/11/23 @ 08:57 by Jose Sellers MD) Bilateral knee pain Diabetes Hypercholesteremia Asthma Hypertension Surgical History History of appendectomy Surgical history of tubal ligation Physical Exam Vital Signs: Last Vital Signs Pulse 77 01/19/25 09:31 Resp 16 01/19/25 09:31 BP 194/75 H 01/19/25 09:31 Pulse Ox 96 01/19/25 09:31 Oxygen Delivery Method Room Air 01/19/25 09:31 BMI result Body Mass Index 29.9 Assessment & Plan Assessment & Plan (1) Bilateral knee pain: Code(s): M25.561 - Pain in right knee; M25.562 - Pain in left knee Category: Medical Plan Plan - Proceed with the placement of a left saphenous nerve stimulator given past effective management of knee pain with PNS providing >80% relief for >1 year. - Prescribe Celebrex, monitor blood pressure impact, considering patient's hypertension history. - Continue GERD management with omeprazole and monitor symptoms. - Ensure careful review of medication interactions for safe ongoing pain management. - Educate the patient about monitoring pain and when to seek immediate care. Patient was informed and verbally consented to the use of an ambient scribe for clinic note documentation during this visit. Discussion Notes During this visit, I discussed the recurrence of knee pain and the options available to the patient. We reviewed her successful past response to the peripheral nerve stimulator for knee pain, and given her desire to avoid invasive procedures, we discussed repeating the saphenous nerve stimulator placement. The benefits and risks of using Celebrex for pain management were covered, including monitoring her hypertensive status. I emphasized the importance of reporting any adverse effects or significant changes in her condition. We also touched on the ongoing management of her GERD. I encouraged the patient to remain vigilant regarding her symptoms and to contact healthcare services if her condition worsens. Patient Instructions - Proceed with scheduling for the left saphenous nerve stimulator placement. - Avoid combining Celebrex with Eliquis. - Continue taking omeprazole for GERD as instructed. - Monitor pain levels and seek medical attention if pain significantly worsens. - Report any new symptoms or side effects from medications to a healthcare provider immediately. Medications: New celecoxib 100 mg PO BID PRN 60 caps 0RF pain Coding Level of Care Code Est Pt Level 3 (94082) Diagnoses Bilateral knee pain M25.561; M25.562
--- OUTSIDE RECORDS SUMMARY | 2025-01-19 09:30 | XMS_ITS | Clinical Summary ---
Author Organization [facility] Facility Address [address] [place] [address] Care Team Providers Care Filler Operator Name Role Phone Jessica Perrin MD Primary [...] neck 0, normal proximal femur 0.8 Immunizations Immunization Administration Dates Next Due Pfizer SARS-COV-2 06/23/2021,11/16/2020,10/26/19 [...] Diabetes: Visual Foot Exam 10/01/2022 Influenza Vaccine (Season Ended) 2025 Pneumococcal Vaccine: 50+ Years Completed 12/25/2014, 11/20/2010, 08/13/1999 Pneumococcal Vaccine: Peds ( 0 to 5 Years) and At-Risk Patients (6 to 49 Years) Discontinued 12/25/2014, 11/20/2010, 08/13/1999 Hepatitis B Vaccine Aged Out No longe r eligible based on patient's age to complete this topic Insurance ([id number]) [place] [id number] [place] [address] ([id number]) [place] [id number] Care Teams Filler Operator Relationship Specialty Start Date End Date Jessica Perrin MD [address] PCP - General Family Medicine 10/01/22
[2025-01-19 09:31] VITALS: BP 194/75; PULSE 77; RESP 16; O2SAT 96; BMI 29.9
== END 2025-01-19 09:57 | disposition home or self-care (01) ==
LOC: HO.PMC 09:16
PROVIDERS: PCP Family Medicine; Visit Provider Internal Medicine
DX: M25.561 Pain in right knee (principal); M25.562 Pain in left knee
CPT/HCPCS: 99213

== ENCOUNTER → 2025-01-19 09:15 | Outpatient (BNVA) | payer OTHER, SELFPAY | PROVIDERS: PCP Family Medicine; Visit Provider Internal Medicine | DX: M25.562 Pain in left knee (principal); M25.561 Pain in right knee | CPT/HCPCS: 99212 ==

== ENCOUNTER 2025-03-08 06:19 | Outpatient (REF) | payer OTHER, SELFPAY ==
--- OUTSIDE RECORDS SUMMARY | 2025-03-08 06:21 | XMS_ITS | Clinical Summary ---
Author Organization [facility] Facility Address [address] [place] [address] Care Team Providers Care Weekend Anchor Name Role Phone Jessica Perrin MD Primary [...] complete this topic Insurance ([id number]) [place] [id number] [place] [address] ([id number]) [place] [id number] Care Teams Weekend Anchor Relationship Specialty Start Date End Date Jessica Perrin MD [address] PCP - General Family Medicine 10/01/22
== END 2025-03-08 06:20 | disposition home or self-care (01) ==
LOC: CF 06:19
PROVIDERS: Visit Provider Internal Medicine
DX: M25.561 Pain in right knee (principal); M17.0 Bilateral primary osteoarthritis of knee
CPT/HCPCS: 64555; C1778; J2003

== ENCOUNTER 2025-03-08 10:40 | Outpatient (AMB) | payer OTHER, SELFPAY ==
[2025-03-08 10:52] VITALS: BP 176/73; PULSE 82; RESP 16; O2SAT 96; BMI 29.9
--- NOTE | 2025-03-08 10:52 | A.OFFVIS_ITS ---
Vital Signs 03/08/25 10:52 03/08/25 10:56 Height 5 ft 6 in 5 ft 6 in Weight 185 lb 185 lb BMI 29.9 29.9 BP 176/73 H 208/86 H Blood Pressure Location Lt brachial Lt brachial Position Sitting Sitting Respiration 16 16 Pulse 82 77 Pulse Source Pulse Oximeter Pulse Oximeter Pulse Oximetry (%) 96 95 Oxygen Delivery Method Room Air Room Air Intake Visit Reasons: Left saphenous Sprint Allergies prednisone Allergy (Verified 03/12/25 09:45) Unknown HPI HPI Left saphenous Sprint: Details: Patient presents for scheduled procedure. Denies any recent cough, cold, infection, fever or other significant changes in medical history since last office visit. [facility] Medical History (Updated 12/11/23 @ 08:57 by Jose Sellers MD) Bilateral knee pain Diabetes Hypercholesteremia Asthma Hypertension Surgical History History of appendectomy Surgical history of tubal ligation Physical Exam Vital Signs: Last Vital Signs Pulse 77 03/08/25 10:56 Resp 16 03/08/25 10:56 BP 208/86 H 03/08/25 10:56 Pulse Ox 95 03/08/25 10:56 Oxygen Delivery Method Room Air 03/08/25 10:56 BMI result Body Mass Index 29.9 Office Procedures Details: Peripheral Nerve Stimulation Temporary Lead Placement, Ultrasound-Guided, Saphenous Nerve, Left ? After the risks, benefits and alternatives were discussed with the patient and informed consentwas obtained, patient was placed in the supine position and padded to foster comfort. Appropriate skin and bony landmarks were identified, and pertinent vascular structures were located. The skin overlying the needle entry site was prepped and draped in sterile fashion. Ultrasound was used to identify the femoral artery, the femoral vein and the saphenous nerve. After identifying and marking the intended target along the course of the saphenous nerve, the skin around the planned entry point and the subcutaneous tissues were injected with local anesthetic. An introducer needle and stimulating probe were assembled, inserted and advanced along the intended course of the saphenous nerve, taking care to maintain the proper depth of insertion as the introducer was advanced under ultrasound guidance. The introducer needle was delivered to a location in proximity to the nerve taking care not to puncture the femoral artery or the vein. Multiple stimulation parameters were used to deliver stimulation to the saphenous nerve in concert with stimulating at multiple positions around the nerve. Nerve target acquisition was confirmed noting generation of sensory and mild motor effects (paresthesia, muscle tension, etc) in the medial knee, leg and ankle; corresponding to the distribution of the saphenous nerve. Various electrical parameter combinations were tested, and the lead location was adjusted (physically relocated under ultrasound guidance) until the patient indicated medial knee paresthesia and tension overlapping the distribution of the patient?s typical region of pain. The stimulating probe was removed from the introducer and a percutaneous lead was guided through the needle and delivered to a location in similar proximity to the nerve. Final location was verified with electrical stimulation and documented. The introducer needle was removed, and the exposed end of the percutaneous lead was attached to an external stimulator unit. Various electrical parameter combinations were again tested until the patient indicated paresthesia and muscle tension overlapping the distribution of the patient?s typical region of pain. After confirming that lead impedance was in the normal range, the external unit was detached, the needle was removed, and the lead was anchored at the skin. The lead was threaded into the connector block and electrical continuity and desired patient response was confirmed. The connector block was attached to the external stimulator unit. The site was covered with a sterile occlusive dressing. A final ultrasound image was taken to document final placement. The patient was observed for stability of vital signs and comfort. Sprint PNS Device: Sprint PNS Device [id number] Percutaneous Peripheral Neuroelectrode Procedure: 97591 - Percutaneous Per ipheral Neuroelectrode Procedure code (CPT) selection complete Office Meds lidocaine HCl 10 mg/mL (1 %) injection solution Performing Provider: Lou Foreman APRN, BEDSPREAD CUTTER HAND Performing Location: [facility] Administered by: Isael Archer MD on 03/15/25 10:09 Dose Route Admin Location Dispensed Lot Number Expiration Date ND Hide Mill Worker 5 mL subcut 5 mL Total Dispensed Waste 5 mL 0 % Assessment & Plan Assessment & Plan (1) Bilateral knee pain: Code(s): M25.561 - Pain in right knee; M25.562 - Pain in left knee Category: Medical (2) Localized osteoarthritis of knees, bilateral: Code(s): M17.0 - Bilateral primary osteoarthritis of knee Category: Medical Plan Patient is status post left temporary saphenous nerve stimulator placement. Patient tolerated procedure well and was discharged home in stable condition with discharge instructions. All questions were answered. We will follow-up via telephone or in clinic to assess response to therapy. A follow-up appointment was made during today's visit. Orders: Orders US guide needle placement 03/01/25 M17.0 - Bilateral primary osteoarthritis of knee AMB Sprint PNS 03/08/25 M25.561 - Pain in right knee, M25.562 - Pain in left knee Coding Level of Care Code Procedure Only Diagnoses Bilateral knee pain M25.561; M25.562 Localized osteoarthritis of knees, bilateral M17.0 CPT Codes Sprint PNS - Sprint PNS Device: Sprint PNS Device ([id number]) Sprint PNS - SPRINT: 21176 - Percutaneous Peripheral Neuroelectrode ([id number]) Implantable Device Implantable Device Implantable Devices Qty Hide Mill Worker Implant Date Expiration Date Analgesic PENS system 1 [employer] 03/08/25
[2025-03-08 10:56] VITALS: BP 208/86; PULSE 77; RESP 16; O2SAT 95; BMI 29.9
== END 2025-03-08 12:16 | disposition home or self-care (01) ==
LOC: HO.PMCPRC 10:40
PROVIDERS: PCP Family Medicine; Visit Provider Internal Medicine
DX: M25.561 Pain in right knee (principal); M25.562 Pain in left knee; M17.0 Bilateral primary osteoarthritis of knee
CPT/HCPCS: 64555

== ENCOUNTER 2025-03-12 09:40 | Outpatient (AMB) | payer OTHER, SELFPAY ==
[2025-03-12 09:44] VITALS: BP 147/63; PULSE 75; RESP 16; O2SAT 96; BMI 30.5
--- NOTE | 2025-03-12 09:44 | MHC.OFFVIS ---
Vital Signs 03/12/25 09:44 Height 5 ft 6 in Weight 189 lb BMI 30.5 BP 147/63 H Blood Pressure Location Lt brachial Position Sitting Respiration 16 Pulse 75 Pulse Source Pulse Oximeter Pulse Oximetry (%) 96 Oxygen Delivery Method Room Air Intake Visit Reasons: s/p left saphenous Sprint Bacteriology Professor Required: Yes Bacteriology Professor Services: Bacteriology Professor Offered & Declined Bacteriology Professor Name: prefers taj Allergies prednisone Allergy (Verified 03/12/25 09:45) Unknown Medication List - Last Reconciled 03/12/25 by Carmita Morales LPN acetaminophen ER mg PO albuterol sulfate 90 mcg/actuation 2 puffs inhalation Q6H PRN apixaban (Eliquis) 5 mg PO BID buspirone 15 mg PO BID calcium citrate-vitamin D3 315 mg-6.25 mcg (250 unit) 2 tabs PO BID conjugated estrogens (Premarin) vaginal desloratadine (Clarinex) 5 mg PO DAILY diltiazem HCl CD 180 mg PO DAILY escitalopram oxalate 10 mg PO DAILY fluticasone propionate 50 mcg/actuation 2 sprays intranasal DAILY PRN hydralazine 25 mg PO TID 90 days levothyroxine 50 mcg PO DAILY liraglutide 0.6 mg subcut DAILY lisinopril 40 mg PO DAILY mepolizumab (Nucala) mg subcut metoprolol succinate ER 25 mg PO DAILY montelukast 10 mg PO DAILY pantoprazole 40 mg PO DAILY pravastatin 80 mg PO BEDTIME spironolactone 25 mg PO DAILY HPI HPI s/p left saphenous Sprint: Details: History of Present Illness The patient is an 79-year-old female presenting with follow-up after the placement of a left saphenous nerve stimulator for left knee pain. She reports persistent pressure in the knee area and finds relief by setting the stimulator to 76. Instructions were given to reduce the setting to 65 to avoid muscle soreness. The patient has not changed the dressing since the last visit but is familiar with the procedure. Pain Description - Location: Left knee - Quality: Pressure sensation - Relief: Setting stimulator to 76 - Advised adjustment: Lower setting to 65 to prevent muscle soreness Physical Exam - Appears afebrile. - Alert and oriented. - Mood and affect appropriate. - Follows and participates in conversation appropriately. - Dressing site clean, dry, intact Pain Management - Analgesia: Relief achieved at stimulator setting of 76 - Activities of Daily Living: Advised to lower setting to 65 to prevent muscle soreness [facility] Medical History (Updated 12/11/23 @ 08:57 by Jose Sellers MD) Bilateral knee pain Diabetes Hypercholesteremia Asthma Hypertension Surgical History History of appendectomy Surgical history of tubal ligation Physical Exam Vital Signs: Last Vital Signs Pulse 75 03/12/25 09:44 Resp 16 03/12/25 09:44 BP 147/63 H 03/12/25 09:44 Pulse Ox 96 03/12/25 09:44 Oxygen Delivery Method Room Air 03/12/25 09:44 BMI result Body Mass Index 30.5 Assessment & Plan Assessment & Plan (1) Bilateral knee pain: Code(s): M25.561 - Pain in right knee; M25.562 - Pain in left knee Category: Medical Plan Plan - Follow-up scheduled in seven weeks to remove stimulator lead. - Patient advised to lower stimulator setting to prevent muscle soreness and tightness. Patient was informed and verbally consented to the use of an ambient scribe for clinic note documentation during this visit. Discussion Notes I discussed with the patient the importance of adjusting the stimulator setting to prevent muscle soreness and the procedure for changing the bandage if needed. Patient Instructions - Lower the stimulator setting to prevent muscle soreness. - Follow the procedure for changing the bandage if necessary. - Return for follow-up in seven weeks. Coding Level of Care Code Est Pt Level 3 (26853) Diagnoses Bilateral knee pain M25.561; M25.562
--- OUTSIDE RECORDS SUMMARY | 2025-03-12 10:05 | XMS_ITS | Clinical Summary ---
Author Organization [facility] Facility Address [address] [place] [address] Care Team Providers Care Tea Plantation Worker Name Role Phone Jessica Perrin MD Primary [...] complete this topic Insurance ([id number]) [place] [id number] [place] [address] ([id number]) [place] [id number] Care Teams Tea Plantation Worker Relationship Specialty Start Date End Date Jessica Perrin MD [address] PCP - General Family Medicine 10/01/22
== END 2025-03-12 09:58 | disposition home or self-care (01) ==
LOC: HO.PMC 09:40
PROVIDERS: PCP Family Medicine; Visit Provider Internal Medicine
DX: M25.561 Pain in right knee (principal); M25.562 Pain in left knee
CPT/HCPCS: 99213

== ENCOUNTER → 2025-03-12 09:40 | Outpatient (BNVA) | payer OTHER, SELFPAY | PROVIDERS: PCP Family Medicine; Visit Provider Internal Medicine | DX: M25.561 Pain in right knee (principal); M25.562 Pain in left knee | CPT/HCPCS: 99212 ==

== ENCOUNTER 2025-05-02 08:48 | Outpatient (AMB) | payer OTHER, SELFPAY ==
--- NOTE | 2025-05-02 08:54 | A.OFFVIS_ITS ---
Vital Signs 05/02/25 08:55 Height 5 ft 6 in Weight 183 lb BMI 29.5 BP 169/71 H Blood Pressure Location Lt brachial Position Sitting Respiration 16 Pulse 75 Pulse Source Pulse Oximeter Pulse Oximetry (%) 96 Oxygen Delivery Method Room Air Intake Visit Reasons: Sprint removal Intake Note: Sprint lead removed, intact including the tip Solution Engineer Required: Yes Solution Engineer Services: Solution Engineer Offered & Declined Solution Engineer Name: Prefers daughter to translate Accompanied by: Daughter Allergies prednisone Allergy (Verified 05/02/25 08:57) Unknown Medication List - Last Reconciled 05/02/25 by Carmita Morales LPN acetaminophen ER mg PO albuterol sulfate 90 mcg/actuation 2 puffs inhalation Q6H PRN apixaban (Eliquis) 5 mg PO BID buspirone 15 mg PO BID calcium citrate-vitamin D3 315 mg-6.25 mcg (250 unit) 2 tabs PO BID conjugated estrogens (Premarin) vaginal desloratadine (Clarinex) 5 mg PO DAILY diltiazem HCl CD 180 mg PO DAILY escitalopram oxalate 10 mg PO DAILY fluticasone propionate 50 mcg/actuation 2 sprays intranasal DAILY PRN hydralazine 25 mg PO TID 90 days levothyroxine 50 mcg PO DAILY liraglutide 0.6 mg subcut DAILY lisinopril 40 mg PO DAILY mepolizumab (Nucala) mg subcut montelukast 10 mg PO DAILY pantoprazole 40 mg PO DAILY pravastatin 80 mg PO BEDTIME spironolactone 25 mg PO DAILY HPI HPI Sprint removal: Details: History of Present Illness The patient is an 79-year-old female presenting for the removal of her temporary left saphenous nerve stimulator. She previously experienced excellent pain relief from the temporary saphenous nerve stimulator, but currently, she reports less relief and continues to experience lateral knee pain and new sensations of clicking in her knee. Her pain has decreased overall, but she experiences flares that are uncomfortable. She is allergic to steroids, which previously caused palpitations when administered parenterally, necessitating her to carry an EpiPen. She is not interested in repeating steroid injections and has arranged a follow-up with orthopedics to assess her candidacy for a total knee replacement. X-rays from 2021 did not show severe osteoarthritis, but new imaging will help determine her candidacy for surgery. Pain Description - Onset and Timing: Pain relief was initially excellent but has decreased over time. - Quality and Character: Lateral knee pain with new sensations of clicking. - Exacerbating Factors: Experiences flares of pain. Physical Exam - Lead removed with tip intact Results - X-rays from 2021: Did not show severe osteoarthritis; repeat imaging pending [facility] Medical History (Updated 12/11/23 @ 08:57 by Jose Sellers MD) Bilateral knee pain Diabetes Hypercholesteremia Asthma Hypertension Surgical History History of appendectomy Surgical history of tubal ligation Physical Exam Vital Signs: Last Vital Signs Pulse 75 05/02/25 08:55 Resp 16 05/02/25 08:55 BP 169/71 H 05/02/25 08:55 Pulse Ox 96 05/02/25 08:55 Oxygen Delivery Method Room Air 05/02/25 08:55 BMI result Body Mass Index 29.5 Assessment & Plan Assessment & Plan (1) Bilateral knee pain: Code(s): M25.561 - Pain in right knee; M25.562 - Pain in left knee Category: Medical Plan Plan - Follow-up with orthopedics to assess candidacy for total knee replacement. - If deemed non-surgical, consider alternative treatments such as different corticosteroid formulations or hyaluronic acid injections. Patient was informed and verbally consented to the use of an ambient scribe for clinic note documentation during this visit. Discussion Notes I discussed with the patient the current management of her knee pain and the potential for a total knee replacement if deemed appropriate by orthopedics. We also reviewed alternative treatment options, including different corticosteroid formulations or hyaluronic acid injections, should surgery not be an option. The patient expressed understanding and agreement with the plan. Patient Instructions - Follow up with orthopedics as scheduled to discuss knee replacement options. - Consider alternative treatments if surgery is not an option. Coding Level of Care Code Est Pt Level 3 (31244) Diagnoses Bilateral knee pain M25.561; M25.562
[2025-05-02 08:55] VITALS: BP 169/71; PULSE 75; RESP 16; O2SAT 96; BMI 29.5
--- OUTSIDE RECORDS SUMMARY | 2025-05-02 09:30 | XMS_ITS | Clinical Summary ---
Author Organization [facility] Facility Address [address] [place] [id number] Care Team Providers Care Residency Director Name Role Phone Jessica Perrin MD Primary [...] Visual Foot Exam 10/01/2022 Influenza Vaccine (#1) 2025 Pneumococcal Vaccine: 50+ Years Completed 12/25/2014, 11/20/2010, 08/13/1999 Pneumococcal Vaccine: Peds ( 0 to 5 Years) and At-Risk Patients (6 to 49 Years) Discontinued 12/25/2014, 11/20/2010, 08/13/1999 Hepatitis B Vaccine Aged Out No longe r eligible based on patient's age to complete this topic Insurance ([id number]) [place] [address] ([id number]) [place] [id number] Care Teams Residency Director Relationship Specialty Start Date End Date Jessica Perrin MD [address] PCP - General Family Medicine 10/01/22
== END 2025-05-02 09:51 | disposition home or self-care (01) ==
LOC: HO.PMC 08:48
PROVIDERS: PCP Family Medicine; Visit Provider Internal Medicine
DX: M25.561 Pain in right knee (principal); M25.562 Pain in left knee
CPT/HCPCS: 99213

== ENCOUNTER → 2025-05-02 08:48 | Outpatient (BNVA) | payer OTHER, SELFPAY | PROVIDERS: PCP Family Medicine; Visit Provider Internal Medicine | DX: M25.561 Pain in right knee (principal); M25.562 Pain in left knee | CPT/HCPCS: 99212 ==

== ENCOUNTER 2025-05-10 08:48 | Outpatient (REF) | payer OTHER, SELFPAY ==
--- NOTE | ~2025-05-10 | XR_ITS ---
EXAMINATION: XR KNEE, RIGHT XR KNEE, LEFT CLINICAL INFORMATION: Z98.890 - Other specified postprocedural states COMPARISON: 10/30/2021. TECHNIQUE: AP view bilateral knees standing, and lateral and sunrise views of each knee. FINDINGS: RIGHT KNEE: There is no fracture, dislocation, or suspicious bone lesion. There is normal alignment. There is mild tricompartmental joint space narrowing and osteoarthrosis. There is normal patellar alignment. There is no significant joint effusion. Soft tissues appear normal. LEFT KNEE: There is no fracture, dislocation, or suspicious bone lesion. There is normal alignment. There is mild tricompartmental joint space narrowing and osteoarthrosis. There is normal patellar alignment. There is no significant joint effusion. Soft tissues appear normal. XR/XR knee RT 2V IMPRESSION: 1. No acute bony abnormalities or joint effusion in either knee. 2. Mild tricompartmental osteoarthrosis bilaterally. Electronically signed by: Keo Huang MD 05/10/2025 09:28 AM EDT
--- NOTE | ~2025-05-10 | XR_ITS ---
EXAMINATION: XR KNEE, RIGHT XR KNEE, LEFT CLINICAL INFORMATION: Z98.890 - Other specified postprocedural states COMPARISON: 10/30/2021. TECHNIQUE: AP view bilateral knees standing, and lateral and sunrise views of each knee. FINDINGS: RIGHT KNEE: There is no fracture, dislocation, or suspicious bone lesion. There is normal alignment. There is mild tricompartmental joint space narrowing and osteoarthrosis. There is normal patellar alignment. There is no significant joint effusion. Soft tissues appear normal. LEFT KNEE: There is no fracture, dislocation, or suspicious bone lesion. There is normal alignment. There is mild tricompartmental joint space narrowing and osteoarthrosis. There is normal patellar alignment. There is no significant joint effusion. Soft tissues appear normal. XR/XR knee LT 3V IMPRESSION: 1. No acute bony abnormalities or joint effusion in either knee. 2. Mild tricompartmental osteoarthrosis bilaterally. Electronically signed by: Keo Huang MD 05/10/2025 09:28 AM EDT
== END 2025-05-10 08:49 | disposition home or self-care (01) ==
LOC: HO.HOSX 08:48
PROVIDERS: PCP Family Medicine; Visit Provider Orthopaedic Surgery
DX: M17.0 Bilateral primary osteoarthritis of knee (principal); M21.061 Valgus deformity, not elsewhere classified, right knee; M21.062 Valgus deformity, not elsewhere classified, left knee; M25.562 Pain in left knee; Z98.890 Other specified postprocedural states
CPT/HCPCS: 73560; 73562; 99212

== ENCOUNTER 2025-05-10 08:48 | Outpatient (AMB) | payer OTHER, SELFPAY ==
[2025-05-10 08:50] VITALS: BMI 29.5
--- NOTE | 2025-05-10 08:50 | MHC.OFFVIS ---
Vital Signs 05/10/25 08:50 Height 5 ft 6 in Weight 183 lb BMI 29.5 Intake Visit Reasons: OV - Bilateral Knee OA - Discuss Surgery Intake Note: Anneliese is an 79 year old female who presents today for a follow up of her Bilateral Knee OA with Valgus Mal-alignment. She has tried many procedures with pain management and is looking to discuss surgical options. (Specialists: Nephrology - Left renal artery stenosis) hx of procedures with pain management: 03/08/2025: Left Saphenous Sprint PNS - removed 05/02/25 10/14/22: Right Sprint PNS Implant ? >80% relief. 05/06/22: Left adductor canal saphenous nerve block, ultrasound-guided: 03/20/22: Right Diagnostic Saphenous NB at Adductor Canal ? 100% pain relief. Accompanied by: Jenni Allergies prednisone Allergy (Verified 05/02/25 08:57) Unknown HPI HPI OV - Bilateral Knee OA - Discuss Surgery: Details: Anneliese is an 79 year old female who presents today for a follow up of her Bilateral Knee OA with Valgus Mal-alignment. She has tried many procedures with pain management and is looking to discuss surgical options. She is able to walk with some discomfort. She describes pain in her left knee that has been present for years. She feels like nothing has helped. She has had steroid injections in the past but states she has not had gel injections. (Specialists: Nephrology - Left renal artery stenosis) hx of procedures with pain management: 03/08/2025: Left Saphenous Sprint PNS - removed 05/02/25 10/14/22: Right Sprint PNS Implant ? >80% relief. 05/06/22: Left adductor canal saphenous nerve block, ultrasound-guided: 03/20/22: Right Diagnostic Saphenous NB at Adductor Canal ? 100% pain relief. Accompanied by: Jenni [facility] Medical History (Updated 12/11/23 @ 08:57 by Jose Sellers MD) Bilateral knee pain Diabetes Hypercholesteremia Asthma Hypertension Surgical History History of appendectomy Surgical history of tubal ligation Physical Exam Vital Signs: BMI result Body Mass Index 29.5 Extrem Other: On exam this is a pleasant woman in no acute distress. She does have mild valgus malalignment bilaterally right greater than left. She has mild lateral joint pain in walks slowly but it is difficult to tell how much pain her knees are causing her. She states going up and downstairs is difficult but flat ground seems to be tolerable and short distances. She has warm feet with a palpable pedal pulse. Results Reviewed Results Reviewed: I personally reviewed relevant radiographs. Mild bilateral tricompartmental osteoarthritis Assessment & Plan Assessment & Plan (1) Localized osteoarthritis of knees, bilateral: Code(s): M17.0 - Bilateral primary osteoarthritis of knee Category: Medical Plan: This is a pleasant 79-year-old diabetic woman with radiographic mild osteoarthritis. She has had multiple attempts at pain control including injections and nerve stimulators but has not been improving. I do not see a role for arthroplasty in his patient. Radiographically her arthritis is not impressive and I worry that she does not have the strength to tolerate and recover from the surgery. I would recommend viscosupplementation at this point. I discussed this with her. She is happy with that plan. The left knee is bothering her more than the right and so we will proceed forward with that in the left knee. Orders: Orders XR knee LT 3V 05/10/25 M25.562 - Pain in left knee XR knee RT 2V 05/10/25 Z98.890 - Other specified postprocedural states Coding Level of Care Code Est Pt Level 4 (37429) Diagnoses Localized osteoarthritis of knees, bilateral M17.0
--- OUTSIDE RECORDS SUMMARY | 2025-05-10 09:34 | XMS_ITS | Clinical Summary ---
Author Organization [facility] Facility Address [address] [place] [address] Care Team Providers Care Scrap Sawyer Name Role Phone Jessica Perrin MD Primary [...] age to complete this topic Insurance ([id number]) [place] [address] ([id number]) [place] [id number] Care Teams Scrap Sawyer Relationship Specialty Start Date End Date Jessica Perrin MD [address] PCP - General Family Medicine 10/01/22
== END 2025-05-10 09:27 | disposition home or self-care (01) ==
LOC: HO.HOS 08:49
PROVIDERS: PCP Family Medicine; Visit Provider Orthopaedic Surgery
DX: M17.0 Bilateral primary osteoarthritis of knee (principal)
CPT/HCPCS: 99214

== ENCOUNTER → 2025-05-10 08:58 | Outpatient (BNV) | payer OTHER, SELFPAY | PROVIDERS: PCP Family Medicine; Visit Provider Radiology Diagnostic Radiology | DX: M17.0 Bilateral primary osteoarthritis of knee (principal) | CPT/HCPCS: 73560; 73562 ==

== ENCOUNTER 2025-06-14 11:50 | Outpatient (AMB) | payer OTHER, SELFPAY ==
--- NOTE | 2025-06-14 12:19 | HO.NEPHOV ---
Vital Signs 06/14/25 12:26 Height 5 ft 6 in Weight 189 lb 4 oz BMI 30.5 BP 160/70 H Blood Pressure Location Lt brachial Position Sitting Pulse 70 Pulse Source Pulse Oximeter Pulse Oximetry (%) 97 Oxygen Delivery Method Room Air Intake Visit Reasons: 6mon follow-up w/labs-LVM Electric Shaver Mechanic Required: Yes Electric Shaver Mechanic Language: Training Executive Services: Electric Shaver Mechanic Offered & Declined ([facility] Electric Shaver Mechanic services refused ) Accompanied by: Daughter Allergies prednisone Allergy (Verified 06/14/25 12:26) Unknown HPI Comments Details: Anneliese was seen in follow-up for mild left renal artery stenosis and hypertension. She has H/O hypertensive urgency. She is a diabetic and blood sugars are fairly better control. She has been on multiple antihypertensive medications. She is not good with low sodium diet and her BP has gone up lately. She has no history of coronary artery disease, CVA, CHF or PAD. She denies any chest pain, shortness of breath, proximal nocturnal dyspnea, orthopnea, orthostatic symptoms, urinary symptoms. She has no pedal edema. She is compliant with her medications. She currently feels well [facility] Medical History (Updated 12/11/23 @ 08:57 by Jose Sellers MD) Bilateral knee pain Diabetes Hypercholesteremia Asthma Hypertension Surgical History History of appendectomy Surgical history of tubal ligation Review of Systems Const All systems reviewed & are unremarkable except as noted in HPI and below Physical Exam Vital Signs: Last Vital Signs Pulse 70 06/14/25 12:26 BP 160/70 H 06/14/25 12:26 Pulse Ox 97 06/14/25 12:26 Oxygen Delivery Method Room Air 06/14/25 12:26 BMI result Body Mass Index 30.5 Const General: comfortable and no acute distress Orientation/consciousness: patient oriented x3 HEENT Head: Yes normocephalic Mouth: Normal oral and palatal mucosa present Eyes EOM: EOMs intact bilaterally Neck Neck: Yes supple Resp Auscultation: clear to auscultation bilaterally Cardio Jugular venous distension: no JVD Rate: regular rate GI Palpation (GI): Soft to palpation Auscultation: normal bowel sounds General: Yes no CVA tenderness Back/Spine/Pelvis Back: no CVA tenderness Skin General skin exam: no rashes or lesions noted Neuro General: patient oriented x3 and moves all extremities Extrem General: Yes no pedal edema Assessment & Plan Assessment & Plan (1) Hypertension: Code(s): I10 - Essential (primary) hypertension Category: Medical Qualifiers: Hypertension type: primary hypertension Qualified Code(s): I10 - Essential (primary) hypertension (2) Renal artery stenosis, [place]: Code(s): I70.1 - Atherosclerosis of renal artery Category: Medical Plan Anneliese is known to have longstanding hypertension. She was found to have mild left renal artery stenosis. She has H/O hypertensive urgency. Her blood pressure is not well controlled now. I increased her hydralazine to 50 mg tid. She has no orthostasis. Her renal functions are at baseline. She tries to cut back on her salt intake. She does not have any hypervolemia. She needs to lose some weight. I shall order repeat Doppler of renal arteries after next visit . She is on statins. I did not make any other medication changes today. All her and her daughter's questions were answered. Orders: Orders Electrolytes 6 Weeks I10 - Essential (primary) hypertension, I70.1 - Atherosclerosis of renal artery Blood Urea Nitrogen 6 Weeks I10 - Essential (primary) hypertension, I70.1 - Atherosclerosis of renal artery Protein Creatinine Ratio, Ur Today I10 - Essential (primary) hypertension, I70.1 - Atherosclerosis of renal artery Electrolytes Today I10 - Essential (primary) hypertension, I70.1 - Atherosclerosis of renal artery Blood Urea Nitrogen Today I10 - Essential (primary) hypertension, I70.1 - Atherosclerosis of renal artery Creatinine Today I10 - Essential (primary) hypertension, I70.1 - Atherosclerosis of renal artery Creatinine 6 Weeks I10 - Essential (primary) hypertension, I70.1 - Atherosclerosis of renal artery Coding Level of Care Code Est Pt Level 4 (10138) Diagnoses Primary hypertension I10 Hypertension type: primary hypertension Renal artery stenosis, [place] I70.1
[2025-06-14 12:26] VITALS: BP 160/70; PULSE 70; O2SAT 97; BMI 30.5
--- OUTSIDE RECORDS SUMMARY | 2025-06-14 13:33 | XMS_ITS | Clinical Summary ---
Author Organization [facility] Facility Address [address] [place] [address] Care Team Providers Care Inorganic Chemist Name Role Phone Jessica Perrin MD Primary [...] age to complete this topic Insurance ([id number]) [place] [address] ([id number]) [place] [id number] Care Teams Inorganic Chemist Relationship Specialty Start Date End Date Jessica Perrin MD [address] PCP - General Family Medicine 10/01/22
== END 2025-06-14 12:38 | disposition home or self-care (01) ==
LOC: HO.HKAS 11:50
PROVIDERS: PCP Family Medicine; Visit Provider Internal Medicine Nephrology
DX: I10 Essential (primary) hypertension (principal); I70.1 Atherosclerosis of renal artery
CPT/HCPCS: 99214

== ENCOUNTER → 2025-06-14 11:50 | Outpatient (BNVA) | payer OTHER, SELFPAY | PROVIDERS: PCP Family Medicine; Visit Provider Internal Medicine Nephrology | DX: M17.0 Bilateral primary osteoarthritis of knee (principal) | CPT/HCPCS: 20610; 99212; J7318 ==

== ENCOUNTER 2025-06-14 13:58 | Outpatient (AMB) | payer OTHER, SELFPAY ==
--- NOTE | 2025-06-14 14:30 | A.OFFVIS_ITS ---
Intake Visit Reasons: Inj-Left knee Durolane Intake Note: Anneliese is an 79 year old female who presents today for a Left Knee Durolane Injection. Allergies prednisone Allergy (Verified 06/14/25 12:26) Unknown HPI HPI Inj-Left knee Durolane: Details: Anneliese is an 79 year old female who presents today for a Left Knee Durolane Injection. COUNTS INCLUDE 234 BEDS AT [facility] Medical History (Updated 12/11/23 @ 08:57 by Jose Sellers MD) Bilateral knee pain Diabetes Hypercholesteremia Asthma Hypertension Surgical History History of appendectomy Surgical history of tubal ligation Physical Exam Exam Exam: No acute distress Skin over left knee clean dry and intact Office Procedures Joint Inj/Aspir; Non-Pain Clin Joint Injection/Drain Details: Injected Durolane. Site was prepped using aseptic technique. Patient tolerated the procedure well. Shoulders, Hips, Knees, Knee Large Joint Injection : Left Knee Coding Procedure code (CPT) selection complete Assessment & Plan Assessment & Plan (1) Localized osteoarthritis of knees, bilateral: Code(s): M17.0 - Bilateral primary osteoarthritis of knee Category: Medical Plan: Left knee Micheline injection. Coding Level of Care Code Est Pt Level 2 (86112) Diagnoses Localized osteoarthritis of knees, bilateral M17.0 CPT Codes Shoulders, Hips, Knees, - Knee Large Joint Injection : Left Knee ([id number])
== END 2025-06-14 14:48 | disposition home or self-care (01) ==
LOC: HO.HOS 13:59
PROVIDERS: PCP Family Medicine; Visit Provider Orthopaedic Surgery
DX: M17.0 Bilateral primary osteoarthritis of knee (principal)
CPT/HCPCS: 20610

== ENCOUNTER 2025-08-13 09:52 | Outpatient (REF) | payer OTHER, SELFPAY ==
--- OUTSIDE RECORDS SUMMARY | 2025-08-13 11:54 | XMS_ITS | Clinical Summary ---
Author Organization [facility] Facility Address [address] [place] [address] Care Team Providers Care Salesperson Used Cars Name Role Phone Jessica Perrin MD Primary [...] age to complete this topic Insurance ([id number]) [place] [address] ([id number]) [place] [id number] Care Teams Salesperson Used Cars Relationship Specialty Start Date End Date Jessica Perrin MD [address] PCP - General Family Medicine 10/01/22
[2025-08-13 13:58] LABS: Anion Gap 13 (12-20); Blood Urea Nitrogen 22 mg/dL (9-16); Carbon Dioxide 27 mmol/L (22-29); Chloride 104 mmol/L (96-108); Estimated Glomerular Filt Rate 53; Potassium 4.2 mmol/L (3.3-5.1); Sodium 140 mmol/L (135-145)
== END 2025-08-13 09:53 | disposition home or self-care (01) ==
LOC: HO.HKASLDS 09:52
PROVIDERS: PCP Family Medicine; Visit Provider Internal Medicine Nephrology
DX: I70.1 Atherosclerosis of renal artery (principal); I10 Essential (primary) hypertension
CPT/HCPCS: 36415; 80051; 82565; 84520

== ENCOUNTER 2025-08-23 13:07 | Outpatient (AMB) | payer OTHER, SELFPAY ==
--- NOTE | 2025-08-23 13:26 | HO.NEPHOV ---
Vital Signs 08/23/25 13:30 Height 5 ft 6 in Weight 184 lb 6 oz BMI 29.8 BP 112/60 Blood Pressure Location Lt brachial Position Sitting Pulse 80 Pulse Source Pulse Oximeter Pulse Oximetry (%) 96 Oxygen Delivery Method Room Air Intake Visit Reasons: 2mon f/u w/labs-LVM [employer] Required: No Accompanied by: Daughter Allergies prednisone Allergy (Verified 08/23/25 13:30) Unknown HPI Comments Details: Anneliese was seen in follow-up for mild left renal artery stenosis and hypertension. She has H/O hypertensive urgency. She is a diabetic and blood sugars are fairly better control. She has been on multiple antihypertensive medications. She is not good with low sodium diet and her BP has gone up lately. She has no history of coronary artery disease, CVA, CHF or PAD. She denies any chest pain, shortness of breath, proximal nocturnal dyspnea, orthopnea, orthostatic symptoms, urinary symptoms. She has no pedal edema. She is compliant with her medications. She currently feels well [facility] Medical History (Updated 12/11/23 @ 08:57 by Jose Sellers MD) Bilateral knee pain Diabetes Hypercholesteremia Asthma Hypertension Surgical History History of appendectomy Surgical history of tubal ligation Review of Systems Const All systems reviewed & are unremarkable except as noted in HPI and below Physical Exam Vital Signs: Last Vital Signs Pulse 80 08/23/25 13:30 BP 112/60 08/23/25 13:30 Pulse Ox 96 08/23/25 13:30 Oxygen Delivery Method Room Air 08/23/25 13:30 BMI result Body Mass Index 29.8 Const General: comfortable and no acute distress Orientation/consciousness: patient oriented x3 HEENT Head: Yes normocephalic Mouth: Normal oral and palatal mucosa present Eyes EOM: EOMs intact bilaterally Neck Neck: Yes supple Resp Auscultation: clear to auscultation bilaterally Cardio Jugular venous distension: no JVD Rate: regular rate GI Palpation (GI): Soft to palpation Auscultation: normal bowel sounds General: Yes no CVA tenderness Back/Spine/Pelvis Back: no CVA tenderness Skin General skin exam: no rashes or lesions noted Neuro General: patient oriented x3 and moves all extremities Extrem General: Yes no pedal edema Results Reviewed Nephrology Results: Sodium, (135-145) 140 mmol/L 08/13/25 Potassium, (3.3-5.1) 4.2 mmol/L 08/13/25 Chloride, (96-108) 104 mmol/L 08/13/25 Carbon Dioxide, (22-29) 27 mmol/L 08/13/25 BUN, (9-16) 22 mg/dL H 08/13/25 Creatinine, (0.5-1.4) 1.01 mg/dL 08/13/25 Assessment & Plan Assessment & Plan (1) Hypertension: Code(s): I10 - Essential (primary) hypertension Category: Medical Qualifiers: Hypertension type: primary hypertension Qualified Code(s): I10 - Essential (primary) hypertension (2) Renal artery stenosis, tunica-biloxi: Code(s): I70.1 - Atherosclerosis of renal artery Category: Medical Plan Anneliese is known to have longstanding hypertension. She was found to have mild left renal artery stenosis. She has H/O hypertensive urgency. Her blood pressure is well controlled now. She has no orthostasis. Her renal functions are neli to baseline. She tries to cut back on her salt intake. She does not have any hypervolemia. She needs to lose some weight. I shall order repeat Doppler of renal arteries after next visit . She is on statins. I did not make any other medication changes today. All her and her daughter's questions were answered. Orders: Orders Electrolytes 3 Months I10 - Essential (primary) hypertension, I70.1 - Atherosclerosis of renal artery Blood Urea Nitrogen 3 Months I10 - Essential (primary) hypertension, I70.1 - Atherosclerosis of renal artery Creatinine 3 Months I10 - Essential (primary) hypertension, I70.1 - Atherosclerosis of renal artery Coding Level of Care Code Est Pt Level 4 (03137) Diagnoses Primary hypertension I10 Hypertension type: primary hypertension Renal artery stenosis, tunica-biloxi I70.1
[2025-08-23 13:30] VITALS: BP 112/60; PULSE 80; O2SAT 96; BMI 29.8
== END 2025-08-23 13:49 | disposition home or self-care (01) ==
LOC: HO.HKAS 13:08
PROVIDERS: PCP Family Medicine; Visit Provider Internal Medicine Nephrology
DX: I10 Essential (primary) hypertension (principal); I70.1 Atherosclerosis of renal artery
CPT/HCPCS: 99214

== ENCOUNTER → 2025-08-23 13:07 | Outpatient (BNVA) | payer OTHER, SELFPAY | PROVIDERS: PCP Family Medicine; Visit Provider Internal Medicine Nephrology | DX: I10 Essential (primary) hypertension (principal); I70.1 Atherosclerosis of renal artery; Z79.899 Other long term (current) drug therapy | CPT/HCPCS: 99212 ==